=== PATIENT | male | born 1940 | race Caucasian/White ===

== ENCOUNTER 2018-04-14 15:43 | Outpatient (REF) | payer MEDICARE, SELFPAY ==
[2018-04-14 19:17] LABS: HCT 44.8 % (40.0-50.0); HGB 14.6 g/dL (13.5-17.5); Mean Corp. HGB Concentration 32.6 g/dL (32.0-36.0); Mean Corpuscular Hemoglobin 29.4 pg (27.0-33.0); Mean Corpuscular Volume 90.1 fL (80-95); Platelet Count 124 x1000/uL (130-400); RBC 4.97 m/cumm (4.50-6.00); RBC Distribution Width 15.8 % (11.8-14.1); White Blood Cell Count 4.65 k/cumm (4.4-10.8)
[2018-04-14 19:57] LABS: Anion Gap 6.5 mmol/L (3-11); BUN 28 mg/dL (7-18); CO2 30.5 mmol/L (21.0-32.0); CREATININE 1.52 mg/dL (0.70-1.30); Calcium 8.3 mg/dL (8.5-10.1); Chloride 102 mmol/L (98-107); Estimated GFR 44.58 (mL/min/1.73m2); Glucose 123 mg/dL (70-100); LDL CHOLESTEROL 56 mg/dL (<100); Potassium 4.1 mmol/L (3.5-5.1); Sodium 139 mmol/L (136-145)
== END 2018-04-14 16:03 ==
LOC: NCHCN 15:43
PROVIDERS: PCP Internal Medicine; Visit Provider Internal Medicine
DX: I10 Essential (primary) hypertension (principal); Z79.01 Long term (current) use of anticoagulants; K74.60 Unspecified cirrhosis of liver; I48.0 Paroxysmal atrial fibrillation; Z86.2 Personal history of diseases of the blood and blood-forming organs and certain disorders involving the immune mechanism
CPT/HCPCS: 80048; 83721; 85027

== ENCOUNTER → 2018-05-04 12:59 | Outpatient (BNVA) | payer MEDICARE, SELFPAY | PROVIDERS: PCP Internal Medicine; Visit Provider Student in an Organized Health Care Education/Training Program | DX: I25.810 Atherosclerosis of coronary artery bypass graft(s) without angina pectoris (principal); I48.2 Chronic atrial fibrillation; I10 Essential (primary) hypertension; Z95.818 Presence of other cardiac implants and grafts; I08.1 Rheumatic disorders of both mitral and tricuspid valves | CPT/HCPCS: 99214 ==

== ENCOUNTER 2018-10-13 11:31 | Outpatient (REF) | payer MEDICARE, SELFPAY ==
[2018-10-13 18:33] LABS: HCT 46.7 % (40.0-50.0); HGB 15.3 g/dL (13.5-17.5); Mean Corp. HGB Concentration 32.8 g/dL (32.0-36.0); Mean Corpuscular Hemoglobin 29.4 pg (27.0-33.0); Mean Corpuscular Volume 89.6 fL (80-95); Mean Platelet Volume 12.4 fL (8.0-11.0); Platelet Count 109 x1000/uL (130-400); RBC 5.21 m/cumm (4.50-6.00); RBC Distribution Width 15.3 % (11.8-14.1); White Blood Cell Count 4.76 k/cumm (4.4-10.8)
[2018-10-13 18:36] LABS: Albumin 4.4 g/dL (3.4-5.0); BUN 25 mg/dL (7-18); CREATININE 1.31 mg/dL (0.70-1.30); Chloride 102 mmol/L (98-107); Estimated GFR 52.92 (mL/min/1.73m2); Glucose 87 mg/dL (70-100); LDL CHOLESTEROL 55 mg/dL (<100); Potassium 4.7 mmol/L (3.5-5.1); Sodium 141 mmol/L (136-145)
[2018-10-13 19:07] LABS: ALT 31 U/L (12-78); PHOSPHORUS 2.9 mg/dL (2.6-4.7)
== END 2018-10-13 11:51 ==
LOC: NCHCN 11:31
PROVIDERS: PCP Internal Medicine; Visit Provider Internal Medicine
DX: I13.10 Hypertensive heart and chronic kidney disease without heart failure, with stage 1 through stage 4 chronic kidney disease, or unspecified chronic kidney disease (principal); I27.81 Cor pulmonale (chronic); I07.1 Rheumatic tricuspid insufficiency; R18.8 Other ascites
CPT/HCPCS: 80069; 83721; 85027; 84460

== ENCOUNTER → 2018-11-02 12:39 | Outpatient (BNVA) | payer MEDICARE, SELFPAY | PROVIDERS: PCP Internal Medicine; Visit Provider Student in an Organized Health Care Education/Training Program | DX: I36.1 Nonrheumatic tricuspid (valve) insufficiency (principal); I25.10 Atherosclerotic heart disease of native coronary artery without angina pectoris; Z95.4 Presence of other heart-valve replacement; I48.2 Chronic atrial fibrillation; I10 Essential (primary) hypertension | CPT/HCPCS: 99214 ==

== ENCOUNTER 2019-05-03 00:35 | Outpatient (CLI) | payer MEDICARE, SELFPAY ==
--- NOTE | 2019-05-03 09:58 | DI.US_ITS ---
APPROVED REPORT Conclusion Left Ventricle : Left ventricle is borderline dilated. D-shaped septum is consistent with RV pressure and volume overload. Left ventricular systolic function is mild to moderately decreased. Mild concen tric left ventricular hypertrophy. There is normal LV segmental wall motion. LVEF is 45-50%. The di astolic function is indeterminate but likely elevated filling pressures. Right Ventricle : Right ventricle dilated. Right ventricle is moderately hypokinetic. Atria : Left atrium is severely dilated. Right atrium is severely dilated. Aortic Valve : Aortic valve is trileaflet. There is normal aortic valve excursion. Moderate aortic re gurgitation. Mitral Valve : Mitral valve leaflets are thickened. Mitral annuloplasty changes are present. Moderate to severe mitral regurgitation (RF 51%) Mild to moderate mitral stenosis (mean gradient is 5mmhg) Tricuspid Valve : The tricuspid valve leaflets are thickened but open well. Severe tricuspid regurgit ation with hepatic flow reversal. The tricuspid valve leaflets do not completely coapt. Great Vessels : Dilated IVC with poor inspiration collapse is consistent with elevated right atrial p ressure. Compared to echocardiogram dated 07/02/2017 there is a minimal decrease in ejection fraction. Tricus pid regurgitation remains severe and mitral as well as aortic regurgitation remain moderate. EXAM: Comprehensive 2D, Doppler, and color-flow Echocardiogram Patient Location: Out-Patient Seed Cle[employer] Manager: Harini Proctor [facility] ([facility] Indications: CAD, TR, i07.1, i25.10 Left Ventricle Left ventricle is borderline dilated. D-shaped septum is consistent with RV pressure and volume overl oad. Left ventricular systolic function is mild to moderately decreased. Mild concentric left ventric ular hypertrophy. There is normal LV segmental wall motion. The diastolic function is indeterminate b ut likely elevated filling pressures. LVEF is 45-50%. Right Ventricle Right ventricle dilated. Right ventricle is moderately hypokinetic. Atria Left atrium is severely dilated. Right atrium is severely dilated. Aortic Valve Aortic valve is trileaflet. There is normal aortic valve excursion. Moderate aortic regurgitation. Mitral Valve Mitral valve leaflets are thickened. Mitral annuloplasty changes are present. Mild to moderate mitral stenosis (mean gradient is 5mmhg) Moderate to severe mitral regurgitation (RF 51%) Tricuspid Valve The tricuspid valve leaflets are thickened but open well. Severe tricuspid regurgitation with hepatic flow reversal. The tricuspid valve leaflets do not completely coapt. Great Vessels Aortic root is dilated. Dilated IVC with poor inspiration collapse is consistent with elevated right atrial pressure. Pericardium There is no pericardial effusion. 2D Dimensions IVSd 1.13 cm M: 0.6-1.2 LV EDV A2C 112.80 mL PWd 1.27 cm M: 0.6 - 1.2 LV EDV A4C 92.50 mL LVDd 5.62 cm M: 4.2 - 5.9 LA Volume Index A2C 115.16 mL/m2 LVDs 3.92 cm M: 2.5 - 4.0 LA Volume Index A4C 153.02 mL/m2 Aortic Root 3.97 cm M: 3.1 - 3.7 LA Volume Index Biplane 145.35 mL/m2 RA Area A4C 45.98 cm2 LA Area A4C 57.42 cm2 LVOT 2.22 cm (M/F) 1.5-2.5 LA Area A2C 45.50 cm2 Ascending Aorta 3.41 cm M: 2.6 - 3.4 EF AP4 48.76 % LVEF (Teich) 57.12 % EF AP2 45.48 % LVEF ([employer]) 48.81 % M: 52 - 72 EF BP 48.81 % LV Volume 81.12 mL M: 62 - 150 LV Volume Index 40.96 mL/m2 M: 34 - 74 FS 30.37 % LV Diastology MED E' 0.08 (>0.07 m/s) LV E/e MED 20.70 (<14) LAT E' 0.13 (>0.1 m/s) LV E/e LAT 12.98 (<14) Aortic Valve LVOT Area 3.85 cm2 LVOT Peak Cruzito. 0.66 m/s LVOT Mean Cruzito. 0.53 m/s LVOT Peak Gr. 1.72 mmHg ELINA Vmax Index 1.24 cm2/m2 LVOT Mean Gr. 1.20 mmHg LVOT VTI 0.15 m ELINA Mean Cruzito. Index 1.30 cm2/m2 AoV Peak Cruzito. 1.02 (0.5-1.3 m/s) AoV Mean Cruzito. 0.79 m/s AI PHT 350.86 msec AO Peak GR. 4.20 mmHg AO Mean GR. 2.69 (<5 mmHg) AO VTI 0.22 (0.18-0.25 m) AV Regurg Decel. 1209.87 msec ELINA (VTI) 2.60 (2.5-4.5 cm2) ELINA (VTI) Index 1.31 cm/m2 Mitral Valve MV E Max Cruzito. 1.62 (0.4-1.3 m/s) MV Regurg Volume 60.29 mL MV PHT 94.47 msec MV RF 51.62 % MVA PHT 2.33 cm2 Tricuspid Valve TR P. Velocity 2.99 m/s TV Regurg Vmax 2.99 m/s TR P. Gradient 35.81 mmHg
== END 2019-05-03 00:55 ==
PROVIDERS: PCP Internal Medicine; Visit Provider Student in an Organized Health Care Education/Training Program
DX: I07.1 Rheumatic tricuspid insufficiency (principal); I25.10 Atherosclerotic heart disease of native coronary artery without angina pectoris; I05.2 Rheumatic mitral stenosis with insufficiency; I50.1 Left ventricular failure, unspecified; I51.7 Cardiomegaly
CPT/HCPCS: 93306

== ENCOUNTER 2019-05-10 12:25 | Emergency (ER) | payer MEDICARE, SELFPAY ==
[2019-05-10] VITALS (7 sets, daily range): BP systolic 104–144; BP diastolic 66–90; PULSE 59–72; RESP 16–20; TEMP 36.1; O2SAT 97–98
--- NOTE | 2019-05-10 12:39 | W.ED.GENAD ---
Discharge Plan Disposition Patient Disposition: HOME Condition: Stable Discharge Details Chief Complaint: Abd Prob Clinical Impression: Hernia, inguinal, right Primary Care Provider: Rudolph Ryan ED Provider: Barby Greer Home Meds and New Rx's Prescriptions: Continued bisacodyl [Dulcolax (bisacodyl)] 5 MG tablet,delayed release (DR/EC) 5 mg PO ONCE Qty: 4 RF: 0 furosemide 40 MG tablet 40 mg PO DAILY Qty: 30 RF: 0 diltiazem HCl 180 MG capsule,extended release 24 hr 180 mg PO DAILY Qty: 30 RF: 0 aspirin [Aspir-81] 81 MG tablet,delayed release (DR/EC) 81 mg PO DAILY RF: 0 warfarin [Coumadin] 5 MG tablet 5 mg PO QPM RF: 0 atorvastatin [Lipitor] 40 MG tablet 40 mg PO HS RF: 0 losartan 50 MG tablet 50 mg PO DAILY RF: 0 ranitidine HCl [Zantac] 150 MG tablet 150 mg PO BID Qty: 28 RF: 0 Discharge Instructions Instructions: Inguinal Hernia (ED) Additional Instructions: Please continue all your medications including Coumadin as prescribed. Please return immediately to the emergency department if you develop any new or worsening symptoms or if you become otherwise concerned. It is extremely important that you call soon as possible to make an appointment to be seen in follow-up for this visit by a surgeon at [facility] as we discussed, and also by your primary care doctor. Referrals: Rudolph Ryan [Primary Care Provider] - Medical Decision Making Jonathan Garcia is a 78-year-old man with a history of atrial fibrillation on Coumadin, hypertension, hyperlipidemia, coronary artery disease status post CABG, known inguinal hernia who presented to the emergency department with inguinal hernia unable to be reduced at home, one episode of vomiting. On exam patient is well and nontoxic appearing but uncomfortable. Abdominal exam is benign, no right inguinal hernia is present, firm with overlying erythema, very tender to palpation. Concern for possible incarcerated hernia. Exam/history is not consistent with acute aortic process, sepsis. Plan for IV, IV morphine, screening labs, Trendelenburg position plus ice, anticipate likely CT scan. Hernia not reducible by me at bedside after pain medication, ice, Trendelenburg, plan for CT. 14:55: Received call from radiology regarding CT scan results: Inguinal hernia causing obstruction. Patient continues to be uncomfortable, unable to reduce hernia at bedside. After receiving radiology report surgery at [facility] paged, [facility] transfer center contacted immediately and images pushed. 1530: no callback from [facility]. Dr. Kasper has been at bedside with the patient, cannot reduce hernia. She plans to taken to the operating room, requests IV vitamin K. Dr. Kasper called back, request FFP as there will be a delay taking patient to the OR (OR currently being used). I did call [facility] back, transfer center states that they are receiving images extremely slowly, and will call back as soon as CT fully received. Per CRNAs, based on patient 3's recent echocardiogram, he is not a candidate for surgery at [facility] unless surgery is emergent. Dr. Kasper back at bedside attending to reduce. Hernia reduced. No vitamin K or FFP was given prior to reduction. Plan to observe patient in the emergency department, p.o. challenge Patient observed, patient reassessed multiple times, hernia still reduced. Patient tolerated p.o. without issue. Dr. Kasper has sent referral to [facility] for evaluation for surgical repair on a nonemergent basis. I had a lengthy discussion with the patient and his family regarding return to emergency department precautions including red flags for which to return, home care, and importance of outpatient follow-up with his primary care doctor and also with surgery at [facility]. Patient his family verbalized understanding of the plan and were amenable. All questions were answered. Patient was discharged home with clear plan for outpatient follow-up. Medical Records Medical records reviewed: Yes I reviewed the patient's medical records. Imaging Data Radiologic Study: Attestation: I personally reviewed and interpreted this imaging study as follows: Radiologist's impression: EXAM: CT ABDOMEN PELVIS W CLINICAL HISTORY: inguinal hernia, non-reducible TECHNIQUE: CT was performed according to usual protocol. COMPARISON: ABD PELVIS WITH CONTRAST from 05/07/2017 FINDINGS: There is generalized cardiomegaly. There is a hiatal hernia. The liver is normal in size. There is a 1.8 cm cyst in the left lobe of the liver. This has shown some interval increase in size compared to the prior examination. No suspicious hepatic mass is seen. The portal, superior mesenteric, and splenic veins are patent. There are stones seen within the gallbladder. No biliary ductal dilatation is present. The pancreas, spleen and adrenal glands are unremarkable. The kidneys and ureters are unremarkable. The urinary bladder is intact. The prostate gland is enlarged and impinges upon the base of the urinary bladder. There is atherosclerosis of the abdominal aorta. No aneurysmal dilatation is present. No significant abdominal or pelvic adenopathy or pneumoperitoneum is present. No ascites is present. There is a right inguinal hernia. The hernia contains a loop of small bowel. The bowel is dilated within the hernia sac. The small bowel loops proximal to the hernia are moderately dilated. The findings are consistent with an obstruction. The small bowel distal to the hernia and the colon are of normal caliber. There is diverticulosis of the colon but no evidence of acute diverticulitis. Degenerative changes are seen in the spine. There is an S-type scoliotic curvature of the thoracolumbar spine. IMPRESSION: 1. Right inguinal hernia containing a loop of small bowel. Bowel within the hernia sac is dilated. There is also dilatation of the small bowel proximal to the hernia. The findings consistent with obstruction. The bowel within the hernia shows no evidence of bowel wall thickening and there does appear to be normal enhancement of the wall. 2. These findings were discussed with Dr. Barby Greer on the date of the examination. 3. Incidental findings in the abdomen and pelvis as described above. Lab Data Lab results reviewed: Yes I reviewed the patient's lab results. Labs: Laboratory Tests Range/Units 05/10/19 05/10/19 05/10/19 12:56 12:56 12:56 WBC (4.4-10.8) k/cumm 7.82 RBC (4.50-6.00) m/cumm 4.99 Hgb (13.5-17.5) g/dL 14.8 Hct (40.0-50.0) % 45.4 MCV (80-95) fL 91.0 MCH (27.0-33.0) pg 29.7 MCHC (32.0-36.0) g/dL 32.6 RDW (11.8-14.1) % 14.8 H Plt Count (130-400) x1000/uL 130 MPV (8.0-11.0) fL 11.5 H Immature Gran % 0.1 Neutrophils % 87.2 Lymphocytes % 3.7 Monocytes % 8.4 Eosinophils % 0.5 Basophils % 0.1 Absolute Neutrophils (1.2-6.7) k/cumm 6.81 H Absolute Lymphocytes (1.2-3.4) k/cumm 0.29 L Absolute Monocytes (0.11-0.7) k/cumm 0.66 Absolute Eosinophils (0.0-0.7) k/cumm 0.04 Absolute Basophils (0.0-0.2) k/cumm 0.01 PT (9.3-11.0) sec INR (0.9-1.1) Sodium (136-145) mmol/L 139 Potassium (3.5-5.1) mmol/L 4.4 Chloride (98-107) mmol/L 103 Carbon Dioxide (21.0-32.0) mmol/L 26.4 Anion Gap (3-11) mmol/L 9.6 BUN (7-18) mg/dL 24 H Creatinine (0.70-1.30) mg/dL 1.17 Estimated GFR/1.73 m2 (mL/min/1.73m2) >= 60.00 Glucose (70-100) mg/dL 136 H Lactate (0.6-1.4) mmol/L 0.8 Calcium (8.5-10.1) mg/dL 8.9 Total Bilirubin (0.2-1.0) mg/dL 1.8 H AST (15-37) U/L 43 H ALT (16-63) U/L 33 Alkaline Phosphatase (46-116) U/L 78 Total Protein (6.4-8.2) g/dL 7.1 Albumin (3.4-5.0) g/dL 3.1 L Patient ABO/Rh Antibody Screen Range/Units 05/10/19 05/10/19 12:56 15:30 WBC (4.4-10.8) k/cumm RBC (4.50-6.00) m/cumm Hgb (13.5-17.5) g/dL Hct (40.0-50.0) % MCV (80-95) fL MCH (27.0-33.0) pg MCHC (32.0-36.0) g/dL RDW (11.8-14.1) % Plt Count (130-400) x1000/uL MPV (8.0-11.0) fL Immature Gran % Neutrophils % Lymphocytes % Monocytes % Eosinophils % Basophils % Absolute Neutrophils (1.2-6.7) k/cumm Absolute Lymphocytes (1.2-3.4) k/cumm Absolute Monocytes (0.11-0.7) k/cumm Absolute Eosinophils (0.0-0.7) k/cumm Absolute Basophils (0.0-0.2) k/cumm PT (9.3-11.0) sec 23.8 H INR (0.9-1.1) 2.4 H Sodium (136-145) mmol/L Potassium (3.5-5.1) mmol/L Chloride (98-107) mmol/L Carbon Dioxide (21.0-32.0) mmol/L Anion Gap (3-11) mmol/L BUN (7-18) mg/dL Creatinine (0.70-1.30) mg/dL Estimated GFR/1.73 m2 (mL/min/1.73m2) Glucose (70-100) mg/dL Lactate (0.6-1.4) mmol/L Calcium (8.5-10.1) mg/dL Total Bilirubin (0.2-1.0) mg/dL AST (15-37) U/L ALT (16-63) U/L Alkaline Phosphatase (46-116) U/L Total Protein (6.4-8.2) g/dL Albumin (3.4-5.0) g/dL Patient ABO/Rh O Positive Antibody Screen Negative HPI General Mode of arrival: EMS. Date/Time Provider Initiated Documentation: 05/10/19 12:39. Limitations to Documentation: no limitations. Information obtained by: patient, RN notes reviewed and old records reviewed. HPI Narrative: Jonathan Garcia is a 78-year-old man with a history of A. fib on Coumadin, hypertension, high cholesterol, coronary artery disease status post CABG presenting to the emergency department with inguinal hernia pain. Patient states that he has a known inguinal hernia that pops in and out, however he reports that hernia is never out for more than a few minutes. He states that usually he can lie on his right side and hernia will reduce spontaneously. Patient reports that his inguinal hernia popped out approximately 1.5 hours ago, and has not reduced with his usual home maneuvers. He states this is the longest it has ever been out. He reports significant pain at the site. Patient reports that he has vomited one time within the past hour. His last bowel movement was at approximately 7 AM and was normal. He last ate at approximately 7:30 AM. Patient denies any other pain, fevers, cough, shortness of breath. Has been eating and drinking as usual until this morning. No recent illness. Related Data Home Medications Medication Instructions Recorded Confirmed aspirin [Aspir-81] 81 mg PO DAILY 12/18/15 05/10/19 warfarin [Coumadin] 5 mg PO QPM 12/18/15 05/10/19 atorvastatin [Lipitor] 40 mg PO HS 12/20/15 05/10/19 losartan 50 mg PO DAILY 06/12/16 05/10/19 ranitidine HCl [Zantac] 150 mg PO BID #28 tab 05/07/17 05/10/19 bisacodyl [Dulcolax (bisacodyl)] 5 mg PO ONCE #4 tab 05/24/17 05/10/19 diltiazem HCl 180 mg PO DAILY #30 cap 08/04/17 05/10/19 furosemide 40 mg PO DAILY #30 tab-cap 08/04/17 05/10/19 Previous Rx's Medication Instructions Recorded ranitidine HCl [Zantac] 150 mg PO BID #28 tab 05/07/17 bisacodyl [Dulcolax (bisacodyl)] 5 mg PO ONCE #4 tab 05/24/17 diltiazem HCl 180 mg PO DAILY #30 cap 08/04/17 furosemide 40 mg PO DAILY #30 tab-cap 08/04/17 Allergies Allergy/AdvReac Type Severity Reaction Status Date / Time lisinopril AdvReac Intermediate cough Unverified 05/10/19 12:30 spironolactone AdvReac Hyperkalemi Unverified 05/10/19 12:30 a General Stated Complaint: Abd Prob EUSEBIO: 3 Review of Systems Narrative: Constitutional: denies fevers Eyes: denies eye pain ENT: denies facial pain, dental pain, sore throat Cardiovascular: denies chest pain Respiratory: denies SOB, cough GI: denies diarrhea, reportsabdominal pain, vomiting : denies flank pain MSK: denies back pain, neck pain, arthralgias, myalgias Skin: denies rash Neuro: denies headaches, numbness, weakness [facility] Medical History (Updated 05/10/19 @ 16:49 by Lynne Kasper MD) Anemia Anticoagulation adequate Blood in stool Cholelithiasis Cirrhosis Epigastric pain GERD (gastroesophageal reflux disease) History of alcohol abuse Hx of congestive heart failure Hx of mitral valve repair Hx of myocardial infarction 2007 Hyperlipidemia Inguinal hernia Jaundice Lateral femoral cutaneous entrapment syndrome Nail disorder Overweight Paroxysmal atrial fibrillation Rectal bleeding Shortness of breath Surgical History (Updated 05/10/19 @ 16:46 by Lynne Kasper MD) S/P CABG (coronary artery bypass graft) 2009 Social History (Updated 05/10/19 @ 16:46 by Lynne Kasper MD) Smoking/Tobacco Use Status: Former Tobacco Use Alcohol Intake: former Drug use: Never Do you feel safe in your relationship?: Yes Exam Narrative Exam Narrative: Constitutional: well and non-toxic but somewhat uncomfortable appearing, pleasant, conversing normally HENT: head atraumatic/normocephalic/normal inspection, mucous membranes moist Eyes: conjunctiva normal, sclera normal, pupils 3mm b/l Neck: no stridor, normal ROM, trachea midline Chest: normal inspection Resp: normal work of breathing, LCTAB Cardio: normal rate, irregular rhythm, + murmur GI: abdomen soft, non-tender, mild distention without fluid wave, right inguinal hernia firm and tender, mild overlying erythema Skin: warm, dry, normal color, no rash Neuro: alert, not altered, grossly non-focal, normal tone Ext: Moving all extremities equally Psych: normal mood, normal affect, normal behavior Course Vital Signs Vital signs: Vital Signs Temperature 36.1 C L 05/10/19 12:27 Pulse 66 05/10/19 12:27 Respiratory Rate 16 05/10/19 12:27 Blood Pressure 139/90 05/10/19 12:27 Pulse Oximetry 97 05/10/19 12:27 Temperature 36.1 C L 05/10/19 12:27 Temperature Source Temporal Artery Scan 05/10/19 12:27 Pulse 66 05/10/19 12:27 Respiratory Rate 16 05/10/19 12:27 Respiratory Effort Short of Breath 05/10/19 12:27 Blood Pressure 139/90 05/10/19 12:27 Pulse Oximetry 97 05/10/19 12:27 Oxygen Delivery Method Room Air 05/10/19 12:27 Oxygen Flow Rate 0 05/10/19 12:27 Pain Level 7 05/10/19 12:27
[2019-05-10 13:05] LABS: Lactate 0.8 mmol/L (0.6-1.4)
[2019-05-10 13:06] LABS: Abs Immature Grans 0.01 k/cumm (0.0-0.09); Absolute Basophil Count 0.01 k/cumm (0.0-0.2); Absolute Eosinophil Count 0.04 k/cumm (0.0-0.7); Absolute Lymphocyte Count 0.29 k/cumm (1.2-3.4); Absolute Monocyte Count 0.66 k/cumm (0.11-0.7); Absolute Neutrophil Count 6.81 k/cumm (1.2-6.7); Basophils % 0.1; Eosinophils % 0.5; HCT 45.4 % (40.0-50.0); HGB 14.8 g/dL (13.5-17.5); Immature Grans % 0.1; Lymphocytes % 3.7; Mean Corp. HGB Concentration 32.6 g/dL (32.0-36.0); Mean Corpuscular Hemoglobin 29.7 pg (27.0-33.0); Mean Platelet Volume 11.5 fL (8.0-11.0); Monocytes % 8.4; Neutrophils % 87.2; Platelet Count 130 x1000/uL (130-400); RBC 4.99 m/cumm (4.50-6.00); RBC Distribution Width 14.8 % (11.8-14.1); White Blood Cell Count 7.82 k/cumm (4.4-10.8)
[2019-05-10 13:21] LABS: ALT 33 U/L (16-63); AST 43 U/L (15-37); Albumin 3.1 g/dL (3.4-5.0); Alkaline Phosphatase 78 U/L (46-116); Anion Gap 9.6 mmol/L (3-11); BUN 24 mg/dL (7-18); Bilirubin, Total 1.8 mg/dL (0.2-1.0); CO2 26.4 mmol/L (21.0-32.0); CREATININE 1.17 mg/dL (0.70-1.30); Calcium 8.9 mg/dL (8.5-10.1); Chloride 103 mmol/L (98-107); Glucose 136 mg/dL (70-100); Potassium 4.4 mmol/L (3.5-5.1); Sodium 139 mmol/L (136-145); Total Protein 7.1 g/dL (6.4-8.2)
[2019-05-10] MEDS: Normal Saline 1,000 ML 150 ML IV (13:44)
--- NOTE | 2019-05-10 14:26 | DI.CT_ITS ---
EXAM: CT ABDOMEN PELVIS W CLINICAL HISTORY: inguinal hernia, non-reducible TECHNIQUE: CT was performed according to usual protocol. COMPARISON: ABD PELVIS WITH CONTRAST from 05/07/2017 FINDINGS: There is generalized cardiomegaly. There is a hiatal hernia. The liver is normal in size. There is a 1.8 cm cyst in the left lobe of the liver. This has shown s ome interval increase in size compared to the prior examination. No suspicious hepatic mass is seen. The portal, superior mesenteric, and splenic veins are patent. There are stones seen within the ga llbladder. No biliary ductal dilatation is present. The pancreas, spleen and adrenal glands are unr emarkable. The kidneys and ureters are unremarkable. The urinary bladder is intact. The prostate g land is enlarged and impinges upon the base of the urinary bladder. There is atherosclerosis of the abdominal aorta. No aneurysmal dilatation is present. No significant abdominal or pelvic adenopathy or pneumoperitoneum is present. No ascites is present. There is a right inguinal hernia. The hernia contains a loop of small bowel. The bowel is dilated w ithin the hernia sac. The small bowel loops proximal to the hernia are moderately dilated. The find ings are consistent with an obstruction. The small bowel distal to the hernia and the colon are of n ormal caliber. There is diverticulosis of the colon but no evidence of acute diverticulitis. Degene rative changes are seen in the spine. There is an S-type scoliotic curvature of the thoracolumbar sp ine. IMPRESSION: 1. Right inguinal hernia containing a loop of small bowel. Bowel within the hernia sac is dilated. There is also dilatation of the small bowel proximal to the hernia. The findings consistent with obs truction. The bowel within the hernia shows no evidence of bowel wall thickening and there does appe ar to be normal enhancement of the wall. 2. These findings were discussed with Dr. Barby Greer on the date of the examination. 3. Incidental findings in the abdomen and pelvis as described above.
[2019-05-10] MEDS: Omnipaque 350 MG/ML 100 ML BTL IJ (14:29)
[2019-05-10] MEDS: Normal Saline Flush 10 ML SYR IVP (14:30)
[2019-05-10] MEDS: LORazepam 2 MG/ML VIAL 1 MG IVP (15:14)
[2019-05-10 15:19] LABS: INR 2.4 (0.9-1.1); Prothrombin Time 23.8 sec (9.3-11.0)
--- NOTE | 2019-05-10 16:29 | W.SURGCON ---
Date of service: 05/10/19 Time of Service: 16:30 Assessment and Plan Assessment and plan (1) Incarcerated right inguinal hernia: Status: Acute Assessment and plan: A\\ 78 year old with an incarcerated right inguinal hernia. On the second try I was able to reduce the hernia. CT scan showed no bowel wall abnormalities and Lactate was normal. P\\ Due to his heart valve disease our anesthesia group doesn't feel that the case should be done here locally Patient will be referred to [facility] general surgery for consideration of Right and Left inguinal hernia repair In the meantime I have asked the patient to not do any lifting, pushing or pulling. If he coughs he should put some pressure over the hernia site. If he feels a bulge in the area and is unable to reduce it come straight back to the ER. Do not wait at home. History of Present Illness History of Present Illness Chief Complaint: incarcerated right inguinal hernia Narrative: Mr. Garcia is a pleasant 78 year old with a known right inguinal hernia who noted pain and swelling in the right inguinal area around 10 to 11 am. he attempted to reduce the hernia himself as he has done in the past but was unable to. He presented to the ER and was evaluated and a CT scan was done. Ice was placed on the groin. Attempt was made by the ER Physician to reduce the hernia but they were unable to reduce. I was called to evaluate the patient. He is in some mild distress at this time. I gave him 1 mg of ativan and 2 mg of Morphine and attempted to reduce the hernia. The patient was in a lot of pain so I decided to take him to the OR. In reviewing his PMHx it was noted that his ECHO showed issues with all his valves and the anesthesia team did not feel that he should be done here. Request was made to transfer the patient. Also of note the patient is on Coumadin for AFIB. He underwent a Quadrouple bypass in 2009. he had a major Heart attack per patient in 2007. He doesn't complain of chest pain or SOB. A second attempt was made to reduce the hernia and this time I was able to do so. Consults Consult date: 05/10/19 Requesting physician: Barby Greer Review of Systems Constitutional Constitutional: Denies chills, Denies fever(s) and Denies weakness Cardiovascular Cardiovascular: Reports as per HPI, Denies chest pain, Denies chest pain at rest, Denies dyspnea and Denies dyspnea on exertion Respiratory Respiratory: Reports as per HPI, Denies dyspnea and Denies dyspnea on exertion Gastrointestinal Gastrointestinal: Reports as per HPI Genitourinary Genitourinary: Reports system reviewed and no additional complaints, except as docu Musculoskeletal Musculoskeletal: Reports system reviewed and no additional complaints, except as docu Neurologic Neurologic: Reports system reviewed and no additional complaints, except as docu and Denies weakness Psychiatric Psychiatric: Reports system reviewed and no additional complaints, except as docu Endocrine Endocrine: Reports system reviewed and no additional complaints, except as docu Hematologic/Lymphatic Hematologic/Lymphatic: Reports easy bleeding and Reports easy bruising [facility] Medical History (Updated 05/10/19 @ 16:49 by Lynne Kasper MD) Anemia Anticoagulation adequate Blood in stool Cholelithiasis Cirrhosis Epigastric pain GERD (gastroesophageal reflux disease) History of alcohol abuse Hx of congestive heart failure Hx of mitral valve repair Hx of myocardial infarction 2007 Hyperlipidemia Inguinal hernia Jaundice Lateral femoral cutaneous entrapment syndrome Nail disorder Overweight Paroxysmal atrial fibrillation Rectal bleeding Shortness of breath Surgical History (Updated 05/10/19 @ 16:46 by Lynne Kasper MD) S/P CABG (coronary artery bypass graft) 2009 Social History (Updated 05/10/19 @ 16:46 by Lynne Kasper MD) Smoking/Tobacco Use Status: Former Tobacco Use Alcohol Intake: former Drug use: Never Do you feel safe in your relationship?: Yes Exam Const General: cooperative and acute distress mild Orientation: alert and oriented x3 HENMT Head: normocephalic and atraumatic Resp Effort & Inspection: normal respiratory effort Auscultation: clear to auscultation bilaterally Cardio Rate: regular rate Rhythm: abnormal rhythm Heart Sounds: murmur GI Inspection: normal to inspection and visible herniation (Right inguinal) Palpation: soft and hernia umbilical (reducible) and other (small reducible inguinal hernia) Auscultation: normal bowel sounds Male General Exam: Yes normal external exam Penis: normal penis Meatus: meatus normal Scrotum: scrotum normal Testes: normal Results Last Vital Signs Temp 97.0 F L 05/10/19 12:27 Pulse 59 L 05/10/19 13:58 Resp 18 05/10/19 13:58 BP 121/71 05/10/19 13:58 Pulse Ox 97 05/10/19 13:58 Labs Result diagrams: 05/10/19 12:56 05/10/19 12:56 Labs: Laboratory Results - last 24 hr 05/10/19 05/10/19 05/10/19 12:56 12:56 12:56 WBC 7.82 RBC 4.99 Hgb 14.8 Hct 45.4 MCV 91.0 MCH 29.7 MCHC 32.6 RDW 14.8 H Plt Count 130 MPV 11.5 H Immature Gran % 0.1 Neutrophils % 87.2 Lymphocytes % 3.7 Monocytes % 8.4 Eosinophils % 0.5 Basophils % 0.1 Absolute Neutrophils 6.81 H Absolute Lymphocytes 0.29 L Absolute Monocytes 0.66 Absolute Eosinophils 0.04 Absolute Basophils 0.01 PT INR Sodium 139 Potassium 4.4 Chloride 103 Carbon Dioxide 26.4 Anion Gap 9.6 BUN 24 H Creatinine 1.17 Estimated GFR/1.73 m2 >= 60.00 Glucose 136 H Lactate 0.8 Calcium 8.9 Total Bilirubin 1.8 H AST 43 H ALT 33 Alkaline Phosphatase 78 Total Protein 7.1 Albumin 3.1 L Patient ABO/Rh Antibody Screen 05/10/19 05/10/19 12:56 15:30 WBC RBC Hgb Hct MCV MCH MCHC RDW Plt Count MPV Immature Gran % Neutrophils % Lymphocytes % Monocytes % Eosinophils % Basophils % Absolute Neutrophils Absolute Lymphocytes Absolute Monocytes Absolute Eosinophils Absolute Basophils PT 23.8 H INR 2.4 H Sodium Potassium Chloride Carbon Dioxide Anion Gap BUN Creatinine Estimated GFR/1.73 m2 Glucose Lactate Calcium Total Bilirubin AST ALT Alkaline Phosphatase Total Protein Albumin Patient ABO/Rh O Positive Antibody Screen Negative
== END 2019-05-10 18:35 | disposition home or self-care (01) ==
PROVIDERS: Emergency Provider Student in an Organized Health Care Education/Training Program; PCP Internal Medicine
DX: K40.31 Unilateral inguinal hernia, with obstruction, without gangrene, recurrent (principal); I07.1 Rheumatic tricuspid insufficiency; I10 Essential (primary) hypertension; I48.91 Unspecified atrial fibrillation; Z79.01 Long term (current) use of anticoagulants
CPT/HCPCS: 36415; 80053; 86850; 86900; 86901; 99253; 99285; 74177; 83605; 85025; 85610; 99284; J2060; J3430; J3490

== ENCOUNTER → 2019-05-11 10:00 | Outpatient (BNVA) | payer MEDICARE, SELFPAY | PROVIDERS: PCP Internal Medicine; Referring Provider Internal Medicine; Visit Provider Internal Medicine Cardiovascular Disease | DX: I25.10 Atherosclerotic heart disease of native coronary artery without angina pectoris (principal); Z95.1 Presence of aortocoronary bypass graft; I07.1 Rheumatic tricuspid insufficiency; I48.0 Paroxysmal atrial fibrillation; Z98.890 Other specified postprocedural states | CPT/HCPCS: 99205; 99215 ==

== ENCOUNTER → 2020-01-02 13:23 | Outpatient (BNVA) | payer MEDICARE, SELFPAY | PROVIDERS: PCP Internal Medicine; Referring Provider Internal Medicine; Visit Provider Internal Medicine Cardiovascular Disease | DX: I25.10 Atherosclerotic heart disease of native coronary artery without angina pectoris (principal); Z95.1 Presence of aortocoronary bypass graft; I08.1 Rheumatic disorders of both mitral and tricuspid valves; I48.0 Paroxysmal atrial fibrillation | CPT/HCPCS: 99214 ==

== ENCOUNTER 2020-02-22 22:59 | Outpatient (REF) | payer MEDICARE, SELFPAY ==
[2020-02-22 18:50] LABS: HCT 41.6 % (40.0-50.0); HGB 13.6 g/dL (13.5-17.5); MCH 29.5 pg (27.0-33.0); MCHC 32.7 % (32.0-36.0); MCV 90.2 fL (80-95); MPV 12.7 fL (8.0-11.0); Platelet Count 133 10^3/uL (130-400); RBC 4.61 10^6/uL (4.36-5.78); RDW 14.9 % (11.8-14.1); WBC 4.37 10^3/uL (4.4-10.8)
[2020-02-22 19:10] LABS: ALT 31 U/L (16-63); AST 34 U/L (15-37); Albumin 4.4 g/dL (3.4-5.0); Alkaline Phosphatase 79 U/L (46-116); Anion Gap 10.3 mmol/L (3-11); BUN 27 mg/dL (7-18); Bilirubin, Total 1.8 mg/dL (0.2-1.0); CO2 25.7 mmol/L (21.0-32.0); CREATININE 1.55 mg/dL (0.70-1.30); Calcium 8.6 mg/dL (8.5-10.1); Chloride 102 mmol/L (98-107); Estimated GFR 43.36 (mL/min/1.73m2); Glucose 141 mg/dL (74-106); Sodium 138 mmol/L (136-145); Total Protein 6.9 g/dL (6.4-8.2)
== END 2020-02-22 23:19 ==
LOC: NCHCN 22:59
PROVIDERS: PCP Internal Medicine; Visit Provider Internal Medicine
DX: I13.10 Hypertensive heart and chronic kidney disease without heart failure, with stage 1 through stage 4 chronic kidney disease, or unspecified chronic kidney disease (principal); N40.0 Benign prostatic hyperplasia without lower urinary tract symptoms; K21.9 Gastro-esophageal reflux disease without esophagitis
CPT/HCPCS: 80053; 85027

== ENCOUNTER → 2020-07-02 08:54 | Outpatient (BNVA) | payer MEDICARE, SELFPAY | PROVIDERS: PCP Internal Medicine; Referring Provider Internal Medicine; Visit Provider Internal Medicine Cardiovascular Disease | DX: I25.810 Atherosclerosis of coronary artery bypass graft(s) without angina pectoris (principal); I08.1 Rheumatic disorders of both mitral and tricuspid valves; I48.0 Paroxysmal atrial fibrillation | CPT/HCPCS: 99214 ==

== ENCOUNTER 2020-08-28 15:22 | Outpatient (REF) | payer MEDICARE, SELFPAY ==
[2020-08-28 16:11] LABS: HCT 41.9 % (40.0-50.0); HGB 13.3 g/dL (13.5-17.5); MCH 28.6 pg (27.0-33.0); MCHC 31.7 % (32.0-36.0); MCV 90.1 fL (80-95); MPV 12.9 fL (8.0-11.0); Platelet Count 123 10^3/uL (130-400); RBC 4.65 10^6/uL (4.36-5.78); RDW 14.6 % (11.8-14.1); RDW-SD 48.1 fL; WBC 4.25 10^3/uL (4.4-10.8)
[2020-08-28 16:53] LABS: ALT 29 U/L (16-63); Anion Gap 6.8 mmol/L (3-11); BUN 28 mg/dL (7-18); CO2 28.2 mmol/L (21.0-32.0); CREATININE 1.3 mg/dL (0.70-1.30); Calcium 9.3 mg/dL (8.5-10.1); Chloride 104 mmol/L (98-107); Estimated GFR 53.12 (mL/min/1.73m2); Glucose 103 mg/dL (74-106); LDL CHOLESTEROL 46 mg/dL (<100); Potassium 4.4 mmol/L (3.5-5.1); Sodium 139 mmol/L (136-145)
== END 2020-08-28 15:23 | disposition home or self-care (01) ==
LOC: NCHCN 15:22
PROVIDERS: PCP Internal Medicine; Visit Provider Internal Medicine
DX: I48.0 Paroxysmal atrial fibrillation (principal); I13.10 Hypertensive heart and chronic kidney disease without heart failure, with stage 1 through stage 4 chronic kidney disease, or unspecified chronic kidney disease; I07.1 Rheumatic tricuspid insufficiency
CPT/HCPCS: 80048; 83721; 85027; 84460

== ENCOUNTER 2020-09-15 03:51 | Emergency (ER) | payer MEDICARE, SELFPAY ==
--- NOTE | 2020-09-15 03:53 | W.ED.GENAD ---
Discharge Plan Disposition Patient Disposition: HOME Condition: Good Discharge Details Clinical Impression: Acute urinary retention, BPH (benign prostatic hyperplasia) Primary Care Provider: Rudolph Ryan ED Provider: Rudolph Chacko Home Meds and New Rx's Prescriptions: Continued Xarelto 15 mg tablet 15 mg PO DAILY RF: 0 famotidine [Acid Silk Screen Operator (famotidine)] 20 mg tablet 20 mg PO BID RF: 0 furosemide 40 MG tablet 40 mg PO DAILY Qty: 30 RF: 0 diltiazem HCl 180 MG capsule,extended release 24 hr 180 mg PO DAILY Qty: 30 RF: 0 aspirin [Aspir-81] 81 MG tablet,delayed release (DR/EC) 81 mg PO DAILY RF: 0 atorvastatin [Lipitor] 40 MG tablet 40 mg PO HS RF: 0 losartan 50 MG tablet 50 mg PO DAILY RF: 0 tamsulosin 0.4 mg capsule 0.4 mg PO DAILY RF: 0 Discharge Instructions Instructions: Urinary Retention in Men (ED), Lazo Catheter Placement and Care (ED) Additional Instructions: Contact primary care on Wednesday for follow-up in the next few days for catheter removal. Continue current medications. Return to ED for fever, abdominal pain, catheter stops draining, other problems. Referrals: Rudolph Ryan [Primary Care Provider] - Medical Decision Making Patient with history of BPH on Flomax now unable to void. Denies fever, abdominal pain, back pain, hematuria. Will place Lazo and send urinalysis to rule out infection. Urine negative for any sign of infection. Will leave Lazo in place for now. Patient to contact primary care on Wednesday for follow-up and removal of catheter in 3 to 4 days. Return to ED if fever, abdominal pain, complications with catheter. Lab Data Lab results reviewed: Yes I reviewed the patient's lab results. HPI General Mode of arrival: ambulatory. Date/Time Provider Initiated Documentation: 09/15/20 03:52. Limitations to Documentation: no limitations. Information obtained by: patient and RN notes reviewed. HPI Narrative: Patient presents to ED with inability to void. Patient noted over the last few days that he has been having trouble urinating. Tonight he is unable to go at all. He is having suprapubic discomfort. He is on Flomax for BPH. He denies having fever or chills. He denies flank or abdominal pain. He has had no vomiting. He has no hematuria. Related Data Home Medications Medication Instructions Recorded Confirmed aspirin [Aspir-81] 81 mg PO DAILY 12/18/15 09/15/20 atorvastatin [Lipitor] 40 mg PO HS 12/20/15 09/15/20 losartan 50 mg PO DAILY 06/12/16 09/15/20 diltiazem HCl 180 mg PO DAILY #30 cap 08/04/17 09/15/20 furosemide 40 mg PO DAILY #30 tab-cap 08/04/17 09/15/20 famotidine 20 mg tablet 20 mg PO BID 07/02/20 09/15/20 rivaroxaban 15 mg tablet 15 mg PO DAILY 07/02/20 09/15/20 tamsulosin 0.4 mg PO DAILY 09/15/20 09/15/20 Previous Rx's Medication Instructions Recorded diltiazem HCl 180 mg PO DAILY #30 cap 08/04/17 furosemide 40 mg PO DAILY #30 tab-cap 08/04/17 Allergies Allergy/AdvReac Type Severity Reaction Status Date / Time lisinopril AdvReac Intermediate cough Verified 07/02/20 08:58 spironolactone AdvReac Hyperkalemi Verified 07/02/20 08:58 a General EUSEBIO: 3 Review of Systems Narrative: As documented in HPI otherwise negative as below. Const: no fever, chills, weakness Resp: no cough, SOB, pleuritic pain CV: no CP, diaphoresis, edema, syncope GI: no abdominal pain, nausea, vomiting, diarrhea Neuro: no headache, numbness, focal weakness, confusion PFS Medical History (Updated 09/15/20 @ 04:56 by Rudolph Chacko MD) Anemia Anticoagulation adequate BPH (benign prostatic hyperplasia) Cholelithiasis Cirrhosis GERD (gastroesophageal reflux disease) History of alcohol abuse Hx of congestive heart failure Hx of myocardial infarction 2007 Hyperlipidemia Inguinal hernia Overweight Paroxysmal atrial fibrillation Surgical History Hx of mitral valve repair (~2009) S/P CABG (coronary artery bypass graft) 2009 Social History Smoking/Tobacco Use Status: Former Tobacco Use Quit Date: 07/12/89 Tobacco: How many years used: 15 Smoking risk assessment performed?: Yes Alcohol Intake: former Drug use: Never Do you feel safe at home: Yes Do you feel safe in your relationship?: Yes Exam Narrative Exam Narrative: Const: WDWN elderly male in NAD. HEENT: NC/AT. Normal facial exam. Eyes: Normal conjunctiva and sclera. Neck: Supple. Trachea midline. Lungs: Normal respiratory effort. GI: Soft. NT/ND. No guarding or rebound. Neuro: A+O x 3. Normal speech, mentation, gait. Cranial nerves II - XII grossly intact. No gross motor or sensory deficit.
[2020-09-15 03:55] VITALS: BP 157/73; PULSE 68; RESP 18; TEMP 36.2; O2SAT 97
[2020-09-15] MEDS: Lidocaine 2% Jelly 11 ML SYR UR (04:25)
[2020-09-15 04:38] LABS: Bilirubin Negative (Negative); Blood Moderate (Negative); Clarity Clear (Clear); Glucose Negative (Negative); Ketones Negative (Negative); Leukocyte Esterase Negative (Negative); Nitrite Negative (Negative); Specific Gravity 1.025 (1.005-1.025); Urobilinogen 0.2 EU/dL (Up TO 0.2); pH 5.5 (5-8)
[2020-09-15 04:52] LABS: Epithelial Cells Rare HPF (Negative); RBC 20-50 HPF (0-2); WBC 0-2 HPF (0-5)
[2020-09-15 04:53] LABS: Bacteria Few HPF (Negative); C & S Indicated? No; Casts Negative LPF (Negative); Crystals Negative HPF (Negative); Mucus Negative (Negative); Other Cells Few Renal (Negative)
== END 2020-09-15 05:20 | disposition home or self-care (01) ==
LOC: ER 05:23
PROVIDERS: Emergency Provider Emergency Medicine; PCP Internal Medicine
DX: N40.1 Benign prostatic hyperplasia with lower urinary tract symptoms (principal); R33.8 Other retention of urine
CPT/HCPCS: 51702; 99283; 81003; 81015

== ENCOUNTER 2020-09-16 15:17 | Outpatient (REF) | payer MEDICARE, SELFPAY | END 2020-09-16 15:18 | disposition home or self-care (01) | LOC: NCHCN 15:17 | PROVIDERS: PCP Internal Medicine; Visit Provider Internal Medicine | DX: N40.0 Benign prostatic hyperplasia without lower urinary tract symptoms (principal) | CPT/HCPCS: 87086 ==

== ENCOUNTER 2020-09-25 00:40 | Outpatient (CLI) | payer MEDICARE, SELFPAY ==
--- NOTE | 2020-09-25 | DI.US_ITS ---
EXAM: US RENAL CLINICAL HISTORY: BLADDER OUTLET OBSTRUCTION,N32.0,HEMATURIA, TECHNIQUE: Ultrasound of both kidneys performed using standard protocol. COMPARISON: US US ECHOCARDIOGRAM from 05/03/[address] ABDOMEN PELVIS W from 05/10/2019 FINDINGS: RIGHT KIDNEY: Measures 9.4 cm in length. No cysts evident. Normal cortical thickness and corticomedullary different iation .No solid masses No intrarenal calculi nor hydronephrosis. LEFT KIDNEY: Measures 10.7 cm in length. No cysts evident. Normal cortical thickness and corticomedullary differe ntiaion. No solids masses. Small 3 millimeter hyperechoic focus in the inferior pole calyx is noted is probably a nonocclusive small calculus at this level. There appears to be slight dilatation of th e infundibulum of the left kidney. URINARY BLADDER: Prevoid volume is 475 cc Postvoid volume is significantly increased at 401 cc Prostate gland is significantly enlarged. The bladder wall exhibits significant trabeculation and there is debris in the gallbladder lumen. Supa th ureterovesical jets were identified. IMPRESSION: 1. The bladder wall is grossly trabeculated. The prostate gland is significantly enlarged (47 cc vo lume). There is a significant increased residual postvoid amount of urine in the bladder (400 cc) ur ology consult recommended. 2. There appears to be a small 3 millimeter calculus in the lower pole of the left kidney. In addit ion, there is slight dilatation of the infundibulum of the left kidney which may indicate an element of mild hydronephrosis. This may be related to the fullness of the urinary bladder, a ureteral calcu isreal, or other pathology. 3. No significant findings in the right kidney. DATA REPOSITORY:
== END 2020-09-25 01:00 ==
PROVIDERS: PCP Internal Medicine; Visit Provider Internal Medicine
DX: N32.0 Bladder-neck obstruction (principal); R31.9 Hematuria, unspecified; N40.1 Benign prostatic hyperplasia with lower urinary tract symptoms; R33.8 Other retention of urine
CPT/HCPCS: 51702; 76770; 99215; G2212

== ENCOUNTER 2020-09-25 13:11 | Outpatient (REF) | payer MEDICARE, SELFPAY ==
[2020-09-25 21:49] LABS: PSA, Screening 70.6 ng/mL (0.0-6.5)
== END 2020-09-25 13:12 | disposition home or self-care (01) ==
LOC: LBN 13:11
PROVIDERS: PCP Internal Medicine; Visit Provider Nurse Practitioner Gerontology
DX: R33.8 Other retention of urine (principal); N40.0 Benign prostatic hyperplasia without lower urinary tract symptoms; Z12.5 Encounter for screening for malignant neoplasm of prostate
CPT/HCPCS: 84153

== ENCOUNTER → 2020-10-09 13:55 | Outpatient (BNVA) | payer MEDICARE, SELFPAY | PROVIDERS: PCP Internal Medicine; Referring Provider Internal Medicine; Visit Provider Nurse Practitioner Gerontology | DX: R97.20 Elevated prostate specific antigen [PSA] (principal); R33.8 Other retention of urine | CPT/HCPCS: 99215 ==

== ENCOUNTER → 2020-10-29 08:23 | Outpatient (BNVA) | payer MEDICARE, SELFPAY | PROVIDERS: PCP Internal Medicine; Referring Provider Internal Medicine; Visit Provider Nurse Practitioner Gerontology | DX: N40.2 Nodular prostate without lower urinary tract symptoms (principal); R97.20 Elevated prostate specific antigen [PSA]; N40.1 Benign prostatic hyperplasia with lower urinary tract symptoms; R33.8 Other retention of urine | CPT/HCPCS: 51702 ==

== ENCOUNTER 2020-11-04 11:08 | Day surgery (SDC) | payer MEDICARE, SELFPAY ==
--- NOTE | 2020-11-04 10:59 | W.ANESPRE ---
Anesthesia Assessment and Plan Anesthesia History Personal History: No History of Anesthesia Complications and Unknown Anesthesia History Family History: No Family History of Anesthesia Complications Exercise Tolerance Exercise Tolerance: Metabolic Equivalents<4 Cardiac & Pulmonary Exam Cardiac Exam: Normal S1/S2 Heart Sounds (irregular) Pulmonary Exam: Clear Bilateral Breath Sounds Airway Exam Known Difficult Airway: No Mallampati Class: 2 Mouth Opening: Normal (> 3cm) Thyromental Distance: Greater than 3 cm Neck Range of Motion: Full ROM Neck Circumference: Normal Teeth Condition: Removable Dentures/Plates Upper and Removable Dentures/Plates Lower ASA Classification ASA Score: ASA 3 ASA Emergency: No NPO Status NPO Status: NPO Clears >2 hours, Solids >8 hours Anesthesia Plan Anesthesia Technique: MAC Anesthesia (no mko, pt agrees) Airway Planned: Natural Airway Monitors Used: Standard Monitors Additional Preop Comments:: 01/02/20 Cardiology note. Mr. Garcia is a 79-year-old gentleman with past medical history significant for PAF, coronary bypass surgery, mitral valve repair (currently with moderate to severe MR), and severe TR who presents now as follow-up. He was last seen in April 2019 which was also the time of his last echocardiogram. At that time he was not short of breath nor did he have any other significant symptoms. He was last previously evaluated at [facility] in the spring 2017 to discuss redo surgery but at that point his symptoms remained minimal so they elected to just watch and wait. From a symptom standpoint he continues to do well. He stacked about a cord of wood the other day with the help of his son without any limitations. He did not have any shortness of breath or chest pain. He says he occasionally gets a little bit of swelling in his ankles but the furosemide helps with that quite a bit or he just keeps his legs up. He denies any shortness of breath when laying down flat or significant symptoms of orthopnea. Imaging and Studies Imaging and Studies Echocardiogram Summary Conclusion Left Ventricle : Left ventricle is borderline dilated. D-shaped septum is consistent with RV pressure and volume overload. Left ventricular systolic function is mild to moderately decreased. Mild concentric left ventricular hypertrophy. There is normal LV segmental wall motion. LVEF is 45-50%. The diastolic function is indeterminate but likely elevated filling pressures. Right Ventricle : Right ventricle dilated. Right ventricle is moderately hypokinetic. Atria : Left atrium is severely dilated. Right atrium is severely dilated. Aortic Valve : Aortic valve is trileaflet. There is normal aortic valve excursion. Moderate aortic regurgitation. Mitral Valve : Mitral valve leaflets are thickened. Mitral annuloplasty changes are present. Moderate to severe mitral regurgitation (RF 51%) Mild to moderate mitral stenosis (mean gradient is 5mmhg) Tricuspid Valve : The tricuspid valve leaflets are thickened but open well. Severe tricuspid regurgitation with hepatic flow reversal. The tricuspid valve leaflets do not completely coapt. Great Vessels : Dilated IVC with poor inspiration collapse is consistent with elevated right atrial pressure. Compared to echocardiogram dated 07/02/2017 there is a minimal decrease in ejection fraction. Tricuspid regurgitation remains severe and mitral as well as aortic regurgitation remain moderate. General Info Date of Service This is a Shared Provider Document. All providers who document on this will be required to sign document once completed. Please Communicate with Team Date Performed: 11/04/20 Height: 5 ft 10 in Weight: 83 kg Body Mass Index (BMI): 26.2 Surgical Procedure: Operation Date: 11/04/20 14:55 Proposed Procedures Side Surgeon p Cataract Extraction with IOL Implant Right Aly Henry MD Vital Signs and Lab Results Vital Signs Most Recent Vital Signs in EMR: Temp Pulse Resp BP Pulse Ox 36.3 C L 75 16 137/71 97 11/04/20 11:32 11/04/20 11:32 11/04/20 11:32 11/04/20 11:32 11/04/20 11:32 Manually Entered Vital Signs Most Recent Manually Entered Vital Signs: Adult Blood Pressure: 137/71 Heart Rate: 75 Respirations: 16 Oxygen Saturation (%): 97 Temperature (C): 36.3 C Pain Score (0-10 Scale): 0 Point of Care Results Nursing Point of Care Results: No Data to Display Lab Results Blood Type / Crossmatch: Patient ABO/Rh O Positive 05/10/19 15:30 05/10/19 Antibody Screen Negative 05/10/19 15:30 05/10/19 Complete Blood Count: White Blood Count 4.25 10^3/uL (4.4-10.8) L 08/28/20 12:00 08/28/20 Red Blood Count 4.65 10^6/uL (4.36-5.78) 08/28/20 12:00 08/28/20 Hemoglobin 13.3 g/dL (13.5-17.5) L 08/28/20 12:00 08/28/20 Hematocrit 41.9 % (40.0-50.0) 08/28/20 12:00 08/28/20 Platelet Count 123 10^3/uL (130-400) L 08/28/20 12:00 08/28/20 Lactate 0.8 mmol/L (0.6-1.4) 05/10/19 12:56 05/10/19 Complete Metabolic Panel: Sodium Level 139 mmol/L (136-145) 08/28/20 12:00 08/28/20 Potassium Level 4.4 mmol/L (3.5-5.1) 08/28/20 12:00 08/28/20 Chloride Level 104 mmol/L (98-107) 08/28/20 12:00 08/28/20 Carbon Dioxide Level 28.2 mmol/L (21.0-32.0) 08/28/20 12:00 08/28/20 Blood Urea Nitrogen 28 mg/dL (7-18) H 08/28/20 12:00 08/28/20 Creatinine 1.3 mg/dL (0.70-1.30) 08/28/20 12:00 08/28/20 Calcium Level 9.3 mg/dL (8.5-10.1) 08/28/20 12:00 08/28/20 Albumin 4.4 g/dL (3.4-5.0) 02/22/20 14:30 02/22/20 Glucose Level 103 mg/dL (74-106) 08/28/20 12:00 08/28/20 Liver Function Panel: Alanine Aminotransferase (ALT/SGPT) 29 U/L (16-63) 08/28/20 12:00 08/28/20 Aspartate Amino Transf (AST/SGOT) 34 U/L (15-37) 02/22/20 14:30 02/22/20 Coagulation Panel: INR International Normalized Ratio 2.4 (0.9-1.1) H 05/10/19 12:56 05/10/19 Prothrombin Time 23.8 sec (9.3-11.0) H 05/10/19 12:56 05/10/19 Cardiac Panel: NN-Pbe-F-Type Natriuretic Peptide 1564 pg/mL (-299) H 10/29/15 08:15 10/29/15 Creatine Kinase 63 U/L (39-308) 07/18/13 09:17 07/18/13 Arterial Blood Gas: No Data to Display Venous Blood Gas: No Data to Display Pancreas Panel: Lipase 140 U/L (73-393) 05/07/17 12:05 05/07/17 Thyroid Panel: No Data to Display Infectious Disease: No Data to Display Blood Cultures: Blood Culture Toxicology Panel: No Data to Display Panel: No Data to Display PFSH Active Problems Active Problems: Problem Status Onset Code Posterior subcapsular age-related cataract, right eye H25.041 Nuclear sclerotic cataract of right eye H25.11 Urinary retention due to benign prostatic hyperplasia N40.1, R33.8 Elevated PSA, greater than or equal to 20 ng/ml R97.20 Acute urinary retention R33.8 BPH (benign prostatic hyperplasia) N40.0 Tricuspid regurgitation I07.1 Paroxysmal atrial fibrillation Incarcerated right inguinal hernia K40.30 Medical History A-fib Anemia Anticoagulation adequate Ascites Bladder outlet obstruction BPH (benign prostatic hyperplasia) Cardiorenal syndrome Cholelithiasis Cirrhosis Congestive heart failure Cor pulmonale Corns and callus Elevated PSA, greater than or equal to 20 ng/ml GERD (gastroesophageal reflux disease) History of alcohol abuse Hx of congestive heart failure Hx of myocardial infarction 2007 Hyperlipidemia Inguinal hernia Jaundice Lateral femoral cutaneous entrapment syndrome Myocardial infarct Nail disorder Nocturnal leg cramps Overweight Pain, joint, knee, left Paroxysmal atrial fibrillation Rectal bleeding Urinary retention due to benign prostatic hyperplasia Surgical History Hx of CABG Hx of mitral valve repair (~2009) S/P CABG (coronary artery bypass graft) 2009 Social History Smoking/Tobacco Use Status: Former Tobacco Use Quit Date: 07/12/89 Tobacco: How many years used: 15 Smoking risk assessment performed?: Yes Alcohol Intake: former Drug use: Never Substance use type: does not use Do you feel safe at home: Yes Do you feel safe in your relationship?: Yes Meds Allergies and Home Medications Allergies Allergy/AdvReac Type Severity Reaction Status Date / Time lisinopril AdvReac Intermediate cough Verified 11/04/20 11:28 spironolactone AdvReac Hyperkalemi Verified 11/04/20 11:28 a Home Medication Medication Instructions Recorded aspirin [Aspir-81] 81 mg PO DAILY 12/18/15 atorvastatin [Lipitor] 40 mg PO HS 12/20/15 losartan 50 mg PO DAILY 06/12/16 diltiazem HCl 180 mg PO DAILY #30 cap 08/04/17 furosemide 40 mg PO DAILY #30 tab-cap 08/04/17 famotidine 20 mg tablet 20 mg PO BID 07/02/20 rivaroxaban 15 mg tablet 15 mg PO DAILY 07/02/20 tamsulosin 0.4 mg capsule 0.8 mg PO DAILY cap 09/25/20 levofloxacin 500 mg tablet 500 mg PO DAILY #3 tab 10/29/20
[2020-11-04] MEDS: Tropicam./Phenyleph. (1/2.5%) 5 ML BTL OD ×3 (11:28→11:40)
[2020-11-04 11:32] VITALS: BP 137/71; PULSE 75; RESP 16; TEMP 36.3; O2SAT 97
[2020-11-04 12:05] VITALS: BP 137/71; PULSE 75; RESP 16; TEMPC 36.3; O2SAT 97; BMI 26.2
[2020-11-04] MEDS: Tetracaine 0.5% 4 ML BTL OD (12:29)
[2020-11-04] MEDS: Lidocaine 2% Jelly 6 ML SYR (12:30)
[2020-11-04] MEDS: Povidone-Iodine Ophth 30 ML BTL (12:30)
[2020-11-04] MEDS: Lidocaine 1% Pres-Free 5 ML VIAL (12:37)
[2020-11-04] MEDS: Trypan Blue 0.06% 0.5 ML SYR (12:39)
[2020-11-04] MEDS: Balanced Salt Soln.-PLUS 500 ML BAG (12:40)
[2020-11-04] MEDS: Duovisc Viscoelastic System EACH 1 EACH (12:44)
--- NOTE | 2020-11-04 13:09 | PDOC.DSDIS_ITS ---
Discharge Plan Disposition Patient Disposition: HOME Condition: Good Discharge Details Attending Provider: Aly Henry Primary Care Provider: Rudolph Ryan [place] Meds and New Rx's Prescriptions: No Action levofloxacin 500 mg tablet 500 mg PO DAILY Qty: 3 RF: 0 Xarelto 15 mg tablet 15 mg PO DAILY RF: 0 famotidine [Acid Re Recording Mixer (famotidine)] 20 mg tablet 20 mg PO BID RF: 0 furosemide 40 MG tablet 40 mg PO DAILY Qty: 30 RF: 0 diltiazem HCl 180 MG capsule,extended release 24 hr 180 mg PO DAILY Qty: 30 RF: 0 aspirin [Aspir-81] 81 MG tablet,delayed release (DR/EC) 81 mg PO DAILY RF: 0 atorvastatin [Lipitor] 40 MG tablet 40 mg PO HS RF: 0 losartan 50 MG tablet 50 mg PO DAILY RF: 0 tamsulosin 0.4 mg capsule 0.8 mg PO DAILY RF: 0 Discharge Instructions Stand Alone Forms: Post-op Topical Cataract, Ange Jamil (DSU) Discharge Orders Discharge Orders: Discharge Order (Routine); Ordered 11/04/20 Ordered By: Aly Henry DS: Diagnosis Discharge Diagnosis (1) Posterior subcapsular age-related cataract, right eye: Status: Resolved (2) Nuclear sclerotic cataract of right eye: Status: Resolved
[2020-11-04 13:10] VITALS: BP 119/64; PULSE 78; RESP 16; TEMP 35.8; O2SAT 96
--- NOTE | 2020-11-04 13:11 | W.PM.OP ---
Date of service: 11/04/20 Time of Service: 13:11 Operative Note Operative Note DATE OF PROCEDURE: 11/04/20 PRE-OP DIAGNOSIS: Nuclear/posterior subcapsular cataract, right eye Poor red reflex, right eye secondary to cataract Poorly dilating pupil, right eye POST-OP DIAGNOSIS: same PROCEDURE: Cataract extraction using phacoemulsification with intraocular lens implant, right eye, with pupillary dilation using Malyugin Ring and capsular staining using Vision Blue SURGEON: Aly Henry Refer to Anesthesia Record ESTIMATED BLOOD LOSS: 0 PATHOLOGY: none sent COMPLICATIONS: None Patient was transported to: same day Patient's condition: stable Implants: Kg and Kg / [employer] Tecnis [id number] Indications: Progressive decreased vision due to cataract, right eye Procedure Description: CATARACT SURGERY OPERATIVE REPORT PREOPERATIVE DIAGNOSIS: 1. Nuclear/posterior subcapsular cataract, right eye 2. Poorly dilating pupil, right eye 3. Poor red reflex, right eye POSTOPERATIVE DIAGNOSIS: Same OPERATION: 1. Cataract extraction using phacoemulsification with posterior chamber intraocular lens implant, right eye. 2. Pupillary dilation and iris stabilization using Malyugin Ring 3. Capsular staining with VIsion Blue IOL: IOL Engine Buildup Mechanic/Model: Kg & Kg / JULI Tecnis [id number] IOL Power: + 23.5 diopters IOL Serial Number: [id number] Optic Diameter: 6.0mm Haptic/Overall Diameter: 13.0mm PHACO INFO: Antione Centurion Vision System with OZil and Active Fluidics Cumulative Dispersed Energy (CDE): 11.61 seconds SURGEON: Aly Henry MD, ELINA ANESTHESIA: Monitored Anesthesia Care (MAC), with local sub-tenon's anesthetic infiltration COMPLICATIONS: None SPECIMENS: None INDICATIONS FOR PROCEDURE: Patient is an 79-year-old gentleman with history of diminished visual acuity in both eyes secondary to the development of a significant nuclear and posterior subcapsular cataract with visual acuity of 2400. He is significantly symptomatic that he desires cataract surgery and attempt to improve and maximize his vision. Pupils dilate poorly and he has a poor red reflex due to the dense cataract. The option of cataract surgery was offered to the patient and he wished to proceed. PROCEDURE: The correct surgical eye was identified and marked as the right eye and the pupil was dilated in the preoperative area using mydriatics and cycloplegics. The dilated pupil size was 4.5 mm. He elected to proceed without oral sedation.. The patient was brought to the operating room where cardiopulmonary monitoring was instituted and surgical time-out was performed, confirming the correct operative eye and IOL power. Topical anesthesia was administered and ophthalmic povidone-iodine 5% was instilled into the conjunctival fornices. Lidocaine gel was applied to the cornea and the saumya-ocular area was prepped with Betadine 10% solution and draped in the usual sterile fashion for intraocular surgery, including an aperture drape. A Tegaderm transparent film dressing was cut in half and used to cover the lashes and lid margins. Care was taken to sequester the lashes and lid margins under the Tegaderm dressing. A lid speculum was placed between the lids of the operative eye and the Kimani-Vannessa operating microscope was maneuvered into position. Ying scissors were then used to make a conjunctival buttonhole approximately 6mm posterior to the limbus in the inferonasal quadrant. Blunt dissection was carried out to expose bare sclera, and a blunt-tipped sub-tenon?s anesthesia cannula was introduced and passed posteriorly along the globe where non-preserved plain lidocaine was injected into posterior sub-Tenon?s space. A sideport knife was used to make a paracentesis port inferiortemporally. Intraocular phenylephrine/lidocaine was injected into the anterior chamber. Air was then injected into anterior chamber, followed by Vision Blue, which was painted over the anterior capsule and then irrigated out with BSS. The anterior chamber was then filled with viscoelastic. A 2.4mm keratome knife was used to create a half-thickness groove at the limbus and then to construct a three-plane near-clear corneal tunnel extending 2.0mm into clear cornea superiortemporally. A 7.0 mm Malyugin Ring was then inserted into the pupillary space and engaged with the Kuglen hook. A flap was raised on the anterior capsule and capsulorhexis forceps were used to complete a continuous curvilinear capsulorhexis of 5.0 mm. Balanced salt solution was then used to perform cortical cleaving hydrodissection and nuclear hydrodelineation until the lens could be freely rotated within the capsular bag. The lens nucleus was then disassembled and removed within the capsular bag and iris plane using phacoemulsification. Residual cortical material was removed using the 45-degree angled silicone I/A tip with 0.3mm port. The posterior capsule was carefully polished to remove as much residual lens epithelial cells as safely possible. The capsular bag was then inflated and the anterior chamber deepened with viscoelastic. The lens implant described above was inserted into the capsular bag using the [employer] Injector. A Kuglen hook was used to dial the IOL into position. The Malyugin Ring was removed in the reverse order of its insertion. Residual viscoelastic was then removed first from posterior to the IOL, then from the anterior chamber using the I/A handpiece. The lens implant was noted to center nicely within the capsular bag. The incisions were stromally hydrated, and the anterior chamber was reformed using BSS. Then 0.5cc of moxifloxacin 1.0mg/ml were injected into the capsular bag and anterior chamber. The incisions were checked with a Weck spear and found to be secure. Several drops of ophthalmic povidone-iodine 5% were then applied to the eye followed by two drops of Imprimis combination prednisoone/moxifloxacin/nepafenac solution. The drapes were removed and a clear plastic protective eye shield was placed over the eye. The patient was then returned to Same Day Surgery in stable condition.
--- NOTE | 2020-11-04 13:15 | W.ANESPOSTOP ---
Postoperative Evaluation Date, Time and Location Date Performed: 11/04/20 Time Performed: 13:15 Patient Location: Day Surgery Unit Vital Signs Most Recent Imported Vital Signs: Most Recent Vital Signs Temp Pulse Resp BP Pulse Ox 38.8 C H 78 16 119/64 96 11/04/20 13:10 11/04/20 13:10 11/04/20 13:10 11/04/20 13:10 11/04/20 13:10 Assessment Mental Status: Awake (Alert & Oriented to Patient Baseline) Airway and Respiratory Function: Patent airway with normal (patient baseline) respiratory exam Cardiovascular Function: Hemodynamically Stable Hydration Status: Adequately Hydrated Nausea & Vomiting: No Nausea or Vomiting Pain: Pt. Denies Any Pain Peripheral Nerve Block: Patient did not receive a nerve block
== END 2020-11-04 13:40 | disposition home or self-care (01) ==
PROVIDERS: PCP Internal Medicine; Visit Provider Ophthalmology
PROC: (CPT 66982; principal; 2020-11-04 14:45)
DX: H25.041 Posterior subcapsular polar age-related cataract, right eye (principal); H25.11 Age-related nuclear cataract, right eye; H35.89 Other specified retinal disorders; H57.09 Other anomalies of pupillary function
CPT/HCPCS: 66982; V2632

== ENCOUNTER 2020-11-18 07:23 | Day surgery (SDC) | payer MEDICARE, SELFPAY ==
[2020-11-18 07:44] VITALS: BP 128/68; PULSE 72; RESP 16; TEMP 36.6; O2SAT 97
[2020-11-18] MEDS: Tropicam./Phenyleph. (1/2.5%) 5 ML BTL OS ×3 (07:45→07:55)
--- NOTE | 2020-11-18 08:38 | W.ANESPRE ---
General Info Date of Service Date Performed: 11/18/20 Height: 5 ft 10 in Weight: 83.5 kg Body Mass Index (BMI): 26.4 Surgical Procedure: Operation Date: 11/18/20 09:40 Proposed Procedures Side Surgeon p Cataract Extraction with IOL Implant Left Aly Henry MD Meds Allergies and Home Medications Allergies Allergy/AdvReac Type Severity Reaction Status Date / Time lisinopril AdvReac Intermediate cough Verified 11/18/20 07:39 spironolactone AdvReac Hyperkalemi Verified 11/18/20 07:39 a Home Medication Medication Instructions Recorded aspirin [Aspir-81] 81 mg PO DAILY 12/18/15 atorvastatin [Lipitor] 40 mg PO HS 12/20/15 losartan 50 mg PO DAILY 06/12/16 diltiazem HCl 180 mg PO DAILY #30 cap 08/04/17 furosemide 40 mg PO DAILY #30 tab-cap 08/04/17 famotidine 20 mg tablet 20 mg PO BID 07/02/20 rivaroxaban 15 mg tablet 15 mg PO DAILY 07/02/20 tamsulosin 0.4 mg capsule 0.8 mg PO DAILY cap 09/25/20 levofloxacin 500 mg tablet 500 mg PO DAILY #3 tab 10/29/20 Current Visit Medications: Current Medications Generic Name Dose Route Start Last Admin Trade Name Freq PRN Reason Stop Dose Admin Acetaminophen 1,000 mg 11/18/20 06:00 Acetaminophen 500 Mg Tab PO Q4H PRN PRN Miscellaneous Medication 0 ml 11/18/20 06:00 Prednisolone 1%, Moxifloxacin 0.5%, Nepafenac 0.1% 5ml Btl OS DIRECTED [facility] Miscellaneous Medication 0 ml 11/18/20 06:00 11/18/20 07:55 Tropicam./Phenyleph. (1/2.5%) 5 Ml Btl OS 1 drp DIRECTED JOE Administration Tetracaine HCl 0 ml 11/18/20 06:00 Tetracaine 0.5% 4 Ml Btl OS DIRECTED JOE PFSH Active Problems Active Problems: Problem Status Onset Code Incarcerated right inguinal hernia K40.30 Tricuspid regurgitation I07.1 Acute urinary retention R33.8 Nuclear sclerotic cataract of right eye H25.11 Posterior subcapsular age-related cataract, right eye H25.041 Nuclear sclerotic cataract of left eye H25.12 Posterior subcapsular age-related cataract of left eye H25.042 Urinary retention due to benign prostatic hyperplasia N40.1, R33.8 Elevated PSA, greater than or equal to 20 ng/ml R97.20 BPH (benign prostatic hyperplasia) N40.0 Paroxysmal atrial fibrillation Medical History Medical History A-fib Anemia Anticoagulation adequate Ascites Bladder outlet obstruction BPH (benign prostatic hyperplasia) Cardiorenal syndrome Cholelithiasis Cirrhosis Congestive heart failure Cor pulmonale Corns and callus Elevated PSA, greater than or equal to 20 ng/ml GERD (gastroesophageal reflux disease) History of alcohol abuse Hx of congestive heart failure Hx of myocardial infarction 2007 Hyperlipidemia Inguinal hernia Jaundice Lateral femoral cutaneous entrapment syndrome Myocardial infarct Nail disorder Nocturnal leg cramps Overweight Pain, joint, knee, left Paroxysmal atrial fibrillation Rectal bleeding Urinary retention due to benign prostatic hyperplasia Surgical History Surgical History (Updated 11/18/20 @ 07:39 by Desi Conley) Hx of CABG Hx of cataract surgery Hx of colonoscopy Hx of inguinal hernia surgery Hx of mitral valve repair (~2009) S/P CABG (coronary artery bypass graft) 2009 Tobacco Smoking/Tobacco Use Status: Former Tobacco Use Tobacco: How many years used: 15 Alcohol Alcohol Intake: former Substance Use Substance use: Never Substance use type: does not use Vital Signs and Lab Results Vital Signs Most Recent Vital Signs in EMR: Most Recent Vital Signs Temp Pulse Resp BP Pulse Ox 36.6 C 72 16 128/68 97 11/18/20 07:44 11/18/20 07:44 11/18/20 07:44 11/18/20 07:44 11/18/20 07:44 Lab Results Blood Type / Crossmatch: Patient ABO/Rh O Positive 05/10/19 15:30 05/10/19 Antibody Screen Negative 05/10/19 15:30 05/10/19 Complete Blood Count: White Blood Count 4.25 10^3/uL (4.4-10.8) L 08/28/20 12:00 08/28/20 Red Blood Count 4.65 10^6/uL (4.36-5.78) 08/28/20 12:00 08/28/20 Hemoglobin 13.3 g/dL (13.5-17.5) L 08/28/20 12:00 08/28/20 Hematocrit 41.9 % (40.0-50.0) 08/28/20 12:00 08/28/20 Platelet Count 123 10^3/uL (130-400) L 08/28/20 12:00 08/28/20 Lactate 0.8 mmol/L (0.6-1.4) 05/10/19 12:56 05/10/19 Complete Metabolic Panel: Sodium Level 139 mmol/L (136-145) 08/28/20 12:00 08/28/20 Potassium Level 4.4 mmol/L (3.5-5.1) 08/28/20 12:00 08/28/20 Chloride Level 104 mmol/L (98-107) 08/28/20 12:00 08/28/20 Carbon Dioxide Level 28.2 mmol/L (21.0-32.0) 08/28/20 12:00 08/28/20 Blood Urea Nitrogen 28 mg/dL (7-18) H 08/28/20 12:00 08/28/20 Creatinine 1.3 mg/dL (0.70-1.30) 08/28/20 12:00 08/28/20 Calcium Level 9.3 mg/dL (8.5-10.1) 08/28/20 12:00 08/28/20 Albumin 4.4 g/dL (3.4-5.0) 02/22/20 14:30 02/22/20 Glucose Level 103 mg/dL (74-106) 08/28/20 12:00 08/28/20 Liver Function Panel: Alanine Aminotransferase (ALT/SGPT) 29 U/L (16-63) 08/28/20 12:00 08/28/20 Aspartate Amino Transf (AST/SGOT) 34 U/L (15-37) 02/22/20 14:30 02/22/20 Coagulation Panel: INR International Normalized Ratio 2.4 (0.9-1.1) H 05/10/19 12:56 05/10/19 Prothrombin Time 23.8 sec (9.3-11.0) H 05/10/19 12:56 05/10/19 Cardiac Panel: NK-Xmm-L-Type Natriuretic Peptide 1564 pg/mL (-299) H 10/29/15 08:15 10/29/15 Creatine Kinase 63 U/L (39-308) 07/18/13 09:17 07/18/13 Arterial Blood Gas: No Data to Display Venous Blood Gas: No Data to Display Pancreas Panel: Lipase 140 U/L (73-393) 05/07/17 12:05 05/07/17 Thyroid Panel: No Data to Display Infectious Disease: No Data to Display Blood Cultures: No Data to Display Toxicology Panel: No Data to Display Imaging and Studies Imaging and Studies Echocardiogram Summary:: 04/2019: Conclusion Left Ventricle : Left ventricle is borderline dilated. D-shaped septum is consistent with RV pressure and volume overload. Left ventricular systolic function is mild to moderately decreased. Mild concentric left ventricular hypertrophy. There is normal LV segmental wall motion. LVEF is 45-50%. The diastolic function is indeterminate but likely elevated filling pressures. Right Ventricle : Right ventricle dilated. Right ventricle is moderately hypokinetic. Atria : Left atrium is severely dilated. Right atrium is severely dilated. Aortic Valve : Aortic valve is trileaflet. There is normal aortic valve excursion. Moderate aortic regurgitation. Mitral Valve : Mitral valve leaflets are thickened. Mitral annuloplasty changes are present. Moderate to severe mitral regurgitation (RF 51%) Mild to moderate mitral stenosis (mean gradient is 5mmhg) Tricuspid Valve : The tricuspid valve leaflets are thickened but open well. Severe tricuspid regurgitation with hepatic flow reversal. The tricuspid valve leaflets do not completely coapt. Great Vessels : Dilated IVC with poor inspiration collapse is consistent with elevated right atrial pressure. Compared to echocardiogram dated 07/02/2017 there is a minimal decrease in ejection fraction. Tricuspid regurgitation remains severe and mitral as well as aortic regurgitation remain moderate. Anesthesia Assessment and Plan Anesthesia History Personal History: No History of Anesthesia Complications Family History: No Family History of Anesthesia Complications Exercise Tolerance Exercise Tolerance: Metabolic Equivalents>4 Pertinent Negatives Pertinent Negatives: No Symptoms of GERD Cardiac & Pulmonary Exam Cardiac Exam: Heart Murmur Present Pulmonary Exam: Clear Bilateral Breath Sounds Airway Exam Known Difficult Airway: No Mallampati Class: 2 Mouth Opening: Normal (> 3cm) Thyromental Distance: Greater than 3 cm Neck Range of Motion: Full ROM Neck Circumference: Normal Teeth Condition: Removable Dentures/Plates Upper ASA Classification ASA Score: ASA 3 Emergency Case?: No NPO Status NPO Status: NPO Clears >2 hours, Solids >8 hours Anesthesia Plan Anesthesia Technique: MAC Anesthesia Airway Planned: Natural Airway Monitors Used: Standard Monitors
[2020-11-18 08:47] VITALS: BMI 26.4
[2020-11-18] MEDS: Tetracaine 0.5% 4 ML BTL OS (09:33)
[2020-11-18] MEDS: Balanced Salt Soln.-PLUS 500 ML BAG (09:34)
[2020-11-18] MEDS: Duovisc Viscoelastic System EACH 1 EACH (09:35)
[2020-11-18] MEDS: Lidocaine 1% Pres-Free 5 ML VIAL (09:35)
[2020-11-18] MEDS: Lidocaine 2% Jelly 6 ML SYR (09:36)
[2020-11-18] MEDS: Povidone-Iodine Ophth 30 ML BTL (09:37)
--- NOTE | 2020-11-18 09:44 | W.PM.DSUDISC ---
Discharge Plan Disposition Patient Disposition: HOME Condition: Good Discharge Details Attending Provider: Aly Henry Primary Care Provider: Rudolph Ryan [place] Meds and New Rx's Prescriptions: No Action levofloxacin 500 mg tablet 500 mg PO DAILY Qty: 3 RF: 0 Xarelto 15 mg tablet 15 mg PO DAILY RF: 0 famotidine [Acid Online Program Coordinator (famotidine)] 20 mg tablet 20 mg PO BID RF: 0 furosemide 40 MG tablet 40 mg PO DAILY Qty: 30 RF: 0 diltiazem HCl 180 MG capsule,extended release 24 hr 180 mg PO DAILY Qty: 30 RF: 0 aspirin [Aspir-81] 81 MG tablet,delayed release (DR/EC) 81 mg PO DAILY RF: 0 atorvastatin [Lipitor] 40 MG tablet 40 mg PO HS RF: 0 losartan 50 MG tablet 50 mg PO DAILY RF: 0 tamsulosin 0.4 mg capsule 0.8 mg PO DAILY RF: 0 Discharge Instructions Stand Alone Forms: Post-op Block Cataract, Post-op Topical Cataract, Press Ganey (DSU) Discharge Orders Discharge Orders: Discharge Order (Routine); Ordered 11/18/20 Ordered By: Aly Henry DS: Diagnosis Discharge Diagnosis (1) Nuclear sclerotic cataract of left eye: Status: Resolved (2) Posterior subcapsular age-related cataract of left eye: Status: Resolved
--- NOTE | 2020-11-18 09:45 | ROE_ITS ---
Date of service: 11/18/20 Time of Service: 09:45 Operative Note Operative Note DATE OF PROCEDURE: 11/18/20 PRE-OP DIAGNOSIS: Nuclear/posterior subcapsular cataract, left eye Poorly dilating pupil, left eye POST-OP DIAGNOSIS: same PROCEDURE: Cataract extraction by phacoemulsification with intraocular lens implantation, left eye, with pupillary expansion device SURGEON: Aly Henry ANESTHESIA TYPE: Local By Surgeon and MAC Refer to Anesthesia Record ESTIMATED BLOOD LOSS: 0 PATHOLOGY: none sent COMPLICATIONS: None Patient was transported to: same day Patient's condition: stable Implants: Kg and Kg / [employer] Tecnis [id number] Indications: Progressive decreased vision, left eye Procedure Description: CATARACT SURGERY OPERATIVE REPORT PREOPERATIVE DIAGNOSIS: 1. Nuclear/posterior subcapsular cataract, left eye 2. Poorly dilating pupil, left eye POSTOPERATIVE DIAGNOSIS: Same OPERATION: 1. Cataract extraction using phacoemulsification with posterior chamber int raocular lens implant, left eye. 2. Pupillary dilation and iris stabilization using Malyugin Ring IOL; IOL Medical Transcription Radiology/Model: Kg & Kg / JULI Tecnis [id number] IOL Power: + 22.5 diopters IOL Serial Number: [id number] Optic Diameter: 6.0 mm Haptic/Overall Diameter: 13.00 mm PHACO INFO: Antione Directed Edgeurion Vision System with OZil and Active Fluidics Cumulative Dispersed Energy (CDE): 8.45 seconds SURGEON: Aly Henry MD, ELINA ANESTHESIA: Monitored Anesthesia Care (MAC), with local sub-tenon's anesthetic infiltration COMPLICATIONS: None SPECIMENS: None INDICATIONS FOR PROCEDURE: The patient is an 79-year-old gentleman with history of diminished visual acuity in his left eye secondary to the development of nuclear and posterior subcapsular cataract. He has already undergone cataract surgery in his right eye and is doing well postoperatively. He now presents for cataract surgery in the left eye. PROCEDURE: The correct surgical eye was identified and marked as the left eye and the pupil was dilated in the preoperative area using mydriatics, cycloplegics, and NSAIDS (except in aspirin allergic patients). The dilated pupil size was 4.0 mm. He elected to proceed without oral sedation. The patient was brought to the operating room where cardiopulmonary monitoring was instituted and surgical time-out was performed, confirming the correct operative eye and IOL power. Topical anesthesia was administered and ophthalmic povidone-iodine 5% was instilled into the conjunctival fornices. Lidocaine gel was applied to the cornea and the saumya-ocular area was prepped with Betadine 10% solution and draped in the usual sterile fashion for intraocular surgery, including an aperture drape. A Tegaderm transparent film dressing was cut in half and used to cover the lashes and lid margins. Care was taken to sequester the lashes and lid margins under the Tegaderm dressing. A lid speculum was placed between the lids of the operative eye and the Kimani-Vannessa operating microscope was ma neuvered into position. Ying scissors were then used to make a conjunctival buttonhole approximately 6mm posterior to the limbus in the inferonasal quadrant. Blunt dissection was carried out to expose bare sclera, and a blunt-tipped sub-tenon?s anesthesia cannula was introduced and passed posteriorly along the globe where non- preserved plain lidocaine was injected into posterior sub-Tenon?s space. A sideport knife was used to make a paracentesis port superiorly/superiortemporally. Intraocular phenylephrine/lidocaine was injected into the anterior chamber. The anterior chamber was then filled with viscoelastic. A 2.4mm keratome knife was used to create a half-thickness groove at the limbus and then to construct a three-plane near-clear corneal tunnel extending 2.0mm into clear cornea at the temporal position. A 7.0 mm Malyugin Ring was then inserted into the pupillary space and engaged with the Kuglen hook. A flap was raised on the anterior capsule and capsulorhexis forceps were used to complete a continuous curvilinear capsulorhexis of 5.0 mm. Balanced salt solution was then used to perform cortical cleaving hydrodissection and nuclear hydrodelineation until the lens could be freely rotated within the capsular bag. The lens nucleus was then disassembled and removed within the capsular bag and iris plane using phacoemulsification. Residual cortical material was removed using the 45-degree angled silicone I/A tip with 0.3mm port. The posterior capsule was carefully polished to remove as much residual lens epithelial cells as safely possible. The capsular bag was th en inflated and the anterior chamber deepened with viscoelastic. The lens implant described above was inserted into the capsular bag using the JULI [place] Injector. A Kuglen hook was used to dial the IOL into position. The Malyugin Ring was removed in the reverse order of its insertion. Residual viscoelastic was then removed first from posterior to the IOL, then from the anterior chamber using the I/A handpiece. The lens implant was noted to center nicely within the capsular bag. The incisions were stromally hydrated, and the anterior chamber was reformed using BSS. Then 0.5cc of moxifloxacin 1.0mg/ml were injected into the capsular bag and anterior chamber. The incisions were checked with a Weck spear and found to be secure. Several drops of ophthalmic povidone-iodine 5% were then applied to the eye followed by two drops of Imprimis combination prednisolone/moxifloxacin/nepafenac solution. The drapes were removed and a clear plastic protective eye shield was placed over the eye. The patient was then returned to Same Day Surgery in stable condition.
[2020-11-18 09:47] VITALS: BP 111/78; PULSE 75; RESP 16; TEMP 36.4; O2SAT 98
--- NOTE | 2020-11-18 13:54 | W.ANESPOSTOP ---
Postoperative Evaluation Date, Time and Location Date Performed: 11/18/20 Time Performed: 13:55 Patient Location: Day Surgery Unit Vital Signs Most Recent Imported Vital Signs: Most Recent Vital Signs Temp Pulse Resp BP Pulse Ox 36.4 C L 75 16 111/78 98 11/18/20 09:47 11/18/20 09:47 11/18/20 09:47 11/18/20 09:47 11/18/20 09:47 Pain Score Most Recent Pain Score: Most Recent Pain Score Pain Level 0 11/18/20 07:44 Assessment Mental Status: Awake (Alert & Oriented to Patient Baseline) Airway and Respiratory Function: Patent airway with normal (patient baseline) respiratory exam Cardiovascular Function: Hemodynamically Stable Hydration Status: Adequately Hydrated Nausea & Vomiting: No Nausea or Vomiting Pain: Pt. Denies Any Pain Peripheral Nerve Block: Patient did not receive a nerve block
== END 2020-11-18 10:00 | disposition home or self-care (01) ==
PROVIDERS: PCP Internal Medicine; Visit Provider Ophthalmology
PROC: (CPT 66982; principal; 2020-11-18 09:30)
DX: H25.12 Age-related nuclear cataract, left eye (principal); H25.042 Posterior subcapsular polar age-related cataract, left eye; H57.09 Other anomalies of pupillary function; Z98.41 Cataract extraction status, right eye; Z96.1 Presence of intraocular lens
CPT/HCPCS: 66982; V2632

== ENCOUNTER 2020-12-03 01:23 | Outpatient (CLI) | payer MEDICARE, SELFPAY ==
--- NOTE | 2020-12-03 07:00 | DI.US_ITS ---
Exam(s) US PROSTATE BIOPSY EXAM: US PROSTATE BIOPSY CLINICAL HISTORY: elevated PSA and prostate nodule,N40.2 TECHNIQUE: Ultrasound performed using standard protocol. COMPARISON: FINDINGS: Ultrasound was provided for Dr. Lazcano for guidance with performing a prostate biopsy. Prostate volume is 37 cc. Please see procedure note for details. DATA REPOSITORY:
--- NOTE | 2020-12-03 08:15 | PROST_PTH ---
PATIENT: Jonathan Garcia Jr LOC: [facility] U#:[id number] AGE/SX: 79/M ROOM: RE12/03/[address]: Lisa Kathleen DNP : 1940 BED: DIS: 12/03/2020 SPEC #: [id number] RECD: 12/03/20 12:20 STATUS: LILIANA CORDOVA #: [id number] ALLYSON: 12/03/20 08:[address]: Lisa Kathleen DEPT: Surgical Specimen RECD BY: Ariella Fraser ENTERED: 12/03/20 12:23 SP TYPE: PROST OTHR DR: Rudolph Ryan Tissues: 1 - PROSTATE NEEDLE BIOPSY 2 - PROSTATE NEEDLE BIOPSY 3 - PROSTATE NEEDLE BIOPSY 4 - PROSTATE NEEDLE BIOPSY 5 - PROSTATE NEEDLE BIOPSY 6 - PROSTATE NEEDLE BIOPSY 7 - PROSTATE NEEDLE BIOPSY 8 - PROSTATE NEEDLE BIOPSY 9 - PROSTATE NEEDLE BIOPSY 10 - PROSTATE NEEDLE BIOPSY 11 - PROSTATE NEEDLE BIOPSY 12 - PROSTATE NEEDLE BIOPSY Procedures: GROSS AND MICRO LEVEL 4 Comments: [id number]
--- NOTE | 2020-12-03 09:43 | W.PM.OP ---
Date of service: 12/03/20 Time of Service: 08:05 Operative Note Operative Note DATE OF PROCEDURE: 12/03/20 PRE-OP DIAGNOSIS: Elevated PSA POST-OP DIAGNOSIS: same PROCEDURE: Transrectal ultrasound-guided biopsy of the prostate SURGEON: Gasper Lazcano ANESTHESIA TYPE: Local By Surgeon Refer to Anesthesia Record ESTIMATED BLOOD LOSS: 15 PATHOLOGY: other (12 Laterally directed biopsies of the prostate) COMPLICATIONS: None Patient was transported to: no change Patient's condition: stable Implants: None Indications: This is a 79-year-old gentleman who has a history of urinary retention. He currently has an indwelling urethral catheter. He was identified as having a PSA level of 70.6 ng/dL. He also had a left sided prostate nodule on digital rectal exam. He presents for ultrasound-guided biopsy of the prostate Findings: Asymmetry of the prostate with the right side being larger than the left. Prostate volume calculated at 37 cc Procedure Description: The patient was given a preprocedural mechanical and antibiotic bowel prep. He was brought to the radiology suite on 12/03/2020. He was placed in the left lateral position. Transrectal imaging of the prostate was performed using a variable megahertz transducer. The prostate was imaged in transverse and longitudinal planes. The transition zone was enlarged but asymmetrical with the right side of the prostate being larger than the left. The peripheral zone was a relatively hypoechoic compared to the transition zone. A periprostatic nerve block was then performed using 1% lidocaine. A total of 12 laterally directed biopsies were then taken, labeled and sent to pathology for permanent section. The patient tolerated the procedure well with no complications.
== END 2020-12-03 01:43 ==
PROVIDERS: PCP Internal Medicine; Visit Provider Nurse Practitioner Gerontology
DX: R97.20 Elevated prostate specific antigen [PSA] (principal); C61 Malignant neoplasm of prostate; R33.9 Retention of urine, unspecified
CPT/HCPCS: 55700; 76872; 76942; 88305

== ENCOUNTER → 2020-12-17 10:51 | Outpatient (BNVA) | payer MEDICARE, SELFPAY | PROVIDERS: PCP Internal Medicine; Referring Provider Internal Medicine; Visit Provider Urology | DX: C61 Malignant neoplasm of prostate (principal) | CPT/HCPCS: 96402; 99214; J9217 ==

== ENCOUNTER 2020-12-25 00:35 | Outpatient (CLI) | payer MEDICARE, SELFPAY ==
--- NOTE | 2020-12-25 06:30 | DI.NM_ITS ---
Exam(s) NM BONE SCAN WHOLE BODY GRP EXAM: NM BONE SCAN WHOLE BODY GRP CLINICAL HISTORY: r/o mets,PROSTATE CA,C61. TECHNIQUE: Injected Dose: 25 mCi Tc-99m MDP Delayed Images: 2-3 hours. COMPARISON: CT CT ABDOMEN PELVIS W from 12/25/[address] ABDOMEN PELVIS W from 12/25/2020 FINDINGS: There is abnormal increased uptake seen in the posterior aspect both size of the bony pelvis consiste nt with metastatic disease in the medial aspect of both iliac bones adjacent to the sacroiliac joints . This is slightly more extensive on the right side. Also in the right side of S1 vertebral body an d in the mid lower sacrum. There does not appear to be involvement of the skeleton above the pelvis nor the level hips and femurs. Some focal increased uptake in the medial compartment left knee is no charan which is most probably degenerative. There is no abnormal uptake seen in the rib cages in skull nor in the shoulder girdles. IMPRESSION: 1. 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 No abnormal intraosseous uptake above the pelvis level. DATA REPOSITORY:
[2020-12-25] MEDS: Breeza Beverage 473 ML BTL PO ×2 (07:53→07:54)
[2020-12-25 08:32] LABS: CREATININE 1.3 mg/dL (0.70-1.30); Estimated GFR 52.98 (mL/min/1.73m2)
--- NOTE | 2020-12-25 10:02 | DI.CT_ITS ---
Exam(s) CT ABDOMEN PELVIS W EXAM: CT ABDOMEN PELVIS W CLINICAL HISTORY: r/o mets, PROSTATE CA,C61. TECHNIQUE: Imaging Protocol: Axial computed tomography images with coronal and sagittal reformatted images were created and reviewed CONTRAST MATERIAL: Intravenous: Omnipaque 100cc Oral: None COMPARISON: CT CT ABDOMEN PELVIS W from 05/10/2019 FINDINGS: VISUALIZED LUNG BASES: No nodules nor pleural effusions evident. Sternotomy wires and large generali zed cardiomegaly is again noted. There is no pericardial effusion. 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 ABDOMEN: There is no ascites. LIVER: There is an unchanged benign cyst in the left hepatic lobe measuring 2.5 x 1.8 cm. No new foc al hepatic findings. GALLBLADDER/BILIARY: Multiple gallstones are again noted. There is no gallbladder wall edema nor per icholecystic fluid. CBD is not dilated. PANCREAS: No evidence of pancreatic mass nor dilatation of the pancreatic duct. SPLEEN: Mild splenomegaly is again noted. Splenic and portal veins are patent. ADRENALS: There are no significant adrenal masses. KIDNEYS:No cysts evident. No solid renal masses. No calculi nor hydronephrosis.. ABDOMINAL AORTA: Abdominal aorta is not enlarged. LYMPH NODES:There is no retroperitineal nor paraaortic adenopathy. ABDOMINAL WALL: There is a fat containing anterior abdominal wall umbilical hernia. Although this do es not contain bowel loops it does appear to contain some vessels with mild streaking in the fat, mor e so than previous. There is, however, no evidence of bowel obstruction and no transition point at t his level. GI: There is no evidence of bowel obstruction, free air, nor abscess. PELVIS: GI: No evidence of appendicitis.There is a redundant sigmoid. There is sigmoid diverticulosis. No e vidence of acute diverticulitis. LYMPH NODES: There is no intrapelvic nor inguinal adenopathy. REPRODUCTIVE: Moderately enlarged prostate gland. URINARY BLADDER: Lazo catheter is in the urinary bladder. The bladder is not overly distended OSSEOUS: Sclerotic density is noted in posterior aspect of both iliac bones significantly increased f rom April 2019 and therefore suspicious for osseous blastic metastatic disease. Also a smaller but increasing size sclerotic density is noted in the right side of S1 vertebral body measuring 10 x 10 millimeters. IMPRESSION: 1. 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 2. Enlarged heart. No pericardial effusion. Sternotomy wires. Mitral valve prosthesis. 3. Cholelithiasis again noted. No evidence of acute cholecystitis nor dilatation of the biliary tree . 4. Stable appearing solitary cyst in the liver again noted. 5. There is a fat containing small anterior abdominal wall umbilical hernia. No bowel loops therein nor bowel diameter transition point at this level. RADIATION DOSE DELIVERED: 1,593.42mGy.cm Total DLP DATA REPOSITORY: All CT scans at this facility are submitted to the National Radiology Data Registry (NRDR) Dose Index Registry (DIR) with the [employer] (ACR). RADIATION OPTIMIZATION: All CT scans at this facility use at least one of these dose optimization te chniques: automated exposure control; mA and/or kV adjustment per patient size (includes targeted exa ms where dose is matched to clinical indication); or iterative reconstruction.
[2020-12-25] MEDS: Normal Saline - Diluent 50 ML VIAL IV (10:03)
[2020-12-25] MEDS: Omnipaque 350 MG/ML 100 ML BTL IJ (10:05)
== END 2020-12-25 00:55 ==
PROVIDERS: PCP Internal Medicine; Visit Provider Urology
DX: I51.7 Cardiomegaly (principal); N40.0 Benign prostatic hyperplasia without lower urinary tract symptoms; K80.20 Calculus of gallbladder without cholecystitis without obstruction; K42.9 Umbilical hernia without obstruction or gangrene; K76.89 Other specified diseases of liver; M89.8X8 Other specified disorders of bone, other site; C61 Malignant neoplasm of prostate; Z96.0 Presence of urogenital implants
CPT/HCPCS: 78306; 74177; 82565; J3490

== ENCOUNTER → 2021-01-14 10:50 | Outpatient (BNVA) | payer MEDICARE, SELFPAY | PROVIDERS: PCP Internal Medicine; Referring Provider Internal Medicine; Visit Provider Urology | DX: C61 Malignant neoplasm of prostate (principal); C79.51 Secondary malignant neoplasm of bone; R97.20 Elevated prostate specific antigen [PSA]; Z46.6 Encounter for fitting and adjustment of urinary device | CPT/HCPCS: 51702; 96402; 99213; J9217 ==

== ENCOUNTER 2021-01-14 15:26 | Outpatient (REF) | payer MEDICARE, SELFPAY ==
[2021-01-18 15:59] LABS: Testosterone, Total 47 ng/dL (240-950)
== END 2021-01-14 15:27 | disposition home or self-care (01) ==
LOC: LBN 15:26
PROVIDERS: PCP Internal Medicine; Visit Provider Urology
DX: C61 Malignant neoplasm of prostate (principal)
CPT/HCPCS: 84403; 84153

== ENCOUNTER → 2021-02-24 13:48 | Outpatient (BNVA) | payer MEDICARE, SELFPAY | PROVIDERS: PCP Internal Medicine; Referring Provider Internal Medicine; Visit Provider Nurse Practitioner Gerontology | DX: C61 Malignant neoplasm of prostate (principal); C79.51 Secondary malignant neoplasm of bone; R97.20 Elevated prostate specific antigen [PSA]; R33.8 Other retention of urine; Z46.6 Encounter for fitting and adjustment of urinary device | CPT/HCPCS: 51702; 96402; J9217 ==

== ENCOUNTER 2021-03-18 08:49 | Outpatient (RCR) | payer MEDICARE, SELFPAY ==
[2021-03-18 11:23] LABS: Abs Immature Grans 0.01 10^3/uL (0.0-0.06); Absolute Basophil Count 0.01 10^3/uL (0.0-0.2); Absolute Eosinophil Count 0.03 10^3/uL (0.0-0.7); Absolute Lymphocyte Count 0.41 10^3/uL (1.2-3.4); Absolute Monocyte Count 0.42 10^3/uL (0.1-0.8); Absolute Neutrophil Count 3.35 10^3/uL (1.2-6.7); Basophils % 0.2; Eosinophils % 0.7; HCT 39.2 % (40.0-50.0); HGB 12.8 g/dL (13.5-17.5); Immature Grans % 0.2; Lymphocytes % 9.7; MCH 29.8 pg (27.0-33.0); MCHC 32.7 % (32.0-36.0); MCV 91.2 fL (80-95); MPV 12.1 fL (8.0-11.0); Monocytes % 9.9; Neutrophils % 79.3; Nucleated RBC 0 %; Platelet Count 124 10^3/uL (130-400); RDW 14.5 % (11.8-14.1); RDW-SD 48.4 fL; WBC 4.23 10^3/uL (4.4-10.8)
[2021-03-18 11:43] LABS: ALT 35 U/L (16-63); AST 34 U/L (15-37); Albumin 4.1 g/dL (3.4-5.0); Alkaline Phosphatase 75 U/L (46-116); Anion Gap 6.5 mmol/L (3-11); BUN 23 mg/dL (7-18); Bilirubin, Total 1.1 mg/dL (0.2-1.0); CO2 29.5 mmol/L (21.0-32.0); CREATININE 1.2 mg/dL (0.70-1.30); Calcium 8.9 mg/dL (8.5-10.1); Chloride 104 mmol/L (98-107); Estimated GFR 58.11 (mL/min/1.73m2); Glucose 107 mg/dL (74-106); Potassium 4.3 mmol/L (3.5-5.1); Sodium 140 mmol/L (136-145); Total Protein 7.3 g/dL (6.4-8.2)
[2021-03-19 13:13] LABS: PSA, Ultrasensitive 2.1 ng/mL (<= 7.2)
[2021-03-21 14:48] LABS: Testosterone, Total <7.0 ng/dL (240-950)
== END 2021-04-10 23:59 | disposition home or self-care (01) ==
LOC: INF 08:49
PROVIDERS: PCP Internal Medicine; Visit Provider Internal Medicine
DX: C61 Malignant neoplasm of prostate (principal); C79.51 Secondary malignant neoplasm of bone
CPT/HCPCS: 36415; 80053; 84153; 84403; 85025

== ENCOUNTER 2021-03-20 01:15 | Outpatient (CLI) | payer MEDICARE, SELFPAY ==
--- NOTE | 2021-03-20 | DI.CT_ITS ---
Exam(s) CT CHEST WO EXAM: CT CHEST WO CLINICAL HISTORY: METASTATIC PROSTATE CA,C61,C79.51,STAGING EXAM. TECHNIQUE: Multi planar reconstructions were performed. CONTRAST MATERIAL: None COMPARISON: CT CT ABDOMEN PELVIS W from 12/25/[address] ABDOMEN PELVIS W from 12/25/2020 FINDINGS: CHEST: LUNGS: There are no infiltrates nor pleural effusions. No ominous pulmonary nodules. No focal findi ngs in the trachea and mainstem bronchi. MEDIASTINUM: There is no obvious hilar nor mediastinal adenopathy. Visualized thyroid unremarkable.No subcarinal adenopathy. No axillary adenopathy. Symmetrical bilateral gynecomastia noted. CARDIAC: Cardiomegaly and sternotomy wires are again noted. Prosthetic mitral valve again noted. Th ere is no pericardial effusion.Coronary artery calcification. VISUALIZED UPPER ABDOMEN:Moderate size hiatal hernia. Multiple gallstones. No gallbladder distentio n or gallbladder wall edema. Well-defined hypodensity in the anterior aspect of the left hepatic lob e noted. This were shown to be a benign cyst on previous contrast infused is study. No significant adrenal masses. OSSEOUS: No significant osseous lesions.. IMPRESSION: 1. Lungs are clear. No metastatic nodules nor pleural effusions and no infiltrates. 2. No obvious intrathoracic adenopathy. 3. Sternotomy. Cardiomegaly and prosthetic mitral valve. No pericardial effusion. 4. No significant osseous lesions identified in the field of view of this study. 5. Hiatal hernia. Gallstones. Benign hepatic cyst noted. RADIATION DOSE DELIVERED: 592.32mGy.cm Total DLP DATA REPOSITORY: All CT scans at this facility are submitted to the National Radiology Data Registry (NRDR) Dose Index Registry (DIR) with the [employer] (ACR). RADIATION OPTIMIZATION: All CT scans at this facility use at least one of these dose optimization te chniques: automated exposure control; mA and/or kV adjustment per patient size (includes targeted exa ms where dose is matched to clinical indication); or iterative reconstruction.
== END 2021-03-20 01:35 ==
PROVIDERS: PCP Internal Medicine; Visit Provider Internal Medicine
DX: C61 Malignant neoplasm of prostate (principal); C79.51 Secondary malignant neoplasm of bone; I51.7 Cardiomegaly; Z95.2 Presence of prosthetic heart valve; K44.9 Diaphragmatic hernia without obstruction or gangrene; K80.20 Calculus of gallbladder without cholecystitis without obstruction; K76.89 Other specified diseases of liver
CPT/HCPCS: 71250

== ENCOUNTER → 2021-04-08 11:20 | Outpatient (BNVA) | payer MEDICARE, SELFPAY | PROVIDERS: PCP Internal Medicine; Visit Provider Nurse Practitioner Gerontology | DX: C61 Malignant neoplasm of prostate (principal); R97.20 Elevated prostate specific antigen [PSA]; Z79.899 Other long term (current) drug therapy; C79.51 Secondary malignant neoplasm of bone | CPT/HCPCS: 51702; 96402; 99213; J9217 ==

== ENCOUNTER 2021-04-18 02:04 | Outpatient (CLI) | payer MEDICARE, SELFPAY ==
[2021-04-18 15:15] LABS: Abs Immature Grans 0.02 10^3/uL (0.0-0.06); Absolute Basophil Count 0.02 10^3/uL (0.0-0.2); Absolute Eosinophil Count 0.02 10^3/uL (0.0-0.7); Absolute Lymphocyte Count 0.28 10^3/uL (1.2-3.4); Absolute Monocyte Count 0.42 10^3/uL (0.1-0.8); Absolute Neutrophil Count 5.26 10^3/uL (1.2-6.7); Basophils % 0.3; Eosinophils % 0.3; HCT 38.6 % (40.0-50.0); HGB 12.3 g/dL (13.5-17.5); Immature Grans % 0.3; Lymphocytes % 4.7; MCH 29.7 pg (27.0-33.0); MCHC 31.9 % (32.0-36.0); MCV 93.2 fL (80-95); MPV 11.8 fL (8.0-11.0); Neutrophils % 87.4; Nucleated RBC 0 %; Platelet Count 123 10^3/uL (130-400); RBC 4.14 10^6/uL (4.36-5.78); RDW 13.9 % (11.8-14.1); RDW-SD 47.4 fL; WBC 6.02 10^3/uL (4.4-10.8)
[2021-04-18 15:25] LABS: ALT 28 U/L (16-63); AST 23 U/L (15-37); Albumin 4.1 g/dL (3.4-5.0); Alkaline Phosphatase 69 U/L (46-116); Anion Gap 3.2 mmol/L (3-11); BUN 24 mg/dL (7-18); Bilirubin, Total 1.6 mg/dL (0.2-1.0); CO2 31.8 mmol/L (21.0-32.0); CREATININE 1.5 mg/dL (0.70-1.30); Calcium 8.6 mg/dL (8.5-10.1); Chloride 104 mmol/L (98-107); Estimated GFR 44.92 (mL/min/1.73m2); Glucose 130 mg/dL (74-106); Potassium 4.2 mmol/L (3.5-5.1); Sodium 139 mmol/L (136-145)
[2021-04-19 12:45] LABS: PSA, Ultrasensitive 1.3 ng/mL (<= 7.2)
[2021-04-22 01:35] LABS: Testosterone, Total <7.0 ng/dL (240-950)
== END 2021-04-18 02:05 | disposition home or self-care (01) ==
LOC: LBO 02:04
PROVIDERS: PCP Internal Medicine; Visit Provider Internal Medicine
DX: C61 Malignant neoplasm of prostate (principal); C79.51 Secondary malignant neoplasm of bone
CPT/HCPCS: 36415; 80053; 84153; 84403; 85025

== ENCOUNTER 2021-05-06 03:38 | Outpatient (CLI) | payer MEDICARE, SELFPAY ==
[2021-05-06 10:43] LABS: Abs Immature Grans 0.02 10^3/uL (0.0-0.06); Absolute Basophil Count 0.03 10^3/uL (0.0-0.2); Absolute Eosinophil Count 0.04 10^3/uL (0.0-0.7); Absolute Monocyte Count 0.55 10^3/uL (0.1-0.8); Absolute Neutrophil Count 5.47 10^3/uL (1.2-6.7); Basophils % 0.5; Eosinophils % 0.6; HCT 39.9 % (40.0-50.0); HGB 12.6 g/dL (13.5-17.5); Immature Grans % 0.3; Lymphocytes % 4.7; MCH 29.7 pg (27.0-33.0); MCHC 31.6 % (32.0-36.0); MCV 94.1 fL (80-95); MPV 11.1 fL (8.0-11.0); Monocytes % 8.6; Neutrophils % 85.3; Nucleated RBC 0 %; Platelet Count 123 10^3/uL (130-400); RBC 4.24 10^6/uL (4.36-5.78); RDW 13.7 % (11.8-14.1); RDW-SD 47.5 fL; WBC 6.41 10^3/uL (4.4-10.8)
[2021-05-06 11:50] LABS: ALT 28 U/L (16-63); AST 25 U/L (15-37); Albumin 4.4 g/dL (3.4-5.0); Alkaline Phosphatase 65 U/L (46-116); Anion Gap 7.6 mmol/L (3-11); BUN 27 mg/dL (7-18); Bilirubin, Total 1.4 mg/dL (0.2-1.0); CO2 31.4 mmol/L (21.0-32.0); CREATININE 1.2 mg/dL (0.70-1.30); Calcium 8.9 mg/dL (8.5-10.1); Chloride 104 mmol/L (98-107); Estimated GFR 58.11 (mL/min/1.73m2); Glucose 98 mg/dL (74-106); Sodium 143 mmol/L (136-145)
[2021-05-10 01:43] LABS: Testosterone, Total <7.0 ng/dL (240-950)
== END 2021-05-06 03:39 | disposition home or self-care (01) ==
LOC: LBO 03:38
PROVIDERS: PCP Internal Medicine; Visit Provider Internal Medicine
DX: C61 Malignant neoplasm of prostate (principal); C79.51 Secondary malignant neoplasm of bone; R97.20 Elevated prostate specific antigen [PSA]; Z79.899 Other long term (current) drug therapy; Z46.6 Encounter for fitting and adjustment of urinary device
CPT/HCPCS: 36415; 51702; 80053; 84153; 84403; 96402; 85025; J9217

== ENCOUNTER 2021-06-02 07:35 | Inpatient (IN) | payer MEDICARE, SELFPAY ==
[2021-06-02] VITALS (116 sets, daily range): BP systolic 85–140; BP diastolic 51–99; PULSE 62–159; RESP 14–30; TEMP 36.2–36.5; O2SAT 92–100
--- NOTE | 2021-06-02 07:15 | RT.EKG_ITS ---
APPROVED REPORT Exam: Resting ECG Reason for Exam: rapid heart rate Patient Location: E HR:81 bpm ECG Measurements Heart Rate 81 AXIS IN [id number] P [id number] QRSd 127 QRS 86 QT 401 T -49 QTc 465 Conclusion Atrial fibrillation...? atrial activity Nonspecific intraventricular conduction delay...QRSd >115mS, not LBBB/RBBB Repol abnrm suggests ischemia, diffuse leads...ST-T neg, ant/lat/inf atrial fibrillation at 81, IVCD, normal axis, diffuse ST changes, no STEMI
--- NOTE | 2021-06-02 08:00 | RT.EKG_ITS ---
APPROVED REPORT Exam: Resting ECG Reason for Exam: palpitations Patient Location: E HR:82 bpm ECG Measurements Heart Rate 82 AXIS CO [id number] P [id number] QRSd 122 QRS 87 QT 388 T -48 QTc 454 Conclusion Atrial fibrillation...? atrial activity Ventricular tachycardia, unsustained...sequence of 3 or more V complexes Nonspecific intraventricular conduction delay...QRSd >115mS, not LBBB/RBBB Repol abnrm suggests ischemia, diffuse leads...ST-T neg, ant/lat/inf 4 beats likely V. tach with conversion to atrial fibrillation at 82, atrial fibrillation with normal axis, no STEMI
[2021-06-02 08:07] LABS: Abs Immature Grans 0.01 10^3/uL (0.0-0.06); Absolute Basophil Count 0.02 10^3/uL (0.0-0.2); Absolute Eosinophil Count 0.08 10^3/uL (0.0-0.7); Absolute Lymphocyte Count 0.42 10^3/uL (1.2-3.4); Absolute Monocyte Count 0.23 10^3/uL (0.1-0.8); Absolute Neutrophil Count 3.16 10^3/uL (1.2-6.7); Basophils % 0.5; HCT 37.6 % (40.0-50.0); HGB 12.3 g/dL (13.5-17.5); Immature Grans % 0.3; Lymphocytes % 10.7; MCH 30.4 pg (27.0-33.0); MCHC 32.7 % (32.0-36.0); MCV 92.8 fL (80-95); MPV 12.3 fL (8.0-11.0); Monocytes % 5.9; Neutrophils % 80.6; Nucleated RBC 0 %; RBC 4.05 10^6/uL (4.36-5.78); RDW 13.5 % (11.8-14.1); WBC 3.92 10^3/uL (4.4-10.8)
--- NOTE | 2021-06-02 08:10 | DI.RAD_ITS ---
Exam(s) XR PORTABLE CHEST AP EXAM: XR PORTABLE CHEST AP CLINICAL HISTORY: palpitations TECHNIQUE: 2D digital imaging was performed. COMPARISON: CT CT CHEST WO from 03/20/[address] CHEST WO from 03/20/2021 FINDINGS: Exam is limited by semi-upright positioning and multiple monitor leads. The heart is grossly enlarge d. A valve prosthesis and sternal wires as well as mediastinal clips are noted. Visualized portions of the lungs appear clear. The lungs are not well inflated. IMPRESSION: Cardiomegaly. No acute pulmonary findings. DATA REPOSITORY: RADIATION DOSE DELIVERED:
--- NOTE | 2021-06-02 08:15 | RT.EKG_ITS ---
APPROVED REPORT Exam: Resting ECG Reason for Exam: palpitations Patient Location: E HR:148 bpm ECG Measurements Heart Rate 148 AXIS LA 148 P 0 QRSd 156 QRS -46 QT 360 T 131 QTc 566 Conclusion Extreme tachycardia with wide complex, no further rhythm analysis attempted likely ventricular tachycardia at 148
[2021-06-02 08:25] LABS: INR 1.5 (0.9-1.1); PTT Activated 34.8 sec (21.0-27.5)
[2021-06-02 08:27] LABS: ALT 25 U/L (16-63); AST 29 U/L (15-37); Albumin 3.8 g/dL (3.4-5.0); Alkaline Phosphatase 61 U/L (46-116); Anion Gap 6.5 mmol/L (3-11); BUN 31 mg/dL (7-18); Bilirubin, Total 1.2 mg/dL (0.2-1.0); CO2 29.5 mmol/L (21.0-32.0); CREATININE 1.2 mg/dL (0.70-1.30); Calcium 8.7 mg/dL (8.5-10.1); Chloride 105 mmol/L (98-107); Estimated GFR 58.11 (mL/min/1.73m2); Glucose 138 mg/dL (74-106); Magnesium 2.3 mg/dL (1.8-2.4); NT-proBNP 1150 pg/mL (<300); Potassium 3.7 mmol/L (3.5-5.1); Sodium 141 mmol/L (136-145); TSH (W/Ref FT4) 1.54 uIU/mL (0.36-3.74); Total Protein 6.6 g/dL (6.4-8.2); Troponin I < 0.05 ng/mL (<0.06)
[2021-06-02 08:34] LABS: D-Dimer 352 ng/mlFEU (<500)
[2021-06-02 08:41] LABS: Platelet Count 97 10^3/uL (130-400)
[2021-06-02] MEDS: Normal Saline 1,000 ML 30 ML IV (08:45)
--- NOTE | 2021-06-02 08:50 | W.ED.GENAD ---
Discharge Plan Disposition Patient Disposition: [facility] INPATIENT Condition: Critical Discharge Details Clinical Impression: Ventricular tachycardia Admit Date/Time: 06/02/21 11:45 Admit Provider: Aly Goins Attending Provider: Aly Goins Primary Care Provider: Rudolph Ryan ED Provider: Barby Greer Discharge Data Discharge Date/Time-TO BE ENTERED AT DEPARTURE: 06/02/21 12:49 Medical Decision Making Jonathan Garcia is an 80 y/o man with h/o afib, prostate ca, CABG in the past, mitral valve repair in the past, CHF who presented to the ED with palpitations, found to be in v-tach by EMS, converted to afib rate 80s en route. Concern for metabolic/lyte derangement, acute coronary syndrome, pulmonary embolism, other, Exam/hx at this time not c/w sepsis, acute aortic process. EKG obtained, non-diagnostic. Plan for screening labs, telemetry, CXR, amiodarone gtt, will monitor and reassess. Pt developed vtach 140s with several (5 or so) beats of afib rate approx 80 intermittently at least once per minute. Pt reports mild sensation of palpitations, denies any other symptoms. BP unchanged. Discussed Pt with Dr. Deng of cardiology, who has reviewed EKGs, likely V. tach versus less likely SVT with aberrancy. Agrees synchronized cadioversion less likely to be successful as Pt converts atriual fib with rate less than 100 spontaneously every minute or so. Recommended continuing amiodarone infusion as long as patient remains stable, recommend procainamide if need to switch agent. She recommends consult with [facility] cardiology. Patient remains asymptomatic other than sensation of palpitations, denies chest pain, shortness of breath, lightheadedness. Blood pressure 1 teens to 120s systolic, rate in the 140s. 0850 [facility] transfer center contacted and EKGs faxed Labs reviewed: dimer 352, potassium 3.7, mag 2.3, trop 0.09. 0940 called back by Angela Cabral of cardiology, recommends give postassium to increase over 4.0, will speak to EP front desk attendant and call back, no further recommendation. 10:14 called back by cardiology ARCHITECTURAL ENGINEER, recommend lidocaine addition if necessary, no beds available for transfer 10:18 called [facility] transfer center, awaiting callback Pt converted to afib. No further symptoms. Continuing amio gtt. 1041: accepted ED by Dr. Christie after discussion with cardiology, recommends continue amio gtt 10:52 discussed plan for transfer with Pt, he is discussing whether or not he wants to be transferred with family. I had a lengthy discussion with Pt, his son, and his regarding limited ability to care for complex cardiac issues at [facility], including no in house front desk attendant and no photographic laboratory technician. Discussed that remaining at [facility] as opposed to [facility] could potentially result in or permanent disabilty. Pt and his family verbalize understanding. Pt and his family state that he prefers to stay at [facility] at this point. Pt states that he is DNR, does not know whether he would want a cath or other invasive interventions, and at this point does not feel like being so far from home. Reiterates understanding of risks. Plan for admission to [facility]. Medical Records Medical records reviewed: Yes I reviewed the patient's medical records. Imaging Data Radiologic Study: Attestation: I personally reviewed and interpreted this imaging study as follows: Radiologist's impression: EXAM: XR PORTABLE CHEST AP CLINICAL HISTORY: palpitations TECHNIQUE: 2D digital imaging was performed. COMPARISON: CT CT CHEST WO from 03/20/[address] CHEST WO from 03/20/2021 FINDINGS: Exam is limited by semi-upright positioning and multiple monitor leads. The heart is grossly enlarged. A valve prosthesis and sternal wires as well as mediastinal clips are noted. Visualized portions of the lungs appear clear. The lungs are not well inflated. IMPRESSION: Cardiomegaly. No acute pulmonary findings. Lab Data Lab results reviewed: Yes I reviewed the patient's lab results. ECG Data Attestation: I personally reviewed and interpreted this ECG (s) as follows: Interpretation: EKG 7: 40 shows atrial fibrillation at 81, IVCD, normal axis, diffuse ST changes, no STEMI EKG 8: 03 shows 4 beats likely V. tach with conversion to atrial fibrillation at 82, atrial fibrillation with normal axis, no STEMI HPI General Mode of arrival: EMS. Date/Time Provider Initiated Documentation: 06/02/21 07:51. Limitations to Documentation: no limitations. Information obtained by: patient, family, RN notes reviewed and old records reviewed. HPI Narrative: Jonathan Garcia is an 80 y/o man with h/o CAD, prostate cancer with bone mets CHF, HLD, atrial fibrillation presenting to the ED with palpitations. Pt reports that he felt his heart racing and called EMS. Pt reports that this happened once prior last week, lasted for 20-30 min and resolved spontaneously, did not seek medical care. He denies any other symptoms than sensation of heart racing: no chest pain, no SOB, no orthopnea, no other pain, no lightheadedness or syncope. Pt also denies fever, vomiting, diarrhea, rash, numbness, weakness. No recent med changes. Has been eating and drinking as usual, though decreased appetite over past few weeks. Per EMS, Pt found to be in v-tach. Amiodarone bolus 150mg given, then several minutes later repeat 150 bolus given, which was d/dia in ED upon arrival with approx 100-125mg of second bolus administered. Pt in afib rate 80s upon arrival. Related Data Home Medications Medication Instructions Recorded Confirmed aspirin [Aspir-81] 81 mg PO .QOD 12/18/15 06/02/21 atorvastatin [Lipitor] 40 mg PO HS 12/20/15 06/02/21 losartan 50 mg PO DAILY 06/12/16 06/02/21 diltiazem HCl 180 mg PO DAILY #30 cap 08/04/17 06/02/21 furosemide 40 mg PO DAILY #30 tab-cap 08/04/17 06/02/21 famotidine 20 mg tablet 20 mg PO BID 07/02/20 06/02/21 rivaroxaban 15 mg tablet 15 mg PO DAILY 07/02/20 06/02/21 tamsulosin 0.4 mg capsule 0.8 mg PO DAILY cap 09/25/20 06/02/21 abiraterone 250 mg tablet 1,000 mg PO DAILY tab 04/08/21 06/02/21 prednisone 5 mg tablet 5 mg PO DAILY 04/08/21 06/02/21 Previous Rx's Medication Instructions Recorded diltiazem HCl 180 mg PO DAILY #30 cap 08/04/17 furosemide 40 mg PO DAILY #30 tab-cap 08/04/17 Allergies Allergy/AdvReac Type Severity Reaction Status Date / Time lisinopril AdvReac Intermediate cough Verified 06/02/21 07:44 spironolactone AdvReac Hyperkalemi Verified 06/02/21 07:44 a General Stated Complaint: Palpitatns EUSEBIO: 2 Review of Systems Narrative: Constitutional: denies fevers Eyes: denies eye pain ENT: denies ear pain, dental pain, sore throat Cardiovascular: denies chest pain, edema, reports palpitations Respiratory: denies SOB, cough GI: denies abdominal pain, vomiting, diarrhea : denies flank pain MSK: denies back pain, neck pain, arthralgias, myalgias Skin: denies rash Neuro: denies headaches, numbness, weakness [facility] Active Problem List Thrombocytopenia (Chronic) Anemia (Chronic) NSTEMI (non-ST elevated myocardial infarction) (Acute) Coronary artery disease (Chronic) Cirrhosis (Acute) Ventricular tachycardia (Chronic) Bone metastasis (Acute) Prostate cancer (Chronic) Incarcerated right inguinal hernia (Acute) Tricuspid regurgitation (Acute) Acute urinary retention (Acute) Urinary retention due to benign prostatic hyperplasia (Acute) Elevated PSA, greater than or equal to 20 ng/ml (Acute) BPH (benign prostatic hyperplasia) (Chronic) Paroxysmal atrial fibrillation (Chronic) Medical History A-fib Anemia Anticoagulation adequate Ascites Bladder outlet obstruction Cardiorenal syndrome Cholelithiasis Congestive heart failure Cor pulmonale Corns and callus GERD (gastroesophageal reflux disease) History of alcohol abuse Hx of congestive heart failure Hx of myocardial infarction 2007 Hyperlipidemia Inguinal hernia Jaundice Lateral femoral cutaneous entrapment syndrome Myocardial infarct Nail disorder Nocturnal leg cramps Overweight Pain, joint, knee, left Rectal bleeding Surgical History Hx of CABG Hx of cataract surgery Hx of colonoscopy Hx of inguinal hernia surgery S/P CABG (coronary artery bypass graft) 2009 Social History Smoking/Tobacco Use Status: Former Tobacco Use Quit Date: 07/12/89 Tobacco: How many years used: 15 Smoking risk assessment performed?: Yes Alcohol Intake: former Drug use: Never Substance use type: does not use Do you feel safe at home: Yes Do you feel safe in your relationship?: Yes Exam Narrative Exam Narrative: Constitutional: well and [id number], pleasant, conversing normally HENT: head atraumatic/normocephalic/normal inspection, mucous membranes moist Eyes: conjunctiva normal, sclera normal, pupils 3mm b/l Neck: no stridor, normal ROM, trachea midline Chest: normal inspection Resp: normal work of breathing, LCTAB Cardio: normal rate, irregularly irregular rhythm GI: abdomen soft, non-tender, non-distended Back: normal inspection, no rash Skin: warm, dry, normal color, no rash Neuro: alert, not altered, grossly non-focal, normal tone Ext: no edema, no posterior calf TTP Psych: normal mood, normal affect, normal behavior Course Vital Signs Vital signs: Vital Signs Respiratory Rate 26 H 06/02/21 07:38 Pulse Oximetry 99 06/02/21 07:38 Temperature 36.2 C L 06/02/21 07:39 Temperature Source Skin 06/02/21 07:39 Pulse 82 06/02/21 07:47 Pulse 82 06/02/21 07:50 Respiratory Rate 22 06/02/21 07:50 Respiratory Effort Non-Labored 06/02/21 07:39 Blood Pressure 134/67 06/02/21 07:47 Blood Pressure Mean 84 06/02/21 07:47 Blood Pressure Position Supine 06/02/21 07:39 Pulse Oximetry 98 06/02/21 07:50 Oxygen Delivery Method Room Air 06/02/21 07:39 Oxygen Flow Rate 0 06/02/21 07:39 Pain Level 0 06/02/21 07:39 Lab/Test Results Lab/Test Results: Laboratory Tests Range/Units 06/02/21 06/02/21 06/02/21 07:44 07:44 07:44 WBC (4.4-10.8) 10^3/uL 3.92 L RBC (4.36-5.78) 10^6/uL 4.05 L Hgb (13.5-17.5) g/dL 12.3 L Hct (40.0-50.0) % 37.6 L MCV (80-95) fL 92.8 MCH (27.0-33.0) pg 30.4 MCHC (32.0-36.0) % 32.7 RDW (11.8-14.1) % 13.5 Plt Count (130-400) 10^3/uL 97 L MPV (8.0-11.0) fL 12.3 H Immature Gran % 0.3 Neutrophils % 80.6 Lymphocytes % 10.7 Monocytes % 5.9 Eosinophils % 2.0 Basophils % 0.5 Nucleated RBC % % 0 Absolute Neutrophils (1.2-6.7) 10^3/uL 3.16 Absolute Lymphocytes (1.2-3.4) 10^3/uL 0.42 L Absolute Monocytes (0.1-0.8) 10^3/uL 0.23 Absolute Eosinophils (0.0-0.7) 10^3/uL 0.08 Absolute Basophils (0.0-0.2) 10^3/uL 0.02 PT (9.3-11.0) sec 15.0 H INR (0.9-1.1) 1.5 H APTT (21.0-27.5) sec 34.8 H D-Dimer (<500) ng/mlFEU 352 Sodium (136-145) mmol/L 141 Potassium (3.5-5.1) mmol/L 3.7 Chloride (98-107) mmol/L 105 Carbon Dioxide (21.0-32.0) mmol/L 29.5 Anion Gap (3-11) mmol/L 6.5 BUN (7-18) mg/dL 31 H Creatinine (0.70-1.30) mg/dL 1.2 Estimated GFR/1.73 m2 (mL/min/1.73m2) 58.11 Glucose (74-106) mg/dL 138 H Calcium (8.5-10.1) mg/dL 8.7 Magnesium (1.8-2.4) mg/dL 2.3 Total Bilirubin (0.2-1.0) mg/dL 1.2 H AST (15-37) U/L 29 ALT (16-63) U/L 25 Alkaline Phosphatase (46-116) U/L 61 Troponin I (<0.06) ng/mL < 0.05 NT-Pro-B Natriuret Pep (<300) pg/mL 1150 H Total Protein (6.4-8.2) g/dL 6.6 Albumin (3.4-5.0) g/dL 3.8 TSH (0.36-3.74) uIU/mL 1.54 Critical Care Time Critical Care Time Critical Care Time: Yes Total Critical Care Time: 45 Attestation: I have spent greater than 45 min of critical care time with this critically ill patient, including frequent reassessments, discussions with consultants and family, and management of infusions.
[2021-06-02] MEDS: POTASSIUM CHLORIDE 20 MEQ/100 ML BAG 50 MEQ IVPB (09:50)
[2021-06-02 11:24] LABS: Troponin I 0.09 ng/mL (<0.06)
[2021-06-02 11:34] LABS: Source Nasal/Nares
[2021-06-02 14:32] LABS: COVID-19 PCR Negative (Negative)
--- NOTE | 2021-06-02 14:54 | NUR.NOTE ---
[facility] Appointment with Leif Gil is reported for 06/09/2021 at 08:30 AM. Patient informed.
--- NOTE | 2021-06-02 16:31 | HPE_ITS ---
Date of service: 06/02/21 Time of Service: 16:32 Assessment and Plan Assessment and plan (1) Prostate cancer: Status: Chronic Assessment and plan: He takes an anti-androgen medication, abiraterone. No mention of cardiac arrhythmias noted in the medication PI. Will d/w his oncology group to see if this should be continued at this time. (2) Paroxysmal atrial fibrillation: Status: Chronic Assessment and plan: H/O PAF Presented with V-tach and now in afib, rate controlled, on amiodarone drip. Cont telemetry monitoring. Cardiology consulted. K+ replacement to keep > 4.0. Mg normal. (3) Ventricular tachycardia: Status: Chronic Assessment and plan: Presented with V-tach. Amiodarone bolus given and then drip initiated. Converted to Afib. Cardiology suggests lidocaine if reverts back to V-tach. (4) Coronary artery disease: Status: Chronic Assessment and plan: H/O NH and CABG Troponin initially neg, then 0.09. Third troponin pending. No c/o chest pain, SOA, diaphoresis. History of Present Illness History of Present Illness Chief Complaint: Palpitations, racing heart. Narrative: This is an 80 yo male with a PMH of CAD/NH in 2007, CABG 2009, PAF, prostate cancer with bone mets. He presented with c/o racing heart/palpitations that began in the AM of presentation. He had taken his chemotherapeutic agent abiraterone at 6 AM and went back to lay down. His heart then began to race soon after lying down. He had a similar, short-lived (appx 5 min) episode of a racing heart 2 weeks ago and then again on the Wednesday before this admission (lasting appx 20mins). No CP during any of the episodes. No SOA, dizziness/lightheadedness. He received a 150mg amiodarone bolus en route per EMS and then appx 100ml of another bolus. In the ED his EKG showed V-tach vs SVT with aberrancy. He was noted to converted periodically to short runs of afib. An amiodarone infusion was initiated per recommendation of Dr Deng, cardiology. [facility] [place]. No bed availability. Suggestion made to give potassium to keep above 4.0. Also suggested was lidocaine if amiodarone not effective. He ultimately remained in atrial fibrillation with a rate consistently in the 80's. [facility] did accept patient, but he declined transfer. COVID negative. WBC count 3.92, Hgb 12.3. INR 1.5. K 3.7 (IV K+ infused). BUN 31. Creatinine 1.2. Glucose 138. Review of Systems All systems reviewed & are unremarkable except as noted in HPI and below PFSH Active Problem List Bone metastasis (Acute) Prostate cancer (Chronic) Incarcerated right inguinal hernia (Acute) Tricuspid regurgitation (Acute) Acute urinary retention (Acute) Urinary retention due to benign prostatic hyperplasia (Acute) Elevated PSA, greater than or equal to 20 ng/ml (Acute) BPH (benign prostatic hyperplasia) (Chronic) Paroxysmal atrial fibrillation (Chronic) Medical History A-fib Anemia Anticoagulation adequate Ascites Bladder outlet obstruction Cardiorenal syndrome Cholelithiasis Cirrhosis Congestive heart failure Cor pulmonale Corns and callus GERD (gastroesophageal reflux disease) History of alcohol abuse Hx of congestive heart failure Hx of myocardial infarction 2007 Hyperlipidemia Inguinal hernia Jaundice Lateral femoral cutaneous entrapment syndrome Myocardial infarct Nail disorder Nocturnal leg cramps Overweight Pain, joint, knee, left Rectal bleeding Surgical History Hx of CABG Hx of cataract surgery Hx of colonoscopy Hx of inguinal hernia surgery S/P CABG (coronary artery bypass graft) 2009 Social History Smoking/Tobacco Use Status: Former Tobacco Use Quit Date: 07/12/89 Tobacco: How many years used: 15 Smoking risk assessment performed?: Yes Alcohol Intake: former Drug use: Never Substance use type: does not use Do you feel safe at home: Yes Do you feel safe in your relationship?: Yes Meds Allergies and Home Medications Allergies Allergy/AdvReac Type Severity Reaction Status Date / Time lisinopril AdvReac Intermediate cough Verified 06/02/21 07:44 spironolactone AdvReac Hyperkalemi Verified 06/02/21 07:44 a Home Medications Medication Instructions Recorded Confirmed Type aspirin [Aspir-81] 81 mg PO .QOD 12/18/15 06/02/21 History atorvastatin [Lipitor] 40 mg PO HS 12/20/15 06/02/21 History losartan 50 mg PO DAILY 06/12/16 06/02/21 History diltiazem HCl 180 mg PO DAILY #30 cap 08/04/17 06/02/21 Rx furosemide 40 mg PO DAILY #30 tab-cap 08/04/17 06/02/21 Rx famotidine 20 mg tablet 20 mg PO BID 07/02/20 06/02/21 History rivaroxaban 15 mg tablet 15 mg PO DAILY 07/02/20 06/02/21 History tamsulosin 0.4 mg capsule 0.8 mg PO DAILY cap 09/25/20 06/02/21 History abiraterone 250 mg tablet 1,000 mg PO DAILY tab 04/08/21 06/02/21 History prednisone 5 mg tablet 5 mg PO DAILY 04/08/21 06/02/21 History Exam Const General: cooperative and no acute distress Nutritional Appearance: average body habitus Orientation: alert and oriented x3 HENMT Head: normocephalic and atraumatic Ears: hearing grossly normal bilaterally Neck Neck: full ROM and no JVD Resp Effort & Inspection: normal respiratory effort Auscultation: clear to auscultation bilaterally Cardio Rhythm: abnormal rhythm irregularly irregular GI Palpation: soft and nontender Auscultation: normal bowel sounds Skin General skin exam: no rashes or lesions noted Neuro General: no focal motor deficits Cognition: normal cognition Speech: speech normal Extrem General: no calf tenderness and edema Laterality: bilateral (tr) Psych Speech and Movement: speech and movement normal Affect: normal affect Results Labs Result diagrams: 06/02/21 07:44 06/02/21 07:44 Labs: Laboratory Results - last 24 hr 06/02/21 06/02/21 06/02/21 07:44 07:44 07:44 WBC 3.92 L RBC 4.05 L Hgb 12.3 L Hct 37.6 L MCV 92.8 MCH 30.4 MCHC 32.7 RDW 13.5 Plt Count 97 L MPV 12.3 H Immature Gran % 0.3 Neutrophils % 80.6 Lymphocytes % 10.7 Monocytes % 5.9 Eosinophils % 2.0 Basophils % 0.5 Nucleated RBC % 0 Absolute Neutrophils 3.16 Absolute Lymphocytes 0.42 L Absolute Monocytes 0.23 Absolute Eosinophils 0.08 Absolute Basophils 0.02 PT 15.0 H INR 1.5 H APTT 34.8 H D-Dimer 352 Sodium 141 Potassium 3.7 Chloride 105 Carbon Dioxide 29.5 Anion Gap 6.5 BUN 31 H Creatinine 1.2 Estimated GFR/1.73 m2 58.11 Glucose 138 H Calcium 8.7 Magnesium 2.3 Total Bilirubin 1.2 H AST 29 ALT 25 Alkaline Phosphatase 61 Troponin I < 0.05 NT-Pro-B Natriuret Pep 1150 H Total Protein 6.6 Albumin 3.8 TSH 1.54 COVID-19 Source SARS-CoV-2 (PCR) 06/02/21 06/02/21 10:45 11:15 WBC RBC Hgb Hct MCV MCH MCHC RDW Plt Count MPV Immature Gran % Neutrophils % Lymphocytes % Monocytes % Eosinophils % Basophils % Nucleated RBC % Absolute Neutrophils Absolute Lymphocytes Absolute Monocytes Absolute Eosinophils Absolute Basophils PT INR APTT D-Dimer Sodium Potassium Chloride Carbon Dioxide Anion Gap BUN Creatinine Estimated GFR/1.73 m2 Glucose Calcium Magnesium Total Bilirubin AST ALT Alkaline Phosphatase Troponin I 0.09 H* NT-Pro-B Natriuret Pep Total Protein Albumin TSH COVID-19 Source Nasal/Nares SARS-CoV-2 (PCR) Negative Last Vital Signs Temp 36.2 C L 06/02/21 13:00 Pulse 88 06/02/21 14:01 Resp 21 06/02/21 14:30 BP 136/99 H 06/02/21 14:01 Pulse Ox 99 06/02/21 14:30
[2021-06-02] MEDS: Potassium Chloride 20 MEQ TABCR 40 MEQ PO (17:03)
[2021-06-02 18:21] LABS: Troponin I 0.48 ng/mL (<0.06)
[2021-06-02] MEDS: Normal Saline Flush 10 ML SYR IVP (19:54)
[2021-06-02] MEDS: Atorvastatin 20 MG TAB PO (19:54)
[2021-06-03] VITALS (123 sets, daily range): BP systolic 100–148; BP diastolic 60–96; PULSE 67–126; RESP 12–33; TEMP 36.2–36.6; O2SAT 93–98
--- NOTE | 2021-06-03 | DI.US_ITS ---
APPROVED REPORT EXAM: Comprehensive 2D, Doppler, and color-flow Echocardiogram Patient Location: In-Patient Room/Bed: [id number] Packager Machine: Therese Cervantes RDCS (AE) Indications: V Tach, Known valvular disease Other Information Study Quality: Fair. Technically limited study due to body habitus, inability to position patient. Conclusion Mildly dilated left ventricle. Normal left ventricular wall thickness. Estimated ejection fraction is 40 to 45%. There is global hypokinesis Right ventricle is moderately to severely dilated. It is mildly hypocontractile Both atria are severely dilated Trileaflet sclerotic aortic valve with mild regurgitation. There is no aortic stenosis The patient is status post mitral valve repair with an annuloplasty ring. Mitral leaflets appear nor mal. There is mild mitral regurgitation Normal tricuspid valve with moderate to severe regurgitation. Estimated right ventricular systolic p ressure is 39.6 mmHg Mildly dilated ascending aorta measuring 3.51 cm Wall motion Left Ventricle Left ventricle is mildly dilated. Left ventricular systolic function is moderately decreased. There i s normal left ventricular wall thickness. There is global hypokinesis of the left ventricle. There is no ventricular septal defect visualized. LVEF is 42%. Right Ventricle Right ventricle is moderate to severely dilated. Right ventricle is mildly hypokinetic. The RVSP is 3 9.6 mmHg. Atria Left atrium is severely dilated. Right atrium is severely dilated. The interatrial septum is intact w ith no evidence for an atrial septal defect. Aortic Valve The Aortic valve is sclerotic. Aortic valve is trileaflet. There is no aortic valvular stenosis. Mild aortic regurgitation. Mitral Valve Mitral annuloplasty changes are present. No evidence of mitral valve stenosis. Mild mitral regurgitat ion. Mitral regurgitation jet is eccentrically directed. Tricuspid Valve The tricuspid valve is normal in structure. There is no tricuspid valve stenosis. Moderate to severe tricuspid regurgitation. Pulmonic Valve The pulmonary valve is normal in structure. There is no pulmonic valvular stenosis. Trace to mild pul rainer regurgitation. Great Vessels The aortic root is normal in size. The ascending aorta is mildly dilated. Aortic arch is normal in ca liber. The IVC collapses <50% with inspiration. Pericardium There is no pericardial effusion. 2D Dimensions IVSD d PLAX 0.99 cm M: 0.6-1.2 LV Vol A2C d MOD 135.4 mL LVPW d PLAX 1.03 cm M: 0.6 - 1.2 LV Vol A4C d MOD 180.8 mL LVID d PLAX 5.98 cm M: 4.2 - 5.8 LA vol/ BSA A2C s A-L 94.8 mL/m2 LVDs 4.65 cm M: 2.5 - 4.0 LA vol/ BSA A4C s A-L 118.0 mL/m2 Ao Root d 3.53 cm M: 3.1 - 3.7 LA Vol/ BSA Biplane s A-L 116.3 mL/m2 RA Area A4C 40.76 cm2 LA Area A4C s MOD 49.61 cm2 RA Vol/ BSA A4C s A-L 89.4 mL/m2 LA Area A2C s MOD 40.44 cm2 Ao Asc Diam d 3.51 cm M: 2.6 - 3.4 LV EF A4C MOD 42.3 % LV EF Teichholz 43.7 % LV EF A2C MOD 43.3 % LVEF ([employer]) 43.51 % M: 52 - 72 LV EF Biplane MOD 43.5 % LV Volume 122.83 mL M: 62 - 150 SV 70.92 mL LV Volume Index 62.35 mL/m2 M: 34 - 74 SV Index 35.96 mL/m2 LV Vol Biplane MOD 163.0 mL FS 21.95 % M-Mode TAPSE 1.40 cm (M/F) >1.7 LV Diastology MV E' medial 0.082 (>0.07 m/s) MV E Vmax 1.50 (0.4-1.3 m/s) LV E/e MED 18.25 (<14) MV E' lateral 0.096 (>0.1 m/s) LV E/e LAT 15.60 (<14) MV E/E' medial 18.27 MV E/E' lateral 15.64 Aortic Valve LVOT Area 3.66 cm2 AoV Area Vmax 2.60 cm2 LVOT Vmax 0.75 m/s AoV Area/ BSA (Vmax) 1.32 cm2/m2 LVOT Mean Cruzito. 0.50 m/s ELINA Mean Cruz[place]. 2.24 cm2 LVOT Peak Grad 2.2 mmHg ELINA Mean [place]. Index 1.14 cm2/m2 LVOT Mean Grad 1.1 mmHg AR DT 1298 msec LVOT VTI 0.138 m AR PHT 376 msec LVOT Diam s 2.15 cm AoV Vmax 1.05 m/s Velocity Ratio 0.71 AoV Mean [place]. 0.81 m/s AoV Peak Grad 4.4 mmHg LVOT SV 50.63 mL AoV Mean Grad 2.8 mmHg AoV VTI 0.196 m AoV Area VTI 2.59 cm2 AoV Area/ BSA (VTI) 1.31 cm/m2 Mitral Valve MV DT 306 (160-240 msec) MR Vmax 5.16 m/s MV PHT 89 msec MR VTI 1.514 m MV Area PHT 2.48 cm2 MR Peak Grad 106.4 mmHg MV VTI 0.432 m MR Mean Grad 61.0 mmHg MV VTI Annulus 0.459 m MV Area VTI 1.25 (4.0-6.0 cm2) Pulmonary Valve PV Vmax 0.67 (0.5-1.5 m/s) RVOT Peak Gr. 0.82 mmHg PV Peak Grad 1.8 mmHg RVOT Mean Gr. 0.40 mmHg PV Mean Grad 1.0 mmHg RVOT VTI 0.081 m PV VTI 0.122 m RVOT Vmax 0.45 m/s Tricuspid Valve TR Peak Grad 31.6 mmHg TR Vmax 2.81 m/s RA Pressure 8.00 mmHg RVSP (TR) 39.6 mmHg
[2021-06-03 06:22] LABS: Abs Immature Grans 0.01 10^3/uL (0.0-0.06); Absolute Basophil Count 0.02 10^3/uL (0.0-0.2); Absolute Eosinophil Count 0.12 10^3/uL (0.0-0.7); Absolute Lymphocyte Count 0.41 10^3/uL (1.2-3.4); Absolute Monocyte Count 0.42 10^3/uL (0.1-0.8); Basophils % 0.4; Eosinophils % 2.5; HCT 36.8 % (40.0-50.0); Immature Grans % 0.2; Lymphocytes % 8.4; MCH 30.1 pg (27.0-33.0); MCHC 32.6 % (32.0-36.0); MCV 92.2 fL (80-95); MPV 11.9 fL (8.0-11.0); Monocytes % 8.6; Neutrophils % 79.9; Nucleated RBC 0 %; Platelet Count 102 10^3/uL (130-400); RBC 3.99 10^6/uL (4.36-5.78); RDW 13.6 % (11.8-14.1); RDW-SD 46.5 fL; WBC 4.88 10^3/uL (4.4-10.8)
[2021-06-03 06:35] LABS: ALT 35 U/L (16-63); AST 41 U/L (15-37); Albumin 3.5 g/dL (3.4-5.0); Alkaline Phosphatase 61 U/L (46-116); Anion Gap 8.6 mmol/L (3-11); BUN 28 mg/dL (7-18); Bilirubin, Total 1.2 mg/dL (0.2-1.0); CO2 26.4 mmol/L (21.0-32.0); CREATININE 1.2 mg/dL (0.70-1.30); Calcium 8.5 mg/dL (8.5-10.1); Chloride 107 mmol/L (98-107); Estimated GFR 58.11 (mL/min/1.73m2); Glucose 114 mg/dL (74-106); Potassium 4.2 mmol/L (3.5-5.1); Sodium 142 mmol/L (136-145); Total Protein 6.2 g/dL (6.4-8.2)
[2021-06-03 06:36] LABS: Troponin I 0.39 ng/mL (<0.06)
[2021-06-03] MEDS: Tamsulosin 0.4 MG CAPCR 0.8 MG PO (08:13)
[2021-06-03] MEDS: Famotidine 20 MG TAB PO (08:13)
[2021-06-03] MEDS: Rivaroxaban 15 MG TABLET PO (08:13)
[2021-06-03] MEDS: predniSONE 5 MG TAB PO (08:13)
[2021-06-03] MEDS: Losartan 50 MG TAB PO (08:14)
[2021-06-03] MEDS: Furosemide 40 MG TAB PO (08:14)
[2021-06-03] MEDS: Aspirin E.C. 81 MG TABEC PO (08:14)
--- NOTE | 2021-06-03 08:28 | PUCC_ITS ---
General Date of Service Date of service: 06/03/21 Time of Service: 08:00 Reason for Admission to ICU: Ventricular Tachycardia Assessment and Plan Assessment and plan (1) Ventricular tachycardia: Status: Chronic (2) Prostate cancer: Status: Chronic (3) Tricuspid regurgitation: Status: Acute (4) NSTEMI (non-ST elevated myocardial infarction): Status: Acute (5) Anemia: Status: Chronic (6) Thrombocytopenia: Status: Chronic (7) Paroxysmal atrial fibrillation: Status: Chronic Assessment and plan: This is an 80 yo man with a significant cardiac history including atrial fibrillation and metastatic prostate cancer who is admitted for ventricular tachycardia. His rate is well maintained on amiodarone, however I do have concerns as he still flips into V.tach. He is asymptomatic during these episodes. He will be fully loaded up with amio this morning and we can likely put him on a PO regimen. I am concerned that he may need another anti-arrythmic agent given he was in and out of V.tach despite the amio infusion. His troponins peacked at 0.48 and given the arrythmia, chest pains and history of CAD this could be Type 1 NSTEMI. An alternative is that it is simply a reaction to the arrythmia. Ideally, he would have a fresh ischemic evaluation and possible VT ablation vs AICD placement but he has refused transfer. Recommendations Pulmonary: No acute concerns O2 sat goal >90% Cardiac: Ventricular Tachycardia - on 0.5 smiodarone infusion - put on metoprolol this morning in place of home diltiazem - cardiology to see patient - appreciate recs - electrolytes and TSH wnl Atrial Fibrillation - on home Xarelto - amiodarone and metoprolol as above NSTEMI, type I vs II - on ASA, atorvastatin - on Xarelto Renal: No acute concerns - K to 4.0, Mg to 2.0 I&O: Intake & Output 05/31/21 06/01/21 06/02/21 06/03/21 23:59 23:59 23:59 23:59 Intake Total 964.997 / 964.997 207.782 / 207.782 Output Total 625 / 625 450 / 450 Balance 339.997 / 339.997 -242.218 / -242.218 Weight 81.6 kg 79.2 kg Daily Fluid Goal:: Even GI Nutrition: Ok for PO unless plan for transfer for procedure Date of Last Bowel Movement: 06/02/21 Infectious Disease: No acute concerns Hematologic: Chronic Anemia - monitor Chronic Thrombocytopenia - monitor Neurologic: No acute concerns - delirium prevention - proper day/night schedule with lights on/off. Blinds on windows open Endocrine: No acute concerns Lines: PIV Prophylaxis: On Xarelto and famotidine Code Status: Resuscitation Status DNR Subjective Critical and life-threatening events over the past 24 hours: This is an 80 yo man with a significant cardiac history as well as metastatic prostate cancer (on androgen therapy) who was admitted to the ICU for Ventricular Tachycardia. He was started on an amiodarone infusion for this. [place] [facility] [place] to discuss his case who agreed with amiodarone and recommended the addition of lidocaine if the amiodarone was insufficient. It was recommended he transfer and was accepted by [facility], however the patient declined transfer. While on amiodarone he reverted to A. fib but still experiences some episodes of sustained and non-sustained V.tach (when examining the overnight telemetry). This morning he was on 0.5 amiodarone drip and was in A. fib with a controlled rate. On my initial examination, his and daughter were present for my asse ssment. Exam Const General: no acute distress Nutritional Appearance: well nourished [facility] Head: normocephalic Ears: external ears normal and no periauricular adenopathy General nose exam: nasal mucous membranes and turbinates normal Face and sinus: sinuses nontender Mouth: oropharynx normal and moist mucous membranes Teeth and gingiva: dentition normal Eyes General: appearance normal, both eyes and all related structures Pupils: PERRL Neck Neck: normal visual inspection and no lymphadenopathy Chest Chest: normal inspection of the chest Resp Effort & Inspection: normal respiratory effort Auscultation: clear to auscultation bilaterally, no rales, no rhonchi and no wh eezes Cardio Rate: regular rate Rhythm: abnormal rhythm Heart Sounds: S1 normal, S2 normal and no murmurs Pulses: radial pulses present bilaterally GI Inspection: normal to inspection Palpation: soft Skin General skin exam: no rashes or lesions noted Neuro General: patient alert, patient awake and patient oriented x3 Extrem General: no clubbing, no cyanosis and edema Laterality: bilateral Psych Mental Status: mental status grossly normal Affect: normal affect Attitude: cooperative Most Recent VS/Results Last Vital Signs Temp 36.4 C L 06/03/21 04:15 Pulse 73 06/03/21 08:02 Resp 16 06/03/21 08:20 BP 148/81 H 06/03/21 08:02 Pulse Ox 96 06/03/21 08:20 Laboratory Results - last 24 hr 06/02/21 06/02/21 06/02/21 07:44 07:44 07:44 WBC 3.92 L RBC 4.05 L Hgb 12.3 L Hct 37.6 L MCV 92.8 MCH 30.4 MCHC 32.7 RDW 13.5 Plt Count 97 L MPV 12.3 H Immature Gran % 0.3 Neutrophils % 80.6 Lymphocytes % 10.7 Monocytes % 5.9 Eosinophils % 2.0 Basophils % 0.5 Nucleated RBC % 0 Absolute Neutrophils 3.16 Absolute Lymphocytes 0.42 L Absolute Monocytes 0.23 Absolute Eosinophils 0.08 Absolute Basophils 0.02 PT 15.0 H INR 1.5 H APTT 34.8 H D-Dimer 352 Sodium 141 Potassium 3.7 Chloride 105 Carbon Dioxide 29.5 Anion Gap 6.5 BUN 31 H Creatinine 1.2 Estimated GFR/1.73 m2 58.11 Glucose 138 H Calcium 8.7 Magnesium 2.3 Total Bilirubin 1.2 H AST 29 ALT 25 Alkaline Phosphatase 61 Troponin I < 0.05 NT-Pro-B Natriuret Pep 1150 H Total Protein 6.6 Albumin 3.8 TSH 1.54 COVID-19 Source SARS-CoV-2 (PCR) 06/02/21 06/02/21 06/02/21 10:45 11:15 17:47 WBC RBC Hgb Hct MCV MCH MCHC RDW Plt Count MPV Immature Gran % Neutrophils % Lymphocytes % Monocytes % Eosinophils % Basophils % Nucleated RBC % Absolute Neutrophils Absolute Lymphocytes Absolute Monocytes Absolute Eosinophils Absolute Basophils PT INR APTT D-Dimer Sodium Potassium Chloride Carbon Dioxide Anion Gap BUN Creatinine Estimated GFR/1.73 m2 Glucose Calcium Magnesium Total Bilirubin AST ALT Alkaline Phosphatase Troponin I 0.09 H* 0.48 H* NT-Pro-B Natriuret Pep Total Protein Albumin TSH COVID-19 Source Nasal/Nares SARS-CoV-2 (PCR) Negative 06/03/21 06/03/21 06:10 06:10 WBC 4.88 RBC 3.99 L Hgb 12.0 L Hct 36.8 L MCV 92.2 MCH 30.1 MCHC 32.6 RDW 13.6 Plt Count 102 L MPV 11.9 H Immature Gran % 0.2 Neutrophils % 79.9 Lymphocytes % 8.4 Monocytes % 8.6 Eosinophils % 2.5 Basophils % 0.4 Nucleated RBC % 0 Absolute Neutrophils 3.90 Absolute Lymphocytes 0.41 L Absolute Monocytes 0.42 Absolute Eosinophils 0.12 Absolute Basophils 0.02 PT INR APTT D-Dimer Sodium 142 Potassium 4.2 Chloride 107 Carbon Dioxide 26.4 Anion Gap 8.6 BUN 28 H Creatinine 1.2 Estimated GFR/1.73 m2 58.11 Glucose 114 H Calcium 8.5 Magnesium Total Bilirubin 1.2 H AST 41 H ALT 35 Alkaline Phosphatase 61 Troponin I 0.39 H* NT-Pro-B Natriuret Pep Total Protein 6.2 L Albumin 3.5 TSH COVID-19 Source SARS-CoV-2 (PCR) Review of Systems All systems reviewed & are unremarkable except as noted in HPI and below Time spent with patient Time spent in Critical Care: 65 Time spent in Critical care included: Coordination of care, Chart review, Documenting critically ill care, Time at immediate bedside, Discussing critically ill care with other medical staff and Discussing care with family members
--- NOTE | 2021-06-03 08:40 | CCONE_ITS ---
Date of service: 06/03/21 Time of Service: 08:40 Assessment and Plan Assessment and plan (1) Coronary artery disease: Status: Chronic (2) Ventricular tachycardia: Status: Chronic (3) A-fib: (4) Hx of mitral valve repair: Status: None (5) Prostate cancer: Status: Chronic Assessment and plan: The patient presented with sustained monomorphic ventricular tachycardia which was overall quite well-tolerated. There was enzyme evidence of myocardial necrosis, likely due to demand ischemia. He should have an echocardiogram performed. Most recent echo in February showed preserved left ventricular systolic function, dilated and dysfunctional right ventricle similar to previous. It appears that plans are to transition him to oral amiodarone, and I would agree with loading 400 mg twice a day for 2 weeks, 200 mg twice a day for 2 weeks, then 200 mg daily. He should be considered for referral to electrophysiology depending on his preferences and on what the echocardiogram shows He should be continued on Xarelto for stroke prevention given his permanent atrial fibrillation Thank you for the opportunity to participate in the care of this patient History of Present Illness History of Present Illness Chief Complaint: Palpitations, ventricular tachycardia Narrative: Cardiac evaluation is requested in this 80-year-old man who presented to the hospital yesterday with sustained monomorphic ventricular tachycardia. The patient has a longstanding cardiac history which includes a myocardial infarction in 2007, followed by coronary artery bypass grafting (RIDER to the LAD, saphenous vein graft to the RCA) and mitral valve repair in 2009. Patient reports that from the cardiac standpoint he has done well subsequently. He did have evaluation in 2018 because of severe tricuspid regurgitation. This included cardiac catheterization which disclosed that his RIDER was occluded but that his [place] left anterior descending had only mild to moderate disease. The saphenous vein graft to the RCA was patent. At that time his left ventricular systolic function was normal. SAMIA showed moderate to severe eccentric mitral regurgitation, along with severe tricuspid regurgitation, moderate aortic sufficiency and no aortic stenosis. He has since been managed medically. He had an echocardiogram performed here in [place] recently which showed an ejection fraction of 52%. The right ventricle was dilated and dysfunctional. Both atria were severely dilated. Valvular heart disease was noted with mitral and tricuspid regurgitation, overall not significantly changed compared to previous In 2020 he was found to have metastatic prostate cancer after presenting with urinary retention. He is being followed by both urology and oncology. He has been treated with Abiraterone as part of androgen deprivation therapy Patient reports that about 2 weeks ago he had taken his for chemo pills and return to bed. He felt his heart beating rapidly and regularly for approximately 5 minutes. Last Wednesday he had a similar episode, which lasted ab out 20 minutes. The morning of presentation, he again had taken his four pills returned to bed, and his heart again began to beat rapidly. He could feel a pounding in his back. He did not have chest discomfort or difficulty breathing dizziness lightheadedness diaphoresis nausea or vomiting. The palpitations persisted and an ambulance was called. He was found to be in sustained monomorphic ventricular tachycardia with an adequate blood pressure. He was treated with amiodarone bolus and then drip. Consultation with [facility] disclosed no receiving beds. He reports that his family declined transfer to [facility] because they were concerned he was too unstable. Overnight he has been maintained on amiodarone with cessation of ventricular tachycardia, reversion to his chronic atrial fibrillation. EKG when not in VT shows atrial fibrillation, IVCD, vertical axis, nondiagnostic ST-T abnormalities EKG when in VT shows rate of approximately 150, monomorphic Serial cardiac enzymes have disclosed troponin elevation to approximately 0.39 Consults Consult date: 06/03/21 Requesting physician: Aly Goins Review of Systems Cardiovascular Cardiovascular: Reports as per HPI, Denies chest pain, Reports rapid heart rate, Reports irregular heart rhythm, Denies lightheadedness, Reports palpitations, Denies dyspnea and Denies dyspnea on exertion Respiratory Respiratory: Denies dyspnea and Denies dyspnea on exertion Endocrine Endocrine: Reports palpitations [facility] Active Problem List NSTEMI (non-ST elevated myocardial infarction) (Acute) Coronary artery disease (Chronic) Cirrhosis (Acute) Ventricular tachycardia (Chronic) Bone metastasis (Acute) Prostate cancer (Chronic) Incarcerated right inguinal hernia (Acute) Tricuspid regurgitation (Acute) Acute urinary retention (Acute) Urinary retention due to benign prostatic hyperplasia (Acute) Elevated PSA, greater than or equal to 20 ng/ml (Acute) BPH (benign prostatic hyperplasia) (Chronic) Paroxysmal atrial fibrillation (Chronic) Medical History A-fib Anemia Anticoagulation adequate Ascites Bladder outlet obstruction Cardiorenal syndrome Cholelithiasis Congestive heart failure Cor pulmonale Corns and callus GERD (gastroesophageal reflux disease) History of alcohol abuse Hx of congestive heart failure Hx of myocardial infarction 2008 Hyperlipidemia Inguinal hernia Jaundice Lateral femoral cutaneous entrapment syndrome Myocardial infarct Nail disorder Nocturnal leg cramps Overweight Pain, joint, knee, left Rectal bleeding Surgical History Hx of CABG Hx of cataract surgery Hx of colonoscopy Hx of inguinal hernia surgery S/P CABG (coronary artery bypass graft) 2009 Social History Smoking/Tobacco Use Status: Former Tobacco Use Quit Date: 07/12/89 Tobacco: How many years used: 15 Smoking risk assessment performed?: Yes Alcohol Intake: former Drug use: Never Substance use type: does not use Do you feel safe at home: Yes Do you feel safe in your relationship?: Yes Exam Const Other: Well-developed well-nourished looks a bit younger than stated age no acute distress Eyes EOM: EOM intact bilaterally Neck Other: Neck is supple trachea is midline carotid pulsations are grossly normal in upstroke and volume there are prominent V waves in the jugular venous pulse Resp Auscultation: clear to auscultation bilaterally Cardio Other: Regular irregular rate controlled 2/6 systolic murmur heard at lower left sternal border, probable S3 Skin Other: Warm and dry Extrem Other: No significant edema Results Last Vital Signs Temp 36.2 C L 06/03/21 08:28 Pulse 73 06/03/21 08:02 Resp 16 06/03/21 08:20 BP 148/81 H 06/03/21 08:02 Pulse Ox 96 06/03/21 08:20 Labs Result diagrams: 06/03/21 06:10 06/03/21 06:10 Labs: Laboratory Results - last 24 hr 06/02/21 06/02/21 06/02/21 07:44 07:44 10:45 WBC 3.92 L RBC 4.05 L Hgb 12.3 L Hct 37.6 L MCV 92.8 MCH 30.4 MCHC 32.7 RDW 13.5 Plt Count 97 L MPV 12.3 H Immature Gran % 0.3 Neutrophils % 80.6 Lymphocytes % 10.7 Monocytes % 5.9 Eosinophils % 2.0 Basophils % 0.5 Nucleated RBC % 0 Absolute Neutrophils 3.16 Absolute Lymphocytes 0.42 L Absolute Monocytes 0.23 Absolute Eosinophils 0.08 Absolute Basophils 0.02 Sodium 141 Potassium 3.7 Chloride 105 Carbon Dioxide 29.5 Anion Gap 6.5 BUN 31 H Creatinine 1.2 Estimated GFR/1.73 m2 58.11 Glucose 138 H Calcium 8.7 Magnesium 2.3 Total Bilirubin 1.2 H AST 29 ALT 25 Alkaline Phosphatase 61 Troponin I < 0.05 0.09 H* NT-Pro-B Natriuret Pep 1150 H Total Protein 6.6 Albumin 3.8 TSH 1.54 COVID-19 Source SARS-CoV-2 (PCR) 06/02/21 06/02/21 06/03/21 11:15 17:47 06:10 WBC RBC Hgb Hct MCV MCH MCHC RDW Plt Count MPV Immature Gran % Neutrophils % Lymphocytes % Monocytes % Eosinophils % Basophils % Nucleated RBC % Absolute Neutrophils Absolute Lymphocytes Absolute Monocytes Absolute Eosinophils Absolute Basophils Sodium 142 Potassium 4.2 Chloride 107 Carbon Dioxide 26.4 Anion Gap 8.6 BUN 28 H Creatinine 1.2 Estimated GFR/1.73 m2 58.11 Glucose 114 H Calcium 8.5 Magnesium Total Bilirubin 1.2 H AST 41 H ALT 35 Alkaline Phosphatase 61 Troponin I 0.48 H* 0.39 H* NT-Pro-B Natriuret Pep Total Protein 6.2 L Albumin 3.5 TSH COVID-19 Source Nasal/Nares SARS-CoV-2 (PCR) Negative 06/03/21 06:10 WBC 4.88 RBC 3.99 L Hgb 12.0 L Hct 36.8 L MCV 92.2 MCH 30.1 MCHC 32.6 RDW 13.6 Plt Count 102 L MPV 11.9 H Immature Gran % 0.2 Neutrophils % 79.9 Lymphocytes % 8.4 Monocytes % 8.6 Eosinophils % 2.5 Basophils % 0.4 Nucleated RBC % 0 Absolute Neutrophils 3.90 Absolute Lymphocytes 0.41 L Absolute Monocytes 0.42 Absolute Eosinophils 0.12 Absolute Basophils 0.02 Sodium Potassium Chloride Carbon Dioxide Anion Gap BUN Creatinine Estimated GFR/1.73 m2 Glucose Calcium Magnesium Total Bilirubin AST ALT Alkaline Phosphatase Troponin I NT-Pro-B Natriuret Pep Total Protein Albumin TSH COVID-19 Source SARS-CoV-2 (PCR)
[2021-06-03] MEDS: Amiodarone 200 MG TAB 400 MG PO (08:53)
--- NOTE | 2021-06-03 09:08 | PDOC.CMIN ---
- If Service Date Differs Date of service: 06/03/21 Time of Service: 12:47 Care Management Initial Assess REASON FOR HOSPITALIZATION:: Ventricular Tachycardia PAST MEDICAL HISTORY/PAST SURGICAL HISTORY:: Current: Bone metastasis (Acute). Prostate cancer (Chronic). Incarcerated right inguinal hernia (Acute). Tricuspid regurgitation (Acute). Acute urinary retention (Acute). Urinary retention due to benign prostatic hyperplasia (Acute). Elevated PSA, greater than or equal to 20 ng/ml (Acute). BPH (benign prostatic hyperplasia) (Chronic). Paroxysmal atrial fibrillation (Chronic). A-fib. Anemia. Anticoagulation adequate. Ascites. Bladder outlet obstruction. Cardiorenal syndrome. Cholelithiasis. Cirrhosis. Congestive heart failure. Cor pulmonale. Corns and callus. GERD (gastroesophageal reflux disease). History of alcohol abuse. Hx of congestive heart failure. Hx of myocardial infarction. 2007. Hyperlipidemia. Inguinal hernia. Jaundice. Lateral femoral cutaneous entrapment syndrome. Myocardial infarct. Nail disorder. Nocturnal leg cramps. Overweight. Pain, joint, knee, left. Rectal bleeding. Surgical History . Hx of CABG. Hx of cataract surgery. Hx of colonoscopy. Hx of inguinal hernia surgery. S/P CABG (coronary artery bypass graft). 2009 PREVIOUS FUNCTIONAL STATUS/SOCIAL/FAMILY SUPPORTS:: Jonathan resides in [place] with his , Therese. His son resides nearby in [place]. Jonathan is independent at baseline. CURRENT FUNCTIONAL STATUS:: Jonathan continues to be closely monitored in the ICU at this time, per MD anticipate transfer to tertiary at this time. Has patient been provided with info about the portal/API?: Yes Did the patient sign up for the portal?: No CODE STATUS:: DNR INSURANCE COVERAGE / FINANCIAL ISSUES:: [facility] CURRENT HOME/COMMUNITY SERVICES/EQUIPMENT:: Monthly catheter changes; [facility] Urology. He does have metastatic prostate cancer and is followed by oncology and takes an anti-androgen medication-abiraterone. PRIMARY CARE PHYSICIAN:: Rudolph Ryan POTENTIAL DISCHARGE NEEDS:: Cardiology consult; trend troponins, further work up. PATIENT/FAMILY EDUCATION NEEDS:: Review of discharge instructions, discuss Ask Me Three. ANTICIPATED BARRIERS TO DISCHARGE:: None identified. TRANSPORTATION:: Dependent on disposition. PLAN:: Jonathan continues to be closely monitored and treated, per MD transfer is being sought at this time. CM continues to follow.
[2021-06-03] MEDS: Normal Saline Flush 10 ML SYR IVP (10:10)
--- NOTE | 2021-06-03 10:45 | RT.EKG_ITS ---
APPROVED REPORT Exam: Resting ECG Reason for Exam: change in rhythm Patient Location: I HR:77 bpm ECG Measurements Heart Rate 77 AXIS VA [id number] P [id number] QRSd 121 QRS 56 QT 433 T -42 QTc 489 Conclusion Atrial fibrillation...? atrial activity IVCD, consider RBBB...QRSd>120mS, terminal axis(90,270) Repol abnrm suggests ischemia, diffuse leads...ST-T neg, ant/lat/inf
--- NOTE | 2021-06-03 11:00 | RT.EKG_ITS ---
APPROVED REPORT Exam: Resting ECG Reason for Exam: change in rhythm Patient Location: I HR:110 bpm ECG Measurements Heart Rate 110 AXIS IL 60 P 0 QRSd 147 QRS -41 QT 401 T 135 QTc 543 Conclusion Atrial fibrillation Run of nonsustained ventricular tachycardia
--- NOTE | 2021-06-03 11:15 | RT.EKG_ITS ---
APPROVED REPORT Exam: Resting ECG Reason for Exam: change in rhythm Patient Location: I HR:87 bpm ECG Measurements Heart Rate 87 AXIS VT [id number] P [id number] QRSd 122 QRS 54 QT 430 T -44 QTc 517 Conclusion Atrial fibrillation...? atrial activity IVCD, consider RBBB...QRSd>120mS, terminal axis(90,270) Nonspecific repol abnormality, lateral leads...ST dep, T neg, I aVL V5 V6
--- NOTE | 2021-06-03 11:15 | RT.EKG_ITS ---
APPROVED REPORT Exam: Resting ECG Reason for Exam: Change in Rhythm Patient Location: I HR:129 bpm ECG Measurements Heart Rate 129 AXIS W[place] 142 P -46 QRSd 163 QRS -44 QT 416 T 132 QTc 611 Conclusion Ventricular tachycardia axis (-45,135), rate> 99 Left bundle branch block...QRSd>120, broad/notched R
[2021-06-03] MEDS: LIDOCAINE/D5W 2,000 MG/500 ML BAG 250 MG IV (11:21)
[2021-06-03 11:58] LABS: Troponin I 0.24 ng/mL (<0.06)
--- NOTE | 2021-06-03 14:36 | DSE_ITS ---
Date of service: 06/03/21 Time of Service: 14:36 DS: Diagnosis Discharge Diagnosis (1) Coronary artery disease: Status: Chronic (2) Ventricular tachycardia: Status: Chronic (3) A-fib: (4) Hx of mitral valve repair: Status: None (5) Prostate cancer: Status: Chronic Discharge Plan Disposition Patient Disposition: [facility] ([facility]) Condition: Stable Discharge Details Reason For Visit: Ventricular Tachycardia Admit Date/Time: 06/02/21 11:45 Admit Provider: Aly Goins Attending Provider: Aly Goins Primary Care [facility]: [facility] Course Hospital Course: This is an 80 yo male with a PMH of CAD/PR in 2007, CABG 2009, PAF, prostate cancer with bone mets. He presented with c/o racing heart/palpitations that began in the AM of presentation. He had taken his antiandrogen agent abiraterone at 6 AM and went back to lay down. His heart then began to race soon after lying down. He had a similar, short-lived (appx 5 min) episode of a racing heart 2 weeks ago and then again on the Wednesday before this admission (lasting appx 20mins). No CP during any of the episodes. No SOA, dizziness/lightheadedness. He received a 150mg amiodarone bolus en route per EMS and then appx 100ml of another bolus. In the ED his EKG showed V-tach vs SVT with aberrancy. He was noted to converted periodically to short runs of afib. An amiodarone infusion was initiated per recommendation of Dr Deng, cardiology. [facility] transfer center contacted. No bed availability. Suggestion made to give potassium to keep above 4.0. Also suggested was lidocaine if amiodarone not effective. He ultimately remained in atrial fibrillation with a rate consistently in the 80's. [facility] did accept patient, but he declined transfer. COVID negative. WBC count 3.92, Hgb 12.3. INR 1.5. K 3.7 (IV K+ infused). BUN 31. Creatinine 1.2. Glucose 138. On the amiodarone drip he would have brief runs of Vtach. He was asymptomatic. The following AM he had longer periods of breakthrough Vtach after transitioning to oral amiodarone. Caridology consulted, Dr. Deng. Lidocaine bolus of 50mg given, followed by a drip at a rate of 0.5/min. This was the suggested dosing per cardiology at [facility]. Etiology of the Vtach is not clear, but cardiac ischemia is of concern given h/o CAD/CABG. He has been accepted at [facility] for transfer to cardiology. His vital signs remain stable. He is in atrial fibrillation with a controlled rate. Home Meds and New Rx's Prescriptions: No Action Xarelto 15 mg tablet 15 mg PO DAILY RF: 0 famotidine [Acid [place] (famotidine)] 20 mg tablet 20 mg PO BID RF: 0 abiraterone 250 mg tablet 1,000 mg PO DAILY RF: 0 prednisone 5 mg tablet 5 mg PO DAILY RF: 0 furosemide 40 MG tablet 40 mg PO DAILY Qty: 30 RF: 0 diltiazem HCl 180 MG capsule,extended release 24 hr 180 mg PO DAILY Qty: 30 RF: 0 aspirin [Aspir-81] 81 MG tablet,delayed release (DR/EC) 81 mg PO .QOD RF: 0 atorvastatin [Lipitor] 40 MG tablet 40 mg PO HS RF: 0 losartan 50 MG tablet 50 mg PO DAILY RF: 0 tamsulosin 0.4 mg capsule 0.8 mg PO DAILY RF: 0 Discharge Orders Discharge Orders: Discharge Order (Routine); Ordered 06/03/21 Ordered By: Aly Goins DS: Summary Time Spent with Patient providing and/or coordinating discharge services: Greater than 30 minutes Status at Discharge Functional status at discharge: independent ambulation Overall status at discharge: patient is not back to baseline Mental Status: mental status grossly normal Speech and Movement: speech and movement normal Mood: congruent mood Affect: normal affect Exam Const General: cooperative and no acute distress Nutritional Appearance: average body habitus Orientation: alert and oriented x3 HENMT Head: normocephalic and atraumatic Ears: hearing grossly normal bilaterally Neck Neck: full ROM and no JVD Resp Effort & Inspection: normal respiratory effort Auscultation: clear to auscultation bilaterally Cardio Rhythm: abnormal rhythm irregularly irregular GI Palpation: soft and nontender Auscultation: normal bowel sounds Skin General skin exam: no rashes or lesions noted Neuro General: no focal motor deficits Cognition: normal cognition Speech: speech normal Extrem General: no calf tenderness and edema Laterality: bilateral (tr) Psych Mental Status: mental status grossly normal Speech and Movement: speech and movement normal Mood: congruent mood Affect: normal affect DS: Data Vitals/I&O Vitals and I&O: Vital Signs Temperature 36.6 C 06/03/21 13:30 Temperature Source Temporal Artery Scan 06/03/21 13:30 Pulse 73 06/03/21 08:02 Pulse 94 H 06/03/21 08:20 Respiratory Rate 16 06/03/21 08:20 Respiratory Effort 06/03/21 13:30 Respiratory Depth Normal 06/03/21 13:30 Respiratory Pattern Normal 06/03/21 13:30 Blood Pressure 148/81 H 06/03/21 08:02 Blood Pressure Mean 95 06/03/21 08:02 Blood Pressure Position Supine 06/03/21 13:30 Pulse Oximetry 96 06/03/21 08:20 Oxygen Delivery Method Room Air 06/03/21 13:30 Oxygen Flow Rate 0 06/03/21 13:30 Pain Level 0 06/03/21 13:30 Intake & Output 06/02/21 06/03/21 06/03/21 23:59 11:59 23:59 Intake Total 824.997 / 964.997 727.783 / 1227.783 500 / 1227.783 Output Total 525 / 625 1250 / 1250 Balance 299.997 / 339.997 -522.217 / -22.217 500 / -22.217 Weight 81.6 kg 79.2 kg Intake: IV 524.997 / 664.997 247.783 / 247.783 Oral 300 / 300 480 / 980 500 / 980 Output: Urine 525 / 625 1250 / 1250 Other: Urine Color Yellow Yellow Urine Appearance Clear Clear Urine Odor None None Comment indwelling urinary catheter with a plug at meatus. Pt uses urinal to drain bladder independently Stool Size Moderate Stool Characteristics Soft Formed Voiding Methods Urinal Urinal Indwelling Catheter Self-Catheterization Data Completed and Pending Labs on day of discharge: Labs from last 24 hours 06/03/21 06/03/21 06/03/21 11:33 08:00 06:10 WBC RBC Hgb Hct MCV MCH MCHC RDW Plt Count MPV Immature Gran % Neutrophils % Lymphocytes % Monocytes % Eosinophils % Basophils % Nucleated RBC % Absolute Neutrophils Absolute Lymphocytes Absolute Monocytes Absolute Eosinophils Absolute Basophils Sodium Potassium Chloride Carbon Dioxide Anion Gap BUN Creatinine Estimated GFR/1.73 m2 Glucose Calcium Total Bilirubin AST ALT Alkaline Phosphatase Troponin I 0.24 H* Total Protein Albumin PSA Ultra-Sensitive Pending Total Testosterone Pending 06/03/21 06/03/21 06/02/21 06:10 06:10 17:47 WBC 4.88 RBC 3.99 L Hgb 12.0 L Hct 36.8 L MCV 92.2 MCH 30.1 MCHC 32.6 RDW 13.6 Plt Count 102 L MPV 11.9 H Immature Gran % 0.2 Neutrophils % 79.9 Lymphocytes % 8.4 Monocytes % 8.6 Eosinophils % 2.5 Basophils % 0.4 Nucleated RBC % 0 Absolute Neutrophils 3.90 Absolute Lymphocytes 0.41 L Absolute Monocytes 0.42 Absolute Eosinophils 0.12 Absolute Basophils 0.02 Sodium 142 Potassium 4.2 Chloride 107 Carbon Dioxide 26.4 Anion Gap 8.6 BUN 28 H Creatinine 1.2 Estimated GFR/1.73 m2 58.11 Glucose 114 H Calcium 8.5 Total Bilirubin 1.2 H AST 41 H ALT 35 Alkaline Phosphatase 61 Troponin I 0.39 H* 0.48 H* Total Protein 6.2 L Albumin 3.5 PSA Ultra-Sensitive Total Testosterone [facility] Active Problem List Thrombocytopenia (Chronic) Anemia (Chronic) NSTEMI (non-ST elevated myocardial infarction) (Acute) Coronary artery disease (Chronic) Cirrhosis (Acute) Ventricular tachycardia (Chronic) Bone metastasis (Acute) Prostate cancer (Chronic) Incarcerated right inguinal hernia (Acute) Tricuspid regurgitation (Acute) Acute urinary retention (Acute) Urinary retention due to benign prostatic hyperplasia (Acute) Elevated PSA, greater than or equal to 20 ng/ml (Acute) BPH (benign prostatic hyperplasia) (Chronic) Paroxysmal atrial fibrillation (Chronic) Medical History A-fib Anemia Anticoagulation adequate Ascites Bladder outlet obstruction Cardiorenal syndrome Cholelithiasis Congestive heart failure Cor pulmonale Corns and callus GERD (gastroesophageal reflux disease) History of alcohol abuse Hx of congestive heart failure Hx of myocardial infarction 2007 Hyperlipidemia Inguinal hernia Jaundice Lateral femoral cutaneous entrapment syndrome Myocardial infarct Nail disorder Nocturnal leg cramps Overweight Pain, joint, knee, left Rectal bleeding Surgical History Hx of CABG Hx of cataract surgery Hx of colonoscopy Hx of inguinal hernia surgery S/P CABG (coronary artery bypass graft) 2009 Social History Smoking/Tobacco Use Status: Former Tobacco Use Quit Date: 07/12/89 Tobacco: How many years used: 15 Smoking risk assessment performed?: Yes Alcohol Intake: former Drug use: Never Substance use type: does not use Do you feel safe at home: Yes Do you feel safe in your relationship?: Yes
--- NOTE | 2021-06-03 14:44 | CHAPLAIN ---
I had a brief visit with Jonathan. I think he wondered why I was visiting him. I explained my role and offered support. He lives in [place] with his . He said his and two kids visited yesterday. He is being discharged this afternoon to [facility].
[2021-06-05 07:04] LABS: Testosterone, Total <7.0 ng/dL (240-950)
[2021-06-06 15:05] LABS: PSA, Ultrasensitive 0.63 ng/mL (<= 7.2)
== END 2021-06-03 15:04 | disposition short-term general hospital (02) | DRG 309 ==
LOC: ER 12:24 → ICU 12:42
PROVIDERS: Internal Medicine; Admitting Provider Family Medicine; Emergency Provider Student in an Organized Health Care Education/Training Program; PCP Internal Medicine; Visit Provider Family Medicine
DX: I47.2 Ventricular tachycardia (principal); C79.51 Secondary malignant neoplasm of bone; I48.0 Paroxysmal atrial fibrillation; C61 Malignant neoplasm of prostate; I25.10 Atherosclerotic heart disease of native coronary artery without angina pectoris; I25.2 Old myocardial infarction; Z95.1 Presence of aortocoronary bypass graft; Z20.822 Contact with and (suspected) exposure to COVID-19; D64.9 Anemia, unspecified; Z79.01 Long term (current) use of anticoagulants; K21.9 Gastro-esophageal reflux disease without esophagitis; D69.6 Thrombocytopenia, unspecified; I07.1 Rheumatic tricuspid insufficiency; Z95.2 Presence of prosthetic heart valve; K74.60 Unspecified cirrhosis of liver
CPT/HCPCS: 36415; 80053; 84153; 84403; 87635; 93005; 93306; 96361; 96365; 96366; 96368; 96376; 99222; 99291; 71045; 83735; 83880; 84443; 84484; 85025; 85379; 85610; 85730; 93010; 99223; 99239; J2001; J3480; J3490; J7512

== ENCOUNTER → 2021-06-09 08:19 | Outpatient (BNVA) | payer MEDICARE, SELFPAY | PROVIDERS: PCP Internal Medicine; Visit Provider Nurse Practitioner Gerontology | DX: C61 Malignant neoplasm of prostate (principal); C79.51 Secondary malignant neoplasm of bone; R97.20 Elevated prostate specific antigen [PSA]; Z46.6 Encounter for fitting and adjustment of urinary device | CPT/HCPCS: 51702; 96402; J9217 ==

== ENCOUNTER 2021-07-02 13:27 | Outpatient (CLI) | payer MEDICARE, SELFPAY ==
[2021-07-02 13:42] LABS: Abs Immature Grans 0.04 10^3/uL (0.0-0.06); Absolute Basophil Count 0.04 10^3/uL (0.0-0.2); Absolute Eosinophil Count 0.03 10^3/uL (0.0-0.7); Absolute Lymphocyte Count 0.21 10^3/uL (1.2-3.4); Absolute Monocyte Count 0.45 10^3/uL (0.1-0.8); Basophils % 0.5; Eosinophils % 0.4; HCT 36.5 % (40.0-50.0); HGB 11.7 g/dL (13.5-17.5); Immature Grans % 0.5; Lymphocytes % 2.8; MCH 29.8 pg (27.0-33.0); MCHC 32.1 % (32.0-36.0); MCV 93.1 fL (80-95); MPV 11.5 fL (8.0-11.0); Monocytes % 5.9; Neutrophils % 89.9; Nucleated RBC 0 %; Platelet Count 124 10^3/uL (130-400); RBC 3.92 10^6/uL (4.36-5.78); RDW 13.6 % (11.8-14.1); RDW-SD 46.1 fL; WBC 7.57 10^3/uL (4.4-10.8)
[2021-07-02 14:04] LABS: ALT 41 U/L (16-63); AST 28 U/L (15-37); Albumin 3.6 g/dL (3.4-5.0); Alkaline Phosphatase 79 U/L (46-116); Anion Gap 8.3 mmol/L (3-11); BUN 23 mg/dL (7-18); Bilirubin, Total 1.5 mg/dL (0.2-1.0); CO2 26.7 mmol/L (21.0-32.0); CREATININE 1.5 mg/dL (0.70-1.30); Calcium 8.4 mg/dL (8.5-10.1); Chloride 104 mmol/L (98-107); Estimated GFR 44.92 (mL/min/1.73m2); Glucose 213 mg/dL (74-106); Potassium 3.6 mmol/L (3.5-5.1); Sodium 139 mmol/L (136-145); Total Protein 6.6 g/dL (6.4-8.2)
[2021-07-07 17:05] LABS: PSA, Ultrasensitive 0.59 ng/mL (<= 7.2)
[2021-07-07 18:46] LABS: Testosterone, Total <7.0 ng/dL (240-950)
== END 2021-07-02 13:28 | disposition home or self-care (01) ==
LOC: LBO 13:28
PROVIDERS: PCP Internal Medicine; Visit Provider Internal Medicine
DX: C61 Malignant neoplasm of prostate (principal); C79.51 Secondary malignant neoplasm of bone
CPT/HCPCS: 36415; 80053; 84153; 84403; 85025

== ENCOUNTER 2021-07-09 00:18 | Outpatient (CLI) | payer MEDICARE, SELFPAY ==
--- NOTE | 2021-07-09 | DI.US_ITS ---
Exam(s) US ABDOMEN LIMITED EXAM: US ABDOMEN LIMITED CLINICAL HISTORY: ASCITES,R18.8,PARCENTESIS PLANNING TECHNIQUE: Ultrasound abdomen performed using standard protocol. COMPARISON: FINDINGS: There is no ascites evident on these images of the 4 quadrants.. IMPRESSION: 1. No ascites evident. DATA REPOSITORY:
== END 2021-07-09 00:38 ==
PROVIDERS: PCP Internal Medicine; Visit Provider Internal Medicine
DX: R18.8 Other ascites (principal)
CPT/HCPCS: 76705

== ENCOUNTER → 2021-07-10 09:23 | Outpatient (BNVA) | payer MEDICARE, SELFPAY | PROVIDERS: PCP Internal Medicine; Visit Provider Nurse Practitioner Gerontology | DX: C61 Malignant neoplasm of prostate (principal); C79.51 Secondary malignant neoplasm of bone; R97.20 Elevated prostate specific antigen [PSA]; Z51.11 Encounter for antineoplastic chemotherapy; Z46.6 Encounter for fitting and adjustment of urinary device; R33.9 Retention of urine, unspecified | CPT/HCPCS: 51702; 96402; J9217 ==

== ENCOUNTER 2021-07-10 10:05 | Outpatient (CLI) | payer MEDICARE, SELFPAY ==
--- NOTE | 2021-07-10 10:30 | RT.EKG_ITS ---
APPROVED REPORT Exam: Resting ECG Reason for Exam: 1 Year check in Patient Location: O HR:66 bpm ECG Measurements Heart Rate 66 AXIS VT [id number] P [id number] QRSd 136 QRS 104 QT 495 T -13 QTc 519 Conclusion Atrial fibrillation...? atrial activity Nonspecific intraventricular conduction delay...QRSd >115mS, not LBBB/RBBB Nonspecific repol abnormality, diffuse leads...ST dep, T flat/neg, ant/lat/inf
== END 2021-07-10 10:06 | disposition home or self-care (01) ==
LOC: DI.CARD 10:32
PROVIDERS: PCP Internal Medicine; Referring Provider Internal Medicine; Visit Provider Internal Medicine Cardiovascular Disease
DX: I47.2 Ventricular tachycardia (principal)
CPT/HCPCS: 93010

== ENCOUNTER → 2021-07-10 10:05 | Outpatient (BNVA) | payer MEDICARE, SELFPAY | PROVIDERS: PCP Internal Medicine; Referring Provider Internal Medicine; Visit Provider Internal Medicine Cardiovascular Disease | DX: I47.2 Ventricular tachycardia (principal); I25.10 Atherosclerotic heart disease of native coronary artery without angina pectoris; I48.21 Permanent atrial fibrillation; Z98.890 Other specified postprocedural states; I42.9 Cardiomyopathy, unspecified; Z79.01 Long term (current) use of anticoagulants | CPT/HCPCS: 36415; 51702; 80053; 93005; 96402; 99214; J9217 ==

== ENCOUNTER 2021-07-10 15:12 | Outpatient (CLI) | payer MEDICARE, SELFPAY ==
[2021-07-10 15:48] LABS: ALT 30 U/L (16-63); AST 26 U/L (15-37); Albumin 3.6 g/dL (3.4-5.0); Alkaline Phosphatase 74 U/L (46-116); Anion Gap 5.3 mmol/L (3-11); BUN 27 mg/dL (7-18); Bilirubin, Total 1.5 mg/dL (0.2-1.0); CO2 32.7 mmol/L (21.0-32.0); CREATININE 1.5 mg/dL (0.70-1.30); Calcium 8.7 mg/dL (8.5-10.1); Chloride 104 mmol/L (98-107); Estimated GFR 44.92 (mL/min/1.73m2); Glucose 162 mg/dL (74-106); Potassium 3.9 mmol/L (3.5-5.1); Sodium 142 mmol/L (136-145); Total Protein 6.4 g/dL (6.4-8.2)
== END 2021-07-10 15:13 | disposition home or self-care (01) ==
LOC: LBO 15:19
PROVIDERS: PCP Internal Medicine; Visit Provider Internal Medicine
DX: C61 Malignant neoplasm of prostate (principal); C79.51 Secondary malignant neoplasm of bone
CPT/HCPCS: 36415; 80053

== ENCOUNTER 2021-07-17 14:42 | Outpatient (CLI) | payer MEDICARE, SELFPAY ==
[2021-07-17 12:37] LABS: Abs Immature Grans 0.02 10^3/uL (0.0-0.06); Absolute Basophil Count 0.04 10^3/uL (0.0-0.2); Absolute Eosinophil Count 0.09 10^3/uL (0.0-0.7); Absolute Lymphocyte Count 0.47 10^3/uL (1.2-3.4); Absolute Monocyte Count 0.65 10^3/uL (0.1-0.8); Absolute Neutrophil Count 3.97 10^3/uL (1.2-6.7); Basophils % 0.8; Eosinophils % 1.7; HCT 38.5 % (40.0-50.0); HGB 11.9 g/dL (13.5-17.5); Immature Grans % 0.4; MCH 29.1 pg (27.0-33.0); MCHC 30.9 % (32.0-36.0); MCV 94.1 fL (80-95); MPV 11.6 fL (8.0-11.0); Monocytes % 12.4; Neutrophils % 75.7; Nucleated RBC 0 %; Platelet Count 132 10^3/uL (130-400); RBC 4.09 10^6/uL (4.36-5.78); RDW 14.6 % (11.8-14.1); WBC 5.24 10^3/uL (4.4-10.8)
[2021-07-17 12:54] LABS: ALT 36 U/L (16-63); AST 32 U/L (15-37); Albumin 3.9 g/dL (3.4-5.0); Alkaline Phosphatase 79 U/L (46-116); Anion Gap 7.2 mmol/L (3-11); BUN 32 mg/dL (7-18); Bilirubin, Total 1.8 mg/dL (0.2-1.0); CO2 29.8 mmol/L (21.0-32.0); CREATININE 1.6 mg/dL (0.70-1.30); Calcium 9.1 mg/dL (8.5-10.1); Chloride 104 mmol/L (98-107); Estimated GFR 41.69 (mL/min/1.73m2); Glucose 87 mg/dL (74-106); Potassium 4.3 mmol/L (3.5-5.1); Sodium 141 mmol/L (136-145)
[2021-07-18 16:07] LABS: PSA, Ultrasensitive 0.68 ng/mL (<= 7.2)
[2021-07-21 00:19] LABS: Testosterone, Total <7.0 ng/dL (240-950)
== END 2021-07-17 14:43 | disposition home or self-care (01) ==
LOC: LBO 14:44
PROVIDERS: PCP Internal Medicine; Visit Provider Internal Medicine
DX: C61 Malignant neoplasm of prostate (principal); C79.51 Secondary malignant neoplasm of bone
CPT/HCPCS: 36415; 80053; 84153; 84403; 85025

== ENCOUNTER 2021-07-22 02:14 | Outpatient (CLI) | payer MEDICARE, SELFPAY ==
[2021-07-22 13:46] LABS: Abs Immature Grans 0.02 10^3/uL (0.0-0.06); Absolute Basophil Count 0.02 10^3/uL (0.0-0.2); Absolute Eosinophil Count 0.07 10^3/uL (0.0-0.7); Absolute Lymphocyte Count 0.43 10^3/uL (1.2-3.4); Absolute Monocyte Count 0.51 10^3/uL (0.1-0.8); Absolute Neutrophil Count 3.88 10^3/uL (1.2-6.7); Basophils % 0.4; Eosinophils % 1.4; HCT 37.8 % (40.0-50.0); HGB 11.8 g/dL (13.5-17.5); Immature Grans % 0.4; Lymphocytes % 8.7; MCH 29.1 pg (27.0-33.0); MCHC 31.2 % (32.0-36.0); MCV 93.1 fL (80-95); MPV 12.2 fL (8.0-11.0); Monocytes % 10.3; Neutrophils % 78.8; Nucleated RBC 0 %; Platelet Count 122 10^3/uL (130-400); RBC 4.06 10^6/uL (4.36-5.78); RDW 14.9 % (11.8-14.1); RDW-SD 50.6 fL; WBC 4.93 10^3/uL (4.4-10.8)
[2021-07-22 14:06] LABS: ALT 36 U/L (16-63); AST 31 U/L (15-37); Albumin 3.9 g/dL (3.4-5.0); Alkaline Phosphatase 71 U/L (46-116); Anion Gap 6.3 mmol/L (3-11); BUN 28 mg/dL (7-18); Bilirubin, Total 1.6 mg/dL (0.2-1.0); CO2 29.7 mmol/L (21.0-32.0); CREATININE 1.6 mg/dL (0.70-1.30); Calcium 8.8 mg/dL (8.5-10.1); Chloride 105 mmol/L (98-107); Estimated GFR 41.69 (mL/min/1.73m2); Glucose 140 mg/dL (74-106); Potassium 4.2 mmol/L (3.5-5.1); Sodium 141 mmol/L (136-145); Total Protein 6.9 g/dL (6.4-8.2)
[2021-07-23 14:06] LABS: PSA, Ultrasensitive 0.59 ng/mL (<= 7.2)
[2021-07-24 23:11] LABS: Testosterone, Total <7.0 ng/dL (240-950)
== END 2021-07-22 02:15 | disposition home or self-care (01) ==
LOC: LBO 02:14
PROVIDERS: PCP Internal Medicine; Visit Provider Internal Medicine
DX: C61 Malignant neoplasm of prostate (principal); C79.51 Secondary malignant neoplasm of bone
CPT/HCPCS: 36415; 80053; 84153; 84403; 85025

== ENCOUNTER → 2021-08-11 08:20 | Outpatient (BNVA) | payer MEDICARE, SELFPAY | PROVIDERS: PCP Internal Medicine; Visit Provider Nurse Practitioner Gerontology | DX: C61 Malignant neoplasm of prostate (principal); C79.51 Secondary malignant neoplasm of bone; R97.20 Elevated prostate specific antigen [PSA]; Z46.6 Encounter for fitting and adjustment of urinary device | CPT/HCPCS: 51702; 96402; J9217 ==

== ENCOUNTER 2021-08-19 02:05 | Outpatient (CLI) | payer MEDICARE, SELFPAY ==
[2021-08-19 15:12] LABS: Abs Immature Grans 0.02 10^3/uL (0.0-0.06); Absolute Basophil Count 0.02 10^3/uL (0.0-0.2); Absolute Eosinophil Count 0.02 10^3/uL (0.0-0.7); Absolute Lymphocyte Count 0.48 10^3/uL (1.2-3.4); Absolute Monocyte Count 0.44 10^3/uL (0.1-0.8); Absolute Neutrophil Count 5.69 10^3/uL (1.2-6.7); Basophils % 0.3; Eosinophils % 0.3; HCT 37.5 % (40.0-50.0); Immature Grans % 0.3; Lymphocytes % 7.2; MCH 29.6 pg (27.0-33.0); MCV 92.4 fL (80-95); MPV 11.8 fL (8.0-11.0); Monocytes % 6.6; Neutrophils % 85.3; Nucleated RBC 0 %; Platelet Count 118 10^3/uL (130-400); RBC 4.06 10^6/uL (4.36-5.78); RDW 15.4 % (11.8-14.1); RDW-SD 52.3 fL; WBC 6.67 10^3/uL (4.4-10.8)
[2021-08-19 16:50] LABS: ALT 36 U/L (16-63); AST 28 U/L (15-37); Albumin 4.2 g/dL (3.4-5.0); Alkaline Phosphatase 58 U/L (46-116); Anion Gap 8.5 mmol/L (3-11); BUN 43 mg/dL (7-18); Bilirubin, Total 1.8 mg/dL (0.2-1.0); CO2 27.5 mmol/L (21.0-32.0); CREATININE 1.9 mg/dL (0.70-1.30); Calcium 9.2 mg/dL (8.5-10.1); Chloride 104 mmol/L (98-107); Estimated GFR 34.19 (mL/min/1.73m2); Glucose 128 mg/dL (74-106); Potassium 5.1 mmol/L (3.5-5.1); Sodium 140 mmol/L (136-145); Total Protein 6.9 g/dL (6.4-8.2)
[2021-08-20 17:20] LABS: PSA, Ultrasensitive 0.57 ng/mL (<= 7.2)
[2021-08-25 18:05] LABS: Testosterone, Total <7.0 ng/dL (240-950)
== END 2021-08-19 02:06 | disposition home or self-care (01) ==
LOC: LBO 02:05
PROVIDERS: PCP Internal Medicine; Visit Provider Internal Medicine
DX: C61 Malignant neoplasm of prostate (principal); C79.51 Secondary malignant neoplasm of bone
CPT/HCPCS: 36415; 80053; 84153; 84403; 85025

== ENCOUNTER → 2021-09-10 08:20 | Outpatient (BNVA) | payer MEDICARE, SELFPAY | PROVIDERS: PCP Internal Medicine; Visit Provider Nurse Practitioner Gerontology | DX: C79.51 Secondary malignant neoplasm of bone (principal); R97.20 Elevated prostate specific antigen [PSA]; C61 Malignant neoplasm of prostate | CPT/HCPCS: 51702; 96402; J9217 ==

== ENCOUNTER 2021-10-09 09:32 | Outpatient (CLI) | payer MEDICARE, SELFPAY ==
--- NOTE | 2021-10-09 09:30 | RT.EKG_ITS ---
APPROVED REPORT Exam: Resting ECG Reason for Exam: VT Patient Location: O HR:78 bpm ECG Measurements Heart Rate 78 AXIS TX [id number] P [id number] QRSd 124 QRS 69 QT 463 T -46 QTc 528 Conclusion Atrial fibrillation...? atrial activity Nonspecific intraventricular conduction delay...QRSd >115mS, not LBBB/RBBB Nonspecific repol abnormality, diffuse leads...ST dep, T flat/neg, ant/lat/inf
== END 2021-10-09 09:33 | disposition home or self-care (01) ==
LOC: DI.CARD 09:33
PROVIDERS: PCP Internal Medicine; Visit Provider Internal Medicine Cardiovascular Disease
DX: I48.91 Unspecified atrial fibrillation (principal); I21.4 Non-ST elevation (NSTEMI) myocardial infarction; I42.9 Cardiomyopathy, unspecified; I47.2 Ventricular tachycardia; I45.89 Other specified conduction disorders
CPT/HCPCS: 93010

== ENCOUNTER → 2021-10-09 12:49 | Outpatient (BNVA) | payer MEDICARE, SELFPAY | PROVIDERS: PCP Internal Medicine; Visit Provider Nurse Practitioner Gerontology | DX: R97.20 Elevated prostate specific antigen [PSA] (principal); C61 Malignant neoplasm of prostate; C79.51 Secondary malignant neoplasm of bone | CPT/HCPCS: 51702; 96402; J9217 ==

== ENCOUNTER → 2021-10-09 13:14 | Outpatient (BNVA) | payer MEDICARE, SELFPAY | PROVIDERS: PCP Internal Medicine; Visit Provider Internal Medicine Cardiovascular Disease | DX: I25.10 Atherosclerotic heart disease of native coronary artery without angina pectoris (principal); I48.0 Paroxysmal atrial fibrillation; I25.2 Old myocardial infarction; I47.2 Ventricular tachycardia; I42.9 Cardiomyopathy, unspecified | CPT/HCPCS: 51702; 93005; 96402; 99214; 99213; J9217 ==

== ENCOUNTER → 2021-11-13 13:24 | Outpatient (BNVA) | payer MEDICARE, SELFPAY | PROVIDERS: PCP Internal Medicine; Visit Provider Nurse Practitioner Gerontology | DX: C79.51 Secondary malignant neoplasm of bone (principal); R97.20 Elevated prostate specific antigen [PSA]; C61 Malignant neoplasm of prostate | CPT/HCPCS: 51702; 96402; J9217 ==

== ENCOUNTER 2021-11-18 01:50 | Outpatient (CLI) | payer MEDICARE, SELFPAY ==
[2021-11-18 13:07] LABS: Abs Immature Grans 0.04 10^3/uL (0.0-0.06); Absolute Basophil Count 0.03 10^3/uL (0.0-0.2); Absolute Eosinophil Count 0.04 10^3/uL (0.0-0.7); Absolute Lymphocyte Count 0.33 10^3/uL (1.2-3.4); Absolute Monocyte Count 0.38 10^3/uL (0.1-0.8); Absolute Neutrophil Count 6.43 10^3/uL (1.2-6.7); Basophils % 0.4; Eosinophils % 0.6; HCT 38.1 % (40.0-50.0); HGB 12.3 g/dL (13.5-17.5); Immature Grans % 0.6; Lymphocytes % 4.6; MCH 31.1 pg (27.0-33.0); MCHC 32.3 % (32.0-36.0); MCV 96 fL (80-95); MPV 10.9 fL (8.0-11.0); Monocytes % 5.2; Neutrophils % 88.6; Platelet Count 141 10^3/uL (130-400); RBC 3.96 10^6/uL (4.36-5.78); RDW 14.5 % (11.8-14.1); RDW-SD 50.9 fL; WBC 7.25 10^3/uL (4.4-10.8)
[2021-11-18 13:21] LABS: ALT 32 U/L (16-63); AST 23 U/L (15-37); Albumin 4.1 g/dL (3.4-5.0); Alkaline Phosphatase 58 U/L (46-116); Anion Gap 8.2 mmol/L (3-11); BUN 55 mg/dL (7-18); Bilirubin, Total 1.7 mg/dL (0.2-1.0); CO2 27.8 mmol/L (21.0-32.0); CREATININE 2.3 mg/dL (0.70-1.30); Calcium 8.6 mg/dL (8.5-10.1); Chloride 104 mmol/L (98-107); Estimated GFR 27.43 (mL/min/1.73m2); Glucose 136 mg/dL (74-106); Potassium 5.3 mmol/L (3.5-5.1); Sodium 140 mmol/L (136-145); Total Protein 6.9 g/dL (6.4-8.2)
[2021-11-22 12:26] LABS: Testosterone, Total <7.0 ng/dL (240-950)
== END 2021-11-18 01:51 | disposition home or self-care (01) ==
LOC: LBO 01:51
PROVIDERS: PCP Internal Medicine; Visit Provider Internal Medicine
DX: C61 Malignant neoplasm of prostate (principal); C79.51 Secondary malignant neoplasm of bone
CPT/HCPCS: 36415; 80053; 84153; 84403; 85025

== ENCOUNTER 2021-11-25 17:27 | Outpatient (CLI) | payer MEDICARE, SELFPAY ==
[2021-11-25 13:42] LABS: Abs Immature Grans 0.03 10^3/uL (0.0-0.06); Absolute Basophil Count 0.02 10^3/uL (0.0-0.2); Absolute Eosinophil Count 0.15 10^3/uL (0.0-0.7); Absolute Lymphocyte Count 0.41 10^3/uL (1.2-3.4); Absolute Monocyte Count 0.48 10^3/uL (0.1-0.8); Absolute Neutrophil Count 4.06 10^3/uL (1.2-6.7); Basophils % 0.4; Eosinophils % 2.9; HCT 34.6 % (40.0-50.0); HGB 11.3 g/dL (13.5-17.5); Immature Grans % 0.6; MCH 31.5 pg (27.0-33.0); MCHC 32.7 % (32.0-36.0); MCV 96 fL (80-95); MPV 11.3 fL (8.0-11.0); Monocytes % 9.3; Neutrophils % 78.8; Platelet Count 120 10^3/uL (130-400); RBC 3.59 10^6/uL (4.36-5.78); RDW 14.2 % (11.8-14.1); RDW-SD 50.7 fL; WBC 5.15 10^3/uL (4.4-10.8)
[2021-11-25 14:48] LABS: ALT 38 U/L (16-63); AST 26 U/L (15-37); Alkaline Phosphatase 57 U/L (46-116); Anion Gap 8.1 mmol/L (3-11); BUN 37 mg/dL (7-18); Bilirubin, Total 1.4 mg/dL (0.2-1.0); CO2 28.9 mmol/L (21.0-32.0); CREATININE 1.9 mg/dL (0.70-1.30); Calcium 8.4 mg/dL (8.5-10.1); Chloride 107 mmol/L (98-107); Estimated GFR 34.19 (mL/min/1.73m2); Glucose 115 mg/dL (74-106); Potassium 4.2 mmol/L (3.5-5.1); Sodium 144 mmol/L (136-145); Total Protein 6.5 g/dL (6.4-8.2)
[2021-11-27 16:54] LABS: PSA, Ultrasensitive 0.44 ng/mL (<= 7.2)
[2021-11-29 16:09] LABS: Testosterone, Total <7.0 ng/dL (240-950)
== END 2021-11-25 17:28 | disposition home or self-care (01) ==
LOC: LBO 17:28
PROVIDERS: PCP Internal Medicine; Visit Provider Internal Medicine
DX: C61 Malignant neoplasm of prostate (principal); C79.51 Secondary malignant neoplasm of bone
CPT/HCPCS: 36415; 80053; 84153; 84403; 85025

== ENCOUNTER 2021-12-16 15:41 | Outpatient (CLI) | payer MEDICARE, SELFPAY ==
[2021-12-16 10:41] LABS: Abs Immature Grans 0.02 10^3/uL (0.0-0.06); Absolute Basophil Count 0.01 10^3/uL (0.0-0.2); Absolute Eosinophil Count 0.08 10^3/uL (0.0-0.7); Absolute Lymphocyte Count 0.41 10^3/uL (1.2-3.4); Absolute Monocyte Count 0.64 10^3/uL (0.1-0.8); Absolute Neutrophil Count 3.82 10^3/uL (1.2-6.7); Basophils % 0.2; Eosinophils % 1.6; HCT 33.3 % (40.0-50.0); HGB 10.6 g/dL (13.5-17.5); Immature Grans % 0.4; Lymphocytes % 8.2; MCHC 31.8 % (32.0-36.0); MCV 97 fL (80-95); MPV 11.3 fL (8.0-11.0); Monocytes % 12.9; Neutrophils % 76.7; Platelet Count 128 10^3/uL (130-400); RBC 3.42 10^6/uL (4.36-5.78); RDW 13.2 % (11.8-14.1); RDW-SD 47.8 fL; WBC 4.98 10^3/uL (4.4-10.8)
[2021-12-16 10:56] LABS: ALT 37 U/L (16-63); AST 28 U/L (15-37); Albumin 4.1 g/dL (3.4-5.0); Alkaline Phosphatase 62 U/L (46-116); Anion Gap 7.1 mmol/L (3-11); BUN 33 mg/dL (7-18); Bilirubin, Total 1.2 mg/dL (0.2-1.0); CO2 27.9 mmol/L (21.0-32.0); CREATININE 1.9 mg/dL (0.70-1.30); Calcium 9.2 mg/dL (8.5-10.1); Chloride 104 mmol/L (98-107); Estimated GFR 34.19 (mL/min/1.73m2); Glucose 98 mg/dL (74-106); Potassium 4.5 mmol/L (3.5-5.1); Sodium 139 mmol/L (136-145)
[2021-12-17 15:52] LABS: PSA, Ultrasensitive 0.31 ng/mL (<= 7.2)
[2021-12-22 10:26] LABS: Testosterone, Total <7.0 ng/dL (240-950)
== END 2021-12-16 15:42 | disposition home or self-care (01) ==
LOC: LBO 15:43
PROVIDERS: PCP Internal Medicine; Visit Provider Internal Medicine
DX: C61 Malignant neoplasm of prostate (principal); C79.51 Secondary malignant neoplasm of bone
CPT/HCPCS: 36415; 80053; 84153; 84403; 85025

== ENCOUNTER → 2021-12-17 01:06 | Outpatient (CLI) | payer MEDICARE, SELFPAY ==
--- NOTE | 2021-12-17 | DI.US_ITS ---
Exam(s) US RENAL EXAM: US RENAL CLINICAL HISTORY: WORSENING CHRONIC KIDNEY DISEASE, HX PROSTATE CA, N18.9 TECHNIQUE: Ultrasound of both kidneys performed using standard protocol. COMPARISON: US US ABDOMEN LIMITED from 07/09/2021 FINDINGS: RIGHT KIDNEY: Measures 9.8 cm in length. No cysts evident. Normal cortical thickness and corticomedullary different iation .No solid masses No intrarenal calculi nor hydronephrosis. LEFT KIDNEY: Measures 10.7 cm in length. No cysts evident. Normal cortical thickness and corticomedullary differe ntiaion. No solids masses. No intrarenal calculi nor hydonephrosis. URINARY BLADDER: There is a Lazo catheter in the urinary bladder noted Prevoid volume is 141 cc Postvoid volume is 24 cc No evidence of bladder mass nor diverticuli. Ureterovesical jets: Not identified due to the catheter artifact IMPRESSION: 1. No significant ultrasound findings in the kidneys. No evidence of hydronephrosis in this patient who has a Lazo catheter in the urinary bladder. DATA REPOSITORY:
== END ==
PROVIDERS: PCP Internal Medicine; Visit Provider Internal Medicine
DX: N18.9 Chronic kidney disease, unspecified (principal); Z85.46 Personal history of malignant neoplasm of prostate; Z96.0 Presence of urogenital implants
CPT/HCPCS: 76770

== ENCOUNTER → 2021-12-18 13:48 | Outpatient (BNVA) | payer MEDICARE, SELFPAY | PROVIDERS: PCP Internal Medicine; Referring Provider Internal Medicine; Visit Provider Nurse Practitioner Gerontology | DX: N40.0 Benign prostatic hyperplasia without lower urinary tract symptoms (principal); C61 Malignant neoplasm of prostate; C79.51 Secondary malignant neoplasm of bone; R97.20 Elevated prostate specific antigen [PSA] | CPT/HCPCS: 51702; 96402; J9217 ==

== ENCOUNTER → 2022-01-07 00:53 | Outpatient (CLI) | payer MEDICARE, SELFPAY ==
[2022-01-07 09:55] LABS: Abs Immature Grans 0.02 10^3/uL (0.0-0.06); Absolute Basophil Count 0.02 10^3/uL (0.0-0.2); Absolute Eosinophil Count 0.08 10^3/uL (0.0-0.7); Absolute Lymphocyte Count 0.34 10^3/uL (1.2-3.4); Absolute Monocyte Count 0.45 10^3/uL (0.1-0.8); Absolute Neutrophil Count 3.01 10^3/uL (1.2-6.7); Basophils % 0.5; HCT 34.2 % (40.0-50.0); HGB 10.7 g/dL (13.5-17.5); Immature Grans % 0.5; Lymphocytes % 8.7; MCH 29.4 pg (27.0-33.0); MCHC 31.3 % (32.0-36.0); MCV 94 fL (80-95); MPV 11.3 fL (8.0-11.0); Monocytes % 11.5; Neutrophils % 76.8; Platelet Count 125 10^3/uL (130-400); RBC 3.64 10^6/uL (4.36-5.78); RDW 12.8 % (11.8-14.1); RDW-SD 44.3 fL; WBC 3.92 10^3/uL (4.4-10.8)
[2022-01-07] MEDS: Barium Sulfate 2% W/V-Berry Smoothie 450 ML BTL 900 ML PO (09:56)
[2022-01-07 10:09] LABS: ALT 42 U/L (16-63); AST 28 U/L (15-37); Albumin 4.1 g/dL (3.4-5.0); Alkaline Phosphatase 67 U/L (46-116); Anion Gap 7.3 mmol/L (3-11); BUN 34 mg/dL (7-18); Bilirubin, Total 1.2 mg/dL (0.2-1.0); CO2 27.7 mmol/L (21.0-32.0); CREATININE 1.8 mg/dL (0.70-1.30); Chloride 104 mmol/L (98-107); Glucose 115 mg/dL (74-106); Potassium 4.5 mmol/L (3.5-5.1); Sodium 139 mmol/L (136-145); Total Protein 6.9 g/dL (6.4-8.2)
--- NOTE | 2022-01-07 10:30 | DI.NM_ITS ---
Exam(s) OR BONE SCAN WHOLE BODY GRP EXAM: OR BONE SCAN WHOLE BODY GRP CLINICAL HISTORY: RESTAGING OF METASTATIC PROSTATE CA, METS TO BONE, C61, C79.51. COMPARISON: [facility] BONE SCAN WHOLE BODY GRP from 12/25/2020 TECHNIQUE: Whole body bone scans performed with intravenous infusion of 27.0 millicuries of techneti um 99 labeled methylene diphosphonate. Examination is compared with prior examination of December 25 and again shows areas of increased uptake in the iliac bones and sacrum, findings are slightly les s intense on today's examination than on the prior study. No new areas abnormal uptake identified on whole body imaging. FINDINGS: Apparently mildly decreased intensity of pelvic metastatic lesions, no new lesion seen. IMPRESSION: DATA REPOSITORY:
--- NOTE | 2022-01-07 11:00 | DI.CT_ITS ---
Exam(s) CT CHEST/ABD/PEL WO EXAM: CT CHEST/ABD/PEL WO CLINICAL HISTORY: RESTAGING OF METASTATIC PROSTATE CA, METS TO BONE, C61, C79.51 TECHNIQUE: CT examination of the chest, abdomen, and pelvis was performed with oral contrast admini stration. COMPARISON: CT CT ABDOMEN PELVIS W from 12/25/[address] CHEST WO from 03/20/2021 FINDINGS: Lungs are clear. No pleural effusion. No pleural based mass. There is marked cardiomegaly with gabby ral valve prosthesis. No mediastinal or hilar adenopathy. No axillary or supraclavicular adenopathy. Tracheobronchial april e appears intact. Unremarkable appearance of thoracic aorta and major branch vessels. The liver appears normal with no focal hepatic lesion identified apart from a previously noted left l obe hepatic cyst. Large hiatal hernia noted. Spleen is unremarkable in appearance. Pancreas appears intact. Adrenals appear normal. Kidneys are unremarkable in appearance with no renal mass, hydronephrosis, or nephrolithiasis. Marked urinary bladder wall thickening noted with a Lazo catheter in place. Abdominal aorta and major visceral branches appear intact. No focal bowel pathology. Appendix is normal. No evidence of diverticulitis. No abdominal or pelvic adenopathy. No significant abdominal wall hernia. Multiple predominantly blastic bony lesions of the pelvis and sacrum are again noted, in comparison w ith the prior examination December 2020 these show more clear-cut blastic changes period no definite new lesions identified. Some of the previously identified lesions are less prominent today's examination .. IMPRESSION: Pelvic bony metastases from prostatic carcinoma are again noted, little interval change in appearance , some increased blastic character of some of these lesions is an indeterminate finding and may repre sent interval healing. No other evidence of metastatic disease on scanning of the chest, abdomen, and pelvis. RADIATION DOSE DELIVERED: 1,645.7mGy.cm Total DLP 1,645.7mGy.cm Total DLP !Error CTDIvol RADIATION OPTIMIZATION: All CT scans at this facility use at least one of these dose optimization te chniques: automated exposure control; mA and/or kV adjustment per patient size (includes targeted exa ms where dose is matched to clinical indication); or iterative reconstruction.
[2022-01-13 10:58] LABS: Testosterone, Total <7.0 ng/dL (240-950)
== END ==
PROVIDERS: PCP Internal Medicine; Visit Provider Internal Medicine
DX: C61 Malignant neoplasm of prostate (principal); C79.51 Secondary malignant neoplasm of bone
CPT/HCPCS: 36415; 71250; 78306; 80053; 84153; 84403; 74176; 85025

== ENCOUNTER → 2022-01-22 12:44 | Outpatient (BNVA) | payer MEDICARE, SELFPAY | PROVIDERS: PCP Internal Medicine; Referring Provider Internal Medicine; Visit Provider Nurse Practitioner Gerontology | DX: C61 Malignant neoplasm of prostate (principal); C79.51 Secondary malignant neoplasm of bone; R97.20 Elevated prostate specific antigen [PSA] | CPT/HCPCS: 51702; 96402; J9217 ==

== ENCOUNTER 2022-01-27 10:42 | Outpatient (CLI) | payer MEDICARE, SELFPAY ==
[2022-01-27 10:22] LABS: Abs Immature Grans 0.01 10^3/uL (0.0-0.06); Absolute Basophil Count 0.02 10^3/uL (0.0-0.2); Absolute Eosinophil Count 0.04 10^3/uL (0.0-0.7); Absolute Lymphocyte Count 0.26 10^3/uL (1.2-3.4); Absolute Monocyte Count 0.45 10^3/uL (0.1-0.8); Absolute Neutrophil Count 2.67 10^3/uL (1.2-6.7); Basophils % 0.6; Eosinophils % 1.2; HCT 32.9 % (40.0-50.0); HGB 10.4 g/dL (13.5-17.5); Immature Grans % 0.3; Lymphocytes % 7.5; MCH 28.6 pg (27.0-33.0); MCHC 31.6 % (32.0-36.0); MCV 90 fL (80-95); MPV 11.1 fL (8.0-11.0); Neutrophils % 77.4; Platelet Count 135 10^3/uL (130-400); RBC 3.64 10^6/uL (4.36-5.78); RDW 13.4 % (11.8-14.1); RDW-SD 44.7 fL; WBC 3.45 10^3/uL (4.4-10.8)
[2022-01-27 10:53] LABS: ALT 46 U/L (16-63); AST 33 U/L (15-37); Albumin 3.8 g/dL (3.4-5.0); Alkaline Phosphatase 68 U/L (46-116); Anion Gap 9.2 mmol/L (3-11); BUN 39 mg/dL (7-18); CO2 24.8 mmol/L (21.0-32.0); CREATININE 2.1 mg/dL (0.70-1.30); Calcium 8.6 mg/dL (8.5-10.1); Chloride 105 mmol/L (98-107); Estimated GFR 30.39 (mL/min/1.73m2); Glucose 131 mg/dL (74-106); Potassium 4.5 mmol/L (3.5-5.1); Sodium 139 mmol/L (136-145); Total Protein 6.5 g/dL (6.4-8.2)
[2022-01-28 19:56] LABS: PSA, Ultrasensitive 0.29 ng/mL (<= 7.2)
[2022-02-01 18:53] LABS: Testosterone, Total <7.0 ng/dL (240-950)
== END 2022-01-27 10:43 | disposition home or self-care (01) ==
LOC: LBO 11:02
PROVIDERS: PCP Internal Medicine; Visit Provider Internal Medicine
DX: C61 Malignant neoplasm of prostate (principal); C79.51 Secondary malignant neoplasm of bone
CPT/HCPCS: 36415; 80053; 84153; 84403; 85025

== ENCOUNTER 2022-03-01 21:57 | Emergency (ER) | payer MEDICARE, SELFPAY ==
[2022-03-01 22:07] VITALS: BP 128/65; PULSE 82; RESP 16; TEMP 36.7; O2SAT 98
--- NOTE | 2022-03-01 22:24 | ED.GENADUL_ITS ---
Discharge Plan Disposition Patient Disposition: HOME Condition: Good Discharge Details Clinical Impression: Hematuria Primary Care Provider: Rudolph Ryan ED Provider: Luis Quigley Home Meds and New Rx's Prescriptions: No Action acetaminophen [Tylenol] 325 mg capsule 650 mg PO DAILY PRN PRN Rx Instructions: for pain amiodarone 200 mg tablet 200 mg PO DAILY metoprolol succinate 50 mg tablet extended release 24 hr 25 mg PO BID Rx Instructions: 1/2 tab in morning and 1/2 tab at hs spironolactone 50 mg tablet 50 mg PO DAILY furosemide 40 mg tablet 20 mg PO DAILY Qty: 30 0RF Xarelto 15 mg tablet 15 mg PO DAILY Rx Instructions: must administer with evening meal famotidine [Acid Information Technology Analyst (famotidine)] 20 mg tablet 20 mg PO BID prednisone 5 mg tablet 5 mg PO DAILY Hold Instructions: Home Medication placed on hold at Doctor's office Label Comments: takes one hour after Abiraterone abiraterone 250 mg tablet 500 mg PO DAILY Hold Instructions: Home Medication placed on hold at Doctor's office Rx Instructions: must be taken on empty stomach, at least 1 hr before or 2 hrs after a meal/food aspirin [Aspir-81] 81 MG tablet,delayed release (DR/EC) 81 mg PO .QOD Label Comments: 06/14/17 pt last day taking this is 06/17/17 pt aware, DCW atorvastatin [Lipitor] 40 MG tablet 40 mg PO HS losartan 50 MG tablet 50 mg PO DAILY tamsulosin 0.4 mg capsule 0.8 mg PO DAILY Discharge Instructions Instructions: Hematuria (ED) Additional Instructions: At this time he still has some hematuria, but thankfully there is no evidence of urinary clots or retention. Please continue to change your back frequently. Follow-up closely with Dr. Lazcano. If you have any significant pressure or pain that recurs please return immediately for reassessment. If you notice any worsening of your symptoms, or any new symptoms such as vomiting, diarrhea, fever, chills, shortness of breath, chest pain, numbness, weakness, or fainting , please return immediately to the emergency department for reevaluation. Please follow up with your primary care provider as soon as possible for reassessment and reevaluation. As always, it was a pleasure participating in your medical care today. Referrals: Gasper Lazcano MD [ [facility] STAFF PHYSICIAN] - Rudolph Ryan [Primary Care Provider] - Medical Decision Making This is an 81-year-old male with a past medical history of a chronic indwelling Lazo catheter, who is also on Xarelto for atrial fibrillation, presents today for blood in his Lazo catheter bag. He has a history of prostate cancer, and has had blood intermittently in the past, however last night the patient noted a lack of flow in the Lazo catheter bag, in conjunction with a significant amount of pressure and mild pain in the suprapubic region. This eventually got to the point where the pain immediately resolved, and he had a notable flow into the Lazo catheter bag. There was blood noted in it at that time. The blood has continued throughout today. He has had normal urinary output. The urine itself has been pink-tinged. Patient denies any pain whatsoever now. He denies any weakness or lightheadedness. He does admit to having symptoms like this similarly in the past but to a lesser degree. No other complaints at this time. No other modifying factors. Exam demonstrates well-appearing male, no urinary retention, no suprapubic tenderness, Lazo catheter itself appears in place and unremarkable and nontender. Small amount of pink/maroonish blood is noted in the Lazo bag, no clots whatsoever. I suspect the patient does have mild ulcer a mild cause of bleeding and that there was a clot last night which is subsequently resolved. The patient has no retention now, feels excellent and is draining well into the Lazo catheter bag, I do not see an indication for changing of the catheter at this time. No symptoms of infection of fever, chills, tachycardia or pain. Patient is stable at this time for discharge with close follow-up with Dr. Lazcano. He does have a scheduled appointment this week, but we will see if we can move it earlier. Discussed red flags which to return. Patient has been given a bed bag as his last one broke. I have extensively reviewed the treatme nt plan and discharge instructions with the patient and their family. I have addressed all patient concerns at this time. The patient and family was made aware of what symptoms to monitor for that would warrant a return to the emergency department. Discussed the plan with the patient and family, they demonstrate verbal understanding and agreement with our assessment and plan at this time. The documentation in this chart was dictated using Dragon dictation software. Please excuse any dictation errors. HPI General Date/Time Provider Initiated Documentation: 03/01/22 22:03 . HPI Narrative: This is an 81-year-old male with a past medical history of a chronic indwelling Lazo catheter, who is also on Xarelto for atrial fibrillation, presents today for blood in his Lazo catheter bag. He has a history of prostate cancer, and has had blood intermittently in the past, however last night the patient noted a lack of flow in the Lazo catheter bag, in conjunction with a significant amount of pressure and mild pain in the suprapubic region. This eventually got to the point where the pain immediately resolved, and he had a notable flow into the Lazo catheter bag. There was blood noted in it at that time. The blood has continued throughout today. He has had normal urinary output. The urine itself has been pink-tinged. Patient denies any pain whatsoever now. He denies any weakness or lightheadedness. He does admit to having symptoms like this similarly in the past but to a lesser degree. No other complaints at this time. No other modifying factors. Related Data Home Medications Medication Instructions Recorded Confirmed aspirin 81 mg tablet,delayed 81 mg PO .QOD 12/18/15 10/09/21 release (Aspir-) atorvastatin 40 mg tablet (Lipitor) 40 mg PO HS 12/20/15 10/09/21 losartan 50 mg tablet 50 mg PO DAILY 06/12/16 10/09/21 famotidine 20 mg tablet (Acid 20 mg PO BID 07/02/20 10/09/21 Information Technology Analyst (famotidine)) rivaroxaban 15 mg tablet (Xarelto) 15 mg PO DAILY 07/02/20 10/09/21 tamsulosin 0.4 mg capsule 0.8 mg PO DAILY 09/25/20 10/09/21 prednisone 5 mg tablet 5 mg PO DAILY 04/08/21 12/18/21 acetaminophen 325 mg capsule 650 mg PO DAILY PRN PRN 07/10/21 10/09/21 (Tylenol) amiodarone 200 mg tablet 200 mg PO DAILY 07/10/21 10/09/21 metoprolol succinate 50 mg 25 mg PO BID 07/10/21 10/09/21 tablet,extended release 24 hr spironolactone 50 mg tablet 50 mg PO DAILY 07/10/21 10/09/21 abiraterone 250 mg tablet 500 mg PO DAILY 08/11/21 12/18/21 furosemide 40 mg tablet 20 mg PO DAILY #30 tab-caps 12/18/21 12/18/21 Previous Rx's Medication Instructions Recorded furosemide 40 mg tablet 20 mg PO DAILY #30 tab-caps 12/18/21 Allergies Allergy/AdvReac Type Severity Reaction Status Date / Time lisinopril AdvReac Intermediate cough Verified 10/09/21 12:51 spironolactone AdvReac Hyperkalemi Verified 10/09/21 12:51 a General Stated Complaint: Urinary EUSEBIO: 3 Review of Systems All systems reviewed & are unremarkable except as noted in HPI and below PFSH All Active Problems Hematuria (Acute) Cardiomyopathy (Acute) Ventricular tachycardia (Chronic) Thrombocytopenia (Chronic) Anemia (Chronic) NSTEMI (non-ST elevated myocardial infarction) (Acute) Coronary artery disease (Chronic) Cirrhosis (Acute) Ventricular tachycardia (Chronic) Bone metastasis (Acute) Prostate cancer (Chronic) Incarcerated right inguinal hernia (Acute) Tricuspid regurgitation (Acute) Acute urinary retention (Acute) Urinary retention due to benign prostatic hyperplasia (Acute) Elevated PSA, greater than or equal to 20 ng/ml (Acute) BPH (benign prostatic hyperplasia) (Chronic) Paroxysmal atrial fibrillation (Chronic) Medical History A-fib Anemia Anticoagulation adequate Ascites Bladder outlet obstruction Cardiorenal syndrome Cholelithiasis Congestive heart failure Cor pulmonale Corns and callus GERD (gastroesophageal reflux disease) History of alcohol abuse Hx of congestive heart failure Hx of myocardial infarction 2007 Hyperlipidemia Inguinal hernia Jaundice Lateral femoral cutaneous entrapment syndrome Myocardial infarct Nail disorder Nocturnal leg cramps Overweight Pain, joint, knee, left Rectal bleeding Surgical History Hx of CABG Hx of cataract surgery Hx of colonoscopy Hx of inguinal hernia surgery S/P CABG (coronary artery bypass graft) 2009 Social History Smoking/Tobacco Use Status: Former Tobacco Use Quit Date: 07/12/89 Tobacco: How many years used: 15 Smoking risk assessment performed?: Yes Alcohol Intake: former Drug use: Never Substance use type: does not use Do you feel safe at home: Yes Do you feel safe in your relationship?: Yes Exam Narrative Exam Narrative: 1.Const: Well-nourished, Well-developed, appearing stated age 2.Eyes: PERRL, no conjunctival injection, and symmetrical lids. 3.ENT: Atraumatic external nose and ears. Moist MM. Neck: Symmetric, trachea midline, No thyromegaly. 4.CVS: +S1/S2, No murmurs or gallops. Peripheral pulses 2+ and equal in all extremities. Brisk capillary refill in all extremities. 5.RESP: Unlabored respiratory effort. Clear to auscultation bilaterally. No wheezes rales or rhonchi 6.GI: Soft, Nontender/Nondistended, No hepatosplenomegaly. No guarding or rebound. No pain or tenderness in the suprapubic region. No evidence of distention of the bladder. Lazo catheter appears in place, no blood around the urethral meatus. No tenderness in that area. 7.MSK: Normocephalic/Atraumatic, Extremities w/o deformity or ttp No cyanosis or clubbing, Normal movement of all extremities 8.Skin: Warm, Dry. No rashes or lesions. 9.Neuro: junior database administrator II-XII grossly intact. Sensation grossly intact, no focal neurologic deficits. 10.Psych: (AAO) x3. Appropriate mood and affect Course Vital Signs Vital signs: Vital Signs Temperature 36.7 C 03/01/22 22:07 Pulse 82 03/01/22 22:07 Respiratory Rate 16 03/01/22 22:07 Blood Pressure 128/65 03/01/22 22:07 Pulse Oximetry 98 03/01/22 22:07 Temperature 36.7 C 03/01/22 22:07 Temperature Source Skin 03/01/22 22:07 Pulse 82 03/01/22 22:07 Respiratory Rate 16 03/01/22 22:07 Blood Pressure 128/65 03/01/22 22:07 Pulse Oximetry 98 03/01/22 22:07 Pain Level 0 03/01/22 22:07
== END 2022-03-01 22:42 | disposition home or self-care (01) ==
PROVIDERS: Emergency Provider Student in an Organized Health Care Education/Training Program; PCP Internal Medicine
DX: R31.9 Hematuria, unspecified (principal); Z87.891 Personal history of nicotine dependence
CPT/HCPCS: 99281; 99282

== ENCOUNTER → 2022-03-03 10:54 | Outpatient (CLI) | payer MEDICARE, SELFPAY ==
--- NOTE | 2022-03-03 16:10 | DI.CT_ITS ---
Exam(s) CT ABDOMEN PELVIS WO EXAM: CT ABDOMEN PELVIS WO CLINICAL HISTORY: abd pain with distention. R10.9 ABD PAIN R14.0 DISTENSION. TECHNIQUE: Imaging Protocol: Axial computed tomography images with coronal and sagittal reformatted images were created and reviewed CONTRAST MATERIAL: Intravenous: none Oral: Yes. Oral contrast was administered for bowel opacification. COMPARISON: CT CT CHEST/ABD/PEL WO from 01/07/2022 FINDINGS: VISUALIZED LUNG BASES: Gross cardiomegaly and sternotomy wires again noted as well as prosthetic mitr al valve. The IVC is again noted be large as are the intrahepatic veins, these findings consistent w ith an element of right heart failure. Small right pleural effusion now evident. Hiatal hernia agai n noted small-moderate size, unchanged.. ABDOMEN: There is now mild perihepatic ascites as well as some free fluid in the dependent aspect the pelvis, not previously present. LIVER: Dilated intrahepatic systemic veins due to right heart failure. There is a well-defined hypod ensity in left hepatic lobe again noted measuring 2.5 by 1.5 cm., unchanged cyst. GALLBLADDER/BILIARY: Multiple gallstones are again noted layering in the nondistended gallbladder. T he gallbladder is not edematous. CBD is not dilated. PANCREAS: No evidence of pancreatic mass nor dilatation of the pancreatic duct. SPLEEN: Mild splenomegaly. Slightly prominent diameter of the splenic and portal veins. No obvious recanalized umbilical vein. ADRENALS: There are no significant adrenal masses. KIDNEYS:No cysts evident. No solid renal masses. No calculi nor hydronephrosis. . ABDOMINAL AORTA: Abdominal aorta is not enlarged. LYMPH NODES: There is no retroperitoneal nor paraaortic adenopathy. ABDOMINAL WALL/GI: UMBILICAL hernia noted which contains fat and appears to be part of a small-bowel loop. There does not appear to be transition point at this level. No obvious bowel obstruction torres selvin, there is some streaking in the subcutaneous fat around this umbilical hernia. \ PELVIS: LYMPH NODES: There is no intrapelvic nor inguinal adenopathy. GI: there is a left inguinal hernia. this contains density is previously seen. does not appear to c ontain an obvious bowel loop. possible undescended testicle. this measures.No evidence of appendici tis. No obvious diverticulitis. URINARY BLADDER: Lazo catheter is noted in the bladder. Bladder is collapsed. REPRODUCTIVE: Prostate not enlarged. Seminal vesicles unremarkable. OSSEOUS: Sclerotic bone lesions again noted. No fractures. IMPRESSION: 1. There is anterior abdominal wall hernia which appears to contain part of the small bowel loop. Al though there is no transition point at this level, this does appear entrapped within the small umbili nanda hernia. Surgical consultation recommended. 2. Also density within the left inguinal canal, either some fluid or possible undescended testicle. This does not appear to be a bowel loop in the left inguinal canal. 3. Mild ascites in the abdomen and pelvis. Splenomegaly. Enlarged IVC and intrahepatic systemic vei ns are most probably related to right heart failure, given size of the heart here. 4. Multiple gallstones again noted. No obvious acute cholecystitis nor significant dilatation of th e biliary tree. 5. Sclerotic bone lesions in the iliac bones and sacrum again noted. Suspicious for blastic metasta tic disease. Correlation any history of prostate cancer recommended. Prostate itself appears normal size. Lazo catheter again noted in the urinary bladder. The bladder is collapsed. Study 1st read by [facility] Final report called by myself to ER physician 03/04/2022 a.m. RADIATION DOSE DELIVERED: 1,050.76mGy.cm Total DLP DATA REPOSITORY: All CT scans at this facility are submitted to the National Radiology Data Registry (NRDR) Dose Index Registry (DIR) with the [employer] (A[employer]). RADIATION OPTIMIZATION: All CT scans at this facility use at least one of these dose optimization te chniques: automated exposure control; mA and/or kV adjustment per patient size (includes targeted exa ms where dose is matched to clinical indication); or iterative reconstruction.
[2022-03-03] MEDS: Breeza Beverage 473 ML BTL 946 ML PO (18:54)
[2022-03-03] MEDS: Gastrografin 120 ML BTL PO (19:45)
--- NOTE | 2022-03-03 19:58 | DI.VRAD_ITS ---
PROCEDURE INFORMATION: Exam: CT Abdomen And Pelvis Without Contrast Exam date and time: 03/03/2022 7:03 PM Age: 81 years old Clinical indication: Other: Abd pain with distention. Prior surgery; Surgery date: 6+ months; Surgery type: Hernia repair; Patient HX: Prostate CA TECHNIQUE: Imaging protocol: Computed tomography of the abdomen and pelvis without contrast. Radiation optimization: All CT scans at this facility use at least one of these dose optimization techniques: automated exposure control; mA and/or kV adjustment per patient size (includes targeted exams where dose is matched to clinical indication); or iterative reconstruction. Other contrast: Oral, gastrografin, 900; COMPARISON: CT CHEST/ABD/PEL WO 01/07/2022 11:28 AM FINDINGS: Pleural spaces: Small bilateral pleural effusions, larger on the right. Heart: Heart only partially visualized. Prominent cardiomegaly with multichamber dilatation. Apparent prior mitral valve annuloplasty. Coronary artery calcification. Enlarged inferior vena cava and hepatic veins suspicious for right heart failure. Mediastinal space: Small hiatal hernia with adjacent herniated ascites. Liver: Small indeterminate hypoattenuating hepatic lesion, incompletely characterized but most likely a small cyst or hemangioma. Mild nodularity of hepatic contour, nonspecific but seen in the setting of hepatic cirrhosis. Clinical correlation recommended. Gallbladder and bile ducts: Gallbladder partially decompressed. Gallstones. No biliary dilatation. Pancreas: Moderate atrophy of the pancreas. Mild hazy fat stranding adjacent to the pancreas with trace fluid tracking along the right anterior pararenal fascia. Spleen: Splenomegaly, 15 cm craniocaudal dimension. Adrenal glands: Normal appearing adrenal glands. Kidneys and ureters: Grossly unremarkable unenhanced kidneys. No radiopaque urinary tract stones, hydronephrosis, or evidence of recent stone passage. Stomach and bowel: Stomach partially distended with oral contrast. No small bowel dilatation to suggest obstruction. Fluid and contrast material throughout the cecum, ascending colon, and transverse colon. Colon largely well evacuated of fecal material. Diverticulosis through the descending and sigmoid segments. No evidence of diverticulitis or colitis. Appendix: Normal appendix, partially obscured. Intraperitoneal space: Small amount of ascites. No free air. Vasculature: Normal caliber abdominal aorta. Lymph nodes: No pathologically enlarged mesenteric, retroperitoneal, or pelvic sidewall lymph nodes. Urinary bladder: Urinary bladder collapsed around a Lazo catheter. Reproductive: Prostate gland not well demonstrated. Grossly normal-appearing seminal vesicles. Bones/joints: No acute fracture seen among the bones of the abdomen or pelvis. Spinal degenerative change with discogenic degeneration and anterior osteophytes at several levels. Sclerotic bone lesions redemonstrated in the posterior dayana and in the sacrum, suspicious for metastatic bone disease in a patient with prostate cancer. Soft tissues: Mild gynecomastia partially demonstrated on the right, seen to be bilateral on the comparison exam from December. Small fat and ascites containing ventral hernia at the umbilicus. Moderate-sized fat and ascites containing left inguinal hernia extending into the left hemiscrotum. IMPRESSION: 1. Small hiatal hernia. No acute bowel pathology demonstrated. 2. Mild nodularity of hepatic contour, nonspecific but commonly seen in the setting of hepatic cirrhosis. Clinical correlation recommended. 3. Splenomegaly, 15 cm. 4. Small amount of ascites with ascites extending into a hiatal hernia, an umbilical hernia, and a left inguinal hernia. Small bilateral pleural effusions, larger on the right. Clinical correlation recommended to exclude anasarca. 5. Mild hazy fat stranding adjacent to the pancreas with trace fluid tracking along the right anterior pararenal fascia. Third spacing of fluid into the retroperitoneal space is suspected given other findings; however, correlation with laboratory values is recommended to definitively exclude the possibility of pancreatitis. 6. Gallbladder partially decompressed. Multiple calcified gallstones. No biliary dilatation. No obstructing common duct stones 7. Heart only partially visualized. Prominent cardiomegaly with multichamber dilatation and enlargement of the inferior vena cava and hepatic veins suggesting right heart failure. 8. Sclerotic bone lesions redemonstrated in the posterior dayana and in the sacrum, suspicious for metastatic bone disease in a patient with prostate cancer. Dictated and Authenticated by: Silviano Zuleta MD. Ordering:DIEGO Jackman MD
== END ==
PROVIDERS: PCP Internal Medicine; Visit Provider Urology
DX: N40.1 Benign prostatic hyperplasia with lower urinary tract symptoms (principal); R33.8 Other retention of urine; R97.20 Elevated prostate specific antigen [PSA]; R14.0 Abdominal distension (gaseous); R31.9 Hematuria, unspecified; C61 Malignant neoplasm of prostate; C79.51 Secondary malignant neoplasm of bone; K42.9 Umbilical hernia without obstruction or gangrene; T83.091A Other mechanical complication of indwelling urethral catheter, initial encounter
CPT/HCPCS: 36415; 51702; 80053; 83690; 99281; 74176; 83605; 83735; 85025; 99282

== ENCOUNTER 2022-03-03 16:10 | Outpatient (REF) | payer MEDICARE, SELFPAY ==
[2022-03-03 16:25] LABS: CREATININE 2.2 mg/dL (0.70-1.30)
== END 2022-03-03 16:11 | disposition home or self-care (01) ==
LOC: LBN 16:10
PROVIDERS: PCP Internal Medicine; Visit Provider Urology
DX: R10.9 Unspecified abdominal pain (principal); R19.00 Intra-abdominal and pelvic swelling, mass and lump, unspecified site
CPT/HCPCS: 82565

== ENCOUNTER 2022-03-03 20:12 | Emergency (ER) | payer MEDICARE, SELFPAY ==
[2022-03-03 20:31] VITALS: BP 126/69; PULSE 71; RESP 18; TEMP 36.4; O2SAT 98
[2022-03-03 21:09] LABS: Lactate 0.6 mmol/L (0.6-1.4)
[2022-03-03 21:10] LABS: Abs Immature Grans 0.03 10^3/uL (0.0-0.06); Absolute Basophil Count 0.02 10^3/uL (0.0-0.2); Absolute Eosinophil Count 0.05 10^3/uL (0.0-0.7); Absolute Lymphocyte Count 0.25 10^3/uL (1.2-3.4); Absolute Monocyte Count 0.58 10^3/uL (0.1-0.8); Absolute Neutrophil Count 4.15 10^3/uL (1.2-6.7); Basophils % 0.4; HCT 30.2 % (40.0-50.0); HGB 9.8 g/dL (13.5-17.5); Immature Grans % 0.6; Lymphocytes % 4.9; MCHC 32.5 % (32.0-36.0); MCV 83 fL (80-95); Monocytes % 11.4; Neutrophils % 81.7; Platelet Count 113 10^3/uL (130-400); RBC 3.63 10^6/uL (4.36-5.78); RDW 15.4 % (11.8-14.1); RDW-SD 46.5 fL; WBC 5.08 10^3/uL (4.4-10.8)
[2022-03-03 21:29] LABS: ALT 42 U/L (16-63); AST 38 U/L (15-37); Albumin 3.7 g/dL (3.4-5.0); Alkaline Phosphatase 150 U/L (46-116); Anion Gap 9.4 mmol/L (3-11); BUN 36 mg/dL (7-18); Bilirubin, Total 1.1 mg/dL (0.2-1.0); CO2 23.6 mmol/L (21.0-32.0); Calcium 8.6 mg/dL (8.5-10.1); Chloride 101 mmol/L (98-107); Estimated GFR 32.15 (mL/min/1.73m2); Glucose 116 mg/dL (74-106); Lipase 71 U/L (73-393); Magnesium 2.2 mg/dL (1.8-2.4); Potassium 4.7 mmol/L (3.5-5.1); Sodium 134 mmol/L (136-145); Total Protein 7.1 g/dL (6.4-8.2)
--- NOTE | 2022-03-03 22:16 | ED.GENADUL_ITS ---
Discharge Plan Disposition Patient Disposition: HOME Condition: Improving Discharge Details Clinical Impression: Acute urinary retention Primary Care Provider: Rudolph Ryan ED Provider: uRfus Ndiaye Home Meds and New Rx's Prescriptions: No Action acetaminophen [Tylenol] 325 mg capsule 650 mg PO DAILY PRN PRN Rx Instructions: for pain amiodarone 200 mg tablet 200 mg PO DAILY metoprolol succinate 50 mg tablet extended release 24 hr 25 mg PO BID Rx Instructions: 1/2 tab in morning and 1/2 tab at hs spironolactone 50 mg tablet 50 mg PO DAILY furosemide 40 mg tablet 20 mg PO DAILY Qty: 30 0RF Xarelto 15 mg tablet 15 mg PO DAILY Rx Instructions: must administer with evening meal famotidine [Acid Crossing Watchman (famotidine)] 20 mg tablet 20 mg PO BID prednisone 5 mg tablet 5 mg PO DAILY Hold Instructions: Home Medication placed on hold at Doctor's office Label Comments: takes one hour after Abiraterone abiraterone 250 mg tablet 500 mg PO DAILY Hold Instructions: Home Medication placed on hold at Doctor's office Rx Instructions: must be taken on empty stomach, at least 1 hr before or 2 hrs after a meal/fo od aspirin [Aspir-81] 81 MG tablet,delayed release (DR/EC) 81 mg PO .QOD Label Comments: 06/14/17 pt last day taking this is 06/17/17 pt aware, DCW atorvastatin [Lipitor] 40 MG tablet 40 mg PO HS losartan 50 MG tablet 50 mg PO DAILY tamsulosin 0.4 mg capsule 0.8 mg PO DAILY Discharge Instructions Instructions: Urinary Retention in Men (ED) Additional Instructions: At this time I feel your abdominal pain earlier was secondary to your urinary retention. Your CT scan did show some abnormal findings but your labs are not worrisome at this time. It is recommended due to some abnormalities noted on CT scan that you remain on a clear liquid diet for the next 24 hours and then if you remain pain-free you may slowly advance food intake as tolerated. If you develop any significant abdominal pain nausea vomiting, fever, or worsening of condition return immediately to the emergency department for reassessment Discharge Data Discharge Date/Time-TO BE ENTERED AT DEPARTURE: 03/03/22 22:28 Medical Decision Making Patient presenting to the emergency department for concerning findings on CT scan. Patient reports that he has been having urinary issues which after receiving a larger Lazo by urologist today fully resolve his issues. Patient states that he is pain-free with no nausea vomiting diarrhea and feeling significantly better than he had been. Physical exam is benign and patient has soft nontender abdomen with no rigidity, no guarding, no focal findings. We w ill plan on checking labs due to patient being sent by urologist due to potential concerning finding of pancreatitis on CT scan . Reviewed patient's labs which do show a chronic anemia that is slightly worsened but not significantly concerning compared to previous findings, lipase is unremarkable at 71, CMP shows sodium of 134, BUN of 36 with creatinine of 2 which again is near patient's baseline, total bilirubin is slightly elevated at 1.1 with AST of 38. Patient's alk phos is 150 but does have history of bone metastasis. Given that patient is improving significantly from previously when he had pain discomfort I do feel that patient is able to be safely discharged given no worrisome finding. Will place patient on clear liquid diet for 24 hours with close monitoring of symptoms and patient and significant other state clear understanding for return and follow-up precautions for worsening of condition. After discussion of diagnosis and plan of care patient has no further needs, questions, or concerns and states clear understanding to return to the emergency department for any worsening symptoms. This documentation was generated using [employer] dictation system, please disregard any oddities of phrase or misspellings. HPI General Mode of arrival: ambulatory . Date/Time Provider Initiated Documentation: 03/03/22 20:35 . Limitations to Documentation: no limitations . Information obtained by: patient, family, RN notes reviewed and old records reviewed . History of Present Illness 81 year old M presents to the emergency department with the chief complaint of Abnormal CT scan , Quality is described as other (denies pain), Patient notes no other symptoms.. Related Data Home Medications Medication Instructions Recorded Confirmed aspirin 81 mg tablet,delayed 81 mg PO .QOD 12/18/15 10/09/21 release (Aspir-) atorvastatin 40 mg tablet (Lipitor) 40 mg PO HS 12/20/15 10/09/21 losartan 50 mg tablet 50 mg PO DAILY 06/12/16 10/09/21 famotidine 20 mg tablet (Acid 20 mg PO BID 07/02/20 10/09/21 Crossing Watchman (famotidine)) rivaroxaban 15 mg tablet (Xarelto) 15 mg PO DAILY 07/02/20 10/09/21 tamsulosin 0.4 mg capsule 0.8 mg PO DAILY 09/25/20 10/09/21 prednisone 5 mg tablet 5 mg PO DAILY 04/08/21 12/18/21 acetaminophen 325 mg capsule 650 mg PO DAILY PRN PRN 07/10/21 10/09/21 (Tylenol) amiodarone 200 mg tablet 200 mg PO DAILY 07/10/21 10/09/21 metoprolol succinate 50 mg 25 mg PO BID 07/10/21 10/09/21 tablet,extended release 24 hr spironolactone 50 mg tablet 50 mg PO DAILY 07/10/21 10/09/21 abiraterone 250 mg tablet 500 mg PO DAILY 08/11/21 12/18/21 furosemide 40 mg tablet 20 mg PO DAILY #30 tab-caps 12/18/21 12/18/21 Previous Rx's Medication Instructions Recorded furosemide 40 mg tablet 20 mg PO DAILY #30 tab-caps 12/18/21 Allergies Allergy/AdvReac Type Severity Reaction Status Date / Time lisinopril AdvReac Intermediate cough Verified 10/09/21 12:51 spironolactone AdvReac Hyperkalemi Verified 10/09/21 12:51 a General Stated Complaint: GenMedical EUSEBIO: 4 Review of Systems Constitutional Constitutional: Denies chills, Denies fever(s) and Denies poor appetite ENT Ears, Nose, Mouth, and Throat: Denies sore throat Cardiovascular Cardiovascular: Denies chest pain and Denies dyspnea Respiratory Respiratory: Denies cough and Denies dyspnea Gastrointestinal Gastrointestinal: Reports as per HPI, Denies abdominal pain, Denies melena, Denies change in bowel habits, Denies constipation, Denies diarrhea, Denies nausea and Denies vomiting Genitourinary Genitourinary: Reports hematuria, Denies difficulty urinating, Denies urinary hesitancy, Denies urinary incontinence, Denies urinary urgency and Reports other (Urinary symptoms/pain resolved after Lazo placement) Musculoskeletal Musculoskeletal: Denies back pain Integumentary/Breasts Skin/Breast: Denies rash PFSH All Active Problems (Updated 03/03/22 @ 22:23 by Rufus Ndiaye NP) Abdominal distention (Acute) Hematuria (Acute) Cardiomyopathy (Acute) Ventricular tachycardia (Chronic) Thrombocytopenia (Chronic) Anemia (Chronic) NSTEMI (non-ST elevated myocardial infarction) (Acute) Coronary artery disease (Chronic) Cirrhosis (Acute) Ventricular tachycardia (Chronic) Bone metastasis (Acute) Prostate cancer (Chronic) Incarcerated right inguinal hernia (Acute) Tricuspid regurgitation (Acute) Acute urinary retention (Acute) Urinary retention due to benign prostatic hyperplasia (Acute) Elevated PSA, greater than or equal to 20 ng/ml (Acute) BPH (benign prostatic hyperplasia) (Chronic) Paroxysmal atrial fibrillation (Chronic) Medical History A-fib Anemia Anticoagulation adequate Ascites Bladder outlet obstruction Cardiorenal syndrome Cholelithiasis Congestive heart failure Cor pulmonale Corns and callus GERD (gastroesophageal reflux disease) History of alcohol abuse Hx of congestive heart failure Hx of myocardial infarction 2007 Hyperlipidemia Inguinal hernia Jaundice Lateral femoral cutaneous entrapment syndrome Myocardial infarct Nail disorder Nocturnal leg cramps Overweight Pain, joint, knee, left Rectal bleeding Surgical History Hx of CABG Hx of cataract surgery Hx of colonoscopy Hx of inguinal hernia surgery S/P CABG (coronary artery bypass graft) 2009 Social History Smoking/Tobacco Use Status: Former Tobacco Use Quit Date: 07/12/89 Tobacco: How many years used: 15 Smoking risk assessment performed?: Yes Alcohol Intake: former Drug use: Never Substance use type: does not use Do you feel safe at home: Yes Do you feel safe in your relationship?: Yes Exam Const General: cooperative Orientation: alert, awake and oriented x3 Resp Effort & Inspection: normal respiratory effort and able to speak in complete sentences Auscultation: clear to auscultation bilaterally Cardio Rate: regular rate Rhythm: regular rhythm Heart Sounds: S1 normal and S2 normal GI Palpation: soft, not firm, no guarding, no masses, no pulsatile masses, not rigid, no splenomegaly and nontender Auscultation: normal bowel sounds General: No CVA tenderness Back/Spine/Pelvis Back: no CVA tenderness Neuro General: patient alert, patient awake, patient oriented x3, gait normal and moves all extremities Course Vital Signs Vital signs: Vital Signs Temperature 36.4 C L 03/03/22 20:31 Pulse 71 03/03/22 20:31 Respiratory Rate 18 03/03/22 20:31 Blood Pressure 126/69 03/03/22 20:31 Pulse Oximetry 98 03/03/22 20:31 Temperature 36.4 C L 03/03/22 20:31 Pulse 71 03/03/22 20:31 Respiratory Rate 18 03/03/22 20:31 Blood Pressure 126/69 03/03/22 20:31 Blood Pressure Position Sitting 03/03/22 20:31 Pulse Oximetry 98 03/03/22 20:31 Pain Level 0 03/03/22 20:31 Lab/Test Results Lab/Test Results: Laboratory Tests Range/Units 03/03/22 03/03/22 03/03/22 21:00 21:00 21:00 WBC (4.4-10.8) 10^3/uL 5.08 RBC (4.36-5.78) 10^6/uL 3.63 L Hgb (13.5-17.5) g/dL 9.8 L Hct (40.0-50.0) % 30.2 L MCV (80-95) fL 83 MCH (27.0-33.0) pg 27.0 MCHC (32.0-36.0) % 32.5 RDW (11.8-14.1) % 15.4 H Plt Count (130-400) 10^3/uL 113 L MPV (8.0-11.0) fL 12.0 H Immature Gran % 0.6 Neutrophils % 81.7 Lymphocytes % 4.9 Monocytes % 11.4 Eosinophils % 1.0 Basophils % 0.4 Nucleated RBC % (0.0-0.3) % 0.0 Absolute Neutrophils (1.2-6.7) 10^3/uL 4.15 Absolute Lymphocytes (1.2-3.4) 10^3/uL 0.25 L Absolute Monocytes (0.1-0.8) 10^3/uL 0.58 Absolute Eosinophils (0.0-0.7) 10^3/uL 0.05 Absolute Basophils (0.0-0.2) 10^3/uL 0.02 VBG Lactate (0.6-1.4) mmol/L 0.6 Sodium (136-145) mmol/L 134 L Potassium (3.5-5.1) mmol/L 4.7 Chloride (98-107) mmol/L 101 Carbon Dioxide (21.0-32.0) mmol/L 23.6 Anion Gap (3-11) mmol/L 9.4 BUN (7-18) mg/dL 36 H Creatinine (0.70-1.30) mg/dL 2.0 H Estimated GFR/1.73 m2 (mL/min/1.73m2) 32.15 Glucose (74-106) mg/dL 116 H Calcium (8.5-10.1) mg/dL 8.6 Magnesium (1.8-2.4) mg/dL 2.2 Total Bilirubin (0.2-1.0) mg/dL 1.1 H AST (15-37) U/L 38 H ALT (16-63) U/L 42 Alkaline Phosphatase (46-116) U/L 150 H Total Protein (6.4-8.2) g/dL 7.1 Albumin (3.4-5.0) g/dL 3.7 Lipase (73-393) U/L 71
--- NOTE | 2022-03-04 10:21 | W.ED.FU ---
Follow Up Plan: CT of the abdomen pelvis was over read by Dr. Butt noting concern for possible entrapped bowel and inguinal hernia. This over read was called to me this morning. I called and spoke with Mr. Garcia -- he is feeling better today and continues to have no abdominal or groin pain. I reviewed results with him. I advised him to follow-up with his primary care physician or return to the emergency department immediately for any worsening or new concerning symptoms.
== END 2022-03-03 22:28 | disposition home or self-care (01) ==
PROVIDERS: Emergency Provider Nurse Practitioner Family; PCP Internal Medicine
DX: R33.9 Retention of urine, unspecified (principal); D64.89 Other specified anemias; R74.8 Abnormal levels of other serum enzymes; E80.6 Other disorders of bilirubin metabolism; Z87.891 Personal history of nicotine dependence
CPT/HCPCS: 51702; 80053; 83690; 99281; 83605; 83735; 85025; 99282

== ENCOUNTER → 2022-03-05 10:43 | Outpatient (BNVA) | payer MEDICARE, SELFPAY | PROVIDERS: PCP Internal Medicine; Referring Provider Internal Medicine; Visit Provider Nurse Practitioner Gerontology | DX: C61 Malignant neoplasm of prostate (principal); C79.51 Secondary malignant neoplasm of bone; R97.20 Elevated prostate specific antigen [PSA] | CPT/HCPCS: 96402; J9217 ==

== ENCOUNTER 2022-03-17 05:02 | Emergency (ER) | payer MEDICARE, SELFPAY ==
[2022-03-17 05:11] VITALS: BP 125/99; PULSE 92; RESP 16; TEMP 36.6
--- NOTE | 2022-03-17 05:13 | ED.GENADUL_ITS ---
Discharge Plan Disposition Patient Disposition: HOME Condition: Good Discharge Details Chief Complaint: Urinary Clinical Impression: Complication of Lazo catheter Primary Care Provider: Rudolph Ryan ED Provider: Luis Quigley Home Meds and New Rx's Prescriptions: No Action acetaminophen [Tylenol] 325 mg capsule 650 mg PO DAILY PRN PRN Rx Instructions: for pain amiodarone 200 mg tablet 200 mg PO DAILY metoprolol succinate 50 mg tablet extended release 24 hr 25 mg PO BID Rx Instructions: 1/2 tab in morning and 1/2 tab at hs spironolactone 50 mg tablet 50 mg PO DAILY furosemide 40 mg tablet 20 mg PO DAILY Qty: 30 0RF Xarelto 15 mg tablet 15 mg PO DAILY Rx Instructions: must administer with evening meal famotidine [Acid Elementary School Science Teacher (famotidine)] 20 mg tablet 20 mg PO BID prednisone 5 mg tablet 5 mg PO DAILY Hold Instructions: Home Medication placed on hold at Doctor's office Label Comments: takes one hour after Abiraterone abiraterone 250 mg tablet 500 mg PO DAILY Hold Instructions: Home Medication placed on hold at Doctor's office Rx Instructions: must be taken on empty stomach, at least 1 hr before or 2 hrs after a meal/food dexlansoprazole [Dexilant] 60 mg capsule,biphase delayed releas 60 mg PO DAILY aspirin [Aspir-81] 81 MG tablet,delayed release (DR/EC) 81 mg PO .QOD Label Comments: 06/14/17 pt last day taking this is 06/17/17 pt aware, DCW atorvastatin [Lipitor] 40 MG tablet 40 mg PO HS losartan 50 MG tablet 50 mg PO DAILY tamsulosin 0.4 mg capsule 0.8 mg PO DAILY Discharge Instructions Additional Instructions: Please contact Dr. Lazcano and let him know of what occurred tonight. Your Lazo catheter has been replaced and seems to be functioning well. If you notice any worsening of your symptoms, or any new symptoms such as vomiting, diarrhea, fever, chills, shortness of breath, chest pain, numbness, weakness, or fainting , please return immediately to the emergency department for reevaluation. Please follow up with your primary care provider as soon as possible for reassessment and reevaluation. As always, it was a pleasure participating in your medical care today. Referrals: Gasper Lazcano MD [ [facility] STAFF PHYSICIAN] - Rudolph Ryan [Primary Care Provider] - Medical Decision Making This is a pleasant 81-year-old male with a past medical history of A. fib on Xarelto, chronic indwelling Lazo catheter, who presents today for Lazo complication. Patient states that he did notice a small clot last night, and then subsequently he has not been able to adequately urinate. He has had a small amount of fluid in his Lazo bag, and since then he has noticed a significant amount of pressure in the suprapubic region and mild pain. He denies any vomiting or diarrhea. No other complaints. No fever or chills. Exam demonstrates palpable bladder, mild suprapubic tenderness. Lazo catheter is in place, no blood or leaking around the urethral meatus. Will recommend replacement or flushing of Lazo and reassessment Lazo catheter was replaced with a 22-gauge Lazo. Patient tolerated this well. Bladder was drained. Patient has no discomfort. Patient will be discharged home. Discussed red flags which to return. I have extensively reviewed the treatment plan and discharge instructions with the patient and their family. I have addressed all patient concerns at this time. The patient and family was made aware of what symptoms to monitor for that would warrant a return to the emergency department. Discussed the plan with the patient and family, they demonstrate verbal understanding and agreement with our assessment and plan at this time. The documentation in this chart was dictated using [employer] dictation software. Please excuse any dictation errors. HPI General Date/Time Provider Initiated Documentation: 03/17/22 05:06 . HPI Narrative: This is a pleasant 81-year-old male with a past medical history of A. fib on Xarelto, chronic indwelling Lazo catheter, who presents today for Lazo complication. Patient states that he did notice a small clot last night, and then subsequently he has not been able to adequately urinate. He has had a small amount of fluid in his Lazo bag, and since then he has noticed a significant amount of pressure in the suprapubic region and mild pain. He denies any vomiting or diarrhea. No other complaints. No fever or chills. Related Data Home Medications Medication Instructions Recorded Confirmed aspirin 81 mg tablet,delayed 81 mg PO .QOD 12/18/15 10/09/21 release (Aspir-) atorvastatin 40 mg tablet (Lipitor) 40 mg PO HS 12/20/15 10/09/21 losartan 50 mg tablet 50 mg PO DAILY 06/12/16 10/09/21 famotidine 20 mg tablet (Acid 20 mg PO BID 07/02/20 10/09/21 Elementary School Science Teacher (famotidine)) rivaroxaban 15 mg tablet (Xarelto) 15 mg PO DAILY 07/02/20 10/09/21 tamsulosin 0.4 mg capsule 0.8 mg PO DAILY 09/25/20 10/09/21 prednisone 5 mg tablet 5 mg PO DAILY 04/08/21 12/18/21 acetaminophen 325 mg capsule 650 mg PO DAILY PRN PRN 07/10/21 10/09/21 (Tylenol) amiodarone 200 mg tablet 200 mg PO DAILY 07/10/21 10/09/21 metoprolol succinate 50 mg 25 mg PO BID 07/10/21 10/09/21 tablet,extended release 24 hr spironolactone 50 mg tablet 50 mg PO DAILY 07/10/21 10/09/21 abiraterone 250 mg tablet 500 mg PO DAILY 08/11/21 12/18/21 furosemide 40 mg tablet 20 mg PO DAILY #30 tab-caps 12/18/21 12/18/21 dexlansoprazole 60 mg 60 mg PO DAILY 03/09/22 capsule,biphase delayed release (Dexilant) Previous Rx's Medication Instructions Recorded furosemide 40 mg tablet 20 mg PO DAILY #30 tab-caps 12/18/21 Allergies Allergy/AdvReac Type Severity Reaction Status Date / Time lisinopril AdvReac Intermediate cough Verified 10/09/21 12:51 spironolactone AdvReac Hyperkalemi Verified 10/09/21 12:51 a General EUSEBIO: 4 Review of Systems All systems reviewed & are unremarkable except as noted in HPI and below PFSH All Active Problems (Updated 03/17/22 @ 06:09 by Luis Quigley DO) Complication of Lazo catheter (Acute) Iron deficiency anemia (Acute) DNR (do not resuscitate) (Acute) Chronic kidney disease (Chronic) Fatigue (Acute) Screening for colon cancer (Acute) Abdominal distention (Acute) Hematuria (Acute) Cardiomyopathy (Acute) Ventricular tachycardia (Chronic) Thrombocytopenia (Chronic) Anemia (Chronic) NSTEMI (non-ST elevated myocardial infarction) (Acute) Coronary artery disease (Chronic) Cirrhosis (Acute) Ventricular tachycardia (Chronic) Bone metastasis (Acute) Prostate cancer (Chronic) Incarcerated right inguinal hernia (Acute) Tricuspid regurgitation (Acute) Acute urinary retention (Acute) Urinary retention due to benign prostatic hyperplasia (Acute) Elevated PSA, greater than or equal to 20 ng/ml (Acute) BPH (benign prostatic hyperplasia) (Chronic) Paroxysmal atrial fibrillation (Chronic) Medical History A-fib Anemia Anticoagulation adequate Ascites Bladder outlet obstruction Cardiorenal syndrome Cholelithiasis Congestive heart failure Cor pulmonale Corns and callus GERD (gastroesophageal reflux disease) History of alcohol abuse Hx of congestive heart failure Hx of myocardial infarction 2007 Hyperlipidemia Inguinal hernia Inguinal hernia, recurrent Jaundice Lateral femoral cutaneous entrapment syndrome Leg cramps Myocardial infarct Nail disorder Nocturnal leg cramps Overweight Pain, joint, knee, left Rectal bleeding Surgical History Hx of CABG Hx of cataract surgery Hx of colonoscopy Hx of inguinal hernia surgery S/P CABG (coronary artery bypass graft) 2009 Social History Smoking/Tobacco Use Status: Former Tobacco Use Quit Date: 07/12/89 Tobacco: How many years used: 15 Smoking risk assessment performed?: Yes Alcohol Intake: former Drug use: Never Substance use type: does not use Do you feel safe at home: Yes Do you feel safe in your relationship?: Yes Exam Narrative Exam Narrative: 1.Const: Well-nourished, Well-developed, appearing stated age 2.Eyes: PERRL, no conjunctival injection, and symmetrical lids. 3.ENT: Atraumatic external nose and ears. Moist MM. Neck: Symmetric, trachea midline, No thyromegaly. 4.CVS: +S1/S2, No murmurs or gallops. Peripheral pulses 2+ and equal in all extremities. Brisk capillary refill in all extremities. 5.RESP: Unlabored respiratory effort. Clear to auscultation bilaterally. No wheezes rales or rhonchi 6.GI: Soft, Nontender/Nondistended, No hepatosplenomegaly. No guarding or rebound. Lazo catheter in place. No blood around the urethral meatus. No urinary leakage. Small amount of fluid in the Lazo bag. Mild suprapubic tenderness, and a palpable bladder 7.MSK: Normocephalic/Atraumatic, Extremities w/o deformity or ttp No cyanosis or clubbing, Normal movement of all extremities 8.Skin: Warm, Dry. No rashes or lesions. 9.Neuro: wastewater treatment operator II-XII grossly intact. Sensation grossly intact, no focal neurologic deficits. 10.Psych: (AAO) x3. Appropriate mood and affect
[2022-03-17] MEDS: Lidocaine 2% Jelly 6 ML SYR (06:22)
[2022-03-17 06:30] LABS: Bilirubin Negative (Negative); Blood Large (Negative); Clarity Cloudy (Clear); Glucose Negative (Negative); Ketones Negative (Negative); Leukocyte Esterase Moderate (Negative); Nitrite Positive (Negative); Specific Gravity 1.015 (1.005-1.025); pH >= 9.0 (5-8)
[2022-03-17 06:47] LABS: RBC 20-50 HPF (0-2)
[2022-03-17 06:48] LABS: Bacteria Many HPF (Negative); C & S Indicated? Yes; Casts Negative LPF (Negative); Crystals Few Triple Phos HPF (Negative); Epithelial Cells Negative HPF (Negative); Mucus Negative (Negative)
== END 2022-03-17 06:24 | disposition home or self-care (01) ==
PROVIDERS: Emergency Provider Student in an Organized Health Care Education/Training Program; PCP Internal Medicine
DX: T83.098A Other mechanical complication of other urinary catheter, initial encounter (principal); I48.91 Unspecified atrial fibrillation; I50.9 Heart failure, unspecified; I25.2 Old myocardial infarction; Z87.891 Personal history of nicotine dependence; Z79.01 Long term (current) use of anticoagulants; Y83.8 Other surgical procedures as the cause of abnormal reaction of the patient, or of later complication, without mention of misadventure at the time of the procedure
CPT/HCPCS: 51702; 87077; 99283; 81003; 81015; 87086; 87186; 99284

== ENCOUNTER 2022-03-18 21:36 | Emergency (ER) | payer MEDICARE, SELFPAY ==
[2022-03-18 22:06] VITALS: BP 117/58; PULSE 85; RESP 16; TEMP 36.7; O2SAT 97
--- NOTE | 2022-03-18 23:06 | W.ED.GENAD ---
Discharge Plan Disposition Patient Disposition: HOME Condition: Stable Discharge Details Clinical Impression: Urinary tract infection, Malfunction of Lazo catheter Primary Care Provider: Rudolph Ryan ED Provider: Ariella Ortega Home Meds and New Rx's Prescriptions: New cefdinir 300 mg capsule 300 mg PO BID 7 Days Qty: 14 0RF Continued acetaminophen [Tylenol] 325 mg capsule 650 mg PO DAILY PRN PRN Rx Instructions: for pain amiodarone 200 mg tablet 200 mg PO DAILY metoprolol succinate 50 mg tablet extended release 24 hr 25 mg PO BID Rx Instructions: 1/2 tab in morning and 1/2 tab at hs spironolactone 50 mg tablet 50 mg PO DAILY furosemide 40 mg tablet 20 mg PO DAILY Qty: 30 0RF Xarelto 15 mg tablet 15 mg PO DAILY Rx Instructions: must administer with evening meal famotidine [Acid Tele Grout Sewer Line Repairer (famotidine)] 20 mg tablet 20 mg PO BID prednisone 5 mg tablet 5 mg PO DAILY Hold Instructions: Home Medication placed on hold at Doctor's office Label Comments: takes one hour after Abiraterone abiraterone 250 mg tablet 500 mg PO DAILY Hold Instructions: Home Medication placed on hold at Doctor's office Rx Instructions: must be taken on empty stomach, at least 1 hr before or 2 hrs after a meal/food aspirin [Aspir-81] 81 MG tablet,delayed release (DR/EC) 81 mg PO .QOD Label Comments: 06/14/17 pt last day taking this is 06/17/17 pt aware, DCW atorvastatin [Lipitor] 40 MG tablet 40 mg PO HS losartan 50 MG tablet 50 mg PO DAILY tamsulosin 0.4 mg capsule 0.8 mg PO DAILY Discharge Instructions Instructions: Urinary Tract Infection in Men (ED) Additional Instructions: Pressure catheter as needed if its not functioning well Take the antibiotic as prescribed, twice a day You received the first dose this evening you do not need another dose until tomorrow Take yogurt daily while on the antibiotic and follow-up with Dr. Lazcano Discharge Data Discharge Date/Time-TO BE ENTERED AT DEPARTURE: 03/18/22 23:42 Medical Decision Making Catheter was flushed and irrigated well, now draining appropriately Patient appears to have a urinary tract infection, he was started on antibiotics empirically for E. coli which he tested positive for, cefdinir 90 discharged home in stable condition with stable vitals, sensitivities pending Return precautions discussed Will follow up with Dr. Lazcano in the outpatient setting HPI General Date/Time Provider Initiated Documentation: 03/18/22 21:38. HPI Narrative: This 81-year-old gentleman presents with report of leakage around his Lazo catheter. He has a history of BPH and had a Lazo catheter replaced yesterday secondary to obstruction. It was irrigated and this was unsuccessful so was replaced in he denies any pain complaints. Today states patient has not had good output from the Lazo catheter and has been leaking around the site. He states his urine is slightly darker than usual. They have not attempted to irrigate prior to arrival. He denies any flank pain, fever, chills, weakness, dizziness. Related Data Home Medications Medication Instructions Recorded Confirmed aspirin 81 mg tablet,delayed 81 mg PO .QOD 12/18/15 03/18/22 release (Aspir-) atorvastatin 40 mg tablet (Lipitor) 40 mg PO HS 12/20/15 03/18/22 losartan 50 mg tablet 50 mg PO DAILY 06/12/16 03/18/22 famotidine 20 mg tablet (Acid 20 mg PO BID 07/02/20 03/18/22 Tele Grout Sewer Line Repairer (famotidine)) rivaroxaban 15 mg tablet (Xarelto) 15 mg PO DAILY 07/02/20 03/18/22 tamsulosin 0.4 mg capsule 0.8 mg PO DAILY 09/25/20 03/18/22 prednisone 5 mg tablet 5 mg PO DAILY 04/08/21 03/18/22 acetaminophen 325 mg capsule 650 mg PO DAILY PRN PRN 07/10/21 03/18/22 (Tylenol) amiodarone 200 mg tablet 200 mg PO DAILY 07/10/21 03/18/22 metoprolol succinate 50 mg 25 mg PO BID 07/10/21 03/18/22 tablet,extended release 24 hr spironolactone 50 mg tablet 50 mg PO DAILY 07/10/21 03/18/22 abiraterone 250 mg tablet 500 mg PO DAILY 08/11/21 03/18/22 furosemide 40 mg tablet 20 mg PO DAILY #30 tab-caps 12/18/21 03/18/22 cefdinir 300 mg capsule 300 mg PO BID 7 days #14 caps 03/18/22 Previous Rx's Medication Instructions Recorded furosemide 40 mg tablet 20 mg PO DAILY #30 tab-caps 12/18/21 cefdinir 300 mg capsule 300 mg PO BID 7 days #14 caps 03/18/22 Allergies Allergy/AdvReac Type Severity Reaction Status Date / Time lisinopril AdvReac Intermediate cough Verified 03/18/22 22:10 spironolactone AdvReac Hyperkalemi Verified 03/18/22 22:10 a General Stated Complaint: Urinary EUSEBIO: 4 Review of Systems All systems reviewed & are unremarkable except as noted in HPI and below PFSH All Active Problems (Updated 03/18/22 @ 23:18 by MARIUSZ Urban) Urinary tract infection (Acute) Malfunction of Lazo catheter (Acute) Complication of Lazo catheter (Acute) Iron deficiency anemia (Acute) DNR (do not resuscitate) (Acute) Chronic kidney disease (Chronic) Fatigue (Acute) Screening for colon cancer (Acute) Abdominal distention (Acute) Hematuria (Acute) Cardiomyopathy (Acute) Ventricular tachycardia (Chronic) Thrombocytopenia (Chronic) Anemia (Chronic) NSTEMI (non-ST elevated myocardial infarction) (Acute) Coronary artery disease (Chronic) Cirrhosis (Acute) Ventricular tachycardia (Chronic) Bone metastasis (Acute) Prostate cancer (Chronic) Incarcerated right inguinal hernia (Acute) Tricuspid regurgitation (Acute) Acute urinary retention (Acute) Urinary retention due to benign prostatic hyperplasia (Acute) Elevated PSA, greater than or equal to 20 ng/ml (Acute) BPH (benign prostatic hyperplasia) (Chronic) Paroxysmal atrial fibrillation (Chronic) Medical History A-fib Anemia Anticoagulation adequate Ascites Bladder outlet obstruction Cardiorenal syndrome Cholelithiasis Congestive heart failure Cor pulmonale Corns and callus GERD (gastroesophageal reflux disease) History of alcohol abuse Hx of congestive heart failure Hx of myocardial infarction 2007 Hyperlipidemia Inguinal hernia Inguinal hernia, recurrent Jaundice Lateral femoral cutaneous entrapment syndrome Leg cramps Myocardial infarct Nail disorder Nocturnal leg cramps Overweight Pain, joint, knee, left Rectal bleeding Surgical History Hx of CABG Hx of cataract surgery Hx of colonoscopy Hx of inguinal hernia surgery S/P CABG (coronary artery bypass graft) 2009 Social History Smoking/Tobacco Use Status: Former Tobacco Use Quit Date: 07/12/89 Tobacco: How many years used: 15 Smoking risk assessment performed?: Yes Alcohol Intake: former Drug use: Never Substance use type: does not use Do you feel safe at home: Yes Do you feel safe in your relationship?: Yes Exam Const General: cooperative, comfortable and no acute distress Orientation: alert and oriented x3 Eyes Pupils: PERRL Resp Effort & Inspection: normal respiratory effort Auscultation: clear to auscultation bilaterally Cardio Rate: regular rate Rhythm: regular rhythm GI Inspection: normal to inspection Other: non-tender Skin General skin exam: no rashes or lesions noted Neuro General: patient alert and patient oriented x3 Cognition: normal cognition Course Vital Signs Vital signs: Vital Signs Temperature 36.7 C 03/18/22 22:06 Pulse 85 03/18/22 22:06 Respiratory Rate 16 03/18/22 22:06 Blood Pressure 117/58 L 03/18/22 22:06 Pulse Oximetry 97 03/18/22 22:06 Temperature 36.7 C 03/18/22 22:06 Temperature Source Skin 03/18/22 22:06 Pulse 85 03/18/22 22:06 Respiratory Rate 16 03/18/22 22:06 Respiratory Effort Non-Labored 03/18/22 22:10 Blood Pressure 117/58 L 03/18/22 22:06 Pulse Oximetry 97 03/18/22 22:06 Pain Level 0 03/18/22 22:06
[2022-03-18] MEDS: Cefdinir 300 MG CAP PO (23:35)
== END 2022-03-18 23:42 | disposition home or self-care (01) ==
PROVIDERS: Emergency Provider Physician Assistant; PCP Internal Medicine
DX: N39.0 Urinary tract infection, site not specified (principal); T83.091A Other mechanical complication of indwelling urethral catheter, initial encounter; Y84.6 Urinary catheterization as the cause of abnormal reaction of the patient, or of later complication, without mention of misadventure at the time of the procedure; Z87.891 Personal history of nicotine dependence
CPT/HCPCS: 99214; 99283; 99284

== ENCOUNTER 2022-04-01 03:08 | Emergency (ER) | payer MEDICARE, SELFPAY ==
[2022-04-01 03:15] VITALS: BP 123/73; PULSE 83; RESP 19; TEMP 36.3; O2SAT 97
--- NOTE | 2022-04-01 03:30 | DI.CT_ITS ---
Exam(s) CT ABDOMEN PELVIS W EXAM: CT ABDOMEN PELVIS W CLINICAL HISTORY: abd distension; ascites v bowel obstruction. TECHNIQUE: Imaging Protocol: Axial computed tomography images with coronal and sagittal reformatted images were created and reviewed CONTRAST MATERIAL: Intravenous: Omnipaque 100cc Oral: None COMPARISON: CT CT ABDOMEN PELVIS WO from 03/03/2022 FINDINGS: VISUALIZED LUNG BASES: Sternotomy wires. Cardiomegaly. Prosthetic mitral valve. Small-moderate siz e right pleural effusion, slightly larger than previous. Tiny amount of left pleural fluid.. ABDOMEN: There is some perihepatic and perisplenic ascites noted as well as some ascitic fluid in the pelvis a gain noted. LIVER: Contrast reflux into the intrahepatic IVC and intrahepatic systemic veins is noted, these bein g dilated and consistent with element of right heart compromise. Cyst is again noted in the left hep atic lobe. No new ominous focal hepatic lesions GALLBLADDER/BILIARY: Gallstones again noted. No obvious acute cholecystitis. CBD is not dilated. PANCREAS: No evidence of pancreatic mass nor dilatation of the pancreatic duct. SPLEEN: Splenomegaly again noted. No splenic lesions. Splenic vein again noted to be increased diam eter, commensurate with portal venous hypertension. ADRENALS: There are no significant adrenal masses. KIDNEYS:No cysts evident. No solid renal masses. No calculi nor hydronephrosis.. ABDOMINAL AORTA: Abdominal aorta is not enlarged. LYMPH NODES:There is no retroperitoneal nor paraaortic adenopathy. ABDOMINAL WALL: Previously described anterior abdominal wall umbilical hernia is again noted. This i s again noted to contain a density which is possibly part of a small-bowel loop or just independent f luid. There is no transition point at this level. GI: There is no evidence of bowel obstruction, free air, nor abscess. PELVIS: GI: No evidence of appendicitis.Sigmoid diverticuli but no evidence of acute diverticulitis. LYMPH NODES: There is no intrapelvic nor inguinal adenopathy. REPRODUCTIVE: Small versus surgically absent prostate. URINARY BLADDER: There is a catheter in the urinary bladder. This is different from the previously p resent Lazo catheter. Bladder is not distended. OSSEOUS: Sclerotic osseous Mets again noted in the bones of the pelvis. No fractures. Multilevel di sc space narrowing. IMPRESSION: 1. Again noted is cirrhosis, splenomegaly, and evidence of portal hypertension with small-moderate am ount of ascites in the abdomen and pelvis. 2. Anterior abdominal wall umbilical hernia which contains some fluid or part of a bowel wall therein . There is no bowel transition point evident at this level. No bowel obstruction. No free air 3. Cholelithiasis again noted. No acute cholecystitis. CBD not dilated. 4. Sigmoid diverticulosis but no obvious acute diverticulitis. Previously present Lazo catheter is been removed and replaced with a wider diameter intravesicular d rainage catheter at this time. The bladder is not distended. Sclerotic mets again noted in the bones of the pelvis. No fractures. Cardiomegaly. Sternotomy. Prosthetic mitral valve. Small right pleural effusion. Dilated intrahep atic veins. These findings 0.2 element of right heart failure. RADIATION DOSE DELIVERED: 883.87mGy.cm Total DLP DATA REPOSITORY: All CT scans at this facility are submitted to the National Radiology Data Registry (NRDR) Dose Index Registry (DIR) with the [employer] (ACR). RADIATION OPTIMIZATION: All CT scans at this facility use at least one of these dose optimization te chniques: automated exposure control; mA and/or kV adjustment per patient size (includes targeted exa ms where dose is matched to clinical indication); or iterative reconstruction.
--- NOTE | 2022-04-01 03:37 | W.ED.GENAD ---
Discharge Plan Disposition Patient Disposition: HOME Condition: Stable Discharge Details Chief Complaint: Abd Prob Clinical Impression: Portal hypertension Primary Care Provider: Rudolph Ryan ED Provider: Aly Betts Home Meds and New Rx's Prescriptions: No Action acetaminophen [Tylenol] 325 mg capsule 650 mg PO DAILY PRN PRN Rx Instructions: for pain amiodarone 200 mg tablet 200 mg PO DAILY metoprolol succinate 50 mg tablet extended release 24 hr 25 mg PO BID Rx Instructions: 1/2 tab in morning and 1/2 tab at hs spironolactone 50 mg tablet 50 mg PO DAILY furosemide 40 mg tablet 20 mg PO DAILY Qty: 30 0RF Xarelto 15 mg tablet 15 mg PO DAILY Rx Instructions: must administer with evening meal famotidine [Acid Intermodal Owner Operator Truck Driver (famotidine)] 20 mg tablet 20 mg PO BID aspirin [Aspir-81] 81 MG tablet,delayed release (DR/EC) 81 mg PO .QOD Label Comments: 06/14/17 pt last day taking this is 06/17/17 pt aware, DCW atorvastatin [Lipitor] 40 MG tablet 40 mg PO HS losartan 50 MG tablet 50 mg PO DAILY dexlansoprazole 60 mg Capsule,Biphase Delayed Releas 60 mg PO 1XD tamsulosin 0.4 mg capsule 0.8 mg PO DAILY Discharge Instructions Instructions: Portal Hypertension (ED) Additional Instructions: Please follow-up with your primary care physician and discuss further treatments for your portal hypertension. There is a procedure called TIPS that you may benefit from. Please return to the emergency department for any worsening symptoms, especially if you are having trouble breathing having increasing pain nausea vomiting not passing stool or having other abnormal symptoms. Medical Decision Making 81-year-old male history of A. fib on anticoagulation, chart review showing history of cirrhosis, CHF, presents with abdominal distention fullness, tense distended abdomen with tympanic quality, skin appears jaundiced. Consider ascites in the setting of hepatic cirrhosis versus ascites in the setting of CHF versus bowel obstruction. Nonperitoneal low suspicion for spontaneous bacterial peritonitis. Will obtain basic labs imaging if ascites will likely perform therapeutic paracentesis. 6: 50 patient resting comfortably. Evidence of cirrhosis with trace ascites. Most of patient's swelling is likely related to mesenteric edema related to portal hypertension. Patient endorses that he is meeting with his primary care physician next week and will be having an endoscopy. I counseled him regarding TIPS procedure. No evidence of obstruction or large ascites that would be amenable to paracentesis. Home care instructions and strict return precautions given HPI General Date/Time Provider Initiated Documentation: 04/01/22 03:27. HPI Narrative: 81-year-old male history of A. fib on anticoagulation CHF hypertension chart review showing history of cirrhosis presents with abdominal distention fullness and yellow discoloration of skin over the past several days. Patient has had some loose bowel movements today, no nausea no vomiting. No chest pain or shortness of breath Related Data Home Medications Medication Instructions Recorded Confirmed aspirin 81 mg tablet,delayed 81 mg PO .QOD 12/18/15 04/01/22 release (Aspir-) atorvastatin 40 mg tablet (Lipitor) 40 mg PO HS 12/20/15 04/01/22 losartan 50 mg tablet 50 mg PO DAILY 06/12/16 04/01/22 famotidine 20 mg tablet (Acid 20 mg PO BID 07/02/20 04/01/22 Intermodal Owner Operator Truck Driver (famotidine)) rivaroxaban 15 mg tablet (Xarelto) 15 mg PO DAILY 07/02/20 04/01/22 tamsulosin 0.4 mg capsule 0.8 mg PO DAILY 09/25/20 04/01/22 acetaminophen 325 mg capsule 650 mg PO DAILY PRN PRN 07/10/21 04/01/22 (Tylenol) amiodarone 200 mg tablet 200 mg PO DAILY 07/10/21 04/01/22 metoprolol succinate 50 mg 25 mg PO BID 07/10/21 04/01/22 tablet,extended release 24 hr spironolactone 50 mg tablet 50 mg PO DAILY 07/10/21 04/01/22 furosemide 40 mg tablet 20 mg PO DAILY #30 tab-caps 12/18/21 04/01/22 dexlansoprazole 60 mg 60 mg PO 1XD 04/01/22 04/01/22 capsule,biphase delayed release Previous Rx's Medication Instructions Recorded furosemide 40 mg tablet 20 mg PO DAILY #30 tab-caps 12/18/21 Allergies Allergy/AdvReac Type Severity Reaction Status Date / Time lisinopril AdvReac Intermediate cough Verified 04/01/22 03:20 spironolactone AdvReac Hyperkalemi Verified 04/01/22 03:20 a General Stated Complaint: Abd Prob EUSEBIO: 3 Review of Systems Narrative: Review of Systems Constitutional: negative Eyes: negative ENT: negative Cardiovascular: negative Respiratory: negative Gastrointestinal: Abdominal distention : negative Musculoskeletal: negative Skin: negative Neurologic: negative Psych: negative PFSH All Active Problems (Updated 04/01/22 @ 06:55 by Aly Betts MD) Urinary tract infection (Acute) Malfunction of Lazo catheter (Acute) Portal hypertension (Acute) Complication of Lazo catheter (Acute) Iron deficiency anemia (Acute) DNR (do not resuscitate) (Acute) Chronic kidney disease (Chronic) Fatigue (Acute) Screening for colon cancer (Acute) Abdominal distention (Acute) Cardiomyopathy (Acute) Ventricular tachycardia (Chronic) Thrombocytopenia (Chronic) Anemia (Chronic) NSTEMI (non-ST elevated myocardial infarction) (Acute) Coronary artery disease (Chronic) Cirrhosis (Acute) Ventricular tachycardia (Chronic) Bone metastasis (Acute) Prostate cancer (Chronic) Incarcerated right inguinal hernia (Acute) Tricuspid regurgitation (Acute) Acute urinary retention (Acute) Urinary retention due to benign prostatic hyperplasia (Acute) Elevated PSA, greater than or equal to 20 ng/ml (Acute) BPH (benign prostatic hyperplasia) (Chronic) Paroxysmal atrial fibrillation (Chronic) Medical History A-fib Anemia Anticoagulation adequate Ascites Bladder outlet obstruction Cardiorenal syndrome Cholelithiasis Congestive heart failure Cor pulmonale Corns and callus GERD (gastroesophageal reflux disease) History of alcohol abuse Hx of congestive heart failure Hx of myocardial infarction 2007 Hyperlipidemia Inguinal hernia Inguinal hernia, recurrent Jaundice Lateral femoral cutaneous entrapment syndrome Leg cramps Myocardial infarct Nail disorder Nocturnal leg cramps Overweight Pain, joint, knee, left Rectal bleeding Surgical History Hx of CABG Hx of cataract surgery Hx of colonoscopy Hx of inguinal hernia surgery S/P CABG (coronary artery bypass graft) 2009 Social History Smoking/Tobacco Use Status: Former Tobacco Use Quit Date: 07/12/89 Tobacco: How many years used: 15 Smoking risk assessment performed?: Yes Alcohol Intake: former Drug use: Never Substance use type: does not use Do you feel safe at home: Yes Do you feel safe in your relationship?: Yes Exam Narrative Exam Narrative: Physical Examination General: alert, awake, cooperative, resting comfortably, no acute distress HEENT: normocephalic, atraumatic; PERRL, EOM intact, conjunctiva normal; no nasal discharge; moist mucous membranes, oral and pharyngeal mucosa normal, tolerating secretions Neck: supple, trachea midline; full ROM Chest: normal to inspection Respiratory: normal respiratory effort, speaking in full sentences, clear to auscultation, no wheezing, rales or rhonchi Cardiac: regular rate, regular rhythm, S1S2 intact, no murmurs rubs or gallops GI: Tense distended abdomen Skin: Jaundice Neuro: AAOx3, normal speech, moving all extremities Psych: Appropriate mood and affect Course Vital Signs Vital signs: Vital Signs Temperature 36.3 C L 04/01/22 03:15 Pulse 83 04/01/22 03:15 Respiratory Rate 19 04/01/22 03:15 Blood Pressure 123/73 04/01/22 03:15 Pulse Oximetry 97 04/01/22 03:15 Temperature 36.3 C L 04/01/22 03:15 Temperature Source Skin 04/01/22 03:15 Pulse 83 04/01/22 03:15 Respiratory Rate 19 04/01/22 03:15 Respiratory Effort 04/01/22 03:17 Blood Pressure 123/73 04/01/22 03:15 Blood Pressure Position Supine 04/01/22 03:15 Pulse Oximetry 97 04/01/22 03:15 Oxygen Delivery Method Room Air 04/01/22 03:15 Oxygen Flow Rate 0 04/01/22 03:15 Pain Level 6 04/01/22 03:15 Comment 04/01/22 03:15
[2022-04-01 03:52] LABS: Abs Immature Grans 0.02 10^3/uL (0.0-0.06); Absolute Basophil Count 0.02 10^3/uL (0.0-0.2); Absolute Eosinophil Count 0.07 10^3/uL (0.0-0.7); Absolute Lymphocyte Count 0.22 10^3/uL (1.2-3.4); Absolute Monocyte Count 0.58 10^3/uL (0.1-0.8); Absolute Neutrophil Count 3.57 10^3/uL (1.2-6.7); Basophils % 0.4; Eosinophils % 1.6; HCT 29.3 % (40.0-50.0); HGB 9.1 g/dL (13.5-17.5); Immature Grans % 0.4; Lymphocytes % 4.9; MCH 25.3 pg (27.0-33.0); MCHC 31.1 % (32.0-36.0); MCV 81 fL (80-95); MPV 11.3 fL (8.0-11.0); Monocytes % 12.9; Neutrophils % 79.8; Platelet Count 111 10^3/uL (130-400); RDW 17.4 % (11.8-14.1); RDW-SD 51.2 fL; WBC 4.48 10^3/uL (4.4-10.8)
[2022-04-01 03:57] LABS: INR 1.9 (0.9-1.1); PTT Activated 43.9 sec (21.0-27.5); Prothrombin Time 18.2 sec (9.3-11.0)
[2022-04-01 04:05] LABS: ALT 31 U/L (16-63); AST 34 U/L (15-37); Albumin 3.4 g/dL (3.4-5.0); Alkaline Phosphatase 259 U/L (46-116); Anion Gap 8.5 mmol/L (3-11); BUN 27 mg/dL (7-18); Bilirubin, Total 1.5 mg/dL (0.2-1.0); CO2 27.5 mmol/L (21.0-32.0); CREATININE 1.8 mg/dL (0.70-1.30); Chloride 102 mmol/L (98-107); Estimated GFR 37.12 (mL/min/1.73m2); Glucose 104 mg/dL (74-106); NT-proBNP 4653 pg/mL (<300); Potassium 4.7 mmol/L (3.5-5.1); Sodium 138 mmol/L (136-145)
[2022-04-01] MEDS: Omnipaque 350 MG/ML 100 ML BTL IJ (04:38)
--- NOTE | 2022-04-01 06:37 | DI.VRAD_ITS ---
PROCEDURE INFORMATION: Exam: CT Abdomen And Pelvis With Contrast Exam date and time: 04/01/2022 4:31 AM Age: 81 years old Clinical indication: Other: Abd distension; Ascites v bowel obstruction TECHNIQUE: Imaging protocol: Computed tomography of the abdomen and pelvis with contrast. Radiation optimization: All CT scans at this facility use at least one of these dose optimization techniques: automated exposure control; mA and/or kV adjustment per patient size (includes targeted exams where dose is matched to clinical indication); or iterative reconstruction. Contrast material: OMNI 350; Contrast volume: 100 ml; Contrast route: INTRAVENOUS (IV); COMPARISON: CT ABDOMEN PELVIS WO 03/03/2022 7:03 PM FINDINGS: Lungs: Bibasilar dependent atelectasis. Pleural spaces: Small right pleural effusion. Trace left pleural effusion. Heart: Cardiomegaly. Prosthetic mitral valve. No pericardial effusion. Diaphragm: Small hiatal hernia demonstrated. Liver: Liver not enlarged. Cirrhotic morphology. Benign-appearing 2.4 cm low-attenuation lesion left lobe, likely cyst, stable, requiring no further evaluation. No worrisome hepatic mass. Gallbladder and bile ducts: Cholelithiasis without discrete evidence of acute cholecystitis. Pancreas: Fatty replacement of the pancreas. Peripancreatic infiltration/inflammation and unencapsulated fluid. No ductal dilatation. No discrete mass. Spleen: Splenomegaly. Adrenal glands: No mass. No enlargement. No hemorrhage. Kidneys and ureters: Atrophic kidneys. No hydroureteronephrosis or ureterolithiasis. Stomach and bowel: Diverticulosis without acute diverticulitis. No colitis. Stomach decompressed with small hiatal hernia. No outlet obstruction. Small bowel normal caliber without mechanical obstruction or pneumatosis. Appendix: No evidence of acute appendicitis. Intraperitoneal space: Small amount of perihepatic and perisplenic ascites within the upper abdomen. Central mesenteric edema. Small amount of ascites within the dependent pelvis and left inguinal canal. No free intraperitoneal air. Vasculature: Portal hypertension. No obvious vascular thrombosis. Aorta normal caliber without aneurysm. Aortic atherosclerotic calcification. Lymph nodes: No significant lymphadenopathy demonstrated. Urinary bladder: Bladder decompressed by indwelling catheter with borderline wall thickening and punctate internal air, instrumentation versus infection. Reproductive: Prostate not enlarged. Bones/joints: Moderate degenerative changes noted throughout the spine. No acute fracture. Scoliosis. Soft tissues: Small uncomplicated fat containing umbilical hernia. Small amount of associated fluid. IMPRESSION: 1. Cirrhosis with portal hypertension and splenomegaly. Small amount of ascites within the abdomen and pelvis. 2. No evidence of bowel obstruction, pneumatosis or free air. 3. Additional nonemergent findings as described above. Dictated and Authenticated by: Hector Driver MD. Ordering:CLEMENTINE Lu MD
[2022-04-01 07:14] VITALS: BP 132/72; PULSE 88; RESP 16; O2SAT 99
== END 2022-04-01 07:16 | disposition home or self-care (01) ==
PROVIDERS: Emergency Provider Emergency Medicine; PCP Internal Medicine
DX: K76.6 Portal hypertension (principal); K74.60 Unspecified cirrhosis of liver; I50.9 Heart failure, unspecified
CPT/HCPCS: 80053; 99285; 74177; 83880; 85025; 85610; 85730; 99284; J3490

== ENCOUNTER → 2022-04-02 10:35 | Outpatient (BNVA) | payer MEDICARE, SELFPAY | PROVIDERS: PCP Internal Medicine; Visit Provider Internal Medicine Cardiovascular Disease | DX: K76.6 Portal hypertension (principal); K74.60 Unspecified cirrhosis of liver; I25.2 Old myocardial infarction; I47.2 Ventricular tachycardia; I42.9 Cardiomyopathy, unspecified; I07.1 Rheumatic tricuspid insufficiency; I25.10 Atherosclerotic heart disease of native coronary artery without angina pectoris; I48.0 Paroxysmal atrial fibrillation | CPT/HCPCS: 99214 ==

== ENCOUNTER → 2022-04-06 14:24 | Outpatient (BNVA) | payer MEDICARE, SELFPAY | PROVIDERS: PCP Internal Medicine; Referring Provider Internal Medicine; Visit Provider Nurse Practitioner Gerontology | DX: C61 Malignant neoplasm of prostate (principal); C79.51 Secondary malignant neoplasm of bone; R97.20 Elevated prostate specific antigen [PSA] | CPT/HCPCS: 51702; 96402; J9217 ==

== ENCOUNTER 2022-04-14 02:00 | Outpatient (CLI) | payer MEDICARE, SELFPAY ==
[2022-04-14 10:10] LABS: Abs Immature Grans 0.02 10^3/uL (0.0-0.06); Absolute Basophil Count 0.02 10^3/uL (0.0-0.2); Absolute Eosinophil Count 0.05 10^3/uL (0.0-0.7); Absolute Lymphocyte Count 0.22 10^3/uL (1.2-3.4); Absolute Monocyte Count 0.61 10^3/uL (0.1-0.8); Absolute Neutrophil Count 3.32 10^3/uL (1.2-6.7); Basophils % 0.5; Eosinophils % 1.2; HCT 28.9 % (40.0-50.0); HGB 8.9 g/dL (13.5-17.5); Immature Grans % 0.5; Lymphocytes % 5.2; MCH 24.7 pg (27.0-33.0); MCHC 30.8 % (32.0-36.0); MCV 80 fL (80-95); MPV 13.1 fL (8.0-11.0); Monocytes % 14.4; Neutrophils % 78.2; Platelet Count 117 10^3/uL (130-400); RDW 18.2 % (11.8-14.1); RDW-SD 53.1 fL; WBC 4.24 10^3/uL (4.4-10.8)
[2022-04-14 10:27] LABS: ALT 26 U/L (16-63); AST 33 U/L (15-37); Albumin 3.3 g/dL (3.4-5.0); Alkaline Phosphatase 258 U/L (46-116); Anion Gap 8.7 mmol/L (3-11); BUN 27 mg/dL (7-18); Bilirubin, Total 1.5 mg/dL (0.2-1.0); CO2 28.3 mmol/L (21.0-32.0); CREATININE 1.9 mg/dL (0.70-1.30); Calcium 8.9 mg/dL (8.5-10.1); Chloride 101 mmol/L (98-107); Estimated GFR 34.79 (mL/min/1.73m2); Glucose 145 mg/dL (74-106); Potassium 4.4 mmol/L (3.5-5.1); Sodium 138 mmol/L (136-145); Total Protein 6.8 g/dL (6.4-8.2)
[2022-04-14 10:32] LABS: Poikilocytes 1+
[2022-04-15 13:31] LABS: PSA, Ultrasensitive 0.42 ng/mL (<= 7.2)
[2022-04-16 11:38] LABS: Testosterone, Total <7.0 ng/dL (240-950)
== END 2022-04-14 02:01 | disposition home or self-care (01) ==
PROVIDERS: PCP Internal Medicine; Visit Provider Internal Medicine
DX: C61 Malignant neoplasm of prostate (principal); C79.51 Secondary malignant neoplasm of bone
CPT/HCPCS: 36415; 80053; 84153; 84403; 85025

== ENCOUNTER 2022-04-25 11:04 | Emergency (ER) | payer MEDICARE, SELFPAY ==
[2022-04-25 11:09] VITALS: BP 127/73; PULSE 105; RESP 18; TEMP 37.6; O2SAT 95
--- NOTE | 2022-04-25 11:30 | DI.RAD_ITS ---
Exam(s) XR PORTABLE CHEST AP EXAM: XR PORTABLE CHEST AP CLINICAL HISTORY: cough, fever TECHNIQUE: 2D digital imaging was performed of the chest. One image was obtained. An AP view was ob tained. COMPARISON: CR XR PORTABLE CHEST AP from 06/02/2021 FINDINGS: MEDIASTINUM: Normal. HEART: Cardiomegaly. Mitral valve replacement. PULMONARY VASCULATURE: Normal. LUNGS: Clear. PLEURAL SPACE: No pleural effusion or pneumothorax. BONE:Within normal limits for the patient's age. OTHER FINDINGS:Normal. IMPRESSION: No acute pulmonary findings. DATA REPOSITORY: RADIATION DOSE DELIVERED:
--- NOTE | 2022-04-25 11:38 | W.ED.GENAD ---
Discharge Plan Disposition Patient Disposition: HOME Condition: Stable Discharge Details Clinical Impression: Acute UTI, COVID-19 Primary Care Provider: Rudolph Ryan ED Provider: Aly Betts Home Meds and New Rx's Prescriptions: New cefpodoxime 200 mg tablet 200 mg PO BID 7 Days Qty: 14 0RF Rx Instructions: must administer with a meal/food No Action acetaminophen [Tylenol] 325 mg capsule 650 mg PO DAILY PRN PRN Rx Instructions: for pain amiodarone 200 mg tablet 200 mg PO DAILY metoprolol succinate 50 mg tablet extended release 24 hr 25 mg PO BID Rx Instructions: 1/2 tab in morning and 1/2 tab at hs spironolactone 50 mg tablet 50 mg PO DAILY furosemide 40 mg tablet 40 mg PO DAILY Qty: 30 8RF Xarelto 15 mg tablet 15 mg PO DAILY Rx Instructions: must administer with evening meal famotidine [Acid Adult Probation Officer (famotidine)] 20 mg tablet 20 mg PO BID aspirin [Aspir-81] 81 MG tablet,delayed release (DR/EC) 81 mg PO .QOD Label Comments: 06/14/17 pt last day taking this is 06/17/17 pt aware, DCW atorvastatin [Lipitor] 40 mg tablet 20 mg PO HS losartan 50 MG tablet 50 mg PO DAILY dexlansoprazole 60 mg Capsule,Biphase Delayed Releas 60 mg PO 1XD tamsulosin 0.4 mg capsule 0.8 mg PO DAILY Discharge Instructions Instructions: Urinary Tract Infection in Men (ED), Viral Syndrome (ED) Additional Instructions: Please follow-up with your primary care physician. Please return to the emergency department for any worsening symptoms Medical Decision Making 81-year-old male history of prostate cancer, recent UTI, known portal hypertension, presents with nausea vomiting and diarrhea over the past day, low-grade fever at home to 101, patient is nonperitoneal however does have hepatomegaly and nontense ascites; nonperitoneal, does appear slightly dry with dry oral mucosa and skin, noted jaundice. Tachycardia on arrival. No respiratory distress however patient does endorse a cough. Consider viral syndrome such as COVID versus influenza versus viral gastroenteritis versus electrolyte normality versus dehydration lower suspicion for bowel obstruction cholecystitis or appendicitis, lower suspicion for spontaneous bacterial peritonitis given nonperitoneal examination abdomen. No recent or history of paracentesis. Will obtain basic labs chest x-ray COVID flu swab urinalysis, fluid hydration and antiemetics. Close reassessment disposition pending results 13: 50 evidence of UTI as well as COVID infection. Patient started on cefpodoxime for UTI given home care instructions for COVID HPI General Date/Time Provider Initiated Documentation: 04/25/22 11:28. HPI Narrative: 81-year-old male history of prostate cancer, urinary retention with chronic indwelling Lazo, last changed the 12th of this month, recent UTI, known portal hypertension, presents with nausea abdominal discomfort and loose stool over the past several days, temperature to 101 at home. Related Data Home Medications Medication Instructions Recorded Confirmed aspirin 81 mg tablet,delayed 81 mg PO .QOD 12/18/15 04/25/22 release (Aspir-) losartan 50 mg tablet 50 mg PO DAILY 06/12/16 04/25/22 famotidine 20 mg tablet (Acid 20 mg PO BID 07/02/20 04/25/22 Adult Probation Officer (famotidine)) rivaroxaban 15 mg tablet (Xarelto) 15 mg PO DAILY 07/02/20 04/25/22 tamsulosin 0.4 mg capsule 0.8 mg PO DAILY 09/25/20 04/25/22 acetaminophen 325 mg capsule 650 mg PO DAILY PRN PRN 07/10/21 04/25/22 (Tylenol) amiodarone 200 mg tablet 200 mg PO DAILY 07/10/21 04/25/22 metoprolol succinate 50 mg 25 mg PO BID 07/10/21 04/25/22 tablet,extended release 24 hr spironolactone 50 mg tablet 50 mg PO DAILY 07/10/21 04/25/22 dexlansoprazole 60 mg 60 mg PO 1XD 04/01/22 04/25/22 capsule,biphase delayed release atorvastatin 40 mg tablet (Lipitor) 20 mg PO HS 04/02/22 04/25/22 furosemide 40 mg tablet 40 mg PO DAILY #30 tab-caps 04/02/22 04/25/22 cefpodoxime 200 mg tablet 200 mg PO BID 7 days #14 tabs 04/25/22 Previous Rx's Medication Instructions Recorded furosemide 40 mg tablet 40 mg PO DAILY #30 tab-caps 04/02/22 cefpodoxime 200 mg tablet 200 mg PO BID 7 days #14 tabs 04/25/22 Allergies Allergy/AdvReac Type Severity Reaction Status Date / Time lisinopril AdvReac Intermediate cough Verified 04/25/22 11:30 spironolactone AdvReac Hyperkalemi Verified 04/25/22 11:30 a General Stated Complaint: Nausea/Vomit/Diar EUSEBIO: 3 Review of Systems Narrative: Review of Systems Constitutional: negative Eyes: negative ENT: negative Cardiovascular: negative Respiratory: negative Gastrointestinal: Abdominal pain, nausea, diarrhea : negative Musculoskeletal: negative Skin: negative Neurologic: negative Psych: negative PFSH All Active Problems (Updated 04/25/22 @ 13:51 by Aly Betts MD) Acute UTI (Acute) COVID-19 (Acute) Portal hypertension (Acute) Iron deficiency anemia (Acute) DNR (do not resuscitate) (Acute) Chronic kidney disease (Chronic) Fatigue (Acute) Screening for colon cancer (Acute) Abdominal distention (Acute) Cardiomyopathy (Acute) Ventricular tachycardia (Chronic) Thrombocytopenia (Chronic) Anemia (Chronic) NSTEMI (non-ST elevated myocardial infarction) (Acute) Coronary artery disease (Chronic) Cirrhosis (Acute) Ventricular tachycardia (Chronic) Bone metastasis (Acute) Prostate cancer (Chronic) Incarcerated right inguinal hernia (Acute) Tricuspid regurgitation (Acute) Acute urinary retention (Acute) Urinary retention due to benign prostatic hyperplasia (Acute) Elevated PSA, greater than or equal to 20 ng/ml (Acute) BPH (benign prostatic hyperplasia) (Chronic) Paroxysmal atrial fibrillation (Chronic) Medical History A-fib Anemia Anticoagulation adequate Ascites Bladder outlet obstruction Cardiorenal syndrome Cholelithiasis Congestive heart failure Cor pulmonale Corns and callus GERD (gastroesophageal reflux disease) History of alcohol abuse Hx of congestive heart failure Hx of myocardial infarction 2007 Hyperlipidemia Inguinal hernia Inguinal hernia, recurrent Jaundice Lateral femoral cutaneous entrapment syndrome Leg cramps Myocardial infarct Nail disorder Nocturnal leg cramps Overweight Pain, joint, knee, left Rectal bleeding Surgical History Hx of CABG Hx of cataract surgery Hx of colonoscopy Hx of inguinal hernia surgery S/P CABG (coronary artery bypass graft) 2009 Social History Smoking/Tobacco Use Status: Former Tobacco Use Quit Date: 01/01/90 Tobacco: How many years used: 15 Smoking risk assessment performed?: Yes Alcohol Intake: former Drug use: Never Substance use type: does not use Do you feel safe at home: Yes Do you feel safe in your relationship?: Yes Exam Narrative Exam Narrative: Physical Examination General: alert, awake, cooperative, resting comfortably, no acute distress HEENT: normocephalic, atraumatic; PERRL, EOM intact, conjunctiva normal; no nasal discharge; dry oral mucosa Neck: supple, trachea midline; full ROM Chest: normal to inspection Respiratory: normal respiratory effort, speaking in full sentences, clear to auscultation, no wheezing, rales or rhonchi Cardiac: regular rate, regular rhythm, S1S2 intact, no murmurs rubs or gallops GI: abdomen soft, non-tender, hepatomegaly, mild to moderate fluid wave, nontense ascites nonperitoneal : Urinary catheter in place Skin: Jaundice Neuro: AAOx3, normal speech, moving all extremities Psych: Appropriate mood and affect Course Vital Signs Vital signs: Vital Signs Temperature 37.6 C 04/25/22 11:09 Pulse 105 H 04/25/22 11:09 Respiratory Rate 18 04/25/22 11:09 Blood Pressure 127/73 04/25/22 11:09 Pulse Oximetry 95 04/25/22 11:09 Temperature 37.6 C 04/25/22 11:09 Temperature Source Oral 04/25/22 11:09 Pulse 105 H 04/25/22 11:09 Respiratory Rate 18 04/25/22 11:09 Respiratory Effort Short of Breath 04/25/22 11:22 Blood Pressure 127/73 04/25/22 11:09 Blood Pressure Position Sitting 04/25/22 11:09 Pulse Oximetry 95 04/25/22 11:09 Oxygen Delivery Method Room Air 04/25/22 11:09 Oxygen Flow Rate 0 04/25/22 11:09 Pain Level 0 04/25/22 11:09
[2022-04-25 11:48] LABS: Abs Immature Grans 0.04 10^3/uL (0.0-0.06); Absolute Basophil Count 0.02 10^3/uL (0.0-0.2); Absolute Eosinophil Count 0.03 10^3/uL (0.0-0.7); Absolute Lymphocyte Count 0.18 10^3/uL (1.2-3.4); Absolute Monocyte Count 0.72 10^3/uL (0.1-0.8); Absolute Neutrophil Count 6.81 10^3/uL (1.2-6.7); Basophils % 0.3; Eosinophils % 0.4; HCT 28.7 % (40.0-50.0); Immature Grans % 0.5; Lymphocytes % 2.3; MCH 24.7 pg (27.0-33.0); MCHC 31.4 % (32.0-36.0); MCV 79 fL (80-95); Monocytes % 9.2; Neutrophils % 87.3; Platelet Count 125 10^3/uL (130-400); RBC 3.64 10^6/uL (4.36-5.78); RDW 18.9 % (11.8-14.1); RDW-SD 54.3 fL
[2022-04-25] MEDS: Ondansetron 4 MG/2 ML VIAL IVP (11:49)
[2022-04-25] MEDS: Normal Saline 500 ML 1000 ML IV (11:49)
[2022-04-25 12:09] LABS: Diff Comment PLT Morph Reviewed; RBC Morphology Normal
[2022-04-25 12:12] LABS: Bilirubin Negative (Negative); Blood Moderate (Negative); Clarity Cloudy (Clear); Glucose Negative (Negative); Ketones Negative (Negative); Leukocyte Esterase Small (Negative); Nitrite Positive (Negative)
[2022-04-25 12:13] LABS: ALT 28 U/L (16-63); AST 32 U/L (15-37); Albumin 3.5 g/dL (3.4-5.0); Alkaline Phosphatase 254 U/L (46-116); Anion Gap 11.5 mmol/L (3-11); BUN 32 mg/dL (7-18); CO2 26.5 mmol/L (21.0-32.0); CREATININE 1.7 mg/dL (0.70-1.30); Calcium 8.9 mg/dL (8.5-10.1); Chloride 105 mmol/L (98-107); Estimated GFR 39.75 (mL/min/1.73m2); Glucose 112 mg/dL (74-106); Lipase 52 U/L (73-393); Potassium 4.5 mmol/L (3.5-5.1); Sodium 143 mmol/L (136-145); Total Protein 7.2 g/dL (6.4-8.2)
[2022-04-25 12:18] LABS: Bacteria Many HPF (Negative); C & S Indicated? Yes; Casts 0-2 Coarse Granular LPF (Negative); Crystals Rare Calcium Oxalate HPF (Negative); Epithelial Cells Rare HPF (Negative); Mucus Negative (Negative); WBC 20-50 HPF (0-5)
--- NOTE | 2022-04-25 12:29 | DI.VRAD_ITS ---
PROCEDURE INFORMATION: Exam: XR Chest Exam date and time: 04/25/2022 11:46 AM Age: 81 years old Clinical indication: Cough; Prior surgery TECHNIQUE: Imaging protocol: Radiologic exam of the chest. Views: 1 view. COMPARISON: CT CHEST/ABD/PEL WO 01/07/2022 11:28 AM FINDINGS: Lungs: Unremarkable. No consolidation. Pleural spaces: Unremarkable. No pleural effusion. No pneumothorax. Heart/Mediastinum: Heart is enlarged. Mitral valve annuloplasty ring noted. Bones/joints: Postsurgical changes with median sternotomy wires, unchanged. IMPRESSION: Stable cardiomegaly. No acute pulmonary process. Dictated and Authenticated by: Piter Selby MD. Ordering:CLEMENTINE Lu MD
[2022-04-25 12:35] VITALS: BP 118/66; PULSE 102; RESP 20; TEMP 37.9; O2SAT 94
[2022-04-25 13:22] LABS: Influenza A PCR Negative (Negative); Influenza B PCR Negative (Negative); RSV PCR Negative (Negative)
[2022-04-25 13:25] LABS: COVID-19 PCR Positive (Negative); Source Nasopharynx
[2022-04-25] MEDS: Cefpodoxime 200 MG TAB PO (13:34)
[2022-04-25 14:08] VITALS: BP 118/66; PULSE 102; RESP 20; TEMP 37.9; O2SAT 94
== END 2022-04-25 14:01 | disposition home or self-care (01) ==
PROVIDERS: Emergency Provider Emergency Medicine; PCP Internal Medicine
DX: N39.0 Urinary tract infection, site not specified (principal); B96.89 Other specified bacterial agents as the cause of diseases classified elsewhere; U07.1 COVID-19
CPT/HCPCS: 36415; 80053; 83690; 87077; 87637; 96374; 99284; 71045; 81003; 81015; 85025; 87086; 87186; J2405

== ENCOUNTER → 2022-05-11 07:53 | Outpatient (BNVA) | payer MEDICARE, SELFPAY | PROVIDERS: PCP Internal Medicine; Referring Provider Internal Medicine; Visit Provider Nurse Practitioner Gerontology | DX: R33.8 Other retention of urine (principal); R97.20 Elevated prostate specific antigen [PSA]; C61 Malignant neoplasm of prostate; C79.51 Secondary malignant neoplasm of bone | CPT/HCPCS: 51702; 96402; J9217 ==

== ENCOUNTER 2022-05-17 23:41 | Emergency (ER) | payer MEDICARE, SELFPAY ==
[2022-05-17 23:45] VITALS: BP 118/94; PULSE 77; RESP 16; TEMP 36.3; O2SAT 100
--- NOTE | 2022-05-18 00:04 | W.ED.GENAD ---
Discharge Plan Disposition Patient Disposition: HOME Condition: Stable Discharge Details Clinical Impression: Acute urinary retention, Complication, blocked Elkins catheter Primary Care Provider: Rudolph Ryan ED Provider: Milena Rutherford Home Meds and New Rx's Prescriptions: Continued acetaminophen [Tylenol] 325 mg capsule 650 mg PO DAILY PRN PRN Rx Instructions: for pain amiodarone 200 mg tablet 200 mg PO DAILY metoprolol succinate 50 mg tablet extended release 24 hr 25 mg PO BID Rx Instructions: 1/2 tab in morning and 1/2 tab at hs spironolactone 50 mg tablet 50 mg PO DAILY furosemide 40 mg tablet 40 mg PO DAILY Qty: 30 8RF Xarelto 15 mg tablet 15 mg PO DAILY Rx Instructions: must administer with evening meal famotidine [Acid Flower Cheniller (famotidine)] 20 mg tablet 20 mg PO BID aspirin [Aspir-81] 81 MG tablet,delayed release (DR/EC) 81 mg PO .QOD Label Comments: 06/14/17 pt last day taking this is 06/17/17 pt aware, DCW atorvastatin [Lipitor] 40 mg tablet 20 mg PO HS losartan 50 MG tablet 50 mg PO DAILY tamsulosin 0.4 mg capsule 0.8 mg PO DAILY Discharge Instructions Instructions: Urinary Retention in Men (ED) Additional Instructions: A new Elkins catheter was placed today and appears to be flowing well. Follow-up with urology for reevaluation as needed. Return immediately to the emergency department if you develop any worsening or new concerning symptoms. Referrals: Gasper Lazcano MD [ [facility] STAFF PHYSICIAN] - Discharge Data Discharge Physician: Milena Rutherford Medical Decision Making 81-year-old male with a history of prostate cancer, BPH and chronic urinary retention with chronic indwelling catheter for the past year, last changed 1 week ago with Lisa Kathleen presents for urinary retention today. Patient appears slightly uncomfortable but nontoxic and has moderate abdominal distention. He has approximately 20 to 30 cc of urine in his leg bag. He states this has been his total urine output today. Bladder scan revealed 250 cc of urine retained. Nursing staff attempted to flush catheter but appeared clogged without return. A new Elkins catheter was placed which noted good flow and urine sample sent. Patient symptoms improved and he felt comfortable going home. Advised to follow-up with urology for reevaluation. Usual and customary return precautions given prior to discharge. Medical Records Medical records reviewed: Yes I reviewed the patient's medical records. HPI General Mode of arrival: ambulatory. Date/Time Provider Initiated Documentation: 05/17/22 23:53. Limitations to Documentation: no limitations. Information obtained by: patient. HPI Narrative: Patient is a 81-year-old male with history of prostate cancer and BPH and chronic urinary retention with indwelling Elkins catheter for the past year, last changed 1 week ago presents with urinary retention today. Patient states he has had only minimal urine output in his leg bag today. He has admitting of increased suprapubic pressure. He denies any fever, vomiting or hematuria. Related Data Home Medications Medication Instructions Recorded Confirmed aspirin 81 mg tablet,delayed 81 mg PO .QOD 12/18/15 05/17/22 release (Aspir-) losartan 50 mg tablet 50 mg PO DAILY 06/12/16 05/17/22 famotidine 20 mg tablet (Acid 20 mg PO BID 07/02/20 05/17/22 Flower Cheniller (famotidine)) rivaroxaban 15 mg tablet (Xarelto) 15 mg PO DAILY 07/02/20 05/17/22 tamsulosin 0.4 mg capsule 0.8 mg PO DAILY 09/25/20 05/17/22 acetaminophen 325 mg capsule 650 mg PO DAILY PRN PRN 07/10/21 05/17/22 (Tylenol) amiodarone 200 mg tablet 200 mg PO DAILY 07/10/21 05/17/22 metoprolol succinate 50 mg 25 mg PO BID 07/10/21 05/17/22 tablet,extended release 24 hr spironolactone 50 mg tablet 50 mg PO DAILY 07/10/21 05/17/22 atorvastatin 40 mg tablet (Lipitor) 20 mg PO HS 04/02/22 05/17/22 furosemide 40 mg tablet 40 mg PO DAILY #30 tab-caps 04/02/22 05/17/22 Previous Rx's Medication Instructions Recorded furosemide 40 mg tablet 40 mg PO DAILY #30 tab-caps 04/02/22 Allergies Allergy/AdvReac Type Severity Reaction Status Date / Time lisinopril AdvReac Intermediate cough Verified 05/17/22 23:53 spironolactone AdvReac Hyperkalemi Verified 05/17/22 23:53 a General Stated Complaint: Urinary EUSEBIO: 3 Review of Systems All systems reviewed & are unremarkable except as noted in HPI and below Constitutional Constitutional: Reports as per HPI, Denies chills and Denies fever(s) Eyes Eyes: Denies blurry vision ENT Ears, Nose, Mouth, and Throat: Denies dizziness, Denies sore throat and Denies throat swelling Cardiovascular Cardiovascular: Denies chest pain and Denies dyspnea Respiratory Respiratory: Denies cough and Denies dyspnea Gastrointestinal Gastrointestinal: Denies abdominal pain, Denies diarrhea and Denies vomiting Genitourinary Genitourinary: Denies hematuria, Denies dysuria and Reports other (urinary retention) Musculoskeletal Musculoskeletal: Denies back pain and Denies numbness Integumentary/Breasts Skin/Breast: Denies lesions and Denies rash Neurologic Neurologic: Denies dizziness, Denies localized weakness and Denies numbness Allergic/Immunologic Allergic/Immunologic: Denies throat swelling PFSH All Active Problems (Updated 05/18/22 @ 01:05 by Milena Rutherford DO) Acute UTI (Acute) COVID-19 (Acute) Acute urinary retention (Acute) Complication, blocked Elkins catheter (Acute) Iron deficiency anemia (Acute) DNR (do not resuscitate) (Acute) Chronic kidney disease (Chronic) Fatigue (Acute) Screening for colon cancer (Acute) Abdominal distention (Acute) Cardiomyopathy (Acute) Ventricular tachycardia (Chronic) Thrombocytopenia (Chronic) Anemia (Chronic) NSTEMI (non-ST elevated myocardial infarction) (Acute) Coronary artery disease (Chronic) Cirrhosis (Acute) Ventricular tachycardia (Chronic) Bone metastasis (Acute) Prostate cancer (Chronic) Incarcerated right inguinal hernia (Acute) Tricuspid regurgitation (Acute) Acute urinary retention (Acute) Urinary retention due to benign prostatic hyperplasia (Acute) Elevated PSA, greater than or equal to 20 ng/ml (Acute) BPH (benign prostatic hyperplasia) (Chronic) Paroxysmal atrial fibrillation (Chronic) Medical History A-fib Anemia Anticoagulation adequate Ascites Bladder outlet obstruction Cardiorenal syndrome Cholelithiasis Congestive heart failure Cor pulmonale Corns and callus GERD (gastroesophageal reflux disease) History of alcohol abuse Hx of congestive heart failure Hx of myocardial infarction 2008 Hyperlipidemia Inguinal hernia Inguinal hernia, recurrent Jaundice Lateral femoral cutaneous entrapment syndrome Leg cramps Myocardial infarct Nail disorder Nocturnal leg cramps Overweight Pain, joint, knee, left Rectal bleeding Surgical History Hx of CABG Hx of cataract surgery Hx of colonoscopy Hx of inguinal hernia surgery S/P CABG (coronary artery bypass graft) 2009 Social History Smoking/Tobacco Use Status: Former Tobacco Use Quit Date: 07/12/89 Tobacco: How many years used: 15 Smoking risk assessment performed?: Yes Alcohol Intake: former Drug use: Never Substance use type: does not use Do you feel safe at home: Yes Do you feel safe in your relationship?: Yes Exam Const General: cooperative and no acute distress Orientation: alert, awake and oriented x3 HENMT Head: normal to inspection Face and sinus: normal facial exam Eyes General: appearance normal, both eyes and all related structures Neck Neck: normal visual inspection and No submandibular swelling Lymphatic: no lymphadenopathy noted Chest Chest: normal inspection of the chest and no tenderness Resp Effort & Inspection: normal respiratory effort and able to speak in complete sentences Auscultation: clear to auscultation bilaterally Cardio Rate: regular rate Rhythm: regular rhythm GI Inspection: normal to inspection and distended Palpation: soft, not firm, not rigid and tender (mildly throughout) Auscultation: hypoactive bowel sounds General: other (elkins catheter in place) Male General Exam: Yes normal external exam Skin General skin exam: no rashes or lesions noted Neuro General: patient alert, patient awake and patient oriented x3 Cognition: normal cognition Speech: speech normal Motor: muscle tone normal throughout Sensory Exam: no sensory deficits noted Extrem General: normal to inspection, full ROM, capillary refill normal, no calf tenderness bilaterally and no edema Psych Appearance: grossly normal Mental Status: mental status grossly normal Speech and Movement: speech and movement normal Affect: normal affect Course Vital Signs Vital signs: Vital Signs Temperature 97.3 F L 05/17/22 23:45 Pulse 77 05/17/22 23:45 Respiratory Rate 16 05/17/22 23:45 Blood Pressure 118/94 H 05/17/22 23:45 Pulse Oximetry 100 05/17/22 23:45 Temperature 97.3 F L 05/17/22 23:45 Temperature Source Tympanic 05/17/22 23:45 Pulse 77 05/17/22 23:45 Respiratory Rate 16 05/17/22 23:45 Respiratory Effort 05/17/22 23:51 Blood Pressure 118/94 H 05/17/22 23:45 Blood Pressure Position Supine 05/17/22 23:45 Pulse Oximetry 100 05/17/22 23:45 Oxygen Delivery Method Room Air 05/17/22 23:45 Oxygen Flow Rate 0 05/17/22 23:45 Pain Level 9 05/17/22 23:52
[2022-05-18 00:50] LABS: Bilirubin Negative (Negative); Blood Large (Negative); Clarity Cloudy (Clear); Glucose Negative (Negative); Ketones Negative (Negative); Leukocyte Esterase Small (Negative); Nitrite Negative (Negative)
--- NOTE | 2022-05-18 00:51 | NUR.NOTE ---
Pt feeling intense pressure in bladder and stated nothing was draining, bladder scan only revealed 215 mL, Attempted to irrigate pts catheter, unable to draw any volume out, obtained assistance from RN TOMMIE, pt catheter was clogged and unable to clear, new catheter placed and urine drained, pt stated he felt relief, FPJ
[2022-05-18 01:01] LABS: C & S Indicated? Yes; RBC >50 HPF (0-2)
[2022-05-18 01:09] VITALS: BP 121/65; PULSE 72; RESP 12; O2SAT 97
--- NOTE | 2022-05-22 13:53 | W.ED.FU ---
Follow Up Plan: Patient seen in the ED on 05/17/22 for acute urinary retention and his elkins catheter was changed at that time. His urine culture results grew greater than 100,000 colonies of Citrobacter and Klebsiella. These results were discussed with Dr. Lazcano. It was reported that patient had no complaint of fever, vomiting or significant pain and felt better after his Elkins catheter was changed. Dr. Lazcano recommends holding on antibiotics at this time unless patient develops UTI symptoms in the future.
== END 2022-05-18 01:23 | disposition home or self-care (01) ==
PROVIDERS: Emergency Provider Physician Assistant; PCP Internal Medicine
DX: R33.9 Retention of urine, unspecified (principal); T83.098A Other mechanical complication of other urinary catheter, initial encounter
CPT/HCPCS: 51702; 87077; 99283; 81003; 81015; 87086; 87186; 99282

== ENCOUNTER 2022-06-01 02:04 | Inpatient (IN) | payer MEDICARE, SELFPAY ==
[2022-06-01] VITALS (40 sets, daily range): BP systolic 97–122; BP diastolic 50–76; PULSE 48–93; RESP 18–30; TEMP 35.6–37; O2SAT 93–99
--- NOTE | 2022-06-01 02:00 | RT.EKG_ITS ---
APPROVED REPORT Exam: Resting ECG Reason for Exam: abd pain, swollen ankles Patient Location: E HR:71 bpm ECG Measurements Heart Rate 71 AXIS SD [id number] P [id number] QRSd 136 QRS 109 QT 401 T 268 QTc 438 Conclusion Atrial fibrillation...? atrial activity Nonspecific intraventricular conduction delay...QRSd >115mS, not LBBB/RBBB afib, rate controlled, normal axis, conduction delay with st segment depression/t wave inverions late rally
[2022-06-01 02:54] LABS: Abs Immature Grans 0.02 10^3/uL (0.0-0.06); Absolute Basophil Count 0.02 10^3/uL (0.0-0.2); Absolute Eosinophil Count 0.09 10^3/uL (0.0-0.7); Absolute Lymphocyte Count 0.23 10^3/uL (1.2-3.4); Absolute Monocyte Count 0.75 10^3/uL (0.1-0.8); Absolute Neutrophil Count 4.14 10^3/uL (1.2-6.7); Basophils % 0.4; Eosinophils % 1.7; HCT 26.8 % (40.0-50.0); HGB 8.1 g/dL (13.5-17.5); Immature Grans % 0.4; Lymphocytes % 4.4; MCH 23.4 pg (27.0-33.0); MCHC 30.2 % (32.0-36.0); MCV 78 fL (80-95); Monocytes % 14.3; Neutrophils % 78.8; Platelet Count 108 10^3/uL (130-400); RBC 3.46 10^6/uL (4.36-5.78); RDW 19.2 % (11.8-14.1); RDW-SD 54.2 fL; WBC 5.25 10^3/uL (4.4-10.8)
--- NOTE | 2022-06-01 02:59 | ED.GENADUL_ITS ---
Discharge Plan Disposition Patient Disposition: Admit to [facility] Condition: Stable Discharge Details Chief Complaint: Abd Prob Clinical Impression: Ascites, Thrombocytopenia, Abdominal pain Primary Care Provider: Rudolph Ryan ED Provider: Aly Betts Home Meds and New Rx's Prescriptions: No Action acetaminophen [Tylenol] 325 mg capsule 650 mg PO DAILY PRN PRN Rx Instructions: for pain amiodarone 200 mg tablet 200 mg PO DAILY metoprolol succinate 50 mg tablet extended release 24 hr 25 mg PO BID Rx Instructions: 1/2 tab in morning and 1/2 tab at hs spironolactone 50 mg tablet 50 mg PO DAILY furosemide 40 mg tablet 40 mg PO DAILY Qty: 30 8RF Xarelto 15 mg tablet 15 mg PO DAILY Rx Instructions: must administer with evening meal famotidine [Acid Forming Acid Dumper (famotidine)] 20 mg tablet 20 mg PO BID aspirin [Aspir-81] 81 MG tablet,delayed release (DR/EC) 81 mg PO .QOD Label Comments: 06/14/17 pt last day taking this is 06/17/17 pt aware, DCW atorvastatin [Lipitor] 40 mg tablet 20 mg PO HS losartan 50 MG tablet 50 mg PO DAILY tamsulosin 0.4 mg capsule 0.8 mg PO DAILY dexlansoprazole 60 mg capsule,biphase delayed releas 60 cap PO DAILY Label Comments: TAKE ONE CAPSULE BY MOUTH EVERY DAY Medical Decision Making 81-year-old male history of cirrhosis, anticoagulated due to A. fib, presents with worsening abdominal distention nausea and vomiting, appears moderately uncomfortable on arrival, afebrile speaking full sentences, abdomen tense ascites on examination large distention, moderate amount of peripheral edema bilateral lower extremities, likely worsening ascites must also consider spontaneous bacterial peritonitis versus less likely bowel obstruction. Given level of discomfort and tense ascites patient will need urgent paracentesis, patient is high risk due to anticoagulation and antiplatelet use as well as longstanding liver disease however given clinical status will likely perform at bedside here in the emergency department to relieve patient's discomfort and for diagnostic purposes as well as easing respirations. Will obtain basic labs, will perform bedside ultrasound to assess for fluid pocket. 3: 28 as expected due to his anticoagulation and liver disease as well as antiplatelet agents patient's PT/INR is elevated and he is relatively thrombocytopenic. Discussed risks and benefits of bedside paracentesis with family, including but not limited to bleeding infection and bowel injury; I believe due to patient's level of discomfort and signs of early respiratory involvement patient will benefit from paresthesias at bedside. Will likely need admission for worsening liver disease, likely component of hepatorenal syndrome. 4: 25 upon reassessment and reevaluation of patient's clinical status labs particularly INR and platelet level and anticoagulation status, to ensure that patient's bleeding risk is as low as possible holding his anticoagulation for 24 hours would be the best course of action. Patient and family are in agreements with this plan. He will be admitted to hold anticoagulation, will continue with diuresis, and will reconsider paracentesis as an inpatient. Sign Out No HPI General Date/Time Provider Initiated Documentation: 06/01/22 02:39 . HPI Narrative: 81-year-old male history of cirrhosis, anticoagulated due to A. fib, presents with abdominal distention nausea abdominal discomfort over the past several days Related Data Home Medications Medication Instructions Recorded Confirmed aspirin 81 mg tablet,delayed 81 mg PO .QOD 12/18/15 06/01/22 release (Aspir-) losartan 50 mg tablet 50 mg PO DAILY 06/12/16 06/01/22 famotidine 20 mg tablet (Acid 20 mg PO BID 07/02/20 06/01/22 Forming Acid Dumper (famotidine)) rivaroxaban 15 mg tablet (Xarelto) 15 mg PO DAILY 07/02/20 06/01/22 tamsulosin 0.4 mg capsule 0.8 mg PO DAILY 09/25/20 06/01/22 acetaminophen 325 mg capsule 650 mg PO DAILY PRN PRN 07/10/21 06/01/22 (Tylenol) amiodarone 200 mg tablet 200 mg PO DAILY 07/10/21 06/01/22 metoprolol succinate 50 mg 25 mg PO BID 07/10/21 06/01/22 tablet,extended release 24 hr spironolactone 50 mg tablet 50 mg PO DAILY 07/10/21 06/01/22 atorvastatin 40 mg tablet (Lipitor) 20 mg PO HS 04/02/22 06/01/22 furosemide 40 mg tablet 40 mg PO DAILY #30 tab-caps 04/02/22 06/01/22 dexlansoprazole 60 mg 60 cap PO DAILY 06/01/22 06/01/22 capsule,biphase delayed release Previous Rx's Medication Instructions Recorded furosemide 40 mg tablet 40 mg PO DAILY #30 tab-caps 04/02/22 Allergies Allergy/AdvReac Type Severity Reaction Status Date / Time lisinopril AdvReac Intermediate cough Verified 06/01/22 02:18 spironolactone AdvReac Hyperkalemi Verified 06/01/22 02:18 a General Stated Complaint: Abd Prob EUSEBIO: 3 Review of Systems Narrative: Review of Systems Constitutional: negative Eyes: negative ENT: negative Cardiovascular: negative Respiratory: negative Gastrointestinal: Abdominal pain, distention, nausea : negative Musculoskeletal: negative Skin: negative Neurologic: negative Psych: negative PFSH All Active Problems (Updated 06/01/22 @ 04:27 by Aly Betts MD) COVID-19 (Acute) Acute urinary retention (Acute) Complication, blocked Lazo catheter (Acute) Ascites (Acute) Thrombocytopenia (Chronic) Abdominal pain (Acute) Iron deficiency anemia (Acute) DNR (do not resuscitate) (Acute) Chronic kidney disease (Chronic) Fatigue (Acute) Screening for colon cancer (Acute) Abdominal distention (Acute) Cardiomyopathy (Acute) Ventricular tachycardia (Chronic) Thrombocytopenia (Chronic) Anemia (Chronic) NSTEMI (non-ST elevated myocardial infarction) (Acute) Coronary artery disease (Chronic) Cirrhosis (Acute) Ventricular tachycardia (Chronic) Bone metastasis (Acute) Prostate cancer (Chronic) Incarcerated right inguinal hernia (Acute) Tricuspid regurgitation (Acute) Acute urinary retention (Acute) Urinary retention due to benign prostatic hyperplasia (Acute) Elevated PSA, greater than or equal to 20 ng/ml (Acute) BPH (benign prostatic hyperplasia) (Chronic) Paroxysmal atrial fibrillation (Chronic) Medical History A-fib Anemia Anticoagulation adequate Ascites Bladder outlet obstruction Cardiorenal syndrome Cholelithiasis Congestive heart failure Cor pulmonale Corns and callus GERD (gastroesophageal reflux disease) History of alcohol abuse Hx of congestive heart failure Hx of myocardial infarction 2007 Hyperlipidemia Inguinal hernia Inguinal hernia, recurrent Jaundice Lateral femoral cutaneous entrapment syndrome Leg cramps Myocardial infarct Nail disorder Nocturnal leg cramps Overweight Pain, joint, knee, left Rectal bleeding Surgical History Hx of CABG Hx of cataract surgery Hx of colonoscopy Hx of inguinal hernia surgery S/P CABG (coronary artery bypass graft) 2009 Social History Smoking/Tobacco Use Status: Former Tobacco Use Quit Date: 07/12/89 Tobacco: How many years used: 15 Smoking risk assessment performed?: Yes Alcohol Intake: former Drug use: Never Substance use type: does not use Do you feel safe at home: Yes Do you feel safe in your relationship?: Yes Exam Narrative Exam Narrative: Physical Examination General: alert, awake, cooperative, uncomfortable appearing HEENT: normocephalic, atraumatic; PERRL, EOM intact, conjunctiva normal; no nasal discharge; slight drying of oral mucosa Neck: supple, trachea midline; full ROM Chest: normal to inspection Respiratory: normal respiratory effort, speaking in full sentences, clear to auscultation, no wheezing, rales or rhonchi Cardiac: regular rate, regular rhythm, S1S2 intact, no murmurs rubs or gallops GI: Tense ascites Skin: Moderately jaundiced Neuro: AAOx3, normal speech, moving all extremities Extremities: Bilateral lower extremity edema Psych: Appropriate mood and affect Course Vital Signs Vital signs: Vital Signs Temperature 37.0 C 06/01/22 02:09 Pulse 93 H 06/01/22 02:09 Respiratory Rate 18 06/01/22 02:09 Blood Pressure 122/63 06/01/22 02:09 Pulse Oximetry 95 06/01/22 02:09 Temperature 37.0 C 06/01/22 02:09 Pulse 93 H 06/01/22 02:09 Respiratory Rate 18 06/01/22 02:09 Respiratory Effort Non-Labored 06/01/22 02:18 Blood Pressure 122/63 06/01/22 02:09 Pulse Oximetry 95 06/01/22 02:09 Pain Level 9 06/01/22 02:09 Lab/Test Results Lab/Test Results: Laboratory Tests Range/Units 06/01/22 02:30 WBC (4.4-10.8) 10^3/uL 5.25 RBC (4.36-5.78) 10^6/uL 3.46 L Hgb (13.5-17.5) g/dL 8.1 L Hct (40.0-50.0) % 26.8 L MCV (80-95) fL 78 L MCH (27.0-33.0) pg 23.4 L MCHC (32.0-36.0) % 30.2 L RDW (11.8-14.1) % 19.2 H Plt Count (130-400) 10^3/uL 108 L MPV (8.0-11.0) fL Immature Gran % 0.4 Neutrophils % 78.8 Lymphocytes % 4.4 Monocytes % 14.3 Eosinophils % 1.7 Basophils % 0.4 Nucleated RBC % (0.0-0.3) % 0.0 Absolute Neutrophils (1.2-6.7) 10^3/uL 4.14 Absolute Lymphocytes (1.2-3.4) 10^3/uL 0.23 L Absolute Monocytes (0.1-0.8) 10^3/uL 0.75 Absolute Eosinophils (0.0-0.7) 10^3/uL 0.09 Absolute Basophils (0.0-0.2) 10^3/uL 0.02
[2022-06-01 03:06] LABS: PTT Activated 48.6 sec (21.0-27.5); Prothrombin Time 19.2 sec (9.3-11.0)
[2022-06-01 03:07] LABS: ALT 21 U/L (16-63); AST 26 U/L (15-37); Albumin 3.1 g/dL (3.4-5.0); Alkaline Phosphatase 266 U/L (46-116); Anion Gap 6.7 mmol/L (3-11); BUN 53 mg/dL (7-18); Bilirubin, Total 1.2 mg/dL (0.2-1.0); CO2 27.3 mmol/L (21.0-32.0); CREATININE 2.5 mg/dL (0.70-1.30); Calcium 8.7 mg/dL (8.5-10.1); Chloride 102 mmol/L (98-107); Estimated GFR 25.02 (mL/min/1.73m2); Glucose 103 mg/dL (74-106); Lipase 71 U/L (73-393); Sodium 136 mmol/L (136-145)
[2022-06-01] MEDS: Normal Saline 500 ML 1000 ML IV (03:08)
[2022-06-01] MEDS: MORPHine 4 MG/ML SYR 2 MG IVP (03:08)
[2022-06-01] MEDS: Ondansetron O.D.T. 4 MG TABEF SL (03:09)
[2022-06-01 04:14] LABS: Source Nasal/Nares
[2022-06-01 04:49] LABS: COVID-19 PCR Negative (Negative)
--- NOTE | 2022-06-01 06:33 | HPE_ITS ---
Date of service: 06/01/22 Time of Service: 06:34 Assessment and Plan Assessment and plan (1) Ascites: Status: Chronic Assessment and plan: This is an 81-year-old woman with chronic alcohol cirrhosis not drinking recently but worsening with ascites and peripheral edema over the last week especially. He is chronically on diuretics with Aldactone and furosemide and did increase his oral Lasix recently without change in his status. He was seen in the ED and paracentesis was entertained but not done because of patient being on Xarelto. His PT/INR was also high. Xarelto will be held and patient will have increased IV Lasix for diuresis with monitoring of labs. He already has CKD and this may worsen before it improves. If he does have a paracentesis he most likely will require albumin. Surgical consultation will be sought by the daytime hospitalist. Patient is a DNR. (2) Chronic kidney disease: Status: Chronic Assessment and plan: Exacerbated with acute worsening of ascites and edema and may worsen with diuresis but monitor closely. Patient is a DNR. (3) Cirrhosis: Status: Chronic Assessment and plan: Monitor liver functions while treating his acute decompensation with ascites worsening and peripheral edema worsening. He may need albumin especially if he has a paracentesis of a large volume. This may help his peripheral edema as well and kidney function. Monitor daily lab. (4) Paroxysmal atrial fibrillation: Status: Chronic Assessment and plan: Rate controlled on medical therapy and on Xarelto which will be held pending paracentesis. (5) Anemia: Status: Chronic Assessment and plan: Chronic and associated with both cirrhosis and CKD. Monitor while treating his acute worsening of peripheral edema and ascites. Transfuse if needed. Patient is a DNR. History of Present Illness History of Present Illness Chief Complaint: Worsening abdominal distention and swelling in legs Narrative: This is an 81-year-old gentleman who has a history of cirrhosis with ascites who stated that he has had increasing abdominal distention and tenseness with discomfort as well as swelling over his lower extremities worsening over the last week with his PCP advising doubling his Lasix from 40 to 80 mg daily. He has not seen improvement and came to the ED for evaluation. With his abdominal distention is having more nausea and vomiting and was very uncomfortable in the ED. He was not having fever and speaking normally. At the time I saw the patient he was slightly more comfortable after treatment in the ED. His abdominal pain was not acute or diffuse but more discomfort from bloating. Lab evaluation did reveal chronic liver failure with his cirrhosis and elevated PT/INR. He is on Xarelto for chronic atrial fibrillation and paracentesis was entertained but not performed and not deemed necessary to reverse the anticoagulation for diagnostic paracentesis at this time. The patient's anticoagulation was held in the ED and will continue to be held with surgical consultation for paracentesis. The patient was not placed on antibiotics but would be diuresed. He was admitted for diuresis and CODE STATUS is a DNR. Review of Systems Narrative: 13 point review of systems otherwise unrevealing or stable. Patient is fairly functional at home. He has not drunk alcohol for years. [facility] All Active Problems (Updated 06/01/22 @ 17:57 by Trevor Harding) COVID-19 (Acute) Acute urinary retention (Acute) Complication, blocked Lazo catheter (Acute) Ascites (Chronic) Thrombocytopenia (Chronic) Abdominal pain (Acute) Iron deficiency anemia (Acute) DNR (do not resuscitate) (Acute) Chronic kidney disease (Chronic) Fatigue (Acute) Screening for colon cancer (Acute) Abdominal distention (Acute) Cardiomyopathy (Acute) Ventricular tachycardia (Chronic) Thrombocytopenia (Chronic) Anemia (Chronic) NSTEMI (non-ST elevated myocardial infarction) (Acute) Coronary artery disease (Chronic) Cirrhosis (Chronic) Ventricular tachycardia (Chronic) Bone metastasis (Acute) Prostate cancer (Chronic) Incarcerated right inguinal hernia (Acute) Tricuspid regurgitation (Acute) Acute urinary retention (Acute) Urinary retention due to benign prostatic hyperplasia (Acute) Elevated PSA, greater than or equal to 20 ng/ml (Acute) BPH (benign prostatic hyperplasia) (Chronic) Paroxysmal atrial fibrillation (Chronic) Medical History A-fib Anemia Anticoagulation adequate Ascites Bladder outlet obstruction Cardiorenal syndrome Cholelithiasis Congestive heart failure Cor pulmonale Corns and callus GERD (gastroesophageal reflux disease) History of alcohol abuse Hx of congestive heart failure Hx of myocardial infarction 2008 Hyperlipidemia Inguinal hernia Inguinal hernia, recurrent Jaundice Lateral femoral cutaneous entrapment syndrome Leg cramps Myocardial infarct Nail disorder Nocturnal leg cramps Overweight Pain, joint, knee, left Rectal bleeding Surgical History Hx of CABG Hx of cataract surgery Hx of colonoscopy Hx of inguinal hernia surgery S/P CABG (coronary artery bypass graft) 2009 Social History Smoking/Tobacco Use Status: Former Tobacco Use Quit Date: 07/12/89 Tobacco: How many years used: 15 Smoking risk assessment performed?: Yes Alcohol Intake: former Drug use: Never Substance use type: does not use Do you feel safe at home: Yes Do you feel safe in your relationship?: Yes Meds Allergies and Home Medications Allergies Allergy/AdvReac Type Severity Reaction Status Date / Time lisinopril AdvReac Intermediate cough Verified 06/01/22 02:18 spironolactone AdvReac Hyperkalemi Verified 06/01/22 02:18 a Home Medications Medication Instructions Recorded Confirmed Type aspirin 81 mg tablet,delayed 81 mg PO .QOD 12/18/15 06/01/22 History release (Aspir-) losartan 50 mg tablet 50 mg PO DAILY 06/12/16 06/01/22 History famotidine 20 mg tablet (Acid 20 mg PO BID 07/02/20 06/01/22 History Epic Cupid Analyst (famotidine)) rivaroxaban 15 mg tablet (Xarelto) 15 mg PO DAILY 07/02/20 06/01/22 History tamsulosin 0.4 mg capsule 0.8 mg PO DAILY 09/25/20 06/01/22 History acetaminophen 325 mg capsule 650 mg PO DAILY PRN PRN 07/10/21 06/01/22 History (Tylenol) amiodarone 200 mg tablet 200 mg PO DAILY 07/10/21 06/01/22 History metoprolol succinate 50 mg 25 mg PO BID 07/10/21 06/01/22 History tablet,extended release 24 hr spironolactone 50 mg tablet 50 mg PO DAILY 07/10/21 06/01/22 History atorvastatin 40 mg tablet (Lipitor) 20 mg PO HS 04/02/22 06/01/22 History furosemide 40 mg tablet 40 mg PO DAILY #30 tab-caps 04/02/22 06/01/22 Rx dexlansoprazole 60 mg 60 cap PO DAILY 06/01/22 06/01/22 History capsule,biphase delayed release Exam Narrative Exam Narrative: General: Patient appears older than stated age, alert and oriented x3 and in no acute distress. He is thin except for his protuberant abdomen. He does not appear to be in pain lying in bed with his head elevated. HEENT: Normocephalic, eyes with pupils equal and reactive light symmetrically, extraocular movement intact and sclera anicteric. Oropharynx with dry mucosa. Neck: Supple without JVD. Back: Stooped posture without CVA tenderness. Lungs: Bronchovesicular breath sound diffusely with no focalizing rales or rhonchi. Fair aeration. Heart: Irregular irregular rhythm with normal rate. 3/6 systolic murmur over apex. No gallop appreciated. Abdomen: Protuberant with positive fluid wave, no focalizing tenderness or guarding being soft over most of the abdomen but deep palpation was uncomfortable. Unable to palpate liver or spleen. Genitalia/rectal: Exam deferred. Skin: Darkly tanned, otherwise normal color, warm and dry. Extremities: 2+ edema over legs which is soft, no clubbing or cyanosis. Fair capillary refill. All joints have fair range of motion. Neuro: Cranial nerves II through XII gross intact, no focalizing motor deficits or tremor. Psych: Normal affect and mood. No abnormal thought processes with patient's mentation clear. Remote and recent memory grossly intact. Results Labs Result diagrams: 06/01/22 02:30 06/01/22 02:30 Labs: Laboratory Results - last 24 hr 06/01/22 06/01/22 06/01/22 02:30 02:30 02:30 WBC 5.25 RBC 3.46 L Hgb 8.1 L Hct 26.8 L MCV 78 L MCH 23.4 L MCHC 30.2 L RDW 19.2 H Plt Count 108 L MPV Immature Gran % 0.4 Neutrophils % 78.8 Lymphocytes % 4.4 Monocytes % 14.3 Eosinophils % 1.7 Basophils % 0.4 Nucleated RBC % 0.0 Absolute Neutrophils 4.14 Absolute Lymphocytes 0.23 L Absolute Monocytes 0.75 Absolute Eosinophils 0.09 Absolute Basophils 0.02 PT 19.2 H INR 2.0 H APTT 48.6 H Sodium 136 Potassium 5.0 Chloride 102 Carbon Dioxide 27.3 Anion Gap 6.7 BUN 53 H Creatinine 2.5 H Est GFR (CKD-EPI 2020) 25.02 Glucose 103 Calcium 8.7 Total Bilirubin 1.2 H AST 26 ALT 21 Alkaline Phosphatase 266 H Total Protein 7.0 Albumin 3.1 L Lipase 71 COVID-19 Source SARS-CoV-2 (PCR) Patient ABO/Rh Antibody Screen 06/01/22 06/01/22 03:35 04:04 WBC RBC Hgb Hct MCV MCH MCHC RDW Plt Count MPV Immature Gran % Neutrophils % Lymphocytes % Monocytes % Eosinophils % Basophils % Nucleated RBC % Absolute Neutrophils Absolute Lymphocytes Absolute Monocytes Absolute Eosinophils Absolute Basophils PT INR APTT Sodium Potassium Chloride Carbon Dioxide Anion Gap BUN Creatinine Est GFR (CKD-EPI 2020) Glucose Calcium Total Bilirubin AST ALT Alkaline Phosphatase Total Protein Albumin Lipase COVID-19 Source Nasal/Nares SARS-CoV-2 (PCR) Negative Patient ABO/Rh O Positive Antibody Screen NEGATIVE Last Vital Signs Temp 36.6 C 06/01/22 05:54 Pulse 75 06/01/22 05:54 Resp 22 06/01/22 05:54 BP 110/64 06/01/22 05:54 Pulse Ox 96 06/01/22 05:54
[2022-06-01] MEDS: Metoprolol 25 MG TAB PO (08:54)
[2022-06-01] MEDS: Losartan 50 MG TAB PO (08:54)
[2022-06-01] MEDS: Spironolactone 50 MG TAB PO (08:55)
[2022-06-01] MEDS: Tamsulosin 0.4 MG CAPCR 0.8 MG PO (08:55)
[2022-06-01] MEDS: Furosemide 40 MG/4 ML VIAL IVP ×2 (08:55→16:01)
[2022-06-01] MEDS: Amiodarone 200 MG TAB PO (08:55)
[2022-06-01] MEDS: Famotidine 20 MG TAB PO ×2 (08:55→19:32)
[2022-06-01] MEDS: Normal Saline Flush 10 ML SYR IVP ×2 (08:56→19:33)
--- NOTE | 2022-06-01 12:45 | RT.EKG_ITS ---
APPROVED REPORT Exam: Resting ECG Reason for Exam: STAT Patient Location: I HR:76 bpm ECG Measurements Heart Rate 76 AXIS DC [id number] P [id number] QRSd 142 QRS 104 QT 460 T 164 QTc 518 Conclusion Atrial fibrillation...? atrial activity Nonspecific intraventricular conduction delay...QRSd >115mS, not LBBB/RBBB Borderline repol abnrm, anterolateral leads...ST dep, T flat/neg, I aVL V2-V6
[2022-06-01] MEDS: Atropine 1 MG/10 ML SYRINGE 0.5 MG IVP (13:12)
--- NOTE | 2022-06-01 13:21 | INITIAL_ITS ---
- If Service Date Differs Date of service: 06/01/22 Time of Service: 13:22 Care Management Initial Assess REASON FOR HOSPITALIZATION:: Ascites, CKD PAST MEDICAL HISTORY/PAST SURGICAL HISTORY:: All Active Problems . COVID-19 (Acute). Acute urinary retention (Acute). Complication, blocked Lazo catheter (Acute). Ascites (Acute). Thrombocytopenia (Chronic). Abdominal pain (Acute). Iron deficiency anemia (Acute). DNR (do not resuscitate) (Acute). Chronic kidney disease (Chronic). Fatigue (Acute). Screening for colon cancer (Acute). Abdominal distention (Acute). Cardiomyopathy (Acute). Ventricular tachycardia (Chronic). Thrombocytopenia (Chronic). Anemia (Chronic). NSTEMI (non-ST elevated myocardial infarction) (Acute). Coronary artery disease (Chronic). Cirrhosis (Acute). Ventricular tachycardia (Chronic). Bone metastasis (Acute). Prostate cancer (Chronic). Incarcerated right inguinal hernia (Acute). Tricuspid regurgitation (Acute). Acute urinary retention (Acute). Urinary retention due to benign prostatic hyperplasia (Acute). Elevated PSA, greater than or equal to 20 ng/ml (Acute). BPH (benign prostatic hyperplasia) (Chronic). Paroxysmal atrial fibrillation (Chronic). Medical History . A-fib. Anemia. Anticoagulation adequate. Ascites. Bladder outlet obstruction. Cardiorenal syndrome. Cholelithiasis. Congestive heart failure. Cor pulmonale. Corns and callus. GERD (gastroesophageal reflux disease). History of alcohol abuse. Hx of congestive heart failure. Hx of myocardial infarction. 2007. Hyperlipidemia. Inguinal hernia. Inguinal hernia, recurrent. Jaundice. Lateral femoral cutaneous entrapment syndrome. Leg cramps. Myocardial infarct. Nail disorder. Nocturnal leg cramps. Overweight. Pain, joint, knee, left. Rectal bleeding. Surgical History . Hx of CABG. Hx of cataract surgery. Hx of colonoscopy. Hx of inguinal hernia surgery. S/P CABG (coronary artery bypass graft). 2009 PREVIOUS FUNCTIONAL STATUS/SOCIAL/FAMILY SUPPORTS:: Jonathan, who goes by his middle name of Gasper, resides in [place] in a single family home with his , Therese. He has 2 adult children. He and Therese also had a daughter who of cancer 2 years ago at the age of 42. 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 He is independent at baseline but does use a cane. CURRENT FUNCTIONAL STATUS:: Gasper was sitting up in bed when CM met with him. He had a rapid response late this morning and stated that he is feeling a lot better now than he was then. Gasper and his discussed their goals of care with the provider and indicated that he did not want to transfer to the ICU. They want limited interventions which is consistent with his Advanced Directives. ADVANCE DIRECTIVES:: COLST on file Has patient been provided with info about the portal/API?: Yes Did the patient sign up for the portal?: No CODE STATUS:: DNR CODE STATUS COMMENT:: will allow intubation for anesthesia if surgery needed INSURANCE COVERAGE / FINANCIAL ISSUES:: Medicare. Financial Assist 100 CURRENT HOME/COMMUNITY SERVICES/EQUIPMENT:: no services. uses a cane PRIMARY CARE PHYSICIAN:: Rudolph Ryan POTENTIAL DISCHARGE NEEDS:: Follow uyp with PCP and plan of care PATIENT/FAMILY EDUCATION NEEDS:: Review of discharge instructions, limitations, activity, follow up plan, Ask Me Three TRANSPORTATION:: via private vehicle with family PLAN:: Anticipate Gasper will discharge home with no new services. He will follow up with community providers and plan of carre and transport with family. CM will continue to support Gasper and his discharge needs.
--- NOTE | 2022-06-01 16:13 | W.SURGCON ---
Date of service: 06/01/22 Time of Service: 16:13 Assessment and Plan Assessment and plan (1) Ascites: Status: Acute Assessment and plan: We talked about the risks and benefits of diagnostic paracentesis. I can make arrangements to do that in the procedure room tomorrow with ultrasound guidance. He should be n.p.o. after midnight. History of Present Illness History of Present Illness Chief Complaint: Abdominal discomfort with nausea Narrative: Jonathan is an 81-year-old male with a past medical history that is most significant for dilated cardiomyopathy and cirrhosis who presents with several days of increasing abdominal distention, discomfort, and occasional nausea. Upon evaluation in the ER, consideration was given to spontaneous bacterial peritonitis as a potential diagnosis. Diagnostic paracentesis was considered, but given his therapeutic anticoagulation for paroxysmal atrial fibrillation, the decision was made to hold off on that for now. His anticoagulant was held, and he was admitted to the hospital. I am consulted for paracentesis. Review of Systems Constitutional Constitutional: Reports fatigue, Reports lethargy and Reports weakness Eyes Eyes: Denies blurry vision and Denies change in vision ENT Ears, Nose, Mouth, and Throat: Denies nasal congestion and Reports disequilibrium Cardiovascular Cardiovascular: Denies chest pain, Reports rapid heart rate, Reports dyspnea on exertion and Reports orthopnea Respiratory Respiratory: Reports cough, Denies pain with cough and Reports dyspnea on exertion Gastrointestinal Gastrointestinal: Reports abdominal pain, Denies melena, Reports bloating, Reports cramping, Reports nausea and Denies vomiting Genitourinary Genitourinary: Reports system reviewed and no additional complaints, except as documented Musculoskeletal Musculoskeletal: Reports muscle weakness Neurologic Neurologic: Reports behavioral changes, Reports disequilibrium and Reports weakness Psychiatric Psychiatric: Reports behavioral changes Endocrine Endocrine: Reports fatigue Hematologic/Lymphatic Hematologic/Lymphatic: Reports easy bleeding and Reports easy bruising PFSH All Active Problems COVID-19 (Acute) Acute urinary retention (Acute) Complication, blocked Lazo catheter (Acute) Ascites (Acute) Thrombocytopenia (Chronic) Abdominal pain (Acute) Iron deficiency anemia (Acute) DNR (do not resuscitate) (Acute) Chronic kidney disease (Chronic) Fatigue (Acute) Screening for colon cancer (Acute) Abdominal distention (Acute) Cardiomyopathy (Acute) Ventricular tachycardia (Chronic) Thrombocytopenia (Chronic) Anemia (Chronic) NSTEMI (non-ST elevated myocardial infarction) (Acute) Coronary artery disease (Chronic) Cirrhosis (Acute) Ventricular tachycardia (Chronic) Bone metastasis (Acute) Prostate cancer (Chronic) Incarcerated right inguinal hernia (Acute) Tricuspid regurgitation (Acute) Acute urinary retention (Acute) Urinary retention due to benign prostatic hyperplasia (Acute) Elevated PSA, greater than or equal to 20 ng/ml (Acute) BPH (benign prostatic hyperplasia) (Chronic) Paroxysmal atrial fibrillation (Chronic) Medical History A-fib Anemia Anticoagulation adequate Ascites Bladder outlet obstruction Cardiorenal syndrome Cholelithiasis Congestive heart failure Cor pulmonale Corns and callus GERD (gastroesophageal reflux disease) History of alcohol abuse Hx of congestive heart failure Hx of myocardial infarction 2007 Hyperlipidemia Inguinal hernia Inguinal hernia, recurrent Jaundice Lateral femoral cutaneous entrapment syndrome Leg cramps Myocardial infarct Nail disorder Nocturnal leg cramps Overweight Pain, joint, knee, left Rectal bleeding Surgical History Hx of CABG Hx of cataract surgery Hx of colonoscopy Hx of inguinal hernia surgery S/P CABG (coronary artery bypass graft) 2009 Social History Smoking/Tobacco Use Status: Former Tobacco Use Quit Date: 07/12/89 Tobacco: How many years used: 15 Smoking risk assessment performed?: Yes Alcohol Intake: former Drug use: Never Substance use type: does not use Do you feel safe at home: Yes Do you feel safe in your relationship?: Yes Exam Const General: cooperative and ill appearing Nutritional Appearance: overweight Orientation: awake and oriented x3 HENMT Head: normal to inspection Ears: hearing grossly normal bilaterally Mouth: moist mucous membranes Eyes Pupils: PERRL Neck Neck: normal visual inspection and no lymphadenopathy Carotids: normal carotid upstroke Lymphatic: no lymphadenopathy noted Chest Chest: normal inspection of the chest Resp Effort & Inspection: decreased respiratory effort (Difficulty with deep inspiration) and labored Auscultation: diminished lung sounds (Diminished at the bases bilaterally) and rhonchi Cardio Jugular venous pressure: JVD Rhythm: abnormal rhythm Heart Sounds: S1 normal and S2 normal GI Inspection: distended Palpation: firm, no guarding, hernia (Umbilical and left inguinal both reducible), tender and ascites Percussion: dullness to percussion and fluid wave Auscultation: normal bowel sounds Skin General skin exam: dry skin Lesions: no lesions Neuro General: patient awake Speech: other (Speech is a little slow) Extrem General: pedal edema Results Last Vital Signs Temp 96.1 F L 06/01/22 13:04 Pulse 66 06/01/22 13:12 Resp 24 06/01/22 13:04 BP 105/65 06/01/22 11:19 Pulse Ox 97 06/01/22 13:04 Labs Result diagrams: 06/01/22 02:30 06/01/22 02:30 Labs: Laboratory Results - last 24 hr 06/01/22 06/01/22 06/01/22 02:30 02:30 02:30 WBC 5.25 RBC 3.46 L Hgb 8.1 L Hct 26.8 L MCV 78 L MCH 23.4 L MCHC 30.2 L RDW 19.2 H Plt Count 108 L MPV Immature Gran % 0.4 Neutrophils % 78.8 Lymphocytes % 4.4 Monocytes % 14.3 Eosinophils % 1.7 Basophils % 0.4 Nucleated RBC % 0.0 Absolute Neutrophils 4.14 Absolute Lymphocytes 0.23 L Absolute Monocytes 0.75 Absolute Eosinophils 0.09 Absolute Basophils 0.02 PT 19.2 H INR 2.0 H APTT 48.6 H Sodium 136 Potassium 5.0 Chloride 102 Carbon Dioxide 27.3 Anion Gap 6.7 BUN 53 H Creatinine 2.5 H Est GFR (CKD-EPI 2020) 25.02 Glucose 103 Calcium 8.7 Total Bilirubin 1.2 H AST 26 ALT 21 Alkaline Phosphatase 266 H Total Protein 7.0 Albumin 3.1 L Lipase 71 COVID-19 Source SARS-CoV-2 (PCR) Patient ABO/Rh Antibody Screen 06/01/22 06/01/22 03:35 04:04 WBC RBC Hgb Hct MCV MCH MCHC RDW Plt Count MPV Immature Gran % Neutrophils % Lymphocytes % Monocytes % Eosinophils % Basophils % Nucleated RBC % Absolute Neutrophils Absolute Lymphocytes Absolute Monocytes Absolute Eosinophils Absolute Basophils PT INR APTT Sodium Potassium Chloride Carbon Dioxide Anion Gap BUN Creatinine Est GFR (CKD-EPI 2020) Glucose Calcium Total Bilirubin AST ALT Alkaline Phosphatase Total Protein Albumin Lipase COVID-19 Source Nasal/Nares SARS-CoV-2 (PCR) Negative Patient ABO/Rh O Positive Antibody Screen NEGATIVE
[2022-06-01] MEDS: diphenhydrAMINE 25 MG CAP PO (17:37)
--- NOTE | 2022-06-01 17:56 | W.EVENT ---
Date of service: 06/01/22 Time of Service: 17:57 Event Note: Rapid response called this AM when patient was found to be unresponsive, ashen appearing. Initial HR in the 20's then the 30's. SBP manually obtained was 90. Atropine 1 mg administered and his heart rate improved into the 70-80's. Pt known to be in afib chronically. EKG confirmed afib. He returned to his normal level of consciousness. His metoprolol is being held. Telemetry monitoring. Time Spent with Patient Time spent in critical care(minutes): 30 min Time Spent Included: Coordination of care, Chart review, Time at immediate bedside, Discussing critically ill care with other medical staff and Discussing Hx and/or treatment with family
[2022-06-01] MEDS: Atorvastatin 40 MG TAB 20 MG PO (21:44)
[2022-06-01] MEDS: LORazepam 1 MG TAB PO (22:59)
[2022-06-02] VITALS (8 sets, daily range): BP systolic 110–122; BP diastolic 56–70; PULSE 74–89; RESP 18–22; TEMP 36.4–36.9; O2SAT 94–97
[2022-06-02] MEDS: Normal Saline Flush 10 ML SYR IVP ×3 (05:35→17:34)
[2022-06-02 05:50] LABS: HCT 25.4 % (40.0-50.0); HGB 7.6 g/dL (13.5-17.5); MCH 23.5 pg (27.0-33.0); MCHC 29.9 % (32.0-36.0); MCV 78 fL (80-95); Platelet Count 101 10^3/uL (130-400); RBC 3.24 10^6/uL (4.36-5.78); RDW 19.1 % (11.8-14.1); RDW-SD 54.4 fL; WBC 5.58 10^3/uL (4.4-10.8)
[2022-06-02 06:01] LABS: INR 1.6 (0.9-1.1); Prothrombin Time 15.5 sec (9.3-11.0)
[2022-06-02 06:03] LABS: ALT 18 U/L (16-63); AST 25 U/L (15-37); Alkaline Phosphatase 228 U/L (46-116); Anion Gap 9.7 mmol/L (3-11); BUN 55 mg/dL (7-18); Bilirubin, Total 1.3 mg/dL (0.2-1.0); CO2 24.3 mmol/L (21.0-32.0); CREATININE 2.6 mg/dL (0.70-1.30); Calcium 8.8 mg/dL (8.5-10.1); Chloride 102 mmol/L (98-107); Estimated GFR 23.87 (mL/min/1.73m2); Glucose 92 mg/dL (74-106); Magnesium 2.7 mg/dL (1.8-2.4); Potassium 5.2 mmol/L (3.5-5.1); Sodium 136 mmol/L (136-145); Total Protein 6.6 g/dL (6.4-8.2)
[2022-06-02] MEDS: Furosemide 40 MG/4 ML VIAL IVP (07:57)
[2022-06-02] MEDS: Tamsulosin 0.4 MG CAPCR 0.8 MG PO (07:58)
[2022-06-02] MEDS: Dexlansoprazole 30 MG CAP 60 MG PO (07:58)
[2022-06-02] MEDS: Amiodarone 200 MG TAB PO (07:59)
[2022-06-02] MEDS: Famotidine 20 MG TAB PO ×2 (07:59→19:23)
[2022-06-02] MEDS: Losartan 50 MG TAB PO (07:59)
[2022-06-02] MEDS: Spironolactone 50 MG TAB PO (07:59)
--- NOTE | 2022-06-02 08:55 | PDOC.CMPRO ---
- If Service Date Differs Date of service: 06/02/22 Time of Service: 08:55 Care Management Progress Note S/O:Gasper was sitting up in his chair visiting with his and [id number] when CM met with him. Dr. Gay was also present to obtain consent to perform a paracentesis. The procedure will be done today and, per provider, if all goes well, Gasper may be able to go home later this afternoon. he informed CM that he is feeling better and would like to be discharged, if possible. A: Gasper is an 81 year old man admitted on 06/01/22 with ascites and CKD P:Anticipate Gasper will discharge home with no new services. He will follow up with community providers and plan of care and transport with family. CM will continue to support Gasper and his discharge needs.
--- NOTE | 2022-06-02 14:11 | W.PM.OP ---
Date of service: 06/02/22 Time of Service: 14:11 Operative Note Operative Note DATE OF PROCEDURE: 06/02/22 PRE-OP DIAGNOSIS: ascites POST-OP DIAGNOSIS: same PROCEDURE: Diagnostic paracentesis SURGEON: Hector Gay ANESTHESIA TYPE: Local By Surgeon ESTIMATED BLOOD LOSS: 5 PATHOLOGY: other (Cell count, albumin, culture, LDH, amylase and glucose) COMPLICATIONS: None Patient was transported to: floor Patient's condition: stable Indications: Jonathan is an 81-year-old male with chronic liver insufficiency who comes to the emergency department with abdominal pain and fatigue. Procedure Description: I started by performing a limited ultrasound of the abdomen to identify appropriate site for paracentesis. Next, I selected the right lower quadrant as the ideal site for paracentesis. I then prepped and draped the abdomen. Next, using ultrasound guidance, I anesthetized the skin with 1% lidocaine with epinephrine. I used the ultrasound to guide the needle down to the peritoneal level which was also anesthetized. I then made a small incision in the skin with a 11 blade scalpel. Next, I advanced the 5 Hebrew paracentesis needle and catheter through the incision and into the peritoneal cavity under the direct vision of the ultrasound. I aspirated slightly turbid, but straw-colored appearing ascites. Next, I gently advance the catheter and remove the needle. I affixed drainage tubing, and began draining the ascites with the assistance of Vacutainer's. I drained 2050 mL of ascites. As the flow decreased, I assisted the patient to the right lateral decubitus position to improve drainage. Once the ascites stopped flowing, I removed the catheter and used Band-Aids to dress the wound.
[2022-06-02 14:38] LABS: Clarity Cloudy; Nucleated Cells 215 uL (0)
[2022-06-02 14:46] LABS: Mononuclear Cells 82 %; Polynuclear Cells 18 %
--- NOTE | 2022-06-02 15:54 | PGE_ITS ---
Date of Service Date of service: 06/02/22 Time of Service: 15:55 Assessment and Plan Assessment and plan (1) Ascites: Status: Chronic Assessment and plan: This is an 81-year-old man with chronic alcohol cirrhosis not drinking recently but worsening with ascites and peripheral edema over the last week especially. He is chronically on diuretics with Aldactone and furosemide and did increase his oral Lasix recently without change in his status. He was seen in the ED and paracentesis was entertained but not done because of patient being on Xarelto. His PT/INR was also high. Xarelto will be held and he underwent paracentesis by Dr Gay, general surgery. 2050ml somewhat turbid, yellow fluid removed. He was on BID IV lasix at 40mg. Change to daily starting tomorrow (his home dose). Cont spironolactone. (2) Chronic kidney disease: Status: Chronic Assessment and plan: Presented with creatinine of 2.5 (above his baseline in the high 1's). Creatinine now 2.6. Monitor. (3) Cirrhosis: Status: Chronic Assessment and plan: Bilirubin 1.3. LFT's normal. (4) Paroxysmal atrial fibrillation: Status: Chronic Assessment and plan: Rate controlled on amiodarone. Restart xarelto; s/p paracentesis. No further metoprolol; became bradycardic and symptomatic. Required a dose of atropine. (5) Anemia: Status: Chronic Assessment and plan: Chronic and associated with both cirrhosis and CKD. Hgb did drop to 7.6 today. MCV and Iron level low. Venofer 300mg infusion today. Hgb in AM. Subjective Subjective Patient reports: feels better (s/p paracentesis. ), tolerating a regular diet and afebrile; denies shortness of breath Exam Narrative Exam Narrative: General: Patient appears older than stated age, alert and oriented x3 and in no acute distress. He is thin except for his protuberant abdomen. Asleep/arousable with voice. Lungs: Clear. Nonlabored breathing. Heart: Irregular irregular rhythm with normal rate. 3/6 systolic murmur over a pex. Abdomen: Protuberant. NT. Skin:w/o rash/lesions. Extremities: 2+ edema over legs which is soft, no clubbing or cyanosis. All joints have fair range of motion. Neuro: no focalizing motor deficits or tremor. Psych: Normal affect and mood. No abnormal thought processes with patient's mentation clear. . Objective Last Vital Signs Temp 36.4 C L 06/02/22 15:05 Pulse 77 06/02/22 15:05 Resp 20 06/02/22 15:05 BP 111/56 L 06/02/22 15:05 Pulse Ox 97 06/02/22 15:05 Laboratory Results - last 24 hr 06/01/22 06/01/22 06/02/22 03:39 03:43 05:25 WBC RBC Hgb Hct MCV MCH MCHC RDW Plt Count MPV PT INR Sodium 136 Potassium 5.2 H Chloride 102 Carbon Dioxide 24.3 Anion Gap 9.7 BUN 55 H Creatinine 2.6 H Est GFR (CKD-EPI 2020) 23.87 Glucose 92 Calcium 8.8 Magnesium 2.7 H Total Bilirubin 1.3 H AST 25 ALT 18 Alkaline Phosphatase 228 H Total Protein 6.6 Albumin 3.0 L Fluid Source Cancelled Fluid Color Cancelled Fluid Clarity Cancelled Fluid WBC Cancelled Fld Polynuclear WBCs % Cancelled Fluid Mononuclear Cell Cancelled Fluid Other Cells Cancelled Fluid Glucose Cancelled Path Cons Comment Cancelled 06/02/22 06/02/22 06/02/22 05:25 05:25 13:54 WBC 5.58 RBC 3.24 L Hgb 7.6 L Hct 25.4 L MCV 78 L MCH 23.5 L MCHC 29.9 L RDW 19.1 H Plt Count 101 L MPV PT 15.5 H INR 1.6 H Sodium Potassium Chloride Carbon Dioxide Anion Gap BUN Creatinine Est GFR (CKD-EPI 2020) Glucose Calcium Magnesium Total Bilirubin AST ALT Alkaline Phosphatase Total Protein Albumin Fluid Source Pleural Fluid Color Yellow Fluid Clarity Cloudy Fluid WBC 215 Fld Polynuclear WBCs % 18 Fluid Mononuclear Cell 82 Fluid Other Cells Fluid Glucose Path Cons Comment
[2022-06-02 16:18] LABS: Source Peritoneal
[2022-06-02] MEDS: IRON SUCROSE COMPLEX 300 MG in Normal Saline 250 ML 167 MG IVPB (17:33)
[2022-06-02] MEDS: Rivaroxaban 15 MG TABLET PO (17:33)
[2022-06-02] MEDS: LORazepam 1 MG TAB PO (21:26)
[2022-06-02] MEDS: Atorvastatin 40 MG TAB 20 MG PO (21:27)
[2022-06-02 22:06] LABS: Albumin, Body FLuid 1.5 g/dL (See Note); Glucose, Fluid 88 mg/dL (See Note)
[2022-06-03] VITALS (12 sets, daily range): BP systolic 94–111; BP diastolic 54–64; PULSE 55–95; RESP 14–18; TEMP 35.8–36.6; O2SAT 94–98
[2022-06-03 06:58] LABS: ALT 15 U/L (16-63); AST 25 U/L (15-37); Albumin 2.7 g/dL (3.4-5.0); Alkaline Phosphatase 224 U/L (46-116); Anion Gap 8.1 mmol/L (3-11); BUN 56 mg/dL (7-18); CO2 25.9 mmol/L (21.0-32.0); CREATININE 2.5 mg/dL (0.70-1.30); Calcium 8.7 mg/dL (8.5-10.1); Chloride 102 mmol/L (98-107); Estimated GFR 25.02 (mL/min/1.73m2); Glucose 94 mg/dL (74-106); Potassium 4.5 mmol/L (3.5-5.1); Sodium 136 mmol/L (136-145); Total Protein 6.1 g/dL (6.4-8.2)
[2022-06-03] MEDS: Tamsulosin 0.4 MG CAPCR 0.8 MG PO (08:12)
[2022-06-03] MEDS: Dexlansoprazole 30 MG CAP 60 MG PO (08:12)
[2022-06-03] MEDS: Losartan 50 MG TAB PO (08:12)
[2022-06-03] MEDS: Famotidine 20 MG TAB PO (08:13)
[2022-06-03] MEDS: Amiodarone 200 MG TAB PO (08:13)
[2022-06-03] MEDS: Spironolactone 50 MG TAB PO (08:13)
[2022-06-03] MEDS: Normal Saline Flush 10 ML SYR IVP ×3 (08:13→14:13)
[2022-06-03] MEDS: Furosemide 40 MG TAB PO (08:13)
[2022-06-03 08:22] LABS: HCT 25.7 % (40.0-50.0); HGB 7.7 g/dL (13.5-17.5)
--- NOTE | 2022-06-03 09:12 | PDOC.CMDIS ---
- If Service Date Differs Date of service: 06/03/22 Time of Service: 09:12 LACE Index Scoring Tool - Questions: Length of Stay (in days): 2 Acuity (Admit via E.D.?): Yes Comorbidities: Previous M.I., Any Tumor, Liver or Renal Disease E.D. Visits: 8 - Answers: Total Score: 14 Risk of Readmission: High Risk Care Management Discharge Reason for Hospitalization: Ascites, CKD Discharge Plan: Gasper will discharge home with no new services. He will follow up with community providers and plan of care and transport with family. Patient/Family Education Needs: Review of discharge instructions, limitations, activity, follow up plan, Ask Me Three
--- NOTE | 2022-06-03 11:58 | PDOC.CMPRO ---
- If Service Date Differs Date of service: 06/03/22 Time of Service: 11:58 Care Management Progress Note S/O:Gasper was sitting up in his chair when CM met with him. He was pleasant and agreeable to conversation. Gasper continues to verbalize his desire to go home. He had a paracentesis done yesterday with the removal of over 2000cc of fluid and an Echocardiogram done this morning. It is anticipated that Gasper may be ready for discharge this afternoon. A: Gasper is an 81 year old man admitted on 06/01/22 with ascites and CKD P:Anticipate Gasper will discharge home with no new services. He will follow up with community providers and plan of care and transport with family. CM will continue to support Gasper and his discharge needs.
[2022-06-03 12:52] LABS: Fluid Type Peritoneal; Lactate Dehydrogenase (LD), BF 95 U/L
--- NOTE | 2022-06-03 14:30 | W.PM.DS.N ---
Date of service: 06/03/22 Time of Service: 14:31 DS: Diagnosis Discharge Diagnosis (1) Ascites: Status: Chronic (2) Chronic kidney disease: Status: Chronic (3) Cirrhosis: Status: Chronic (4) Paroxysmal atrial fibrillation: Status: Chronic (5) Anemia: Status: Chronic Discharge Plan Disposition Patient Disposition: Home Condition: Improving Discharge Details Reason For Visit: Ascites with Cirrhosis, PAF, CKD with Anemia Admit Date/Time: 06/01/22 04:27 Admit Provider: Trevor Harding Attending Provider: Trevor Harding [facility] Hospital Course: This is an 81-year-old gentleman who has a history of cirrhosis with ascites who stated that he has had increasing abdominal distention and tenseness with discomfort as well as swelling over his lower extremities worsening over the last week with his PCP advising doubling his Lasix from 40 to 80 mg daily.? He has not seen improvement and came to the ED for evaluation.? With his abdominal distention is having more nausea and vomiting and was very uncomfortable in the ED.? He was not having fever and speaking normally.? At the time hospitalist saw the patient he was slightly more comfortable after treatment in the ED.? His abdominal pain was not acute or diffuse but more discomfort from bloating.? Lab evaluation did reveal chronic liver failure with his cirrhosis and elevated PT/INR.? He is on Xarelto for chronic atrial fibrillation and paracentesis was entertained but not performed and not deemed necessary to reverse the anticoagulation for diagnostic paracentesis at that time.? The patient's anticoagulation was held in the ED with surgical consultation for paracentesis.? The patient was not placed on antibiotics but would be diuresed.? The following morning he was noted to be minimally responsive and ashen. HR in the upper 20's then 30's. Atropine administered and his pulse returned to a range between the 70's and 80's. He had received metoprolol; this was then discontinued. After several doses of IV lasix, he was changed back to oral. Gen surgery performed paracentesis with the removal of 2050ml of ascites. The fluid was yellow, cloudy. WBC count of 215. 18% polynuclear. Glucose 88. Fluid LDH and amylase pending. He had no elevated blood WBC count. After the paracentesis he had no abd tenderness. His hgb did decrease and was 7.7 on day of discharge. He was transfused a unit of pRBCs. He will have a follow up CBC in 1 week. His creatinine was 2.5 on day of admission as well as at time of discharge. His baseline appears to be in the upp 1's. A BMP will be obtained in 1 week. PCP follow up in 1-2 weeks. Home Meds and New Rx's Prescriptions: Continued acetaminophen [Tylenol] 325 mg capsule 650 mg PO DAILY PRN PRN Rx Instructions: for pain amiodarone 200 mg tablet 200 mg PO DAILY spironolactone 50 mg tablet 50 mg PO DAILY furosemide 40 mg tablet 40 mg PO DAILY Qty: 30 8RF Xarelto 15 mg tablet 15 mg PO DAILY Rx Instructions: must administer with evening meal famotidine [Acid Roller Skate [employer]r (famotidine)] 20 mg tablet 20 mg PO BID aspirin [Aspir-81] 81 MG tablet,delayed release (DR/EC) 81 mg PO .QOD Label Comments: 06/14/17 pt last day taking this is 06/17/17 pt aware, DCW atorvastatin [Lipitor] 40 mg tablet 20 mg PO HS losartan 50 MG tablet 50 mg PO DAILY tamsulosin 0.4 mg capsule 0.8 mg PO DAILY dexlansoprazole 60 mg capsule,biphase delayed releas 60 cap PO DAILY Label Comments: TAKE ONE CAPSULE BY MOUTH EVERY DAY Discontinued metoprolol succinate 50 mg tablet extended release 24 hr 25 mg PO BID Rx Instructions: 1/2 tab in morning and 1/2 tab at hs Discharge Instructions Additional Instructions: Lab to be drawn in the next 5-7 days. Return to the emergency room for any fever, concerning abdominal pain, nausea/vomiting. Activity:: Activity as Tolerated Equipment/Supplies:: No Equipment Needed Diet:: Resume usual home diet. Discharge Orders Discharge Orders: Discharge Order (Routine); Ordered 06/03/22 Ordered By: Aly Goins Other Ambulatory Orders: Basic Metabolic Panel (Routine) Timeframe: 1 Week Location: None Selected Ordered By: Aly Goins Complete Blood Count w/Diff (Routine) Location: None Selected Ordered By: Aly Goins DS: Summary Time Spent with Patient providing and/or coordinating discharge services: Greater than 30 minutes Status at Discharge Functional status at discharge: uses cane/walker Overall status at discharge: patient is not back to baseline Mental Status: mental status grossly normal Speech and Movement: speech clear Mood: congruent mood Affect: normal affect Exam Narrative Exam Narrative: General: Sitting in recliner; pRBCs infusing. Pleasant and conversant. Lungs: Clear. Nonlabored breathing. Heart: Irregular irregular rhythm with normal rate. 3/6 systolic murmur over apex. Abdomen: Protuberant. NT. Skin:w/o rash/lesions. Extremities: 2+ edema over legs which is soft, no clubbing or cyanosis. Neuro: no focalizing motor deficits or tremor. Psych: Normal affect and mood. No abnormal thought processes with patient's mentation clear. . Psych Mental Status: mental status grossly normal Speech and Movement: speech clear Mood: congruent mood Affect: normal affect DS: Data Vitals/I&O Vitals and I&O: Vital Signs Temperature 36.1 C L 06/03/22 14:19 Temperature Source Tympanic 06/03/22 11:15 Pulse 78 06/03/22 14:19 Pulse Rhythm Irregular 06/03/22 07:45 Pulse 75 06/01/22 05:30 Respiratory Rate 14 06/03/22 14:19 Respiratory Effort Non-Labored 06/03/22 07:45 Respiratory Depth Normal 06/03/22 07:45 Respiratory Pattern Normal 06/03/22 07:45 Blood Pressure 111/62 06/03/22 14:19 Blood Pressure Mean 75 06/01/22 05:01 Pulse Oximetry 96 06/03/22 14:19 Oxygen Delivery Method Room Air 06/03/22 14:19 Oxygen Flow Rate 0 06/03/22 14:19 Pain Level 0 06/03/22 08:26 Comment 06/03/22 03:05 Intake & Output 06/02/22 06/03/22 06/03/22 23:59 11:59 23:59 Intake Total 515 / 525 500 / 1070 570 / 1070 Output Total 600 / 1825 500 / 500 Balance -85 / -1300 0 / 570 570 / 570 Weight 85.1 kg Intake: IV 275 / 285 Oral 240 / 240 500 / 740 240 / 740 Blood Product 250 / 250 Rbc Leuko Reduced Unit 250 / 250 [id number] Other 80 / 80 Rbc Leuko Reduced Unit 80 / 80 [id number] Output: Urine 600 / 1825 500 / 500 Other: Urine Color Yellow Brown Green Urine Appearance Clear Mucous Threads Urine Odor Foul Comment dark greenish brown urine. Data Completed and Pending Labs on day of discharge: Labs from last 24 hours 06/03/22 06/03/22 06/02/22 08:21 05:47 13:54 Hgb 7.7 L Hct 25.7 L Sodium 136 Potassium 4.5 Chloride 102 Carbon Dioxide 25.9 Anion Gap 8.1 BUN 56 H Creatinine 2.5 H Est GFR (CKD-EPI 2020) 25.02 Glucose 94 Calcium 8.7 Total Bilirubin 1.0 AST 25 ALT 15 L Alkaline Phosphatase 224 H Total Protein 6.1 L Albumin 2.7 L Fluid Type Fluid Source Fluid Color Fluid Clarity Fluid WBC Fld Polynuclear WBCs % Fluid Mononuclear Cell Fluid Glucose 88 Fluid Albumin Fluid LDH Fluid Amylase Path Cons Comment Patient ABO/Rh Antibody Screen Crossmatch 06/02/22 06/02/22 06/02/22 13:54 13:54 13:54 Hgb Hct Sodium Potassium Chloride Carbon Dioxide Anion Gap BUN Creatinine Est GFR (CKD-EPI 2020) Glucose Calcium Total Bilirubin AST ALT Alkaline Phosphatase Total Protein Albumin Fluid Type Pending Pending Fluid Source Peritoneal Fluid Color Yellow Fluid Clarity Cloudy Fluid WBC 215 Fld Polynuclear WBCs % 18 Fluid Mononuclear Cell 82 Fluid Glucose Fluid Albumin 1.5 Fluid LDH Pending Fluid Amylase Pending Path Cons Comment Patient ABO/Rh Antibody Screen Crossmatch 06/01/22 03:35 Hgb Hct Sodium Potassium Chloride Carbon Dioxide Anion Gap BUN Creatinine Est GFR (CKD-EPI 2020) Glucose Calcium Total Bilirubin AST ALT Alkaline Phosphatase Total Protein Albumin Fluid Type Fluid Source Fluid Color Fluid Clarity Fluid WBC Fld Polynuclear WBCs % Fluid Mononuclear Cell Fluid Glucose Fluid Albumin Fluid LDH Fluid Amylase Path Cons Comment Patient ABO/Rh O Positive Antibody Screen NEGATIVE Crossmatch See Detail Preliminary micro results at discharge 06/02/22 13:54 Body Fluid Culture - Preliminary Paracentesis PFSH All Active Problems COVID-19 (Acute) Acute urinary retention (Acute) Complication, blocked Lazo catheter (Acute) Ascites (Chronic) Thrombocytopenia (Chronic) Abdominal pain (Acute) Iron deficiency anemia (Acute) DNR (do not resuscitate) (Acute) Chronic kidney disease (Chronic) Fatigue (Acute) Screening for colon cancer (Acute) Abdominal distention (Acute) Cardiomyopathy (Acute) Ventricular tachycardia (Chronic) Thrombocytopenia (Chronic) Anemia (Chronic) NSTEMI (non-ST elevated myocardial infarction) (Acute) Coronary artery disease (Chronic) Cirrhosis (Chronic) Ventricular tachycardia (Chronic) Bone metastasis (Acute) Prostate cancer (Chronic) Incarcerated right inguinal hernia (Acute) Tricuspid regurgitation (Acute) Acute urinary retention (Acute) Urinary retention due to benign prostatic hyperplasia (Acute) Elevated PSA, greater than or equal to 20 ng/ml (Acute) BPH (benign prostatic hyperplasia) (Chronic) Paroxysmal atrial fibrillation (Chronic) Medical History A-fib Anemia Anticoagulation adequate Ascites Bladder outlet obstruction Cardiorenal syndrome Cholelithiasis Congestive heart failure Cor pulmonale Corns and callus GERD (gastroesophageal reflux disease) History of alcohol abuse Hx of congestive heart failure Hx of myocardial infarction 2007 Hyperlipidemia Inguinal hernia Inguinal hernia, recurrent Jaundice Lateral femoral cutaneous entrapment syndrome Leg cramps Myocardial infarct Nail disorder Nocturnal leg cramps Overweight Pain, joint, knee, left Rectal bleeding Surgical History Hx of CABG Hx of cataract surgery Hx of colonoscopy Hx of inguinal hernia surgery S/P CABG (coronary artery bypass graft) 2009 Social History Smoking/Tobacco Use Status: Former Tobacco Use Quit Date: 07/12/89 Tobacco: How many years used: 15 Smoking risk assessment performed?: Yes Alcohol Intake: former Drug use: Never Substance use type: does not use Do you feel safe at home: Yes Do you feel safe in your relationship?: Yes
[2022-06-05 11:08] LABS: Amylase, BF 16 U/L; Fluid Type Peritoneal
== END 2022-06-03 15:50 | disposition home or self-care (01) | DRG 433 ==
LOC: ER 05:24 → MS 05:40
PROVIDERS: Family Medicine; Surgery; Admitting Provider Family Medicine; Emergency Provider Emergency Medicine; PCP Internal Medicine; Visit Provider Family Medicine
PROC: 0W9G3ZZ Drainage of Peritoneal Cavity, Percutaneous Approach (ICD-10-PCS; CPT 49082; principal; 2022-06-02 12:00)
DX: K70.31 Alcoholic cirrhosis of liver with ascites (principal); C79.51 Secondary malignant neoplasm of bone; I42.9 Cardiomyopathy, unspecified; I47.29 Other ventricular tachycardia; D69.6 Thrombocytopenia, unspecified; R10.9 Unspecified abdominal pain; R14.0 Abdominal distension (gaseous); R11.2 Nausea with vomiting, unspecified; R33.9 Retention of urine, unspecified; D50.9 Iron deficiency anemia, unspecified; Z66 Do not resuscitate; N18.9 Chronic kidney disease, unspecified; I25.10 Atherosclerotic heart disease of native coronary artery without angina pectoris; I48.0 Paroxysmal atrial fibrillation; I07.1 Rheumatic tricuspid insufficiency; K21.9 Gastro-esophageal reflux disease without esophagitis; F10.11 Alcohol abuse, in remission; D63.1 Anemia in chronic kidney disease; I50.9 Heart failure, unspecified; C61 Malignant neoplasm of prostate; I25.2 Old myocardial infarction; Z95.1 Presence of aortocoronary bypass graft; Z79.01 Long term (current) use of anticoagulants; Z86.16 Personal history of COVID-19; Z79.899 Other long term (current) drug therapy; Z79.82 Long term (current) use of aspirin; Z87.891 Personal history of nicotine dependence
CPT/HCPCS: 49082; 36415; 80053; 82042; 83690; 85027; 86850; 86900; 86901; 86920; 87635; 93005; 96361; 96374; 99221; 99285; 81373; 82150; 83615; 83735; 85014; 85018; 85025; 85610; 85730; 87070; 87205; 89051; 93010; 93306; 99223; 99232; 99239; 99291; J1756; J1940; J2270; J3490; P9016

== ENCOUNTER 2022-06-08 14:26 | Outpatient (CLI) | payer MEDICARE, SELFPAY ==
[2022-06-08 14:35] LABS: Abs Immature Grans 0.02 10^3/uL (0.0-0.06); Absolute Basophil Count 0.03 10^3/uL (0.0-0.2); Absolute Eosinophil Count 0.15 10^3/uL (0.0-0.7); Absolute Lymphocyte Count 0.24 10^3/uL (1.2-3.4); Absolute Monocyte Count 0.75 10^3/uL (0.1-0.8); Absolute Neutrophil Count 4.61 10^3/uL (1.2-6.7); Basophils % 0.5; Eosinophils % 2.6; HGB 8.8 g/dL (13.5-17.5); Immature Grans % 0.3; Lymphocytes % 4.1; MCH 24.3 pg (27.0-33.0); MCHC 30.3 % (32.0-36.0); MCV 80 fL (80-95); MPV 11.6 fL (8.0-11.0); Monocytes % 12.9; Neutrophils % 79.6; Platelet Count 114 10^3/uL (130-400); RBC 3.62 10^6/uL (4.36-5.78); RDW 21.1 % (11.8-14.1); RDW-SD 59.1 fL
[2022-06-08 14:47] LABS: Diff Comment RBC Morph Reviewed
[2022-06-08 14:48] LABS: Anisocytosis 2+; Poikilocytes 1+
[2022-06-08 14:51] LABS: BUN 31 mg/dL (7-18); CREATININE 1.8 mg/dL (0.70-1.30); Calcium 8.7 mg/dL (8.5-10.1); Chloride 101 mmol/L (98-107); Estimated GFR 37.12 (mL/min/1.73m2); Glucose 104 mg/dL (74-106); Potassium 4.9 mmol/L (3.5-5.1); Sodium 137 mmol/L (136-145)
== END 2022-06-08 14:27 | disposition home or self-care (01) ==
LOC: LBO 14:27
PROVIDERS: PCP Internal Medicine; Visit Provider Family Medicine
DX: D50.9 Iron deficiency anemia, unspecified (principal); N18.9 Chronic kidney disease, unspecified
CPT/HCPCS: 36415; 51702; 80048; 85025

== ENCOUNTER → 2022-06-15 13:52 | Outpatient (BNVA) | payer MEDICARE, SELFPAY | PROVIDERS: PCP Internal Medicine; Referring Provider Internal Medicine; Visit Provider Nurse Practitioner Gerontology | DX: C61 Malignant neoplasm of prostate (principal); R33.8 Other retention of urine; R97.20 Elevated prostate specific antigen [PSA]; C79.51 Secondary malignant neoplasm of bone | CPT/HCPCS: 51720; J9030 ==

== ENCOUNTER 2022-06-19 14:58 | Outpatient (REF) | payer MEDICARE, SELFPAY ==
[2022-06-19 19:43] LABS: Abs Immature Grans 0.02 10^3/uL (0.0-0.06); Absolute Basophil Count 0.02 10^3/uL (0.0-0.2); Absolute Eosinophil Count 0.09 10^3/uL (0.0-0.7); Absolute Lymphocyte Count 0.18 10^3/uL (1.2-3.4); Absolute Monocyte Count 0.47 10^3/uL (0.1-0.8); Absolute Neutrophil Count 3.06 10^3/uL (1.2-6.7); Basophils % 0.5; Eosinophils % 2.3; HGB 8.5 g/dL (13.5-17.5); Immature Grans % 0.5; Lymphocytes % 4.7; MCH 24.4 pg (27.0-33.0); MCHC 30.4 % (32.0-36.0); MCV 81 fL (80-95); Monocytes % 12.2; Neutrophils % 79.8; Platelet Count 124 10^3/uL (130-400); RBC 3.48 10^6/uL (4.36-5.78); RDW 21.4 % (11.8-14.1); RDW-SD 61.5 fL; WBC 3.84 10^3/uL (4.4-10.8)
[2022-06-19 19:52] LABS: Albumin 3.4 g/dL (3.4-5.0); Anion Gap 7.8 mmol/L (3-11); BUN 33 mg/dL (7-18); CO2 28.2 mmol/L (21.0-32.0); CREATININE 1.9 mg/dL (0.70-1.30); Calcium 8.6 mg/dL (8.5-10.1); Chloride 100 mmol/L (98-107); Estimated GFR 34.79 (mL/min/1.73m2); Glucose 116 mg/dL (74-106); PHOSPHORUS 3.9 mg/dL (2.6-4.7); Potassium 4.7 mmol/L (3.5-5.1); Sodium 136 mmol/L (136-145)
[2022-06-19 20:20] LABS: Anisocytosis 2+; Diff Comment RBC Morph Reviewed; Poikilocytes 1+
[2022-06-23 11:03] LABS: Erythropoietin 51.1 mIU/mL (2.6 - 18.5)
== END 2022-06-19 14:59 | disposition home or self-care (01) ==
LOC: NCHCN 14:58
PROVIDERS: PCP Internal Medicine; Visit Provider Internal Medicine
DX: D64.9 Anemia, unspecified (principal); N18.9 Chronic kidney disease, unspecified
CPT/HCPCS: 80069; 82668; 85025

== ENCOUNTER → 2022-06-24 01:01 | Outpatient (CLI) | payer MEDICARE, SELFPAY ==
--- NOTE | 2022-06-24 07:00 | DI.US_ITS ---
Exam(s) US RENAL EXAM: US RENAL CLINICAL HISTORY: ? bladder stones d/t frequent catheter occulusion,acute urinary retention,. TECHNIQUE: Forrest scale, color and spectral Doppler were used. COMPARISON: CT CT ABDOMEN PELVIS W from 04/01/2022 FINDINGS: Renal size in cm: Right: 10.2. Left: 10.6. Echogenicity: Normal. Hydronephrosis: No. Cyst or mass: No. Nephrolithiasis: No. Other findings: There is splenomegaly. The spleen measures 16.2 cm. There is a small amount of pelv ic and abdominal ascites. Bladder:The urinary bladder is incompletely distended. There is a Lazo catheter in place. Ureteral jets: Right: Not visualized on this examination. Left: Not visualized on this examination. Prevoid vol:22 cc Postvoid vol:The patient did not void during this examination. There is a Lazo catheter in place. Prostate: Could not be visualized. Cc Renal color flow: Symmetric and within normal limits. IMPRESSION: 1. Evaluation of the urinary bladder is limited due to the presence of a Lazo catheter and a low pre void volume. No obvious bladder stones are seen. 2. Splenomegaly and abdominal pelvic ascites. DATA REPOSITORY:
== END ==
PROVIDERS: PCP Internal Medicine; Visit Provider Nurse Practitioner Gerontology
DX: N21.0 Calculus in bladder (principal); R33.8 Other retention of urine; R16.1 Splenomegaly, not elsewhere classified
CPT/HCPCS: 76770

== ENCOUNTER → 2022-07-03 10:39 | Outpatient (BNVA) | payer MEDICARE, SELFPAY | PROVIDERS: PCP Internal Medicine; Referring Provider Internal Medicine; Visit Provider Internal Medicine Cardiovascular Disease | DX: I42.9 Cardiomyopathy, unspecified (principal); I25.10 Atherosclerotic heart disease of native coronary artery without angina pectoris; I48.0 Paroxysmal atrial fibrillation; I47.29 Other ventricular tachycardia | CPT/HCPCS: 99214; 99213 ==

== ENCOUNTER 2022-07-09 19:01 | Outpatient (REF) | payer MEDICARE, SELFPAY ==
[2022-07-09 18:49] LABS: HCT 26.2 % (40.0-50.0); HGB 8.1 g/dL (13.5-17.5); MCH 24.8 pg (27.0-33.0); MCHC 30.9 % (32.0-36.0); MCV 80 fL (80-95); Platelet Count 111 10^3/uL (130-400); RDW 21.3 % (11.8-14.1); RDW-SD 62.4 fL; WBC 4.35 10^3/uL (4.4-10.8)
[2022-07-09 18:55] LABS: Anion Gap 7.9 mmol/L (3-11); BUN 37 mg/dL (7-18); CO2 26.1 mmol/L (21.0-32.0); CREATININE 1.8 mg/dL (0.70-1.30); Calcium 8.6 mg/dL (8.5-10.1); Chloride 102 mmol/L (98-107); Estimated GFR 37.12 (mL/min/1.73m2); Glucose 118 mg/dL (74-106); Potassium 5.2 mmol/L (3.5-5.1); Sodium 136 mmol/L (136-145)
[2022-07-09 18:57] LABS: RBC 3.27 10^6/uL (4.36-5.78)
== END 2022-07-09 19:02 | disposition home or self-care (01) ==
LOC: NCHCN 19:01
PROVIDERS: PCP Internal Medicine; Visit Provider Internal Medicine
DX: R18.8 Other ascites (principal); Z86.2 Personal history of diseases of the blood and blood-forming organs and certain disorders involving the immune mechanism
CPT/HCPCS: 80048; 85027

== ENCOUNTER 2022-07-14 11:06 | Outpatient (CLI) | payer MEDICARE, SELFPAY ==
[2022-07-14 11:23] LABS: Abs Immature Grans 0.01 10^3/uL (0.0-0.06); Absolute Basophil Count 0.01 10^3/uL (0.0-0.2); Absolute Eosinophil Count 0.07 10^3/uL (0.0-0.7); Absolute Lymphocyte Count 0.19 10^3/uL (1.2-3.4); Absolute Monocyte Count 0.57 10^3/uL (0.1-0.8); Absolute Neutrophil Count 3.54 10^3/uL (1.2-6.7); Basophils % 0.2; Eosinophils % 1.6; HCT 27.3 % (40.0-50.0); HGB 8.2 g/dL (13.5-17.5); Immature Grans % 0.2; Lymphocytes % 4.3; MCH 24.3 pg (27.0-33.0); MCV 81 fL (80-95); Neutrophils % 80.7; Platelet Count 114 10^3/uL (130-400); RBC 3.38 10^6/uL (4.36-5.78); RDW 21.5 % (11.8-14.1); RDW-SD 63.6 fL; WBC 4.39 10^3/uL (4.4-10.8)
[2022-07-14 11:44] LABS: ALT 21 U/L (16-63); AST 31 U/L (15-37); Albumin 3.5 g/dL (3.4-5.0); Alkaline Phosphatase 273 U/L (46-116); Anion Gap 6.5 mmol/L (3-11); BUN 37 mg/dL (7-18); Bilirubin, Total 0.9 mg/dL (0.2-1.0); CO2 25.5 mmol/L (21.0-32.0); CREATININE 1.9 mg/dL (0.70-1.30); Calcium 8.7 mg/dL (8.5-10.1); Chloride 104 mmol/L (98-107); Estimated GFR 34.79 (mL/min/1.73m2); Glucose 109 mg/dL (74-106); Sodium 136 mmol/L (136-145); Total Protein 7.3 g/dL (6.4-8.2)
[2022-07-14 11:48] LABS: Anisocytosis 2+; Diff Comment Diff Reviewed
[2022-07-14 12:33] LABS: Iron 31 ug/dL (65-175); Total Iron Binding Capacity 333 ug/dL (250-450); Transferrin Sat 9 % (20-55)
[2022-07-16 14:45] LABS: PSA, Ultrasensitive 0.48 ng/mL (<= 7.2)
[2022-07-17 23:53] LABS: Testosterone, Total <7.0 ng/dL (240-950)
== END 2022-07-14 11:07 | disposition home or self-care (01) ==
LOC: LBO 11:06
PROVIDERS: Internal Medicine; PCP Internal Medicine; Visit Provider Internal Medicine
DX: C61 Malignant neoplasm of prostate (principal); D64.9 Anemia, unspecified
CPT/HCPCS: 36415; 80053; 84153; 84403; 83540; 83550; 85025

== ENCOUNTER → 2022-07-16 10:21 | Outpatient (BNVA) | payer MEDICARE, SELFPAY | PROVIDERS: PCP Internal Medicine; Referring Provider Internal Medicine; Visit Provider Nurse Practitioner Gerontology | DX: Z46.6 Encounter for fitting and adjustment of urinary device (principal); Z96.0 Presence of urogenital implants; R33.8 Other retention of urine; R97.20 Elevated prostate specific antigen [PSA]; C79.51 Secondary malignant neoplasm of bone; C61 Malignant neoplasm of prostate | CPT/HCPCS: 96402; 99212; J9217 ==

== ENCOUNTER 2022-07-23 06:30 | Emergency (ER) | payer MEDICARE, SELFPAY ==
--- NOTE | 2022-07-23 | DI.CT_ITS ---
Exam(s) CT ABDOMEN PELVIS WO EXAM: CT ABDOMEN PELVIS WO CLINICAL HISTORY: HEMATURIA, BACK PAIN. TECHNIQUE: Imaging Protocol: Axial computed tomography images with coronal and sagittal reformatted images were created and reviewed. COMPARISON: CT ABD PELVIS WITH CONTRAST from 05/07/[address] ABDOMEN PELVIS W from 04/01/2022 FINDINGS: ABDOMEN: Lung Bases: There are small bilateral pleural effusions right greater than left. There is subjacent infiltrate in the right lung base. These findings are stable. Cardiomegaly is present. Coronary ar vasyl calcifications are present. Small hiatal hernia. Liver: There is a nodular contour of the liver suggesting hepatic cirrhosis. There is a cyst again s een in the left lobe of the liver which appears stable. Gallbladder and biliary tract: Cholelithiasis. No biliary ductal dilatation. Pancreas: Normal density, no abnormal calcifications or inflammatory process. Spleen: The spleen is enlarged measuring almost 17 cm. Kidneys: Normal size, contour and axis.No radiodense stones or obstructive uropathy. No masses seen. Adrenal glands: No mass is seen. Lymph nodes: Within normal limits. Abdominal Aorta: Abdominal portion non-dilated. Atherosclerosis is present. PELVIS: Bladder:There is a Lazo catheter in the urinary bladder. There is air in the bladder likely reflect ing recent catheterization. There is mild thickening of the wall of the urinary bladder. This may b e due to underdistention but cystitis cannot be excluded. Bowel: No obstruction or bowel wall thickening. No evidence of appendicitis. There is diverticulosis of the colon but no evidence of acute diverticulitis. Peritoneal cavity: There is a moderate amount of abdominal and pelvic ascites. No free air. Reproductive organs: Unremarkable as visualized. Bones: There again seen sclerotic metastases in the pelvis. Soft Tissues: There is edema seen in the soft tissues. There is a fluid containing left inguinal her helio. Gynecomastia. IMPRESSION: 1. No evidence of nephrolithiasis or hydronephrosis. 2. There is mild thickening of the wall of the urinary bladder. This may be due to underdistention b ut cystitis cannot be excluded. 3. Interval increase in size of the abdominal and pelvic ascites since 04/01/2022. 4. Persistent bilateral basilar lung findings including effusion and infiltrate. 5. Findings were discussed with Dr. Rutherford at 9:53 a.m. at 1:12 23. RADIATION DOSE DELIVERED: 990.04mGy.cm Total DLP DATA REPOSITORY: All CT scans at this facility are submitted to the National Radiology Data Registry (NRDR) Dose Index Registry (DIR) with the [employer] ([employer]). RADIATION OPTIMIZATION: All CT scans at this facility use at least one of these dose optimization te chniques: automated exposure control; mA and/or kV adjustment per patient size (includes targeted exa ms where dose is matched to clinical indication); or iterative reconstruction.
--- NOTE | 2022-07-23 09:14 | ED.GENADUL_ITS ---
Discharge Plan Disposition Patient Disposition: Home Condition: Stable Discharge Details Clinical Impression: Hematuria, Ascites Primary Care Provider: Rudolph Ryan ED Provider: Milena Rutherford Home Meds and New Rx's Prescriptions: Continued acetaminophen [Tylenol] 325 mg capsule 325 mg PO DAILY PRN PRN Rx Instructions: for pain amiodarone 200 mg tablet 200 mg PO DAILY spironolactone 50 mg tablet 50 mg PO DAILY Label Comments: Pt reports slight reaction to medication but PCP told him he needed it more than the problems it caused so he continues to be on this medication despite the adverse reaction furosemide 40 mg tablet 40 mg PO DAILY Qty: 30 8RF Xarelto 15 mg tablet 15 mg PO HS Rx Instructions: must administer with evening meal aspirin [Aspir-81] 81 MG tablet,delayed release (DR/EC) 81 mg PO .QOD Label Comments: 06/14/17 pt last day taking this is 06/17/17 pt aware, DCW atorvastatin [Lipitor] 40 mg tablet 20 mg PO HS losartan 50 MG tablet 50 mg PO DAILY tamsulosin 0.4 mg capsule 0.8 mg PO HS dexlansoprazole 60 mg capsule,biphase delayed releas 60 cap PO DAILY Label Comments: TAKE ONE CAPSULE BY MOUTH EVERY DAY Discharge Instructions Instructions: Hematuria (ED), Ascites (ED) Additional Instructions: Hold your Xarelto for the next 2 days and then resume taking your Xarelto on Wednesday. Dr. Lazcano is planning to do a cystoscopy to look inside your bladder at the time of your next elkins catheter change next month. Limit your intake of Tylenol secondary to your liver disease. You can discuss taking Tylenol as needed and directed for pain with your primary care doctor and general surgery in the next week. You have been placed on general surgery's list to schedule a paracentesis within the next 1 to 2 weeks for drainage of the fluid within your abdomen. Follow-up with your primary care doctor in 1 week. Return to the emergency department with any worsening or new concerning symptoms. Referrals: Gasper Lazcano MD [ [facility] STAFF PHYSICIAN] - Hector Gay MD [ [facility] STAFF PHYSICIAN] - Discharge Data Discharge Date/Time-TO BE ENTERED AT DEPARTURE: 07/23/22 13:39 Discharge Physician: Milena Rutherford Medical Decision Making 0800 -- 81-year-old male who is DNR/DNI with a history of paroxysmal atrial fibrillation on Xarelto, cirrrhosis with ascites, prostate cancer, chronic kidney disease, NSTEMI, BPH with chronic urinary retention and chronic indwelling Elkins catheter presented from home for hematuria since 4am and acute on chronic back pain last night that has since resolved. Patient initially evaluated by Dr. Quigley and had screening labs and CT renal colic ordered. Labs noted a hemoglobin of 7.9 which is down trended from a result 9 days ago which noted a hemoglobin of 8.2. Case endorsed to follow-up on CT renal colic and final disposition with likely plan for discussion with Dr. Lazcano. 1000 --CT reviewed and notes mild thickening of the wall of the urinary bladder which may be due to underdistention but cystitis cannot be excluded. There is no evidence of nephrolithiasis or hydronephrosis. There is also interval increase in the size of the abdominal pelvic ascites in April 01, 2022. There are also persistent bilateral basilar lung findings including effusion and infiltrate. Patient has no new complaint of chest pain, cough or shortness of breath. Creatinine 2.06, was 1.9 on 07/14/2022. We will plan for repeat CBC to assess hemoglobin in addition to repeat BMP to recheck potassium as it was 5.2. It was 5.0 on 07/14/2022. Will also obtain urinalysis. Case discussed and imaging reviewed with Dr. Lazcano. --Recommend holding his Xarelto for a day or two and plan for cystoscopy at time of next Elkins catheter change which would be first week of August as he has it changed every month and it was last changed on July 16. In reference to his worsening ascites on the CT, patient has no complaint of acute abdominal pain, difficulty breathing or chest pain. I do not think he needs an emergent paracentesis and can be scheduled with general surgery with hopeful plan within the next 1 to 2 weeks. He would need his Xarelto held as well. I discussed with general surgery on-call Dr. Quesada who recommends to call the general surgery office. psychiatric secretary called the office and they recommended a referral be sent for urgent paracentesis. Recheck of labs note his hemoglobin is stable. His potassium has now normalized and his creatinine is at his baseline. Urinalysis does note nitrites and this was discussed with Lisa Kathleen with urology and does not recommend antibiotics if patient has no fever or elevated white blood cell count. Advised to follow up with the primary care doctor for re-evaluation. Usual and customary return precautions given prior to discharge. Medical Records Medical records reviewed: Yes I reviewed the patient's medical records. Imaging Data Radiologic Study: Radiologist's impression: CT ABDOMEN ? PELVIS WO CLINICAL HISTORY: ? HEMATURIA, BACK PAIN.? TECHNIQUE:? Imaging Protocol: Axial computed tomography images with coronal and sagittal reformatted images were created and reviewed. COMPARISON:? CT ABD ? PELVIS WITH CONTRAST from 05/07/[address] ABDOMEN ? PELVIS W from 04/01/2022 FINDINGS: ABDOMEN: Lung Bases: There are small bilateral pleural effusions right greater than left.? There is subjacent infiltrate in the right lung base.? These findings are stable.? Cardiomegaly is present.? Coronary artery calcifications are present.? Small hiatal hernia. Liver: There is a nodular contour of the liver suggesting hepatic cirrhosis.? There is a cyst again seen in the left lobe of the liver which appears stable.? Gallbladder and biliary tract: Cholelithiasis.? No biliary ductal dilatation.? Pancreas: Normal density, no abnormal calcifications or inflammatory process. Spleen: The spleen is enlarged measuring almost 17 cm.? Kidneys: Normal size, contour and axis.No radiodense stones or obstructive uropathy. No masses seen. Adrenal glands: No mass is seen. Lymph nodes: Within normal limits.? Abdominal Aorta: Abdominal portion non-dilated. Atherosclerosis is present. PELVIS:? Bladder:There is a Elkins catheter in the urinary bladder.? There is air in the bladder likely reflecting recent catheterization.? There is mild thickening of the wall of the urinary bladder.? This may be due to underdistention but cystitis cannot be excluded.? Bowel: No obstruction or bowel wall thickening. No evidence of appendicitis.? There is diverticulosis of the colon but no evidence of acute diverticulitis.? Peritoneal cavity: There is a moderate amount of abdominal and pelvic ascites.? No free air.? Reproductive organs: Unremarkable as visualized.? Bones: There again seen sclerotic metastases in the pelvis.? Soft Tissues: There is edema seen in the soft tissues.? There is a fluid containing left inguinal hernia.? Gynecomastia. IMPRESSION: 1. No evidence of nephrolithiasis or hydronephrosis. 2. There is mild thickening of the wall of the urinary bladder.? This may be due to underdistention but cystitis cannot be excluded. 3. Interval increase in size of the abdominal and pelvic ascites since 04/01/2022. 4. Persistent bilateral basilar lung findings including effusion and infiltrate. 5. Findings were discussed with Dr. Rutherford at 9:53 a.m. at 1:12 23. Lab Data Lab results reviewed: Yes I reviewed the patient's lab results. Labs: 07/23/22 10:35 Urine - Reflex from Ua Urine Culture - Preliminary Escherichia coli Gram Negative Jaren#[id number] Laboratory Tests Range/Units 07/23/22 07/23/22 07/23/22 06:15 10:25 10:25 WBC Cancelled RBC Cancelled Hgb Cancelled Hct Cancelled MCV Cancelled MCH Cancelled MCHC Cancelled RDW Cancelled Plt Count Cancelled MPV Cancelled Immature Gran % Cancelled Neutrophils % Cancelled Band Neutrophils % Cancelled Lymphocytes % Cancelled Atypical Lymphs % Cancelled Monocytes % Cancelled Eosinophils % Cancelled Basophils % Cancelled Metamyelocytes % Cancelled Myelocytes % Cancelled Promyelocytes % Cancelled Other Cells % Cancelled Nucleated RBC % Cancelled Absolute Neutrophils Cancelled Absolute Lymphocytes Cancelled Absolute Monocytes Cancelled Absolute Eosinophils Cancelled Absolute Basophils Cancelled RBC Morphology Cancelled Polychromasia Cancelled Hypochromasia Cancelled Poikilocytosis Cancelled Basophilic Stippling Cancelled Anisocytosis Cancelled Microcytosis Cancelled Macrocytosis Cancelled Spherocytes Cancelled Tear Drop Cells Cancelled Ovalocytes Cancelled Stomatocytes Cancelled [place] Bodies Cancelled [place] Cells/Echinocytes Cancelled Acanthocytes (Spur) Cancelled Schistocytes Cancelled Sodium Cancelled Potassium Cancelled Chloride Cancelled Carbon Dioxide Cancelled Anion Gap Cancelled BUN Cancelled Creatinine Cancelled Est GFR (CKD-EPI 2020) Cancelled Glucose Cancelled Calcium Cancelled Urine Color Cancelled Urine Clarity Cancelled Urine pH Cancelled Ur Specific [place] Cancelled Urine Protein Cancelled Urine Ketones Cancelled Urine Blood Cancelled Urine Nitrite Cancelled Urine Bilirubin Cancelled Urine Urobilinogen Cancelled Ur Leukocyte Esterase Cancelled Urine RBC (0-2) HPF Urine WBC (0-5) HPF Ur Epithelial Cells (Negative) HPF Urine Crystals (Negative) HPF Urine Bacteria (Negative) HPF Urine Casts (Negative) LPF Urine Mucus (Negative) Ur Culture Indicated? Urine Glucose Cancelled Range/Units 07/23/22 07/23/22 07/23/22 10:35 10:35 10:35 WBC 4.41 RBC 3.21 L Hgb 7.9 L Hct 25.4 L MCV 79 L MCH 24.6 L MCHC 31.1 L RDW 21.5 H Plt Count 121 L MPV TNP Immature Gran % 0.5 Neutrophils % 78.4 Band Neutrophils % Lymphocytes % 5.4 Atypical Lymphs % Monocytes % 13.4 Eosinophils % 1.8 Basophils % 0.5 Metamyelocytes % Myelocytes % Promyelocytes % Other Cells % Nucleated RBC % 0.0 Absolute Neutrophils 3.46 Absolute Lymphocytes 0.24 L Absolute Monocytes 0.59 Absolute Eosinophils 0.08 Absolute Basophils 0.02 RBC Morphology Polychromasia Hypochromasia Poikilocytosis 2+ Basophilic Stippling Anisocytosis 2+ Microcytosis Macrocytosis Spherocytes Tear Drop Cells Ovalocytes Stomatocytes Barr-[place]iley[place] Bodies [place] Cells/Echinocytes Acanthocytes (Spur) Schistocytes Sodium 134 L Potassium 5.0 Chloride 102 Carbon Dioxide 26.5 Anion Gap 5.5 BUN 38 H Creatinine 1.9 H Est GFR (CKD-EPI 2020) 34.79 Glucose 99 Calcium 8.6 Urine Color Yellow Urine Clarity Sl Cloudy Urine pH 7.5 Ur Specific [place] 1.020 Urine Protein 100 H Urine Ketones Negative Urine Blood Large H Urine Nitrite Positive H Urine Bilirubin Negative Urine Urobilinogen 1.0 H Ur Leukocyte Esterase Small H Urine RBC (0-2) HPF 20-50 H Urine WBC (0-5) HPF 20-50 H Ur Epithelial Cells (Negative) HPF Few Urine Crystals (Negative) HPF Negative Urine Bacteria (Negative) HPF Many Urine Casts (Negative) LPF Negative Urine Mucus (Negative) Negative Ur Culture Indicated? Yes Urine Glucose Negative HPI General Date/Time Provider Initiated Documentation: 07/23/22 09:14 . Limitations to Documentation: no limitations . Information obtained by: patient . HPI Narrative: Patient is an 81-year-old male who is DNR/DNI with a known history of prostate cancer, paroxysmal atrial fibrillation on Xarelto, NSTEMI, chronic kidney disease, BPH, and chronic urinary retention with chronic indwelling Elkins catheter presented from home for hematuria with blood noted in his urine bag at 4am this morning. Pt also states that he has chronic back pain related to an injury when he was younger and states he has intermittent back pain from time to time and states he had back pain before he went to bed last night but states this is now resolved. He states the pain is intermittent, occurring at random, across his lower back and aching. Again he denies any pain at present. Patient also feels that his urine is clearing up and does not notice hematuria anymore. Patient denies any fever, chest pain, difficulty breathing, abdominal pain. Patient does also endorse that he had a paracentesis in May while he was admitted and states he was told to follow-up as needed. Related Data Home Medications Medication Instructions Recorded Confirmed aspirin 81 mg tablet,delayed 81 mg PO .QOD 12/18/15 07/23/22 release (Aspir-) losartan 50 mg tablet 50 mg PO DAILY 06/12/16 07/23/22 rivaroxaban 15 mg tablet (Xarelto) 15 mg PO HS 07/02/20 07/23/22 tamsulosin 0.4 mg capsule 0.8 mg PO HS 09/25/20 07/23/22 acetaminophen 325 mg capsule 325 mg PO DAILY PRN PRN 07/10/21 07/23/22 (Tylenol) amiodarone 200 mg tablet 200 mg PO DAILY 07/10/21 07/23/22 spironolactone 50 mg tablet 50 mg PO DAILY 07/10/21 07/23/22 atorvastatin 40 mg tablet (Lipitor) 20 mg PO HS 04/02/22 07/23/22 furosemide 40 mg tablet 40 mg PO DAILY #30 tab-caps 04/02/22 07/23/22 dexlansoprazole 60 mg 60 cap PO DAILY 06/01/22 07/23/22 capsule,biphase delayed release Previous Rx's Medication Instructions Recorded furosemide 40 mg tablet 40 mg PO DAILY #30 tab-caps 04/02/22 Allergies Allergy/AdvReac Type Severity Reaction Status Date / Time lisinopril AdvReac Intermediate cough Verified 07/23/22 09:24 spironolactone AdvReac Hyperkalemi Verified 07/23/22 09:24 a General Stated Complaint: Urinary EUSEBIO: 3 Review of Systems All systems reviewed & are unremarkable except as noted in HPI and below Constitutional Constitutional: Reports as per HPI, Denies chills and Denies fever(s) Eyes Eyes: Denies blurry vision ENT Ears, Nose, Mouth, and Throat: Denies dizziness, Denies sore throat and Denies throat swelling Cardiovascular Cardiovascular: Denies chest pain and Denies dyspnea Respiratory Respiratory: Denies cough and Denies dyspnea Gastrointestinal Gastrointestinal: Denies abdominal pain, Denies diarrhea and Denies vomiting Genitourinary Genitourinary: Reports hematuria and Denies dysuria Musculoskeletal Musculoskeletal: Denies back pain and Denies numbness Integumentary/Breasts Skin/Breast: Denies lesions and Denies rash Neurologic Neurologic: Denies dizziness, Denies localized weakness and Denies numbness Allergic/Immunologic Allergic/Immunologic: Denies throat swelling PFSH All Active Problems (Updated 07/23/22 @ 12:41 by Milena Rutherford DO) Hematuria (Acute) COVID-19 (Acute) Ascites (Chronic) Thrombocytopenia (Chronic) Iron deficiency anemia (Acute) DNR (do not resuscitate) (Acute) Chronic kidney disease (Chronic) Fatigue (Acute) Screening for colon cancer (Acute) Abdominal distention (Acute) Cardiomyopathy (Acute) Ventricular tachycardia (Chronic) Thrombocytopenia (Chronic) Anemia (Chronic) NSTEMI (non-ST elevated myocardial infarction) (Acute) Coronary artery disease (Chronic) Cirrhosis (Chronic) Ventricular tachycardia (Chronic) Bone metastasis (Acute) Prostate cancer (Chronic) Incarcerated right inguinal hernia (Acute) Tricuspid regurgitation (Acute) Acute urinary retention (Acute) Urinary retention due to benign prostatic hyperplasia (Acute) Elevated PSA, greater than or equal to 20 ng/ml (Acute) BPH (benign prostatic hyperplasia) (Chronic) Paroxysmal atrial fibrillation (Chronic) Medical History A-fib Anemia Anticoagulation adequate Ascites Bladder outlet obstruction Cardiorenal syndrome Cholelithiasis Congestive heart failure Cor pulmonale Corns and callus GERD (gastroesophageal reflux disease) History of alcohol abuse Hx of congestive heart failure Hx of myocardial infarction 2007 Hyperlipidemia Inguinal hernia Inguinal hernia, recurrent Jaundice Lateral femoral cutaneous entrapment syndrome Leg cramps Myocardial infarct Nail disorder Nocturnal leg cramps Overweight Pain, joint, knee, left Rectal bleeding Surgical History Hx of CABG Hx of cataract surgery Hx of colonoscopy Hx of inguinal hernia surgery S/P CABG (coronary artery bypass graft) 2009 Social History Smoking/Tobacco Use Status: Former Tobacco Use Quit Date: 07/12/89 Tobacco: How many years used: 15 Smoking risk assessment performed?: Yes Alcohol Intake: former Drug use: Never Substance use type: does not use Do you feel safe at home: Yes Do you feel safe in your relationship?: Yes Exam Const General: cooperative, healthy appearing and no acute distress Orientation: alert, awake and oriented x3 HENMT Head: normal to inspection Face and sinus: normal facial exam Eyes General: appearance normal, both eyes and all related structures Pupils: PERRL EOM: EOM intact bilaterally Neck Neck: normal visual inspection and No submandibular swelling Lymphatic: no lymphadenopathy noted Chest Chest: normal inspection of the chest and no tenderness Resp Effort & Inspection: normal respiratory effort and able to speak in complete sentences Auscultation: clear to auscultation bilaterally Cardio Rate: regular rate Rhythm: regular rhythm GI Inspection: normal to inspection and distended Palpation: soft, not firm, not rigid and nontender Auscultation: hypoactive bowel sounds Scrotum: scrotum normal Other: elkins catheter present Neuro General: patient alert, patient awake and patient oriented x3 Cognition: normal cognition Speech: speech normal Motor: muscle tone normal throughout Sensory Exam: no sensory deficits noted Extrem General: normal to inspection, full ROM, capillary refill normal, no calf tenderness bilaterally and no edema Psych Appearance: grossly normal Mental Status: mental status grossly normal Speech and Movement: speech and movement normal Affect: normal affect
--- NOTE | 2022-07-23 10:14 | NUR.NOTE ---
Report received from Marah HERNANDEZ at this time. Nursing Note:
[2022-07-23 10:28] VITALS: BP 114/57; PULSE 77; RESP 16; O2SAT 98
--- NOTE | 2022-07-23 10:35 | NUR.NOTE ---
Pt resting in bed. Urine specimen drawn off of existing elkins catheter port. Appears clear, yellow with small clots noted. Pt denies any need at this time. Call light in reach. Will cont to monitor. Nursing Note:
[2022-07-23 11:09] LABS: Bilirubin Negative (Negative); Blood Large (Negative); Clarity Sl Cloudy (Clear); Glucose Negative (Negative); Ketones Negative (Negative); Leukocyte Esterase Small (Negative); Nitrite Positive (Negative); pH 7.5 (5-8)
[2022-07-23 11:17] LABS: Anion Gap 5.5 mmol/L (3-11); BUN 38 mg/dL (7-18); CO2 26.5 mmol/L (21.0-32.0); CREATININE 1.9 mg/dL (0.70-1.30); Calcium 8.6 mg/dL (8.5-10.1); Chloride 102 mmol/L (98-107); Estimated GFR 34.79 (mL/min/1.73m2); Glucose 99 mg/dL (74-106); Sodium 134 mmol/L (136-145)
[2022-07-23 11:23] LABS: Bacteria Many HPF (Negative); C & S Indicated? Yes; Casts Negative LPF (Negative); Crystals Negative HPF (Negative); Epithelial Cells Few HPF (Negative); Mucus Negative (Negative); RBC 20-50 HPF (0-2); WBC 20-50 HPF (0-5)
[2022-07-23 11:29] LABS: HCT 25.4 % (40.0-50.0); HGB 7.9 g/dL (13.5-17.5); RBC 3.21 10^6/uL (4.36-5.78); WBC 4.41 10^3/uL (4.4-10.8)
[2022-07-23 11:30] LABS: Absolute Lymphocyte Count 0.24 10^3/uL (1.2-3.4); Absolute Neutrophil Count 3.46 10^3/uL (1.2-6.7); Lymphocytes % 5.4; MCH 24.6 pg (27.0-33.0); MCHC 31.1 % (32.0-36.0); MCV 79 fL (80-95); Neutrophils % 78.4; Platelet Count 121 10^3/uL (130-400); RDW 21.5 % (11.8-14.1); RDW-SD 62.2 fL
[2022-07-23 11:31] LABS: Abs Immature Grans 0.02 10^3/uL (0.0-0.06); Absolute Basophil Count 0.02 10^3/uL (0.0-0.2); Absolute Eosinophil Count 0.08 10^3/uL (0.0-0.7); Absolute Monocyte Count 0.59 10^3/uL (0.1-0.8); Basophils % 0.5; Diff Comment PLT Morph Reviewed; Eosinophils % 1.8; Immature Grans % 0.5; Monocytes % 13.4
[2022-07-23 11:38] LABS: Anisocytosis 2+; Poikilocytes 2+
--- NOTE | 2022-07-23 12:38 | NUR.NOTE ---
Nursing Note: Referral faxed to [facility] for needs paracentesis, on relto, had one done 06/02/[address] Gay while inpt, to be done next week if possible
[2022-07-23 13:30] VITALS: BP 126/63; PULSE 87; RESP 16; O2SAT 97
== END 2022-07-23 13:39 | disposition home or self-care (01) ==
PROVIDERS: Emergency Provider Physician Assistant; PCP Internal Medicine
DX: R18.8 Other ascites (principal); N30.91 Cystitis, unspecified with hematuria; I25.2 Old myocardial infarction; N18.9 Chronic kidney disease, unspecified; I48.0 Paroxysmal atrial fibrillation; I50.9 Heart failure, unspecified; Z79.01 Long term (current) use of anticoagulants; Z79.82 Long term (current) use of aspirin; Z86.16 Personal history of COVID-19; Z85.46 Personal history of malignant neoplasm of prostate
CPT/HCPCS: 80048; 87077; 96360; 99284; 74176; 81003; 81015; 85025; 87086; 87186

== ENCOUNTER → 2022-07-27 13:51 | Outpatient (BNVA) | payer MEDICARE, SELFPAY | PROVIDERS: PCP Internal Medicine; Referring Provider Internal Medicine; Visit Provider Surgery | DX: R18.8 Other ascites (principal); K74.60 Unspecified cirrhosis of liver; I48.0 Paroxysmal atrial fibrillation; I42.9 Cardiomyopathy, unspecified; I13.10 Hypertensive heart and chronic kidney disease without heart failure, with stage 1 through stage 4 chronic kidney disease, or unspecified chronic kidney disease; D69.6 Thrombocytopenia, unspecified; D50.9 Iron deficiency anemia, unspecified; C61 Malignant neoplasm of prostate; C79.51 Secondary malignant neoplasm of bone | CPT/HCPCS: 99212 ==

== ENCOUNTER 2022-07-30 11:13 | Day surgery (SDC) | payer MEDICARE, SELFPAY ==
--- NOTE | 2022-07-29 20:59 | W.PM.DSUDISC ---
Date of service: 07/30/22 Time of Service: 14:23 Discharge Plan Disposition Patient Disposition: Home Condition: Good Discharge Details Reason For Visit: Paracentesis Attending Provider: Hector Gay Primary Care Provider: Rudolph Ryan Home Meds and New Rx's Prescriptions: Continued acetaminophen [Tylenol] 325 mg capsule 325 mg PO DAILY PRN PRN Rx Instructions: for pain amiodarone 200 mg tablet 200 mg PO DAILY spironolactone 50 mg tablet 50 mg PO DAILY Label Comments: Pt reports slight reaction to medication but PCP told him he needed it more than the problems it caused so he continues to be on this medication despite the adverse reaction furosemide 40 mg tablet 40 mg PO DAILY Qty: 30 8RF ferrous gluconate [Ferate] 240 mg (27 mg iron) tablet 240 mg PO BID aspirin [Aspir-81] 81 MG tablet,delayed release (DR/EC) 81 mg PO .QOD Label Comments: 06/14/17 pt last day taking this is 06/17/17 pt aware, DCW atorvastatin [Lipitor] 40 mg tablet 40 mg PO HS losartan 50 MG tablet 50 mg PO DAILY tamsulosin 0.4 mg capsule 0.8 mg PO HS Held Xarelto 15 mg tablet 15 mg PO HS Hold Instructions: Resume on 07/30/22. Rx Instructions: must administer with evening meal Discharge Instructions Instructions: Paracentesis (DC) Activity:: Activity as Tolerated Remove Dressings/Wound Care:: 24 hours Shower/Bathe:: 24 hours Diet:: As Tolerated Discharge Orders Discharge Orders: Discharge Order (Routine); Ordered 07/29/22 Ordered By: Hector Gay DS: Diagnosis Discharge Diagnosis (1) Ascites: Status: Chronic Asessment and Plan: Gasper, it was great seeing you today. I hope you feel well after this paracentesis. Like we talked about, follow Dr. Ryan's instructions and we will be here for you whenever you need us. You can resume taking your Xarelto this evening.
--- NOTE | 2022-07-29 21:02 | ROE_ITS ---
Date of service: 07/30/22 Time of Service: 14:25 Operative Note Operative Note DATE OF PROCEDURE: 07/30/22 PRE-OP DIAGNOSIS: Ascites POST-OP DIAGNOSIS: same PROCEDURE: Paracentesis SURGEON: Hector Gay ANESTHESIA TYPE: Local By Surgeon ESTIMATED BLOOD LOSS: 5 COMPLICATIONS: None Patient was transported to: same day Patient's condition: stable Indications: Gasper is an 81-year-old male with tense ascites. He is here for palliative paracentesis. Procedure Description: I started by performing a limited ultrasound of the abdomen to identify ap propriate site for paracentesis. Next, I selected the left lower quadrant as the ideal site for paracentesis. I then prepped and draped the abdomen. Next, using ultrasound guidance, I anesthetized the skin with 1% lidocaine with epinephrine. I used the ultrasound to guide the needle down to the peritoneal level which was also anesthetized. I then made a small incision in the skin with a 11 blade scalpel. Next, I advanced the 5 [place] paracentesis needle and catheter through the incision and into the peritoneal cavity under the direct vision of the ultrasound. I aspirated dark straw-colored ascites. Next, I gently advance the catheter and remove the needle. I affixed drainage tubing, and began draining the ascites with the assistance of Vacutainer's. I drained 3100 mL of ascites. As the flow decreased, I assisted the patient to the left lateral decubitus position to improve drainage, I changed to a hand pump and gravity bag. I drained another 200 mL of ascites.. Once the ascites stopped flowing, I removed the catheter and used a Band-Aid to dress wound. Total volume of paracentesis was 3300 mL
[2022-07-30 11:45] VITALS: BP 104/64; PULSE 83; RESP 16; TEMP 36.2; O2SAT 98
[2022-07-30 11:53] LABS: Abs Immature Grans 0.01 10^3/uL (0.0-0.06); Absolute Basophil Count 0.01 10^3/uL (0.0-0.2); Absolute Eosinophil Count 0.07 10^3/uL (0.0-0.7); Absolute Lymphocyte Count 0.24 10^3/uL (1.2-3.4); Absolute Monocyte Count 0.59 10^3/uL (0.1-0.8); Absolute Neutrophil Count 2.96 10^3/uL (1.2-6.7); Basophils % 0.3; Eosinophils % 1.8; HCT 25.2 % (40.0-50.0); HGB 7.8 g/dL (13.5-17.5); Immature Grans % 0.3; Lymphocytes % 6.2; MCH 24.8 pg (27.0-33.0); MCV 80 fL (80-95); Monocytes % 15.2; Neutrophils % 76.2; Platelet Count 109 10^3/uL (130-400); RBC 3.15 10^6/uL (4.36-5.78); RDW 21.5 % (11.8-14.1); RDW-SD 62.5 fL; WBC 3.89 10^3/uL (4.4-10.8)
[2022-07-30 12:06] LABS: INR 1.3 (0.9-1.1); Prothrombin Time 12.5 sec (9.3-11.0)
[2022-07-30] MEDS: Normal Saline Flush 10 ML SYR IV (12:13)
[2022-07-30 12:26] LABS: Ferritin 52 ng/mL (26-388)
[2022-07-30 14:25] VITALS: BP 105/63; PULSE 79; RESP 20; TEMP 37.2; O2SAT 100
[2022-07-30] MEDS: ALBUMIN HUMAN 25 GM/100 ML BTL IVPB ×2 (14:46→15:17)
[2022-07-30 14:53] VITALS: BP 103/60; PULSE 80; RESP 18; TEMP 36.6; O2SAT 98
== END 2022-07-30 16:01 | disposition home or self-care (01) ==
LOC: SUR 11:13
PROVIDERS: PCP Internal Medicine; Visit Provider Surgery
PROC: 0W9G3ZZ Drainage of Peritoneal Cavity, Percutaneous Approach (ICD-10-PCS; CPT 49082; principal; 2022-07-30 12:30)
DX: R18.8 Other ascites (principal); D50.9 Iron deficiency anemia, unspecified; I48.0 Paroxysmal atrial fibrillation
CPT/HCPCS: 49082; 36415; 96365; 96366; 82728; 85025; 85610

== ENCOUNTER 2022-08-17 10:01 | Observation (INO) | payer MEDICARE, SELFPAY ==
[2022-08-17] VITALS (22 sets, daily range): BP systolic 79–110; BP diastolic 46–68; PULSE 49–80; RESP 14–19; TEMP 36.4–37; O2SAT 96–100
[2022-08-17 10:47] LABS: Abs Immature Grans 0.01 10^3/uL (0.0-0.06); Absolute Basophil Count 0.01 10^3/uL (0.0-0.2); Absolute Eosinophil Count 0.06 10^3/uL (0.0-0.7); Absolute Monocyte Count 0.34 10^3/uL (0.1-0.8); Absolute Neutrophil Count 2.41 10^3/uL (1.2-6.7); Basophils % 0.3; HCT 23.5 % (40.0-50.0); HGB 7.4 g/dL (13.5-17.5); Immature Grans % 0.3; Lymphocytes % 6.6; MCHC 31.5 % (32.0-36.0); MCV 83 fL (80-95); MPV 11.4 fL (8.0-11.0); Monocytes % 11.2; Neutrophils % 79.6; Platelet Count 103 10^3/uL (130-400); RBC 2.85 10^6/uL (4.36-5.78); RDW 21.4 % (11.8-14.1); RDW-SD 63.7 fL; WBC 3.03 10^3/uL (4.4-10.8)
--- NOTE | 2022-08-17 10:52 | ED.GENADUL_ITS ---
Discharge Plan Disposition Patient Disposition: Admit to [facility] Condition: Fair Discharge Details Clinical Impression: Anemia, Thrombocytopenia, Epistaxis Admit Date/Time: 08/17/22 12:18 Admit Provider: Aly Goins Attending Provider: Aly Goins Primary Care Provider: Rudolph Ryan ED Provider: Rufus Ndiaye Discharge Data Discharge Date/Time-TO BE ENTERED AT DEPARTURE: 08/17/22 13:18 Medical Decision Making Patient presenting to the emergency department for chief complaint of epistaxis. He states for the past 25 hours he has had intermittent nosebleeds. He states he has had these in the past but never for this long. Patient does have history of chronic kidney disease, iron deficiency anemia, thrombocytopenia, prostate cancer, is anticoagulated for A-fib. Does state easily bruising but denies any bloody emesis, blood in stools bleeding gums. Physical exam shows patient with significant pallor, conjunctival pallor, borderline hypotension, no tachycardia. Nasal packing that patient placed himself in right nare otherwise unremarkable exam. We will plan on checking blood work and removing packing to further assess for bleeding. Packing was removed and showed no continued bleeding no source for bleeding. Labs were reviewed and show acute worsening of kidney function but review of previous labs show chronic kidney dysfunction. Patient has a platelet count of 103, hemoglobin of 7.4 with hematocrit of 23.5, also did have slightly low WBC at 3.3. CMP also does reveal slight elevation of glucose at 121 and alk phos of 216. Continue to monitor patient and patient had MAP right around 60. I am concerned that patient will need transfusion due to stating symptomatic weakness along with active bleeding and slowly dropping hemoglobin. Discussed with patient risk versus benefit which patient agreed for transfusion. 1 unit was placed. Due to needing blood transfusion and I feel closer monitoring patient was admitted to inpatient unit for further evaluation treatment and stabilizati on as needed. Case was discussed with hospitalist who admitted patient. Lab Data Lab results reviewed: Yes I reviewed the patient's lab results. HPI General Mode of arrival: ambulatory . Date/Time Provider Initiated Documentation: 08/17/22 10:03 . Limitations to Documentation: no limitations . Information obtained by: patient and RN notes reviewed . History of Present Illness 81 year old M presents to the emergency department with the chief complaint of Epistaxis, described as moderate and similar to prior episodes, Quality is described as other (Denies pain or discomfort), and is localized to the left (nare). Patient reports no radiation. Patient started experiencing this day(s) (1) and it has been intermittent. No relieving factors improve symptom(s), No exacerbating factors reported . Patient notes denies chest pain and shortness of breath. Patient did receive the following treatments prior to arrival, none Related Data Home Medications Medication Instructions Recorded Confirmed aspirin 81 mg tablet,delayed 81 mg PO .QOD 12/18/15 08/17/22 release (Aspir-) losartan 50 mg tablet 50 mg PO DAILY 06/12/16 08/17/22 rivaroxaban 15 mg tablet (Xarelto) 15 mg PO HS 07/02/20 08/17/22 tamsulosin 0.4 mg capsule 0.8 mg PO HS 09/25/20 08/17/22 acetaminophen 325 mg capsule 325 mg PO DAILY PRN PRN 07/10/21 08/17/22 (Tylenol) amiodarone 200 mg tablet 200 mg PO DAILY 07/10/21 08/17/22 spironolactone 50 mg tablet 50 mg PO DAILY 07/10/21 08/17/22 ferrous gluconate 240 mg (27 mg 240 mg PO BID 07/27/22 08/17/22 iron) tablet (Ferate) atorvastatin 40 mg tablet 40 mg PO DAILY 08/17/22 08/17/22 furosemide 40 mg tablet 40 mg PO BID 08/17/22 08/17/22 Allergies Allergy/AdvReac Type Severity Reaction Status Date / Time lisinopril AdvReac Intermediate cough Verified 08/17/22 10:15 spironolactone AdvReac Hyperkalemi Verified 08/17/22 10:15 a General Stated Complaint: Epistaxis EUSEBIO: 3 Review of Systems Constitutional Constitutional: Denies chills, Denies fever(s), Denies headache(s), Reports lethargy, Reports malaise and Reports weakness (Generalized) ENT Ears, Nose, Mouth, and Throat: Reports as per HPI, Denies dizziness, Denies headache(s), Reports epistaxis and Denies sore throat Cardiovascular Cardiovascular: Denies chest pain, Denies rapid heart rate and Denies dyspnea Respiratory Respiratory: Denies dyspnea Gastrointestinal Gastrointestinal: Denies abdominal pain, Denies hematochezia and Denies vomiting Genitourinary Genitourinary: Reports hematuria (Chronic) Integumentary/Breasts Skin/Breast: Denies rash and Reports unusual bruising Neurologic Neurologic: Denies dizziness, Denies headache(s) and Reports weakness (Generalized) Hematologic/Lymphatic Hematologic/Lymphatic: Reports easy bleeding and Reports easy bruising PFSH All Active Problems (Updated 08/17/22 @ 15:06 by Rufus Ndiaye NP) Epistaxis (Acute) Hematuria (Acute) COVID-19 (Acute) Ascites (Chronic) Thrombocytopenia (Chronic) Iron deficiency anemia (Acute) DNR (do not resuscitate) (Acute) Chronic kidney disease (Chronic) Fatigue (Acute) Screening for colon cancer (Acute) Abdominal distention (Acute) Cardiomyopathy (Acute) Ventricular tachycardia (Chronic) Thrombocytopenia (Chronic) Anemia (Chronic) NSTEMI (non-ST elevated myocardial infarction) (Acute) Coronary artery disease (Chronic) Cirrhosis (Chronic) Ventricular tachycardia (Chronic) Bone metastasis (Acute) Prostate cancer (Chronic) Incarcerated right inguinal hernia (Acute) Tricuspid regurgitation (Acute) Acute urinary retention (Acute) Urinary retention due to benign prostatic hyperplasia (Acute) Elevated PSA, greater than or equal to 20 ng/ml (Acute) BPH (benign prostatic hyperplasia) (Chronic) Paroxysmal atrial fibrillation (Chronic) Medical History A-fib Anemia Anticoagulation adequate Ascites Bladder outlet obstruction Cardiorenal syndrome Cholelithiasis Congestive heart failure Cor pulmonale Corns and callus GERD (gastroesophageal reflux disease) History of alcohol abuse Hx of congestive heart failure Hx of myocardial infarction 2007 Hyperlipidemia Inguinal hernia Inguinal hernia, recurrent Jaundice Lateral femoral cutaneous entrapment syndrome Leg cramps Myocardial infarct Nail disorder Nocturnal leg cramps Overweight Pain, joint, knee, left Rectal bleeding Surgical History Hx of CABG Hx of cataract surgery Hx of colonoscopy Hx of inguinal hernia surgery S/P CABG (coronary artery bypass graft) 2009 Social History Smoking/Tobacco Use Status: Former Tobacco Use Quit Date: 07/12/89 Tobacco: How many years used: 15 Smoking risk assessment performed?: Yes Alcohol Intake: former Drug use: Never Substance use type: does not use Do you feel safe at home: Yes Do you feel safe in your relationship?: Yes Exam Const General: cooperative, no acute distress and not ill appearing Orientation: alert, awake and oriented x3 [facility] Head: normal to inspection, normocephalic and atraumatic Ears: hearing grossly normal bilaterally General nose exam: external nose normal, nares normal, septum normal, nasal discharge present, no epistaxis, no nasal discharge noted and normal septum Face and sinus: no erythema Mouth: oral mucosae normal and moist mucous membranes Throat: posterior oropharynx normal Eyes Conjunctivae: conjunctival abnormality bilaterally pallor Neck Neck: normal visual inspection, full ROM, no meningeal signs, trachea midline and supple Resp Effort & Inspection: normal respiratory effort, able to speak in complete sentences and no respiratory distress Auscultation: clear to auscultation bilaterally Cardio Rate: regular rate Rhythm: regular rhythm Heart Sounds: S1 normal and S2 normal Skin General skin exam: no rashes or lesions noted Neuro General: patient alert, patient awake, patient oriented x3 and moves all extremities Cognition: normal cognition Speech: speech normal Course Vital Signs Vital signs: Vital Signs Temperature 36.4 C 08/17/22 10:09 Pulse 80 08/17/22 10:09 Respiratory Rate 18 08/17/22 10:09 Blood Pressure 101/55 L 08/17/22 10:09 Pulse Oximetry 100 08/17/22 10:09 Temperature 36.4 C 08/17/22 10:09 Temperature Source Oral 08/17/22 10:09 Pulse 80 08/17/22 10:09 Respiratory Rate 18 08/17/22 10:09 Respiratory Effort Non-Labored 08/17/22 10:14 Blood Pressure 101/55 L 08/17/22 10:09 Blood Pressure Position Sitting 08/17/22 10:09 Pulse Oximetry 100 08/17/22 10:09 Oxygen Delivery Method Room Air 08/17/22 10:09 Oxygen Flow Rate 0 08/17/22 10:09 Pain Level 0 08/17/22 10:09
[2022-08-17 11:01] LABS: ALT 22 U/L (16-63); AST 27 U/L (15-37); Albumin 3.8 g/dL (3.4-5.0); Alkaline Phosphatase 216 U/L (46-116); Anion Gap 9.2 mmol/L (3-11); Anisocytosis 2+; BUN 61 mg/dL (7-18); Bilirubin, Total 0.8 mg/dL (0.2-1.0); CO2 25.8 mmol/L (21.0-32.0); CREATININE 2.9 mg/dL (0.70-1.30); Chloride 101 mmol/L (98-107); Diff Comment RBC Morph Reviewed; Estimated GFR 20.94 (mL/min/1.73m2); Glucose 121 mg/dL (74-106); Potassium 4.9 mmol/L (3.5-5.1); Sodium 136 mmol/L (136-145)
[2022-08-17 12:20] LABS: Source Nasal/Nares
[2022-08-17 12:57] LABS: COVID-19 PCR Negative (Negative)
--- NOTE | 2022-08-17 13:26 | W.PM.HP.N ---
Date of service: 08/17/22 Time of Service: 13:27 Assessment and Plan Assessment and plan (1) Thrombocytopenia: Status: Chronic Assessment and plan: Chronic; related to cirrhosis. Contributing factor to epistaxis. Monitor. (2) Iron deficiency anemia: Status: Acute Assessment and plan: Has planned venofer 200mg IV infusion for 08/18 and 08/19/22 in outpt infusion at [facility]; will infuse while admitted to hospital. Also receiving a unit of pRBCs. Now has contributing factor of blood loss from epistaxis. (3) Chronic kidney disease: Status: Chronic Assessment and plan: with THAD. Transfusing a unit of RBCs. May need mild further IV hydration given cautiously because of cardiomyopathy history and concerns for CHF. (4) Cardiomyopathy: Status: Acute Assessment and plan: Cont losartan and spironolactone. (5) Cirrhosis: Status: Chronic Assessment and plan: No evidence of any acute decompensation. (6) Prostate cancer: Status: Chronic Assessment and plan: With bone metastasis. [place] [facility] [place] depo Lup[place]. (7) A-fib: Assessment and plan: Paroxysmal. Cont amiodarone. Hold Xarelto d/t current epistaxis. (8) Hx of myocardial infarction: Assessment and plan: Holding aspirin d/t current epistaxis. Cont statin. No c/o CP. (9) Epistaxis: Status: Acute Assessment and plan: No active bleeding in ED so no packing placed. Monitor. HOlding Xarelto and ASA. History of Present Illness History of Present Illness Chief Complaint: Nose bleed Narrative: This is an 81 yo male with a PMH of Covid-19, cirrhosis with ascites, prostate cancer with bone metastasis, paroxysmal afib, KRISTYN, CKD, cardiomyopathy, thrombocytopenia, NSTEMI, CAD. He presented to the ED with c/o intermittent epistaxis over the last 24 hours. He has h/o epistaxis but no episode last as long as this one. He has not noted any melena/hematochezia, bleeding gums. No CP/palpitations. No N/v. No syncope, dizziness. Feeling generalized weakness. In ED: Vital Signs Temperature ?36.4 C ?08/17/22 10:09 Pulse ?80 ?08/17/22 10:09 Respiratory Rate ?18 ?08/17/22 10:09 Blood Pressure ?101/55 L ?08/17/22 10:09 Pulse Oximetry ?100 ?08/17/22 10:09 Subsequent systolic BP readings as low as 79 but mostly in the 90's. WBC count 3.03. Hgb 7.4. Plt 103. Electrolytes normal. BUN 61 (typically in the 30's). Creatinine 2.9 (1.9 on 07/23/22). A unit of pRBCs transfused in the ED. Admitting for further monitoring d/t low BP and bleeding. Review of Systems All systems reviewed & are unremarkable except as noted in HPI and below PFSH All Active Problems (Updated 08/17/22 @ 13:37 by Aly Goins MD) Epistaxis (Acute) Hematuria (Acute) COVID-19 (Acute) Ascites (Chronic) Thrombocytopenia (Chronic) Iron deficiency anemia (Acute) DNR (do not resuscitate) (Acute) Chronic kidney disease (Chronic) Fatigue (Acute) Screening for colon cancer (Acute) Abdominal distention (Acute) Cardiomyopathy (Acute) Ventricular tachycardia (Chronic) Thrombocytopenia (Chronic) Anemia (Chronic) NSTEMI (non-ST elevated myocardial infarction) (Acute) Coronary artery disease (Chronic) Cirrhosis (Chronic) Ventricular tachycardia (Chronic) Bone metastasis (Acute) Prostate cancer (Chronic) Incarcerated right inguinal hernia (Acute) Tricuspid regurgitation (Acute) Acute urinary retention (Acute) Urinary retention due to benign prostatic hyperplasia (Acute) Elevated PSA, greater than or equal to 20 ng/ml (Acute) BPH (benign prostatic hyperplasia) (Chronic) Paroxysmal atrial fibrillation (Chronic) Medical History A-fib Anemia Anticoagulation adequate Ascites Bladder outlet obstruction Cardiorenal syndrome Cholelithiasis Congestive heart failure Cor pulmonale Corns and callus GERD (gastroesophageal reflux disease) History of alcohol abuse Hx of congestive heart failure Hx of myocardial infarction 2007 Hyperlipidemia Inguinal hernia Inguinal hernia, recurrent Jaundice Lateral femoral cutaneous entrapment syndrome Leg cramps Myocardial infarct Nail disorder Nocturnal leg cramps Overweight Pain, joint, knee, left Rectal bleeding Surgical History Hx of CABG Hx of cataract surgery Hx of colonoscopy Hx of inguinal hernia surgery S/P CABG (coronary artery bypass graft) 2009 Social History Smoking/Tobacco Use Status: Former Tobacco Use Quit Date: 07/12/89 Tobacco: How many years used: 15 Smoking risk assessment performed?: Yes Alcohol Intake: former Drug use: Never Substance use type: does not use Do you feel safe at home: Yes Do you feel safe in your relationship?: Yes Meds Allergies and Home Medications Allergies Allergy/AdvReac Type Severity Reaction Status Date / Time lisinopril AdvReac Intermediate cough Verified 08/17/22 10:15 spironolactone AdvReac Hyperkalemi Verified 08/17/22 10:15 a Home Medications Medication Instructions Recorded Confirmed Type aspirin 81 mg tablet,delayed 81 mg PO .QOD 12/18/15 08/17/22 History release (Aspir-) losartan 50 mg tablet 50 mg PO DAILY 06/12/16 08/17/22 History rivaroxaban 15 mg tablet (Xarelto) 15 mg PO HS 07/02/20 08/17/22 History tamsulosin 0.4 mg capsule 0.8 mg PO HS 09/25/20 08/17/22 History acetaminophen 325 mg capsule 325 mg PO DAILY PRN PRN 07/10/21 08/17/22 History (Tylenol) amiodarone 200 mg tablet 200 mg PO DAILY 07/10/21 08/17/22 History spironolactone 50 mg tablet 50 mg PO DAILY 07/10/21 08/17/22 History ferrous gluconate 240 mg (27 mg 240 mg PO BID 07/27/22 08/17/22 History iron) tablet (Ferate) atorvastatin 40 mg tablet 40 mg PO DAILY 08/17/22 08/17/22 History furosemide 40 mg tablet 40 mg PO BID 08/17/22 08/17/22 History Exam Narrative Exam Narrative: Frail appearing. Sitting in recliner. Pleasant and interactive. Const General: cooperative Nutritional Appearance: thin Orientation: alert Eyes General: appearance normal, both eyes and all related structures Conjunctivae: conjunctival abnormality bilaterally pallor Neck Neck: full ROM Resp Effort & Inspection: normal respiratory effort Auscultation: clear to auscultation bilaterally Cardio Rate: regular rate Rhythm: regular rhythm Heart Sounds: S1 normal and S2 normal GI Inspection: normal to inspection and distended Palpation: soft Skin General skin exam: no rashes or lesions noted Neuro General: moves all extremities Cranial Nerves: facial strength normal Cognition: normal cognition Speech: speech normal Extrem General: no pedal edema and no calf tenderness Psych Mood: congruent mood Affect: normal affect Results Labs Result diagrams: 08/17/22 10:30 08/17/22 10:30 Labs: Laboratory Results - last 24 hr 08/17/22 08/17/22 08/17/22 10:30 10:30 10:40 WBC 3.03 L RBC 2.85 L Hgb 7.4 L Hct 23.5 L MCV 83 MCH 26.0 L MCHC 31.5 L RDW 21.4 H Plt Count 103 L MPV 11.4 H Immature Gran % 0.3 Neutrophils % 79.6 Lymphocytes % 6.6 Monocytes % 11.2 Eosinophils % 2.0 Basophils % 0.3 Nucleated RBC % 0.0 Absolute Neutrophils 2.41 Absolute Lymphocytes 0.20 L Absolute Monocytes 0.34 Absolute Eosinophils 0.06 Absolute Basophils 0.01 RBC Morphology See Below Anisocytosis 2+ Sodium 136 Potassium 4.9 Chloride 101 Carbon Dioxide 25.8 Anion Gap 9.2 BUN 61 H Creatinine 2.9 H Est GFR (CKD-EPI 2020) 20.94 Glucose 121 H Calcium 9.0 Total Bilirubin 0.8 AST 27 ALT 22 Alkaline Phosphatase 216 H Total Protein 7.0 Albumin 3.8 COVID-19 Source SARS-CoV-2 (PCR) Patient ABO/Rh O Positive Antibody Screen NEGATIVE Crossmatch See Detail 08/17/22 12:17 WBC RBC Hgb Hct MCV MCH MCHC RDW Plt Count MPV Immature Gran % Neutrophils % Lymphocytes % Monocytes % Eosinophils % Basophils % Nucleated RBC % Absolute Neutrophils Absolute Lymphocytes Absolute Monocytes Absolute Eosinophils Absolute Basophils RBC Morphology Anisocytosis Sodium Potassium Chloride Carbon Dioxide Anion Gap BUN Creatinine Est GFR (CKD-EPI 2020) Glucose Calcium Total Bilirubin AST ALT Alkaline Phosphatase Total Protein Albumin COVID-19 Source Nasal/Nares SARS-CoV-2 (PCR) Negative Patient ABO/Rh Antibody Screen Crossmatch Last Vital Signs Temp 36.7 C 08/17/22 13:25 Pulse 67 08/17/22 13:25 Resp 17 08/17/22 13:25 BP 99/62 L 08/17/22 13:25 Pulse Ox 99 08/17/22 13:25 Time Spent Time spent with Patient: <40 minutes Time was spent: preparing to see the patient(eg.review tests), ordering medications,tests, procedures, indepentently interpreting results and care coordination
[2022-08-17] MEDS: IRON SUCROSE COMPLEX 200 MG in Normal Saline 100 ML 400 MG IVPB (14:13)
[2022-08-17] MEDS: Normal Saline Flush 10 ML SYR IVP ×2 (14:15→14:41)
--- NOTE | 2022-08-17 16:21 | PHA.REVIEW2 ---
Pharmacy Admission Review - Admission Clinical Review (Last Reviewed 08/17/22 @ 13:35 by Aly Goins MD) Epistaxis (Acute) Iron deficiency anemia (Acute) Cardiomyopathy (Acute) lisinopril Adverse Reaction (Intermediate, Verified 08/17/22 10:15) cough spironolactone Adverse Reaction (Verified 08/17/22 10:15) Hyperkalemia Resuscitation Status DNR Height 5 ft 10 in Weight 73.549 kg - Renal Dosing Renal Dosing: BUN 61 mg/dL (7-18) H 08/17/22 10:30 Creatinine 2.9 mg/dL (0.70-1.30) H 08/17/22 10:30 Medications needing adjustments: Reviewed (crcl = 20. Scr = 2.9, last was 1.9 on 07/23/22 (this appears to be baseline)) List of meds needing interventions: current meds ok, monitor for addition of new meds that may need renal dosing. xarelto (currently on hold) not recommended if crcl <15 - Anticoagulation Anticoagulation: Hgb 7.4 g/dL (13.5-17.5) L 08/17/22 10:30 Hct 23.5 % (40.0-50.0) L 08/17/22 10:30 Plt Count 103 10^3/uL (130-400) L 08/17/22 10:30 Creatinine 2.9 mg/dL (0.70-1.30) H 08/17/22 10:30 DVT Prophylaxis: Reviewed Therapeutic Anticoagulation: Reviewed Medications: Rivaroxaban (xarelto 15 mg (indication: A.fib), aspirin 81 mg QOD *currently on hold d/t epistaxis*) - Opiate Usage Evaluate Pain Scale/Pains Meds: N/A - Relevant Labs Sodium 136 mmol/L (136-145) 08/17/22 10:30 Potassium 4.9 mmol/L (3.5-5.1) 08/17/22 10:30 Chloride 101 mmol/L (98-107) 08/17/22 10:30 Electrolytes, C-Reactive P, ESR: Reviewed - DM Control DM Control: Glucose 121 mg/dL (74-106) H 08/17/22 10:30 DM Control: N/A - Cardiac Review BP, HR, EF%: Reviewed (hypotensive) - Qtc Review QTc: Reviewed (no recent EKG, last QTc was 518 06/01/22) - IV to PO Switch IV Medications: N/A - Home Meds Home Med List reviewed: Reviewed Relevent Home Meds Not ordered & why?: aspirin, xarelto on hold - epistaxis, low hgb - Current meds Current Medication Order Review: N/A - Comments Comments/Follow Ups: anemia - received 200 mg iron sucrose today (on outpt infusion schedule for 08/18 & 08/19) + 1 unit PRBCs
[2022-08-17 16:28] LABS: PTT Activated 41.9 sec (21.5-31.9); Prothrombin Time 16.6 sec (9.3-11.0)
[2022-08-17 17:16] LABS: INR 1.7 (0.9-1.1)
[2022-08-17] MEDS: Tamsulosin 0.4 MG CAPCR 0.8 MG PO (20:12)
[2022-08-18] VITALS (7 sets, daily range): BP systolic 96–108; BP diastolic 57–66; PULSE 76–86; RESP 16–18; TEMP 36.3–37; O2SAT 95–99
[2022-08-18 05:32] LABS: HGB 7.5 g/dL (13.5-17.5); MCH 25.9 pg (27.0-33.0); MCHC 31.3 % (32.0-36.0); MCV 83 fL (80-95); RDW-SD 62.2 fL; WBC 2.76 10^3/uL (4.4-10.8)
[2022-08-18 05:39] LABS: BUN 61 mg/dL (7-18); CREATININE 2.9 mg/dL (0.70-1.30); Calcium 8.7 mg/dL (8.5-10.1); Chloride 104 mmol/L (98-107); Estimated GFR 20.94 (mL/min/1.73m2); Glucose 97 mg/dL (74-106); Potassium 4.8 mmol/L (3.5-5.1); Sodium 137 mmol/L (136-145)
[2022-08-18 05:54] LABS: Platelet Count 87 10^3/uL (130-400)
[2022-08-18 06:01] LABS: RDW 20.5 % (11.8-14.1)
--- NOTE | 2022-08-18 07:11 | W.UROLOGYCON ---
Date of service: 08/18/22 Time of Service: 07:11 Assessment and Plan Assessment and plan (1) Hematuria: Status: Acute (2) Prostate cancer: Status: Chronic (3) Acute urinary retention: Status: Acute Assessment and plan: His Lupron and section is due today. Based on insurance regulations, the injection will not be covered while the patient is admitted to the hospital, but will be covered in an outpatient clinic setting. Since the expectation is that the patient will be discharged today, we will have him come up to our office after discharge and we will provide him with the Lupron injection. Our cystoscopy equipment could be brought down to the [facility] to do his cystoscopy at the bedside, but since he is coming up to the office anyway, we will plan on doing his cystoscopy and catheter change when he arrives at our office. I will document all of these procedures in the outpatient EMR. History of Present Illness History of Present Illness Chief Complaint: Prostate cancer Narrative: This is an 81-year-old gentleman who has a history of prostate cancer, urinary retention and hematuria. He receives monthly Lupron injections in our office. He is also followed by oncology at the [facility]. He has failed maximal medical therapy for voiding. We have been changing his Lazo catheter monthly. More recently, he has been having gross hematuria and our plan had been to do cystoscopy at the time of his next catheter change. His cystoscopy, catheter change and Lupron injections are all due today. In the interim, he was admitted to the hospital with epistaxis. He was having bleeding for about 25 hours. He has not had any bleeding since his admission. It is expected that he will be able to be discharged today. [facility] All Active Problems (Updated 08/17/22 @ 15:06 by Rufus Ndiaye NP) Epistaxis (Acute) Hematuria (Acute) COVID-19 (Acute) Ascites (Chronic) Thrombocytopenia (Chronic) Iron deficiency anemia (Acute) DNR (do not resuscitate) (Acute) Chronic kidney disease (Chronic) Fatigue (Acute) Screening for colon cancer (Acute) Abdominal distention (Acute) Cardiomyopathy (Acute) Ventricular tachycardia (Chronic) Thrombocytopenia (Chronic) Anemia (Chronic) NSTEMI (non-ST elevated myocardial infarction) (Acute) Coronary artery disease (Chronic) Cirrhosis (Chronic) Ventricular tachycardia (Chronic) Bone metastasis (Acute) Prostate cancer (Chronic) Incarcerated right inguinal hernia (Acute) Tricuspid regurgitation (Acute) Acute urinary retention (Acute) Urinary retention due to benign prostatic hyperplasia (Acute) Elevated PSA, greater than or equal to 20 ng/ml (Acute) BPH (benign prostatic hyperplasia) (Chronic) Paroxysmal atrial fibrillation (Chronic) Medical History A-fib Anemia Anticoagulation adequate Ascites Bladder outlet obstruction Cardiorenal syndrome Cholelithiasis Congestive heart failure Cor pulmonale Corns and callus GERD (gastroesophageal reflux disease) History of alcohol abuse Hx of congestive heart failure Hx of myocardial infarction 2007 Hyperlipidemia Inguinal hernia Inguinal hernia, recurrent Jaundice Lateral femoral cutaneous entrapment syndrome Leg cramps Myocardial infarct Nail disorder Nocturnal leg cramps Overweight Pain, joint, knee, left Rectal bleeding Surgical History Hx of CABG Hx of cataract surgery Hx of colonoscopy Hx of inguinal hernia surgery S/P CABG (coronary artery bypass graft) 2009 Social History Smoking/Tobacco Use Status: Former Tobacco Use Quit Date: 07/12/89 Tobacco: How many years used: 15 Smoking risk assessment performed?: Yes Alcohol Intake: former Drug use: Never Substance use type: does not use Do you feel safe at home: Yes Do you feel safe in your relationship?: Yes Exam Narrative Exam Narrative: He appears comfortable His vital signs are documented elsewhere He is awake and alert Results Last Vital Signs Temp 37.0 C 08/18/22 06:57 Pulse 76 08/18/22 06:57 Resp 16 08/18/22 06:57 BP 97/62 L 08/18/22 06:57 Pulse Ox 95 08/18/22 06:57 Labs Result diagrams: 08/18/22 05:20 08/18/22 05:20 Labs: Laboratory Results - last 24 hr 08/17/22 08/17/22 08/17/22 10:30 10:30 10:30 WBC 3.03 L RBC 2.85 L Hgb 7.4 L Hct 23.5 L MCV 83 MCH 26.0 L MCHC 31.5 L RDW 21.4 H Plt Count 103 L MPV 11.4 H Immature Gran % 0.3 Neutrophils % 79.6 Lymphocytes % 6.6 Monocytes % 11.2 Eosinophils % 2.0 Basophils % 0.3 Nucleated RBC % 0.0 Absolute Neutrophils 2.41 Absolute Lymphocytes 0.20 L Absolute Monocytes 0.34 Absolute Eosinophils 0.06 Absolute Basophils 0.01 RBC Morphology See Below Anisocytosis 2+ PT 16.6 H INR 1.7 H APTT 41.9 H Sodium 136 Potassium 4.9 Chloride 101 Carbon Dioxide 25.8 Anion Gap 9.2 BUN 61 H Creatinine 2.9 H Est GFR (CKD-EPI 2020) 20.94 Glucose 121 H Calcium 9.0 Total Bilirubin 0.8 AST 27 ALT 22 Alkaline Phosphatase 216 H Total Protein 7.0 Albumin 3.8 COVID-19 Source SARS-CoV-2 (PCR) Patient ABO/Rh Antibody Screen Crossmatch 08/17/22 08/17/22 08/18/22 10:40 12:17 05:20 WBC RBC Hgb Hct MCV MCH MCHC RDW Plt Count MPV Immature Gran % Neutrophils % Lymphocytes % Monocytes % Eosinophils % Basophils % Nucleated RBC % Absolute Neutrophils Absolute Lymphocytes Absolute Monocytes Absolute Eosinophils Absolute Basophils RBC Morphology Anisocytosis PT INR APTT Sodium 137 Potassium 4.8 Chloride 104 Carbon Dioxide 24.0 Anion Gap 9.0 BUN 61 H Creatinine 2.9 H Est GFR (CKD-EPI 2020) 20.94 Glucose 97 Calcium 8.7 Total Bilirubin AST ALT Alkaline Phosphatase Total Protein Albumin COVID-19 Source Nasal/Nares SARS-CoV-2 (PCR) Negative Patient ABO/Rh O Positive Antibody Screen NEGATIVE Crossmatch See Detail 08/18/22 05:20 WBC 2.76 L RBC 2.90 L Hgb 7.5 L Hct 24.0 L MCV 83 MCH 25.9 L MCHC 31.3 L RDW 20.5 H Plt Count 87 L MPV Immature Gran % Neutrophils % Lymphocytes % Monocytes % Eosinophils % Basophils % Nucleated RBC % Absolute Neutrophils Absolute Lymphocytes Absolute Monocytes Absolute Eosinophils Absolute Basophils RBC Morphology Anisocytosis PT INR APTT Sodium Potassium Chloride Carbon Dioxide Anion Gap BUN Creatinine Est GFR (CKD-EPI 2020) Glucose Calcium Total Bilirubin AST ALT Alkaline Phosphatase Total Protein Albumin COVID-19 Source SARS-CoV-2 (PCR) Patient ABO/Rh Antibody Screen Crossmatch
--- NOTE | 2022-08-18 07:37 | W.PM.DS.N ---
Date of service: 08/18/22 Time of Service: 07:38 DS: Diagnosis Discharge Diagnosis (1) Hematuria: Status: Acute Asessment and Plan: No gross hematuria noticed in chronic Elkins output Will see urology today as an outpatient (2) Prostate cancer: Status: Chronic Asessment and Plan: With bone metastasis. Receives care at [facility] On monthly depo Lupron (3) Acute urinary retention: Status: Acute Asessment and Plan: No gross hematuria at this time patient to be seen in urology as an outpatient today to exchange his chronic Elkins catheter. Patient is also on Flomax (4) Anemia: Status: Chronic Asessment and Plan: The patient received 2 units of PRBCs and iron sucrose infusion He will be reevaluated by his PCP We will repeat a CBC prior to the f/u appointment Xarelto and aspirin held to be restarted on 08/19/2022 if no further bleeding. (5) Paroxysmal atrial fibrillation: Status: Chronic Asessment and Plan: The patient is on amiodarone Xarelto and aspirin was held for 48 hours due to epitaxis , we will continue to hold until 08/19/2022 Patient instructed to restart Xarelto and his aspirin on 08/19/2022, if no further bleeding (6) Congestive heart failure: Asessment and Plan: Patient was on spironolactone and Losartan. He was previously on a beta radha which was stopped due to bradycardia. Beta-radha were listed as on of the stapples of guideline directed medical therapy for HFrEF (LVEF < 40%), along with RAAS-I, with or w/o a neprilysin inhibitor, sodium-glucose cotransporter-2 that could be beneficial to him, and a lptxiajgtwyhlppfa-akqwxfzx-mtcvbewlrt such as the spironolactone which was held due to worsening kidney function. The patient is also an amiodarone to control his ventricular tachycardia. Patient will have a BMP prior to the f/u appointment with his PCP to reevaluate his renal function improvement. Discharge Plan Disposition Patient Disposition: Admit to [facility] Condition: Improving Discharge Details Reason For Visit: Epistaxis,Anemia Admit Date/Time: 08/17/22 12:18 Admit Provider: Aly Goins Attending Provider: Aly Goins Primary Care Provider: ConnorRudolph E Hospital Course Hospital Course: 81 years old male Patient, with a history of cirrhosis with ascites, HFrEF with a LVEF of 40% on May 2023, chronic kidney disease, iron deficiency anemia, thrombocytopenia, prostate cancer with bone metastasis, and anticoagulated with for A-fib and stroke prevention, presented to the [facility] emergency department for chief complaint of intermittent epistaxis for the past 25 hours. He reported easy bruising and weakness but denied hematemesis, gum bleeding, hematochezia, or melena. The patient presented significantly pale with self-placed right nares packing. He was also borderline hypotensive with a MAP around 60 w/o tachycardia. Upon removal of packing no continuous bleeding and no source of bleeding was found. Lab review showed acute kidney injury on chronic kidney dysfunction with a baseline creatinine of 1.8- 1.9 going to 2.9.Further laboratory results reviewed showed platelet count of ?103, hemoglobin of 7.4 with hematocrit of 23.5, WBC at 3.3, alk phos of 216, INR1.7 and PTT 41.9. Due to symptomatic weakness and continuous bleeding with slowly dropping H&H, the ED provider discussed risk versus benefit of blood transfusions and the patient agreed to receiving blood. The patient was admitted for closer monitoring to inpatient unit for further evaluation treatment and stabilization as needed. The patient received one unit of PRBC and one dose iron- sucrose infusion on 08/17/22 and one on 08/18/22 before discharged and his appointment with [facility] urology. The patient?s H&H after one PRBC was 7.5& 25.9. ?His Xarelto or rivaroxaban , and aspirin were held for 48 hours without further bleeding and the patient was informed to restart his Xarelto and aspirin if no further bleeding occurs. The patient will get a CBC and BMP before his follow-up appointment with his PCP this week. Spironolactone held and will be addressed by the PCP based on creatinine trend and guideline directed medical therapy for heart failure. Home Meds and New Rx's Prescriptions: No Action acetaminophen [Tylenol] 325 mg capsule 325 mg PO DAILY PRN PRN Rx Instructions: for pain amiodarone 200 mg tablet 200 mg PO DAILY spironolactone 50 mg tablet 50 mg PO DAILY Label Comments: Pt reports slight reaction to medication but PCP told him he needed it more than the problems it caused so he continues to be on this medication despite the adverse reaction Xarelto 15 mg tablet 15 mg PO HS Hold Instructions: Resume on 07/30/22. Rx Instructions: must administer with evening meal ferrous gluconate [Ferate] 240 mg (27 mg iron) tablet 240 mg PO BID aspirin [Aspir-81] 81 MG tablet,delayed release (DR/EC) 81 mg PO .QOD Label Comments: 06/14/17 pt last day taking this is 06/17/17 pt aware, DCW losartan 50 MG tablet 50 mg PO DAILY tamsulosin 0.4 mg capsule 0.8 mg PO HS atorvastatin 40 mg tablet 40 mg PO DAILY Label Comments: TAKE ONE TABLET BY MOUTH DAILY furosemide 40 mg tablet 40 mg PO BID Discharge Instructions Stand Alone Forms: Nursing Discharge Form Referrals: Rudolph Ryan [Primary Care Provider] - 08/27/22 3:00 pm Activity:: Activity as Tolerated Equipment/Supplies:: No Equipment Needed Diet:: As Tolerated DS: Summary Time Spent with Patient providing and/or coordinating discharge services: Greater than 30 minutes Status at Discharge Functional status at discharge: uses cane/walker Overall status at discharge: patient is back to baseline Mental Status: mental status grossly normal Speech and Movement: speech and movement normal Mood: congruent mood Affect: normal affect Exam Narrative Exam Narrative: Sitting in recliner and appears comfortable. Pleasant and interactive. Const General: cooperative Nutritional Appearance: thin Orientation: alert and oriented x3 HENMT Head: normal to inspection Mouth: oral mucosae normal and lip normal Eyes General: appearance normal, both eyes and all related structures Neck Neck: full ROM Resp Effort & Inspection: normal respiratory effort Auscultation: clear to auscultation bilaterally Cardio Rate: regular rate Heart Sounds: S1 normal and S2 normal Bruits: no abdominal aortic bruits and no carotid bruits GI Inspection: normal to inspection and distended Palpation: nontender (semi-firm) Other: elkins catheter in place , clear and yellow urine Skin General skin exam: no rashes or lesions noted Other: pale Neuro General: moves all extremities Cranial Nerves: facial strength normal Cognition: normal cognition Speech: speech normal Extrem General: no pedal edema and no calf tenderness Left lower extremity: edema (trace ankles) Psych Mental Status: mental status grossly normal Speech and Movement: speech and movement normal Mood: congruent mood Affect: normal affect DS: Data Vitals/I&O Vitals and I&O: Vital Signs Temperature 98.6 F 08/18/22 06:57 Temperature Source Tympanic 08/18/22 06:57 Pulse 76 08/18/22 06:57 Pulse Rhythm Irregular 08/17/22 20:20 Respiratory Rate 16 08/18/22 06:57 Respiratory Effort Non-Labored 08/17/22 20:20 Respiratory Depth Normal 08/17/22 20:20 Respiratory Pattern Normal 08/17/22 20:20 Blood Pressure 97/62 L 08/18/22 06:57 Blood Pressure Mean 56 08/17/22 13:01 Blood Pressure Position Sitting 08/17/22 10:09 Pulse Oximetry 95 08/18/22 06:57 Oxygen Delivery Method Room Air 08/18/22 06:57 Oxygen Flow Rate 0 08/18/22 06:57 Pain Level 0 08/18/22 06:57 Comment 08/17/22 14:46 Intake & Output 08/17/22 08/17/22 08/18/22 11:59 23:59 11:59 Intake Total 760 / 760 Output Total 600 / 600 200 / 200 Balance 160 / 160 -200 / -200 Weight 162 lb 162 lb 2.382 oz Intake: IV 110 / 110 Oral 300 / 300 Blood Product 350 / 350 Rbc Leuko Reduced Unit 350 / 350 [id number] Output: Urine 600 / 600 200 / 200 Other: Urine Color Dark Catherine Dark Catherine Urine Appearance Clear Clear Urine Odor Foul Strong Comment Catheter bag was changed from leg bag to bedside bag for night time. Urine was extremely dark and smelly. Data Completed and Pending Labs on day of discharge: Labs from last 24 hours 08/18/22 08/18/22 08/17/22 05:20 05:20 12:17 WBC 2.76 L RBC 2.90 L Hgb 7.5 L Hct 24.0 L MCV 83 MCH 25.9 L MCHC 31.3 L RDW 20.5 H Plt Count 87 L MPV Immature Gran % Neutrophils % Lymphocytes % Monocytes % Eosinophils % Basophils % Nucleated RBC % Absolute Neutrophils Absolute Lymphocytes Absolute Monocytes Absolute Eosinophils Absolute Basophils RBC Morphology Anisocytosis PT INR APTT Sodium 137 Potassium 4.8 Chloride 104 Carbon Dioxide 24.0 Anion Gap 9.0 BUN 61 H Creatinine 2.9 H Est GFR (CKD-EPI 2020) 20.94 Glucose 97 Calcium 8.7 Total Bilirubin AST ALT Alkaline Phosphatase Total Protein Albumin COVID-19 Source Nasal/Nares SARS-CoV-2 (PCR) Negative Patient ABO/Rh Antibody Screen Crossmatch 08/17/22 08/17/22 08/17/22 10:40 10:30 10:30 WBC 3.03 L RBC 2.85 L Hgb 7.4 L Hct 23.5 L MCV 83 MCH 26.0 L MCHC 31.5 L RDW 21.4 H Plt Count 103 L MPV 11.4 H Immature Gran % 0.3 Neutrophils % 79.6 Lymphocytes % 6.6 Monocytes % 11.2 Eosinophils % 2.0 Basophils % 0.3 Nucleated RBC % 0.0 Absolute Neutrophils 2.41 Absolute Lymphocytes 0.20 L Absolute Monocytes 0.34 Absolute Eosinophils 0.06 Absolute Basophils 0.01 RBC Morphology See Below Anisocytosis 2+ PT 16.6 H INR 1.7 H APTT 41.9 H Sodium Potassium Chloride Carbon Dioxide Anion Gap BUN Creatinine Est GFR (CKD-EPI 2020) Glucose Calcium Total Bilirubin AST ALT Alkaline Phosphatase Total Protein Albumin COVID-19 Source SARS-CoV-2 (PCR) Patient ABO/Rh O Positive Antibody Screen NEGATIVE Crossmatch See Detail 08/17/22 10:30 WBC RBC Hgb Hct MCV MCH MCHC RDW Plt Count MPV Immature Gran % Neutrophils % Lymphocytes % Monocytes % Eosinophils % Basophils % Nucleated RBC % Absolute Neutrophils Absolute Lymphocytes Absolute Monocytes Absolute Eosinophils Absolute Basophils RBC Morphology Anisocytosis PT INR APTT Sodium 136 Potassium 4.9 Chloride 101 Carbon Dioxide 25.8 Anion Gap 9.2 BUN 61 H Creatinine 2.9 H Est GFR (CKD-EPI 2020) 20.94 Glucose 121 H Calcium 9.0 Total Bilirubin 0.8 AST 27 ALT 22 Alkaline Phosphatase 216 H Total Protein 7.0 Albumin 3.8 COVID-19 Source SARS-CoV-2 (PCR) Patient ABO/Rh Antibody Screen Crossmatch [facility] All Active Problems (Updated 08/17/22 @ 15:06 by Rufus Ndiaye NP) Epistaxis (Acute) Hematuria (Acute) COVID-19 (Acute) Ascites (Chronic) Thrombocytopenia (Chronic) Iron deficiency anemia (Acute) DNR (do not resuscitate) (Acute) Chronic kidney disease (Chronic) Fatigue (Acute) Screening for colon cancer (Acute) Abdominal distention (Acute) Cardiomyopathy (Acute) Ventricular tachycardia (Chronic) Thrombocytopenia (Chronic) Anemia (Chronic) NSTEMI (non-ST elevated myocardial infarction) (Acute) Coronary artery disease (Chronic) Cirrhosis (Chronic) Ventricular tachycardia (Chronic) Bone metastasis (Acute) Prostate cancer (Chronic) Incarcerated right inguinal hernia (Acute) Tricuspid regurgitation (Acute) Acute urinary retention (Acute) Urinary retention due to benign prostatic hyperplasia (Acute) Elevated PSA, greater than or equal to 20 ng/ml (Acute) BPH (benign prostatic hyperplasia) (Chronic) Paroxysmal atrial fibrillation (Chronic) Medical History A-fib Anemia Anticoagulation adequate Ascites Bladder outlet obstruction Cardiorenal syndrome Cholelithiasis Congestive heart failure Cor pulmonale Corns and callus GERD (gastroesophageal reflux disease) History of alcohol abuse Hx of congestive heart failure Hx of myocardial infarction 2007 Hyperlipidemia Inguinal hernia Inguinal hernia, recurrent Jaundice Lateral femoral cutaneous entrapment syndrome Leg cramps Myocardial infarct Nail disorder Nocturnal leg cramps Overweight Pain, joint, knee, left Rectal bleeding Surgical History Hx of CABG Hx of cataract surgery Hx of colonoscopy Hx of inguinal hernia surgery S/P CABG (coronary artery bypass graft) 2009 Social History Smoking/Tobacco Use Status: Former Tobacco Use Quit Date: 07/12/89 Tobacco: How many years used: 15 Smoking risk assessment performed?: Yes Alcohol Intake: former Drug use: Never Substance use type: does not use Do you feel safe at home: Yes Do you feel safe in your relationship?: Yes Time Spent with Patient Time Spent with Patient: <45 minutes Time was spent: preparing to see the patient(eg.review tests), referring, communicating with other health healthcare administrative assistant and counseling the patient
--- NOTE | 2022-08-18 08:50 | PDOC.CMDIS ---
- If Service Date Differs Date of service: 08/18/22 Time of Service: 08:51 LACE Index Scoring Tool - Questions: Length of Stay (in days): 1 Acuity (Admit via E.D.?): Yes Comorbidities: Congestive Heart Failure, Metastatic Solid Tumor (Bone Mets) E.D. Visits: 10 - Answers: Total Score: 13 Risk of Readmission: High Risk Care Management Discharge Reason for Hospitalization: Hypoxic and hypercapnic respiratory failure Discharge Plan: Gasper is discharged home via private vehicle with family. He will follow up with community providers and discharge plan of care as prescribed. Follow up with Primary Care on 08/27/22, as scheduled. Repeat labs to be done prior to that appointment. No new services are ordered. Patient/Family Education Needs: Review discharge instructions, limitations, medications and plan to follow up with community providers. Discuss ask me three.
[2022-08-18 09:17] LABS: Bilirubin Negative (Negative); Blood Large (Negative); Clarity Sl Cloudy (Clear); Glucose Negative (Negative); Ketones Negative (Negative); Leukocyte Esterase Moderate (Negative); Nitrite Negative (Negative); Specific Gravity 1.015 (1.005-1.025); pH 7.5 (5-8)
[2022-08-18] MEDS: Amiodarone 200 MG TAB PO (09:25)
[2022-08-18] MEDS: Losartan 50 MG TAB PO (09:25)
[2022-08-18] MEDS: Atorvastatin 40 MG TAB PO (09:26)
[2022-08-18 09:27] LABS: Bacteria Many HPF (Negative); C & S Indicated? Yes; Casts Negative LPF (Negative); Crystals Few Amorphous HPF (Negative); Epithelial Cells Rare HPF (Negative); Mucus Negative (Negative); RBC >50 HPF (0-2); WBC 20-50 HPF (0-5)
== END 2022-08-18 11:56 | disposition home or self-care (01) ==
LOC: ER 12:49 → MS 13:23
PROVIDERS: Admitting Provider Family Medicine; Emergency Provider Nurse Practitioner Family; PCP Internal Medicine; Visit Provider Family Medicine
DX: R04.0 Epistaxis (principal); R31.9 Hematuria, unspecified; N17.9 Acute kidney failure, unspecified; D50.9 Iron deficiency anemia, unspecified; D69.6 Thrombocytopenia, unspecified; I47.20 Ventricular tachycardia, unspecified; R33.9 Retention of urine, unspecified; I48.0 Paroxysmal atrial fibrillation; N18.9 Chronic kidney disease, unspecified; I50.20 Unspecified systolic (congestive) heart failure; R18.8 Other ascites; Z66 Do not resuscitate; I42.9 Cardiomyopathy, unspecified; I25.2 Old myocardial infarction; I25.10 Atherosclerotic heart disease of native coronary artery without angina pectoris; K74.60 Unspecified cirrhosis of liver; C79.51 Secondary malignant neoplasm of bone; C61 Malignant neoplasm of prostate; Z79.01 Long term (current) use of anticoagulants; Z79.899 Other long term (current) drug therapy; Z20.822 Contact with and (suspected) exposure to COVID-19
CPT/HCPCS: 36415; 52000; 80048; 80053; 85027; 86850; 86900; 86901; 86920; 87635; 96365; 96402; 99214; 99221; 99285; 81003; 81015; 85025; 85610; 85730; 87086; 99222; 99239; G0378; J1756; J9217; P9016

== ENCOUNTER → 2022-08-18 11:55 | Outpatient (BNVA) | payer MEDICARE, SELFPAY | PROVIDERS: PCP Internal Medicine; Referring Provider Internal Medicine; Visit Provider Urology | DX: Z46.6 Encounter for fitting and adjustment of urinary device (principal); Z96.0 Presence of urogenital implants; C61 Malignant neoplasm of prostate; R31.9 Hematuria, unspecified; R33.8 Other retention of urine | CPT/HCPCS: 52000; 96402; 99214; J9217 ==

== ENCOUNTER 2022-08-20 13:12 | Outpatient (CLI) | payer MEDICARE, SELFPAY ==
[2022-08-20 12:34] LABS: Abs Immature Grans 0.01 10^3/uL (0.0-0.06); Absolute Eosinophil Count 0.07 10^3/uL (0.0-0.7); Absolute Lymphocyte Count 0.18 10^3/uL (1.2-3.4); Absolute Monocyte Count 0.49 10^3/uL (0.1-0.8); Absolute Neutrophil Count 2.89 10^3/uL (1.2-6.7); Eosinophils % 1.9; HCT 27.8 % (40.0-50.0); HGB 8.7 g/dL (13.5-17.5); Immature Grans % 0.3; Lymphocytes % 4.9; MCH 26.6 pg (27.0-33.0); MCHC 31.3 % (32.0-36.0); MCV 85 fL (80-95); Monocytes % 13.5; Neutrophils % 79.4; Platelet Count 95 10^3/uL (130-400); RBC 3.27 10^6/uL (4.36-5.78); RDW-SD 64.6 fL; WBC 3.64 10^3/uL (4.4-10.8)
[2022-08-20 12:57] LABS: Anion Gap 6.8 mmol/L (3-11); BUN 55 mg/dL (7-18); CO2 27.2 mmol/L (21.0-32.0); CREATININE 2.6 mg/dL (0.70-1.30); Calcium 9.2 mg/dL (8.5-10.1); Chloride 102 mmol/L (98-107); Estimated GFR 23.87 (mL/min/1.73m2); Glucose 96 mg/dL (74-106); Potassium 5.7 mmol/L (3.5-5.1); Sodium 136 mmol/L (136-145)
[2022-08-20 13:05] LABS: Anisocytosis 2+; Diff Comment Diff Reviewed; Hypochromasia 2+
[2022-08-20 13:06] LABS: Poikilocytes 2+
[2022-08-20 17:36] LABS: Reticulocyte 1.6 % (0.5-2.4)
== END 2022-08-20 13:13 | disposition home or self-care (01) ==
LOC: LBO 13:13
PROVIDERS: PCP Internal Medicine; Visit Provider Nurse Practitioner Family
DX: D64.9 Anemia, unspecified (principal); R04.0 Epistaxis; R31.9 Hematuria, unspecified; N18.9 Chronic kidney disease, unspecified
CPT/HCPCS: 36415; 80048; 85025; 85045

== ENCOUNTER 2022-08-24 13:08 | Outpatient (CLI) | payer MEDICARE, SELFPAY ==
[2022-08-24 13:38] LABS: HCT 27.8 % (40.0-50.0); HGB 8.6 g/dL (13.5-17.5); MCH 26.5 pg (27.0-33.0); MCHC 30.9 % (32.0-36.0); MCV 86 fL (80-95); RDW 21.8 % (11.8-14.1); RDW-SD 68.6 fL
[2022-08-24 13:50] LABS: Platelet Count 87 10^3/uL (130-400); RBC 3.25 10^6/uL (4.36-5.78)
[2022-08-24 14:15] LABS: Albumin 3.7 g/dL (3.4-5.0); Anion Gap 9.1 mmol/L (3-11); BUN 49 mg/dL (7-18); CO2 25.9 mmol/L (21.0-32.0); CREATININE 2.3 mg/dL (0.70-1.30); Calcium 8.8 mg/dL (8.5-10.1); Chloride 103 mmol/L (98-107); Estimated GFR 27.66 (mL/min/1.73m2); Glucose 110 mg/dL (74-106); LDH 216 U/L (85-227); Potassium 4.5 mmol/L (3.5-5.1); Sodium 138 mmol/L (136-145)
[2022-08-24 14:30] LABS: Iron 34 ug/dL (65-175); Total Iron Binding Capacity 328 ug/dL (250-450); Transferrin Sat 10 % (20-55)
[2022-08-25 10:21] LABS: Haptoglobin 42 mg/dL (32-197)
== END 2022-08-24 13:09 | disposition home or self-care (01) ==
LOC: LBO 13:09
PROVIDERS: PCP Internal Medicine; Visit Provider Internal Medicine
DX: C61 Malignant neoplasm of prostate; R18.8 Other ascites; D64.9 Anemia, unspecified; N18.9 Chronic kidney disease, unspecified
CPT/HCPCS: 36415; 80048; 80069; 85027; 83010; 83540; 83550; 83615

== ENCOUNTER 2022-08-25 17:52 | Outpatient (REF) | payer MEDICARE, SELFPAY | END 2022-08-25 17:53 | disposition home or self-care (01) | LOC: NCHCN 17:52 | PROVIDERS: PCP Internal Medicine; Visit Provider Internal Medicine | DX: D64.9 Anemia, unspecified (principal) | CPT/HCPCS: 82272 ==

== ENCOUNTER 2022-08-31 06:06 | Day surgery (SDC) | payer MEDICARE, SELFPAY ==
[2022-08-31 06:41] VITALS: BP 115/62; PULSE 90; RESP 20; TEMP 36.4; O2SAT 100
--- NOTE | 2022-08-31 06:48 | ANES.PREOP_ITS ---
General Info Date of Service Date Performed: 08/31/22 Height: 5 ft 10 in Weight: 73.482 kg Body Mass Index (BMI): 23.2 Surgical Procedure: Operation Date: 08/31/22 07:40 Proposed Procedure Side Surgeon p Cystoscopy w/ Fulgration Bladder Lesion Gasper Lazcano MD Meds Allergies and Home Medications Allergies Allergy/AdvReac Type Severity Reaction Status Date / Time lisinopril AdvReac Intermediate cough Verified 08/31/22 06:24 spironolactone AdvReac Hyperkalemi Verified 08/31/22 06:24 a Home Medication Medication Instructions Recorded aspirin 81 mg tablet,delayed 81 mg PO .QOD 12/18/15 release (Aspir-) losartan 50 mg tablet 50 mg PO DAILY 06/12/16 rivaroxaban 15 mg tablet (Xarelto) 15 mg PO HS 07/02/20 tamsulosin 0.4 mg capsule 0.8 mg PO HS 09/25/20 acetaminophen 325 mg capsule 325 mg PO DAILY PRN PRN 07/10/21 (Tylenol) amiodarone 200 mg tablet 200 mg PO DAILY 07/10/21 ferrous gluconate 240 mg (27 mg 240 mg PO BID 07/27/22 iron) tablet (Ferate) atorvastatin 40 mg tablet 40 mg PO DAILY 08/17/22 furosemide 40 mg tablet 80 mg PO BID 08/17/22 ascorbic acid (vitamin C) 500 mg 500 08/31/22 tablet (Vitamin C) dexlansoprazole 60 mg 60 mg PO DAILY 08/31/22 capsule,biphase delayed release lactulose 20 gram/30 mL oral 20 g PO DAILY 08/31/22 solution multivitamin 1 tab PO DAILY 08/31/22 Current Visit Medications: Current Medications Generic Name Dose Route Start Last Admin Trade Name Freq PRN Reason Stop Dose Admin Ringer's Solution 1,000 mls @ 80 mls/hr 08/31/22 06:00 IV 09/27/22 23:59 INFUSION JOE Cefazolin Sodium/Dextrose 2 gm in 50 mls @ 100 mls/hr 08/31/22 06:00 Ancef Duplex IVPB 09/27/22 23:59 PREOP JOE IV Miscellaneous Supplies 1 each 08/31/22 06:00 Iv Access IV 09/27/22 23:59 DIRECTED JOE Sodium Chloride 0 ml 08/31/22 06:00 Normal Saline Flush 10 Ml Syr IV 09/27/22 23:59 PRN PRN Sodium Chloride 0 ml 08/31/22 06:00 Normal Saline 10 Ml Vial IJ 09/27/22 23:59 DIRECTED PRN Sterile Water 0 ml 08/31/22 06:00 Water,Injection,Sterile 10 Ml Vial IJ 09/27/22 23:59 DIRECTED PRN PFSH Active Problems Active Problems: Problem Status Onset Code Cirrhosis Paroxysmal atrial fibrillation Incarcerated right inguinal hernia K40.30 Tricuspid regurgitation I07.1 BPH (benign prostatic hyperplasia) N40.0 Acute urinary retention R33.8 Elevated PSA, greater than or equal to 20 ng/ml R97.20 Urinary retention due to benign prostatic hyperplasia N40.1, R33.8 Nuclear sclerotic cataract of right eye H25.11 Posterior subcapsular age-related cataract, right eye H25.041 Nuclear sclerotic cataract of left eye H25.12 Posterior subcapsular age-related cataract of left eye H25.042 Prostate cancer C61 Bone metastasis C79.51 Ventricular tachycardia I47.2 Coronary artery disease I25.10 NSTEMI (non-ST elevated myocardial infarction) I21.4 Anemia D64.9 Thrombocytopenia D69.6 Ventricular tachycardia I47.2 Cardiomyopathy I42.9 Abdominal distention R14.0 Screening for colon cancer Z12.11 Fatigue R53.83 DNR (do not resuscitate) Z66 COVID-19 U07.1 Ascites R18.8 Medical History Medical History (Updated 08/31/22 @ 07:05 by Gasper Lazcano MD) A-fib Anemia Anticoagulation adequate Ascites Bladder outlet obstruction Cardiorenal syndrome Cholelithiasis Chronic kidney disease Congestive heart failure Cor pulmonale Corns and callus GERD (gastroesophageal reflux disease) Gross hematuria History of alcohol abuse Hx of congestive heart failure Hx of myocardial infarction 2007 Hyperlipidemia Inguinal hernia Inguinal hernia, recurrent Iron deficiency anemia Jaundice Lateral femoral cutaneous entrapment syndrome Leg cramps Myocardial infarct Nail disorder Nocturnal leg cramps Overweight Pain, joint, knee, left Rectal bleeding Thrombocytopenia Medical History Comments:: pt states he has to wait 90 days since Covid in April when he received Paxlovid to receive his Covid booster. Pt. says PCP office is open for it on Tuesdays, so he will pursue that Pt has condom catheter to leg bag-emptied 150cc clear yellow urine output, pt has a Depends on also. Surgical History Surgical History (Updated 08/31/22 @ 06:34 by Elena Rowland) Hx of CABG Hx of cataract surgery Hx of colonoscopy Hx of cystoscopy Hx of inguinal hernia surgery S/P CABG (coronary artery bypass graft) 2009 Tobacco Smoking/Tobacco Use Status: Former Tobacco Use Alcohol Alcohol Intake: former Substance Use Substance use: Never Substance use type: does not use Vital Signs and Lab Results Vital Signs Most Recent Vital Signs in EMR: Most Recent Vital Signs Temp Pulse Resp BP Pulse Ox 36.4 C L 90 20 115/62 100 08/31/22 06:41 08/31/22 06:41 08/31/22 06:41 08/31/22 06:41 08/31/22 06:41 Lab Results Blood Type / Crossmatch: Patient ABO/Rh O Positive 08/17/22 Antibody Screen NEGATIVE 08/17/22 Crossmatch See Detail 08/17/22 Complete Blood Count: White Blood Count 3.30 10^3/uL (4.4-10.8) L 08/24/22 13:27 Red Blood Count 3.25 10^6/uL (4.36-5.78) L 08/24/22 13:27 Hemoglobin 8.6 g/dL (13.5-17.5) L 08/24/22 13:27 Hematocrit 27.8 % (40.0-50.0) L 08/24/22 13:27 Platelet Count 87 10^3/uL (130-400) L 08/24/22 13:27 Complete Metabolic Panel: Sodium 138 mmol/L (136-145) 08/24/22 13:27 Potassium 4.5 mmol/L (3.5-5.1) 08/24/22 13:27 Chloride 103 mmol/L (98-107) 08/24/22 13:27 Carbon Dioxide 25.9 mmol/L (21.0-32.0) 08/24/22 13:27 BUN 49 mg/dL (7-18) H 08/24/22 13:27 Creatinine 2.3 mg/dL (0.70-1.30) H 08/24/22 13:27 Est GFR (CKD-EPI 2020) 27.66 (mL/min/1.73m2) 08/24/22 13:27 Calcium 8.8 mg/dL (8.5-10.1) 08/24/22 13:27 Albumin 3.7 g/dL (3.4-5.0) 08/24/22 13:27 Glucose 110 mg/dL (74-106) H 08/24/22 13:27 Liver Function Panel: Alanine Aminotransferase (ALT/SGPT) 22 U/L (16-63) 08/17/22 10: 30 Aspartate Amino Transf (AST/SGOT) 27 U/L (15-37) 08/17/22 10:30 Coagulation Panel: INR International Normalized Ratio 1.7 (0.9-1.1) H 08/17/22 10 :30 Prothrombin Time 16.6 sec (9.3-11.0) H 08/17/22 10:30 Activated Partial Thromboplast Time 41.9 sec (21.5-31.9) H 08/17/22 10:30 Cardiac Panel: No Data to Display Arterial Blood Gas: No Data to Display Venous Blood Gas: No Data to Display Pancreas Panel: No Data to Display Thyroid Panel: No Data to Display Infectious Disease: Coronavirus (COVID-19)(PCR) Negative (Negative) 08/17/22 12:17 Coronavirus 2019 Source Nasal/Nares 08/17/22 12:17 Blood Cultures: No Data to Display Toxicology Panel: No Data to Display Imaging and Studies Imaging and Studies Study information below may be from another EMR and interpreted by another provider. Please see original notes in EMR for more complete details. Echocardiogram Summary: Conclusion Left Ventricle : Left ventricle is borderline dilated. D-shaped septum is consistent with RV pressure and volume overload. Left ventricular systolic function is mild to moderately decreased. Mild concentric left ventricular hypertrophy. There is normal LV segmental wall motion. LVEF is 45-50%. The diastolic function is indeterminate but likely elevated filling pressures. Right Ventricle : Right ventricle dilated. Right ventricle is moderately hypokinetic. Atria : Left atrium is severely dilated. Right atrium is severely dilated. Aortic Valve : Aortic valve is trileaflet. There is normal aortic valve excursion. Moderate aortic regurgitation. Mitral Valve : Mitral valve leaflets are thickened. Mitral annuloplasty changes are present. Moderate to severe mitral regurgitation (RF 51%) Mild to moderate mitral stenosis (mean gradient is 5mmhg) Tricuspid Valve : The tricuspid valve leaflets are thickened but open well. Severe tricuspid regurgitation with hepatic flow reversal. The tricuspid valve leaflets do not completely coapt. Great Vessels : Dilated IVC with poor inspiration collapse is consistent with elevated right atrial pressure. Compared to echocardiogram dated 07/02/2017 there is a minimal decrease in ejection fraction. Tricuspid regurgitation remains severe and mitral as well as aortic regurgitation remain moderate. Anesthesia Assessment and Plan Anesthesia History Personal History: No History of Anesthesia Complications Family History: No Family History of Anesthesia Complications Exercise Tolerance Exercise Tolerance: Metabolic Equivalents>4 Pertinent Negatives Pertinent Negatives: No Symptoms of GERD Cardiac & Pulmonary Exam Cardiac Exam: Normal S1/S2 Heart Sounds Pulmonary Exam: Clear Bilateral Breath Sounds Implantable Cardiac Device Does patient have a Pacemaker or an ICD?: No Airway Exam Known Difficult Airway: No Mallampati Class: 2 Mouth Opening: Normal (> 3cm) Thyromental Distance: Greater than 3 cm Neck Range of Motion: Full ROM Neck Circumference: Normal Teeth Condition: Removable Dentures/Plates Upper ASA Classification ASA Score: ASA 4 Emergency Case?: No NPO Status NPO Status: NPO Clears >2 hours, Solids >8 hours Anesthesia Plan Resuscitation Status: Full Code Anesthesia Technique: General Anesthesia Airway Planned: Natural Airway Monitors Used: Standard Monitors Preoperative Comments:: Discussed increased risk related to CV status and overall diagnosis with patient and spouse, agree to continue.
[2022-08-31 06:51] VITALS: BMI 23.2
--- NOTE | 2022-08-31 06:57 | W.PM.HP.N ---
Date of service: 08/31/22 Time of Service: 06:57 Assessment and Plan Assessment and plan (1) Gross hematuria: Assessment and plan: We will plan to do a cystoscopy and fulguration of the suspected bleeding source. This is for palliative care only to attempt to prevent repeated visits to the ED when he develops urinary retention. This procedure would not be expected to add any therapeutic benefits. History of Present Illness History of Present Illness Chief Complaint: Gross hematuria Narrative: This is an 81-year-old gentleman who has a history of metastatic prostate cancer and urinary retention. He has a chronic indwelling urethral catheter and has had gross hematuria, clots and clot retention. I cystoscoped him in the office and found a friable area in the bladder with adherent clot. He presents for cystoscopy with fulguration of the area. Review of Systems Narrative: Fatigue. No fevers or chills No vision change or dysphasia No diabetes or thyroid dysfunction No shortness of breath, cough or hemoptysis Atrial fibrillation. No chest pain Ascites. No ulcers, jaundice No seizures, strokes or peripheral neuropathy Thrombocytopenia and anemia No gout PFSH All Active Problems (Updated 08/31/22 @ 07:05 by Gasper Lazcano MD) Cirrhosis (Chronic) Paroxysmal atrial fibrillation (Chronic) Incarcerated right inguinal hernia (Acute) Tricuspid regurgitation (Acute) BPH (benign prostatic hyperplasia) (Chronic) Acute urinary retention (Acute) Prostate cancer (Chronic) Bone metastasis (Acute) Ventricular tachycardia (Chronic) Coronary artery disease (Chronic) NSTEMI (non-ST elevated myocardial infarction) (Acute) Anemia (Chronic) Thrombocytopenia (Chronic) Ventricular tachycardia (Chronic) Cardiomyopathy (Acute) Abdominal distention (Acute) Screening for colon cancer (Acute) Fatigue (Acute) DNR (do not resuscitate) (Acute) COVID-19 (Acute) Ascites (Chronic) Medical History (Updated 08/31/22 @ 07:05 by Gasper Lazcano MD) A-fib Anemia Anticoagulation adequate Ascites Bladder outlet obstruction Cardiorenal syndrome Cholelithiasis Chronic kidney disease Congestive heart failure Cor pulmonale Corns and callus GERD (gastroesophageal reflux disease) Gross hematuria History of alcohol abuse Hx of congestive heart failure Hx of myocardial infarction 2007 Hyperlipidemia Inguinal hernia Inguinal hernia, recurrent Iron deficiency anemia Jaundice Lateral femoral cutaneous entrapment syndrome Leg cramps Myocardial infarct Nail disorder Nocturnal leg cramps Overweight Pain, joint, knee, left Rectal bleeding Thrombocytopenia Surgical History (Updated 08/31/22 @ 06:34 by Elena Rowland) Hx of CABG Hx of cataract surgery Hx of colonoscopy Hx of cystoscopy Hx of inguinal hernia surgery S/P CABG (coronary artery bypass graft) 2009 Social History Smoking/Tobacco Use Status: Former Tobacco Use Quit Date: 07/12/89 Tobacco: How many years used: 15 Smoking risk assessment performed?: Yes Alcohol Intake: former Drug use: Never Substance use type: does not use Do you feel safe at home: Yes Do you feel safe in your relationship?: Yes Additional Social history: unable assess privately Meds Allergies and Home Medications Allergies Allergy/AdvReac Type Severity Reaction Status Date / Time lisinopril AdvReac Intermediate cough Verified 08/31/22 06:24 spironolactone AdvReac Hyperkalemi Verified 08/31/22 06:24 a Home Medications Medication Instructions Recorded Confirmed Type aspirin 81 mg tablet,delayed 81 mg PO .QOD 12/18/15 08/31/22 History release (Aspir-) losartan 50 mg tablet 50 mg PO DAILY 06/12/16 08/31/22 History rivaroxaban 15 mg tablet (Xarelto) 15 mg PO HS 07/02/20 08/28/22 History tamsulosin 0.4 mg capsule 0.8 mg PO HS 09/25/20 08/31/22 History acetaminophen 325 mg capsule 325 mg PO DAILY PRN PRN 07/10/21 08/31/22 History (Tylenol) amiodarone 200 mg tablet 200 mg PO DAILY 07/10/21 08/31/22 History ferrous gluconate 240 mg (27 mg 240 mg PO BID 07/27/22 08/31/22 History iron) tablet (Ferate) atorvastatin 40 mg tablet 40 mg PO DAILY 08/17/22 08/31/22 History furosemide 40 mg tablet 80 mg PO BID 08/17/22 08/31/22 History ascorbic acid (vitamin C) 500 mg 500 08/31/22 History tablet (Vitamin C) dexlansoprazole 60 mg 60 mg PO DAILY 08/31/22 08/31/22 History capsule,biphase delayed release lactulose 20 gram/30 mL oral 20 g PO DAILY 08/31/22 08/31/22 History solution multivitamin 1 tab PO DAILY 08/31/22 08/31/22 History Exam Const General: frail appearing Neck Neck: supple Resp Effort & Inspection: normal respiratory effort Auscultation: clear to auscultation bilaterally Cardio Rate: abnormal rate Rhythm: abnormal rhythm GI Inspection: distended Neuro General: patient alert and patient awake Results Last Vital Signs Temp 36.4 C L 08/31/22 06:41 Pulse 90 08/31/22 06:41 Resp 20 08/31/22 06:41 BP 115/62 08/31/22 06:41 Pulse Ox 100 08/31/22 06:41
[2022-08-31] MEDS: Lactated Ringers 1,000 ML 80 ML IV (07:00)
[2022-08-31] MEDS: ceFAZolin 2 GM/50 ML BAG IVPB (07:36)
[2022-08-31] MEDS: Lidocaine 2% Jelly 6 ML SYR (07:50)
--- NOTE | 2022-08-31 08:01 | W.PM.DSUDISC ---
Date of service: 08/31/22 Time of Service: 08:01 Discharge Plan Disposition Condition: Stable Discharge Details Reason For Visit: cystoscopy Attending Provider: Gasper Lazcano Primary Care Provider: Rudolph Ryan Home Meds and New Rx's Prescriptions: No Action acetaminophen [Tylenol] 325 mg capsule 325 mg PO DAILY PRN PRN Rx Instructions: for pain amiodarone 200 mg tablet 200 mg PO DAILY Xarelto 15 mg tablet 15 mg PO HS Hold Instructions: Resume on 07/30/22. Rx Instructions: must administer with evening meal ferrous gluconate [Ferate] 240 mg (27 mg iron) tablet 240 mg PO BID aspirin [Aspir-81] 81 MG tablet,delayed release (DR/EC) 81 mg PO .QOD Patient Comments: 06/14/17 pt last day taking this is 06/17/17 pt aware, DCW losartan 50 MG tablet 50 mg PO DAILY tamsulosin 0.4 mg capsule 0.8 mg PO HS atorvastatin 40 mg tablet 40 mg PO DAILY Patient Comments: TAKE ONE TABLET BY MOUTH DAILY furosemide 40 mg tablet 80 mg PO BID multivitamin Tablet 1 tab PO DAILY ascorbic acid (vitamin C) [Vitamin C] 500 mg Tablet 500 dexlansoprazole 60 mg Capsule,Biphase Delayed Releas 60 mg PO DAILY lactulose 20 gram/30 mL Solution 20 g PO DAILY Discharge Instructions Additional Instructions: elkins to legbag continue with monthly catheter change and Lupron injections in our office Activity:: Activity as Tolerated Shower/Bathe:: 24 hours Equipment/Supplies:: elkins to legbag Diet:: As Tolerated Discharge Orders Discharge Orders: Discharge Order (Routine); Ordered 08/31/22 Ordered By: Gasper Lazcano DS: Diagnosis Discharge Diagnosis (1) Gross hematuria:
[2022-08-31 08:09] VITALS: BP 81/47; PULSE 76; RESP 22; TEMP 36.6; O2SAT 96
--- NOTE | 2022-08-31 08:11 | W.PM.OP ---
Date of service: 08/31/22 Time of Service: 08:11 Operative Note Operative Note DATE OF PROCEDURE: 08/31/22 PRE-OP DIAGNOSIS: Gross hematuria POST-OP DIAGNOSIS: same PROCEDURE: Cystoscopy with fulguration of bladder lesion SURGEON: Gasper Lazcano ANESTHESIA TYPE: General:No Airway Refer to Anesthesia Record ESTIMATED BLOOD LOSS: 0 PATHOLOGY: none sent COMPLICATIONS: None Patient was transported to: same day Patient's condition: stable Implants: 16 [employer] Lazo catheter with 10 cc of sterile water in balloon Indications: This is an 81-year-old gentleman who has a history of metastatic prostate cancer. He has chronic urinary retention and is managed with an indwelling Lazo catheter. He has had multiple occurrences of gross hematuria, clots and clot retention. When I cystoscoped him in the office, we found an area of friable mucosa on the bladder wall posteriorly. There was a clot adherent to this area of abnormal mucosa. The location of the mucosa is likely in the path of his Lazo catheter. He presents for fulguration of the site. Findings: Papillary friable mucosa on posterior bladder wall Procedure Description: The patient was brought to the operating room on 08/31/2022. After successful induction of general anesthesia without intubation, he was placed in the dorsal lithotomy position. His indwelling Lazo catheter was removed. His genitalia was prepped and draped. 2% Xylocaine jelly was then instilled into the urethra to act as a local anesthetic. A 24 [place] resectoscope sheath was passed through the urethra into the bladder. We inspected the urethra using a visual obturator and a 30 degree lens. The pendulous, bulbous and membranous urethra appeared normal with no active bleeding. The prostatic urethra showed an irregular contour, but no active bleeding. The bladder neck was entered and the bladder mucosa was inspected with the 30 degree lens. Posteriorly, we again identified papillary mucosa with an adherent clot. No additional abnormal mucosal areas were seen. I then used a button electrode and cautery to fulgurate the abnormal area of mucosa. We did not biopsy the area as this was a palliative case to help prevent future bleeding and clot retention episodes. Once the abnormal area had been fulgurated, the bladder was filled with irrigant and the resectoscope was removed. A new 16 [place] Lazo catheter was passed back through the urethra into the bladder. The catheter balloon was inflated with 10 cc of sterile water and the catheter was hooked to gravity drainage. He tolerated this procedure and was taken back to the day surgery unit in stable condition.
[2022-08-31 08:14] VITALS: BP 87/35; PULSE 78; RESP 21; TEMP 36.6; O2SAT 97
[2022-08-31] MEDS: ePHEDrine 25 MG/5 ML Syringe IVP (08:14)
[2022-08-31 08:19] VITALS: BP 100/59; PULSE 72; RESP 22; TEMP 36.6; O2SAT 97
[2022-08-31 08:40] VITALS: BP 108/66; PULSE 76; RESP 22; TEMP 36.4; O2SAT 98
[2022-08-31] MEDS: Phenazopyridine 200 MG TAB PO (09:02)
--- NOTE | 2022-08-31 09:02 | W.ANESPOSTOP ---
Postoperative Evaluation Date, Time and Location Date Performed: 08/31/22 Time Performed: 09:02 Patient Location: Day Surgery Unit Vital Signs Most Recent Imported Vital Signs: Most Recent Vital Signs Temp Pulse Resp BP Pulse Ox 36.4 C L 76 22 108/66 98 08/31/22 08:40 08/31/22 08:40 08/31/22 08:40 08/31/22 08:40 08/31/22 08:40 Pain Score Most Recent Pain Score: Most Recent Pain Score Pain Level 0 08/31/22 08:40 Assessment Mental Status: Awake (Alert & Oriented to Patient Baseline) Airway and Respiratory Function: Patent airway with normal (patient baseline) respiratory exam Cardiovascular Function: Hemodynamically Stable Hydration Status: Adequately Hydrated Nausea & Vomiting: No Nausea or Vomiting Pain: Pt. Denies Any Pain Peripheral Nerve Block: Patient did not receive a nerve block
[2022-08-31 09:05] VITALS: BP 112/68; PULSE 74; RESP 20; TEMP 36; O2SAT 96
== END 2022-08-31 09:41 | disposition home or self-care (01) ==
LOC: DSU 08:30 → SUR 09:45
PROVIDERS: PCP Internal Medicine; Visit Provider Urology
PROC: 0TBB8ZZ Excision of Bladder, Via Natural or Artificial Opening Endoscopic (ICD-10-PCS; CPT 52224; principal; 2022-08-31 07:30)
DX: R31.0 Gross hematuria (principal); N32.89 Other specified disorders of bladder; N32.0 Bladder-neck obstruction; C61 Malignant neoplasm of prostate
CPT/HCPCS: 52224; J0690; J2370; J2405; J2704

== ENCOUNTER 2022-09-17 03:01 | Outpatient (CLI) | payer MEDICARE, SELFPAY ==
[2022-09-17 15:03] LABS: HCT 29.8 % (40.0-50.0); HGB 9.3 g/dL (13.5-17.5); MCH 27.7 pg (27.0-33.0); MCHC 31.2 % (32.0-36.0); MCV 89 fL (80-95); MPV 10.7 fL (8.0-11.0); RBC 3.36 10^6/uL (4.36-5.78); RDW 21.3 % (11.8-14.1); RDW-SD 67.7 fL; WBC 3.21 10^3/uL (4.4-10.8)
[2022-09-17 15:16] LABS: Platelet Count 85 10^3/uL (130-400)
[2022-09-17 16:11] LABS: Iron 45 ug/dL (65-175); Total Iron Binding Capacity 297 ug/dL (250-450); Transferrin Sat 15 % (20-55)
== END 2022-09-17 03:02 | disposition home or self-care (01) ==
LOC: LBO 03:02
PROVIDERS: PCP Internal Medicine; Visit Provider Internal Medicine
DX: D64.9 Anemia, unspecified (principal)
CPT/HCPCS: 36415; 85027; 83540; 83550

== ENCOUNTER 2022-09-25 01:00 | Outpatient (RCR) | payer MEDICARE, SELFPAY ==
[2022-09-24] MEDS: Normal Saline Flush 10 ML SYR IVP (13:14)
[2022-09-24] MEDS: IRON SUCROSE COMPLEX 200 MG in Normal Saline 100 ML 440 MG IVPB (13:14)
[2022-09-25] MEDS: IRON SUCROSE COMPLEX 200 MG in Normal Saline 100 ML 440 MG IVPB (13:04)
[2022-09-25] MEDS: Normal Saline Flush 10 ML SYR IVP (13:05)
== END 2022-10-09 23:59 | disposition home or self-care (01) ==
LOC: INF 01:00
PROVIDERS: PCP Internal Medicine; Visit Provider Internal Medicine
DX: D64.9 Anemia, unspecified (principal)
CPT/HCPCS: 96365; J1756

== ENCOUNTER 2022-10-06 02:17 | Outpatient (CLI) | payer MEDICARE, SELFPAY ==
[2022-10-06 12:07] LABS: Abs Immature Grans 0.01 10^3/uL (0.0-0.06); Absolute Basophil Count 0.02 10^3/uL (0.0-0.2); Absolute Eosinophil Count 0.05 10^3/uL (0.0-0.7); Absolute Lymphocyte Count 0.23 10^3/uL (1.2-3.4); Absolute Monocyte Count 0.41 10^3/uL (0.1-0.8); Absolute Neutrophil Count 2.28 10^3/uL (1.2-6.7); Basophils % 0.7; Eosinophils % 1.7; HCT 30.5 % (40.0-50.0); HGB 9.7 g/dL (13.5-17.5); Immature Grans % 0.3; Lymphocytes % 7.7; MCH 27.6 pg (27.0-33.0); MCHC 31.8 % (32.0-36.0); MCV 87 fL (80-95); Monocytes % 13.7; Neutrophils % 75.9; RBC 3.51 10^6/uL (4.36-5.78); RDW 20.4 % (11.8-14.1)
[2022-10-06 12:26] LABS: Anisocytosis 1+; Diff Comment Diff Reviewed; Platelet Count 80 10^3/uL (130-400); Poikilocytes 1+
[2022-10-06 12:28] LABS: ALT 30 U/L (16-63); AST 33 U/L (15-37); Albumin 3.9 g/dL (3.4-5.0); Alkaline Phosphatase 279 U/L (46-116); Anion Gap 8.5 mmol/L (3-11); BUN 28 mg/dL (7-18); Bilirubin, Total 1.1 mg/dL (0.2-1.0); CO2 28.5 mmol/L (21.0-32.0); CREATININE 1.9 mg/dL (0.70-1.30); Chloride 102 mmol/L (98-107); Estimated GFR 34.79 (mL/min/1.73m2); Glucose 95 mg/dL (74-106); Potassium 4.4 mmol/L (3.5-5.1); Sodium 139 mmol/L (136-145); Total Protein 7.2 g/dL (6.4-8.2)
[2022-10-06 13:07] LABS: Iron 53 ug/dL (65-175)
[2022-10-07 17:21] LABS: PSA, Ultrasensitive 0.19 ng/mL (<= 7.2)
[2022-10-10 04:23] LABS: Testosterone, Total <7.0 ng/dL (240-950)
== END 2022-10-06 02:18 | disposition home or self-care (01) ==
LOC: LBO 02:18
PROVIDERS: PCP Internal Medicine; Visit Provider Internal Medicine
DX: C61 Malignant neoplasm of prostate (principal); D64.9 Anemia, unspecified; C79.51 Secondary malignant neoplasm of bone
CPT/HCPCS: 36415; 80053; 84153; 84403; 83540; 85025

== ENCOUNTER → 2022-10-19 14:19 | Outpatient (BNVA) | payer MEDICARE, SELFPAY | PROVIDERS: PCP Internal Medicine; Visit Provider Nurse Practitioner Gerontology | DX: C79.51 Secondary malignant neoplasm of bone (principal) | CPT/HCPCS: 96402; J9217 ==

== ENCOUNTER 2022-10-22 13:18 | Day surgery (SDC) | payer MEDICARE, SELFPAY ==
[2022-10-22 13:35] VITALS: BP 104/54; PULSE 74; RESP 16; TEMP 36.6; O2SAT 98
[2022-10-22] MEDS: Lactated Ringers 1,000 ML 30 ML IV (14:14)
[2022-10-22 15:00] VITALS: BP 109/65; PULSE 74; RESP 16; TEMP 36.6; O2SAT 98
--- NOTE | 2022-10-22 15:06 | W.PM.DSUDISC ---
Date of service: 10/22/22 Time of Service: 15:07 Discharge Plan Disposition Patient Disposition: Home Condition: Good Discharge Details Reason For Visit: PARACENTESIS Attending Provider: Hector Gay Primary Care Provider: Rudolph Ryan Home Meds and New Rx's Prescriptions: Continued acetaminophen [Tylenol] 325 mg capsule 325 mg PO DAILY PRN PRN Rx Instructions: for pain amiodarone 200 mg tablet 200 mg PO DAILY ferrous gluconate [Ferate] 240 mg (27 mg iron) tablet 240 mg PO BID aspirin [Aspir-81] 81 MG tablet,delayed release (DR/EC) 81 mg PO .QOD Patient Comments: 06/14/17 pt last day taking this is 06/17/17 pt aware, DCW losartan 50 MG tablet 50 mg PO DAILY tamsulosin 0.4 mg capsule 0.8 mg PO HS atorvastatin 40 mg tablet 40 mg PO DAILY Patient Comments: TAKE ONE TABLET BY MOUTH DAILY furosemide 40 mg tablet 40 mg PO BID multivitamin Tablet 1 tab PO DAILY ascorbic acid (vitamin C) [Vitamin C] 500 mg Tablet 500 mg PO DAILY dexlansoprazole 60 mg Capsule,Biphase Delayed Releas 60 mg PO DAILY lactulose 20 gram/30 mL Solution 20 g PO DAILY Discharge Instructions Instructions: Paracentesis (DC) Additional Instructions: Gasper, I drained approximately 3 L of ascites from your abdomen today. Hopefully, this will provide you some relief. As we talked about, there is the potential for some drainage from the needle hole. I have tried to apply a tight Band-Aid here to minimize the chances of that. If you need to change the dressing, using some gauze and some large tape with a little bit more pressure might help. Certainly, please feel free to contact me if you have any troubles. Hopefully, the Band-Aid will work just fine. If that is the case, you should remove it in approximately 48 hours, and keep the site clean with warm soapy water. Please feel free to contact my office to schedule your next paracentesis if your symptoms come back. Obviously, if you have any questions at all, please do not hesitate to call. Remove Dressings/Wound Care:: 48 hours Shower/Bathe:: 48 hours Diet:: As Tolerated DS: Diagnosis Discharge Diagnosis (1) Cirrhosis: Status: Chronic Asessment and Plan: Therapeutic paracentesis of tense ascites today. I drained 3 L
--- NOTE | 2022-10-22 15:09 | ROE_ITS ---
Date of service: 10/22/22 Time of Service: 15:09 Operative Note Operative Note DATE OF PROCEDURE: 10/22/22 PRE-OP DIAGNOSIS: Tense ascites POST-OP DIAGNOSIS: same PROCEDURE: Therapeutic paracentesis SURGEON: Hector Gay ANESTHESIA TYPE: Local By Surgeon ESTIMATED BLOOD LOSS: 5 PATHOLOGY: none sent COMPLICATIONS: None Patient was transported to: same day Patient's condition: stable Indications: Gasper is an 81-year-old male with cirrhosis, and dependence ascites that causes abdominal pain Procedure Description: I started by performing a limited ultrasound of the abdomen to identify appropriate site for paracentesis. Next, I selected the left lower quadrant as the ideal site for paracentesis. I then prepped and draped the abdomen. Next, using ultrasound guidance, I anesthetized the skin with 1% lidocaine with epinephrine. I used the ultrasound to guide the needle down to the peritoneal level which was also anesthetized. I then made a small incision in the skin with a 11 blade scalpel. Next, I advanced the 5 Dominican paracentesis needle and catheter through the incision and into the peritoneal cavity under the direct vision of the ultrasound. I aspirated blood-tinged ascites. Next, I gently advance the catheter and remove the needle. I affixed drainage tubing, and began draining the ascites with the assistance of Vacutainer's. I drained 2.6 L of ascites. As the flow decreased, I assisted the patient to the left lateral decubitus position and transitioned to hand pumping to improve drainage. In total I drained approximately 3 L of ascites. I applied a Band-Aid to the puncture site.
== END 2022-10-22 15:36 | disposition home or self-care (01) ==
PROVIDERS: PCP Internal Medicine; Visit Provider Surgery
PROC: 0W9G3ZZ Drainage of Peritoneal Cavity, Percutaneous Approach (ICD-10-PCS; CPT 49082; principal; 2022-10-22 14:15)
DX: R18.8 Other ascites (principal); K74.60 Unspecified cirrhosis of liver
CPT/HCPCS: 49083

== ENCOUNTER 2022-10-27 07:48 | Outpatient (CLI) | payer MEDICARE, SELFPAY ==
--- NOTE | 2022-10-27 07:48 | RT.EKG_ITS ---
APPROVED REPORT Exam: Resting ECG Reason for Exam: CAD, Afib Patient Location: O HR:78 bpm ECG Measurements Heart Rate 78 AXIS TX [id number] P [id number] QRSd 133 QRS 101 QT 387 T 103 QTc 441 Conclusion Atrial fibrillation...? atrial activity Ventricular premature complex...V complex w/ short R-R interval RBBB and LPFB...QRSd >120mS, axis(90,210) Nonspecific T abnormalities, lateral leads...T <-0.10mV, I aVL V5 V6
== END 2022-10-27 07:49 | disposition home or self-care (01) ==
LOC: DI.CARD 07:49
PROVIDERS: PCP Internal Medicine; Visit Provider Internal Medicine Cardiovascular Disease
DX: I25.10 Atherosclerotic heart disease of native coronary artery without angina pectoris (principal); I42.9 Cardiomyopathy, unspecified
CPT/HCPCS: 93010

== ENCOUNTER → 2022-10-27 11:12 | Outpatient (BNVA) | payer MEDICARE, SELFPAY | PROVIDERS: PCP Internal Medicine; Visit Provider Internal Medicine Cardiovascular Disease | DX: I47.20 Ventricular tachycardia, unspecified (principal); I48.21 Permanent atrial fibrillation; I25.10 Atherosclerotic heart disease of native coronary artery without angina pectoris; Z98.890 Other specified postprocedural states; I42.9 Cardiomyopathy, unspecified | CPT/HCPCS: 93005; 99214 ==

== ENCOUNTER → 2022-11-19 13:51 | Outpatient (BNVA) | payer MEDICARE, SELFPAY | PROVIDERS: PCP Internal Medicine; Visit Provider Nurse Practitioner Gerontology | DX: C61 Malignant neoplasm of prostate (principal) | CPT/HCPCS: 96402; J9217 ==

== ENCOUNTER 2022-12-18 05:47 | Emergency (ER) | payer MEDICARE, SELFPAY ==
[2022-12-18 05:52] VITALS: BP 120/68; PULSE 88; RESP 16; TEMP 36.6; O2SAT 98
--- NOTE | 2022-12-18 05:59 | W.ED.GENAD ---
Discharge Plan Disposition Patient Disposition: Home Condition: Good Discharge Details Clinical Impression: Complication, blocked Lazo catheter Primary Care Provider: Rudolph Ryan ED Provider: Luis Quigley Home Meds and New Rx's Prescriptions: No Action acetaminophen [Tylenol] 325 mg capsule 325 mg PO DAILY PRN PRN Rx Instructions: for pain amiodarone 200 mg tablet 200 mg PO DAILY ferrous gluconate [Ferate] 240 mg (27 mg iron) tablet 240 mg PO BID aspirin [Aspir-81] 81 MG tablet,delayed release (DR/EC) 81 mg PO .QOD Patient Comments: 06/14/17 pt last day taking this is 06/17/17 pt aware, DCW losartan 50 MG tablet 50 mg PO DAILY tamsulosin 0.4 mg capsule 0.8 mg PO HS atorvastatin 40 mg tablet 40 mg PO DAILY Patient Comments: TAKE ONE TABLET BY MOUTH DAILY furosemide 40 mg tablet 40 mg PO BID multivitamin Tablet 1 tab PO DAILY ascorbic acid (vitamin C) [Vitamin C] 500 mg Tablet 500 mg PO DAILY dexlansoprazole 60 mg Capsule,Biphase Delayed Releas 60 mg PO DAILY lactulose 20 gram/30 mL Solution 20 g PO DAILY Discharge Instructions Additional Instructions: At this time your new Lazo catheter is working well. There was evidence of potential bacteria and potential infection on your urinalysis, however you otherwise have no symptoms right now. Because of the potential interactions with your other medications we will hold off on antibiotics at this time as you are asymptomatic and wait for cultures to return of your urine. If you develop symptoms, or your cultures come back in a concerning fashion, you may need antibacterial treatment. Please continue to follow-up closely with your urologist at your scheduled visit on Wednesday, as well as your primary care provider. If you notice any worsening of your symptoms, or any new symptoms such as vomiting, diarrhea, fever, chills, shortness of breath, chest pain, numbness, weakness, or fainting , please return immediately to the emergency department for reevaluation. Please follow up with your primary care provider as soon as possible for reassessment and reevaluation. As always, it was a pleasure participating in your medical care today. Referrals: Gaspre Lazcano MD [ [facility] STAFF PHYSICIAN] - Rudolph Ryan [Primary Care Provider] - Medical Decision Making 82-year-old male who is DNR/DNI with a history of paroxysmal atrial fibrillation on a daily aspirin, cirrrhosis with ascites, prostate cancer, chronic kidney disease, NSTEMI, BPH with chronic urinary retention and chronic indwelling Lazo who presents today for urinary retention. Patient states that he is due to have his Lazo catheter changed by Dr. Lazcano in 3 days. Since 10:30 PM last night he has not been able to urinate through the Lazo catheter. He denies any fever or chills. He admits to cramping and a pressure sensation in the suprapubic region. He denies any recent blood. No other complaints at this time. No other modifying factors. Exam demonstrates an unremarkable genital exam. Lazo catheter appears in place. Suspect clogging due to age of the catheter. We will change out the catheter to relieve the current clinical evidence of urinary retention. 6:46 AM Lazo catheter was removed, small amount of discharge/clot was noted on the tip. New catheter was placed without complication. 300+ cc of urine was drained. Patient feels much better. He states that the cramping has resolved. Urinalysis does show evidence of WBCs, leuk esterase and nitrates, however the patient has no fever or chills whatsoever. With the patient otherwise being asymptomatic, and the presence of the notably long chronic indwelling Lazo, I do not feel that we should jump towards treatment immediately especially as potential beverly quinolones for pseudomonal coverage would negatively interact with his amiodarone. At this time we will send his urine for cultures, and have him follow-up closely with his urologist at his scheduled appointment in 72 hours on Wednesday morning. Patient otherwise feels well and would like to go home. Patient stable for discharge. I have extensively reviewed the treatment plan and discharge instructions with the patient and their family. I have addressed all patient concerns at this time. The patient and family was made aware of what symptoms to monitor for that would warrant a return to the emergency department. Discussed the plan with the patient and family, they demonstrate verbal understanding and agreement with our assessment and plan at this time. The documentation in this chart was dictated using Grapeword dictation software. Please excuse any dictation errors. HPI General Date/Time Provider Initiated Documentation: 12/18/22 05:49. HPI Narrative: 82-year-old male who is DNR/DNI with a history of paroxysmal atrial fibrillation on a daily aspirin, cirrrhosis with ascites, prostate cancer, chronic kidney disease, NSTEMI, BPH with chronic urinary retention and chronic indwelling Lazo who presents today for urinary retention. Patient states that he is due to have his Lazo catheter changed by Dr. Lazcano in 3 days. Since 10:30 PM last night he has not been able to urinate through the Lazo catheter. He denies any fever or chills. He admits to cramping and a pressure sensation in the suprapubic region. He denies any recent blood. No other complaints at this time. No other modifying factors. Related Data Home Medications Medication Instructions Recorded Confirmed aspirin 81 mg tablet,delayed 81 mg PO .QOD 12/18/15 12/18/22 release (Aspir-) losartan 50 mg tablet 50 mg PO DAILY 06/12/16 12/18/22 tamsulosin 0.4 mg capsule 0.8 mg PO HS 09/25/20 12/18/22 acetaminophen 325 mg capsule 325 mg PO DAILY PRN PRN 07/10/21 12/18/22 (Tylenol) amiodarone 200 mg tablet 200 mg PO DAILY 07/10/21 12/18/22 ferrous gluconate 240 mg (27 mg 240 mg PO BID 07/27/22 12/18/22 iron) tablet (Ferate) atorvastatin 40 mg tablet 40 mg PO DAILY 08/17/22 12/18/22 furosemide 40 mg tablet 40 mg PO BID 08/17/22 12/18/22 ascorbic acid (vitamin C) 500 mg 500 mg PO DAILY 08/31/22 12/18/22 tablet (Vitamin C) dexlansoprazole 60 mg 60 mg PO DAILY 08/31/22 12/18/22 capsule,biphase delayed release lactulose 20 gram/30 mL oral 20 g PO DAILY 08/31/22 12/18/22 solution multivitamin 1 tab PO DAILY 08/31/22 12/18/22 Allergies Allergy/AdvReac Type Severity Reaction Status Date / Time lisinopril AdvReac Intermediate cough Verified 12/18/22 05:56 spironolactone AdvReac Hyperkalemi Verified 12/18/22 05:56 a General Stated Complaint: Urinary EUSEBIO: 3 Review of Systems All systems reviewed & are unremarkable except as noted in HPI and below PFSH All Active Problems (Updated 12/18/22 @ 06:45 by Luis Quigley DO) Complication, blocked Lazo catheter (Acute) Cirrhosis (Chronic) Paroxysmal atrial fibrillation (Chronic) Incarcerated right inguinal hernia (Acute) Tricuspid regurgitation (Acute) BPH (benign prostatic hyperplasia) (Chronic) Acute urinary retention (Acute) Prostate cancer (Chronic) Bone metastasis (Acute) Ventricular tachycardia (Chronic) Coronary artery disease (Chronic) NSTEMI (non-ST elevated myocardial infarction) (Acute) Anemia (Chronic) Thrombocytopenia (Chronic) Ventricular tachycardia (Chronic) Cardiomyopathy (Acute) Abdominal distention (Acute) Screening for colon cancer (Acute) Fatigue (Acute) DNR (do not resuscitate) (Acute) COVID-19 (Acute) Ascites (Chronic) Medical History A-fib Anemia Anticoagulation adequate Ascites Bladder outlet obstruction Cardiorenal syndrome Cholelithiasis Chronic kidney disease Congestive heart failure Cor pulmonale Corns and callus GERD (gastroesophageal reflux disease) Gross hematuria History of alcohol abuse Hx of congestive heart failure Hx of myocardial infarction 2007 Hyperlipidemia Inguinal hernia Inguinal hernia, recurrent Iron deficiency anemia Jaundice Lateral femoral cutaneous entrapment syndrome Leg cramps Myocardial infarct Nail disorder Nocturnal leg cramps Overweight Pain, joint, knee, left Rectal bleeding Thrombocytopenia Surgical History Hx of CABG Hx of cataract surgery Hx of colonoscopy Hx of cystoscopy Hx of inguinal hernia surgery S/P CABG (coronary artery bypass graft) 2009 Social History Smoking/Tobacco Use Status: Former Tobacco Use Quit Date: 07/12/89 Tobacco: How many years used: 15 Smoking risk assessment performed?: Yes Alcohol Intake: former Drug use: Never Substance use type: does not use Do you feel safe at home: Yes Do you feel safe in your relationship?: Yes Additional Social history: unable assess privately-10/22/22 mkb Exam Narrative Exam Narrative: 1.Const: Well-nourished, Well-developed, appearing stated age 2.Eyes: PERRL, no conjunctival injection, and symmetrical lids. 3.ENT: Atraumatic external nose and ears. Moist MM. Neck: Symmetric, trachea midline, No thyromegaly. 4.CVS: +S1/S2, No murmurs or gallops. Peripheral pulses 2+ and equal in all extremities. Brisk capillary refill in all extremities. 5.RESP: Unlabored respiratory effort. Clear to auscultation bilaterally. No wheezes rales or rhonchi 6.GI: Soft, generalized ascites is present, no abdominal tenderness, genital exam demonstrates intact male genitalia, and place Lazo catheter. No leaking. No redness or blood. Notably palpable bladder in the pelvic region. 7.MSK: Normocephalic/Atraumatic, Extremities w/o deformity or ttp No cyanosis or clubbing, Normal movement of all extremities 8.Skin: Warm, Dry. No rashes or lesions. 9.Neuro: account services manager II-XII grossly intact. Sensation grossly intact, no focal neurologic deficits. 10.Psych: (AAO) x3. Appropriate mood and affect Course Vital Signs Vital signs: Vital Signs Temperature 36.6 C 12/18/22 05:52 Pulse 88 12/18/22 05:52 Respiratory Rate 16 12/18/22 05:52 Blood Pressure 120/68 12/18/22 05:52 Pulse Oximetry 98 12/18/22 05:52 Temperature 36.6 C 12/18/22 05:52 Temperature Source Oral 12/18/22 05:52 Pulse 88 12/18/22 05:52 Respiratory Rate 16 12/18/22 05:52 Respiratory Effort Normal 12/18/22 05:52 Blood Pressure 120/68 12/18/22 05:52 Blood Pressure Position Supine 12/18/22 05:52 Pulse Oximetry 98 12/18/22 05:52 Oxygen Delivery Method Room Air 12/18/22 05:52 Oxygen Flow Rate 0 12/18/22 05:52 Pain Level 10 12/18/22 05:52
[2022-12-18 06:16] LABS: Bilirubin Negative (Negative); Blood Moderate (Negative); Clarity Sl Cloudy (Clear); Glucose Negative (Negative); Ketones Negative (Negative); Leukocyte Esterase Moderate (Negative); Nitrite Positive (Negative); Urobilinogen 0.2 mg/dL (Up to 0.2); pH 6.5 (5-8)
[2022-12-18 06:26] LABS: Bacteria Many HPF (Negative); C & S Indicated? Yes; Casts 0-2 Hyaline LPF (Negative); Crystals Negative HPF (Negative); Epithelial Cells Negative HPF (Negative); Mucus Moderate (Negative); WBC >50 HPF (0-5)
== END 2022-12-18 09:37 | disposition home or self-care (01) ==
PROVIDERS: Emergency Provider Student in an Organized Health Care Education/Training Program; PCP Internal Medicine
DX: T83.091A Other mechanical complication of indwelling urethral catheter, initial encounter
CPT/HCPCS: 51702; 87077; 99283; 81003; 81015; 87086; 87186

== ENCOUNTER 2022-12-18 23:04 | Emergency (ER) | payer MEDICARE, SELFPAY ==
--- NOTE | 2022-12-18 23:00 | DI.CT_ITS ---
Exam(s) CT ABDOMEN PELVIS WO EXAM: CT ABDOMEN PELVIS WO CLINICAL HISTORY: repeated elkins blockage, concern for bladder mass. TECHNIQUE: Imaging Protocol: Axial computed tomography images with coronal and sagittal reformatted images were created and reviewed. COMPARISON: CT CT ABDOMEN PELVIS W from 12/25/[address] ABDOMEN PELVIS WO from 07/23/2022 FINDINGS: ABDOMEN: Lung Bases: Cardiomegaly. Hiatal hernia. Small right pleural effusion. Liver: Normal density. There is a stable hepatic cyst. The liver has a lobulated contour suggesting hepatic cirrhosis. Gallbladder and biliary tract: Cholelithiasis. Pancreas: Pancreatic atrophy. Spleen: Splenomegaly. Kidneys: Normal size, contour and axis.No radiodense stones or obstructive uropathy. No masses seen. Adrenal glands: No mass is seen. Lymph nodes: Within normal limits. Abdominal Aorta: Abdominal portion non-dilated. Atherosclerosis. PELVIS: Bladder:The urinary bladder is nondistended. There is a Elkins catheter in place. Air is seen within the urinary bladder likely reflecting recent catheterization. Bowel: There is diverticulosis of the colon, but no evidence of acute diverticulitis. There is no ev idence of bowel obstruction or inflammation. Appendix is unremarkable. Peritoneal cavity: There is a large amount of abdominal pelvic ascites. No free air. Reproductive organs: Unremarkable as visualized. Bones: Within normal limits. Sclerotic foci are again seen in the pelvis. Soft Tissues: There is a fluid containing moderate-sized left inguinal hernia. IMPRESSION: 1. Elkins catheter in place. No discrete bladder mass is seen however the bladder is nondistended paredes iting evaluation. 2. Small right pleural effusion and large amount of abdominal ascites. 3. Stable chronic findings in the abdomen and pelvis as described above. RADIATION DOSE DELIVERED: 789.91mGy.cm Total DLP DATA REPOSITORY: All CT scans at this facility are submitted to the National Radiology Data Registry (NRDR) Dose Index Registry (DIR) with the [employer] (ACR). RADIATION OPTIMIZATION: All CT scans at this facility use at least one of these dose optimization te chniques: automated exposure control; mA and/or kV adjustment per patient size (includes targeted exa ms where dose is matched to clinical indication); or iterative reconstruction.
[2022-12-18 23:07] VITALS: BP 126/77; PULSE 85; RESP 16; TEMP 36.4; O2SAT 97
--- NOTE | 2022-12-18 23:15 | W.ED.GENAD ---
Discharge Plan Disposition Patient Disposition: Home Condition: Good Discharge Details Clinical Impression: Bladder spasm Primary Care Provider: Rudolph Ryan ED Provider: Luis Quigley Home Meds and New Rx's Prescriptions: New carisoprodol [Soma] 250 mg tablet 250 mg PO QHS PRNQty: 7 0RF No Action acetaminophen [Tylenol] 325 mg capsule 325 mg PO DAILY PRN PRN Rx Instructions: for pain amiodarone 200 mg tablet 200 mg PO DAILY ferrous gluconate [Ferate] 240 mg (27 mg iron) tablet 240 mg PO BID aspirin [Aspir-81] 81 MG tablet,delayed release (DR/EC) 81 mg PO .QOD Patient Comments: 06/14/17 pt last day taking this is 06/17/17 pt aware, DCW losartan 50 MG tablet 50 mg PO DAILY tamsulosin 0.4 mg capsule 0.8 mg PO HS atorvastatin 40 mg tablet 40 mg PO DAILY Patient Comments: TAKE ONE TABLET BY MOUTH DAILY furosemide 40 mg tablet 40 mg PO BID multivitamin Tablet 1 tab PO DAILY ascorbic acid (vitamin C) [Vitamin C] 500 mg Tablet 500 mg PO DAILY dexlansoprazole 60 mg Capsule,Biphase Delayed Releas 60 mg PO DAILY lactulose 20 gram/30 mL Solution 20 g PO DAILY Discharge Instructions Additional Instructions: At this time you are having bladder spasms which is causing the leaking around your Lazo catheter. You have been given a tablet of Soma, which will help with this. However it can also cause significant fatigue, tiredness and potentially confusion and weakness. Please only take this medication at night before bed to prevent any falling or trauma potential. Please follow-up closely with your urologist Dr. Lazcano. If you notice any worsening of your symptoms, or any new symptoms such as vomiting, diarrhea, fever, chills, shortness of breath, chest pain, numbness, weakness, or fainting , please return immediately to the emergency department for reevaluation. Please follow up with your primary care provider as soon as possible for reassessment and reevaluation. As always, it was a pleasure participating in your medical care today. Referrals: Gasper Lazcano MD [ [facility] STAFF PHYSICIAN] - Medical Decision Making 82-year-old male who is DNR/DNI with a history of paroxysmal atrial fibrillation on a daily aspirin and amiodarone, cirrrhosis with ascites, prostate cancer, chronic kidney disease, NSTEMI, BPH with chronic urinary retention and chronic indwelling Lazo?presents today for catheter complication. Patient was actually here last night, he had a catheter that been in for quite some time and was scheduled to be changed in the next few days. He noticed that it became obstructed, the old catheter was removed and there was a notable amount of gunk noted at the tip of it causing it to be clogged. A new catheter was placed, and the patient had resolution of his symptoms and good drainage into his bag. He continued throughout the day with no difficulty or complication, and then this afternoon/early this evening he noticed that he stopped having urine output. He again developed suprapubic cramps and pressure. He also noticed leaking around his penis. He came to the ER for further evaluation. He denies any fever or chills. He denies any vomiting or diarrhea. No other complaints at this time. No other modifying factors. Exam demonstrates minimal urine discharge around the urethral meatus. Lazo catheter bag has about 250 cc in it. No blood or discharge. Mild pressure in the suprapubic area. Baseline ascites is still present. There may be exudate/junk that is clogging the Lazo catheter, however I do worry with this recurrence that perhaps it is the patient's enlarged prostate that is causing the problem. We will get a baseline CT scan to evaluate for new mass. We will try to flush the Lazo catheter, will monitor closely and reassess. 12:12 AM Lazo catheter was flushed, no discharge. All flushed saline came out without any difficulty whatsoever. CT scan shows a deflated bladder with Lazo catheter in place. No current urine. I suspect now that the patient is having bladder spasms which is causing the leaking and that there is actually not an obstruction. Patient otherwise feels well. We will give 1 tablet of Soma for tonight, and a small prescription for home use. I discussed with both the patient and his the importance of being cautious while taking the Soma as it can make him sleepy or weak. Patient and family understand. Recommend close follow-up with Dr. Lazcano. I have extensively reviewed the treatment plan and discharge instructions with the patient and their family. I have addressed all patient concerns at this time. The patient and family was made aware of what symptoms to monitor for that would warrant a return to the emergency department. Discussed the plan with the patient and family, they demonstrate verbal understanding and agreement with our assessment and plan at this time. The documentation in this chart was dictated using [employer] dictation software. Please excuse any dictation errors. FINDINGS: Tubes, catheters and devices: Lazo catheter noted. Pleural spaces: Small right pleural effusion. Heart: Heart is moderately enlarged. Prominent size of the IVC and hepatic veins compatible right heart failure producing passive congestion of the liver Diaphragm: Small hiatal hernia. Liver: Stable 3 cm hypodense lesion in the left lobe of the liver compatible with cyst. Gallbladder and bile ducts: Numerous moderate-sized calcified gallstones noted within a contracted gallbladder. Pancreas: Normal. No ductal dilation. Spleen: Normal. No splenomegaly. Adrenal glands: Normal. No mass. Kidneys and ureters: Normal. No hydronephrosis. Stomach and bowel: Unremarkable. No obstruction. No mucosal thickening. Appendix: No evidence of appendicitis. Intraperitoneal space: Moderate amount of ascites noted throughout the abdomen and pelvis. No free air. Vasculature: Moderate atherosclerotic calcification noted throughout the aorta and its branches. No evidence of aortic aneurysm. Lymph nodes: Unremarkable. No enlarged lymph nodes. Urinary bladder: Nondistended therefore poorly evaluated. No discrete mass lesion Reproductive: Unremarkable as visualized. Bones/joints: There is moderate lumbar scoliosis and multilevel degenerative disc disease. No vertebral body compression or acute fracture. Soft tissues: Moderate-sized left inguinal hernia contains fluid. IMPRESSION: 1. Lazo catheter in place. No discrete bladder mass visualized. The urinary bladder is nondistended and therefore poorly evaluated 2. Stable chronic appearing findings including cardiomegaly, cholelithiasis, ascites and small right pleural effusion as well as chronic osseous and atherosclerotic changes Thank you for allowing us to participate in the care of your patient. Dictated and Authenticated by: Janak Mcgowan MD 12/19/2022 12:22 AM Eastern Time ([place] & [place]) HPI General Date/Time Provider Initiated Documentation: 12/18/22 23:14. HPI Narrative: 82-year-old male who is DNR/DNI with a history of paroxysmal atrial fibrillation on a daily aspirin and amiodarone, cirrrhosis with ascites, prostate cancer, chronic kidney disease, NSTEMI, BPH with chronic urinary retention and chronic indwelling Lazo?presents today for catheter complication. Patient was actually here last night, he had a catheter that been in for quite some time and was scheduled to be changed in the next few days. He noticed that it became obstructed, the old catheter was removed and there was a notable amount of gunk noted at the tip of it causing it to be clogged. A new catheter was placed, and the patient had resolution of his symptoms and good drainage into his bag. He continued throughout the day with no difficulty or complication, and then this afternoon/early this evening he noticed that he stopped having urine output. He again developed suprapubic cramps and pressure. He also noticed leaking around his penis. He came to the ER for further evaluation. He denies any fever or chills. He denies any vomiting or diarrhea. No other complaints at this time. No other modifying factors. Related Data Home Medications Medication Instructions Recorded Confirmed aspirin 81 mg tablet,delayed 81 mg PO .QOD 12/18/15 12/18/22 release (Aspir-) losartan 50 mg tablet 50 mg PO DAILY 06/12/16 12/18/22 tamsulosin 0.4 mg capsule 0.8 mg PO HS 09/25/20 12/18/22 acetaminophen 325 mg capsule 325 mg PO DAILY PRN PRN 07/10/21 12/18/22 (Tylenol) amiodarone 200 mg tablet 200 mg PO DAILY 07/10/21 12/18/22 ferrous gluconate 240 mg (27 mg 240 mg PO BID 07/27/22 12/18/22 iron) tablet (Ferate) atorvastatin 40 mg tablet 40 mg PO DAILY 08/17/22 12/18/22 furosemide 40 mg tablet 40 mg PO BID 08/17/22 12/18/22 ascorbic acid (vitamin C) 500 mg 500 mg PO DAILY 08/31/22 12/18/22 tablet (Vitamin C) dexlansoprazole 60 mg 60 mg PO DAILY 08/31/22 12/18/22 capsule,biphase delayed release lactulose 20 gram/30 mL oral 20 g PO DAILY 08/31/22 12/18/22 solution multivitamin 1 tab PO DAILY 08/31/22 12/18/22 carisoprodol 250 mg tablet (Soma) 250 mg PO QHS PRN #7 tabs 12/18/22 Previous Rx's Medication Instructions Recorded carisoprodol 250 mg tablet (Soma) 250 mg PO QHS PRN #7 tabs 12/18/22 Allergies Allergy/AdvReac Type Severity Reaction Status Date / Time lisinopril AdvReac Intermediate cough Verified 12/18/22 05:56 spironolactone AdvReac Hyperkalemi Verified 12/18/22 05:56 a General Stated Complaint: Urinary EUSEBIO: 3 Review of Systems All systems reviewed & are unremarkable except as noted in HPI and below PFSH All Active Problems (Updated 12/18/22 @ 23:59 by Luis Quigley DO) Complication, blocked Lazo catheter (Acute) Bladder spasm (Acute) Cirrhosis (Chronic) Paroxysmal atrial fibrillation (Chronic) Incarcerated right inguinal hernia (Acute) Tricuspid regurgitation (Acute) BPH (benign prostatic hyperplasia) (Chronic) Acute urinary retention (Acute) Prostate cancer (Chronic) Bone metastasis (Acute) Ventricular tachycardia (Chronic) Coronary artery disease (Chronic) NSTEMI (non-ST elevated myocardial infarction) (Acute) Anemia (Chronic) Thrombocytopenia (Chronic) Ventricular tachycardia (Chronic) Cardiomyopathy (Acute) Abdominal distention (Acute) Screening for colon cancer (Acute) Fatigue (Acute) DNR (do not resuscitate) (Acute) COVID-19 (Acute) Ascites (Chronic) Medical History A-fib Anemia Anticoagulation adequate Ascites Bladder outlet obstruction Cardiorenal syndrome Cholelithiasis Chronic kidney disease Congestive heart failure Cor pulmonale Corns and callus GERD (gastroesophageal reflux disease) Gross hematuria History of alcohol abuse Hx of congestive heart failure Hx of myocardial infarction 2007 Hyperlipidemia Inguinal hernia Inguinal hernia, recurrent Iron deficiency anemia Jaundice Lateral femoral cutaneous entrapment syndrome Leg cramps Myocardial infarct Nail disorder Nocturnal leg cramps Overweight Pain, joint, knee, left Rectal bleeding Thrombocytopenia Surgical History Hx of CABG Hx of cataract surgery Hx of colonoscopy Hx of cystoscopy Hx of inguinal hernia surgery S/P CABG (coronary artery bypass graft) 2009 Social History Smoking/Tobacco Use Status: Former Tobacco Use Quit Date: 07/12/89 Tobacco: How many years used: 15 Smoking risk assessment performed?: Yes Alcohol Intake: former Drug use: Never Substance use type: does not use Do you feel safe at home: Yes Do you feel safe in your relationship?: Yes Additional Social history: unable assess privately-10/22/22 mkb Exam Narrative Exam Narrative: 1.Const: Well-nourished, Well-developed, appearing stated age 2.Eyes: PERRL, no conjunctival injection, and symmetrical lids. 3.ENT: Atraumatic external nose and ears. Moist MM. Neck: Symmetric, trachea midline, No thyromegaly. 4.CVS: +S1/S2, No murmurs or gallops. Peripheral pulses 2+ and equal in all extremities. Brisk capillary refill in all extremities. 5.RESP: Unlabored respiratory effort. Clear to auscultation bilaterally. No wheezes rales or rhonchi 6.GI: Mild ascites. , Nontender/Nondistended, No hepatosplenomegaly. No guarding or rebound. Genital exam demonstrates a small amount of urine leaking around the urethral meatus. Nontender penis. Nontender scrotum. Mild pressure in the suprapubic area. There is about 250 cc of urine in the Lazo catheter bag. No blood or discharge otherwise. 7.MSK: Normocephalic/Atraumatic, Extremities w/o deformity or ttp No cyanosis or clubbing, Normal movement of all extremities 8.Skin: Warm, Dry. No rashes or lesions. 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 Sensation grossly intact, no focal neurologic deficits. 10.Psych: (AAO) x3. Appropriate mood and affect Course Vital Signs Vital signs: Vital Signs Temperature 36.4 C 12/18/22 23:07 Pulse 85 12/18/22 23:07 Respiratory Rate 16 12/18/22 23:07 Blood Pressure 126/77 12/18/22 23:07 Pulse Oximetry 97 12/18/22 23:07 Temperature 36.4 C 12/18/22 23:07 Temperature Source Temporal Artery Scan 12/18/22 23:07 Pulse 85 12/18/22 23:07 Respiratory Rate 16 12/18/22 23:07 Blood Pressure 126/77 12/18/22 23:07 Blood Pressure Position Sitting 12/18/22 23:07 Pulse Oximetry 97 12/18/22 23:07 Oxygen Delivery Method Room Air 12/18/22 23:07 Oxygen Flow Rate 0 12/18/22 23:07 Pain Level 8 12/18/22 23:07 Comment pressure comes and goes 12/18/22 23:07
--- NOTE | 2022-12-18 23:27 | NUR.NOTE ---
Nursing Note: Lazo intact, no leakage noted around meatus and tubing intact. irrigated with piston syringe, pulling back slowly all volume removed, pt has no pain or pressure during irrigation, urine slightly pink in color. pt brief soaked in urine. tubing was kinked in the pts brief. no leaking during procedure. pt to go to CT
--- NOTE | 2022-12-19 00:23 | DI.VRAD_ITS ---
PROCEDURE INFORMATION: Exam: CT Abdomen And Pelvis Without Contrast Exam date and time: 12/18/2022 11:35 PM Age: 82 years old Clinical indication: Other: Repeated elkins blockage, concern for bladder mass TECHNIQUE: Imaging protocol: Computed tomography of the abdomen and pelvis without contrast. Radiation optimization: All CT scans at this facility use at least one of these dose optimization techniques: automated exposure control; mA and/or kV adjustment per patient size (includes targeted exams where dose is matched to clinical indication); or iterative reconstruction. COMPARISON: CT ABDOMEN PELVIS WO 07/23/2022 8:59 AM FINDINGS: Tubes, catheters and devices: Elkins catheter noted. Pleural spaces: Small right pleural effusion. Heart: Heart is moderately enlarged. Prominent size of the IVC and hepatic veins compatible right heart failure producing passive congestion of the liver Diaphragm: Small hiatal hernia. Liver: Stable 3 cm hypodense lesion in the left lobe of the liver compatible with cyst. Gallbladder and bile ducts: Numerous moderate-sized calcified gallstones noted within a contracted gallbladder. Pancreas: Normal. No ductal dilation. Spleen: Normal. No splenomegaly. Adrenal glands: Normal. No mass. Kidneys and ureters: Normal. No hydronephrosis. Stomach and bowel: Unremarkable. No obstruction. No mucosal thickening. Appendix: No evidence of appendicitis. Intraperitoneal space: Moderate amount of ascites noted throughout the abdomen and pelvis. No free air. Vasculature: Moderate atherosclerotic calcification noted throughout the aorta and its branches. No evidence of aortic aneurysm. Lymph nodes: Unremarkable. No enlarged lymph nodes. Urinary bladder: Nondistended therefore poorly evaluated. No discrete mass lesion Reproductive: Unremarkable as visualized. Bones/joints: There is moderate lumbar scoliosis and multilevel degenerative disc disease. No vertebral body compression or acute fracture. Soft tissues: Moderate-sized left inguinal hernia contains fluid. IMPRESSION: 1. Elkins catheter in place. No discrete bladder mass visualized. The urinary bladder is nondistended and therefore poorly evaluated 2. Stable chronic appearing findings including cardiomegaly, cholelithiasis, ascites and small right pleural effusion as well as chronic osseous and atherosclerotic changes Dictated and Authenticated by: Janak Mcgowan MD. Ordering:KASSIDY Smith MD
== END 2022-12-19 00:34 | disposition home or self-care (01) ==
PROVIDERS: Emergency Provider Student in an Organized Health Care Education/Training Program; PCP Internal Medicine
DX: T83.038A Leakage of other urinary catheter, initial encounter (principal); N32.89 Other specified disorders of bladder
CPT/HCPCS: 51702; 87077; 99283; 99284; 74176; 81003; 81015; 87086; 87186

== ENCOUNTER → 2022-12-21 13:22 | Outpatient (BNVA) | payer MEDICARE, SELFPAY | PROVIDERS: PCP Internal Medicine; Visit Provider Nurse Practitioner Gerontology | DX: C79.51 Secondary malignant neoplasm of bone (principal); R97.20 Elevated prostate specific antigen [PSA]; C61 Malignant neoplasm of prostate | CPT/HCPCS: 96402; J9217 ==

== ENCOUNTER 2022-12-25 10:17 | Day surgery (SDC) | payer MEDICARE, SELFPAY ==
[2022-12-25 10:42] VITALS: BP 117/69; PULSE 76; RESP 18; TEMP 36.6; O2SAT 98
[2022-12-25] MEDS: Lactated Ringers 1,000 ML 30 ML IV (11:55)
--- NOTE | 2022-12-25 12:58 | OPPNE_ITS ---
Date of service: 12/25/22 Time of Service: 12:58 Procedure Note Date of procedure: 12/25/22 Procedure: Therapeutic paracentesis Surgeon/Proceduralist/Physician: Hector Gay Procedure Diagnosis: Tense ascites Procedure Indications: Gasper is a 82-year-old male with end-stage liver disease and tense ascites requiring intermittent palliative paracentesis. Procedure Description: I started by performing a limited ultrasound of the abdomen to identify appropriate site for paracentesis. Next, I selected the left lower quadrant as the ideal site for paracentesis. I then prepped and draped the abdomen. Next, using ultrasound guidance, I anesthetized the skin with 1% lidocaine with epinephrine. I used the ultrasound to guide the needle down to the peritoneal level which was also anesthetized. I then made a small incision in the skin with a 11 blade scalpel. Next, I advanced the 5 Pakistani paracentesis needle and catheter through the incision and into the peritoneal cavity under the direct vision of the ultrasound. I aspirated dark ascites. Next, I gently advance the catheter and remove the needle. I affixed drainage tubing, and began draining the ascites with the assistance of Vacutainer's. I drained 3600 mL of ascites. As the flow decreased, I assisted the patient to the left lateral decubitus position and switched to hand pumping to improve drainage. Once the ascites stopped flowing, I removed the catheter and used gauze and tape to dress the wound. In total, 5200 mL of ascites was drained.
[2022-12-25 12:59] VITALS: BP 112/62; PULSE 66; RESP 18; TEMP 36.4; O2SAT 97
[2022-12-25] MEDS: ALBUMIN HUMAN 25 GM/100 ML BTL IVPB (13:21)
== END 2022-12-25 14:10 | disposition home or self-care (01) ==
PROVIDERS: PCP Internal Medicine; Visit Provider Surgery
PROC: 0W9G3ZZ Drainage of Peritoneal Cavity, Percutaneous Approach (ICD-10-PCS; CPT 49082; principal; 2022-12-25 11:00)
DX: R18.8 Other ascites (principal)
CPT/HCPCS: 49083; 96365

== ENCOUNTER 2023-01-11 14:00 | Outpatient (CLI) | payer MEDICARE, SELFPAY ==
[2023-01-11 14:01] LABS: Abs Immature Grans 0.01 10^3/uL (0.0-0.06); Absolute Basophil Count 0.02 10^3/uL (0.0-0.2); Absolute Eosinophil Count 0.03 10^3/uL (0.0-0.7); Absolute Lymphocyte Count 0.18 10^3/uL (1.2-3.4); Absolute Monocyte Count 0.31 10^3/uL (0.1-0.8); Absolute Neutrophil Count 2.16 10^3/uL (1.2-6.7); Basophils % 0.7; Eosinophils % 1.1; HGB 9.5 g/dL (13.5-17.5); Immature Grans % 0.4; Lymphocytes % 6.6; MCH 30.4 pg (27.0-33.0); MCHC 32.8 % (32.0-36.0); MCV 93 fL (80-95); MPV 12.1 fL (8.0-11.0); Monocytes % 11.4; Neutrophils % 79.8; RBC 3.13 10^6/uL (4.36-5.78); RDW 15.7 % (11.8-14.1); RDW-SD 53.2 fL; WBC 2.71 10^3/uL (4.4-10.8)
[2023-01-11 14:32] LABS: ALT 29 U/L (16-63); AST 33 U/L (15-37); Albumin 3.6 g/dL (3.4-5.0); Alkaline Phosphatase 197 U/L (46-116); BUN 39 mg/dL (7-18); Calcium 8.5 mg/dL (8.5-10.1); Chloride 103 mmol/L (98-107); Estimated GFR 32.51 (mL/min/1.73m2); Glucose 109 mg/dL (74-106); Potassium 4.5 mmol/L (3.5-5.1); Sodium 139 mmol/L (136-145); Total Protein 6.5 g/dL (6.4-8.2)
[2023-01-11 14:35] LABS: Platelet Count 75 10^3/uL (130-400)
[2023-01-11 14:36] LABS: Diff Comment PLT Morph Reviewed
[2023-01-11 14:42] LABS: Poikilocytes 1+
[2023-01-15 11:38] LABS: PSA, Ultrasensitive 0.12 ng/mL (<= 7.2)
[2023-01-16 14:15] LABS: Testosterone, Total <7.0 ng/dL (240-950)
== END 2023-01-11 14:01 | disposition home or self-care (01) ==
LOC: LBO 14:01
PROVIDERS: PCP Internal Medicine; Visit Provider Nurse Practitioner Adult Health
DX: C79.51 Secondary malignant neoplasm of bone (principal); C61 Malignant neoplasm of prostate; D61.818 Other pancytopenia
CPT/HCPCS: 36415; 80053; 84153; 84403; 85025

== ENCOUNTER → 2023-01-21 14:21 | Outpatient (BNVA) | payer MEDICARE, SELFPAY | PROVIDERS: PCP Internal Medicine; Visit Provider Nurse Practitioner Gerontology | DX: C79.51 Secondary malignant neoplasm of bone (principal); Z46.6 Encounter for fitting and adjustment of urinary device; C61 Malignant neoplasm of prostate | CPT/HCPCS: 51702; 96402; J9217 ==

== ENCOUNTER → 2023-02-19 09:10 | Outpatient (BNVA) | payer MEDICARE, SELFPAY | PROVIDERS: PCP Internal Medicine; Referring Provider Internal Medicine; Visit Provider Surgery | DX: Z48.817 Encounter for surgical aftercare following surgery on the skin and subcutaneous tissue (principal) | CPT/HCPCS: 49082; 99212 ==

== ENCOUNTER 2023-02-20 05:15 | Emergency (ER) | payer MEDICARE, SELFPAY ==
[2023-02-20 05:22] VITALS: BP 119/49; PULSE 83; RESP 16; TEMP 36.4; O2SAT 97
--- NOTE | 2023-02-20 05:26 | ED.GENADUL_ITS ---
Discharge Plan Disposition Patient Disposition: Home Condition: Good Discharge Details Clinical Impression: Urinary retention, Complication, blocked Elkins catheter Primary Care Provider: Rudolph Ryan ED Provider: Lorrie Mcclelland Home Meds and New Rx's Prescriptions: Continued acetaminophen [Tylenol] 325 mg capsule 325 mg PO DAILY PRN PRN Rx Instructions: for pain amiodarone 200 mg tablet 200 mg PO DAILY ferrous gluconate [Ferate] 240 mg (27 mg iron) tablet 240 mg PO BID aspirin [Aspir-81] 81 MG tablet,delayed release (DR/EC) 81 mg PO .QOD Patient Comments: 06/14/17 pt last day taking this is 06/17/17 pt aware, DCW losartan 50 MG tablet 50 mg PO DAILY tamsulosin 0.4 mg capsule 0.8 mg PO HS atorvastatin 40 mg tablet 40 mg PO DAILY Patient Comments: TAKE ONE TABLET BY MOUTH DAILY furosemide 40 mg tablet 40 mg PO BID multivitamin Tablet 1 tab PO DAILY ascorbic acid (vitamin C) [Vitamin C] 500 mg Tablet 500 mg PO DAILY dexlansoprazole 60 mg Capsule,Biphase Delayed Releas 60 mg PO DAILY lactulose 20 gram/30 mL Solution 20 g PO DAILY Discharge Instructions Instructions: Urinary Retention in Men (ED) Additional Instructions: Watch your urine output today; return to the emergency department if your catheter is not working and you are unable to flush it. Return to the emergency department for new or worsening symptoms including fever, flank pain, abdominal pain, or if you have any other concerns. Referrals: Rudolph Ryan [Primary Care Provider] - Medical Decision Making 82yo M with chronic indwelling elkins 2/t prostate cancer presenting with no drainage from catheter and sense of bladder fullness. at bedside attempted to flush catheter without success. Denies s/s UTI, no other concerns. Vital signs reassuring, lower abdominal fullness on exam with no pain. Bladder scan shows ~1L. Catheter removed and new elkins placed; patient reports immediate relief. ~700cc clear yellow urine in elkins, no clots. Advised to monitor for recurrent symptoms/obstruction and discharged home. Discharged home; discharge instructions including return precautions were reviewed with patient who verbalized understanding. All questions were answered and they are in full agreement with the plan. HPI General Mode of arrival: ambulatory . Date/Time Provider Initiated Documentation: 02/20/23 05:25 . Limitations to Documentation: no limitations . Information obtained by: patient and family . HPI Narrative: 82yo M with chronic indwelling elkins 2/t prostate cancer presenting with no drainage from catheter and sense of bladder fullness. Started overnight. at bedside attempted to flush catheter without success. Due for catheter replacement next week. He is otherwise in his usual state of health with no fevers, chills, rash, abdominal pain, dysuria, hematuria, flank pain, or other concerns. Related Data Home Medications Medication Instructions Recorded Confirmed aspirin 81 mg tablet,delayed 81 mg PO .QOD 12/18/15 02/20/23 release (Aspir-) losartan 50 mg tablet 50 mg PO DAILY 06/12/16 02/20/23 tamsulosin 0.4 mg capsule 0.8 mg PO HS 09/25/20 02/20/23 acetaminophen 325 mg capsule 325 mg PO DAILY PRN PRN 07/10/21 02/20/23 (Tylenol) amiodarone 200 mg tablet 200 mg PO DAILY 07/10/21 02/20/23 ferrous gluconate 240 mg (27 mg 240 mg PO BID 07/27/22 02/20/23 iron) tablet (Ferate) atorvastatin 40 mg tablet 40 mg PO DAILY 08/17/22 02/20/23 furosemide 40 mg tablet 40 mg PO BID 08/17/22 02/20/23 ascorbic acid (vitamin C) 500 mg 500 mg PO DAILY 08/31/22 02/20/23 tablet (Vitamin C) dexlansoprazole 60 mg 60 mg PO DAILY 08/31/22 02/20/23 capsule,biphase delayed release lactulose 20 gram/30 mL oral 20 g PO DAILY 08/31/22 02/20/23 solution multivitamin 1 tab PO DAILY 08/31/22 02/20/23 Allergies Allergy/AdvReac Type Severity Reaction Status Date / Time lisinopril AdvReac Intermediate cough Verified 12/25/22 10:42 spironolactone AdvReac Hyperkalemi Verified 12/25/22 10:42 a General Stated Complaint: Urinary EUSEBIO: 3 Review of Systems Narrative: see HPI PFSH All Active Problems (Updated 02/20/23 @ 05:46 by Lorrie Mcclelland MD) Urinary retention (Acute) Complication, blocked Elkins catheter (Acute) Cirrhosis (Chronic) Paroxysmal atrial fibrillation (Chronic) Incarcerated right inguinal hernia (Acute) Tricuspid regurgitation (Acute) BPH (benign prostatic hyperplasia) (Chronic) Acute urinary retention (Acute) Prostate cancer (Chronic) Bone metastasis (Acute) Ventricular tachycardia (Chronic) Coronary artery disease (Chronic) NSTEMI (non-ST elevated myocardial infarction) (Acute) Anemia (Chronic) Thrombocytopenia (Chronic) Ventricular tachycardia (Chronic) Cardiomyopathy (Acute) Abdominal distention (Acute) Screening for colon cancer (Acute) Fatigue (Acute) DNR (do not resuscitate) (Acute) COVID-19 (Acute) Ascites (Chronic) Medical History A-fib Anemia Anticoagulation adequate Ascites Bladder outlet obstruction Cardiorenal syndrome Cholelithiasis Chronic kidney disease Congestive heart failure Cor pulmonale Corns and callus GERD (gastroesophageal reflux disease) Gross hematuria History of alcohol abuse Hx of congestive heart failure Hx of myocardial infarction 2007 Hyperlipidemia Inguinal hernia Inguinal hernia, recurrent Iron deficiency anemia Jaundice Lateral femoral cutaneous entrapment syndrome Leg cramps Myocardial infarct Nail disorder Nocturnal leg cramps Overweight Pain, joint, knee, left Rectal bleeding Thrombocytopenia Surgical History Hx of CABG Hx of cataract surgery Hx of colonoscopy Hx of cystoscopy Hx of inguinal hernia surgery S/P CABG (coronary artery bypass graft) 2009 Social History Smoking/Tobacco Use Status: Former Tobacco Use Quit Date: 07/12/89 Tobacco: How many years used: 15 Smoking risk assessment performed?: Yes Alcohol Intake: former Drug use: Never Substance use type: does not use Do you feel safe at home: Yes Do you feel safe in your relationship?: Yes Additional Social history: 12/25/22: Unable assess privately. BR Exam Narrative Exam Narrative: General: Alert, well appearing, well nourished, in no acute distress. Head: Normocephalic, atraumatic Neck: Trachea midline, Neck supple. Cardiac: RRR, no murmurs appreciated Resp: No respiratory distress. CTAB. Abd: Soft, nontender : No suprapubic tenderness. No CVA tenderness. Extremities: No deformities. No peripheral edema. Neurologic: GCS 15. Moves all extremities freely against gravity
[2023-02-20] MEDS: Lidocaine 2% Jelly 6 ML SYR (05:30)
[2023-02-20 06:12] VITALS: BP 116/46; PULSE 82; RESP 16; TEMP 36.4; O2SAT 99
== END 2023-02-20 06:13 | disposition home or self-care (01) ==
PROVIDERS: Emergency Provider Student in an Organized Health Care Education/Training Program; PCP Internal Medicine
DX: T83.091A Other mechanical complication of indwelling urethral catheter, initial encounter (principal); R33.9 Retention of urine, unspecified
CPT/HCPCS: 51702; 99283

== ENCOUNTER → 2023-02-22 13:53 | Outpatient (BNVA) | payer MEDICARE, SELFPAY | PROVIDERS: PCP Internal Medicine; Visit Provider Nurse Practitioner Gerontology | DX: Z96.0 Presence of urogenital implants (principal); C79.51 Secondary malignant neoplasm of bone; C61 Malignant neoplasm of prostate | CPT/HCPCS: 96402; J9217 ==

== ENCOUNTER → 2023-03-18 11:20 | Outpatient (BNVA) | payer MEDICARE, SELFPAY | PROVIDERS: PCP Internal Medicine; Referring Provider Internal Medicine; Visit Provider Nurse Practitioner Gerontology | DX: T83.098A Other mechanical complication of other urinary catheter, initial encounter (principal); C61 Malignant neoplasm of prostate; C79.51 Secondary malignant neoplasm of bone; R97.20 Elevated prostate specific antigen [PSA] | CPT/HCPCS: 51702 ==

== ENCOUNTER → 2023-03-25 14:25 | Outpatient (BNVA) | payer MEDICARE, SELFPAY | PROVIDERS: PCP Internal Medicine; Visit Provider Nurse Practitioner Gerontology | DX: C79.51 Secondary malignant neoplasm of bone (principal); R97.20 Elevated prostate specific antigen [PSA]; C61 Malignant neoplasm of prostate | CPT/HCPCS: 96402; J9217 ==

== ENCOUNTER 2023-04-05 12:34 | Outpatient (CLI) | payer MEDICARE, SELFPAY ==
[2023-04-05 11:34] LABS: Abs Immature Grans 0.01 10^3/uL (0.0-0.06); Absolute Basophil Count 0.02 10^3/uL (0.0-0.2); Absolute Eosinophil Count 0.07 10^3/uL (0.0-0.7); Absolute Lymphocyte Count 0.18 10^3/uL (1.2-3.4); Absolute Monocyte Count 0.46 10^3/uL (0.1-0.8); Absolute Neutrophil Count 2.99 10^3/uL (1.2-6.7); Basophils % 0.5; Eosinophils % 1.9; HCT 30.6 % (40.0-50.0); HGB 9.8 g/dL (13.5-17.5); Immature Grans % 0.3; Lymphocytes % 4.8; MCH 30.2 pg (27.0-33.0); MCV 94 fL (80-95); MPV 11.8 fL (8.0-11.0); Monocytes % 12.3; Neutrophils % 80.2; RBC 3.25 10^6/uL (4.36-5.78); RDW 15.7 % (11.8-14.1); RDW-SD 54.1 fL; WBC 3.73 10^3/uL (4.4-10.8)
[2023-04-05 11:55] LABS: Diff Comment Diff Reviewed; Platelet Count 83 10^3/uL (130-400); RBC Morphology Normal
[2023-04-05 12:59] LABS: ALT 23 U/L (16-63); AST 32 U/L (15-37); Albumin 3.7 g/dL (3.4-5.0); Alkaline Phosphatase 169 U/L (46-116); Anion Gap 8.3 mmol/L (3-11); BUN 33 mg/dL (7-18); CO2 28.7 mmol/L (21.0-32.0); CREATININE 1.7 mg/dL (0.70-1.30); Calcium 8.9 mg/dL (8.5-10.1); Chloride 102 mmol/L (98-107); Estimated GFR 39.51 (mL/min/1.73m2); Glucose 105 mg/dL (74-106); Potassium 4.3 mmol/L (3.5-5.1); Sodium 139 mmol/L (136-145); Total Protein 6.8 g/dL (6.4-8.2)
[2023-04-08 18:37] LABS: Testosterone, Total <7.0 ng/dL (240-950)
== END 2023-04-05 12:35 | disposition home or self-care (01) ==
LOC: LBO 12:34
PROVIDERS: PCP Internal Medicine; Visit Provider Internal Medicine
DX: C61 Malignant neoplasm of prostate (principal); C79.51 Secondary malignant neoplasm of bone
CPT/HCPCS: 36415; 80053; 84153; 84403; 85025

== ENCOUNTER 2023-04-05 19:38 | Emergency (ER) | payer MEDICARE, SELFPAY ==
[2023-04-05 19:41] VITALS: BP 130/59; PULSE 89; RESP 18; TEMP 36.7; O2SAT 97
--- NOTE | 2023-04-05 20:01 | ED.GENADUL_ITS ---
Discharge Plan Disposition Patient Disposition: Home Condition: Improving Discharge Details Clinical Impression: Acute urinary retention Primary Care Provider: Rudolph Ryan ED Provider: Benita Sotelo Home Meds and New Rx's Prescriptions: Continued acetaminophen [Tylenol] 325 mg capsule 325 mg PO DAILY PRN PRN Rx Instructions: for pain amiodarone 200 mg tablet 200 mg PO DAILY ferrous gluconate [Ferate] 240 mg (27 mg iron) tablet 240 mg PO BID aspirin [Aspir-81] 81 MG tablet,delayed release (DR/EC) 81 mg PO .QOD Patient Comments: 06/14/17 pt last day taking this is 06/17/17 pt aware, DCW losartan 50 MG tablet 50 mg PO DAILY tamsulosin 0.4 mg capsule 0.8 mg PO HS atorvastatin 40 mg tablet 40 mg PO DAILY Patient Comments: TAKE ONE TABLET BY MOUTH DAILY furosemide 40 mg tablet 40 mg PO BID multivitamin Tablet 1 tab PO DAILY ascorbic acid (vitamin C) [Vitamin C] 500 mg Tablet 500 mg PO DAILY dexlansoprazole 60 mg Capsule,Biphase Delayed Releas 60 mg PO DAILY lactulose 20 gram/30 mL Solution 20 g PO DAILY Discharge Instructions Instructions: Urinary Retention in Men (ED) Additional Instructions: Catheter was plugged once again and this was exchanged tonight. Please continue with your typical catheter care. Please call urology tomorrow to schedule follow-up appointment and discussed the fact that this has been a recurrent issue for you. Please also consult with general surgery regarding your ascites. Please seek care urgently once again with any new or worsening symptoms. Referrals: Rudolph Ryan [Primary Care Provider] - Discharge Data Discharge Date/Time-TO BE ENTERED AT DEPARTURE: 04/05/23 21:51 Medical Decision Making Patient is pleasant 82-year-old male, accompanied by his , with chief complaint of urinary dysfunction. Patient has history of prostate cancer for which she has indwelling catheter. There has been concern that this has plugged multiple times and he states that he has not had any urinary output since this afternoon is becoming more uncomfortable and does feel the need to urinate. He was last here for this on the 12th of last month at which time a catheter was changed and he had good return of flow. Patient is followed by urology routinely. Is also followed by general surgery as he develops frequent ascites and last had this drained last month. Denies any shortness of breath. Past medical history significant for mitral valve repair, cirrhosis, paroxysmal atrial fibrillation, BPH, prostate cancer, NSTEMI, anemia, thrombocytopenia, cardiorenal syndrome, GERD. On exam, patient appears chronically ill. His abdomen is rotund and firm with concern for ascites. No shortness of breath or hypoxia. Breathing well. Patient does have over 300 cc in his bladder with ultrasound. Plan to replace the catheter. No CVA tenderness. Afebrile. Nursing staff was able to exchange the catheter and get good flow of urine. He feels improved. He will f/u with [id number] surgery regarding ascites, urology regarding recurrent catheter issues. Return precautions discussed. All of his questions and concerns were addressed, they are in agreement with this plan. HPI General Date/Time Provider Initiated Documentation: 04/05/23 19:49 . Limitations to Documentation: no limitations . Information obtained by: patient, family (), RN notes reviewed and old records reviewed . History of Present Illness 82 year old M presents to the emergency department with the chief complaint of urinary retention, described as moderate and similar to prior episodes, and is localized to the pelvis. Patient reports no radiation. Patient started experiencing this hour(s) and it has been constant. No relieving factors improve symptom(s), Other factors that worsen symptoms (has been [id number] with clogged catheter in the past) . Patient did receive the following treatments prior to arrival, none Related Data Home Medications Medication Instructions Recorded Confirmed aspirin 81 mg tablet,delayed 81 mg PO .QOD 12/18/15 04/06/23 release (Aspir-) losartan 50 mg tablet 50 mg PO DAILY 06/12/16 04/06/23 tamsulosin 0.4 mg capsule 0.8 mg PO HS 09/25/20 04/06/23 acetaminophen 325 mg capsule 325 mg PO DAILY PRN PRN 07/10/21 04/06/23 (Tylenol) amiodarone 200 mg tablet 200 mg PO DAILY 07/10/21 04/06/23 ferrous gluconate 240 mg (27 mg 240 mg PO BID 07/27/22 04/06/23 iron) tablet (Ferate) atorvastatin 40 mg tablet 40 mg PO DAILY 08/17/22 04/06/23 furosemide 40 mg tablet 40 mg PO BID 08/17/22 04/06/23 ascorbic acid (vitamin C) 500 mg 500 mg PO DAILY 08/31/22 04/06/23 tablet (Vitamin C) dexlansoprazole 60 mg 60 mg PO DAILY 08/31/22 04/06/23 capsule,biphase delayed release lactulose 20 gram/30 mL oral 20 g PO DAILY 08/31/22 04/06/23 solution multivitamin 1 tab PO DAILY 08/31/22 04/06/23 Allergies Allergy/AdvReac Type Severity Reaction Status Date / Time lisinopril AdvReac Intermediate cough Verified 04/06/23 14:33 spironolactone AdvReac Hyperkalemi Verified 04/06/23 14:33 a General Stated Complaint: Urinary EUSEBIO: 3 Review of Systems Constitutional Constitutional: Reports as per HPI, Denies chills and Denies fever(s) Cardiovascular Cardiovascular: Denies chest pain Respiratory Respiratory: Denies cough Gastrointestinal Gastrointestinal: Denies abdominal pain, Denies change in bowel habits, Denies nausea and Denies vomiting Genitourinary Genitourinary: Reports as per HPI Musculoskeletal Musculoskeletal: Reports as per HPI and Denies back pain Integumentary/Breasts Skin/Breast: Reports as per HPI and Denies rash PFSH All Active Problems (Updated 04/05/23 @ 21:44 by MARIUSZ Burgos) Cirrhosis (Chronic) Paroxysmal atrial fibrillation (Chronic) Incarcerated right inguinal hernia (Acute) Tricuspid regurgitation (Acute) BPH (benign prostatic hyperplasia) (Chronic) Acute urinary retention (Acute) Prostate cancer (Chronic) Bone metastasis (Acute) Ventricular tachycardia (Chronic) Coronary artery disease (Chronic) NSTEMI (non-ST elevated myocardial infarction) (Acute) Anemia (Chronic) Thrombocytopenia (Chronic) Ventricular tachycardia (Chronic) Cardiomyopathy (Acute) Abdominal distention (Acute) Screening for colon cancer (Acute) Fatigue (Acute) DNR (do not resuscitate) (Acute) COVID-19 (Acute) Ascites (Chronic) Medical History A-fib Anemia Anticoagulation adequate Ascites Bladder outlet obstruction Cardiorenal syndrome Cholelithiasis Chronic kidney disease Congestive heart failure Cor pulmonale Corns and callus GERD (gastroesophageal reflux disease) Gross hematuria History of alcohol abuse Hx of congestive heart failure Hx of myocardial infarction 2008 Hyperlipidemia Inguinal hernia Inguinal hernia, recurrent Iron deficiency anemia Jaundice Lateral femoral cutaneous entrapment syndrome Leg cramps Myocardial infarct Nail disorder Nocturnal leg cramps Overweight Pain, joint, knee, left Rectal bleeding Thrombocytopenia Surgical History Hx of CABG Hx of cataract surgery Hx of colonoscopy Hx of cystoscopy Hx of inguinal hernia surgery S/P CABG (coronary artery bypass graft) 2009 Social History Smoking/Tobacco Use Status: Former Tobacco Use Quit Date: 07/12/89 Tobacco: How many years used: 15 Smoking risk assessment performed?: Yes Alcohol Intake: former Drug use: Never Substance use type: does not use Do you feel safe at home: Yes Do you feel safe in your relationship?: Yes Exam Const General: cooperative, comfortable, no acute distress, well developed, well groomed and ill appearing chronically Nutritional Appearance: average body habitus and well nourished Orientation: alert and awake Resp Effort & Inspection: normal respiratory effort and no respiratory distress Auscultation: clear to auscultation bilaterally, no rales, no rhonchi and no wheezes Cardio Rate: regular rate Rhythm: regular rhythm Heart Sounds: S1 normal and S2 normal GI Inspection: distended Palpation: soft, no hepatosplenomegaly, firm, no guarding, not rigid, nontender and ascites Back/Spine/Pelvis Back: no CVA tenderness Skin General skin exam: no rashes or lesions noted Trauma: no lacerations or abrasions Neuro General: patient alert and patient awake Cognition: normal cognition Speech: speech normal Gait: normal gait Course Vital Signs Vital signs: Vital Signs Temperature 36.7 C 04/05/23 19:41 Pulse 89 04/05/23 19:41 Respiratory Rate 18 04/05/23 19:41 Blood Pressure 130/59 L 04/05/23 19:41 Pulse Oximetry 97 04/05/23 19:41 Temperature 36.7 C 04/05/23 19:41 Temperature Source Skin 04/05/23 19:41 Pulse 89 04/05/23 19:41 Respiratory Rate 18 04/05/23 19:41 Respiratory Effort Normal 04/05/23 19:47 Blood Pressure 130/59 L 04/05/23 19:41 Pulse Oximetry 97 04/05/23 19:41 Oxygen Delivery Method Room Air 04/05/23 19:41 Oxygen Flow Rate 0 04/05/23 19:41
== END 2023-04-05 21:51 | disposition home or self-care (01) ==
PROVIDERS: Emergency Provider Physician Assistant; PCP Internal Medicine
DX: T83.098A Other mechanical complication of other urinary catheter, initial encounter (principal); C61 Malignant neoplasm of prostate; I48.0 Paroxysmal atrial fibrillation; I25.2 Old myocardial infarction; Z95.1 Presence of aortocoronary bypass graft
CPT/HCPCS: 36415; 51702; 80053; 84153; 84403; 99283; 85025

== ENCOUNTER → 2023-04-06 14:26 | Outpatient (BNVA) | payer MEDICARE, SELFPAY | PROVIDERS: PCP Internal Medicine; Referring Provider Internal Medicine; Visit Provider Surgery | DX: R18.8 Other ascites (principal); K74.60 Unspecified cirrhosis of liver | CPT/HCPCS: 49082; 99212 ==

== ENCOUNTER → 2023-04-26 13:24 | Outpatient (BNVA) | payer MEDICARE, SELFPAY | PROVIDERS: PCP Internal Medicine; Visit Provider Nurse Practitioner Gerontology | DX: C79.51 Secondary malignant neoplasm of bone (principal); R97.20 Elevated prostate specific antigen [PSA]; C61 Malignant neoplasm of prostate | CPT/HCPCS: 51702; 96402; J9217 ==

== ENCOUNTER → 2023-04-27 10:32 | Outpatient (BNVA) | payer MEDICARE, SELFPAY | PROVIDERS: PCP Internal Medicine; Visit Provider Internal Medicine Cardiovascular Disease | DX: I25.810 Atherosclerosis of coronary artery bypass graft(s) without angina pectoris (principal); I25.2 Old myocardial infarction; I25.5 Ischemic cardiomyopathy; I42.9 Cardiomyopathy, unspecified; I07.1 Rheumatic tricuspid insufficiency; I48.0 Paroxysmal atrial fibrillation; Z98.890 Other specified postprocedural states | CPT/HCPCS: 99214 ==

== ENCOUNTER → 2023-05-12 11:08 | Outpatient (BNVA) | payer MEDICARE, SELFPAY | PROVIDERS: PCP Internal Medicine; Referring Provider Internal Medicine; Visit Provider Nurse Practitioner Gerontology ==

== ENCOUNTER → 2023-05-12 13:18 | Outpatient (CLI) | payer MEDICARE, SELFPAY ==
--- NOTE | 2023-05-12 11:45 | DI.US_ITS ---
Exam(s) US ABDOMEN RENAL EXAM: US ABDOMEN RENAL CLINICAL HISTORY: Abdominal pain distention unclear etiology, ascites, R10.9, R33.8, R18.8 TECHNIQUE: Ultrasound abdomen performed using standard protocol. COMPARISON: CT CT ABDOMEN PELVIS WO from 12/18/2022 FINDINGS: LIVER: Normal size and echogenicity. Mildly nodular contour or consistent with cirrhosis. Cyst in l eft lobe again noted. Dilated IVC and hepatic veins the likely cardiac cause. No focal liver lesion s are seen. GALLBLADDER: cholelithiasis. No evidence of wall thickening. HOFFMAN'S SIGN: Negative. BILIARY SYSTEM: No intrahepatic or extrahepatic biliary ductal dilation. KIDNEYS: Kidneys are symmetric in size. No evidence of renal calculi. No evidence of hydronephrosis. No renal mass or cyst identified. PANCREAS: Normal where visualized. SPLEEN: Enlarged at 16 cm in length. ABDOMINAL AORTA AND IVC: Visualized portions normal caliber. ASCITES: Moderate quantity of ascites is noted around the liver and spleen IMPRESSION: Cirrhotic appearing liver. Cholelithiasis. Splenomegaly. Ascites. DATA REPOSITORY:
== END ==
PROVIDERS: PCP Internal Medicine; Visit Provider Nurse Practitioner Gerontology
DX: R10.9 Unspecified abdominal pain (principal); R18.8 Other ascites; R33.8 Other retention of urine; K74.60 Unspecified cirrhosis of liver; R16.1 Splenomegaly, not elsewhere classified; K80.20 Calculus of gallbladder without cholecystitis without obstruction; Z46.6 Encounter for fitting and adjustment of urinary device
CPT/HCPCS: 51702; 76770; 81003; 76700

== ENCOUNTER → 2023-05-14 12:57 | Outpatient (BNVA) | payer MEDICARE, SELFPAY | PROVIDERS: PCP Internal Medicine; Referring Provider Internal Medicine; Visit Provider Surgery | DX: K70.31 Alcoholic cirrhosis of liver with ascites (principal); K40.90 Unilateral inguinal hernia, without obstruction or gangrene, not specified as recurrent; K42.9 Umbilical hernia without obstruction or gangrene | CPT/HCPCS: 49082 ==

== ENCOUNTER → 2023-05-26 13:22 | Outpatient (BNVA) | payer MEDICARE, SELFPAY | PROVIDERS: PCP Internal Medicine; Visit Provider Nurse Practitioner Gerontology | DX: C79.51 Secondary malignant neoplasm of bone (principal); R97.20 Elevated prostate specific antigen [PSA]; C61 Malignant neoplasm of prostate | CPT/HCPCS: 96402; J9217 ==

== ENCOUNTER 2023-06-02 05:34 | Emergency (ER) | payer MEDICARE, SELFPAY ==
[2023-06-02 05:39] VITALS: BP 130/64; PULSE 82; RESP 16; TEMP 36.6; O2SAT 100
--- NOTE | 2023-06-02 05:54 | ED.GENADUL_ITS ---
Discharge Plan Disposition Patient Disposition: Home Condition: Good Discharge Details Clinical Impression: Complication, blocked Elkins catheter Primary Care Provider: Rudolph Ryan ED Provider: Lorrie Mcclelland Home Meds and New Rx's Prescriptions: No Action acetaminophen [Tylenol] 325 mg capsule 325 mg PO DAILY PRN PRN Rx Instructions: for pain amiodarone 200 mg tablet 200 mg PO DAILY spironolactone 50 mg tablet 50 mg PO DAILY ferrous gluconate [Ferate] 240 mg (27 mg iron) tablet 240 mg PO BID aspirin [Aspir-81] 81 MG tablet,delayed release (DR/EC) 81 mg PO .QOD Patient Comments: 06/14/17 pt last day taking this is 06/17/17 pt aware, DCW losartan 50 MG tablet 50 mg PO DAILY tamsulosin 0.4 mg capsule 0.8 mg PO HS atorvastatin 40 mg tablet 40 mg PO DAILY Patient Comments: TAKE ONE TABLET BY MOUTH DAILY furosemide 40 mg tablet 40 mg PO DAILY multivitamin Tablet 1 tab PO DAILY ascorbic acid (vitamin C) [Vitamin C] 500 mg Tablet 500 mg PO DAILY dexlansoprazole 60 mg Capsule,Biphase Delayed Releas 60 mg PO DAILY lactulose 20 gram/30 mL Solution 20 g PO DAILY Discharge Instructions Instructions: Elkins Catheter Placement and Care (ED) Additional Instructions: Continue to care for your catheter at home as usual. Return to the emergency department or call urology if your catheter is not working or if you develop new or worsening symptoms. Medical Decision Making 82yo M with chronic indwelling elkins 2/t prostate cancer presenting with no drainage from catheter overnight. Leaked large volume of urine around catheter this morning. History from patient and at bedside. Denies s/s UTI, no other concerns. Vital signs and physical exam reassuring, no abdominal tenderness pain. Bladder scan shows ~25cc in bladder. Nursing attempted to flush catheter without success. Catheter removed and new elkins placed; small amount of clear yellow urine in elkins, no clots. Advised to monitor for re current symptoms/obstruction and discharged home. Discharged home; discharge instructions including return precautions were reviewed with patient and who verbalized understanding. All questions were answered and they are in full agreement with the plan. HPI General Mode of arrival: ambulatory . Date/Time Provider Initiated Documentation: 06/02/23 05:54 . Limitations to Documentation: no limitations . Information obtained by: patient and family . HPI Narrative: 82yo M with chronic indwelling elkins 2/t prostate cancer presenting with no drainage from catheter overnight. This morning had large amount of urine leak around the catheter. attempted to flush catheter without success. He is otherwise in his usual state of health with no fevers, chills, rash, abdominal pain, dysuria, hematuria, flank pain, or other concerns. Related Data Home Medications Medication Instructions Recorded Confirmed aspirin 81 mg tablet,delayed 81 mg PO .QOD 12/18/15 06/02/23 release (Aspir-) losartan 50 mg tablet 50 mg PO DAILY 06/12/16 06/02/23 tamsulosin 0.4 mg capsule 0.8 mg PO HS 09/25/20 06/02/23 acetaminophen 325 mg capsule 325 mg PO DAILY PRN PRN 07/10/21 06/02/23 (Tylenol) amiodarone 200 mg tablet 200 mg PO DAILY 07/10/21 06/02/23 ferrous gluconate 240 mg (27 mg 240 mg PO BID 07/27/22 06/02/23 iron) tablet (Ferate) atorvastatin 40 mg tablet 40 mg PO DAILY 08/17/22 06/02/23 ascorbic acid (vitamin C) 500 mg 500 mg PO DAILY 08/31/22 06/02/23 tablet (Vitamin C) dexlansoprazole 60 mg 60 mg PO DAILY 08/31/22 06/02/23 capsule,biphase delayed release lactulose 20 gram/30 mL oral 20 g PO DAILY 08/31/22 06/02/23 solution multivitamin 1 tab PO DAILY 08/31/22 06/02/23 furosemide 40 mg tablet 40 mg PO DAILY 04/27/23 06/02/23 spironolactone 50 mg tablet 50 mg PO DAILY 04/27/23 06/02/23 Allergies Allergy/AdvReac Type Severity Reaction Status Date / Time lisinopril AdvReac Intermediate cough Verified 06/02/23 05:43 spironolactone AdvReac Hyperkalemi Verified 06/02/23 05:43 a General Stated Complaint: Urinary EUSEBIO: 4 Review of Systems Narrative: see HPI PFSH All Active Problems (Updated 06/02/23 @ 06:09 by Lorrie Mcclelland MD) Complication, blocked Elkins catheter (Acute) Umbilical hernia (Acute) Left inguinal hernia (Acute) Cirrhosis (Chronic) Paroxysmal atrial fibrillation (Chronic) Incarcerated right inguinal hernia (Acute) Tricuspid regurgitation (Acute) BPH (benign prostatic hyperplasia) (Chronic) Acute urinary retention (Acute) Prostate cancer (Chronic) Bone metastasis (Acute) Ventricular tachycardia (Chronic) Coronary artery disease (Chronic) NSTEMI (non-ST elevated myocardial infarction) (Acute) Anemia (Chronic) Thrombocytopenia (Chronic) Ventricular tachycardia (Chronic) Cardiomyopathy (Acute) Abdominal distention (Acute) Screening for colon cancer (Acute) Fatigue (Acute) DNR (do not resuscitate) (Acute) COVID-19 (Acute) Ascites (Chronic) Medical History Gross hematuria Thrombocytopenia Iron deficiency anemia Inguinal hernia, recurrent Leg cramps Chronic kidney disease A-fib Congestive heart failure Lateral femoral cutaneous entrapment syndrome Myocardial infarct Nail disorder Jaundice Rectal bleeding Pain, joint, knee, left Ascites Nocturnal leg cramps Cor pulmonale Cardiorenal syndrome Corns and callus Bladder outlet obstruction Cholelithiasis Inguinal hernia GERD (gastroesophageal reflux disease) Hx of congestive heart failure History of alcohol abuse Overweight Hyperlipidemia Anemia Anticoagulation adequate Hx of myocardial infarction 2007 Surgical History Hx of cystoscopy Hx of colonoscopy Hx of cataract surgery Hx of inguinal hernia surgery Hx of CABG S/P CABG (coronary artery bypass graft) 2009 Social History Smoking/Tobacco Use Status: Former Tobacco Use Quit Date: 07/12/89 Tobacco: How many years used: 15 Smoking risk assessment performed?: Yes Alcohol Intake: former Drug use: Never Substance use type: does not use Do you feel safe at home: Yes Do you feel safe in your relationship?: Yes Exam Narrative Exam Narrative: General: Alert, well appearing, well nourished, in no acute distress. Head: Normocephalic, atraumatic Neck: Trachea midline, Neck supple. Cardiac: No cyanosis. Resp: No respiratory distress. Speaking in full sentences. . Abd: Soft, non-distended, nontender. Ascites. : No suprapubic tenderness. Extremities: No deformities. No peripheral edema. Neurologic: Alert. Moves all extremities freely against gravity Course Vital Signs Vital signs: Vital Signs Temperature 36.6 C 06/02/23 05:39 Pulse 82 06/02/23 05:39 Respiratory Rate 16 06/02/23 05:39 Blood Pressure 130/64 06/02/23 05:39 Pulse Oximetry 100 06/02/23 05:39 Temperature 36.6 C 06/02/23 05:39 Pulse 82 06/02/23 05:39 Respiratory Rate 16 06/02/23 05:39 Blood Pressure 130/64 06/02/23 05:39 Pulse Oximetry 100 06/02/23 05:39 Pain Level 3 06/02/23 05:39
== END 2023-06-02 06:19 | disposition home or self-care (01) ==
PROVIDERS: Emergency Provider Student in an Organized Health Care Education/Training Program; PCP Internal Medicine
DX: T83.038A Leakage of other urinary catheter, initial encounter (principal)
CPT/HCPCS: 51702; 99283

== ENCOUNTER → 2023-06-11 11:19 | Outpatient (BNVA) | payer MEDICARE, SELFPAY | PROVIDERS: PCP Internal Medicine; Referring Provider Internal Medicine; Visit Provider Surgery | DX: K70.31 Alcoholic cirrhosis of liver with ascites (principal) | CPT/HCPCS: 49082 ==

== ENCOUNTER → 2023-06-23 12:48 | Outpatient (BNVA) | payer MEDICARE, SELFPAY | PROVIDERS: PCP Internal Medicine; Visit Provider Nurse Practitioner Gerontology | DX: C79.51 Secondary malignant neoplasm of bone (principal); R33.8 Other retention of urine; R97.20 Elevated prostate specific antigen [PSA] | CPT/HCPCS: 51702; 96402; J9217 ==

== ENCOUNTER → 2023-07-14 10:18 | Outpatient (BNVA) | payer MEDICARE, SELFPAY | PROVIDERS: PCP Internal Medicine; Referring Provider Internal Medicine; Visit Provider Surgery | DX: K70.31 Alcoholic cirrhosis of liver with ascites (principal) | CPT/HCPCS: 99212 ==

== ENCOUNTER 2023-07-19 12:50 | Emergency (ER) | payer MEDICARE, SELFPAY ==
[2023-07-19 13:03] VITALS: BP 127/83; PULSE 78; RESP 18; TEMP 36.3; O2SAT 99
== END 2023-07-19 14:22 | disposition left against medical advice (07) ==
LOC: ER 13:01
PROVIDERS: PCP Internal Medicine
DX: R33.9 Retention of urine, unspecified; C61 Malignant neoplasm of prostate; Z53.21 Procedure and treatment not carried out due to patient leaving prior to being seen by health care provider; T83.091A Other mechanical complication of indwelling urethral catheter, initial encounter

== ENCOUNTER → 2023-07-21 13:18 | Outpatient (BNVA) | payer MEDICARE, SELFPAY | PROVIDERS: PCP Internal Medicine; Visit Provider Nurse Practitioner Gerontology ==

== ENCOUNTER 2023-07-21 15:03 | Outpatient (CLI) | payer MEDICARE, SELFPAY ==
[2023-07-21 14:19] LABS: Abs Immature Grans 0.02 10^3/uL (0.0-0.06); Absolute Basophil Count 0.02 10^3/uL (0.0-0.2); Absolute Eosinophil Count 0.06 10^3/uL (0.0-0.7); Absolute Lymphocyte Count 0.26 10^3/uL (1.2-3.4); Absolute Monocyte Count 0.38 10^3/uL (0.1-0.8); Absolute Neutrophil Count 2.75 10^3/uL (1.2-6.7); Basophils % 0.6; Eosinophils % 1.7; HCT 30.9 % (40.0-50.0); HGB 10.1 g/dL (13.5-17.5); Immature Grans % 0.6; Lymphocytes % 7.4; MCH 31.5 pg (27.0-33.0); MCHC 32.7 % (32.0-36.0); MCV 96 fL (80-95); MPV 12.3 fL (8.0-11.0); Monocytes % 10.9; Neutrophils % 78.8; RBC 3.21 10^6/uL (4.36-5.78); RDW 15.4 % (11.8-14.1); RDW-SD 54.8 fL; WBC 3.49 10^3/uL (4.4-10.8)
[2023-07-21 15:14] LABS: Diff Comment Diff Reviewed; Platelet Count 71 10^3/uL (130-400); RBC Morphology Normal
[2023-07-21 15:23] LABS: ALT 41 U/L (16-63); AST 48 U/L (15-37); Albumin 4.4 g/dL (3.4-5.0); Alkaline Phosphatase 113 U/L (46-116); BUN 38 mg/dL (7-18); Bilirubin, Total 0.9 mg/dL (0.2-1.0); Calcium 9.1 mg/dL (8.5-10.1); Chloride 101 mmol/L (98-107); Estimated GFR 32.51 (mL/min/1.73m2); Glucose 105 mg/dL (74-106); Potassium 4.1 mmol/L (3.5-5.1); Sodium 138 mmol/L (136-145); Total Protein 7.6 g/dL (6.4-8.2)
[2023-07-22 19:56] LABS: PSA, Ultrasensitive 0.07 ng/mL (<= 7.2)
[2023-07-26 09:00] LABS: Testosterone, Total <7.0 ng/dL (240-950)
== END 2023-07-21 15:04 | disposition home or self-care (01) ==
LOC: LBO 15:04
PROVIDERS: PCP Internal Medicine; Visit Provider Internal Medicine
DX: C61 Malignant neoplasm of prostate (principal)
CPT/HCPCS: 36415; 80053; 84153; 84403; 96402; 85025; J9217

== ENCOUNTER → 2023-08-06 00:24 | Outpatient (CLI) | payer MEDICARE, SELFPAY ==
--- NOTE | 2023-08-06 12:30 | DI.US_ITS ---
APPROVED REPORT EXAM: Comprehensive 2D, Doppler, and color-flow Echocardiogram Patient Location: Out-Patient Management Architect: Boris Cook RDCS (AE) Conclusion 1.The atria are humungous, the ventricles are moderately dilated 2. Moderate LV systolic dysfunction, EF estimated at 35-40%. Moderate RV dysfunction. 3. Mitral annuloplasty ring in place. Only mild MR present. 4. Normal aortic valve with dilated aortic root. Only mild AI present.Mildly dilated ascending aorta. 5. TV anatomically normal, severe TR with no phtn 6. No pericardial effusion. Wall motion Left Ventricle Left ventricle is severely dilated. Left ventricular systolic function is moderately decreased. There is normal left ventricular wall thickness. There is global hypokinesis of the left ventricle. There is no ventricular septal defect visualized. LVEF is 37-40%. Right Ventricle Right ventricle is moderate to severely dilated. Right ventricular systolic function is grossly rhonda l. Atria Left atrium is severely dilated. Right atrium is severely dilated. The interatrial septum is intact w ith no evidence for an atrial septal defect. Aortic Valve The aortic valve is normal in structure. Aortic valve is trileaflet. There is no aortic valvular sten osis. Mild aortic regurgitation. Mitral Valve Mitral annuloplasty ring present. Mild mitral regurgitation. Tricuspid Valve The tricuspid valve is normal in structure. There is no tricuspid valve stenosis. Severe tricuspid re gurgitation. The RVSP is 30.4 mmHg. Pulmonic Valve The pulmonary valve is normal in structure. There is no pulmonic valvular stenosis. Mild pulmonic reg urgitation. Great Vessels Aortic root is severely dilated. The ascending aorta is mildly dilated. Aortic arch is normal in jesús esha. The IVC collapses <50% with inspiration. Pericardium There is no pericardial effusion. 2D Dimensions IVSD d PLAX 0.63 cm M: 0.6-1.2 Ao Root d 4.25 cm M: 3.1 - 3.7 LVPW d PLAX 0.56 cm M: 0.6 - 1.2 Ao Asc Diam d 3.63 cm M: 2.6 - 3.4 LVID d PLAX 7.01 cm M: 4.2 - 5.8 RVOT Diameter 3.91 cm LVDs 5.60 cm M: 2.5 - 4.0 LV EF Teichholz 40.1 % FS 20.13 % LV EDV (Teich) 256.0 mL LV ESV (Teich) 153.4 mL Stroke Vol Index (Teich) 55.13 M-Mode TAPSE 1.68 cm (M/F) >1.7 Auto EF LV EDV A4C 133.2 mL LV EDV A2C 204.9 mL LV EDV BP 167.5 mL LV ESV A4C 83.7 mL LV ESV A2C 124.1 mL LV ESV BP 99.7 mL LVEF(%) A4C 37.2 % LVEF(%) A2C 39.4 % LVEF(%) BP 40.5 % LV SV A4C 49.5 ml LV SV A2C 80.8 ml LV SV BP 67.8 ml LV CO A4C 4.4 L/min LV CO A2C 7.0 L/min LV CO BP 5.7 L/min HR A4C 88.89 BPM HR A2C 86.13 BPM LV EDV Index (BP) LA Volume LA Length A4C 9.8 cm LA Length A2C 8.9 cm LA Area A4C s 55.32 cm2 LA Area A2C s 60.03 cm2 LA Vol A4C A-L 264.31 mL LA Vol A2C A-L 344.89 mL LA Vol Biplane A-L 317.8 mL LA Vol/BSA A4C A-L LA Vol/BSA A2C A-L LA Vol/BSA BP A-L 170.9 mL/m2 LA Vol A4C MOD 233.1 mL LA Vol A2C MOD 358.0 mL LA Vol BP MOD 294.5 mL RA Volume RA Area A4C 63.1 cm2 RA ESV A4C (A-L) 354.0mL RA Vol/BSA A4C A-L RA Length A4C 9.5 cm RA ESV A4C (MOD) 349.5mL LV Diastology MV E' medial 0.092 (>0.07 m/s) MV E Vmax 1.51 (0.4-1.3 m/s) MV E/E' MED 16.34 (<14) MV A Vmax 0.85 (0.4-1.3 m/s) MV E' lateral 0.130 (>0.1 m/s) E/A Ratio 1.8 MV E/E' LAT 11.64 (<14) MV E' Average 0.111 m/s MV E/E'(average) 13.59 Aortic Valve AoV Vmax 1.09 m/s LVOT Vmax 0.63 m/s AoV Peak Grad 33.6 mmHg LVOT Peak Grad 1.6 mmHg AoV Area (Vmax) 1.98 cm2 LVOT VTI 0.144 m AoV VTI 0.242 m LVOT Mean Grad 0.8 mmHg AoV Mean [place]. 0.79 m/s LVOT SV 49.18 mL AoV Mean Grad 2.8 mmHg LVOT Diam s 2.05 cm AoV Area (VTI) 2.03 cm2 AV Regurg Peak Gr. 62.50 mmHg Velocity Ratio 0.58 AR Decel Williamson 2.3m/sec2 AR DT 1684 msec AR PHT 488 msec AR Vmax 3.95 m/s Mitral Valve MV DT 164 (160-240 msec) MV Vmax TIPS 1.55 m/s MV Mean Grad 4.0 (<2mmHg) MV VTI 0.363 m Pulmonary Valve RVOT Diam s 3.91 cm (M/F) 2.1-3.5 Tricuspid Valve RA Pressure 8.00 mmHg TR Vmax 2.37 m/s TR Peak Grad 22.4 mmHg RVSP (TR) 30.4 mmHg
== END ==
PROVIDERS: PCP Internal Medicine; Visit Provider Internal Medicine Cardiovascular Disease
DX: I42.9 Cardiomyopathy, unspecified (principal)
CPT/HCPCS: 93306

== ENCOUNTER 2023-08-07 13:42 | Emergency (ER) | payer MEDICARE, SELFPAY ==
[2023-08-07 13:46] VITALS: BP 97/67; PULSE 81; RESP 16; TEMP 36.7; O2SAT 98
[2023-08-07 14:27] VITALS: BP 97/67; PULSE 81; RESP 16; TEMP 36.7; O2SAT 98
--- NOTE | 2023-08-07 14:57 | ED.GENADUL_ITS ---
HPI General Date/Time Provider Initiated Documentation: 08/07/23 13:53 . Limitations to Documentation: no limitations . Information obtained by: patient . HPI Narrative: 82-year-old gentleman with past medical history of cirrhosis, A-fib, CAD, prostate cancer with bone metastasis presents for evaluation of leaking Lazo catheter. He reports that urine is coming out from around the Lazo catheter. He is still having some urine output through the catheter into his leg bag. This has been occurring for the last 2 days. He is feeling some cramping and spasming in his lower abdomen. Denies any fever, nausea or vomiting. He reports that 2 days ago they noted that his Lazo leg bag was purple and they were not sure what this meant. Related Data Home Medications Medication Instructions Recorded Confirmed aspirin 81 mg tablet,delayed 81 mg PO .QOD 12/18/15 08/07/23 release (Aspir-) losartan 50 mg tablet 50 mg PO DAILY 06/12/16 08/07/23 tamsulosin 0.4 mg capsule 0.8 mg PO HS 09/25/20 08/07/23 acetaminophen 325 mg capsule 325 mg PO DAILY PRN PRN 07/10/21 08/07/23 (Tylenol) amiodarone 200 mg tablet 200 mg PO DAILY 07/10/21 08/07/23 ferrous gluconate 240 mg (27 mg 240 mg PO BID 07/27/22 08/07/23 iron) tablet (Ferate) atorvastatin 40 mg tablet 40 mg PO DAILY 08/17/22 08/07/23 ascorbic acid (vitamin C) 500 mg 500 mg PO DAILY 08/31/22 08/07/23 tablet (Vitamin C) dexlansoprazole 60 mg 60 mg PO DAILY 08/31/22 08/07/23 capsule,biphase delayed release multivitamin 1 tab PO DAILY 08/31/22 08/07/23 furosemide 40 mg tablet 40 mg PO DAILY 04/27/23 08/07/23 spironolactone 50 mg tablet 50 mg PO DAILY 04/27/23 08/07/23 triamcinolone acetonide 0.1 % applic topical 07/19/23 topical cream cephalexin 500 mg capsule 500 mg PO BID 7 days #14 caps 08/07/23 Previous Rx's Medication Instructions Recorded cephalexin 500 mg capsule 500 mg PO BID 7 days #14 caps 01/27/24 Allergies Allergy/AdvReac Type Severity Reaction Status Date / Time lisinopril AdvReac Intermediate cough Verified 08/07/23 13:45 spironolactone AdvReac Hyperkalemi Verified 08/07/23 13:45 a General Stated Complaint: Urinary EUSEBIO: 4 Exam Narrative Exam Narrative: Review of Systems: All systems reviewed & are unremarkable except as noted in HPI and below Well-developed, no acute distress NACT PERRL, normal conjunctiva RRR Unlabored respiratory effort Soft, nontender distended abdomen, umbilical hernia, reducible Extremities w/o deformity, no cyanosis, no edema + Jaundice Urinary catheter in place, no penile lesions, leg bag is purple no focal neurologic deficits Appropriate mood and affect Course Vital Signs Vital signs: Vital Signs Temperature 36.7 C 08/07/23 13:46 Pulse 81 08/07/23 13:46 Respiratory Rate 16 08/07/23 13:46 Blood Pressure 97/67 L 08/07/23 13:46 Pulse Oximetry 98 08/07/23 13:46 Temperature 36.7 C 08/07/23 14:27 Temperature Source Skin 08/07/23 14:27 Pulse 81 08/07/23 14:27 Respiratory Rate 16 08/07/23 14:27 Respiratory Effort Normal, Non-Labored 08/07/23 13:50 Blood Pressure 97/67 L 08/07/23 14:27 Pulse Oximetry 98 08/07/23 14:27 Pain Level 0 08/07/23 14:27 Lab/Test Results Lab/Test Results: 08/07/23 14:31 Urine - Cath Lazo Indwelling Urine Culture - Pending Medical Decision Making Emergent evaluation of Lazo catheter dysfunction. Initial differential includes infection, clogged, no evidence of hematuria. Purple discoloration indicates likely infection. He is still having flow through the catheter, so no obvious clot. Plan for catheter exchange and urinalysis. Anticipate need for antibiotic. Will send urine culture and patient is followed closely by urology here. 1530 Urinalysis results consistent with infection. Culture pending. I reviewed prior cultures and sensitivities. Patient has mostly been pansensitive. Plan for discharge home with keflex. Follow-up closely with urology Medical Records Medical records reviewed: Yes I reviewed the patient's medical records. Lab Data Lab results reviewed: Yes I reviewed the patient's lab results. Quality:[facility] Health Related Social Needs: No Data to Display PFSH All Active Problems (Updated 08/07/23 @ 15:29 by Jaki Pelaez MD) Catheter-associated urinary tract infection (Acute) Umbilical hernia (Acute) Left inguinal hernia (Acute) Cirrhosis (Chronic) Paroxysmal atrial fibrillation (Chronic) Incarcerated right inguinal hernia (Acute) Tricuspid regurgitation (Acute) BPH (benign prostatic hyperplasia) (Chronic) Acute urinary retention (Acute) Prostate cancer (Chronic) Bone metastasis (Acute) Ventricular tachycardia (Chronic) Coronary artery disease (Chronic) NSTEMI (non-ST elevated myocardial infarction) (Acute) Anemia (Chronic) Thrombocytopenia (Chronic) Ventricular tachycardia (Chronic) Cardiomyopathy (Acute) Abdominal distention (Acute) Screening for colon cancer (Acute) Fatigue (Acute) DNR (do not resuscitate) (Acute) COVID-19 (Acute) Ascites (Chronic) Medical History Gross hematuria Thrombocytopenia Iron deficiency anemia Inguinal hernia, recurrent Leg cramps Chronic kidney disease A-fib Congestive heart failure Lateral femoral cutaneous entrapment syndrome Myocardial infarct Nail disorder Jaundice Rectal bleeding Pain, joint, knee, left Ascites Nocturnal leg cramps Cor pulmonale Cardiorenal syndrome Corns and callus Bladder outlet obstruction Cholelithiasis Inguinal hernia GERD (gastroesophageal reflux disease) Hx of congestive heart failure History of alcohol abuse Overweight Hyperlipidemia Anemia Anticoagulation adequate Hx of myocardial infarction 2007 Surgical History Hx of cystoscopy Hx of colonoscopy Hx of cataract surgery Hx of inguinal hernia surgery Hx of CABG S/P CABG (coronary artery bypass graft) 2010 Social History Smoking/Tobacco Use Status: Former Tobacco Use Quit Date: 07/12/89 Tobacco: How many years used: 15 Smoking risk assessment performed?: Yes Alcohol Intake: former Drug use: Never Substance use type: does not use Housing: house Do you feel safe at home: Yes Do you feel safe in your relationship?: Yes Discharge Plan Disposition Patient Disposition: Home Condition: Stable Discharge Details Clinical Impression: Catheter-associated urinary tract infection Primary Care Provider: Rudolph Ryan ED Provider: Jaki Pelaez Home Meds and New Rx's Prescriptions: New cephalexin 500 mg capsule 500 mg PO BID 7 Days Qty: 14 0RF No Action acetaminophen [Tylenol] 325 mg capsule 325 mg PO DAILY PRN PRN Rx Instructions: for pain amiodarone 200 mg tablet 200 mg PO DAILY spironolactone 50 mg tablet 50 mg PO DAILY ferrous gluconate [Ferate] 240 mg (27 mg iron) tablet 240 mg PO BID aspirin [Aspir-81] 81 MG tablet,delayed release (DR/EC) 81 mg PO .QOD Patient Comments: 06/14/17 pt last day taking this is 06/17/17 pt aware, DCW losartan 50 MG tablet 50 mg PO DAILY triamcinolone acetonide 0.1 % cream TOPICAL Patient Comments: APPLY TO ABDOMINAL RASH DAILY NEEDED tamsulosin 0.4 mg capsule 0.8 mg PO HS atorvastatin 40 mg tablet 40 mg PO DAILY Patient Comments: TAKE ONE TABLET BY MOUTH DAILY furosemide 40 mg tablet 40 mg PO DAILY multivitamin Tablet 1 tab PO DAILY ascorbic acid (vitamin C) [Vitamin C] 500 mg Tablet 500 mg PO DAILY dexlansoprazole 60 mg Capsule,Biphase Delayed Releas 60 mg PO DAILY Discharge Instructions Instructions: Urinary Tract Infection in Men (ED) Additional Instructions: Start antibiotics as prescribed. Return to the emergency department if you develop fever, vomiting, not tolerating medication, dysfunction of your catheter. Please follow-up with urology otherwise for culture monitoring.
[2023-08-07 15:08] LABS: Bilirubin Negative (Negative); Blood Moderate (Negative); Clarity Clear (Clear); Glucose Negative (Negative); Ketones Negative (Negative); Leukocyte Esterase Moderate (Negative); Nitrite Negative (Negative); Specific Gravity 1.015 (1.005-1.025)
[2023-08-07] MEDS: Lidocaine 2% Jelly 11 ML SYR (15:15)
[2023-08-07 15:17] LABS: Bacteria Moderate HPF (Negative); Crystals Negative HPF (Negative); Epithelial Cells Rare HPF (Negative); Other Cells Rare Transitional (Negative)
[2023-08-07 15:18] LABS: C & S Indicated? C&S Done As Ordered; Casts Negative LPF (Negative); Mucus Negative (Negative)
[2023-08-07 15:40] VITALS: BP 105/73; PULSE 61; RESP 18; TEMP 36.6; O2SAT 94
== END 2023-08-07 15:49 | disposition home or self-care (01) ==
PROVIDERS: Emergency Provider Emergency Medicine; PCP Internal Medicine
DX: T83.511A Infection and inflammatory reaction due to indwelling urethral catheter, initial encounter (principal); T83.038A Leakage of other urinary catheter, initial encounter; C61 Malignant neoplasm of prostate; I48.91 Unspecified atrial fibrillation; C79.51 Secondary malignant neoplasm of bone
CPT/HCPCS: 51702; 87077; 99283; 81003; 81015; 87086; 87186; 99284

== ENCOUNTER → 2023-08-18 12:54 | Outpatient (BNVA) | payer MEDICARE, SELFPAY | PROVIDERS: PCP Internal Medicine; Visit Provider Nurse Practitioner Gerontology | DX: C79.51 Secondary malignant neoplasm of bone (principal); R97.20 Elevated prostate specific antigen [PSA]; C61 Malignant neoplasm of prostate | CPT/HCPCS: 96402; J9217 ==

== ENCOUNTER → 2023-09-03 12:04 | Outpatient (BNVA) | payer MEDICARE, SELFPAY | PROVIDERS: PCP Internal Medicine; Referring Provider Internal Medicine; Visit Provider Urology | DX: C61 Malignant neoplasm of prostate (principal); R33.8 Other retention of urine | CPT/HCPCS: 51705; 76775 ==

== ENCOUNTER 2023-09-09 04:22 | Emergency (ER) | payer MEDICARE, SELFPAY ==
[2023-09-09 04:25] VITALS: BP 120/65; PULSE 87; RESP 16; TEMP 36.6; O2SAT 98
--- NOTE | 2023-09-09 04:43 | ED.GENADUL_ITS ---
Discharge Plan Disposition Patient Disposition: Home Condition: Good Discharge Details Clinical Impression: Acute UTI, Complication of Lazo catheter Primary Care Provider: Rudolph Ryan ED Provider: Luis Quigley Home Meds and New Rx's Prescriptions: New cefpodoxime 200 mg tablet 200 mg PO BID 10 Days Qty: 20 0RF Rx Instructions: must administer with a meal/food No Action acetaminophen [Tylenol] 325 mg capsule 325 mg PO DAILY PRN PRN Rx Instructions: for pain amiodarone 200 mg tablet 200 mg PO DAILY spironolactone 50 mg tablet 50 mg PO DAILY ferrous gluconate [Ferate] 240 mg (27 mg iron) tablet 240 mg PO BID aspirin [Aspir-81] 81 MG tablet,delayed release (DR/EC) 81 mg PO .QOD Patient Comments: 06/14/17 pt last day taking this is 06/17/17 pt aware, DCW losartan 50 MG tablet 50 mg PO DAILY triamcinolone acetonide 0.1 % cream 1 applic TOPICAL PRN Patient Comments: APPLY TO ABDOMINAL RASH DAILY NEEDED tamsulosin 0.4 mg capsule 0.8 mg PO HS atorvastatin 40 mg tablet 40 mg PO DAILY Patient Comments: TAKE ONE TABLET BY MOUTH DAILY furosemide 40 mg tablet 40 mg PO BID multivitamin Tablet 1 tab PO DAILY ascorbic acid (vitamin C) [Vitamin C] 500 mg Tablet 500 mg PO DAILY dexlansoprazole 60 mg Capsule,Biphase Delayed Releas 60 mg PO DAILY Discharge Instructions Instructions: Urinary Tract Infection in Men (ED) Additional Instructions: At this time there is concern that you may be having a urinary tract infection. Please follow-up closely with Dr. Lazcano. Please take the antibiotic as directed. If you notice any worsening of your symptoms, or any new symptoms such as vomiting, diarrhea, fever, chills, shortness of breath, chest pain, numbness, weakness, or fainting , please return immediately to the emergency department for reevaluation. Please follow up with your primary care provider as soon as possible for reassessment and reevaluation. As always, it was a pleasure participating in your medical care today. Referrals: Gasper Lazcano MD [ [facility] STAFF PHYSICIAN] - Rudolph Ryan [Primary Care Provider] - [facility] General Date/Time Provider Initiated Documentation: 09/09/23 04:32 . HPI Narrative: 82-year-old male who is DNR/DNI with a history of paroxysmal atrial fibrillation on a daily aspirin and amiodarone, cirrrhosis with ascites, prostate cancer, chronic kidney disease, NSTEMI, BPH with chronic urinary retention and chronic indwelling Lazo presents today for catheter complication. Patient states that tonight he noticed some blood in his Lazo catheter that occurred this evening. Since then he has been having spasms in his suprapubic region. He has had some leaking out around the catheter at his urethral meatus, but is difficult to know if this is chronic or acute. He denies fever or chills. He denies any other complaints. He does state that he has been slightly constipated for the last week or so, and has only had small hard stools that have come out. She does ta ke Colace at night. But he does not drink much water throughout the day. No other complaints at this time. No other modifying factors. He denies any nausea or vomiting. Related Data Home Medications Medication Instructions Recorded Confirmed aspirin 81 mg tablet,delayed 81 mg PO .QOD 12/18/15 09/09/23 release (Aspir-) losartan 50 mg tablet 50 mg PO DAILY 06/12/16 09/09/23 tamsulosin 0.4 mg capsule 0.8 mg PO HS 09/25/20 09/09/23 acetaminophen 325 mg capsule 325 mg PO DAILY PRN PRN 07/10/21 09/09/23 (Tylenol) amiodarone 200 mg tablet 200 mg PO DAILY 07/10/21 09/09/23 ferrous gluconate 240 mg (27 mg 240 mg PO BID 07/27/22 09/09/23 iron) tablet (Ferate) atorvastatin 40 mg tablet 40 mg PO DAILY 08/17/22 09/09/23 ascorbic acid (vitamin C) 500 mg 500 mg PO DAILY 08/31/22 09/09/23 tablet (Vitamin C) dexlansoprazole 60 mg 60 mg PO DAILY 08/31/22 09/09/23 capsule,biphase delayed release multivitamin 1 tab PO DAILY 08/31/22 09/09/23 furosemide 40 mg tablet 40 mg PO BID 04/27/23 09/09/23 spironolactone 50 mg tablet 50 mg PO DAILY 04/27/23 09/09/23 triamcinolone acetonide 0.1 % 1 applic topical PRN 07/19/23 topical cream cefpodoxime 200 mg tablet 200 mg PO BID 10 days #20 tabs 09/09/23 Previous Rx's Medication Instructions Recorded cefpodoxime 200 mg tablet 200 mg PO BID 10 days #20 tabs 09/09/23 Allergies Allergy/AdvReac Type Severity Reaction Status Date / Time lisinopril AdvReac Intermediate cough Verified 08/07/23 13:45 spironolactone AdvReac Hyperkalemi Verified 08/07/23 13:45 a General Stated Complaint: Urinary EUSEBIO: 3 Review of Systems All systems reviewed & are unremarkable except as noted in HPI and below Exam Narrative Exam Narrative: 1.Const: Well-nourished, Well-developed, appearing stated age 2.Eyes: PERRL, no conjunctival injection, and symmetrical lids. 3.ENT: Atraumatic external nose and ears. Moist MM. Neck: Symmetric, trachea midline, No thyromegaly. 4.CVS: +S1/S2, No murmurs or gallops. Peripheral pulses 2+ and equal in all extremities. Brisk capillary refill in all extremities. 5.RESP: Unlabored respiratory effort. Clear to auscultation bilaterally. No wheezes rales or rhonchi 6.GI: Soft, Nontender/Nondistended, No hepatosplenomegaly. No guarding or rebound. Lazo catheter in place. No significant abdominal pain or tenderness. Mild abdominal hernia is easily reducible. No pain or tenderness on palpation of the genital area. Mild leaking of urine around the Lazo catheter. 7.MSK: Normocephalic/Atraumatic, Extremities w/o deformity or ttp No cyanosis or clubbing, Normal movement of all extremities 8.Skin: Warm, Dry. No rashes or lesions. 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 Sensation grossly intact, no focal neurologic deficits. 10.Psych: (AAO) x3. Appropriate mood and affect Course Vital Signs Vital signs: Vital Signs Temperature 36.6 C 09/09/23 04:25 Pulse 87 09/09/23 04:25 Respiratory Rate 16 09/09/23 04:25 Blood Pressure 120/65 09/09/23 04:25 Pulse Oximetry 98 09/09/23 04:25 Temperature 36.6 C 09/09/23 04:25 Temperature Source Temporal Artery Scan 09/09/23 04:25 Pulse 87 09/09/23 04:25 Respiratory Rate 16 09/09/23 04:25 Respiratory Effort Normal, Non-Labored 09/09/23 04:35 Blood Pressure 120/65 09/09/23 04:25 Blood Pressure Position Sitting 09/09/23 04:25 Pulse Oximetry 98 09/09/23 04:25 Oxygen Delivery Method Room Air 09/09/23 04:25 Oxygen Flow Rate 0 09/09/23 04:25 Pain Level 8 09/09/23 04:35 Medical Decision Making 82-year-old male who is DNR/DNI with a history of paroxysmal atrial fibrillation on a daily aspirin and amiodarone, cirrrhosis with ascites, prostate cancer, chronic kidney disease, NSTEMI, BPH with chronic urinary retention and chronic indwelling Lazo presents today for catheter complication. Patient states that tonight he noticed some blood in his Lazo catheter that occurred this evening. Since then he has been having spasms in his suprapubic region. He has had some leaking out around the catheter at his urethral meatus, but is difficult to know if this is chronic or acute. He denies fever or chills. He denies any other complaints. He does state that he has been slightly constipated for the last week or so, and has only had small hard stools that have come out. She does take Colace at night. But he does not drink much water throughout the day. No other complaints at this time. No other modifying factors. He denies any nausea or vomiting. Exam demonstrates well-appearing male, abdominal pain is nontender. No signs of an acute surgical abdomen. Small amount of urine leaking around the Lazo catheter. Mild amount of blood-tinged urine in the bag. Differential includes bladder spasm, obstruction of the Lazo catheter, or infection. Will evaluate for these, monitor closely and reassess. 7 AM Lazo catheter was replaced, subsequent urine was yellow. Sample was drawn, and does seem to show evidence of potential UTI. Will start the patient on cefpodoxime for which she has demonstrated sensitivities to in the past. Patient feels much better, symptoms have resolved. Will recommend close follow- up with Dr. Lazcano. Discussed red flags which to return. I have extensively reviewed the treatment plan and discharge instructions with the patient. I have addressed all patient concerns at this time. The patient was made aware of what symptoms to monitor for that would warrant a return to the emergency department. Discussed the plan with the patient, they demonstrate verbal understanding and agreement with our assessment and plan at this time. The documentation in this chart was dictated using [employer] dictation software. Please excuse any dictation errors. Quality:[facility] Health Related Social Needs: No Data to Display PFSH All Active Problems (Updated 09/09/23 @ 06:33 by Luis Quigley DO) Complication of Lazo catheter (Acute) Acute UTI (Acute) Catheter-associated urinary tract infection (Acute) Umbilical hernia (Acute) Left inguinal hernia (Acute) Cirrhosis (Chronic) Paroxysmal atrial fibrillation (Chronic) Incarcerated right inguinal hernia (Acute) Tricuspid regurgitation (Acute) BPH (benign prostatic hyperplasia) (Chronic) Acute urinary retention (Acute) Prostate cancer (Chronic) Bone metastasis (Acute) Ventricular tachycardia (Chronic) Coronary artery disease (Chronic) NSTEMI (non-ST elevated myocardial infarction) (Acute) Anemia (Chronic) Thrombocytopenia (Chronic) Ventricular tachycardia (Chronic) Cardiomyopathy (Acute) Abdominal distention (Acute) Screening for colon cancer (Acute) Fatigue (Acute) DNR (do not resuscitate) (Acute) COVID-19 (Acute) Ascites (Chronic) Medical History Gross hematuria Thrombocytopenia Iron deficiency anemia Inguinal hernia, recurrent Leg cramps Chronic kidney disease A-fib Congestive heart failure Lateral femoral cutaneous entrapment syndrome Myocardial infarct Nail disorder Jaundice Rectal bleeding Pain, joint, knee, left Ascites Nocturnal leg cramps Cor pulmonale Cardiorenal syndrome Corns and callus Bladder outlet obstruction Cholelithiasis Inguinal hernia GERD (gastroesophageal reflux disease) Hx of congestive heart failure History of alcohol abuse Overweight Hyperlipidemia Anemia Anticoagulation adequate Hx of myocardial infarction 2007 Surgical History Hx of cystoscopy Hx of colonoscopy Hx of cataract surgery Hx of inguinal hernia surgery Hx of CABG S/P CABG (coronary artery bypass graft) 2010 Social History Smoking/Tobacco Use Status: Former Tobacco Use Quit Date: 07/12/89 Tobacco: How many years used: 15 Smoking risk assessment performed?: Yes Alcohol Intake: former Drug use: Never Substance use type: does not use Housing: house Do you feel safe at home: Yes Do you feel safe in your relationship?: Yes
[2023-09-09 05:44] LABS: Bilirubin Negative (Negative); Blood Large (Negative); Clarity Sl Cloudy (Clear); Glucose Negative (Negative); Ketones Negative (Negative); Leukocyte Esterase Moderate (Negative); Nitrite Negative (Negative); Specific Gravity 1.015 (1.005-1.025); Urobilinogen 0.2 mg/dL (Up to 0.2)
[2023-09-09 05:59] LABS: Bacteria Moderate HPF (Negative); C & S Indicated? C&S Done As Ordered; Casts Negative LPF (Negative); Crystals Negative HPF (Negative); Epithelial Cells Rare HPF (Negative); Mucus Negative (Negative); RBC >50 HPF (0-2); WBC 20-50 HPF (0-5)
[2023-09-09] MEDS: Cefpodoxime 200 MG TAB PO (06:38)
[2023-09-09 06:46] VITALS: BP 109/64; PULSE 80; PULSE 81; RESP 14; RESP 18; TEMP 37; O2SAT 96
== END 2023-09-09 06:47 | disposition home or self-care (01) ==
PROVIDERS: Emergency Provider Student in an Organized Health Care Education/Training Program; PCP Internal Medicine
DX: T83.9XXA Unspecified complication of genitourinary prosthetic device, implant and graft, initial encounter (principal); N39.0 Urinary tract infection, site not specified; N40.1 Benign prostatic hyperplasia with lower urinary tract symptoms; Z85.46 Personal history of malignant neoplasm of prostate; Z86.79 Personal history of other diseases of the circulatory system; Z87.898 Personal history of other specified conditions; R31.9 Hematuria, unspecified; N18.9 Chronic kidney disease, unspecified
CPT/HCPCS: 51702; 51798; 99284; 81003; 81015; 87086; 99283

== ENCOUNTER → 2023-09-30 11:13 | Outpatient (BNVA) | payer MEDICARE, SELFPAY | PROVIDERS: PCP Internal Medicine; Referring Provider Internal Medicine; Visit Provider Surgery | DX: K70.31 Alcoholic cirrhosis of liver with ascites (principal); R10.9 Unspecified abdominal pain | CPT/HCPCS: 76705 ==

== ENCOUNTER → 2023-09-30 12:28 | Outpatient (BNVA) | payer MEDICARE, SELFPAY | PROVIDERS: PCP Internal Medicine; Referring Provider Internal Medicine; Visit Provider Nurse Practitioner Gerontology ==

== ENCOUNTER 2023-09-30 13:33 | Outpatient (CLI) | payer MEDICARE, SELFPAY ==
[2023-09-30 13:27] LABS: ALT 34 U/L (16-63); AST 44 U/L (15-37); Albumin 4.5 g/dL (3.4-5.0); Alkaline Phosphatase 97 U/L (46-116); Amylase 75 U/L (25-115); Anion Gap 8.4 mmol/L (3-11); BUN 33 mg/dL (7-18); Bilirubin, Total 0.9 mg/dL (0.2-1.0); CO2 31.6 mmol/L (21.0-32.0); CREATININE 1.9 mg/dL (0.70-1.30); Calcium 8.9 mg/dL (8.5-10.1); Chloride 100 mmol/L (98-107); Estimated GFR 34.57 (mL/min/1.73m2); Glucose 101 mg/dL (74-106); Lipase 19 U/L (16-77); Potassium 4.1 mmol/L (3.5-5.1); Sodium 140 mmol/L (136-145); Total Protein 7.7 g/dL (6.4-8.2)
== END 2023-09-30 13:34 | disposition home or self-care (01) ==
LOC: LBO 13:34
PROVIDERS: PCP Internal Medicine; Visit Provider Surgery
DX: K70.31 Alcoholic cirrhosis of liver with ascites (principal)
CPT/HCPCS: 36415; 51702; 76705; 80053; 83690; 82150

== ENCOUNTER → 2023-10-08 10:47 | Outpatient (BNVA) | payer MEDICARE, SELFPAY | PROVIDERS: PCP Internal Medicine; Referring Provider Internal Medicine; Visit Provider Urology | DX: Z46.6 Encounter for fitting and adjustment of urinary device (principal); T83.9XXD Unspecified complication of genitourinary prosthetic device, implant and graft, subsequent encounter; C61 Malignant neoplasm of prostate; C79.51 Secondary malignant neoplasm of bone | CPT/HCPCS: 52000 ==

== ENCOUNTER → 2023-10-15 00:50 | Outpatient (CLI) | payer MEDICARE, SELFPAY ==
--- NOTE | 2023-10-15 06:58 | DI.CT_ITS ---
Exam(s) CT ABDOMEN PELVIS WO EXAM: CT ABDOMEN PELVIS WO CLINICAL HISTORY: abd pain,r10.9. TECHNIQUE: Imaging Protocol: Axial computed tomography images with coronal and sagittal reformatted images were created and reviewed CONTRAST MATERIAL: Intravenous: None (compromised renal status) Oral: Yes. Oral contrast was administered for bowel opacification. COMPARISON: CT CT ABDOMEN PELVIS W from 04/01/[address] ABDOMEN PELVIS WO from 12/18/2022 FINDINGS: VISUALIZED LUNG BASES: No nodules nor pleural effusions evident. Cardiomegaly again noted and mitral valve prosthesis. Sternotomy wires. ABDOMEN: Moderate size hiatal hernia noted There is presently no ascites. The previously present abundant ascites which was evident on CT scan of December 2022 has resolved. LIVER: Somewhat cirrhotic appearing liver again noted. Benign cysts in the left hepatic lobe again n oted measuring approximately 2.7 x 2.9 cm, unchanged. There are no obvious new disc like lesions yi dent on this noninfused study. GALLBLADDER/BILIARY: Multiple layering gallstones are again noted in the gallbladder lumen. The gall bladder is not distended nor edematous and there is no pericholecystic fluid. CBD is not dilated. PANCREAS: No evidence of pancreatic mass nor dilatation of the pancreatic duct. SPLEEN: Splenomegaly again noted. The cephalocaudal measurement of the spleen is 15.6 cm, slightly s maller than previous (previously measured 17.5 cephalocaudal measurement) ADRENALS: There are no significant adrenal masses. KIDNEYS:No cysts evident. No solid renal masses. No calculi nor hydronephrosis. . ABDOMINAL AORTA: Abdominal aorta is not enlarged. LYMPH NODES: There is no retroperitoneal nor paraaortic adenopathy. There is no adenopathy nor along the iliac chains and there is no inguinal adenopathy. There is no obturator adenopathy in the pelvi s. ABDOMINAL WALL: No evidence of significant anterior abdominal wall nor inguinal hernia. GI: There is no evidence of bowel obstruction, free air, nor abscess. PELVIS: LYMPH NODES: There is no intrapelvic nor inguinal adenopathy. GI: No evidence of appendicitis.There are uncomplicated appearing diverticuli in the upper sigmoid an d descending-left colon at and distal to the splenic flexure. There is no evidence of acute divertic ulitis. URINARY BLADDER: There is a catheter in the urinary bladder. There is no associated balloon. The bl adder is not distended. No radiopaque calculi evident in the bladder. REPRODUCTIVE: Prostate and seminal vesicles are not enlarged. No obturator adenopathy. OSSEOUS: No fractures. No lytic osseous lesions. No new blastic osseous lesions identified. Sclero tic foci in size of the pelvic bones lateral to the sacroiliac joints are again noted, unchanged from prior CT scans listed above.. Actually less dense than the CT scan of 04/01/2022.. These are proba susana blastic bone lesions IMPRESSION: 1. Compared to the prior studies the ascites has resolved. There is presently no evidence of ascites . There is also no lymphadenopathy in the abdomen and pelvis. 2. There is splenomegaly again noted although the spleen size is slightly smaller than previous, pres ently measuring 15.6 cm cephalocaudal measurement. Cirrhotic appearing liver again noted with few be nign liver cyst unchanged. 3. Cholelithiasis again noted. No evidence of acute cholecystitis nor dilatation of the biliary tree . 4. Prostate gland size is normal. Seminal vesicles unremarkable. No obturator adenopathy. 5. Catheter again noted in the urinary bladder. The bladder is not distended and does not contain r adiopaque calculi 6. Diverticulosis of the left side of the colon and upper sigmoid but without evidence of acute dive rticulitis. RADIATION DOSE DELIVERED: Total DLP DATA REPOSITORY: All CT scans at this facility are submitted to the National Radiology Data Registry (NRDR) Dose Index Registry (DIR) with the [employer] (ACR). RADIATION OPTIMIZATION: All CT scans at this facility use at least one of these dose optimization te chniques: automated exposure control; mA and/or kV adjustment per patient size (includes targeted exa ms where dose is matched to clinical indication); or iterative reconstruction.
[2023-10-15] MEDS: Barium Sulfate 2% W/V-Berry Smoothie 450 ML BTL PO ×2 (08:14→08:15)
[2023-10-15 08:22] LABS: Estimated GFR 32.51 (mL/min/1.73m2)
== END ==
PROVIDERS: PCP Internal Medicine; Visit Provider Surgery
DX: R10.9 Unspecified abdominal pain (principal); R16.1 Splenomegaly, not elsewhere classified; K74.69 Other cirrhosis of liver; K76.89 Other specified diseases of liver; K80.20 Calculus of gallbladder without cholecystitis without obstruction; K57.30 Diverticulosis of large intestine without perforation or abscess without bleeding; K44.9 Diaphragmatic hernia without obstruction or gangrene; Z01.812 Encounter for preprocedural laboratory examination
CPT/HCPCS: 74176; 82565

== ENCOUNTER 2023-10-18 11:58 | Emergency (ER) | payer MEDICARE, SELFPAY ==
[2023-10-18] VITALS (25 sets, daily range): BP systolic 99–133; BP diastolic 50–71; PULSE 58–86; RESP 13–23; TEMP 36.1; O2SAT 95–100
--- NOTE | 2023-10-18 12:00 | RT.EKG_ITS ---
APPROVED REPORT Exam: Resting ECG Reason for Exam: palpitations Patient Location: E HR:83 bpm ECG Measurements Heart Rate 83 AXIS NM [id number] P [id number] QRSd 138 QRS 89 QT 393 T -30 QTc 461 Conclusion Atrial fibrillation...? atrial activity Nonspecific intraventricular conduction delay...QRSd >115mS, not LBBB/RBBB
[2023-10-18 12:37] LABS: Abs Immature Grans 0.02 10^3/uL (0.0-0.06); Absolute Basophil Count 0.02 10^3/uL (0.0-0.2); Absolute Eosinophil Count 0.11 10^3/uL (0.0-0.7); Absolute Lymphocyte Count 0.38 10^3/uL (1.2-3.4); Absolute Monocyte Count 0.55 10^3/uL (0.1-0.8); Absolute Neutrophil Count 3.44 10^3/uL (1.2-6.7); Basophils % 0.4; Eosinophils % 2.4; HCT 35.2 % (40.0-50.0); HGB 11.6 g/dL (13.5-17.5); Immature Grans % 0.4; Lymphocytes % 8.4; MCH 32.2 pg (27.0-33.0); MCV 98 fL (80-95); MPV 11.7 fL (8.0-11.0); Monocytes % 12.2; Neutrophils % 76.2; RDW 14.4 % (11.8-14.1); RDW-SD 52.1 fL; WBC 4.52 10^3/uL (4.4-10.8)
--- NOTE | 2023-10-18 12:38 | ED.GENADUL_ITS ---
Discharge Plan Disposition Patient Disposition: Home Condition: Stable Discharge Details Clinical Impression: Acute UTI Primary Care Provider: Rudolph Ryan ED Provider: Ginger Levi Home Meds and New Rx's Prescriptions: New cephalexin 500 mg capsule 500 mg PO BID 10 Days Qty: 20 0RF Rx Instructions: Please take 1 tablet twice daily for the next 10 days. Continued acetaminophen [Tylenol] 325 mg capsule 325 mg PO DAILY PRN PRN Rx Instructions: for pain amiodarone 200 mg tablet 200 mg PO DAILY ferrous gluconate [Ferate] 240 mg (27 mg iron) tablet 240 mg PO BID aspirin [Aspir-81] 81 MG tablet,delayed release (DR/EC) 81 mg PO .QOD Patient Comments: 06/14/17 pt last day taking this is 06/17/17 pt aware, DCW losartan 50 MG tablet 50 mg PO DAILY triamcinolone acetonide 0.1 % cream 1 applic TOPICAL DAILY PRN Patient Comments: APPLY TO ABDOMINAL RASH DAILY NEEDED docusate sodium [Colace] 100 mg capsule 200 mg PO DAILY tamsulosin 0.4 mg capsule 0.8 mg PO HS atorvastatin 40 mg tablet 40 mg PO DAILY Patient Comments: TAKE ONE TABLET BY MOUTH DAILY furosemide 40 mg tablet 40 mg PO BID multivitamin Tablet 1 tab PO DAILY ascorbic acid (vitamin C) [Vitamin C] 500 mg Tablet 500 mg PO DAILY dexlansoprazole 60 mg Capsule,Biphase Delayed Releas 60 mg PO DAILY Discharge Instructions Instructions: Urinary Tract Infection in Men (ED) Additional Instructions: It appears you have a urinary tract infection. Please take the antibiotic twice daily with yogurt or probiotic as prescribed. Please take your other medications as previously prescribed. Follow up with primary care provider in 3-5 days. Return to ED sooner if any worsening or concerns. Referrals: Rudolph Ryan [Primary Care Provider] - 3 days HPI General Mode of arrival: wheelchair . Date/Time Provider Initiated Documentation: 10/18/23 12:11 . Limitations to Documentation: no limitations . Information obtained by: patient, family, RN notes reviewed and old records reviewed . HPI Narrative: 82-year-old male presents to the ER with a chief complaint of waking up during the night with sweating, incontinence and numbness in his bilateral arms. Reports symptoms have since resolved however he is feeling generalized weakness. Denies any headache blurry vision. He does have an indwelling Lazo catheter with a leg bag. He does have chronic kidney disease, atrial fibrillation he does take 81 mg aspirin every other day, other history includes congestive heart failure, DC, GERD, thrombocytopenia and iron deficiency anemia. He denies any recent trauma. He reports that he called his PCP and they instructed him to be seen. He did does have a history of a CABG with a bypass graft inguinal hernia surgery. He does appear somewhat pale on upon arrival. Heart rate is 70, blood pressure 119/71. Related Data Home Medications Medication Instructions Recorded Confirmed aspirin 81 mg tablet,delayed 81 mg PO .QOD 12/18/15 10/18/23 release (Aspir-) losartan 50 mg tablet 50 mg PO DAILY 06/12/16 10/18/23 tamsulosin 0.4 mg capsule 0.8 mg PO HS 09/25/20 10/18/23 acetaminophen 325 mg capsule 325 mg PO DAILY PRN PRN 07/10/21 10/18/23 (Tylenol) amiodarone 200 mg tablet 200 mg PO DAILY 07/10/21 10/18/23 ferrous gluconate 240 mg (27 mg 240 mg PO BID 07/27/22 10/18/23 iron) tablet (Ferate) atorvastatin 40 mg tablet 40 mg PO DAILY 08/17/22 10/18/23 ascorbic acid (vitamin C) 500 mg 500 mg PO DAILY 08/31/22 10/18/23 tablet (Vitamin C) dexlansoprazole 60 mg 60 mg PO DAILY 08/31/22 10/18/23 capsule,biphase delayed release multivitamin 1 tab PO DAILY 08/31/22 10/18/23 furosemide 40 mg tablet 40 mg PO BID 04/27/23 10/18/23 triamcinolone acetonide 0.1 % 1 applic topical DAILY PRN 07/19/23 10/18/23 topical cream cephalexin 500 mg capsule 500 mg PO BID Urinary tract 10/18/23 infection 10 days #20 caps docusate sodium 100 mg capsule 200 mg PO DAILY 10/18/23 10/18/23 (Colace) Previous Rx's Medication Instructions Recorded cephalexin 500 mg capsule 500 mg PO BID Urinary tract 10/18/23 infection 10 days #20 caps Allergies Allergy/AdvReac Type Severity Reaction Status Date / Time lisinopril AdvReac Intermediate cough Verified 10/18/23 12:16 spironolactone AdvReac Hyperkalemi Verified 10/18/23 12:16 a General Stated Complaint: GenMedical EUSEBIO: 3 Review of Systems All systems reviewed & are unremarkable except as noted in HPI and below Constitutional Constitutional: Reports as per HPI, Reports excessive sweating and Reports malaise Endocrine Endocrine: Reports excessive sweating Course Vital Signs Vital signs: Vital Signs Temperature 36.1 C L 10/18/23 12:00 Pulse 70 10/18/23 12:00 Respiratory Rate 16 10/18/23 12:00 Blood Pressure 99/54 L 10/18/23 12:00 Pulse Oximetry 99 10/18/23 12:00 Temperature 36.1 C L 10/18/23 12:11 Pulse 70 10/18/23 12:11 Respiratory Rate 23 10/18/23 12:11 Respiratory Effort Normal 10/18/23 12:11 Respiratory Depth Normal 10/18/23 12:11 Respiratory Pattern Normal 10/18/23 12:11 Blood Pressure 99/54 L 10/18/23 12:11 Blood Pressure Position Sitting 10/18/23 12:11 Pulse Oximetry 99 10/18/23 12:11 Oxygen Delivery Method Room Air 10/18/23 12:11 Oxygen Flow Rate 0 10/18/23 12:11 Pain Level 0 10/18/23 12:11 Medical Decision Making 82-year-old male presents to the ER with a chief complaint of waking up during the night with sweating, incontinence and numbness in his bilateral arms. Reports symptoms have since resolved however he is feeling generalized weakness. Denies any headache blurry vision. He does have an indwelling Lazo catheter with a leg bag. He does have chronic kidney disease, atrial fibrillation he does take 81 mg aspirin every other day, other history includes congestive heart failure, DC, GERD, thrombocytopenia and iron deficiency anemia. He denies any recent trauma. He reports that he called his PCP and they instructed him to be seen. He did does have a history of a CABG with a bypass graft inguinal hernia surgery. He does appear somewhat pale on upon arrival. Heart rate is 70, blood pressure 119/71. Workup ordered including CBC CMP, PT PTT, serial troponins, proBNP, urinalysis, and D-dimer. Chest x-ray. EKG was reviewed by Dr. Greer ER attending, old EKG available for review. 1413: Discussed with patient and family results they verbalized understanding. Patient has no chest pain. I did discuss repeat troponin at around 3:00. They would not like to wait for the second blood draw. I did discuss risks and benefits of this. They have opted to be discharged prior to having the second troponin drawn. Patient does have platelets of 88 which is at baseline he does have a history of thrombocytopenia. BUN and creatinine 33 and 1.8 GFR 36. Patient does have a history of chronic kidney disease. Discussed UTI. Will send patient home on antibiotics. This text was generated using [employer] system, please disregard any oddities of phrase or misspellings. Imaging Data Radiologic Study: Imaging: X-Ray Radiologist's impression: XR PORTABLE CHEST AP EXAM: XR PORTABLE CHEST AP CLINICAL HISTORY: Palpitations TECHNIQUE: 2D digital imaging was performed. COMPARISON: CR,XR XR PORTABLE CHEST AP from 04/25/2022 FINDINGS: Exam limited by multiple leads overlying chest. LUNGS: Clear. No pleural abnormality seen. HEART: Markedly enlarged. Mitral valve replacement. Status post CABG. AORTA: Normal diameter. BONES: Unremarkable for age. Sternal wires. Soft tissues: Unremarkable. IMPRESSION: Cardiomegaly. No acute findings. Lab Data Lab results reviewed: Yes I reviewed the patient's lab results. Labs: 10/18/23 12:30 Urine - Reflex from Ua Urine Culture - Pending Laboratory Tests Range/Units 10/18/23 10/18/23 10/18/23 12:22 12:30 15:11 WBC (4.4-10.8) 10^3/uL 4.52 RBC (4.36-5.78) 10^6/uL 3.60 L Hgb (13.5-17.5) g/dL 11.6 L Hct (40.0-50.0) % 35.2 L MCV (80-95) fL 98 H MCH (27.0-33.0) pg 32.2 MCHC (32.0-36.0) % 33.0 RDW (11.8-14.1) % 14.4 H Plt Count (130-400) 10^3/uL 88 L MPV (8.0-11.0) fL 11.7 H Immature Gran % 0.4 Neutrophils % 76.2 Lymphocytes % 8.4 Monocytes % 12.2 Eosinophils % 2.4 Basophils % 0.4 Nucleated RBC % (0.0-0.3) % 0.0 Absolute Neutrophils (1.2-6.7) 10^3/uL 3.44 Absolute Lymphocytes (1.2-3.4) 10^3/uL 0.38 L Absolute Monocytes (0.1-0.8) 10^3/uL 0.55 Absolute Eosinophils (0.0-0.7) 10^3/uL 0.11 Absolute Basophils (0.0-0.2) 10^3/uL 0.02 PT (9.1-11.1) sec 11.3 H INR (0.9-1.1) 1.1 APTT (23.6-32.8) sec 28.1 D-Dimer (<500) ng/mlFEU 852 H Sodium (136-145) mmol/L 137 Potassium (3.5-5.1) mmol/L 3.9 Chloride (98-107) mmol/L 99 Carbon Dioxide (21.0-32.0) mmol/L 32.1 H Anion Gap (3-11) mmol/L 5.9 BUN (7-18) mg/dL 33 H Creatinine (0.70-1.30) mg/dL 1.8 H Est GFR (CKD-EPI 2020) (mL/min/1.73m2) 36.89 Glucose (74-106) mg/dL 83 Calcium (8.5-10.1) mg/dL 8.7 Magnesium (1.8-2.4) mg/dL 2.5 H Total Bilirubin (0.2-1.0) mg/dL 0.9 AST (15-37) U/L 40 H ALT (16-63) U/L 38 Alkaline Phosphatase (46-116) U/L 93 Troponin I (< or =60) ng/L < 50 Cancelled NT-Pro-B Natriuret Pep (<300) pg/mL 763 H Total Protein (6.4-8.2) g/dL 7.8 Albumin (3.4-5.0) g/dL 4.5 Urine Color (Yellow) Yellow Urine Clarity (Clear) Sl Cloudy Urine pH (5-8) 7.5 Ur Specific [place] (1.005-1.025) 1.020 Urine Protein (Neg-Trace) mg/dL 100 H Urine Ketones (Negative) mg/dL Negative Urine Blood (Negative) Moderate H Urine Nitrite (Negative) Positive H Urine Bilirubin (Negative) Negative Urine Urobilinogen (Up to 0.2) mg/dL 0.2 Ur Leukocyte Esterase (Negative) Small H Urine RBC (0-2) HPF 20-50 H Urine WBC (0-5) HPF 10-20 H Ur Epithelial Cells (Negative) HPF Rare Urine Crystals (Negative) HPF Moderate Triple Phos Urine Bacteria (Negative) HPF Many Urine Casts (Negative) LPF Negative Urine Mucus (Negative) Negative Ur Culture Indicated? Yes Urine Glucose (Negative) mg/dL Negative Quality:SDOH Health Related Social Needs: No Data to Display PFSH All Active Problems (Updated 10/18/23 @ 14:15 by Ginger Levi NP) Acute UTI (Acute) Catheter-associated urinary tract infection (Acute) Umbilical hernia (Acute) Left inguinal hernia (Acute) Cirrhosis (Chronic) Paroxysmal atrial fibrillation (Chronic) Incarcerated right inguinal hernia (Acute) Tricuspid regurgitation (Acute) BPH (benign prostatic hyperplasia) (Chronic) Acute urinary retention (Acute) Prostate cancer (Chronic) Bone metastasis (Acute) Ventricular tachycardia (Chronic) Coronary artery disease (Chronic) NSTEMI (non-ST elevated myocardial infarction) (Acute) Anemia (Chronic) Thrombocytopenia (Chronic) Ventricular tachycardia (Chronic) Cardiomyopathy (Acute) Abdominal distention (Acute) Screening for colon cancer (Acute) Fatigue (Acute) DNR (do not resuscitate) (Acute) COVID-19 (Acute) Ascites (Chronic) Medical History Gross hematuria Thrombocytopenia Iron deficiency anemia Inguinal hernia, recurrent Leg cramps Chronic kidney disease A-fib Congestive heart failure Lateral femoral cutaneous entrapment syndrome Myocardial infarct Nail disorder Jaundice Rectal bleeding Pain, joint, knee, left Ascites Nocturnal leg cramps Cor pulmonale Cardiorenal syndrome Corns and callus Bladder outlet obstruction Cholelithiasis Inguinal hernia GERD (gastroesophageal reflux disease) Hx of congestive heart failure History of alcohol abuse Overweight Hyperlipidemia Anemia Anticoagulation adequate Hx of myocardial infarction 2007 Surgical History Hx of cystoscopy Hx of colonoscopy Hx of cataract surgery Hx of inguinal hernia surgery Hx of CABG S/P CABG (coronary artery bypass graft) 2009 Social History Smoking/Tobacco Use Status: Former Tobacco Use Quit Date: 07/12/89 Tobacco: How many years used: 15 Smoking risk assessment performed?: Yes Alcohol Intake: former Drug use: Never Substance use type: does not use Housing: house Do you feel safe at home: Yes Do you feel safe in your relationship?: Yes
[2023-10-18 12:45] LABS: Bilirubin Negative (Negative); Blood Moderate (Negative); Clarity Sl Cloudy (Clear); Glucose Negative (Negative); Ketones Negative (Negative); Leukocyte Esterase Small (Negative); Nitrite Positive (Negative); Urobilinogen 0.2 mg/dL (Up to 0.2); pH 7.5 (5-8)
[2023-10-18 12:49] LABS: INR 1.1 (0.9-1.1); PTT Activated 28.1 sec (23.6-32.8); Prothrombin Time 11.3 sec (9.1-11.1)
--- NOTE | 2023-10-18 12:50 | DI.RAD_ITS ---
Exam(s) XR PORTABLE CHEST AP EXAM: XR PORTABLE CHEST AP CLINICAL HISTORY: Palpitations TECHNIQUE: 2D digital imaging was performed. COMPARISON: CR,XR XR PORTABLE CHEST AP from 04/25/2022 FINDINGS: Exam limited by multiple leads overlying chest. LUNGS: Clear. No pleural abnormality seen. HEART: Markedly enlarged. Mitral valve replacement. Status post CABG. AORTA: Normal diameter. BONES: Unremarkable for age. Sternal wires. Soft tissues: Unremarkable. IMPRESSION: Cardiomegaly. No acute findings. DATA REPOSITORY: RADIATION DOSE DELIVERED:
[2023-10-18 12:56] LABS: Bacteria Many HPF (Negative); C & S Indicated? Yes; Casts Negative LPF (Negative); Crystals Moderate Triple Phos HPF (Negative); Epithelial Cells Rare HPF (Negative); Mucus Negative (Negative); RBC 20-50 HPF (0-2)
[2023-10-18 12:58] LABS: ALT 38 U/L (16-63); AST 40 U/L (15-37); Albumin 4.5 g/dL (3.4-5.0); Alkaline Phosphatase 93 U/L (46-116); Anion Gap 5.9 mmol/L (3-11); BUN 33 mg/dL (7-18); Bilirubin, Total 0.9 mg/dL (0.2-1.0); CO2 32.1 mmol/L (21.0-32.0); CREATININE 1.8 mg/dL (0.70-1.30); Calcium 8.7 mg/dL (8.5-10.1); Chloride 99 mmol/L (98-107); Estimated GFR 36.89 (mL/min/1.73m2); Glucose 83 mg/dL (74-106); Magnesium 2.5 mg/dL (1.8-2.4); NT-proBNP 763 pg/mL (<300); Potassium 3.9 mmol/L (3.5-5.1); Sodium 137 mmol/L (136-145); Total Protein 7.8 g/dL (6.4-8.2); Troponin I < 50 ng/L (< or =60)
[2023-10-18 13:04] LABS: D-Dimer 852 ng/mlFEU (<500)
[2023-10-18 13:37] LABS: Platelet Count 88 10^3/uL (130-400)
[2023-10-18] MEDS: cefTRIAXone 1 GM/50 ML BAG IVPB (14:00)
== END 2023-10-18 14:41 | disposition home or self-care (01) ==
PROVIDERS: Emergency Provider Registered Nurse Emergency; PCP Internal Medicine
DX: N39.0 Urinary tract infection, site not specified (principal); I13.0 Hypertensive heart and chronic kidney disease with heart failure and stage 1 through stage 4 chronic kidney disease, or unspecified chronic kidney disease; I50.9 Heart failure, unspecified; N18.9 Chronic kidney disease, unspecified; I25.2 Old myocardial infarction; I48.0 Paroxysmal atrial fibrillation; R94.31 Abnormal electrocardiogram [ECG] [EKG]; Z79.82 Long term (current) use of aspirin; Z96.0 Presence of urogenital implants; Z87.891 Personal history of nicotine dependence
CPT/HCPCS: 36415; 80053; 93005; 96365; 99285; 71045; 81003; 81015; 83735; 83880; 84484; 85025; 85379; 85610; 85730; 87086; 93010; 99284; J0696

== ENCOUNTER 2023-10-19 04:41 | Outpatient (CLI) | payer MEDICARE, SELFPAY ==
[2023-10-19 14:24] LABS: Abs Immature Grans 0.02 10^3/uL (0.0-0.06); Absolute Basophil Count 0.02 10^3/uL (0.0-0.2); Absolute Lymphocyte Count 0.28 10^3/uL (1.2-3.4); Absolute Monocyte Count 0.38 10^3/uL (0.1-0.8); Absolute Neutrophil Count 3.35 10^3/uL (1.2-6.7); Basophils % 0.5; Eosinophils % 2.4; HCT 33.1 % (40.0-50.0); HGB 10.8 g/dL (13.5-17.5); Immature Grans % 0.5; Lymphocytes % 6.7; MCH 31.8 pg (27.0-33.0); MCHC 32.6 % (32.0-36.0); MCV 97 fL (80-95); MPV 11.8 fL (8.0-11.0); Monocytes % 9.2; Neutrophils % 80.7; RDW 14.5 % (11.8-14.1); RDW-SD 51.9 fL; WBC 4.15 10^3/uL (4.4-10.8)
[2023-10-19 14:31] LABS: ALT 34 U/L (16-63); AST 36 U/L (15-37); Albumin 4.2 g/dL (3.4-5.0); Alkaline Phosphatase 87 U/L (46-116); Anion Gap 9.6 mmol/L (3-11); BUN 34 mg/dL (7-18); Bilirubin, Total 0.8 mg/dL (0.2-1.0); CO2 29.4 mmol/L (21.0-32.0); Calcium 8.6 mg/dL (8.5-10.1); Chloride 102 mmol/L (98-107); Estimated GFR 32.51 (mL/min/1.73m2); Glucose 116 mg/dL (74-106); Potassium 4.1 mmol/L (3.5-5.1); Sodium 141 mmol/L (136-145); Total Protein 7.2 g/dL (6.4-8.2)
[2023-10-19 14:48] LABS: Diff Comment Diff Reviewed; Platelet Count 87 10^3/uL (130-400); RBC Morphology Normal
[2023-10-20 16:37] LABS: PSA, Ultrasensitive 0.04 ng/mL (<= 7.2)
[2023-10-24 15:25] LABS: Testosterone, Total <7.0 ng/dL (240-950)
== END 2023-10-19 04:42 | disposition home or self-care (01) ==
PROVIDERS: PCP Internal Medicine; Visit Provider Internal Medicine
DX: C61 Malignant neoplasm of prostate (principal)
CPT/HCPCS: 36415; 80053; 84153; 84403; 85025

== ENCOUNTER 2023-10-25 21:13 | Emergency (ER) | payer MEDICARE, SELFPAY ==
[2023-10-25] VITALS (7 sets, daily range): BP systolic 118–146; BP diastolic 50–91; PULSE 82–98; RESP 20; TEMP 36.6; O2SAT 95–99
[2023-10-25] MEDS: Lidocaine 2% Jelly 11 ML SYR UR (21:54)
[2023-10-25 22:46] LABS: Bilirubin Negative (Negative); Blood Large (Negative); Clarity Sl Cloudy (Clear); Glucose Negative (Negative); Ketones Negative (Negative); Leukocyte Esterase Small (Negative); Nitrite Negative (Negative); Specific Gravity 1.025 (1.005-1.025); pH 8.5 (5-8)
[2023-10-25 22:50] LABS: Bacteria Few HPF (Negative); C & S Indicated? Yes; Crystals Negative HPF (Negative); Epithelial Cells Negative HPF (Negative); Mucus Negative (Negative); Other Cells Rare Transitional (Negative); RBC >50 HPF (0-2)
--- NOTE | 2023-10-25 22:55 | ED.GENADUL_ITS ---
Discharge Plan Disposition Patient Disposition: Home Condition: Stable Discharge Details Clinical Impression: Dysuria, Abdominal pain Primary Care Provider: Rudolph Ryan ED Provider: Ariella Ortega Home Meds and New Rx's Prescriptions: New phenazopyridine [Pyridium] 100 mg tablet 100 mg PO BID Qty: 6 0RF Continued acetaminophen [Tylenol] 325 mg capsule 325 mg PO DAILY PRN PRN Rx Instructions: for pain amiodarone 200 mg tablet 200 mg PO DAILY ferrous gluconate [Ferate] 240 mg (27 mg iron) tablet 240 mg PO BID aspirin [Aspir-81] 81 MG tablet,delayed release (DR/EC) 81 mg PO .QOD Patient Comments: 06/14/17 pt last day taking this is 06/17/17 pt aware, DCW losartan 50 MG tablet 50 mg PO DAILY triamcinolone acetonide 0.1 % cream 1 applic TOPICAL DAILY PRN Patient Comments: APPLY TO ABDOMINAL RASH DAILY NEEDED docusate sodium [Colace] 100 mg capsule 200 mg PO DAILY cephalexin 500 mg capsule 500 mg PO BID 10 Days Qty: 20 0RF Rx Instructions: Please take 1 tablet twice daily for the next 10 days. tamsulosin 0.4 mg capsule 0.8 mg PO HS atorvastatin 40 mg tablet 40 mg PO DAILY Patient Comments: TAKE ONE TABLET BY MOUTH DAILY furosemide 40 mg tablet 40 mg PO BID multivitamin Tablet 1 tab PO DAILY ascorbic acid (vitamin C) [Vitamin C] 500 mg Tablet 500 mg PO DAILY dexlansoprazole 60 mg Capsule,Biphase Delayed Releas 60 mg PO DAILY Discharge Instructions Instructions: Dysuria (ED), Abdominal Pain (ED) Additional Instructions: Follow-up with Dr. Lazcano tomorrow Increase your fluids eight 8 ounce glasses of water daily Take Tylenol 650 every 4 hours as needed for pain You may take the Pyridium as needed, this will likely turn your urine orange and your secretions orange, do not be alarmed Do not take more of this medication than as prescribed as it can make you very sick Please return earlier should you have fever, chills, or with any new or worsening complaints Complete your course of ciprofloxacin Referrals: Gasper Lazcano MD [ [facility] STAFF PHYSICIAN] - 1 day HPI General Date/Time Provider Initiated Documentation: 10/25/23 21:18 . HPI Narrative: This 82-year-old male medical history of atrial fibrillation prostate cancer with chronic indwelling Lazo status post bladder cystoscopy and irrigation on 07 October presents with report of suprapubic and penile pain for the course of the past 3 days. States he is having in the past with Lazo catheter irritation and has seen Dr. Lazcano for this. He denies any fever or chills. He denies any weakness. He has not had much output today per patient. He has had some flow of urine around the catheter which concerned him. He denies any nausea or vomiting or any additional complaints at this time. Related Data Home Medications Medication Instructions Recorded Confirmed aspirin 81 mg tablet,delayed 81 mg PO .QOD 12/18/15 10/25/23 release (Aspir-) losartan 50 mg tablet 50 mg PO DAILY 06/12/16 10/25/23 tamsulosin 0.4 mg capsule 0.8 mg PO HS 09/25/20 10/25/23 acetaminophen 325 mg capsule 325 mg PO DAILY PRN PRN 07/10/21 10/25/23 (Tylenol) amiodarone 200 mg tablet 200 mg PO DAILY 07/10/21 10/25/23 ferrous gluconate 240 mg (27 mg 240 mg PO BID 07/27/22 10/25/23 iron) tablet (Ferate) atorvastatin 40 mg tablet 40 mg PO DAILY 08/17/22 10/25/23 ascorbic acid (vitamin C) 500 mg 500 mg PO DAILY 08/31/22 10/25/23 tablet (Vitamin C) dexlansoprazole 60 mg 60 mg PO DAILY 08/31/22 10/25/23 capsule,biphase delayed release multivitamin 1 tab PO DAILY 08/31/22 10/25/23 furosemide 40 mg tablet 40 mg PO BID 04/27/23 10/25/23 triamcinolone acetonide 0.1 % 1 applic topical DAILY PRN 07/19/23 10/25/23 topical cream cephalexin 500 mg capsule 500 mg PO BID Urinary tract 10/18/23 10/25/23 infection 10 days #20 caps docusate sodium 100 mg capsule 200 mg PO DAILY 10/18/23 10/25/23 (Colace) phenazopyridine 100 mg tablet 100 mg PO BID 6 doses #6 tabs 10/25/23 (Pyridium) Previous Rx's Medication Instructions Recorded cephalexin 500 mg capsule 500 mg PO BID Urinary tract 10/18/23 infection 10 days #20 caps phenazopyridine 100 mg tablet 100 mg PO BID 6 doses #6 tabs 10/25/23 (Pyridium) Allergies Allergy/AdvReac Type Severity Reaction Status Date / Time lisinopril AdvReac Intermediate cough Verified 10/25/23 21:28 spironolactone AdvReac Hyperkalemi Verified 10/25/23 21:28 a General Stated Complaint: Urinary EUSEBIO: 3 Course Vital Signs Vital signs: Vital Signs Temperature 36.6 C 10/25/23 21:20 Pulse 98 H 10/25/23 21:20 Respiratory Rate 20 10/25/23 21:20 Blood Pressure 146/77 H 10/25/23 21:20 Pulse Oximetry 98 10/25/23 21:20 Temperature 36.6 C 10/25/23 21:37 Temperature Source Oral 10/25/23 21:37 Pulse 82 10/25/23 21:37 Respiratory Rate 20 10/25/23 21:37 Respiratory Effort Normal, Non-Labored 10/25/23 21:27 Blood Pressure 134/91 H 10/25/23 21:37 Blood Pressure Position Left Lateral 10/25/23 21:37 Pulse Oximetry 98 10/25/23 21:37 Oxygen Delivery Method Room Air 10/25/23 21:37 Pain Level 2 10/25/23 21:37 Comment patient reported the pain fluctuates between a 2-04/2010/25/23 21:20 Lab/Test Results Lab/Test Results: 10/25/23 22:27 Urine - Reflex from Ua Urine Culture - Pending Laboratory Tests Range/Units 10/25/23 22:27 Urine Color (Yellow) Yellow Urine Clarity (Clear) Sl Cloudy Urine pH (5-8) 8.5 H Ur Specific [place] (1.005-1.025) 1.025 Urine Protein (Neg-Trace) mg/dL >=300 H Urine Ketones (Negative) mg/dL Negative Urine Blood (Negative) Large H Urine Nitrite (Negative) Negative Urine Bilirubin (Negative) Negative Urine Urobilinogen (Up to 0.2) mg/dL 1.0 H Ur Leukocyte Esterase (Negative) Small H Urine RBC (0-2) HPF >50 H Urine WBC (0-5) HPF 10-20 H Ur Epithelial Cells (Negative) HPF Negative Urine Crystals (Negative) HPF Negative Urine Bacteria (Negative) HPF Few Urine Mucus (Negative) Negative Urine Other (Negative) Rare Transitional Ur Culture Indicated? Yes Urine Glucose (Negative) mg/dL Negative Medical Decision Making This 82-year-old male is presenting with suprapubic tenderness and penile tenderness, status post post bladder irrigation and cystoscopy on October 07, did have CT scan on 14 October which did not show acute abnormality Was evaluated on the and diagnosed with a urinary tract infection has been taking Cipro since that time Lazo catheter is in place on exam, mild suprapubic tenderness, visible evidence of trauma, no abdominal tenderness, mild suprapubic tenderness, no CVA tenderness, alert and oriented x 4, nontoxic in appearance Prior creatinine 1.8, baseline for patient, will reassess Patient states the pain is gradually worsened over the past 3 days. He denies any additional complaints and has no signs of systemic illness His vitals are stable Lazo catheter was changed and patient has not had any relief, nor has there been significant urinary output and bladder scan shows 0 to 4 cc, will hydrate with 500 cc of fluid, ejection fraction on last echo was 30 to 40% so we will use fluids cautiously Will give Tylenol IV and 100 mg of Pyridium to see if pain is improved check some basic blood work At this time I do not think patient needs any change in antibiotic as his urinalysis is improving and he has a chronic indwelling Lazo, he will likely need urology follow-up this week for reassessment Quality:SDOH Health Related Social Needs: No Data to Display PFSH All Active Problems (Updated 10/25/23 @ 23:00 by MARIUSZ Urban) Abdominal pain (Acute) Dysuria (Acute) Acute UTI (Acute) Catheter-associated urinary tract infection (Acute) Umbilical hernia (Acute) Left inguinal hernia (Acute) Cirrhosis (Chronic) Paroxysmal atrial fibrillation (Chronic) Incarcerated right inguinal hernia (Acute) Tricuspid regurgitation (Acute) BPH (benign prostatic hyperplasia) (Chronic) Acute urinary retention (Acute) Prostate cancer (Chronic) Bone metastasis (Acute) Ventricular tachycardia (Chronic) Coronary artery disease (Chronic) NSTEMI (non-ST elevated myocardial infarction) (Acute) Anemia (Chronic) Thrombocytopenia (Chronic) Ventricular tachycardia (Chronic) Cardiomyopathy (Acute) Abdominal distention (Acute) Screening for colon cancer (Acute) Fatigue (Acute) DNR (do not resuscitate) (Acute) COVID-19 (Acute) Ascites (Chronic) Medical History Gross hematuria Thrombocytopenia Iron deficiency anemia Inguinal hernia, recurrent Leg cramps Chronic kidney disease A-fib Congestive heart failure Lateral femoral cutaneous entrapment syndrome Myocardial infarct Nail disorder Jaundice Rectal bleeding Pain, joint, knee, left Ascites Nocturnal leg cramps Cor pulmonale Cardiorenal syndrome Corns and callus Bladder outlet obstruction Cholelithiasis Inguinal hernia GERD (gastroesophageal reflux disease) Hx of congestive heart failure History of alcohol abuse Overweight Hyperlipidemia Anemia Anticoagulation adequate Hx of myocardial infarction 2007 Surgical History Hx of cystoscopy Hx of colonoscopy Hx of cataract surgery Hx of inguinal hernia surgery Hx of CABG S/P CABG (coronary artery bypass graft) 2009 Social History Smoking/Tobacco Use Status: Former Tobacco Use Quit Date: 07/12/89 Tobacco: How many years used: 15 Smoking risk assessment performed?: Yes Alcohol Intake: former Drug use: Never Substance use type: does not use Housing: house Do you feel safe at home: Yes Do you feel safe in your relationship?: Yes
[2023-10-25 23:11] LABS: Abs Immature Grans 0.01 10^3/uL (0.0-0.06); Absolute Basophil Count 0.02 10^3/uL (0.0-0.2); Absolute Eosinophil Count 0.12 10^3/uL (0.0-0.7); Absolute Lymphocyte Count 0.36 10^3/uL (1.2-3.4); Absolute Neutrophil Count 2.84 10^3/uL (1.2-6.7); Basophils % 0.5; Eosinophils % 3.2; HCT 31.9 % (40.0-50.0); HGB 10.6 g/dL (13.5-17.5); Immature Grans % 0.3; Lymphocytes % 9.6; MCH 32.1 pg (27.0-33.0); MCHC 33.2 % (32.0-36.0); MCV 97 fL (80-95); MPV 12.1 fL (8.0-11.0); Monocytes % 10.7; Neutrophils % 75.7; RDW 14.4 % (11.8-14.1); RDW-SD 50.9 fL; WBC 3.75 10^3/uL (4.4-10.8)
[2023-10-25] MEDS: Phenazopyridine 100 MG TAB PO (23:16)
[2023-10-25] MEDS: Normal Saline 1,000 ML 500 ML IV (23:18)
[2023-10-25 23:19] LABS: Anion Gap 6.2 mmol/L (3-11); BUN 39 mg/dL (7-18); CO2 32.8 mmol/L (21.0-32.0); CREATININE 2.3 mg/dL (0.70-1.30); Calcium 8.8 mg/dL (8.5-10.1); Chloride 102 mmol/L (98-107); Estimated GFR 27.49 (mL/min/1.73m2); Glucose 105 mg/dL (74-106); Potassium 5.1 mmol/L (3.5-5.1); Sodium 141 mmol/L (136-145)
[2023-10-25 23:24] LABS: Platelet Count 69 10^3/uL (130-400)
--- NOTE | 2023-10-25 23:33 | ED.PROG_ITS ---
Date of service: 10/25/23 Time of Service: 23:00 Medical Decision Making This patient was signed out to me. Please see previous notes for H&P and intiial eval. In brief, 82yo M with chronic indwelling elkins presenting with lower abdominal pain, pain in penis when urine leaks around elkins. Does have a diagnosis of bladder spasms, currently being treated for UTI. UA appears to be improving. Elkins was replaced, still having some pain; medicated. Signed out pending CBC, BMP, and reassessment. Labs reviewed as below, CBC reassuring with Hg at baseline, BMP also reassuring with Cr at baseline on [facility] record review. On reassessment he reports his pain has improved. Abdomen is soft and non- tender to palpation. Advised him to followup with Dr. Lazcano. Discharged home; discharge instructions and return precautions reviewed with patient and family who verbalized understanding. All questions were answered and they are in full agreement with the plan. Lab Data Lab results reviewed: Yes I reviewed the patient's lab results. Labs: 10/25/23 22:27 Urine - Reflex from Ua Urine Culture - Pending Laboratory Tests Range/Units 10/25/23 10/25/23 22:27 23:05 WBC (4.4-10.8) 10^3/uL 3.75 L RBC (4.36-5.78) 10^6/uL 3.30 L Hgb (13.5-17.5) g/dL 10.6 L Hct (40.0-50.0) % 31.9 L MCV (80-95) fL 97 H MCH (27.0-33.0) pg 32.1 MCHC (32.0-36.0) % 33.2 RDW (11.8-14.1) % 14.4 H Plt Count (130-400) 10^3/uL 69 L MPV (8.0-11.0) fL 12.1 H Immature Gran % 0.3 Neutrophils % 75.7 Lymphocytes % 9.6 Monocytes % 10.7 Eosinophils % 3.2 Basophils % 0.5 Nucleated RBC % (0.0-0.3) % 0.0 Absolute Neutrophils (1.2-6.7) 10^3/uL 2.84 Absolute Lymphocytes (1.2-3.4) 10^3/uL 0.36 L Absolute Monocytes (0.1-0.8) 10^3/uL 0.40 Absolute Eosinophils (0.0-0.7) 10^3/uL 0.12 Absolute Basophils (0.0-0.2) 10^3/uL 0.02 Sodium (136-145) mmol/L 141 Potassium (3.5-5.1) mmol/L 5.1 Chloride (98-107) mmol/L 102 Carbon Dioxide (21.0-32.0) mmol/L 32.8 H Anion Gap (3-11) mmol/L 6.2 BUN (7-18) mg/dL 39 H Creatinine (0.70-1.30) mg/dL 2.3 H Est GFR (CKD-EPI 2020) (mL/min/1.73m2) 27.49 Glucose (74-106) mg/dL 105 Calcium (8.5-10.1) mg/dL 8.8 Urine Color (Yellow) Yellow Urine Clarity (Clear) Sl Cloudy Urine pH (5-8) 8.5 H Ur Specific [place] (1.005-1.025) 1.025 Urine Protein (Neg-Trace) mg/dL >=300 H Urine Ketones (Negative) mg/dL Negative Urine Blood (Negative) Large H Urine Nitrite (Negative) Negative Urine Bilirubin (Negative) Negative Urine Urobilinogen (Up to 0.2) mg/dL 1.0 H Ur Leukocyte Esterase (Negative) Small H Urine RBC (0-2) HPF >50 H Urine WBC (0-5) HPF 10-20 H Ur Epithelial Cells (Negative) HPF Negative Urine Crystals (Negative) HPF Negative Urine Bacteria (Negative) HPF Few Urine Mucus (Negative) Negative Urine Other (Negative) Rare Transitional Ur Culture Indicated? Yes Urine Glucose (Negative) mg/dL Negative Quality:SDOH Health Related Social Needs: No Data to Display Sign Out Sign Out Data: Sign Out Comment: pending fluids, labs, pyridium, and reassessment/dispo Last updated by Ariella Ortega PA at 10/25/23 23:13 Discharge Plan Disposition Patient Disposition: Home Condition: Stable Discharge Details Clinical Impression: Dysuria, Abdominal pain Primary Care Provider: Rudolph Ryan ED Provider: Lorrie Mcclelland Home Meds and New Rx's Prescriptions: New phenazopyridine [Pyridium] 100 mg tablet 100 mg PO BID Qty: 6 0RF Continued acetaminophen [Tylenol] 325 mg capsule 325 mg PO DAILY PRN PRN Rx Instructions: for pain amiodarone 200 mg tablet 200 mg PO DAILY ferrous gluconate [Ferate] 240 mg (27 mg iron) tablet 240 mg PO BID aspirin [Aspir-81] 81 MG tablet,delayed release (DR/EC) 81 mg PO .QOD Patient Comments: 06/14/17 pt last day taking this is 06/17/17 pt aware, DCW losartan 50 MG tablet 50 mg PO DAILY triamcinolone acetonide 0.1 % cream 1 applic TOPICAL DAILY PRN Patient Comments: APPLY TO ABDOMINAL RASH DAILY NEEDED docusate sodium [Colace] 100 mg capsule 200 mg PO DAILY cephalexin 500 mg capsule 500 mg PO BID 10 Days Qty: 20 0RF Rx Instructions: Please take 1 tablet twice daily for the next 10 days. tamsulosin 0.4 mg capsule 0.8 mg PO HS atorvastatin 40 mg tablet 40 mg PO DAILY Patient Comments: TAKE ONE TABLET BY MOUTH DAILY furosemide 40 mg tablet 40 mg PO BID multivitamin Tablet 1 tab PO DAILY ascorbic acid (vitamin C) [Vitamin C] 500 mg Tablet 500 mg PO DAILY dexlansoprazole 60 mg Capsule,Biphase Delayed Releas 60 mg PO DAILY Discharge Instructions Instructions: Dysuria (ED), Abdominal Pain (ED) Additional Instructions: Follow-up with Dr. Lazcano tomorrow Increase your fluids eight 8 ounce glasses of water daily Take Tylenol 650 every 4 hours as needed for pain You may take the Pyridium as needed, this will likely turn your urine orange and your secretions orange, do not be alarmed Do not take more of this medication than as prescribed as it can make you very sick Please return earlier should you have fever, chills, or with any new or worsening complaints Complete your course of ciprofloxacin Referrals: Gasper Lazcano MD [ [facility] STAFF PHYSICIAN] - 1 day
[2023-10-26 00:27] VITALS: BP 117/60; PULSE 73; RESP 18; TEMP 36.6; O2SAT 98
== END 2023-10-26 00:42 | disposition home or self-care (01) ==
PROVIDERS: Physician Assistant; Emergency Provider Student in an Organized Health Care Education/Training Program; PCP Internal Medicine
DX: T83.84XA Pain due to genitourinary prosthetic devices, implants and grafts, initial encounter (principal); I11.0 Hypertensive heart disease with heart failure; I50.9 Heart failure, unspecified; I25.2 Old myocardial infarction; I48.0 Paroxysmal atrial fibrillation; Z95.1 Presence of aortocoronary bypass graft; Z79.82 Long term (current) use of aspirin; Z85.46 Personal history of malignant neoplasm of prostate
CPT/HCPCS: 00123; 80048; 99284; 81003; 81015; 85025; 87086; J0131

== ENCOUNTER → 2023-10-26 10:57 | Outpatient (BNVA) | payer MEDICARE, SELFPAY | PROVIDERS: PCP Internal Medicine; Visit Provider Internal Medicine Cardiovascular Disease | DX: I25.810 Atherosclerosis of coronary artery bypass graft(s) without angina pectoris (principal); I25.5 Ischemic cardiomyopathy; I42.9 Cardiomyopathy, unspecified; I21.4 Non-ST elevation (NSTEMI) myocardial infarction; I07.1 Rheumatic tricuspid insufficiency; I25.10 Atherosclerotic heart disease of native coronary artery without angina pectoris; I48.0 Paroxysmal atrial fibrillation; Z98.890 Other specified postprocedural states; I48.91 Unspecified atrial fibrillation | CPT/HCPCS: 99213 ==

== ENCOUNTER 2023-11-07 20:31 | Emergency (ER) | payer MEDICARE, SELFPAY ==
[2023-11-07] VITALS (8 sets, daily range): BP systolic 119–132; BP diastolic 61–76; PULSE 81–90; RESP 14–16; TEMP 36.6–36.7; O2SAT 94–100
--- NOTE | 2023-11-07 20:46 | ED.GENADUL_ITS ---
Discharge Plan Discharge Details Chief Complaint: Urinary Primary Care Provider: Rudolph Ryan ED Provider: Luis Youssef Home Meds and New Rx's Prescriptions: No Action acetaminophen [Tylenol] 325 mg capsule 325 mg PO DAILY PRN PRN Rx Instructions: for pain amiodarone 200 mg tablet 200 mg PO DAILY ferrous gluconate [Ferate] 240 mg (27 mg iron) tablet 240 mg PO BID aspirin [Aspir-81] 81 MG tablet,delayed release (DR/EC) 81 mg PO .QOD Patient Comments: 06/14/17 pt last day taking this is 06/17/17 pt aware, DCW losartan 50 MG tablet 50 mg PO DAILY triamcinolone acetonide 0.1 % cream 1 applic TOPICAL DAILY PRN Patient Comments: APPLY TO ABDOMINAL RASH DAILY NEEDED docusate sodium [Colace] 100 mg capsule 200 mg PO DAILY phenazopyridine [Pyridium] 100 mg tablet 100 mg PO BID Qty: 6 0RF tamsulosin 0.4 mg capsule 0.8 mg PO HS atorvastatin 40 mg tablet 40 mg PO DAILY Patient Comments: TAKE ONE TABLET BY MOUTH DAILY furosemide 40 mg tablet 40 mg PO BID multivitamin Tablet 1 tab PO DAILY ascorbic acid (vitamin C) [Vitamin C] 500 mg Tablet 500 mg PO DAILY dexlansoprazole 60 mg Capsule,Biphase Delayed Releas 60 mg PO DAILY HPI General Date/Time Provider Initiated Documentation: 11/07/23 20:46 . HPI Narrative: [ ] year-old [ ] presents to ED today by [ ] with a chief complaint of [ ] with onset [ ]. Quality described as [ ], [ ] radiation to [ ]. Severity is described as [ ]/10. Palliating factors include [ ]. Provoking factors include [ ]. Events leading up to the incident/Associated Symptoms: [ ]. Patient [ ] anticoagulated. Related Data Home Medications Medication Instructions Recorded Confirmed aspirin 81 mg tablet,delayed 81 mg PO .QOD 12/18/15 10/26/23 release (Aspir-) losartan 50 mg tablet 50 mg PO DAILY 06/12/16 10/26/23 tamsulosin 0.4 mg capsule 0.8 mg PO HS 09/25/20 10/26/23 acetaminophen 325 mg capsule 325 mg PO DAILY PRN PRN 07/10/21 10/26/23 (Tylenol) amiodarone 200 mg tablet 200 mg PO DAILY 07/10/21 10/26/23 ferrous gluconate 240 mg (27 mg 240 mg PO BID 07/27/22 10/26/23 iron) tablet (Ferate) atorvastatin 40 mg tablet 40 mg PO DAILY 08/17/22 10/26/23 ascorbic acid (vitamin C) 500 mg 500 mg PO DAILY 08/31/22 10/26/23 tablet (Vitamin C) dexlansoprazole 60 mg 60 mg PO DAILY 08/31/22 10/26/23 capsule,biphase delayed release multivitamin 1 tab PO DAILY 08/31/22 10/26/23 furosemide 40 mg tablet 40 mg PO BID 04/27/23 10/26/23 triamcinolone acetonide 0.1 % 1 applic topical DAILY PRN 07/19/23 10/26/23 topical cream docusate sodium 100 mg capsule 200 mg PO DAILY 10/18/23 10/26/23 (Colace) phenazopyridine 100 mg tablet 100 mg PO BID 6 doses #6 tabs 10/25/23 10/26/23 (Pyridium) Previous Rx's Medication Instructions Recorded phenazopyridine 100 mg tablet 100 mg PO BID 6 doses #6 tabs 10/25/23 (Pyridium) Allergies Allergy/AdvReac Type Severity Reaction Status Date / Time lisinopril AdvReac Intermediate cough Verified 10/25/23 21:28 spironolactone AdvReac Hyperkalemi Verified 10/25/23 21:28 a General Stated Complaint: Urinary EUSEBIO: 3 Review of Systems All systems reviewed & are unremarkable except as noted in HPI and below Exam Narrative Exam Narrative: GENERAL APPEARANCE: Well-nourished, non-toxic, awake and alert, atraumatic, no acute distress. SKIN: Warm, pink, dry, intact, without rashes/lesions/ulcerations. HEAD: Normocephalic, atraumatic, normal hair distribution for gender/age. EYES: Pupils PERRLA, EOMs intact without nystagmus, normal conjunctiva, no exudates on lids/lashes. ENT: Nares patent, no circumoral cyanosis, no facial swelling NECK: Supple, trachea midline, painless cervical ROM. LUNGS/CHEST: Lungs CTA bilaterally, non-labored respirations, normal A/P diameter, symmetrical expansion, no chest wall deformity HEART (CV/PV): Regular rate and rhythm without murmur, no peripheral edema, no JVD. ABDOMEN: Soft, non-distended, no guarding. MSK: Normal ROM, no swelling/deformity to bilateral UEs or LEs, moving all extremities without weakness, no cyanosis, spine midline without tenderness, normal curvature. NEURO: Mental Status AAOx4 - alert to person, place, time, events No facial droop, no forehead involvement. Motor: No focal weakness - strength 5/5 in bilateral UEs and LEs, proximal and distal, symmetric. Sensory: sensation intact to light touch globally. Gait normal: patient ambulated without ataxia into ED room. PSYCH: euthymic, cooperative, pleasant, appropriate speech Course Vital Signs Vital signs: Vital Signs Temperature 36.6 C 11/07/23 20:41 Pulse 90 11/07/23 20:41 Respiratory Rate 16 11/07/23 20:41 Blood Pressure 132/76 11/07/23 20:41 Pulse Oximetry 100 11/07/23 20:41 Temperature 36.6 C 11/07/23 20:41 Temperature Source Temporal Artery Scan 11/07/23 20:41 Pulse 90 11/07/23 20:41 Respiratory Rate 16 11/07/23 20:41 Blood Pressure 132/76 11/07/23 20:41 Blood Pressure Position Sitting 11/07/23 20:41 Pulse Oximetry 100 11/07/23 20:41 Oxygen Delivery Method Room Air 11/07/23 20:41 Oxygen Flow Rate 0 11/07/23 20:41 Pain Level 10 11/07/23 20:41 Medical Decision Making Quality:SDOH Health Related Social Needs: No Data to Display PFSH All Active Problems Abdominal pain (Acute) Dysuria (Acute) Acute UTI (Acute) Catheter-associated urinary tract infection (Acute) Umbilical hernia (Acute) Left inguinal hernia (Acute) Cirrhosis (Chronic) Paroxysmal atrial fibrillation (Chronic) Incarcerated right inguinal hernia (Acute) Tricuspid regurgitation (Acute) BPH (benign prostatic hyperplasia) (Chronic) Acute urinary retention (Acute) Prostate cancer (Chronic) Bone metastasis (Acute) Ventricular tachycardia (Chronic) Coronary artery disease (Chronic) NSTEMI (non-ST elevated myocardial infarction) (Acute) Anemia (Chronic) Thrombocytopenia (Chronic) Ventricular tachycardia (Chronic) Cardiomyopathy (Acute) Abdominal distention (Acute) Screening for colon cancer (Acute) Fatigue (Acute) DNR (do not resuscitate) (Acute) COVID-19 (Acute) Ascites (Chronic) Medical History Gross hematuria Thrombocytopenia Iron deficiency anemia Inguinal hernia, recurrent Leg cramps Chronic kidney disease A-fib Congestive heart failure Lateral femoral cutaneous entrapment syndrome Myocardial infarct Nail disorder Jaundice Rectal bleeding Pain, joint, knee, left Ascites Nocturnal leg cramps Cor pulmonale Cardiorenal syndrome Corns and callus Bladder outlet obstruction Cholelithiasis Inguinal hernia GERD (gastroesophageal reflux disease) Hx of congestive heart failure History of alcohol abuse Overweight Hyperlipidemia Anemia Anticoagulation adequate Hx of myocardial infarction 2007 Surgical History Hx of cystoscopy Hx of colonoscopy Hx of cataract surgery Hx of inguinal hernia surgery Hx of CABG S/P CABG (coronary artery bypass graft) 2009 Social History Smoking/Tobacco Use Status: Former Tobacco Use Quit Date: 07/12/89 Tobacco: How many years used: 15 Smoking risk assessment performed?: Yes Alcohol Intake: former Drug use: Never Substance use type: does not use Housing: house Do you feel safe at home: Yes Do you feel safe in your relationship?: Yes
--- NOTE | 2023-11-07 20:50 | ED.GENADUL_ITS ---
Discharge Plan Disposition Patient Disposition: Home Condition: Stable Discharge Details Clinical Impression: Elkins catheter problem Primary Care Provider: Rudolph Ryan ED Provider: Luis Youssef Home Meds and New Rx's Prescriptions: Continued acetaminophen [Tylenol] 325 mg capsule 325 mg PO DAILY PRN PRN Rx Instructions: for pain amiodarone 200 mg tablet 200 mg PO DAILY ferrous gluconate [Ferate] 240 mg (27 mg iron) tablet 240 mg PO BID aspirin [Aspir-81] 81 MG tablet,delayed release (DR/EC) 81 mg PO .QOD Patient Comments: 06/14/17 pt last day taking this is 06/17/17 pt aware, DCW losartan 50 MG tablet 50 mg PO DAILY triamcinolone acetonide 0.1 % cream 1 applic TOPICAL DAILY PRN Patient Comments: APPLY TO ABDOMINAL RASH DAILY NEEDED docusate sodium [Colace] 100 mg capsule 200 mg PO DAILY phenazopyridine [Pyridium] 100 mg tablet 100 mg PO BID Qty: 6 0RF atorvastatin 40 mg tablet 40 mg PO DAILY Patient Comments: TAKE ONE TABLET BY MOUTH DAILY furosemide 40 mg tablet 40 mg PO BID multivitamin Tablet 1 tab PO DAILY ascorbic acid (vitamin C) [Vitamin C] 500 mg Tablet 500 mg PO DAILY dexlansoprazole 60 mg Capsule,Biphase Delayed Releas 60 mg PO DAILY No Action Myrbetriq 25 mg tablet extended release 24 hr 25 mg PO DAILY Qty: 28 0RF Rx Instructions: Sample Discharge Instructions Referrals: [facility] [Provider Group] Rudolph Ryan [Primary Care Provider] - Discharge Data Discharge Date/Time-TO BE ENTERED AT DEPARTURE: 11/07/23 22:39 HPI General Date/Time Provider Initiated Documentation: 11/07/23 20:46 . HPI Narrative: 82 year-old male presents to ED today by POV/wheelchair with his with a chief complaint of urinary retention, chronic elkins cath due to prostate CA, having leakage around his catheter and lower abdominal discomfort with onset for the past 2-3 days. Patient does have output in his leg bag but notes it is less than usual. Quality described as suprapubic discomfort, no radiation to fever, nausea, weakness, chest pain, palpitations, numbness, flank pain, vomiting, cough. Severity is described as moderate. Palliating factors include nothing specific working. Provoking factors include nothing specific. Patient is followed by [facility] Urology. Patient not anticoagulated. Related Data Home Medications Medication Instructions Recorded Confirmed aspirin 81 mg tablet,delayed 81 mg PO .QOD 12/18/15 10/26/23 release (Aspir-) losartan 50 mg tablet 50 mg PO DAILY 06/12/16 10/26/23 acetaminophen 325 mg capsule 325 mg PO DAILY PRN PRN 07/10/21 10/26/23 (Tylenol) amiodarone 200 mg tablet 200 mg PO DAILY 07/10/21 10/26/23 ferrous gluconate 240 mg (27 mg 240 mg PO BID 07/27/22 10/26/23 iron) tablet (Ferate) atorvastatin 40 mg tablet 40 mg PO DAILY 08/17/22 10/26/23 ascorbic acid (vitamin C) 500 mg 500 mg PO DAILY 08/31/22 10/26/23 tablet (Vitamin C) dexlansoprazole 60 mg 60 mg PO DAILY 08/31/22 10/26/23 capsule,biphase delayed release multivitamin 1 tab PO DAILY 08/31/22 10/26/23 furosemide 40 mg tablet 40 mg PO BID 04/27/23 10/26/23 triamcinolone acetonide 0.1 % 1 applic topical DAILY PRN 07/19/23 10/26/23 topical cream docusate sodium 100 mg capsule 200 mg PO DAILY 10/18/23 10/26/23 (Colace) phenazopyridine 100 mg tablet 100 mg PO BID 6 doses #6 tabs 10/25/23 10/26/23 (Pyridium) mirabegron 25 mg tablet,extended 25 mg PO DAILY #28 tabs 11/08/23 11/08/23 release 24 hr (Myrbetriq) Previous Rx's Medication Instructions Recorded phenazopyridine 100 mg tablet 100 mg PO BID 6 doses #6 tabs 10/25/23 (Pyridium) mirabegron 25 mg tablet,extended 25 mg PO DAILY #28 tabs 11/08/23 release 24 hr (Myrbetriq) Allergies Allergy/AdvReac Type Severity Reaction Status Date / Time lisinopril AdvReac Intermediate cough Verified 10/25/23 21:28 carisoprodol [From Soma] AdvReac Went Verified 11/08/23 14:39 crazy spironolactone AdvReac Hyperkalemi Verified 10/25/23 21:28 a General Stated Complaint: Urinary EUSEBIO: 3 Review of Systems All systems reviewed & are unremarkable except as noted in HPI and below Exam Narrative Exam Narrative: GENERAL APPEARANCE: Well-nourished, non-toxic, awake and alert, atraumatic, no acute distress. SKIN: Warm, pink, dry, intact, without rashes/lesions/ulcerations. HEAD: Normocephalic, atraumatic, normal hair distribution for gender/age. EYES: Normal conjunctiva, no exudates on lids/lashes. ENT: Nares patent, no circumoral cyanosis, no facial swelling NECK: Supple, trachea midline, painless cervical ROM. LUNGS/CHEST: Lungs CTA bilaterally - no rhonchi/rales/wheezes diffusely, non- labored respirations, normal A/P diameter, symmetrical expansion, no chest wall deformity HEART (CV/PV): Regular rate and rhythm without murmur, no peripheral edema, no JVD. ABDOMEN: Soft, distended, no guarding, suprapubic tenderness without Rovsing's, negative Wang's sign, no McBurney's point tenderness, no CVA tenderness to percussion bilaterally. MSK: Normal ROM, no swelling/deformity to bilateral UEs or LEs, moving all extremities without weakness, no cyanosis, spine midline without tenderness, normal curvature. NEURO: Mental Status AAOx4 - alert to person, place, time, events No facial droop, no forehead involvement. Motor: No focal weakness - strength 5/5 in bilateral UEs and LEs, proximal and distal, symmetric. Sensory: sensation intact to light touch globally. Gait NT PSYCH: euthymic, cooperative, pleasant, appropriate speech Course Vital Signs Vital signs: Vital Signs Temperature 36.6 C 11/07/23 20:41 Pulse 90 11/07/23 20:41 Respiratory Rate 16 11/07/23 20:41 Blood Pressure 132/76 11/07/23 20:41 Pulse Oximetry 100 11/07/23 20:41 Temperature 36.6 C 11/07/23 20:41 Temperature Source Temporal Artery Scan 11/07/23 20:41 Pulse 90 11/07/23 20:41 Respiratory Rate 16 11/07/23 20:41 Blood Pressure 132/76 11/07/23 20:41 Blood Pressure Position Sitting 11/07/23 20:41 Pulse Oximetry 100 11/07/23 20:41 Oxygen Delivery Method Room Air 11/07/23 20:41 Oxygen Flow Rate 0 11/07/23 20:41 Pain Level 10 11/07/23 20:41 Medical Decision Making This dictation utilizes [id number] dictation software and may contain unedited grammatical errors. 82 y/o M presents to ED today with a chief complaint of urinary retention in the setting of chronic elkins cath due to prostate cancer, having leakage around the cath from the urethra, decreased output in leg bag, denies overt hematuria, denies fever, denies nausea/vomiting, denies chest pain. Patient is followed by [facility] Urology. Patients' medical history: Prostate cancer, atrial fibrillation, chronic kidney disease, CHF, history of myocardial infarction, ascites, cardiorenal syndrome, cholelithiasis, history of catheter associated UTIs, cirrhosis. Family and social history: lives at home. Pertinent exam findings / vital signs include suprapubic tenderness, no peritoneal signs, no CVA tenderness to percussion bilaterally, nontoxic vitals, benign cardiopulmonary exam, neuro intact. Differential / pathologies of concern include UTI, Elkins Catheter Obstruction, Hydronephrosis, unlikely sepsis. Diagnostic studies of: -BMP, CBC, urinalysis, bladder scan. Interventions of: -Replacement of elkins cath, draining. ED Course/Assessment/Plan: 82-year-old male presents with poor output in his Elkins catheter, he has no signs of sepsis, no flank pain, his urine has 3-5 WBCs on micro and culture is pending. He has prostate cancer, his kidney function is baseline I do not muhammad spect any acute emergent pathology or obstruction at this time. He does have urology follow-up tomorrow and I think it is reasonable for discharge to follow- up with specialty appointment. I stressed strict return criteria for any severe increase in suprapubic pain overnight especially with complete urinary retention once arriving home. Findings not consistent with obstruction, sepsis, severe UTI. Disposition of Elkins Catheter Problem. Patient verbalized understanding of the plan and return to ED criteria and engaged in shared decision making. Medical Records Medical records reviewed: Yes I reviewed the patient's medical records. Lab Data Lab results reviewed: Yes I reviewed the patient's lab results. Labs: 11/07/23 21:07 Urine - Reflex from Ua Urine Culture - Pending Laboratory Tests Range/Units 11/07/23 21:07 WBC (4.4-10.8) 10^3/uL 4.68 RBC (4.36-5.78) 10^6/uL 3.23 L Hgb (13.5-17.5) g/dL 10.3 L Hct (40.0-50.0) % 31.2 L MCV (80-95) fL 97 H MCH (27.0-33.0) pg 31.9 MCHC (32.0-36.0) % 33.0 RDW (11.8-14.1) % 14.4 H Plt Count (130-400) 10^3/uL 82 L MPV (8.0-11.0) fL 11.8 H Immature Gran % 0.4 Neutrophils % 81.5 Lymphocytes % 5.8 Monocytes % 9.8 Eosinophils % 1.9 Basophils % 0.6 Nucleated RBC % (0.0-0.3) % 0.0 Absolute Neutrophils (1.2-6.7) 10^3/uL 3.81 Absolute Lymphocytes (1.2-3.4) 10^3/uL 0.27 L Absolute Monocytes (0.1-0.8) 10^3/uL 0.46 Absolute Eosinophils (0.0-0.7) 10^3/uL 0.09 Absolute Basophils (0.0-0.2) 10^3/uL 0.03 RBC Morphology Normal Sodium (136-145) mmol/L 138 Potassium (3.5-5.1) mmol/L 4.3 Chloride (98-107) mmol/L 101 Carbon Dioxide (21.0-32.0) mmol/L 28.7 Anion Gap (3-11) mmol/L 8.3 BUN (7-18) mg/dL 40 H Creatinine (0.70-1.30) mg/dL 2.1 H Est GFR (CKD-EPI 2020) (mL/min/1.73m2) 30.66 Glucose (74-106) mg/dL 111 H Calcium (8.5-10.1) mg/dL 8.7 Urine Color (Yellow) Yellow Urine Clarity (Clear) Cloudy Urine pH (5-8) >= 9.0 H Ur Specific [place] (1.005-1.025) 1.010 Urine Protein (Neg-Trace) mg/dL >=300 H Urine Ketones (Negative) mg/dL Negative Urine Blood (Negative) Moderate H Urine Nitrite (Negative) Negative Urine Bilirubin (Negative) Small H Urine Urobilinogen (Up to 0.2) mg/dL 0.2 Ur Leukocyte Esterase (Negative) Trace H Urine RBC (0-2) HPF 10-20 H Urine WBC (0-5) HPF 5-10 Ur Epithelial Cells (Negative) HPF Rare Urine Crystals (Negative) HPF Moderate Triple Phos Urine Bacteria (Negative) HPF Few Urine Casts (Negative) LPF Negative Urine Mucus (Negative) Moderate Ur Culture Indicated? Yes Urine Glucose (Negative) mg/dL Negative Quality:SDOH Health Related Social Needs: No Data to Display PFSH All Active Problems (Updated 11/07/23 @ 22:21 by MARIUSZ Chang) Elkins catheter problem (Acute) Abdominal pain (Acute) Dysuria (Acute) Acute UTI (Acute) Catheter-associated urinary tract infection (Acute) Umbilical hernia (Acute) Left inguinal hernia (Acute) Cirrhosis (Chronic) Paroxysmal atrial fibrillation (Chronic) Incarcerated right inguinal hernia (Acute) Tricuspid regurgitation (Acute) BPH (benign prostatic hyperplasia) (Chronic) Acute urinary retention (Acute) Prostate cancer (Chronic) Bone metastasis (Acute) Ventricular tachycardia (Chronic) Coronary artery disease (Chronic) NSTEMI (non-ST elevated myocardial infarction) (Acute) Anemia (Chronic) Thrombocytopenia (Chronic) Ventricular tachycardia (Chronic) Cardiomyopathy (Acute) Abdominal distention (Acute) Screening for colon cancer (Acute) Fatigue (Acute) DNR (do not resuscitate) (Acute) COVID-19 (Acute) Ascites (Chronic) Medical History Gross hematuria Thrombocytopenia Iron deficiency anemia Inguinal hernia, recurrent Leg cramps Chronic kidney disease A-fib Congestive heart failure Lateral femoral cutaneous entrapment syndrome Myocardial infarct Nail disorder Jaundice Rectal bleeding Pain, joint, knee, left Ascites Nocturnal leg cramps Cor pulmonale Cardiorenal syndrome Corns and callus Bladder outlet obstruction Cholelithiasis Inguinal hernia GERD (gastroesophageal reflux disease) Hx of congestive heart failure History of alcohol abuse Overweight Hyperlipidemia Anemia Anticoagulation adequate Hx of myocardial infarction 2007 Surgical History Hx of cystoscopy Hx of colonoscopy Hx of cataract surgery Hx of inguinal hernia surgery Hx of CABG S/P CABG (coronary artery bypass graft) 2009 Social History Smoking/Tobacco Use Status: Former Tobacco Use Quit Date: 07/12/89 Tobacco: How many years used: 15 Smoking risk assessment performed?: Yes Alcohol Intake: former Drug use: Never Substance use type: does not use Housing: house Do you feel safe at home: Yes Do you feel safe in your relationship?: Yes
[2023-11-07 21:30] LABS: Abs Immature Grans 0.02 10^3/uL (0.0-0.06); Absolute Basophil Count 0.03 10^3/uL (0.0-0.2); Absolute Eosinophil Count 0.09 10^3/uL (0.0-0.7); Absolute Lymphocyte Count 0.27 10^3/uL (1.2-3.4); Absolute Monocyte Count 0.46 10^3/uL (0.1-0.8); Absolute Neutrophil Count 3.81 10^3/uL (1.2-6.7); Basophils % 0.6; Eosinophils % 1.9; HCT 31.2 % (40.0-50.0); HGB 10.3 g/dL (13.5-17.5); Immature Grans % 0.4; Lymphocytes % 5.8; MCH 31.9 pg (27.0-33.0); MCV 97 fL (80-95); MPV 11.8 fL (8.0-11.0); Monocytes % 9.8; Neutrophils % 81.5; RBC 3.23 10^6/uL (4.36-5.78); RDW 14.4 % (11.8-14.1); RDW-SD 50.8 fL; WBC 4.68 10^3/uL (4.4-10.8)
[2023-11-07 21:36] LABS: Anion Gap 8.3 mmol/L (3-11); BUN 40 mg/dL (7-18); CO2 28.7 mmol/L (21.0-32.0); CREATININE 2.1 mg/dL (0.70-1.30); Calcium 8.7 mg/dL (8.5-10.1); Chloride 101 mmol/L (98-107); Estimated GFR 30.66 (mL/min/1.73m2); Glucose 111 mg/dL (74-106); Potassium 4.3 mmol/L (3.5-5.1); Sodium 138 mmol/L (136-145)
[2023-11-07 21:37] LABS: Bilirubin Small (Negative); Blood Moderate (Negative); Clarity Cloudy (Clear); Glucose Negative (Negative); Ketones Negative (Negative); Leukocyte Esterase Trace (Negative); Nitrite Negative (Negative); Urobilinogen 0.2 mg/dL (Up to 0.2); pH >= 9.0 (5-8)
[2023-11-07 21:47] LABS: Diff Comment PLT Morph Reviewed; Platelet Count 82 10^3/uL (130-400)
[2023-11-07 21:48] LABS: Bacteria Few HPF (Negative); Crystals Moderate Triple Phos HPF (Negative); Epithelial Cells Rare HPF (Negative); RBC Morphology Normal
[2023-11-07 21:49] LABS: C & S Indicated? Yes; Casts Negative LPF (Negative); Mucus Moderate (Negative)
== END 2023-11-07 22:39 | disposition home or self-care (01) ==
PROVIDERS: Emergency Provider Physician Assistant; PCP Internal Medicine
DX: T83.038A Leakage of other urinary catheter, initial encounter (principal); C61 Malignant neoplasm of prostate; C79.51 Secondary malignant neoplasm of bone; I13.0 Hypertensive heart and chronic kidney disease with heart failure and stage 1 through stage 4 chronic kidney disease, or unspecified chronic kidney disease; N18.9 Chronic kidney disease, unspecified; I50.9 Heart failure, unspecified; I48.0 Paroxysmal atrial fibrillation; I25.2 Old myocardial infarction; Z95.1 Presence of aortocoronary bypass graft; Z79.82 Long term (current) use of aspirin; Z87.891 Personal history of nicotine dependence
CPT/HCPCS: 36415; 80048; 87077; 99284; 81003; 81015; 85025; 87086; 87186

== ENCOUNTER → 2023-11-08 14:13 | Outpatient (BNVA) | payer MEDICARE, SELFPAY | PROVIDERS: PCP Internal Medicine; Visit Provider Nurse Practitioner Gerontology | DX: R97.20 Elevated prostate specific antigen [PSA] (principal); C61 Malignant neoplasm of prostate; C79.51 Secondary malignant neoplasm of bone | CPT/HCPCS: 99213 ==

== ENCOUNTER 2023-11-14 07:59 | Emergency (ER) | payer MEDICARE, SELFPAY ==
[2023-11-14 08:08] VITALS: BP 130/67; PULSE 90; RESP 16; TEMP 36.8; O2SAT 99
[2023-11-14 08:58] LABS: Bilirubin Negative (Negative); Blood Moderate (Negative); Clarity Cloudy (Clear); Glucose 100 mg/dL (Negative); Ketones Negative (Negative); Leukocyte Esterase Large (Negative); Nitrite Negative (Negative); pH >= 9.0 (5-8)
[2023-11-14 09:06] LABS: Bacteria Many HPF (Negative); Epithelial Cells Negative HPF (Negative); RBC >50 HPF (0-2); WBC 20-50 HPF (0-5)
[2023-11-14 09:07] LABS: C & S Indicated? Yes; Casts Negative LPF (Negative); Crystals Many Triple Phos HPF (Negative); Mucus Heavy (Negative)
[2023-11-14 09:22] LABS: Abs Immature Grans 0.03 10^3/uL (0.0-0.06); Absolute Basophil Count 0.04 10^3/uL (0.0-0.2); Absolute Eosinophil Count 0.15 10^3/uL (0.0-0.7); Absolute Monocyte Count 0.42 10^3/uL (0.1-0.8); Absolute Neutrophil Count 3.81 10^3/uL (1.2-6.7); Basophils % 0.8 %; Eosinophils % 3.2 %; HCT 35.7 % (40.0-50.0); Immature Grans % 0.6 %; Lymphocytes % 6.3 %; MCH 32.3 pg (27.0-33.0); MCHC 33.6 % (32.0-36.0); MCV 96 fL (80-95); MPV 10.9 fL (8.0-11.0); Monocytes % 8.8 %; Neutrophils % 80.3 %; Platelet Count 105 10^3/uL (130-400); RBC 3.72 10^6/uL (4.36-5.78); RDW 14.5 % (11.8-14.1); RDW-SD 51.6 fL; WBC 4.75 10^3/uL (4.4-10.8)
[2023-11-14 09:27] LABS: Anion Gap 12.3 mmol/L (3-11); BUN 33 mg/dL (7-18); CO2 29.7 mmol/L (21.0-32.0); CREATININE 2.1 mg/dL (0.70-1.30); Calcium 9.2 mg/dL (8.5-10.1); Chloride 97 mmol/L (98-107); Estimated GFR 30.66 (mL/min/1.73m2); Glucose 105 mg/dL (74-106); Potassium 4.2 mmol/L (3.5-5.1); Sodium 139 mmol/L (136-145)
--- NOTE | 2023-11-14 09:51 | NUR.NOTE ---
report received and care assumed Nursing Note:
[2023-11-14 10:06] VITALS: BP 130/74; PULSE 67; RESP 16; O2SAT 97
--- NOTE | 2023-11-14 13:46 | ED.GENADUL_ITS ---
Discharge Plan Disposition Patient Disposition: Home Discharge Details Clinical Impression: Complication of Lazo catheter Primary Care Provider: Rudolph Ryan ED Provider: Ariella Ortega Home Meds and New Rx's Prescriptions: New amoxicillin-pot clavulanate 250-125 mg tablet 1 tab PO BID Qty: 20 0RF Saccharomyces boulardii [Florastor] 250 mg capsule 250 mg PO BID Qty: 14 0RF Continued acetaminophen [Tylenol] 325 mg capsule 325 mg PO DAILY PRN PRN Rx Instructions: for pain amiodarone 200 mg tablet 200 mg PO DAILY mirabegron [Myrbetriq] 25 mg tablet extended release 24 hr 25 mg PO DAILY Qty: 28 0RF Rx Instructions: Sample ferrous gluconate [Ferate] 240 mg (27 mg iron) tablet 240 mg PO BID aspirin [Aspir-81] 81 MG tablet,delayed release (DR/EC) 81 mg PO .QOD Patient Comments: every other day losartan 50 MG tablet 50 mg PO DAILY triamcinolone acetonide 0.1 % cream 1 applic TOPICAL DAILY PRN Patient Comments: APPLY TO ABDOMINAL RASH DAILY NEEDED docusate sodium [Colace] 100 mg capsule 200 mg PO DAILY phenazopyridine [Pyridium] 100 mg tablet 100 mg PO BID Qty: 6 0RF atorvastatin 40 mg tablet 40 mg PO DAILY Patient Comments: TAKE ONE TABLET BY MOUTH DAILY furosemide 40 mg tablet 40 mg PO BID multivitamin Tablet 1 tab PO DAILY ascorbic acid (vitamin C) [Vitamin C] 500 mg Tablet 500 mg PO DAILY dexlansoprazole 60 mg Capsule,Biphase Delayed Releas 60 mg PO DAILY Discharge Instructions Instructions: Urinary Tract Infection in Men (ED) Additional Instructions: hold on antibiotic, if your symptoms worsen call urology and have them change your catheter within 24-48 hours and start the antibiotic Take the Florastor as prescribed, if you start the antibiotic Follow-up with urology on Wednesday Increase your fluids, 88 ounce glasses of water daily as you were slightly dehydrated and return earlier should you have new or worsening complaints including fever, chills, worsening pain Referrals: Gasper Lazcano MD [ [facility] STAFF PHYSICIAN] - Discharge Data Discharge Date/Time-TO BE ENTERED AT DEPARTURE: 11/14/23 10:06 HPI General Date/Time Provider Initiated Documentation: 11/14/23 08:04 . HPI Narrative: This 82-year-old male presents with Lazo complication. He is status post cystoscopy and bladder irrigation performed mid October. Since that time he has had recurrent pain and followed up in the emergency department and with urology on 3 separate occasions. Patient states that he he has dysuria and pressure and feels as though his Lazo catheter is obstructed. He denies any flank pain or fever. He states he has been on 2 different antibiotics at the beginning of the month. He took an krug-tmo-pjyzoeo Azo yesterday to help with symptoms at the request of his primary care physician. He states it did not help his discomfort. Related Data Home Medications Medication Instructions Recorded Confirmed aspirin 81 mg tablet,delayed 81 mg PO .QOD 12/18/15 11/14/23 release (Aspir-) losartan 50 mg tablet 50 mg PO DAILY 06/12/16 11/14/23 acetaminophen 325 mg capsule 325 mg PO DAILY PRN PRN 07/10/21 11/14/23 (Tylenol) amiodarone 200 mg tablet 200 mg PO DAILY 07/10/21 11/14/23 ferrous gluconate 240 mg (27 mg 240 mg PO BID 07/27/22 11/14/23 iron) tablet (Ferate) atorvastatin 40 mg tablet 40 mg PO DAILY 08/17/22 11/14/23 ascorbic acid (vitamin C) 500 mg 500 mg PO DAILY 08/31/22 11/14/23 tablet (Vitamin C) dexlansoprazole 60 mg 60 mg PO DAILY 08/31/22 11/14/23 capsule,biphase delayed release multivitamin 1 tab PO DAILY 08/31/22 11/14/23 furosemide 40 mg tablet 40 mg PO BID 04/27/23 11/14/23 triamcinolone acetonide 0.1 % 1 applic topical DAILY PRN 07/19/23 11/14/23 topical cream docusate sodium 100 mg capsule 200 mg PO DAILY 10/18/23 11/14/23 (Colace) phenazopyridine 100 mg tablet 100 mg PO BID 6 doses #6 tabs 10/25/23 11/14/23 (Pyridium) mirabegron 25 mg tablet,extended 25 mg PO DAILY #28 tabs 11/08/23 11/14/23 release 24 hr (Myrbetriq) Saccharomyces boulardii 250 mg 250 mg PO BID #14 caps 11/14/23 capsule (Florastor) amoxicillin 250 mg-potassium 1 tab PO BID #20 tabs 11/14/23 clavulanate 125 mg tablet Previous Rx's Medication Instructions Recorded phenazopyridine 100 mg tablet 100 mg PO BID 6 doses #6 tabs 10/25/23 (Pyridium) mirabegron 25 mg tablet,extended 25 mg PO DAILY #28 tabs 11/08/23 release 24 hr (Myrbetriq) Saccharomyces boulardii 250 mg 250 mg PO BID #14 caps 11/14/23 capsule (Florastor) amoxicillin 250 mg-potassium 1 tab PO BID #20 tabs 11/14/23 clavulanate 125 mg tablet Allergies Allergy/AdvReac Type Severity Reaction Status Date / Time lisinopril AdvReac Intermediate cough Verified 11/14/23 08:10 carisoprodol [From Soma] AdvReac Went Verified 11/14/23 08:10 crazy spironolactone AdvReac Hyperkalemi Verified 11/14/23 08:10 a General Stated Complaint: Urinary EUSEBIO: 4 Exam Narrative Exam Narrative: Alert, oriented, well-appearing 82-year-old gentleman in no acute distress, cardiac rate regular, no respiratory distress, no abdominal tenderness, no CVA tenderness Course Vital Signs Vital signs: Vital Signs Temperature 36.8 C 11/14/23 08:08 Pulse 90 11/14/23 08:08 Respiratory Rate 16 11/14/23 08:08 Blood Pressure 130/67 11/14/23 08:08 Pulse Oximetry 99 11/14/23 08:08 Temperature 36.8 C 11/14/23 08:08 Temperature Source Temporal Artery Scan 11/14/23 08:08 Pulse 67 11/14/23 10:06 Respiratory Rate 16 11/14/23 10:06 Respiratory Effort Normal, Non-Labored 11/14/23 08:10 Blood Pressure 130/74 11/14/23 10:06 Blood Pressure Position Sitting 11/14/23 08:08 Pulse Oximetry 97 11/14/23 10:06 Oxygen Delivery Method Room Air 11/14/23 08:08 Oxygen Flow Rate 0 11/14/23 08:08 Pain Level 0 11/14/23 10:06 Comment when spasms happen 11/14/23 08:08 Lab/Test Results Lab/Test Results: 11/14/23 08:44 Urine - Reflex from Ua Urine Culture - Pending Laboratory Tests Range/Units 11/14/23 11/14/23 08:44 09:12 WBC (4.4-10.8) 10^3/uL 4.75 RBC (4.36-5.78) 10^6/uL 3.72 L Hgb (13.5-17.5) g/dL 12.0 L Hct (40.0-50.0) % 35.7 L MCV (80-95) fL 96 H MCH (27.0-33.0) pg 32.3 MCHC (32.0-36.0) % 33.6 RDW (11.8-14.1) % 14.5 H Plt Count (130-400) 10^3/uL 105 L MPV (8.0-11.0) fL 10.9 Immature Gran % % 0.6 Neutrophils % % 80.3 Lymphocytes % % 6.3 Monocytes % % 8.8 Eosinophils % % 3.2 Basophils % % 0.8 Nucleated RBC % (0.0-0.3) % 0.0 Absolute Neutrophils (1.2-6.7) 10^3/uL 3.81 Absolute Lymphocytes (1.2-3.4) 10^3/uL 0.30 L Absolute Monocytes (0.1-0.8) 10^3/uL 0.42 Absolute Eosinophils (0.0-0.7) 10^3/uL 0.15 Absolute Basophils (0.0-0.2) 10^3/uL 0.04 Sodium (136-145) mmol/L 139 Potassium (3.5-5.1) mmol/L 4.2 Chloride (98-107) mmol/L 97 L Carbon Dioxide (21.0-32.0) mmol/L 29.7 Anion Gap (3-11) mmol/L 12.3 H BUN (7-18) mg/dL 33 H Creatinine (0.70-1.30) mg/dL 2.1 H Est GFR (CKD-EPI 2020) (mL/min/1.73m2) 30.66 Glucose (74-106) mg/dL 105 Calcium (8.5-10.1) mg/dL 9.2 Urine Color (Yellow) Yellow Urine Clarity (Clear) Cloudy Urine pH (5-8) >= 9.0 H Ur Specific [place] (1.005-1.025) 1.010 Urine Protein (Neg-Trace) mg/dL >=300 H Urine Ketones (Negative) mg/dL Negative Urine Blood (Negative) Moderate H Urine Nitrite (Negative) Negative Urine Bilirubin (Negative) Negative Urine Urobilinogen (Up to 0.2) mg/dL 1.0 H Ur Leukocyte Esterase (Negative) Large H Urine RBC (0-2) HPF >50 H Urine WBC (0-5) HPF 20-50 H Ur Epithelial Cells (Negative) HPF Negative Urine Crystals (Negative) HPF Many Triple Phos Urine Bacteria (Negative) HPF Many Urine Casts (Negative) LPF Negative Urine Mucus (Negative) Heavy Ur Culture Indicated? Yes Urine Glucose (Negative) mg/dL 100 H Medical Decision Making This 82-year-old male presents with Lazo complication, bladder scan shows 81 cc in the bladder and Lazo catheter seems to be functioning. Urinalysis has an increasing pH with 20-50 red blood cells, likely colonized although he did have a positive urinalysis for Enterococcus 1 week ago. He was not started on antibiotics at this time. He states he actually felt great yesterday. I see no indication to change the Lazo catheter at this time and will give patient an antibiotic as there is potential to have his Lazo catheter changed within 24 to 48 hours after starting the antibiotic, however he will hold antibiotic use unless his symptoms worsen. I have written him a prescription for Augmentin, from the literature it seems that Augmentin may successfully treat Enterococcus in the outpatient setting. Patient is not a candidate for ciprofloxacin as he is on amiodarone and there is an increased risk for QTc prolongation he is afebrile and nontoxic without any signs of systemic illness. He is ambulatory with steady gait and has stable vitals in the emergency department. He has an appointment for follow-up with urology on Wednesday and he is encouraged to keep this appointment and return earlier should he have new or worsening complaints. He is feeling symptomatic improvement at time of discharge home. He did have CBC and CMP, CBC is actually improved and chemistry shows a baseline renal insufficiency with a creatinine of 2.1. Anion gap is 12, likely consistent with dehydration, patient was encouraged to increase his hydration at home. I spent approximately 5 minutes reviewing patient's evaluation from 06 November and patient surgical note from Dr. Lazcano. Quality:SDOH Health Related Social Needs: No Data to Display PFSH All Active Problems (Updated 11/14/23 @ 10:02 by MARIUSZ Urban) Complication of Lazo catheter (Acute) Lazo catheter problem (Acute) Abdominal pain (Acute) Dysuria (Acute) Acute UTI (Acute) Catheter-associated urinary tract infection (Acute) Umbilical hernia (Acute) Left inguinal hernia (Acute) Cirrhosis (Chronic) Paroxysmal atrial fibrillation (Chronic) Incarcerated right inguinal hernia (Acute) Tricuspid regurgitation (Acute) BPH (benign prostatic hyperplasia) (Chronic) Acute urinary retention (Acute) Prostate cancer (Chronic) Bone metastasis (Acute) Ventricular tachycardia (Chronic) Coronary artery disease (Chronic) NSTEMI (non-ST elevated myocardial infarction) (Acute) Anemia (Chronic) Thrombocytopenia (Chronic) Ventricular tachycardia (Chronic) Cardiomyopathy (Acute) Abdominal distention (Acute) Screening for colon cancer (Acute) Fatigue (Acute) DNR (do not resuscitate) (Acute) COVID-19 (Acute) Ascites (Chronic) Medical History Gross hematuria Thrombocytopenia Iron deficiency anemia Inguinal hernia, recurrent Leg cramps Chronic kidney disease A-fib Congestive heart failure Lateral femoral cutaneous entrapment syndrome Myocardial infarct Nail disorder Jaundice Rectal bleeding Pain, joint, knee, left Ascites Nocturnal leg cramps Cor pulmonale Cardiorenal syndrome Corns and callus Bladder outlet obstruction Cholelithiasis Inguinal hernia GERD (gastroesophageal reflux disease) Hx of congestive heart failure History of alcohol abuse Overweight Hyperlipidemia Anemia Anticoagulation adequate Hx of myocardial infarction 2007 Surgical History Hx of cystoscopy Hx of colonoscopy Hx of cataract surgery Hx of inguinal hernia surgery Hx of CABG S/P CABG (coronary artery bypass graft) 2010 Social History Smoking/Tobacco Use Status: Former Tobacco Use Quit Date: 07/12/89 Tobacco: How many years used: 15 Smoking risk assessment performed?: Yes Alcohol Intake: former Drug use: Never Substance use type: does not use Housing: house Do you feel safe at home: Yes Do you feel safe in your relationship?: Yes
== END 2023-11-14 10:06 | disposition home or self-care (01) ==
PROVIDERS: Emergency Provider Physician Assistant; PCP Internal Medicine
DX: T83.098A Other mechanical complication of other urinary catheter, initial encounter (principal); I13.0 Hypertensive heart and chronic kidney disease with heart failure and stage 1 through stage 4 chronic kidney disease, or unspecified chronic kidney disease; I50.9 Heart failure, unspecified; N18.9 Chronic kidney disease, unspecified; E78.5 Hyperlipidemia, unspecified; I48.0 Paroxysmal atrial fibrillation; I25.2 Old myocardial infarction; Z79.82 Long term (current) use of aspirin; Z87.891 Personal history of nicotine dependence
CPT/HCPCS: 36415; 80048; 87077; 99283; 81003; 81015; 85025; 87086; 87186

== ENCOUNTER → 2023-11-17 11:18 | Outpatient (BNVA) | payer MEDICARE, SELFPAY | PROVIDERS: PCP Internal Medicine; Referring Provider Internal Medicine; Visit Provider Nurse Practitioner Gerontology | DX: C61 Malignant neoplasm of prostate (principal); C79.51 Secondary malignant neoplasm of bone; N39.0 Urinary tract infection, site not specified; L03.90 Cellulitis, unspecified; R97.20 Elevated prostate specific antigen [PSA] | CPT/HCPCS: 51702; 96402; J9217 ==

== ENCOUNTER → 2023-12-01 10:17 | Outpatient (BNVA) | payer MEDICARE, SELFPAY | PROVIDERS: PCP Internal Medicine; Visit Provider Nurse Practitioner Gerontology | DX: Z46.6 Encounter for fitting and adjustment of urinary device (principal); R97.20 Elevated prostate specific antigen [PSA]; C61 Malignant neoplasm of prostate; C79.51 Secondary malignant neoplasm of bone | CPT/HCPCS: 51702 ==

== ENCOUNTER → 2023-12-21 09:45 | Outpatient (BNVA) | payer MEDICARE, SELFPAY | PROVIDERS: PCP Internal Medicine; Visit Provider Nurse Practitioner Gerontology | DX: Z46.6 Encounter for fitting and adjustment of urinary device (principal); R97.20 Elevated prostate specific antigen [PSA]; C61 Malignant neoplasm of prostate; C79.51 Secondary malignant neoplasm of bone | CPT/HCPCS: 51702 ==

== ENCOUNTER 2024-01-11 11:37 | Outpatient (CLI) | payer MEDICARE, SELFPAY ==
[2024-01-11 11:34] LABS: ALT 35 U/L (16-63); AST 37 U/L (15-37); Albumin 4.3 g/dL (3.4-5.0); Alkaline Phosphatase 94 U/L (46-116); BUN 32 mg/dL (7-18); Bilirubin, Total 0.83 mg/dL (0.2-1.0); CREATININE 2.1 mg/dL (0.70-1.30); Calcium 9.1 mg/dL (8.5-10.1); Chloride 100 mmol/L (98-107); Estimated GFR 30.47 (mL/min/1.73m2); Glucose 129 mg/dL (74-106); Sodium 139 mmol/L (136-145); Total Protein 7.5 g/dL (6.4-8.2)
[2024-01-11 12:21] LABS: Abs Immature Grans 0.02 10^3/uL (0.0-0.06); Absolute Basophil Count 0.03 10^3/uL (0.0-0.2); Absolute Eosinophil Count 0.12 10^3/uL (0.0-0.7); Absolute Lymphocyte Count 0.34 10^3/uL (1.2-3.4); Absolute Monocyte Count 0.41 10^3/uL (0.1-0.8); Absolute Neutrophil Count 3.37 10^3/uL (1.2-6.7); Basophils % 0.7 %; Eosinophils % 2.8 %; HCT 34.4 % (40.0-50.0); HGB 11.3 g/dL (13.5-17.5); Immature Grans % 0.5 %; Lymphocytes % 7.9 %; MCH 31.6 pg (27.0-33.0); MCHC 32.8 % (32.0-36.0); MCV 96 fL (80-95); MPV 11.9 fL (8.0-11.0); Monocytes % 9.6 %; Neutrophils % 78.5 %; RBC 3.58 10^6/uL (4.36-5.78); RDW 14.4 % (11.8-14.1); WBC 4.29 10^3/uL (4.4-10.8)
[2024-01-11 12:37] LABS: Diff Comment Diff Reviewed; Platelet Count 99 10^3/uL (130-400); RBC Morphology Normal
[2024-01-14 12:02] LABS: PSA, Ultrasensitive 0.03 ng/mL (<= 7.2)
[2024-01-16 17:50] LABS: Testosterone, Total <7.0 ng/dL (240-950)
== END 2024-01-11 11:38 | disposition home or self-care (01) ==
LOC: LBO 11:37
PROVIDERS: PCP Internal Medicine; Visit Provider Internal Medicine
DX: C61 Malignant neoplasm of prostate (principal); C79.51 Secondary malignant neoplasm of bone
CPT/HCPCS: 36415; 80053; 84153; 84403; 85025

== ENCOUNTER → 2024-02-01 10:26 | Outpatient (BNVA) | payer MEDICARE, SELFPAY | PROVIDERS: PCP Internal Medicine; Visit Provider Nurse Practitioner Gerontology | DX: Z46.6 Encounter for fitting and adjustment of urinary device (principal); R97.20 Elevated prostate specific antigen [PSA]; C61 Malignant neoplasm of prostate; C79.51 Secondary malignant neoplasm of bone | CPT/HCPCS: 51702 ==

== ENCOUNTER 2024-02-10 11:52 | Outpatient (REF) | payer MEDICARE, SELFPAY | END 2024-02-10 11:53 | disposition home or self-care (01) | LOC: LBN 11:52 | PROVIDERS: PCP Internal Medicine; Visit Provider Urology | DX: N39.0 Urinary tract infection, site not specified (principal); T83.511A Infection and inflammatory reaction due to indwelling urethral catheter, initial encounter | CPT/HCPCS: 87086 ==

== ENCOUNTER 2024-02-11 23:54 | Inpatient (IN) | payer MEDICARE, SELFPAY ==
[2024-02-12] VITALS (61 sets, daily range): BP systolic 95–146; BP diastolic 43–76; PULSE 63–118; RESP 12–28; TEMP 35.9–37.1; O2SAT 91–99
--- NOTE | 2024-02-12 | RT.EKG_ITS ---
APPROVED REPORT Exam: Resting ECG Reason for Exam: weakness Patient Location: E HR:87 bpm ECG Measurements Heart Rate 87 AXIS MA [id number] P [id number] QRSd 150 QRS 76 QT 455 T -88 QTc 549 Conclusion Atrial fibrillation...? atrial activity Nonspecific intraventricular conduction delay...QRSd >115mS, not LBBB/RBBB Nonspecific ST-T changes There are no significant changes compared to prior EKG performed on 10/18/2023 at 12:05.
--- NOTE | 2024-02-12 00:06 | ED.GENADUL_ITS ---
Discharge Plan Disposition Patient Disposition: Admit to [facility] Condition: Fair Discharge Details Clinical Impression: Generalized weakness, Elevated liver function tests Primary Care Provider: Rudolph Ryan ED Provider: Rudolph Chacko Goodwell Meds and New Rx's Prescriptions: No Action acetaminophen [Tylenol] 325 mg capsule 325 mg PO DAILY PRN PRN Rx Instructions: for pain amiodarone 200 mg tablet 200 mg PO DAILY ferrous gluconate [Ferate] 240 mg (27 mg iron) tablet 240 mg PO BID tramadol 50 mg tablet 50 mg PO QHS PRN (Reason: pain) Qty: 10 0RF Rx Instructions: may take along with NSAIDS/Tylenol mirabegron [Myrbetriq] 50 mg tablet extended release 24 hr 50 mg PO DAILY Qty: 90 3RF Rx Instructions: Note dosage increase aspirin [Aspir-81] 81 MG tablet,delayed release (DR/EC) 81 mg PO .QOD Patient Comments: every other day losartan 50 MG tablet 50 mg PO DAILY triamcinolone acetonide 0.1 % cream 1 applic TOPICAL DAILY PRN Patient Comments: APPLY TO ABDOMINAL RASH DAILY NEEDED docusate sodium [Colace] 100 mg capsule 200 mg PO DAILY phenazopyridine [Pyridium] 100 mg tablet 100 mg PO BID Qty: 6 0RF atorvastatin 40 mg tablet 40 mg PO DAILY Patient Comments: TAKE ONE TABLET BY MOUTH DAILY furosemide 40 mg tablet 40 mg PO BID multivitamin Tablet 1 tab PO DAILY ascorbic acid (vitamin C) [Vitamin C] 500 mg Tablet 500 mg PO DAILY dexlansoprazole 60 mg Capsule,Biphase Delayed Releas 60 mg PO DAILY Saccharomyces boulardii [Florastor] 250 mg capsule 250 mg PO BID Qty: 14 0RF HPI General Mode of arrival: wheelchair . Date/Time Provider Initiated Documentation: 02/12/24 00:05 . Limitations to Documentation: no limitations . Information obtained by: patient, family, RN notes reviewed and old records reviewed . HPI Narrative: Patient presenting to ED with complaint of generalized weakness and sweats. He has had increasing weakness over the last couple of days. Broke out into a heavy sweat this evening after going to bed. Unclear whether he had fever or not. Seems more slow than usual but not necessarily confused per the . Had some low back pain earlier but none now. Denies any type of chest pain or pressure, cough, shortness of breath, abdominal pain, vomiting. He has a chronic indwelling Lazo which was changed on the first of this month. Has history of cirrhosis as well as chronic kidney disease. Denies any fall or trauma. Feels generally weak all over not focally or one-sided. Related Data Home Medications ?Medication ?Instructions ?Recorded ?Confirmed aspirin 81 mg tablet,delayed 81 mg PO .QOD 12/18/15 02/12/24 release (Aspir-) losartan 50 mg tablet 50 mg PO DAILY 06/12/16 02/12/24 acetaminophen 325 mg capsule 325 mg PO DAILY PRN PRN 07/10/21 02/12/24 (Tylenol) amiodarone 200 mg tablet 200 mg PO DAILY 07/10/21 02/12/24 ferrous gluconate 240 mg (27 mg 240 mg PO BID 07/27/22 02/12/24 iron) tablet (Ferate) atorvastatin 40 mg tablet 40 mg PO DAILY 08/17/22 02/12/24 ascorbic acid (vitamin C) 500 mg 500 mg PO DAILY 08/31/22 02/12/24 tablet (Vitamin C) dexlansoprazole 60 mg 60 mg PO DAILY 08/31/22 02/12/24 capsule,biphase delayed release multivitamin 1 tab PO DAILY 08/31/22 02/12/24 furosemide 40 mg tablet 40 mg PO BID 04/27/23 02/12/24 triamcinolone acetonide 0.1 % 1 applic topical DAILY PRN 07/19/23 02/12/24 topical cream docusate sodium 100 mg capsule 200 mg PO DAILY 10/18/23 02/12/24 (Colace) phenazopyridine 100 mg tablet 100 mg PO BID 6 doses #6 tabs 10/25/23 02/12/24 (Pyridium) Saccharomyces boulardii 250 mg 250 mg PO BID #14 caps 11/14/23 02/12/24 capsule (Florastor) mirabegron 50 mg tablet,extended 50 mg PO DAILY #90 tabs 02/08/24 02/12/24 release 24 hr (Myrbetriq) tramadol 50 mg tablet 50 mg PO QHS PRN pain #10 tabs 02/10/24 02/12/24 Previous Rx's ?Medication ?Instructions ?Recorded phenazopyridine 100 mg tablet 100 mg PO BID 6 doses #6 tabs 04/15/24 (Pyridium) Saccharomyces boulardii 250 mg 250 mg PO BID #14 caps 11/14/23 capsule (Florastor) mirabegron 50 mg tablet,extended 50 mg PO DAILY #90 tabs 02/08/24 release 24 hr (Myrbetriq) tramadol 50 mg tablet 50 mg PO QHS PRN pain #10 tabs 02/10/24 Allergies Allergy/AdvReac Type Severity Reaction Status Date / Time lisinopril AdvReac Intermediate cough Verified 02/12/24 00:03 carisoprodol (From Soma) AdvReac Went Verified 02/12/24 00:03 crazy spironolactone AdvReac Hyperkalemi Verified 02/12/24 00:03 a General EUSEBIO: 4 Review of Systems Narrative: Per HPI Exam Narrative Exam Narrative: Const: Obese elderly male in NAD. VS per triage. HEENT: NC/AT. Neck: Supple. Trachea midline. Lungs: Normal respiratory effort. Lungs are clear. Cor: irr/irr with murmur. Good radial pulses. GI: Soft/ND/NT. Neuro: A+O x 3. Slow speech and mentation. Cranial nerves II - XII grossly intact, questionable mild left face droop. Generally weak throughout. No sensory deficit. Ext: No C/C. BLE edema. Medical Decision Making Patient presenting with progressive generalized weakness and slow mentation/speech, diaphoresis but no fever. Patient has a mild left facial droop unclear if old or new but otherwise is nonfocal but very weak in general with slow speech and mentation but oriented, keenly alert/awake. He is not febrile. He is rate controlled A-fib. He is not anticoagulated but does take baby aspirin once a day. His lungs are clear. His abdomen is benign. Lazo catheter was just changed on the first. Will proceed with weakness workup to include head CT, nasal swab, laboratory studies, chest x-ray, urinalysis. Per my review, EKG is rate controlled A-fib with nonspecific interventricular conduction delay and nonspecific ST changes unchanged from previous. Per my review his chest x-ray shows cardiomegaly with no acute cardiopulmonary process. CT head preliminary read by radiology negative for acute process. Laboratory studies with a normal white count. He has a stable hemoglobin. Kidney function pretty much baseline, mildly bumped creatinine to 2.6 but typically runs 2 to 2.5. Electrolytes are fine. Liver function is bumped compared to his baseline with total bilirubin 1.1, AST 108, ALT 94, alk phos 353. Ammonia level is normal. Troponin is normal. Urine is not infected. Nasal swab negative. On reevaluation patient continues to be awake and alert, little bit slow in his response but completely articulate. Continues to be generally weak with no focal changes. Not safe for discharge with high risk of fall. This is also new finding over the last few days. Should admit for trending of liver function, blood count and consider right upper quadrant ultrasound. Discussed with hospitalist. Medical Records Medical records reviewed: Yes I reviewed the patient's medical records. Imaging Data Radiologic Study: Attestation: I personally reviewed and interpreted this imaging study as follows: Imaging: X-Ray My impression: Cardiomegaly without acute cardiopulmonary process Lab Data Lab results reviewed: Yes I reviewed the patient's lab results. ECG Data Attestation: I personally reviewed and interpreted this ECG (s) as follows: Prior ECG tracings: available for review Interpretation: See EKG/MDM PFSH All Active Problems (Updated 02/12/24 @ 03:32 by Rudolph Chacko MD) Elevated liver function tests (Acute) Generalized weakness (Acute) Umbilical hernia (Acute) Left inguinal hernia (Acute) Tricuspid regurgitation (Acute) Screening for colon cancer (Acute) Fatigue (Acute) DNR (do not resuscitate) (Acute) Ascites (Chronic) Medical History Cirrhosis BPH (benign prostatic hyperplasia) Bone metastasis Prostate cancer Ventricular tachycardia Cardiomyopathy Thrombocytopenia Iron deficiency anemia Inguinal hernia, recurrent Chronic kidney disease A-fib Congestive heart failure Lateral femoral cutaneous entrapment syndrome Nail disorder Ascites Nocturnal leg cramps Cor pulmonale Cardiorenal syndrome Corns and callus Bladder outlet obstruction Cholelithiasis Inguinal hernia GERD (gastroesophageal reflux disease) History of alcohol abuse Overweight Hyperlipidemia Anticoagulation adequate Hx of myocardial infarction 2007 Surgical History Hx of mitral valve repair (~2009) Hx of cystoscopy Hx of colonoscopy Hx of cataract surgery Hx of inguinal hernia surgery S/P CABG (coronary artery bypass graft) 2009 Social History Smoking/Tobacco Use Status: Former Tobacco Use Quit Date: 07/12/89 Tobacco: How many years used: 15 Smoking risk assessment performed?: Yes Alcohol Intake: former Drug use: Never Substance use type: does not use Housing: house Do you feel safe at home: Yes Do you feel safe in your relationship?: Yes
[2024-02-12] MEDS: Lactated Ringers 500 ML IV (00:35)
[2024-02-12 00:41] LABS: Abs Immature Grans 0.07 10^3/uL (0.0-0.06); Absolute Basophil Count 0.02 10^3/uL (0.0-0.2); Absolute Eosinophil Count 0.05 10^3/uL (0.0-0.7); Absolute Lymphocyte Count 0.27 10^3/uL (1.2-3.4); Absolute Neutrophil Count 4.66 10^3/uL (1.2-6.7); Basophils % 0.4 %; Eosinophils % 0.9 %; HGB 11.9 g/dL (13.5-17.5); Immature Grans % 1.3 %; Lymphocytes % 4.8 %; MCH 31.6 pg (27.0-33.0); MCV 93 fL (80-95); MPV 11.8 fL (8.0-11.0); Neutrophils % 83.6 %; RBC 3.76 10^6/uL (4.36-5.78); RDW 14.4 % (11.8-14.1); RDW-SD 49.1 fL; WBC 5.57 10^3/uL (4.4-10.8)
[2024-02-12 00:47] LABS: Bilirubin Negative (Negative); Blood Trace-intact (Negative); Clarity Clear (Clear); Glucose Negative (Negative); Ketones Negative (Negative); Leukocyte Esterase Small (Negative); Nitrite Negative (Negative); pH 7.5 (5-8)
[2024-02-12 00:54] LABS: Diff Comment PLT Morph Reviewed; RBC Morphology Normal
[2024-02-12 00:55] LABS: ALT 94 U/L (16-63); AST 108 U/L (15-37); Albumin 3.8 g/dL (3.4-5.0); Alkaline Phosphatase 353 U/L (46-116); Anion Gap 8.8 mmol/L (3-11); BUN 34 mg/dL (7-18); Bilirubin, Total 1.09 mg/dL (0.2-1.0); CO2 30.2 mmol/L (21.0-32.0); CREATININE 2.6 mg/dL (0.70-1.30); Calcium 8.9 mg/dL (8.5-10.1); Chloride 96 mmol/L (98-107); Estimated GFR 23.58 (mL/min/1.73m2); Glucose 100 mg/dL (74-106); Magnesium 2.4 mg/dL (1.8-2.4); Platelet Count 87 10^3/uL (130-400); Potassium 4.4 mmol/L (3.5-5.1); Sodium 135 mmol/L (136-145); Total Protein 7.4 g/dL (6.4-8.2)
[2024-02-12 00:58] LABS: Bacteria Negative HPF (Negative); Epithelial Cells Rare HPF (Negative); Other Cells Rare Renal (Negative)
[2024-02-12 00:59] LABS: Troponin I < 50 ng/L (< or =60)
[2024-02-12 00:59] LABS: C & S Indicated? No; Casts 0-2 Hyaline LPF (Negative); Crystals Negative HPF (Negative); Mucus Negative (Negative)
--- NOTE | 2024-02-12 01:03 | DI.CT_ITS ---
Exam(s) CT HEAD WO EXAM: CT HEAD WO CLINICAL HISTORY: AMS. TECHNIQUE: Imaging Protocol: Axial computed tomography images with coronal and sagittal reformatted images were created and reviewed COMPARISON: No exams were available for comparison FINDINGS: Exam mildly limited by streak artifact. Ventricles and Extra axial spaces: Normal in size and morphology for the patient's age. Hemorrhage: None. Cerebral parenchyma: No evidence of acute infarct or mass. Atrophy. Midline shift: None. Brainstem/Cerebellum: Normal. Calvarium: Normal. Visualized Paranasal sinuses:Clear. Mastoids: Clear. Soft Tissues: Unremarkable. ORBITS: Unremarkable. PITUITARY: Not enlarged. IMPRESSION: No acute intracranial process. RADIATION DOSE DELIVERED: Total DLP DATA REPOSITORY: All CT scans at this facility are submitted to the National Radiology Data Registry (NRDR) Dose Index Registry (DIR) with the [employer] (A[employer]). RADIATION OPTIMIZATION: All CT scans at this facility use at least one of these dose optimization te chniques: automated exposure control; mA and/or kV adjustment per patient size (includes targeted exa ms where dose is matched to clinical indication); or iterative reconstruction.
--- NOTE | 2024-02-12 01:03 | DI.RAD_ITS ---
Exam(s) XR CHEST 2V PA LATERAL EXAM: XR CHEST 2V PA LATERAL CLINICAL HISTORY: weakness TECHNIQUE: 2D digital imaging was performed. Two views. COMPARISON: CR XR PORTABLE CHEST AP from 10/18/2023 FINDINGS: HEART: Markedly enlarged. Mitral valve prosthesis. Status post CABG. Aorta: Not dilated. PULMONARY VASCULATURE: Normal. MEDIASTINUM: Unremarkable. LUNGS: Clear. PLEURAL SPACE: No pleural effusion or pneumothorax. BONE:Sternal wires. No thoracic compression fractures. SOFT TISSUES: Unremarkable. IMPRESSION: Cardiomegaly. No acute abnormality. DATA REPOSITORY: RADIATION DOSE DELIVERED:
[2024-02-12 01:53] LABS: Ammonia 14 umol/L (11-32)
--- NOTE | 2024-02-12 02:09 | DI.VRAD_ITS ---
PROCEDURE INFORMATION: Exam: CT Head Without Contrast Exam date and time: 02/12/2024 12:49 AM Age: 83 years old Clinical indication: Altered mental status/memory loss; Confusion or disorientation; Patient HX: AMS TECHNIQUE: Imaging protocol: Computed tomography of the head without contrast. Radiation optimization: All CT scans at this facility use at least one of these dose optimization techniques: automated exposure control; mA and/or kV adjustment per patient size (includes targeted exams where dose is matched to clinical indication); or iterative reconstruction. COMPARISON: NM BONE SCAN WHOLE BODY [facility] 01/07/2022 1:28 PM FINDINGS: Brain: Mild generalized volume loss of the brain. No brain edema. No intracranial hemorrhage. Cerebral ventricles: No ventriculomegaly. Paranasal sinuses: Visualized sinuses are unremarkable. No fluid levels. Mastoid air cells: Unremarkable. Bones: Unremarkable. No acute fracture. Soft tissues: Unremarkable. IMPRESSION: No acute brain findings. Dictated and Authenticated by: Adria Peace MD. Ordering:GRETEL Galdamez MD
--- NOTE | 2024-02-12 02:15 | DI.VRAD_ITS ---
PROCEDURE INFORMATION: Exam: XR Chest Exam date and time: 02/12/2024 1:01 AM Age: 83 years old Clinical indication: Other: Weakness; Prior surgery; Surgery date: 6+ months; Surgery type: Heart surgery TECHNIQUE: Imaging protocol: Radiologic exam of the chest. Views: 2 views. COMPARISON: CR XR PORTABLE CHEST AP 10/18/2023 12:50 PM FINDINGS: Tubes, catheters and devices: Prosthetic mitral valve. Lungs: Unremarkable. No consolidation. Pleural spaces: Unremarkable. No pleural effusion. No pneumothorax. Heart/Mediastinum: Unremarkable. No cardiomegaly. Bones/joints: Unremarkable. IMPRESSION: No acute findings. Dictated and Authenticated by: Adria Peace MD. Ordering:GRETEL Galdamez MD
[2024-02-12 02:47] LABS: COVID-19 PCR Negative (Negative); Influenza A PCR Negative (Negative); Influenza B PCR Negative (Negative); RSV PCR Negative (Negative)
[2024-02-12 02:51] LABS: Source Nasopharynx
--- NOTE | 2024-02-12 03:15 | NUR.NOTE ---
Nursing Note: Patient's brought all the clothing home.
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
[2024-02-12 05:45] LABS: HCT 31.8 % (40.0-50.0); HGB 10.8 g/dL (13.5-17.5); MCH 31.6 pg (27.0-33.0); MCV 93 fL (80-95); MPV 11.4 fL (8.0-11.0); RBC 3.42 10^6/uL (4.36-5.78); RDW 14.6 % (11.8-14.1); RDW-SD 49.3 fL; WBC 4.91 10^3/uL (4.4-10.8)
[2024-02-12] MEDS: Normal Saline 1,000 ML 100 ML IV (05:45)
--- NOTE | 2024-02-12 05:46 | W.PCEDHO ---
Registration Status: Primary Language: Preferred Language: ED Information & Data Chief Complaint [id number] 02/12/24 00:12 Chief Complaint [id number] 02/12/24 00:05 Triage Note Has been feeling weak and 02/12/24 00:05 has had periods of diaphoresis. No CP, no SOB. Pt has hx of double bypass with valve repair 14 years ago. Has indwelling catheter as well, replaced [address] Lazcano. No fevers or chills. Medical / Surgical History (Last Reviewed 02/12/24 @ 01:41 by Rudolph Chacko MD) Cirrhosis BPH (benign prostatic hyperplasia) Bone metastasis Prostate cancer Ventricular tachycardia Cardiomyopathy Thrombocytopenia Iron deficiency anemia Inguinal hernia, recurrent Chronic kidney disease A-fib Congestive heart failure Lateral femoral cutaneous entrapment syndrome Nail disorder Ascites Nocturnal leg cramps Cor pulmonale Cardiorenal syndrome Corns and callus Bladder outlet obstruction Cholelithiasis Inguinal hernia GERD (gastroesophageal reflux disease) History of alcohol abuse Overweight Hyperlipidemia Anticoagulation adequate Hx of myocardial infarction (Last Reviewed 02/12/24 @ 01:41 by Rudolph Chacko MD) Hx of mitral valve repair (~2009) Hx of cystoscopy Hx of colonoscopy Hx of cataract surgery Hx of inguinal hernia surgery S/P CABG (coronary artery bypass graft) Most Recent Vital Signs Temperature 37.1 C 02/12/24 00:05 Temperature Source Temporal Artery Scan 02/12/24 00:05 Pulse 63 02/12/24 04:31 Pulse 75 02/12/24 04:31 Respiratory Rate 22 02/12/24 04:31 Respiratory Effort Normal 02/12/24 01:36 Respiratory Depth Normal 02/12/24 01:36 Respiratory Pattern Normal 02/12/24 01:36 Blood Pressure 124/43 L 02/12/24 04:31 Blood Pressure Mean 72 02/12/24 04:31 Blood Pressure Position Supine 02/12/24 00:05 Pulse Oximetry 95 02/12/24 04:31 Oxygen Delivery Method Room Air 02/12/24 00:12 Oxygen Flow Rate 0 02/12/24 00:12 Pain Level 0 02/12/24 00:05 Allergies lisinopril Adverse Reaction (Intermediate, Verified 02/12/24 00:03) cough carisoprodol (From Soma) Adverse Reaction (Verified 02/12/24 00:03) Went crazy spironolactone Adverse Reaction (Verified 02/12/24 00:03) Hyperkalemia IV IV Catheter Type [Left Peripheral IV Antecubital] IV Catheter Gauge [Left 18 Antecubital] Diet Orders Category Date Time Status Heart Healthy Eating [DIET] Nutrition 02/12/24 Breakfast Active Diagnostics 02/12/24 02/12/24 02/12/24 Range/Units 09:30 05:35 05:24 WBC Pending (4.4-10.8) 10^3/uL RBC Pending (4.36-5.78) 10^6/uL Hgb Pending (13.5-17.5) g/dL Hct Pending (40.0-50.0) % MCV Pending (80-95) fL MCH Pending (27.0-33.0) pg MCHC Pending (32.0-36.0) % RDW Pending (11.8-14.1) % Plt Count Pending (130-400) 10^3/uL MPV Pending (8.0-11.0) fL Immature Gran % % Neutrophils % % Lymphocytes % % Monocytes % % Eosinophils % % Basophils % % Nucleated RBC % (0.0-0.3) % Absolute Neutrophils (1.2-6.7) 10^3/uL Absolute Lymphocytes (1.2-3.4) 10^3/uL Absolute Monocytes (0.1-0.8) 10^3/uL Absolute Eosinophils (0.0-0.7) 10^3/uL Absolute Basophils (0.0-0.2) 10^3/uL RBC Morphology PT Pending Pending INR Pending Pending Sodium Pending Pending (136-145) mmol/L Potassium Pending Pending (3.5-5.1) mmol/L Chloride Pending Pending (98-107) mmol/L Carbon Dioxide Pending Pending (21.0-32.0) mmol/L Anion Gap Pending Pending (3-11) mmol/L BUN Pending Pending (7-18) mg/dL Creatinine Pending Pending (0.70-1.30) mg/dL Est GFR (CKD-EPI 2020) Pending Pending (mL/min/1.73m2) Glucose Pending Pending (74-106) mg/dL Calcium Pending Pending (8.5-10.1) mg/dL Magnesium Pending (1.8-2.4) mg/dL Total Bilirubin Pending (0.2-1.0) mg/dL AST Pending (15-37) U/L ALT Pending (16-63) U/L Alkaline Phosphatase Pending (46-116) U/L Ammonia (11-32) umol/L Troponin I Pending Pending (< or =60) ng/L Total Protein Pending (6.4-8.2) g/dL Albumin Pending (3.4-5.0) g/dL TSH Pending Urine Color (Yellow) Urine Clarity (Clear) Urine pH (5-8) Ur Specific [place] (1.005-1.025) Urine Protein (Neg-Trace) mg/dL Urine Ketones (Negative) mg/dL Urine Blood (Negative) Urine Nitrite (Negative) Urine Bilirubin (Negative) Urine Urobilinogen (Up to 0.2) mg/dL Ur Leukocyte Esterase (Negative) Urine RBC (0-2) HPF Urine WBC (0-5) HPF Ur Epithelial Cells (Negative) HPF Urine Crystals (Negative) HPF Urine Bacteria (Negative) HPF Urine Casts (Negative) LPF Urine Mucus (Negative) Urine Other (Negative) Ur Culture Indicated? Urine Glucose (Negative) mg/dL COVID-19 Source SARS-CoV-2 (PCR) (Negative) Influenza Type A (PCR) (Negative) Influenza Type B (PCR) (Negative) RSV (PCR) (Negative) 02/12/24 02/12/24 02/12/24 Range/Units 01:32 00:25 00:23 WBC (4.4-10.8) 10^3/uL RBC (4.36-5.78) 10^6/uL Hgb (13.5-17.5) g/dL Hct (40.0-50.0) % MCV (80-95) fL MCH (27.0-33.0) pg MCHC (32.0-36.0) % RDW (11.8-14.1) % Plt Count (130-400) 10^3/uL MPV (8.0-11.0) fL Immature Gran % % Neutrophils % % Lymphocytes % % Monocytes % % Eosinophils % % Basophils % % Nucleated RBC % (0.0-0.3) % Absolute Neutrophils (1.2-6.7) 10^3/uL Absolute Lymphocytes (1.2-3.4) 10^3/uL Absolute Monocytes (0.1-0.8) 10^3/uL Absolute Eosinophils (0.0-0.7) 10^3/uL Absolute Basophils (0.0-0.2) 10^3/uL RBC Morphology PT INR Sodium (136-145) mmol/L Potassium (3.5-5.1) mmol/L Chloride (98-107) mmol/L Carbon Dioxide (21.0-32.0) mmol/L Anion Gap (3-11) mmol/L BUN (7-18) mg/dL Creatinine (0.70-1.30) mg/dL Est GFR (CKD-EPI 2020) (mL/min/1.73m2) Glucose (74-106) mg/dL Calcium (8.5-10.1) mg/dL Magnesium (1.8-2.4) mg/dL Total Bilirubin (0.2-1.0) mg/dL AST (15-37) U/L ALT (16-63) U/L Alkaline Phosphatase (46-116) U/L Ammonia 14 (11-32) umol/L Troponin I (< or =60) ng/L Total Protein (6.4-8.2) g/dL Albumin (3.4-5.0) g/dL TSH Urine Color Yellow (Yellow) Urine Clarity Clear (Clear) Urine pH 7.5 (5-8) Ur Specific [place] 1.020 (1.005-1.025) Urine Protein Negative (Neg-Trace) mg/dL Urine Ketones Negative (Negative) mg/dL Urine Blood Trace-intact H (Negative) Urine Nitrite Negative (Negative) Urine Bilirubin Negative (Negative) Urine Urobilinogen 1.0 H (Up to 0.2) mg/dL Ur Leukocyte Esterase Small H (Negative) Urine RBC 3-5 H (0-2) HPF Urine WBC 5-10 (0-5) HPF Ur Epithelial Cells Rare (Negative) HPF Urine Crystals Negative (Negative) HPF Urine Bacteria Negative (Negative) HPF Urine Casts 0-2 Hyaline (Negative) LPF Urine Mucus Negative (Negative) Urine Other Rare Renal (Negative) Ur Culture Indicated? No Urine Glucose Negative (Negative) mg/dL COVID-19 Source Nasopharynx SARS-CoV-2 (PCR) Negative (Negative) Influenza Type A (PCR) Negative (Negative) Influenza Type B (PCR) Negative (Negative) RSV (PCR) Negative (Negative) 02/12/24 Range/Units 00:15 WBC 5.57 (4.4-10.8) 10^3/uL RBC 3.76 L (4.36-5.78) 10^6/uL Hgb 11.9 L (13.5-17.5) g/dL Hct 35.0 L (40.0-50.0) % MCV 93 (80-95) fL MCH 31.6 (27.0-33.0) pg MCHC 34.0 (32.0-36.0) % RDW 14.4 H (11.8-14.1) % Plt Count 87 L (130-400) 10^3/uL MPV 11.8 H (8.0-11.0) fL Immature Gran % 1.3 % Neutrophils % 83.6 % Lymphocytes % 4.8 % Monocytes % 9.0 % Eosinophils % 0.9 % Basophils % 0.4 % Nucleated RBC % 0.0 (0.0-0.3) % Absolute Neutrophils 4.66 (1.2-6.7) 10^3/uL Absolute Lymphocytes 0.27 L (1.2-3.4) 10^3/uL Absolute Monocytes 0.50 (0.1-0.8) 10^3/uL Absolute Eosinophils 0.05 (0.0-0.7) 10^3/uL Absolute Basophils 0.02 (0.0-0.2) 10^3/uL RBC Morphology Normal PT INR Sodium 135 L (136-145) mmol/L Potassium 4.4 (3.5-5.1) mmol/L Chloride 96 L (98-107) mmol/L Carbon Dioxide 30.2 (21.0-32.0) mmol/L Anion Gap 8.8 (3-11) mmol/L BUN 34 H (7-18) mg/dL Creatinine 2.6 H (0.70-1.30) mg/dL Est GFR (CKD-EPI 2020) 23.58 (mL/min/1.73m2) Glucose 100 (74-106) mg/dL Calcium 8.9 (8.5-10.1) mg/dL Magnesium 2.4 (1.8-2.4) mg/dL Total Bilirubin 1.09 H (0.2-1.0) mg/dL AST 108 H (15-37) U/L ALT 94 H (16-63) U/L Alkaline Phosphatase 353 H (46-116) U/L Ammonia (11-32) umol/L Troponin I < 50 (< or =60) ng/L Total Protein 7.4 (6.4-8.2) g/dL Albumin 3.8 (3.4-5.0) g/dL TSH Urine Color (Yellow) Urine Clarity (Clear) Urine pH (5-8) Ur Specific [place] (1.005-1.025) Urine Protein (Neg-Trace) mg/dL Urine Ketones (Negative) mg/dL Urine Blood (Negative) Urine Nitrite (Negative) Urine Bilirubin (Negative) Urine Urobilinogen (Up to 0.2) mg/dL Ur Leukocyte Esterase (Negative) Urine RBC (0-2) HPF Urine WBC (0-5) HPF Ur Epithelial Cells (Negative) HPF Urine Crystals (Negative) HPF Urine Bacteria (Negative) HPF Urine Casts (Negative) LPF Urine Mucus (Negative) Urine Other (Negative) Ur Culture Indicated? Urine Glucose (Negative) mg/dL COVID-19 Source SARS-CoV-2 (PCR) (Negative) Influenza Type A (PCR) (Negative) Influenza Type B (PCR) (Negative) RSV (PCR) (Negative) Intake and Output - 24 Hour Total 02/11/24 23:54 thru 02/12/24 01:35 Intake Total 500 Balance 500 Weight 81.9 kg Intake: IV 500 Falls Risk Assessment History of Falls No History 02/12/24 00:12 Contributing Factors No Factors 02/12/24 00:12 Ambulatory Aids Independent 02/12/24 00:12 Tubes/Lines None 02/12/24 00:12 Gait Evaluation No gait disturbance 02/12/24 00:12 Fall Total Score 0 02/12/24 00:12 Level of Risk Standard/Low Risk 02/12/24 00:12 Problems (Last Reviewed 02/12/24 @ 01:41 by Rudolph Chacko MD) Syncope and collapse (Acute) Elevated liver function tests (Acute) Generalized weakness (Acute) Notes 02/12/24 03:15 Nursing Notes by Elena Liang Nursing Note: Patient's brought all the clothing home. Initialized on 02/12/24 03:15 - END OF NOTE v v v v v v v v v Sending and/or Receiving Nurses: Please use comment section below to note any information pertinent to the patient hand-off not included above. Information / Comments: Generalized weakness for 2 days with periods of diaphoresis. Near syncope w/o LOC. VSS, no s/sx of UTI, neuro deficit, chest pain, SOB EKG: A fib with LBB, not anticoagulated except daily aspirin Hx of cirrhosis, liver enzymes elevated from last draw in November 2023 Hx of CKD, BUN/Creatinine elevated Chronic elkins, replaced within past few weeks by Dr. Lazcano Report received from: Titus Angeles RN on 02/12/24 @ [id number]
[2024-02-12 05:53] LABS: INR 1.3 (0.9-1.1); Prothrombin Time 12.5 sec (9.1-11.1)
[2024-02-12 05:56] LABS: Platelet Count 75 10^3/uL (130-400)
[2024-02-12 06:01] LABS: ALT 81 U/L (16-63); AST 95 U/L (15-37); Albumin 3.2 g/dL (3.4-5.0); Alkaline Phosphatase 306 U/L (46-116); Anion Gap 6.7 mmol/L (3-11); BUN 30 mg/dL (7-18); Bilirubin, Total 1.04 mg/dL (0.2-1.0); CO2 30.3 mmol/L (21.0-32.0); CREATININE 2.4 mg/dL (0.70-1.30); Calcium 8.2 mg/dL (8.5-10.1); Chloride 99 mmol/L (98-107); Estimated GFR 25.96 (mL/min/1.73m2); Glucose 89 mg/dL (74-106); Magnesium 2.1 mg/dL (1.8-2.4); Sodium 136 mmol/L (136-145); Total Protein 6.3 g/dL (6.4-8.2)
[2024-02-12 06:10] LABS: Troponin I < 50 ng/L (< or =60)
[2024-02-12 06:42] LABS: TSH (W/Ref FT4) 101.19 uIU/mL (0.36-3.74)
[2024-02-12 07:00] LABS: FREE T4 0.31 ng/dL (0.76-1.46)
[2024-02-12 08:25] LABS: Anion Gap 8.3 mmol/L (3-11); BUN 31 mg/dL (7-18); CO2 27.7 mmol/L (21.0-32.0); CREATININE 2.3 mg/dL (0.70-1.30); Calcium 8.7 mg/dL (8.5-10.1); Chloride 98 mmol/L (98-107); Estimated GFR 27.32 (mL/min/1.73m2); Glucose 95 mg/dL (74-106); Sodium 134 mmol/L (136-145)
[2024-02-12 08:26] LABS: INR 1.2 (0.9-1.1); Prothrombin Time 12.2 sec (9.1-11.1)
[2024-02-12] MEDS: Normal Saline Flush 10 ML SYR IVP ×3 (08:34→19:43)
[2024-02-12] MEDS: Levothyroxine 100 MCG VIAL 50 MCG IVP (08:41)
[2024-02-12] MEDS: Ascorbic Acid 500 MG TAB PO (08:42)
[2024-02-12] MEDS: Amiodarone 200 MG TAB PO (08:42)
[2024-02-12] MEDS: Aspirin E.C. 81 MG TABEC PO (08:42)
[2024-02-12] MEDS: Losartan 50 MG TAB PO (08:42)
[2024-02-12] MEDS: Docusate Sodium 100 MG CAP 200 MG PO (08:42)
[2024-02-12] MEDS: Multivitamin TAB 1 TAB PO (08:42)
[2024-02-12] MEDS: Furosemide 40 MG TAB PO ×2 (09:02→16:03)
[2024-02-12] MEDS: Cosyntropin 0.25 MG VIAL IVP (09:45)
--- NOTE | 2024-02-12 09:50 | INITIAL_ITS ---
Date of service: 02/12/24 Time of Service: 09:50 Care Management Initial Assmt Initial Assessment Reason for Hospitalization: Syncope, CAF, TIA workup Functional Status/Living Situation Patient Presentation: Gasper was awake, lying in bed when CM met with him. Gasper drives and is independent with his ADL/IADL's at baseline. He engages in conversation and shares that he lost his youngest daughter 4 years ago from Pancreatic cancer. He also shares that he has a slow growing prostate cancer and feels [facility] [place] are providing such good care that he only needs to see his PCP twice a year. 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: N 03/03/22 20:18 Date Asked 02/12/24 02/12/24 09:18 AD Date Reviewed COLST On File at [facility] Yes 05/18/22 00:01 COLST Date Scanned 09/18/22 09/18/22 05:36 Code Status Resuscitation Status DNR/DNI Portal Pt does not currently have a portal and education provided: Yes Insurance Coverage/Financial Issues Insurance: Medicare Financial Issues: None identified Care Team Visit Care Team Role Provider Type Rudolph Ryan Primary Care Provider NON-[facility] STAFF PHYSICIAN Hodan Nevarez Other Providers REG OCCUPATIONAL THERAPIST InPatient Danilo Humphrey Other Providers OTHER Rudolph Chacko MD Emergency Provider [facility] STAFF PHYSICIAN Trevor Harding Admit Provider NON-[facility] STAFF PHYSICIAN Attending Provider Discharge Potential Discharge Needs: PCP F/U Appt Anticipated Barriers to Discharge: None Identified Patient/Family Education Needs: Review discharge instructions, discuss Ask Me Three Transportation: Private vehicle Plan: Gasper requires close monitoring and medical work up for TIA-Stroke, due to weakness and syncope. He is getting an MRI of his brain and an ECHO is planned for Wednesday. CM will continue to support discharge planning considerations. PFSH All Active Problems (Updated 02/12/24 @ 05:12 by Trevor Harding) Syncope and collapse (Acute) Elevated liver function tests (Acute) Generalized weakness (Acute) Umbilical hernia (Acute) Left inguinal hernia (Acute) Tricuspid regurgitation (Acute) Screening for colon cancer (Acute) Fatigue (Acute) DNR (do not resuscitate) (Acute) Ascites (Chronic) Medical History Cirrhosis BPH (benign prostatic hyperplasia) Bone metastasis Prostate cancer Ventricular tachycardia Cardiomyopathy Thrombocytopenia Iron deficiency anemia Inguinal hernia, recurrent Chronic kidney disease A-fib Congestive heart failure Lateral femoral cutaneous entrapment syndrome Nail disorder Ascites Nocturnal leg cramps Cor pulmonale Cardiorenal syndrome Corns and callus Bladder outlet obstruction Cholelithiasis Inguinal hernia GERD (gastroesophageal reflux disease) History of alcohol abuse Overweight Hyperlipidemia Anticoagulation adequate Hx of myocardial infarction 2007 Surgical History Hx of mitral valve repair (~2009) Hx of cystoscopy Hx of colonoscopy Hx of cataract surgery Hx of inguinal hernia surgery S/P CABG (coronary artery bypass graft) 2009 Social History Smoking/Tobacco Use Status: Former Tobacco Use Quit Date: 07/12/89 Tobacco: How many years used: 15 Smoking risk assessment performed?: Yes Alcohol Intake: former Drug use: Never Substance use type: does not use Housing: house Do you feel safe at home: Yes Do you feel safe in your relationship?: Yes SDOH(Care Management) Screening Will the Patient Participate in the Screening?: Yes Do you worry about having a steady place to live?: no Problems where you live: no known problems In the past 12 months, have you had to go without electric, gas, oil or water in your home?: no Have you or anyone in your house had to go without enough food to eat?: no Has lack of transportation kept you from medical appointments or from doing things needed for daily living?: no Has anyone in your support network made you feel unsafe for any reason?: no
[2024-02-12] MEDS: Liothyronine 5 MCG TAB PO ×3 (09:56→23:25)
[2024-02-12 10:59] LABS: Troponin I < 50 ng/L (< or =60)
--- NOTE | 2024-02-12 11:32 | IN_ITS ---
Date of service: 02/12/24 Time of Service: 11:10 PT Notes Visit Reasons: Syncope, CAF Inpatient Physical Therapy Evaluation I certify the need for these services as being medically necessary and skilled as furnished under this plan of treatment while under my care. Please sign and return within 14 days if you agree with the plan of care listed below.? Thank you for this referral! ? Referring Physician? Date Referring Doctor:? Trevor Harding PT Orders: PT CONSULT for weakness Precautions: fall risk Patient Profile/Admitting Diagnosis:? The patient is an 83 yo male adm on 02/12/24 with syncope and collapse at home. He had an episode of syncope with some loss of memory though he did not appear to go completely unconscious and severe diaphoresis without chest pain shortness of breath during the episode at home prior to presentation to the ED. Reports he has now slept poorly the previously 3 nights (catheter blocked, gas, then trip to ED last night). Past Medical History: Syncope and collapse (Acute) Elevated liver function tests (Acute) Generalized weakness (Acute) Umbilical hernia (Acute) Left inguinal hernia (Acute) Tricuspid regurgitation (Acute) Screening for colon cancer (Acute) Fatigue (Acute) DNR (do not resuscitate) (Acute) Ascites (Chronic) Medical History Cirrhosis BPH (benign prostatic hyperplasia) Bone metastasis Prostate cancer Ventricular tachycardia Cardiomyopathy Thrombocytopenia Iron deficiency anemia Inguinal hernia, recurrent Chronic kidney disease A-fib Congestive heart failure Lateral femoral cutaneous entrapment syndrome Nail disorder Ascites Nocturnal leg cramps Cor pulmonale Cardiorenal syndrome Corns and callus Bladder outlet obstruction Cholelithiasis Inguinal hernia GERD (gastroesophageal reflux disease) History of alcohol abuse Overweight Hyperlipidemia Anticoagulation adequate Hx of myocardial infarction 2008 Surgical History Hx of mitral valve repair (~2009) Hx of cystoscopy Hx of colonoscopy Hx of cataract surgery Hx of inguinal hernia surgery S/P CABG (coronary artery bypass graft) 2009 Former Tobacco Use Quit Date: 07/12/89 Medications: See chart Social History/Home Situation: Lives in [place] with his . 1 level home with basement with 2 or 3 steps to enter. Normally uses cane outside his home. Has a 4 wheeled rolling walker that he occasionally uses (used to attend a recently). Normally able to use the riding mower. Drives. Subjective: Reports he is feeling significantly better than upon admission. Reports he was unable to hold up his UE or LE when assessed in ED. Objective: Orthostatic vitals taken by RN during today's session. Leg back emptied prior to mobilization by RN. Mental Status: Patient is alert and oriented. Pain: No c/o pain. Vital Signs: see above. ROM/Strength: Upper extremities: WFL. 4+/5 grossly Lower extremities: WFL 4+/5 grossly Sensation: Reports no numbness or tingling. Soft tissue/edema: No gross abnormalities observed. Bed Mobility: Supine to sit min assist with HOB slightly elevated. Reports that sometimes his must assist him out of bed as well. Transfers: Sit to stand cga. Gait: Ambulated 80 feet with CGA with wide base of support and mildly unsteady. Right LE in ER. reports he has had his right LE in this position since a fall off a roof with an ankle injury. Balance: mildy unsteady in standing. [facility] AM-PAC 6 clicks Basic Mobility Inpatient Short Form: Raw Score:?18? CMS Score: 46.58% Informed Consent/Education:? Patient instructed in purpose of PT consult and plan of care and is agreeable Assessment:? Patient is an 83? year old male adm 02/12/24 on for syncope and collapse at home.? Patient presents withdecreased strength, decreased functional mobility, decreased balance and difficulty with ambulation but reports he his close to his baseline of function. The patient would benefit from skilled inpatient services to improve these impairments to maximize function and safety. Patient is assessed as:? Low 78055?complexity based on the following: History: age Examination: see above Presentation: Stable and uncomplicated? Decision Making:? Low (0 history, 1-2 exam, stable/predictable, easy 20) Physical Therapy Goals: 3 days Able to get in/out of bed with supervision only. Able to perform sit to/from stand with supervision only. Able to walk 100 feet with supervision only with/without assistive device without loss of balance. Able to go up and down 2-3 steps with 1 rail with contact guard assist only. Independent with home exercise program Plan of Care/Treatment Plan: 1-2x/day, 7 days/week x 1 week. Plan of care has been reviewed with the ASSOCIATE PROFESSOR OF LITERACY providing the service under Physical Therapy direction. Initiate Physical Therapy intervention for strengthening, bed mobility, transfers, gait, stairs, balance training, use of assistive device. DISCHARGE RECOMMENDATIONS: may benefit from outpatient PT for balance upon discharge Billing Charges: Treatment Units Time Duration Manual Therapy(60719) Hands-on techniques to modulate pain increase joint range of motion reduce or eliminate soft tissue swelling, inflammation, or restriction facilitate relaxation and improve contractile and non-contractile tissue extensibility ? ? Therapeutic Procedures (03246) Instruction in therapeutic exercises to develop strength and endurance, range of motion and flexibility. HEP instruction and review: Provided skilled instruction in proper exercise performance: Provided skilled manual cues to facilitate proper muscle recruitment and/or movement pattern Neurological Re-Education(73063) To improve balance, coordination, kinesthetic and proprioceptive sensations. ? ? Ultrasound(10658) To promote healing. ? ? Gait Training(61604) ? ? Therapeutic Activity(87193) Instruction in dynamic activities with one on one patient contact by the provider to improve functional performance as follows: ?1 ?10 Self Care Training(50258) ? ? E-Stim (Attended)(23281) ? ? Low IE(59534) 1 13 Mod IE(57352) ? ? High IE(04696) ? ? Time Coded Treatment Time ? 10 Total Treatment Time ? 23
--- NOTE | 2024-02-12 11:37 | PHACLINREV_ITS ---
Pharmacy Admission Review Admission Clinical Review Admission Pharmacy Review: Syncope and collapse (Acute) Elevated liver function tests (Acute) Generalized weakness (Acute) lisinopril Adverse Reaction (Intermediate, Verified 02/12/24 00:03) cough carisoprodol (From Soma) Adverse Reaction (Verified 02/12/24 00:03) Went crazy spironolactone Adverse Reaction (Verified 02/12/24 00:03) Hyperkalemia Resuscitation Status DNR/DNI Height 5 ft 10 in Weight 78.698 kg Comments Comments/Follow Ups: Patient does not currently have any orders for antibiotics, but urine culture from 02/10/24 is growing gram negative beverly. Reached out to provider who is aware. Pharmacy Admission Review Renal Dosing Renal Dosing: BUN 31 mg/dL (7-18) H 02/12/24 08:05 Creatinine 2.3 mg/dL (0.70-1.30) H 02/12/24 08:05 Medications needing adjustments: Intervened (CrCl 26.61 mL/min) List of meds needing interventions: Decreased Myrbetriq from 50mg daily to 25mg daily - provider aware Discontinued order for phenazopyridine (from home med list) due to CrCl < 30 - provider aware Anticoagulation Anticoagulation: Hgb 10.8 g/dL (13.5-17.5) L 02/12/24 05:24 Hct 31.8 % (40.0-50.0) L 02/12/24 05:24 Plt Count 75 10^3/uL (130-400) L 02/12/24 05:24 INR 1.2 (0.9-1.1) H 02/12/24 08:05 Creatinine 2.3 mg/dL (0.70-1.30) H 02/12/24 08:05 DVT Prophylaxis: Reviewed (SCDs + aspirin + clopidogrel) Relevant Labs Relevant Labs: Sodium 134 mmol/L (136-145) L 02/12/24 08:05 Potassium 4.0 mmol/L (3.5-5.1) 02/12/24 08:05 Chloride 98 mmol/L (98-107) 02/12/24 08:05 Magnesium 2.1 mg/dL (1.8-2.4) 02/12/24 05:24 Electrolytes, C-Reactive P, ESR: Reviewed (Na 134, AST/ALT 95/81) Cardiac Review Cardiac Review: Troponin I < 50 ng/L (< or =60) 02/12/24 10:15 Blood Pressure 98/61 0818 Blood Pressure 112/59 0627 Blood Pressure 106/63 0531 Blood Pressure 107/74 0516 Blood Pressure 101/67 0501 Blood Pressure 111/58 0446 Blood Pressure 124/43 0431 Blood Pressure 146/53 0416 Blood Pressure 119/66 0401 BP, HR, EF%: Reviewed (HR WNL) QTc Review QTc: Reviewed (549 from 02/12/24) IV to PO Switch IV Medications: Reviewed (hydrocortisone) Home Meds Home Med List reviewed: Intervened Relevent Home Meds Not ordered & why?: dexlansoprazole (has order for pantoprazole) 2 orders put in as patients own meds: ferrous gluconate 240mg and Florastor. Patients bringing in iron per nursing, is fine with patient not getting probiotic during admission. Current Meds Current Medication Order Review: Intervened Comments: Order was put in for patients home dexlansoprazole. This is non- formulary, reached out to provider who asked that it be switched for pantoprazole 40mg PO daily while patient is here. Comments Comments/Follow Ups: Patient does not currently have any orders for antibiotics, but urine culture from 02/10/24 is growing gram negative beverly. Reached out to provider who is aware.
[2024-02-12] MEDS: Hydrocortisone SOD SUC. 100 MG VIAL IVP ×2 (11:46→19:44)
[2024-02-12] MEDS: Atorvastatin 40 MG TAB PO (19:43)
[2024-02-13] MEDS: Normal Saline Flush 10 ML SYR IVP ×4 (02:47→20:05)
[2024-02-13] MEDS: Hydrocortisone SOD SUC. 100 MG VIAL IVP ×3 (02:47→17:54)
[2024-02-13 03:04] VITALS: BP 102/62; PULSE 84; RESP 16; TEMP 35.5; O2SAT 94
[2024-02-13] MEDS: Levothyroxine 50 MCG TAB PO (05:38)
[2024-02-13 07:09] VITALS: BP 124/65; PULSE 82; RESP 15; TEMP 36.1; O2SAT 95
[2024-02-13 07:18] LABS: FREE T4 0.32 ng/dL (0.76-1.46); TSH 49.97 uIU/Ml (0.36-3.74)
[2024-02-13] MEDS: Multivitamin TAB 1 TAB PO (07:42)
[2024-02-13] MEDS: Mirabegron 25 MG TABCR PO (07:42)
[2024-02-13] MEDS: Docusate Sodium 100 MG CAP 200 MG PO (07:42)
[2024-02-13] MEDS: Pantoprazole 40 MG TABCR PO (07:42)
[2024-02-13] MEDS: Liothyronine 5 MCG TAB PO ×2 (07:42→15:21)
[2024-02-13] MEDS: Ascorbic Acid 500 MG TAB PO (07:43)
[2024-02-13] MEDS: Furosemide 40 MG TAB PO ×2 (07:43→15:20)
[2024-02-13] MEDS: Losartan 50 MG TAB PO (07:44)
[2024-02-13] MEDS: Amiodarone 200 MG TAB PO (07:44)
[2024-02-13 11:06] VITALS: BP 111/65; PULSE 82; RESP 17; TEMP 36.1; O2SAT 98
--- NOTE | 2024-02-13 11:29 | PT.INTREAT ---
PT Notes Visit Reasons: Syncope, CAF Inpatient Physical Therapy Treatment Note [facility] Date: 02/13/24 SUBJECTIVE: Reports feeling much stronger today OBJECTIVE: []? VITALS: ?monitored by nsg BED MOBILITY/TRANSFERS? pt seated in recliner ? Sit-stand:S ? Stand-sit:S? Provided skilled cues and instruction on performance and technique throughout. GAIT? Assistive Device: none ? Weight bearing: full Assist: SBA/CGA? Distance:? approx 200'? Deviation: slow janay especially when turning head? Therapeutic Exercises ([id number]): Direct one-on-one instruction in therapeutic exercises to develop strength, endurance, range of motion and flexibility. ? Exercises: sit to stands x5, march ? Assistive Device: none ? Weight bearing: full Assist: SBA/CGA? Distance:? approx 200'? Deviation: slow janay especially when turning head? Provided skilled instruction in proper exercise performance ASSESSMENT:?tolerated session well. No LOB or SOB noted during session. PLAN: continue PT POC focusing on strength, endurance and functional mobility TREATMENT CODE/TIME: 10min DISCHARGE RECOMMENDATION: home with when medically cleared
--- NOTE | 2024-02-13 11:39 | W.PM.PROGNOT ---
Date of Service Date of service: 02/13/24 Time of Service: 11:40 Assessment and Plan Assessment and plan (1) Syncope and collapse: Status: Acute Assessment and plan: no further episode and remains at baseline work up unrevealing thus far echocardiogram and Brain MRI pending for Wednesday continue to monitor on telemetry fall precautions. (2) Generalized weakness: Status: Acute Assessment and plan: Nonspecific the patient having generalized weakness overall over the last weeks with decreased intake of food and fluids. His CKD is slightly worse and he will be given gentle IV hydration if he can improve his creatinine and possibly be a candidate for IV for further studies. (3) A-fib: Assessment and plan: rate controlled, continue telemetry monitoring continue amiodarone not anticoagulated, Qualifiers: Atrial fibrillation type: longstanding persistent Qualified Code(s): I48.11 - Longstanding persistent atrial fibrillation (4) Cardiomyopathy: Assessment and plan: Patient has had progressive decreased and left and right ventricular function most likely secondary to ischemic disease, continue outpatient medical regimen. Qualifiers: Cardiomyopathy type: ischemic Qualified Code(s): I25.5 - Ischemic cardiomyopathy (5) Congestive heart failure: Assessment and plan: Continue diuretics monitoring labs. 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 He has associated thrombocytopenia. 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 He does have chronic indwelling Lazo catheter through his penis. This was just changed on 02/10/2024. (8) Prostate cancer: Assessment and plan: With stable, unmeasurable PSA and bone metastases in the pelvis. (9) Chronic kidney disease: Assessment and plan: Stage IV which may limit IV dye studies or evaluation is trend labs with gentle IV hydration reevaluate for eligibility for CTA of the head and neck. The patient does not have diabetes Qualifiers: Chronic kidney disease stage: stage 4 (severe) Qualified Code(s): N18.4 - Chronic kidney disease, stage 4 (severe) (10) Hypothyroidism: Status: Chronic Assessment and plan: TSH elevated at 100, now down to 48 with current treatment. continue levothyroxine 50 mcg daily, with liothyronine 5 mcg q8h for 3 days, will need close outpatient follow up of labs and med adjustment as needed. cortisol levels pending., continue stress dose steroids until results available. discussed with DR Robert Subjective Subjective Patient reports: no new complaints, feels better, tolerating liquids well, tolerating a regular diet and afebrile; denies shortness of breath Objective Last Vital Signs Temp 36.1 C L 02/13/24 11:06 Pulse 82 02/13/24 11:06 Resp 17 02/13/24 11:06 BP 111/65 02/13/24 11:06 Pulse Ox 98 02/13/24 11:06 Laboratory Results - last 24 hr 02/13/24 05:57 TSH 49.97 H Free T4 0.32 L Time Spent with Patient Time Spent with Patient: 35-49 minutes Time was spent: preparing to see the patient(eg.review tests), obtaining and/or reviewing separately otained hiistory, ordering medications,tests, procedures, indepentently interpreting results and counseling the patient
[2024-02-13 15:02] VITALS: BP 109/71; PULSE 82; RESP 17; TEMP 36.4; O2SAT 98
[2024-02-13] MEDS: Atorvastatin 40 MG TAB PO (20:06)
[2024-02-13] MEDS: Docusate Sodium 100 MG CAP PO (20:06)
[2024-02-14] VITALS (8 sets, daily range): BP systolic 99–123; BP diastolic 61–78; PULSE 78–87; RESP 17–20; TEMP 36–37; O2SAT 96–97
--- NOTE | 2024-02-14 | DI.US_ITS ---
Exam(s) US CAROTID EXAM: US CAROTID CLINICAL HISTORY: Syncope with generalized weakness. TECHNIQUE: Ultrasound carotids performed using grayscale, color-flow, and spectral Doppler imaging. COMPARISON: No exams were available for comparison FINDINGS: RIGHT CAROTID ARTERY: Plaque: Mild calcific plaque in the distal right CCA. [id number] calcific plaque at the common carotid and proximal ICA. Velocity elevation: None. LEFT CAROTID ARTERY: Plaque: Mild scattered calcific plaque at the distal common carotid artery. Minimal plaque at the pr oximal internal and external carotid arteries. Proximal ICA is tortuous. Velocity elevation: None. VERTEBRAL ARTERIES: Antegrade flow. IMPRESSION: Calcific plaque, greatest at distal right common carotid artery and proximal right internal carotid a rtery. No evidence for hemodynamically significant carotid stenosis. Criteria for Carotid Stenosis: Normal: ICA PSV <125 cm/s no plaque or intimal thickening is visible. <50% stenosis: ICA PSV <125 cm/s and plaque or intimal thickening is visible. 50-69% stenosis: ICA PSV is 125-250 cm/s and plaque is visible. >70% stenosis to near occlusion: ICA PSV >250 cm/s with visible plaque and luminal narrowing. DATA REPOSITORY:
[2024-02-14] MEDS: Liothyronine 5 MCG TAB PO ×3 (00:12→16:32)
[2024-02-14] MEDS: Normal Saline Flush 10 ML SYR IVP ×5 (02:55→18:51)
[2024-02-14] MEDS: Hydrocortisone SOD SUC. 100 MG VIAL IVP ×3 (02:56→18:50)
[2024-02-14] MEDS: Pantoprazole 40 MG TABCR PO (06:28)
[2024-02-14] MEDS: Levothyroxine 50 MCG TAB PO (06:28)
[2024-02-14 07:27] LABS: FREE T4 0.36 ng/dL (0.76-1.46)
[2024-02-14] MEDS: Aspirin E.C. 81 MG TABEC PO (07:36)
[2024-02-14] MEDS: Ascorbic Acid 500 MG TAB PO (07:36)
[2024-02-14] MEDS: Amiodarone 200 MG TAB PO (07:36)
[2024-02-14] MEDS: Clopidogrel 75 MG TAB PO (07:37)
[2024-02-14] MEDS: Mirabegron 25 MG TABCR PO (07:37)
[2024-02-14] MEDS: Multivitamin TAB 1 TAB PO (07:38)
[2024-02-14] MEDS: Losartan 50 MG TAB PO (07:38)
[2024-02-14] MEDS: Docusate Sodium 100 MG CAP 200 MG PO (07:39)
[2024-02-14] MEDS: Furosemide 40 MG TAB PO ×2 (07:39→16:32)
--- NOTE | 2024-02-14 08:00 | DI.MRI_ITS ---
Exam(s) MR BRAIN WO EXAM: MR BRAIN WO CLINICAL HISTORY: Syncope with CAF off anticoagulation TECHNIQUE: Multiplanar multisequence MRI of the brain was performed. COMPARISON: CT CT HEAD WO from 02/12/2024 FINDINGS: CEREBRAL PARENCHYMA: There is no evidence of intracranial hemorrhage, mass effect, or shift of midline structures. There are no extra-axial fluid collections. Ventricles are not enlarged or shifted. There is evidence of prior infarct in the inferior aspect of the left cerebellar hemisphere. There i s no evidence of restricted diffusion at this level, nor elsewhere in the brain. No other similar fi nding in the opposite-right cerebellar hemisphere. There is no signal abnormality in the elizabeth and mi dbrain and thalami. There are multiple foci of small white matter signal abnormality on FLAIR images, not associated with hemorrhage, surrounding edema, nor restricted diffusion. SWI: No evidence of microhemorrhages. DWI: No areas of restricted diffusion in the brain. PITUITARY GLAND: No mass nor parasellar abnormality. No obvious abnormality in the cavernous sinuses. FLOW VOIDS: The expected flow void are noted. No evidence of obvious aneurysm nor obvious vascular ma lformation. At the skull base the left vertebral artery is noted to be dominant. PARANASAL SINUSES: There is a post inflammatory retention cyst in the posterior aspect of the left ma xillary sinus which measures 1.5 by 2 by 2 cm. Right maxillary sinus is clear as are the other paran elma sinuses. ORBITS: Prior bilateral cataract surgery. IMPRESSION: There is a non acute appearing infarct in the inferior left cerebellar hemisphere. This is territory of the left posterior inferior cerebellar artery. 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 DATA REPOSITORY:
--- NOTE | 2024-02-14 09:30 | DI.US_ITS ---
APPROVED REPORT EXAM: Comprehensive 2D, Doppler, and color-flow Echocardiogram Patient Location: In-Patient Room/Bed: 214 Laboratory Analyst: Boris Cook RDCS (AE) Indications: Syncope with CVA off anticoagulation, history of CABG and MVR Echo Enhancing Agent Indication: Rule out Shunt Agent(s) / Amount(s) Used: Agitated Saline 30.0 cc Comments: Contrast study was performed with 3 IV injections of 10ccs of agitated normal saline, at re st, with cough and post valsalva maneuver. Negative contrast study for shunt flow. Conclusion Normal left ventricular wall thickness and chamber size. Ejection fraction is 30%. There is global hypokinesis Right ventricle is mildly to moderately enlarged Both atria are severely dilated No intracardiac shunting is identified with injection of agitated saline Trileaflet aortic valve with mild regurgitation There is a mitral valve repair with an annuloplasty ring. There is trace mitral regurgitation Normal tricuspid valve with moderate regurgitation. Estimated right ventricular systolic pressure is 38 mmHg Echo findings are similar to that from July 2023 Wall motion Left Ventricle The left ventricle is normal size. Left ventricular systolic function is decreased. There is normal l eft ventricular wall thickness. There is global hypokinesis of the left ventricle. There is no ventri cular septal defect visualized. LVEF is 30%. Right Ventricle Right ventricle is mild to moderately dilated. Right ventricular systolic function is grossly normal. Atria Left atrium is severely dilated. Right atrium is severely dilated. The interatrial septum is intact w ith no evidence for an atrial septal defect. Saline bubble contrast intravenous injection does not de monstrate PFO. Aortic Valve The aortic valve is normal in structure. Aortic valve is trileaflet. There is no aortic valvular sten osis. Mild aortic regurgitation. Mitral Valve Mitral valve has been repaired. No evidence of mitral valve stenosis. Trace mitral regurgitation. Tricuspid Valve The tricuspid valve is normal in structure. There is no tricuspid valve stenosis. Moderate tricuspid regurgitation. The RVSP is 38.3 mmHg. Pulmonic Valve The pulmonary valve is normal in structure. There is no pulmonic valvular stenosis. Trace pulmonic re gurgitation. Great Vessels The aortic root is normal in size. The ascending aorta is normal in size. Aortic arch is normal in ca liber. IVC is normal in size and collapses >50% with inspiration. Pericardium There is no pericardial effusion. 2D Dimensions IVSD d PLAX 1.12 cm M: 0.6-1.2 Ao Root d 3.76 cm M: 3.1 - 3.7 LVPW d PLAX 1.07 cm M: 0.6 - 1.2 Ao Asc Diam d 3.48 cm M: 2.6 - 3.4 LVID d PLAX 5.65 cm M: 4.2 - 5.8 LVDs 4.81 cm M: 2.5 - 4.0 LV EF Teichholz 31.2 % FS 14.94 % LV EDV (Teich) 157.0 mL LV ESV (Teich) 107.9 mL Stroke Vol Index (Teich) 25.03 M-Mode TAPSE 0.46 cm (M/F) >1.7 Auto EF LV EDV A4C 108.9 mL LV EDV A2C 143.3 mL LV EDV BP 133.2 mL LV ESV A4C 78.5 mL LV ESV A2C 104.1 mL LV ESV BP 95.5 mL LVEF(%) A4C 27.9 % LVEF(%) A2C 27.3 % LVEF(%) BP 28.3 % LV SV A4C 30.4 ml LV SV A2C 39.2 ml LV SV BP 37.7 ml LV CO A4C 2.6 L/min LV CO A2C 3.3 L/min LV CO BP 3.0 L/min HR A4C 86.13 BPM HR A2C 84.32 BPM LV EDV Index (BP) LA Volume LA Length A4C 8.1 cm LA Length A2C 7.5 cm LA Area A4C s 55.31 cm2 LA Area A2C s 50.21 cm2 LA Vol A4C A-L 319.42 mL LA Vol A2C A-L 283.86 mL LA Vol Biplane A-L 312.7 mL LA Vol/BSA A4C A-L LA Vol/BSA A2C A-L LA Vol/BSA BP A-L 159.5 mL/m2 LA Vol A4C MOD 293.8 mL LA Vol A2C MOD 260.8 mL LA Vol BP MOD 287.1 mL RA Volume RA Area A4C 18.9 cm2 RA ESV A4C (A-L) 46.7mL RA Vol/BSA A4C A-L RA Length A4C 6.5 cm RA ESV A4C (MOD) 42.8mL LV Diastology MV E' medial 0.083 (>0.07 m/s) MV E Vmax 1.53 (0.4-1.3 m/s) MV E' lateral 0.151 (>0.1 m/s) Aortic Valve AoV Vmax 1.20 m/s LVOT Vmax 0.69 m/s AoV Peak Grad 38.5 mmHg LVOT Peak Grad 1.9 mmHg AoV Area (Vmax) 1.82 cm2 LVOT VTI 0.155 m AoV VTI 0.258 m LVOT Mean Grad 1.0 mmHg AoV Mean [place]. 0.82 m/s LVOT SV 49.10 mL AoV Mean Grad 3.1 mmHg LVOT Diam s 2.00 cm AoV Area (VTI) 1.91 cm2 AV Regurg Peak Gr. 5.78 mmHg Velocity Ratio 0.57 AR Decel [place] 2.1m/sec2 AR DT 1978 msec AR PHT 574 msec AR Vmax 4.22 m/s Mitral Valve MV Vmax TIPS 1.36 m/s MR Vmax 5.10 m/s MV Mean Grad 3.2 (<2mmHg) MR VTI 1.264 m MV VTI 0.343 m MR Peak Grad 104.2 mmHg MR Mean Grad 52.9 mmHg Pulmonary Valve PV Vmax 0.67 (0.5-1.5 m/s) RVOT Vmax 0.50 m/s PV Peak Grad 1.8 mmHg RVOT Peak Gr. 1.0 mmHg PV Mean [place] 0.50 m/s RVOT VTI 0.138 m PV Mean Grad 1.1 mmHg RVOT Mean Gr. 0.7 mmHg Tricuspid Valve RA Pressure 3.00 mmHg TR Vmax 2.97 m/s TR Peak Grad 35.2 mmHg RVSP (TR) 38.3 mmHg
--- NOTE | 2024-02-14 10:05 | PDOC.CMPRO ---
Date of service: 02/14/24 Time of Service: 10:05 Care Management Progress Note Progress Note Text Progress Note Text: TIA/Stroke work up being done. Results pending. No change to overall discharge plan. Home with outpatient PT, if needed. Pt has no questions or concerns at this time. CM will follow. Discharge Potential Discharge Needs: PT Evaluation (Out patient PT is recommended.), PCP F/U Appt and Other (Needs thyroid follow up) Anticipated Barriers to Discharge: None Identified Patient/Family Education Needs: Review discharge instructions, discuss Ask Me Three Transportation: Private vehicle Plan: Pt is currently awaiting results of ECHO, brain MRI and labs from this morning. Anticipate, pt will discharge home via private vehicle with when medically cleared by provider. He will follow up with community providers and his discharge plan of care as recommended. CM will continue to support discharge planning considerations. SDOH(Care Management) Screening Will the Patient Participate in the Screening?: Yes Do you worry about having a steady place to live?: no Problems where you live: no known problems In the past 12 months, have you had to go without electric, gas, oil or water in your home?: no Have you or anyone in your house had to go without enough food to eat?: no Has lack of transportation kept you from medical appointments or from doing things needed for daily living?: no Has anyone in your support network made you feel unsafe for any reason?: no
--- NOTE | 2024-02-14 10:27 | PGE_ITS ---
Date of Service Date of service: 02/14/24 Time of Service: 10:27 Assessment and Plan Assessment and plan (1) Syncope and collapse: Status: Acute Assessment and plan: no further episode since admission now at baseline Continue telemetry fall precautions. Echocardiogram showing HFrEF at 30 % w/o PFO -Cardiology consult ordered Brain MRI completed: -There is a non acute appearing infarct in the inferior left cerebellar hemisphere. This is territory of the left posterior inferior cerebellar artery. -Post inflammatory retention cyst in left maxillary sinus measuring 15 x 20 x 20 mm noted. [facility] tele-neurology consult Outpatient ENT consult (2) Cardiomyopathy: Assessment and plan: continue current management and as above Qualifiers: Cardiomyopathy type: ischemic Qualified Code(s): I25.5 - Ischemic cardiomyopathy (3) Congestive heart failure: Assessment and plan: As above Qualifiers: Heart failure type: right heart failure due to left heart failure Qualified Code(s): I50.814 - Right heart failure due to left heart failure (4) Generalized weakness: Status: Acute Assessment and plan: Improving, Cr 2.5 from 2.3, NS at 50 cc/hrs for 6 hours then stop, decreased oral intake reported DIAGNOSTIC CARDIAC 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 He has associated thrombocytopenia. Qualifiers: Ascites presence: with ascites Hepatic cirrhosis type: alcoholic cirrhosis Qualified Code(s): K70.31 - Alcoholic cirrhosis of liver with ascites (7) Bladder outlet obstruction: Assessment and plan: Chronic indwelling Elkins catheter changed on 02/10/2024. (8) Prostate cancer: Assessment and plan: With stable, unmeasurable PSA and bone metastases in the pelvis. (9) Chronic kidney disease: Assessment and plan: Stage IV Creatinine up to 2.5, slow IV hydration with limited volume to 500 mL Furosemide 40 Mg orally twice daily-AM dose on hold BMP in a.m. Qualifiers: Chronic kidney disease stage: stage 4 (severe) Qualified Code(s): N18.4 - Chronic kidney disease, stage 4 (severe) (10) Hypothyroidism: Status: Chronic Assessment and plan: Continue levothyroxine 50 mcg daily, with liothyronine 5 mcg q8h for 3 days, TSH was 101 on 02/12/2024 now 48.70. T4 was 0.36?level in AM. TSH level in a.m. Outpatient follow up of labs and med adjustment as needed. cortisol levels is 16?now within range. Considering stopping stress dose steroids?on hold (11) Leukocytosis: Status: Acute Assessment and plan: WBC 11.59 from < 5 (new) Chronic elkins changed 3 days ago as per patient UA positive on 02/10/2024 w/o leukocytosis this may also be due to stress dose steroids Urine growing GNR Will start ceftriaxone 1 gm IV Q24 CBC in AM UA pending Discussed with DR Robert Subjective Subjective Patient reports: no new complaints, feels better, tolerating liquids well, tolerating a regular diet, voiding w/o difficulty (home indwelling cath in place ) and bowel movement; denies diarrhea, blood in stool, nausea, vomiting, shortness of breath or fever Exam Narrative Exam Narrative: Constitutional The patient is sitting in chair comfortable, spouse in the room Neuro:alert and oriented to self X4. No neurological focal deficit Resp: Normal respiratory pattern, speaks in full sentences, unlabored breathing, clear lung bilaterally Cardio: Tele: A-Fib HR 86, S1, S2, no murmur,positive pulses to all 4 ext. GI: Abdomen is not distended, soft and non tender, bowel sounds are present Extremities: strength 5/5 to bilateral lower and upper extremities Psych: RASS 0, congruent mood and normal affect. Objective Last Vital Signs Temp 37.0 C 02/14/24 07:37 Pulse 78 02/14/24 07:37 Resp 17 02/14/24 07:37 BP 114/69 02/14/24 07:37 Pulse Ox 96 02/14/24 07:37 Laboratory Results - last 24 hr 02/12/24 02/12/24 02/12/24 08:05 10:15 10:45 TSH Free T4 Cortisol 16 Cortisol 30 Minute 29 Cortisol 60 Minute 35 02/14/24 06:34 TSH 48.70 H Free T4 0.36 L Cortisol Cortisol 30 Minute Cortisol 60 Minute Time Spent with Patient Time Spent with Patient: >50 minutes Time was spent: preparing to see the patient(eg.review tests), obtaining and/or reviewing separately otained hiistory, ordering medications,tests, procedures, referring, communicating with other health critical care nurse practitioner, indepentently interpreting results and counseling the patient
[2024-02-14 12:08] LABS: Abs Immature Grans 0.16 10^3/uL (0.0-0.06); Absolute Basophil Count 0.01 10^3/uL (0.0-0.2); Absolute Lymphocyte Count 0.27 10^3/uL (1.2-3.4); Absolute Monocyte Count 0.75 10^3/uL (0.1-0.8); Basophils % 0.1 %; HCT 35.5 % (40.0-50.0); HGB 12.1 g/dL (13.5-17.5); Immature Grans % 1.4 %; Lymphocytes % 2.3 %; MCH 31.4 pg (27.0-33.0); MCHC 34.1 % (32.0-36.0); MCV 92 fL (80-95); MPV 11.3 fL (8.0-11.0); Monocytes % 6.5 %; Neutrophils % 89.7 %; Platelet Count 117 10^3/uL (130-400); RBC 3.85 10^6/uL (4.36-5.78); RDW 14.5 % (11.8-14.1); RDW-SD 48.8 fL; WBC 11.59 10^3/uL (4.4-10.8)
[2024-02-14 12:21] LABS: Anion Gap 13.2 mmol/L (3-11); BUN 48 mg/dL (7-18); CO2 24.8 mmol/L (21.0-32.0); CREATININE 2.5 mg/dL (0.70-1.30); Calcium 9.1 mg/dL (8.5-10.1); Chloride 96 mmol/L (98-107); Estimated GFR 24.72 (mL/min/1.73m2); Glucose 167 mg/dL (74-106); Potassium 3.8 mmol/L (3.5-5.1); Sodium 134 mmol/L (136-145)
--- NOTE | 2024-02-14 15:00 | OT.INIE ---
Occupational Therapy Notes Inpatient Occupational Therapy Evaluation Date: 02/14/24 Referring Doctor:Dr. Harding OT Orders: Non urgent, Fall, Standard, DNR/DNI PATIENT PROFILE/ADMITTING DIAGNOSIS: Pt is an 83 year old male who was admitted for generalized weakness with syncope and collapse. He is currently waiting on test results to see what his next step will be. Past Medical History: Syncope and collapse (Acute) Elevated liver function tests (Acute) Generalized weakness (Acute) Umbilical hernia (Acute) Left inguinal hernia (Acute) Tricuspid regurgitation (Acute) Screening for colon cancer (Acute) Fatigue (Acute) DNR (do not resuscitate) (Acute) Ascites (Chronic) Medical History Cirrhosis BPH (benign prostatic hyperplasia) Bone metastasis Prostate cancer Ventricular tachycardia Cardiomyopathy Thrombocytopenia Iron deficiency anemia Inguinal hernia, recurrent Chronic kidney disease A-fib Congestive heart failure Lateral femoral cutaneous entrapment syndrome Nail disorder Ascites Nocturnal leg cramps Cor pulmonale Cardiorenal syndrome Corns and callus Bladder outlet obstruction Cholelithiasis Inguinal hernia GERD (gastroesophageal reflux disease) History of alcohol abuse Overweight Hyperlipidemia Anticoagulation adequate Hx of myocardial infarction 2007 Surgical History Hx of mitral valve repair (~2009) Hx of cystoscopy Hx of colonoscopy Hx of cataract surgery Hx of inguinal hernia surgery S/P CABG (coronary artery bypass graft) 2009 Former Tobacco Use Quit Date: 07/12/89 Social History/Home Situation: Pt lives in a private home with his . He notes that he has 4 steps to the sunroom and 2 to get into his home. They have steps to their basement which he does not need to go into. Equipment owned/DME: Grab bars, FWW< cane, raised toilet seat, his daughter has a shower seat that he will use SUBJECTIVE: Pt was sitting in chair with his present in the room, he is agreeable to OT consult and notes that he would like to return home as his next steps. OBJECTIVE: General Observation: Pleasant, elkins in place, IV in (L) UE Mental Status: A&Ox3 Pain: no c/o pain ROM: RUE AROM WFL L UE AROM WFL STRENGTH: RUE 4-/5 throughout LUE 4+/5 throughout FUNCTIONAL MOBILITY/ADLS: BATHING max (A) Set up/clean up Bathing UE (I) Bathing LE Mod-Max (A) d/t bending forward DRESSING sitting in chair Dressing UE (I) Dressing LE Able to perform (I) but admits that bending forward makes him dizzy which limits him in LE dressing and bathing GROOMING seated position (I) TOILETING Elkins in place no issues getting on and off toilet EATING seated in chair (I) BALANCE: Static sitting Normal Dynamic Sitting Normal Static Standing Good Dynamic Standing Good INFORMED CONSENT/EDUCATION: Pt instructed in purpose of OT Consult and plan of care. ASSESSMENT: Patient is a 83-year-old male referred to occupational therapy services with diagnosis of generalized weakness, fatigue, syncope and collapse. Patient presents with clinical signs and symptoms consistent with dx, as demonstrated by the following impairment level findings/functional limitations: Impairments in ADL/IADL and leisure activities, decreased functional activity tolerance but pt and his feel that he is at his baseline level of function. He states that he would like to return home when medically cleared. Patient is assessed as a Low 27028 complexity based on the following: History: see above Examination: see functional limitations as noted above Presentation: evolving Decision Making: low complexity GOALS N/A seen for OT consult only PLAN OF CARE/TREATMENT PLAN: Seen for OT consult only.. DISCHARGE RECOMMENDATIONS Home when medically cleared per MD. TREATMENT TIME/MINUTES/CODES 95118, 20 min Hodan Nevarez OTR/[facility] [place], [place]
--- NOTE | 2024-02-14 15:21 | PT.INTREAT ---
PT Notes Visit Reasons: Syncope, CAF Inpatient Physical Therapy Treatment [facility] Date:02/14/2024 PRECAUTIONS: SUBJECTIVE: pt reclined in chair , present. He reports I had a very busy morning having tests done. Now I am just waiting for the results. OBJECTIVE: ? PAIN: denies VITALS: ? Pre-Treatment: monitored by nursing telemetry ? Post-Treatment: monitored by Nursing Telemetry Therapeutic Activities (24320q[1]): Direct one-on-one instruction in dynamic activities to improve functional performance. ? BED MOBILITY/TRANSFERS? Sit-stand: SBA with cue for use of hands from chair ? Stand-sit: independent? Bed-Chair: SBA ? Chair-bed: SBA Provided skilled cues and instruction on performance and technique throughout. ? GAIT? Assistive Device: None? Weight bearing: full Assist: SBA ? Distance:? 220 ? Deviation: occassional cross over step early heel off foot flat at weight acceptance. Non-skid socks ? STAIRS:SBA 2 steps x 2 with 1 rail ascending B rail descending ? Therapeutic Exercises (17149d2): Direct one-on-one instruction in therapeutic exercises to develop strength, endurance, range of motion and flexibility. ? Exercises ? stand marching x 2 sets of 5 reps, mini squats without UE support 2 sets of 5 reps Sit to stand x 10 reps from 21 height heel raises 2 sets 5 reps Provided skilled instruction in proper exercise performance Provided skilled manual cues to facilitate proper muscle recruitment and/or form: [] ASSESSMENT:?Pt able to participate in stair training this session able to verbalize safe instruction on stairs. He demonstrated carryover of hand placement for sit to stand from chair after initial cueing to push up from chair. Pt noted ewith mild NAVARRETE after standing therex which resolved within 1 min of completion of therex. PLAN: continue strengthening , transfers, balance and gait including stairs TREATMENT CODE/TIME: 62652 x 1 16 mins ; 29980 x 2/ 25 mins DISCHARGE RECOMMENDATION: home with when medically stable
[2024-02-14] MEDS: cefTRIAXone 1 GM/50 ML BAG IVPB (16:31)
[2024-02-14] MEDS: Normal Saline 1,000 ML 50 ML IV (16:31)
[2024-02-14 18:17] LABS: Lab Add On Test DONE
[2024-02-14 18:27] LABS: Calculated LDL 161 mg/dL (<100); Cholesterol 235 mg/dL (<200); HDL Cholesterol 41 mg/dL (40-60); Triglyceride 167 mg/dL (<150)
[2024-02-14] MEDS: Atorvastatin 40 MG TAB PO (19:19)
[2024-02-14] MEDS: Docusate Sodium 100 MG CAP PO (19:20)
[2024-02-15] MEDS: Liothyronine 5 MCG TAB PO (00:02)
[2024-02-15 03:55] VITALS: BP 118/94; PULSE 82; RESP 17; TEMP 36.5; O2SAT 97
[2024-02-15 04:11] LABS: Bilirubin Negative (Negative); Blood Trace-intact (Negative); Clarity Clear (Clear); Glucose Negative (Negative); Ketones Negative (Negative); Leukocyte Esterase Negative (Negative); Nitrite Negative (Negative); Specific Gravity 1.015 (1.005-1.025); Urobilinogen 0.2 mg/dL (Up to 0.2)
[2024-02-15 04:22] LABS: Bacteria Negative HPF (Negative); C & S Indicated? No; Casts Negative LPF (Negative); Crystals Negative HPF (Negative); Epithelial Cells Rare HPF (Negative); Mucus Negative (Negative); Other Cells Few Renal (Negative); WBC Negative HPF (0-5)
[2024-02-15] MEDS: Levothyroxine 50 MCG TAB PO (06:15)
[2024-02-15 07:18] VITALS: BP 120/74; PULSE 77; RESP 16; TEMP 36.9; O2SAT 98
[2024-02-15 07:37] LABS: FREE T4 0.33 ng/dL (0.76-1.46); TSH 31.44 uIU/Ml (0.36-3.74)
[2024-02-15] MEDS: Docusate Sodium 100 MG CAP 200 MG PO (07:54)
[2024-02-15] MEDS: Ascorbic Acid 500 MG TAB PO (07:55)
[2024-02-15] MEDS: Mirabegron 25 MG TABCR PO (07:55)
[2024-02-15] MEDS: Losartan 50 MG TAB PO (07:55)
[2024-02-15] MEDS: Multivitamin TAB 1 TAB PO (07:55)
[2024-02-15] MEDS: Pantoprazole 40 MG TABCR PO (07:55)
[2024-02-15] MEDS: Amiodarone 200 MG TAB PO (07:56)
[2024-02-15] MEDS: Normal Saline Flush 10 ML SYR IVP (07:59)
[2024-02-15 11:32] VITALS: BP 90/62; PULSE 89; RESP 20; TEMP 36.5; O2SAT 97
[2024-02-15 11:45] VITALS: BP 100/56
--- NOTE | 2024-02-15 12:22 | PDOC.CMPRO ---
Date of service: 02/15/24 Time of Service: 12:22 Care Management Progress Note Discharge Potential Discharge Needs: Imaging/labs (ECHO, MRI, labs: TSH level), PT Evaluation and PCP F/U Appt (Thyroid F/U) Anticipated Barriers to Discharge: None Identified Patient/Family Education Needs: Review discharge instructions, discuss Ask Me Three Transportation: Private vehicle Plan: Gasper will discharge home via private vehicle with when medically cleared by provider. He will follow up with community providers and his discharge plan of care as recommended, including lab draws for outpatient monitoring and medication adjustments. CM will continue to support discharge planning considerations. SDOH(Care Management) Screening Will the Patient Participate in the Screening?: Yes Do you worry about having a steady place to live?: no Problems where you live: no known problems In the past 12 months, have you had to go without electric, gas, oil or water in your home?: no Have you or anyone in your house had to go without enough food to eat?: no Has lack of transportation kept you from medical appointments or from doing things needed for daily living?: no Has anyone in your support network made you feel unsafe for any reason?: no
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
--- NOTE | 2024-02-15 13:55 | PT.INTREAT ---
PT Notes Visit Reasons: Syncope, CAF Inpatient Physical Therapy Treatment Note [facility] Date:02/15/2024 PRECAUTIONS: Telemetry in place SUBJECTIVE: pt reclined in chair , present. He reports I am still waiting for the linseed cake trimmer consult. I feel good today. OBJECTIVE: ? PAIN: denies VITALS: ? Pre-Treatment: monitored by nursing telemetry ? Post-Treatment: monitored by Nursing Telemetry Therapeutic Activities (41628o[1]): Direct one-on-one instruction in dynamic activities to improve functional performance. ? BED MOBILITY/TRANSFERS? Sit-stand: SBA with cue for use of hands from chair ? Stand-sit: independent? Bed-Chair: SBA ? Chair-bed: SBA Provided skilled cues and instruction on performance and technique throughout.? GAIT? Assistive Device: None? : Non skid socks? Weight bearing: full Assist: SBA ? Distance:? 220 ? Deviation: slight stagger step during narrow space management ? Exercises ? stand marching 10 reps, mini squats without UE support 2 sets of 5 reps Sit to stand x 10 reps from 21 height heel raises 10 reps Provided skilled instruction in proper exercise performance Provided skilled manual cues to facilitate proper muscle recruitment and/or form ASSESSMENT:?Pt demonstrate one LOB with stagger step during ambulation through narrow space( shoulder width) He was able to regain without physical assistance.He requires cues for CECILIA to improve stability. He demonstrated B ankle instability during this LOB near the end of the 220 ft distance. His will bring in his shoes in as pt reported at end of session he wears shoes at all times for walking. PLAN: continue strengthening , transfers, balance and gait including stairs TREATMENT CODE/TIME: 54065 x 1 16 mins DISCHARGE RECOMMENDATION: home with when medically stable
== END 2024-02-15 14:19 | disposition home or self-care (01) | DRG 312 ==
LOC: ER 02-12 05:35 → MS 02-12 07:33
PROVIDERS: Internal Medicine; Nurse Practitioner Acute Care; Admitting Provider Family Medicine; Emergency Provider Emergency Medicine; PCP Internal Medicine; Visit Provider Family Medicine
DX: R55 Syncope and collapse (principal); I48.11 Longstanding persistent atrial fibrillation; N18.4 Chronic kidney disease, stage 4 (severe); N13.8 Other obstructive and reflux uropathy; C79.51 Secondary malignant neoplasm of bone; R53.1 Weakness; I25.5 Ischemic cardiomyopathy; I50.814 Right heart failure due to left heart failure; K70.31 Alcoholic cirrhosis of liver with ascites; N32.0 Bladder-neck obstruction; C61 Malignant neoplasm of prostate; E03.9 Hypothyroidism, unspecified; D72.829 Elevated white blood cell count, unspecified; D69.6 Thrombocytopenia, unspecified; I25.2 Old myocardial infarction; R26.81 Unsteadiness on feet; N40.1 Benign prostatic hyperplasia with lower urinary tract symptoms; Z95.5 Presence of coronary angioplasty implant and graft; Z95.1 Presence of aortocoronary bypass graft; F10.11 Alcohol abuse, in remission; Z66 Do not resuscitate; D50.9 Iron deficiency anemia, unspecified; K21.9 Gastro-esophageal reflux disease without esophagitis; E78.5 Hyperlipidemia, unspecified; I27.81 Cor pulmonale (chronic); I08.2 Rheumatic disorders of both aortic and tricuspid valves; Z95.818 Presence of other cardiac implants and grafts; J34.1 Cyst and mucocele of nose and nasal sinus
CPT/HCPCS: 00123; 36415; 80048; 80053; 80061; 82533; 85027; 87206; 87637; 93005; 93306; 96361; 96374; 96375; 96376; 97110; 97161; 97530; 99285; 70450; 70551; 71046; 81003; 81015; 82140; 83735; 84439; 84443; 84484; 85025; 85610; 93010; 93880; 99223; 99232; 99233; 99239; G0378; J0650; J0696; J0834; J1720

== ENCOUNTER → 2024-02-15 08:10 | Outpatient (BNVA) | payer MEDICARE, SELFPAY ==
--- NOTE | 2024-02-15 14:59 | W.CARDCONSUL ---
Date of service: 02/15/24 Time of Service: 12:20 Assessment and Plan Assessment and plan (1) Generalized weakness: Status: Acute Assessment and plan: Patient presented with profound weakness and collapse. It is unclear if he actually fainted. I suspect the event was multifactorial. Overall I have no specific cardiac recommendations. Will plan to follow-up as scheduled in clinic (2) Cardiomyopathy: Assessment and plan: Longstanding LV dysfunction. He does not have symptoms or findings of heart failure Qualifiers: Cardiomyopathy type: ischemic Qualified Code(s): I25.5 - Ischemic cardiomyopathy (3) A-fib: Assessment and plan: Patient has permanent atrial fibrillation. He is not anticoagulated because of urinary tract bleeding. Qualifiers: Atrial fibrillation type: longstanding persistent Qualified Code(s): I48.11 - Longstanding persistent atrial fibrillation (4) S/P CABG (coronary artery bypass graft): Assessment and plan: No recent symptoms to suggest angina. Last cardiac catheterization was in 2018 History of Present Illness History of Present Illness Chief Complaint: Weakness Narrative: This is an 83-year-old male presenting to the hospital several days ago after he tried walking from his living room to the bedroom and collapsed on the bed. He said he was profoundly weak and could not continue. It is unclear if he lost consciousness. He was brought to the emergency room and was admitted. Initially he was felt to be somewhat volume depleted. He has improved significantly. He has had multiple tests performed. 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 He had atherosclerotic carotid disease bilaterally but no significant stenoses. His echocardiogram was updated. He has longstanding LV dysfunction. EF was purported to be 30% which is slightly worse than his chronic 35 to 40%. He has global hypokinesis. He has very dilated atria, chronic atrial fibrillation, history of ventricular tachycardia maintained on amiodarone, and prostate cancer metastatic to bone. He has an indwelling Lazo catheter, chronic hematuria. His anticoagulation was discontinued a couple of years ago because of urinary tract bleeding. He also has cirrhosis, recurrent ascites requiring paracentesis. He had cardiac surgery in 2009, mitral valve repair, two-vessel bypass. Last cardiac catheterization was in 2018. He had a patent saphenous vein graft to the right coronary, occluded RIDER to the LAD Patient currently sitting in the chair. He says he is walked quite a lot in the room and also in the corridor. He is not describing dizziness palpitations or chest discomfort. He is hoping to go home soon Review of Systems Constitutional Constitutional: Reports as per HPI and Reports weakness Cardiovascular Cardiovascular: Reports as per HPI, Denies chest pain, Reports irregular heart rhythm, Denies radiating jaw, neck or arm pain, Denies palpitations and Denies dyspnea Respiratory Respiratory: Denies dyspnea Neurologic Neurologic: Reports weakness Endocrine Endocrine: Denies palpitations PFSH All Active Problems (Updated 02/15/24 @ 13:37 by Princess Epperson NP) Thrombocytopenia (Chronic) Leukocytosis (Acute) Hypothyroidism (Chronic) Syncope and collapse (Acute) Elevated liver function tests (Acute) Generalized weakness (Acute) Umbilical hernia (Acute) Left inguinal hernia (Acute) Tricuspid regurgitation (Acute) Screening for colon cancer (Acute) Fatigue (Acute) DNR (do not resuscitate) (Acute) Ascites (Chronic) Medical History Cirrhosis BPH (benign prostatic hyperplasia) Bone metastasis Prostate cancer Ventricular tachycardia Cardiomyopathy Thrombocytopenia Iron deficiency anemia Inguinal hernia, recurrent Chronic kidney disease A-fib Congestive heart failure Lateral femoral cutaneous entrapment syndrome Nail disorder Ascites Nocturnal leg cramps Cor pulmonale Cardiorenal syndrome Corns and callus Bladder outlet obstruction Cholelithiasis Inguinal hernia GERD (gastroesophageal reflux disease) History of alcohol abuse Overweight Hyperlipidemia Anticoagulation adequate Hx of myocardial infarction 2007 Surgical History Hx of mitral valve repair (~2009) Hx of cystoscopy Hx of colonoscopy Hx of cataract surgery Hx of inguinal hernia surgery S/P CABG (coronary artery bypass graft) 2009 Social History Smoking/Tobacco Use Status: Former Tobacco Use Quit Date: 07/12/89 Tobacco: How many years used: 15 Smoking risk assessment performed?: Yes Alcohol Intake: former Drug use: Never Substance use type: does not use Housing: house Do you feel safe at home: Yes Do you feel safe in your relationship?: Yes Exam Const Other: Alert sitting in the chair no acute distress looks better than his baseline Neck Other: No neck vein distention or V waves carotid pulsations are normal no bruits Resp Auscultation: clear to auscultation bilaterally Cardio Other: Irregularly irregular Skin Other: Sallow warm and dry Extrem Other: No significant edema
== END ==
PROVIDERS: PCP Internal Medicine; Referring Provider Internal Medicine; Visit Provider Internal Medicine Cardiovascular Disease
CPT/HCPCS: 00123

== ENCOUNTER → 2024-02-17 10:51 | Outpatient (BNVA) | payer MEDICARE, SELFPAY | PROVIDERS: PCP Internal Medicine; Referring Provider Internal Medicine; Visit Provider Urology | DX: C61 Malignant neoplasm of prostate (principal); C79.51 Secondary malignant neoplasm of bone | CPT/HCPCS: 96402; J9217 ==